=== PATIENT | female | born 1965 | race Hispanic/Latino ===

== ENCOUNTER 2017-10-02 00:22 | Emergency (ER) | payer OTHER ==
[~2017-10-02] VITALS: Ht 149.9 cm; Wt 62.1 kg
[~2017-10-02 00:22] MED LIST: ACYCLOVIR200 MG PO; ASPIR 8181 MG PO; CETIRIZINE HCL10 MG PO; COLD & COUGH E118 ML; FERROUS SULFAT325 MG PO; GABAPENTIN100 MG PO; IBUPROFEN400 MG PO; LIPITOR20 MG; ULTRAM50 MG PO
[2017-10-02] MEDS ORDERED: PANTOPRAZOLE 40 MG 10ML VIAL IV STA (00:29)
[2017-10-02 00:53] LABS: BASOPHILS % 0.2 % (0.0-1.0); BILIRUBIN,URINE NEGATIVE (NEGATIVE); EOSINOPHILS # (AUTO) 0.4 (0.0-0.4); EOSINOPHILS % 4.4 % (0.0-6.0); HEMATOCRIT 31.9 % (34.2-44.1); HEMOGLOBIN 9.8 g/dL (12.0-16.0); KETONES,URINE NEGATIVE (NEGATIVE); LEUKOCYTE ESTERASE ,URINE NEGATIVE (NEGATIVE); LYMPHOCYTES # (AUTO) 3.2 (1.0-3.2); LYMPHOCYTES % 37.8 % (18.0-39.1); MEAN CORPUSCULAR HEMOGLOBIN 23.2 pg (28-32); MEAN CORPUSCULAR HGB CONC 30.7 g/dL (31-35); MEAN CORPUSCULAR VOLUME 75.4 fL (81-99); MONOCYTES # (AUTO) 0.5 (0.2-0.8); MONOCYTES % 6.1 % (4.4-11.3); NEUTROPHILS # (AUTO) 4.3 (2.1-6.9); NEUTROPHILS % 51.3 % (38.7-80.0); NITRITE,URINE NEGATIVE (NEGATIVE); PLATELET COUNT 246 x10e3/uL (140-360); PROTEIN,URINE DIPSTICK NEGATIVE (NEGATIVE); RED BLOOD COUNT 4.23 x10e6/uL (3.6-5.1); URINE UROBILINOGEN 0.2 mg/dL (0.2 - 1)
[2017-10-02 00:54] LABS: CLARITY,URINE CLEAR (CLEAR); COLOR,URINE YELLOW (YELLOW)
[2017-10-02 00:59] LABS: BACTERIA,URINE RARE /HPF; EPITHELIAL CELLS,URINE FEW /LPF; RBC,URINE 0-5 /HPF (0-5); WBC,URINE (MAN) 0-5 /HPF (0-5)
[2017-10-02 01:12] LABS: ALANINE AMINOTRANSFERASE 36 IU/L (0-55); ALBUMIN 3.5 g/dL (3.5-5.0); ALBUMIN/GLOBULIN RATIO 0.8 (0.8-2.0); ALKALINE PHOSPHATASE 80 IU/L (40-150); AMYLASE 113 U/L (25-125); ANION GAP 14.6 mmol/L (8-16); BLOOD UREA NITROGEN 18 mg/dL (7-26); BUN/CREATININE RATIO 24 (6-25); CALCIUM 8.8 mg/dL (8.4-10.2); CARBON DIOXIDE 21 mmol/L (22-29); CHLORIDE 105 mmol/L (98-107); CREATININE, SERUM 0.76 mg/dL (0.57-1.11); EST GLOMERULAR FILTRATION RATE > 60 ML/MIN (60-); GLUCOSE 117 mg/dL (74-118); LIPASE 31 U/L (8-78); POTASSIUM 3.6 mmol/L (3.5-5.1); SODIUM 137 mmol/L (136-145)
--- NOTE | 2017-10-02 03:21 | Diagnostic Imaging Report ---
EXAM: CT ABDOMEN/PELVIS W DATE: 10/02/2017 12:29 AM INDICATION: \S\ABD PAIN, H/O COLON CANCER, \[id number] \S\0148 \S\Y COMPARISON: None TECHNIQUE: The abdomen and pelvis were scanned using a multidetector helical scanner. Coronal and sagittal reformations were obtained. Routine protocol performed. The radiologist was notified of this study at 3:00 AM due to technical issues. IV Contrast: 100 ml Isovue 370 FINDINGS: LOWER THORAX: No consolidations LIVER/BILIARY: No masses. No ductal dilatation. GALLBLADDER: Surgically absent SPLEEN: Unremarkable PANCREAS: Unremarkable ADRENALS: No nodules KIDNEYS: There is a 1.4 x 1.3 cm left superior posterior exophytic likely hyperenhancing lesion (image 26). No hydronephrosis. GI TRACT: There is a hyperenhancing 2.8 cm mass of the lateral cecum/proximal ascending colon wall (image 51). Diverticulosis. Status post appendectomy. VESSELS: Unremarkable PERITONEUM/RETROPERITONEUM: No free air or fluid LYMPH NODES: Rounded 6 mm ileocecal node (image 52, coronal image 53). No other suspicious adenopathy. REPRODUCTIVE ORGANS/BLADDER: Hysterectomy. Otherwise unremarkable SOFT TISSUES: Unremarkable BONES: No suspicious bone lesions. IMPRESSION: 1. Cecal/proximal ascending colon cancer. Subcentimeter reactive or metastatic ileocecal node. No distant metastatic disease. 2. Left superior renal lesion (1.4 cm), most compatible with small renal cell carcinoma. Discussed with Physician: ANN CHADWICK MD at 3:15 AM on 10/02/2017. Signed by: Dr Tarsha Mary MD on 10/02/2017 3:18 AM
[2017-10-02] MEDS ORDERED: SODIUM CHLORIDE 0.9% 50ML 50 ML ONE (07:11)
[2017-10-02] MEDS ORDERED: IOPAMIDOL 370 MG/ML 200 ML INFUS..BTL INJ ONE (07:13)
== END 2017-10-02 03:38 | disposition home or self-care (01) ==
LOC: ER 00:22
DX: R10.13 Epigastric pain (principal); Z85.038 Personal history of other malignant neoplasm of large intestine; Z86.73 Personal history of transient ischemic attack (TIA), and cerebral infarction without residual deficits
CPT/HCPCS: 36415; 74177; 80053; 81001; 82150; 83690; 85025; 99284; Q9967

== ENCOUNTER 2018-01-14 14:52 | Emergency (ER) | payer OTHER ==
[~2018-01-14] VITALS: Ht 149.9 cm; Wt 61.2 kg
--- OUTSIDE RECORDS SUMMARY | 2018-01-14 14:54 | XMS REPORT ---
Author Author [facility] Address Unknown Phone Unavailable Care Team Providers Care Substation Operator Conversion Name Role Phone ANN CHADIWCK Unavailable Unavailable DYLAN PRUITT Unavailable Unavailable BULMARO THEODORE Unavailable Unavailable HELEN GRIFFIN Unavailable Unavailable Problems This patient has no known problems. Allergies, Adverse Reactions, Alerts This patient has no known allergies or adverse reactions. Medications This patient has no known medications. Results Test Description Test Time Test Comments Text Results Atomic Results Result Comments CT ABDOMEN/PELVIS W [place] [address] Patient Name: SASHA POPE MR #: [id number] : 1965 Age/Sex: 52/F Req #: [id number] Adm Physician: Ordered by: ANN CHADWICK MD Report #: [id number] Location: ER Room/Bed: ___ Procedure: [id number] CT/CT ABDOMEN/PELVIS W Exam Date: 10/02/17 Exam Time: 147 REPORT STATUS: Signed EXAM: CT ABDOMEN/PELVIS W DATE: 10/02/2017 12:29 AM INDICATION: S ABD PAIN, H/O COLON CANCER, S [id number] S 0148 S Y COMPARISON: None TECHNIQUE: The abdomen and pelvis were scanned using a multidetector helical scanner. Coronal and sagittal reformations were obtained. Routine protocol performed. The radiologist was notified of this study at 3:00 AM due to technical issues. IV Contrast: 100 ml Isovue 370 FINDINGS: LOWER THORAX: No consolidations LIVER/BILIARY: No masses. No ductal dilatation. GALLBLADDER: Surgically absent SPLEEN: Unremarkable PANCREAS: Unremarkable ADRENALS: No nodules KIDNEYS: There is a 1.4 x 1.3 cm left superior posterior exophytic likely hyperenhancing lesion (image 26). No hydronephrosis. GI TRACT: There is a hyperenhancing 2.8 cm mass of the lateral cecum/proximal ascending colon wall (image 51). Diverticulosis. Status post appendectomy. VESSELS: Unremarkable PERITONEUM/ RETROPERITONEUM: No free air or fluid LYMPH NODES: Rounded 6 mm ileocecal node (image 52, coronal image 53). No other suspicious adenopathy. REPRODUCTIVE ORGANS/BLADDER: Hysterectomy. Otherwise unremarkable SOFT TISSUES: Unremarkable BONES: No suspicious bone lesions. IMPRESSION: 1. Cecal/proximal ascending colon cancer. Subcentimeter reactive or metastatic ileocecal node. No distant metastatic disease. 2. Left superior renal lesion (1.4 cm), most compatible with small renal cell carcinoma. Discussed with Physician: ANN CHADWICK MD at 3:15 AM on 10/02/2017. Signed by: Dr Isaac Mary MD on 10/02/2017 3:18 AM Dictated By: ISAAC MARY MD 7 Transcribed By: GARO on 10/02/17317 COPY TO: ANN CHADWICK MD CHEST 2 VIEWS [place] [address] Patient Name: SASHA POPE MR #: [id number] : 1965 Age/Sex: 52/F Req # : [id number] Adm Physician: Ordered by: DYLAN PRUITT MD Report #: [id number] Location: Room/Bed: Procedure: [id number] DX/CHEST 2 VIEWS Exam Date: 07/26/17 Exam Time: 1546 REPORT STATUS: Signed PROCEDURE: CHEST 2 VIEWS TECHNIQUE: PA and lateral chest INDICATION: Fall COMPARISON: [facility], DX, CHEST 2 VIEWS, 07/01/2017, 3:00. FINDINGS: Lungs are clear and symmetrically inflated. No pleural effusions. Normal heart size, mediastinal contour, and pulmonary vasculature. Loop recorder over the left hemithorax. Intact skeleton. Cholecystectomy clips. CONCLUSION: No acute abnormality. Dictated by: Billy Thorne M.D. on at 16:25 Electronically approved by: Billy Thorne M.D. on 07/26/2017 at 16:25 Dictated By: BILLY THORNE MD 24 Transcribed By: JERALD on 07/26/171624 COPY TO: DYLAN PRUITT MD CT CERVICAL SPINE WO [place] [address] Patient Name: SASHA POPE MR #: [id number] : 1965 Age/Sex: 52/F Req #: [id number] [facility] Physician: Ordered by: DYLAN PRUITT MD Report #: [id number] Location: ER Room/Bed: Procedure: [id number] CT/CT CERVICAL SPINE WO Exam Date: 07/26/17 Exam Time: 1530 REPORT STATUS: Signed Exams: Head and cervical spine CTs without IV contrast History: Trauma, fall hit right side of for head Comparison studies: Head CT 04/23/2015. Previous brain MRI of 2014 is currently on available on the PACS for comparison. Technique: Axial images were obtained from the brain and cervical spine. Coronal and sagittal images reconstructed from the axial data. Intravenous contrast: None Findings: Head CT: Scalp: No abnormalities. Bones: No fractures, blastic or lytic lesions. Extra-axial spaces: No masses. No fluid collections. Brain sulci: Appropriate for age. Ventricles: Normal in size and configuration. No hydrocephalus. Parenchyma: No mass, acute hemorrhage or acute or chronic cortical vascular insults. No abnormal densities. Minimal chronic small vessel ischemic changes as described on the previous brain MRI of 04/23 2015 are beyond resolution of CT. Sellar/ suprasellar region: No abnormalities. Craniocervical junction: The foramen magnum is patent. No Chiari one malformation. Cervical spine CT: Fractures: None. Soft tissues: No gross abnormalities. Atlantoaxial articulation: Intact. Alignment: Straightened curvature may be positional. No subluxations. Cervicomedullary junction: No abnormalities. The foramen magnum is patent. Vertebrae: No infection or neoplasm. Degenerative changes: Disc height is maintained. Patent canal and foramina. Small anterior disc ossify complexes at C4-C5 and C5-C6. Mild facet arthrosis at C5- C6 and C6-C7 Incidental findings: Atherosclerotic calcifications in the carotid siphons. Incidental 3 mm calcification in the right thyroid lobe. IMPRESSION: Head CT: 1. No acute abnormalities. 2. No changes from the previous head CT of 04/23/2015. Cervical spine CT: 1. No cervical spine fracture or subluxation. 2. Cannot adequately evaluate ligament, spinal cord and or vascular abnormalities on the basis of this examination. Signed by: Dr. John Saldivar M.D. on 07/26/2017 4:41 PM Dictated By : JOHN SALDIVAR MD 40 Transcribed By: GARO on 07/26/171640 COPY TO: DYLAN PRUITT MD CT BRAIN WO [place] [address] Patient Name: SASHA OPPE MR #: [id number] : 1965 Age/Sex: 52/F Req # : [id number] Adm Physician: Ordered by: DYLAN PRUITT MD Report #: [id number] Location: ER Room/Bed: Procedure: [id number] CT/CT BRAIN WO Exam Date: 07/26/17 Exam Time: 1530 REPORT STATUS: Signed Exams: Head and cervical spine CTs without IV contrast History: Trauma, fall hit right side of for head Comparison studies : Head CT 04/23/2015. Previous brain MRI of 04/23/2015 is currently on available on the PACS for comparison. Technique: Axial images were obtained from the brain and cervical spine. Coronal and sagittal images reconstructed from the axial data. Intravenous contrast: None Findings: Head CT: Scalp: No abnormalities. Bones: No fractures, blastic or lytic lesions. Extra-axial spaces: No masses. No fluid collections. Brain sulci: Appropriate for age. Ventricles: Normal in size and configuration. No hydrocephalus. Parenchyma: No mass, acute hemorrhage or acute or chronic cortical vascular insults. No abnormal densities. Minimal chronic small vessel ischemic changes as described on the previous brain MRI of 04/23 2015 are beyond resolution of CT. Sellar/suprasellar region: No abnormalities. Craniocervical junction: The foramen magnum is patent. No Chiari one malformation. Cervical spine CT: Fractures: None. Soft tissues: No gross abnormalities. Atlantoaxial articulation: Intact. Alignment: Straightened curvature may be positional. No subluxations. Cervicomedullary junction: No abnormalities. The foramen magnum is patent. Vertebrae: No infection or neoplasm. Degenerative changes: Disc height is maintained. Patent canal and foramina. Small anterior disc ossify complexes at C4-C5 and C5-C6. Mild facet arthrosis at C5-C6 and C6-C7 Incidental findings: Atherosclerotic calcifications in the carotid siphons. Incidental 3 mm calcification in the right thyroid lobe. IMPRESSION: Head CT: 1. No acute abnormalities. 2. No changes from the previous head CT of 04/23/2015. Cervical spine CT: 1. No cervical spine fracture or subluxation. 2. Cannot adequately evaluate ligament, spinal cord and or vascular abnormalities on the basis of this examination. Signed by: Dr. John Saldivar M.D. on 07/26/2017 4:41 PM Dictated By: JOHN SALDIVAR MD 40 Transcribed By: GARO on 07/26/171640 COPY TO: DYLAN PRUITT MD CHEST 2 VIEWS [place] [address] Patient Name: SASHA POPE MR #: [id number] : 1965 Age/Sex: 52/F Req # : [id number] Adm Physician: Ordered by: BULMARO THEODORE MD Report #: [id number] Location: ER Room/Bed: Procedure: [id number] DX/CHEST 2 VIEWS Exam Date: 07/01/17 Exam Time: 0300 REPORT STATUS: Signed CHEST 2 VIEWS, Technique: CHEST 2 VIEWS Comparison: 06/07/2017 Clinical history: Chest pain DISCUSSION : Stable appearance of the heart, mediastinum, lungs, pleural spaces, and bones. Stable left chest wall electronic device. IMPRESSION: No acute abnormality. Signed by: Dr Isaac Mary MD on 07/01/2017 3:47 AM Dictated By: ISAAC MARY MD 6 Transcribed By: GARO on 07/01/17346 COPY TO: BULMARO THEODORE MD CHEST SINGLE (PORTABLE) [place] [address] Patient Name: SASHA POPE MR #: [id number] : 1965 Age/Sex: 52/F Req #: [id number] Adm Physician: Ordered by: HELEN GRIFFIN MD Report #: [id number] Location: ER Room/Bed: Procedure: [id number] DX/CHEST SINGLE (PORTABLE) Exam Date: 06/07/17 Exam Time: 07 REPORT STATUS: Signed PROCEDURE: A single AP view of the chest. COMPARISON: Portable chest 04/23/2015. INDICATIONS: CHEST PAIN, SOB, COUGH FINDINGS: Lines/tubes: None. Lungs: The lungs are well inflated and clear. There is no evidence of pneumonia or pulmonary edema. Pleura: There is no pleural effusion or pneumothorax. Heart and mediastinum: The heart and the mediastinum are unremarkable. Bones: No acute bony abnormality. IMPRESSION: No acute radiographic abnormality. Dictated by: John Church M.D. on at 7:50 Electronically approved by: John Church M.D. on 2016 at 7:50 Dictated By: JOHN CHURCH MD 9 Transcribed By: JERALD on 06/07/17749 COPY TO: HELEN GRIFFIN MD
[2018-01-14 18:14] VITALS: BP 143/77
== END 2018-01-14 18:17 | disposition home or self-care (01) ==
LOC: FSED 14:52
DX: K92.2 Gastrointestinal hemorrhage, unspecified (principal); I10 Essential (primary) hypertension; Z85.038 Personal history of other malignant neoplasm of large intestine
CPT/HCPCS: 74177; 80053; 81003; 85025; 99284

== ENCOUNTER 2018-05-03 16:59 | Emergency (ER) | payer OTHER ==
[~2018-05-03] VITALS: Ht 149.9 cm; Wt 63.0 kg
[2018-05-03] MEDS ORDERED: ONDANSETRON HCL INJ 2 MG/ML VIAL IV STA (17:16)
[2018-05-03] MEDS ORDERED: MORPHINE SULFATE 2 MG/ML SYR IV STA (17:16)
[2018-05-03] MEDS ORDERED: FAMOTIDINE 20 MG/2 ML VIAL IV STA (17:16)
[2018-05-03] MEDS ORDERED: KETOROLAC TROMETHAMINE 30 MG/ML VIAL IV STA (19:10)
--- NOTE | 2018-05-03 21:18 | Diagnostic Imaging Report ---
EXAM: CT ABDOMEN AND PELVIS WITHOUT IV CONTRAST INDICATION: Right lower quadrant pain, history of kidney cancer COMPARISON: CT of the abdomen and pelvis with IV contrast October 02, 2017 TECHNIQUE: The abdomen and pelvis were scanned using a multidetector helical scanner. Coronal and sagittal reformations were obtained. Dose modulation, iterative reconstruction, and/or weight based adjustment of the mA/kV was utilized to reduce the radiation dose to as low as reasonably achievable. Routine protocol performed. IV Contrast: None Oral Contrast: None CTDIvol has been reviewed. It is below the limits set by the Radiation Protocol Committee (RPC). FINDINGS: LOWER THORAX: No consolidations LIVER: No masses BILIARY: Cholecystectomy. No ductal dilation. SPLEEN: No masses PANCREAS: No masses ADRENALS: No nodules KIDNEYS: Normal appearance of the right kidney. Surgical changes of partial left nephrectomy. No hydronephrosis. No nephroureterolithiasis. Normal CT of the abdomen and pelvis. GI TRACT: No wall thickening or obstruction. Sigmoid colon diverticulosis. Surgical changes around the cecum. No appendix. VESSELS: Minimal atherosclerotic changes of the abdominal aorta without aneurysm. PERITONEUM/RETROPERITONEUM: No free air or fluid LYMPH NODES: No lymphadenopathy REPRODUCTIVE ORGANS: The uterus and ovaries are not visualized. BLADDER: Normal SOFT TISSUES: Fat stranding in the anterior left abdomen may be postsurgical. Fat stranding left flank, consistent with postsurgical changes. BONES: No suspicious bone lesions. IMPRESSION: 1 interval partial left nephrectomy. 2. Interval surgical changes of the cecum. 3. No CT findings to explain patient's right lower quadrant pain. No nephroureterolithiasis. Signed by: Dr. Elvira Lake M.D. on 05/03/2018 9:13 PM
== END 2018-05-03 21:58 | disposition home or self-care (01) ==
LOC: FSED 16:59
DX: R10.33 Periumbilical pain (principal); R10.11 Right upper quadrant pain; R11.0 Nausea; I10 Essential (primary) hypertension; Z85.038 Personal history of other malignant neoplasm of large intestine; Z85.528 Personal history of other malignant neoplasm of kidney
CPT/HCPCS: 74176; 99284; J1885; J2405; J2270

== ENCOUNTER 2018-06-02 17:38 | Observation (INO) | payer OTHER ==
[~2018-06-02] VITALS: Ht 147.3 cm; Wt 64.5 kg
[2018-06-02 18:05] VITALS: BP 137/66
[2018-06-02 18:23] VITALS: BP 137/66
[2018-06-02] MEDS ORDERED: FENOFIBRATE145 MG (18:39)
[2018-06-02] MEDS ORDERED: SUCRALFATE1 GM PO (18:39)
[2018-06-02] MEDS ORDERED: GABAPENTIN300 MG PO (18:39)
[2018-06-02] MEDS ORDERED: TYLENOL WITH C1 EACH PO (18:39)
[2018-06-02] MEDS ORDERED: ONDANSETRON HCL INJ 2 MG/ML VIAL IV PRN (18:45)
[2018-06-02] MEDS ORDERED: HYDROMORPHONE 1MG/1ML INJ IV PRN (19:30)
[2018-06-02 19:45] VITALS: BP 135/61
[2018-06-02] MEDS ORDERED: HYDROMORPHONE 2MG/ML 2 MG/ML ML IV PRN (19:45)
--- NOTE | 2018-06-02 19:52 | Diagnostic Imaging Report ---
EXAMINATION: CHEST SINGLE (NOT PORTABLE) INDICATION: ^ABDOMEN PAIN ^[id number] ^1928 COMPARISON: Chest radiograph 07/26/2017 FINDINGS: AP view TUBES and LINES: None. LUNGS: Lungs are well inflated. Lungs are clear. There is no evidence of pneumonia or pulmonary edema. PLEURA: No pleural effusion or pneumothorax. HEART AND MEDIASTINUM: The cardiomediastinal silhouette is unremarkable. Loop recorder projects over the left chest. BONES AND SOFT TISSUES: No acute osseous lesion. Soft tissues are unremarkable. UPPER ABDOMEN: No free air under the diaphragm. IMPRESSION: No acute thoracic abnormality. Signed by: DR. Lopez Henson MD on 06/02/2018 7:49 PM
[2018-06-02] MEDS: DEXTROSE 5%/0.9% SOD CHL 1,000 ML IV SCH (20:10)
[2018-06-02] MEDS: LEVOFLOXACIN 500MG/D5W 100ML 100 ML IV SCH (20:21)
[2018-06-02 20:22] LABS: BILIRUBIN,URINE NEGATIVE (NEGATIVE); CLARITY,URINE SL CLOUDY (CLEAR); COLOR,URINE YELLOW (YELLOW); KETONES,URINE NEGATIVE (NEGATIVE); LEUKOCYTE ESTERASE ,URINE NEGATIVE (NEGATIVE); NITRITE,URINE NEGATIVE (NEGATIVE); PROTEIN,URINE DIPSTICK NEGATIVE (NEGATIVE); URINE UROBILINOGEN 0.2 mg/dL (0.2 - 1)
[2018-06-02 20:27] LABS: BASOPHILS % 0.3 % (0.0-1.0); EOSINOPHILS # (AUTO) 0.2 (0.0-0.4); EOSINOPHILS % 3.4 % (0.0-6.0); HEMOGLOBIN 11.8 g/dL (12.0-16.0); LYMPHOCYTES # (AUTO) 2.1 (1.0-3.2); LYMPHOCYTES % 30.7 % (18.0-39.1); MEAN CORPUSCULAR HEMOGLOBIN 27.8 pg (28-32); MEAN CORPUSCULAR HGB CONC 32.8 g/dL (31-35); MEAN CORPUSCULAR VOLUME 84.9 fL (81-99); MONOCYTES # (AUTO) 0.4 (0.2-0.8); MONOCYTES % 6.3 % (4.4-11.3); PLATELET COUNT 210 x10e3/uL (140-360); RED BLOOD COUNT 4.24 x10e6/uL (3.6-5.1); RED CELL DISTRIBUTION WIDTH 15.5 % (11.7-14.4)
[2018-06-02 20:33] LABS: BACTERIA,URINE FEW /HPF; EPITHELIAL CELLS,URINE MODERATE /LPF
[2018-06-02 20:47] LABS: ALANINE AMINOTRANSFERASE 62 IU/L (0-55); ALBUMIN 3.9 g/dL (3.5-5.0); ALKALINE PHOSPHATASE 89 IU/L (40-150); AMYLASE 63 U/L (25-125); ANION GAP 15.8 mmol/L (8-16); BLOOD UREA NITROGEN 14 mg/dL (7-26); BUN/CREATININE RATIO 18 (6-25); CALCIUM 9.7 mg/dL (8.4-10.2); CARBON DIOXIDE 23 mmol/L (22-29); CHLORIDE 102 mmol/L (98-107); CREATININE, SERUM 0.77 mg/dL (0.57-1.11); EST GLOMERULAR FILTRATION RATE > 60 ML/MIN (60-); GLUCOSE 101 mg/dL (74-118); LIPASE 16 U/L (8-78); POTASSIUM 3.8 mmol/L (3.5-5.1); SODIUM 137 mmol/L (136-145)
[2018-06-02 21:02] LABS: ERYTHROCYTE SEDIMENTATION RATE 41 mm/hr (0-20)
[2018-06-02] MEDS: METRONIDAZOLE 500MG/NS 100ML 100 ML IV SCH (21:25)
[2018-06-03] VITALS (8 sets, daily range): BP systolic 114–142; BP diastolic 59–76
--- NOTE | 2018-06-03 03:10 | Diagnostic Imaging Report ---
EXAM: ABDOMEN COMP INCL UPR or DECUB DATE: 06/03/2018 2:12 AM Time stamp on exam: 0233 hours INDICATION: Abdominal pain COMPARISON: None FINDINGS: LINES/TUBES: None BOWEL PATTERN: No evidence for obstruction. SOFT TISSUES: Surgical clips compatible with cholecystectomy and multiple sutures in the right lower quadrant compatible with prior bowel repair/resection LUNG BASES: Lung bases are clear. Partially visualized cardiac monitoring device BONES: No acute findings. IMPRESSION: Nonobstructive bowel gas pattern Signed by: Dr. Peter Cespedes M.D. on 06/03/2018 3:06 AM
[2018-06-03] MEDS: METRONIDAZOLE 500MG/NS 100ML 100 ML IV SCH ×3 (05:20→21:32)
[2018-06-03] MEDS: DEXTROSE 5%/0.9% SOD CHL 1,000 ML IV SCH ×3 (05:20→20:03)
--- NOTE | 2018-06-03 09:22 | Diagnostic Imaging Report ---
PROCEDURE:ABDOMINAL ULTRASOUND COMPARISON:CT abdomen and pelvis with contrast 10/02/2017, CT abdomen pelvis without contrast 05/03/2018. INDICATIONS:ABDOMINAL PAIN TECHNIQUE: Garrett-scale and color sonographic images were obtained of the abdomen in transverse and sagittal planes. FINDINGS: Liver: 14.4 cm in length in right midclavicular line. Normal parenchymal echogenicity. No masses. Main portal vein: 0.6 cm in caliber. hepatopetal flow Gallbladder: Surgically removed. Common Bile Duct: 0.2 cm in caliber. Right kidney: 9.9 cm in length. No solid or cystic mass lesion. No hydronephrosis. Normal renal cortical echogenicity. Left kidney: 9.3 cm in length. Contour deformity of the upper pole in keeping with partial left nephrectomy. No solid or cystic mass lesion. No hydronephrosis. Normal renal cortical echogenicity. Spleen: 10.4 cm in length. Uniform echotexture. Pancreas: The visualized portions are unremarkable. Inferior vena cava: Patent Aorta: Non-aneurysmal Ascites: None CONCLUSION: Post surgical changes related to partial left nephrectomy and cholecystectomy. Otherwise unremarkable abdominal ultrasound. Dictated by: Jeff Choudhury M.D. on 06/03/2018 at 9:29 Electronically approved by: Jeff Choudhury M.D. on 06/03/2018 at 9:29
[2018-06-03] MEDS ORDERED: HYDROMORPHONE 2MG/ML 2 MG/ML ML IV PRN (11:45)
[2018-06-03] MEDS: SUCRALFATE 1 GM TAB PO SCH ×2 (12:00→16:29)
[2018-06-03 12:23] LABS: OCCULT BLOOD STOOL NEGATIVE (NEGATIVE)
[2018-06-03] MEDS: GABAPENTIN 300 MG CAP PO SCH ×3 (13:00→21:32)
[2018-06-03 14:23] LABS: C DIFFICILE TOXIN A&B AMP PROB NEGATIVE (NEGATIVE)
--- NOTE | 2018-06-03 15:54 | History and Physical ---
CHIEF COMPLAINT: She is a 53-year-old female patient of mine who presented with right-sided upper abdominal pain. HISTORY OF PRESENT ILLNESS: Ms. Asher who had been diagnosed with right-sided colon cancer, and the patient had surgery and then followed by that the patient was found to have a left renal tumor with cancer, and the patient had partial nephrectomy. For the last 3 weeks, the patient was having severe right abdominal pain with some nausea. The patient had first emergency room visit at [facility] ER on [place] CT scan was done without contrast which was negative. The patient was discharged and then the patient continued to have pain and so the patient had come to the emergency room in [place], and the patient had a contrast CT done and was told that she might have UTI, and the patient was given Cipro, but the patient did not improve and the patient presented to the emergency room complaining of severe right-sided abdominal pain. PAST MEDICAL HISTORY: Significant for history of colon cancer and left kidney cancer, partial nephrectomy and colectomy in 2018. The patient had internal loop recorder implant done in 2015. Other medical history of hypertension, hyperlipidemia. Also, past surgical history of cholecystitis. ALLERGIES: NO KNOWN DRUG ALLERGIES. SOCIAL HISTORY: Denies smoking. Denies using alcohol. FAMILY HISTORY: diabetes mellitus. REVIEW OF SYSTEMS: As per HPI, right abdominal pain. PHYSICAL EXAMINATION GENERAL: A female patient lying in bed not in any acute distress. VITAL SIGNS: Temperature 98, pulse rate 88, HEENT: Normocephalic atraumatic. NECK: No JVD, no lymphadenopathy. LUNGS: Bilateral equal air entry; no rales, no rhonchi. HEART: S1, S2, regular, no murmur, no gallop. ABDOMEN: Soft, bowel sounds present. NEUROLOGIC: Nonfocal. No neurologic deficit. ADMITTING IMPRESSION DIAGNOSES 1. Severe right upper quadrant abdominal pain. 2. Gastritis. 3. Colitis. 4. History of colon cancer and renal cell cancer. PLAN: The patient will be admitted with the above diagnoses. The patient will be kept n.p.o. and IV fluids were given. An IV antibiotic will be given and will do cultures and stool for C. diff. and endoscopy. Will obtain previous CT scan of the abdomen report. Job#: [id number] [facility]
[2018-06-03] MEDS ORDERED: PANTOPRAZOLE 40 MG 10ML VIAL IV STA (17:54)
[2018-06-03] MEDS ORDERED: PROPOFOL IV EMULSION 10 MG/ML 50 ML VIAL ONE (18:58)
[2018-06-03] MEDS ORDERED: LIDOCAINE HCL 2% LOCAL INJ 5 ML SDV VIAL INJ ONE (18:58)
[2018-06-03] MEDS: PANTOPRAZOLE 40 MG 10ML VIAL IV SCH (19:10)
--- NOTE | 2018-06-03 19:18 | Operative Report ---
DATE OF PROCEDURE: June 03, 2018 REFERRING PHYSICIAN: Dr. China Hernandez. PROCEDURE PERFORMED: Esophagogastroduodenoscopy with biopsies. INDICATIONS FOR ESOPHAGOGASTRODUODENOSCOPY: Upper abdominal pain, nausea. MEDICATION: Patient was done under MAC. Please see anesthesiologist's note. PROCEDURE: With the patient in left lateral decubitus position, flexible fiberoptic Olympus gastroscope was introduced into the esophagus under direct visualization without any difficulty. There were some patchy erythema noted in distal esophagus. The scope was then advanced with ease into the stomach and mucosa overlying the antrum and the body revealed some diffuse intense erythema and moderate edema and biopsies were obtained and sent to stain for H. pylori. Pylorus appeared to be of normal contour and shape. It was intubated with ease and the scope was advanced all the way to the second portion of the duodenum. The scope was then withdrawn slowly. Mucosa overlying the proximal second portion and the duodenal bulb appeared to be within normal limits. The scope was then withdrawn back into the stomach and retroflexed and mucosa overlying the fundus and the cardia appeared to be within normal limits. The scope was then straightened out. The stomach was decompressed. The scope was subsequently withdrawn. Patient tolerated the procedure well. IMPRESSION 1. Distal esophagitis. 2. Gastritis, biopsied. Biopsies sent to stain for Helicobacter pylori. PLAN: Follow up histology. Initiate Protonix 40 mg 1 p.o. q.a.m. a.c.. Initiate full liquid diet. Job#: [id number] VAS cc:DR. China HERNANDEZ
[2018-06-03] MEDS: LEVOFLOXACIN 500MG/D5W 100ML 100 ML IV SCH (20:03)
[2018-06-04] VITALS (10 sets, daily range): BP systolic 107–142; BP diastolic 55–67
[2018-06-04] MEDS: DEXTROSE 5%/0.9% SOD CHL 1,000 ML IV SCH (04:20)
[2018-06-04 05:07] LABS: BASOPHILS % 0.4 % (0.0-1.0); EOSINOPHILS # (AUTO) 0.2 (0.0-0.4); EOSINOPHILS % 3.2 % (0.0-6.0); HEMATOCRIT 32.9 % (34.2-44.1); HEMOGLOBIN 10.6 g/dL (12.0-16.0); LYMPHOCYTES # (AUTO) 1.9 (1.0-3.2); LYMPHOCYTES % 35.6 % (18.0-39.1); MEAN CORPUSCULAR HEMOGLOBIN 27.7 pg (28-32); MEAN CORPUSCULAR HGB CONC 32.2 g/dL (31-35); MEAN CORPUSCULAR VOLUME 86.1 fL (81-99); MONOCYTES # (AUTO) 0.4 (0.2-0.8); MONOCYTES % 7.6 % (4.4-11.3); NEUTROPHILS # (AUTO) 2.8 (2.1-6.9); NEUTROPHILS % 53.2 % (38.7-80.0); PLATELET COUNT 169 x10e3/uL (140-360); RED BLOOD COUNT 3.82 x10e6/uL (3.6-5.1); RED CELL DISTRIBUTION WIDTH 15.5 % (11.7-14.4)
[2018-06-04 05:17] LABS: ALANINE AMINOTRANSFERASE 41 IU/L (0-55); ALBUMIN 3.1 g/dL (3.5-5.0); ALBUMIN/GLOBULIN RATIO 0.9 (0.8-2.0); ALKALINE PHOSPHATASE 66 IU/L (40-150); ANION GAP 13.8 mmol/L (8-16); BLOOD UREA NITROGEN 5 mg/dL (7-26); BUN/CREATININE RATIO 6 (6-25); CALCIUM 9.1 mg/dL (8.4-10.2); CARBON DIOXIDE 23 mmol/L (22-29); CHLORIDE 109 mmol/L (98-107); CREATININE, SERUM 0.79 mg/dL (0.57-1.11); EST GLOMERULAR FILTRATION RATE > 60 ML/MIN (60-); GLUCOSE 101 mg/dL (74-118); POTASSIUM 3.8 mmol/L (3.5-5.1); SODIUM 142 mmol/L (136-145)
[2018-06-04] MEDS: PANTOPRAZOLE 40 MG 10ML VIAL IV SCH ×2 (05:46→17:21)
[2018-06-04] MEDS: METRONIDAZOLE 500MG/NS 100ML 100 ML IV SCH ×3 (05:46→21:27)
[2018-06-04] MEDS: FENOFIBRATE 160 MG TABLET PO SCH (08:53)
[2018-06-04] MEDS: GABAPENTIN 300 MG CAP PO SCH ×4 (08:53→21:27)
[2018-06-04] MEDS: SUCRALFATE 1 GM TAB PO SCH ×3 (08:53→17:19)
[2018-06-04] MEDS: LEVOFLOXACIN 500MG/D5W 100ML 100 ML IV SCH (20:00)
[2018-06-04] MEDS: ACETAMINOPHEN 325 MG TAB PO PRN (20:02)
[2018-06-05] VITALS (7 sets, daily range): BP systolic 98–142; BP diastolic 55–69
[2018-06-05] MEDS: METRONIDAZOLE 500MG/NS 100ML 100 ML IV SCH (05:35)
[2018-06-05] MEDS: PANTOPRAZOLE 40 MG 10ML VIAL IV SCH (05:35)
[2018-06-05] MEDS: FENOFIBRATE 160 MG TABLET PO SCH (09:00)
[2018-06-05] MEDS ORDERED: DICYCLOMINE HCL 10 MG CAP PO SCH (09:00)
[2018-06-05] MEDS: GABAPENTIN 300 MG CAP PO SCH ×2 (09:02→12:16)
[2018-06-05] MEDS: SUCRALFATE 1 GM TAB PO SCH ×2 (09:02→12:16)
[2018-06-05] MEDS ORDERED: PANTOPRAZOLE SO40 MG PO (10:46)
[2018-06-05] MEDS: ACETAMINOPHEN 325 MG TAB PO PRN (12:17)
--- NOTE | 2018-08-02 04:16 | Discharge Summary ---
CHIEF COMPLAINT: Right abdominal pain, colon CA with kidney CA. FINAL DIAGNOSES 1. Acute gastritis. 2. Esophagitis. 3. Vascular headaches. PROCEDURE: EGD. DISPOSITION: Home. HOSPITAL COURSE: A 53-year-old female who presents to emergency room of this facility complaining of right abdominal pain, has history of colon CA, has history of left kidney CA. The patient is a direct admit to the [facility] floor to my service. She also has a history of UTI, hypertension and gastritis. Once on the floor, she will be started on IV fluids, lab studies will be requested. X-rays of abdomen will be requested. She will be started on Flagyl as well as Levaquin. GI review will be made with Dr. Arenas. Pain management will be placed as well. Once admitted, regarding her GI status, GI history, she was being reviewed by Dr. Gabriel Arenas and following his evaluation of the patient, his impression was positive upper abdominal pain, nausea for 3-week history. The patient is status post cholecystectomy. Will schedule the patient for EGD. Known history of colon resection, CA of colon, status post partial left nephrectomy for CA. She was in the IMCU with admission, she was started on NPO status. She was receiving levothyroxine as well as Flagyl. On IV fluids. She was given pain management as well as medications for nausea. Laboratory studies were showing stable electrolytes. Kidney function is stable. Glucose 101, CBC was stable. Her daily medications were being brought on board as well. Her diet was upgraded to a full liquid diet. C. diff studies were performed. It turned out to be negative. Stool for occult blood turned out to be negative. Underwent the EGD by Dr. Mark Arenas. Post procedure, she was still doing well. No more nausea or vomiting. Her abdominal pain had definitely improved. Still maintained full liquid diet that will be slowly advanced as tolerated. Lab studies were remaining stable and she was cleared for discharge and she ready to be released home on 06/05/2018 in good condition. PROCEDURES: EGD, 06/03/2018, Dr. Mark Arenas. Procedure was EGD with biopsies. Indications were upper abdominal pain with nausea. The procedure was carried out. The procedure was terminated. Findings from the procedure were showing distal esophagitis, and gastritis which was biopsied. The patient will begin Protonix 40 mg one tablet p.o. q.a.m. a.c. and we will be getting back on full liquid diet. Returned to recovery room in good condition. As mentioned, postop was uneventful. She was improving and she was cleared for discharge. With discharge, she will continue on GI soft diet and increase as tolerated. No equipment or supplies were necessary. No drains or [place] was needed. Activity level as directed by me as well as by Dr. Mark Arenas. FOLLOWUP: She will be returning back to her PCP, Dr. China Vera, in 2 days. Following back up with Dr. Mark Arenas in his office within 2 to 3 weeks for reevaluation. DISCHARGE MEDICATIONS: She was given a prescription for Protonix 40 mg one tablet p.o. daily. She will continue on Tylenol No. 3 300 mg tablet three times a day as needed for pain, fenofibrate 160 mg daily, gabapentin 300 mg four times a day, sucralfate 1 g three times a day. Dictated By: DAVIDE Sarkar. CIRO VERA MD Job#: [id number] ESTEVAN
== END 2018-06-05 13:27 | disposition home or self-care (01) ==
LOC: IMCU 17:38
PROVIDERS: ADMIT Internal Medicine; ATTEND Internal Medicine
DX: K29.70 Gastritis, unspecified, without bleeding (principal); K20.9 Esophagitis, unspecified; I10 Essential (primary) hypertension; E78.5 Hyperlipidemia, unspecified; Z95.811 Presence of heart assist device; K52.9 Noninfective gastroenteritis and colitis, unspecified; Z88.5 Allergy status to narcotic agent; Z90.5 Acquired absence of kidney; G44.1 Vascular headache, not elsewhere classified; Z85.038 Personal history of other malignant neoplasm of large intestine; Z85.528 Personal history of other malignant neoplasm of kidney
CPT/HCPCS: 36415 ×2; 43239; 71045; 76700; 80053 ×2; 81001; 82150; 82270; 83690; 85025 ×2; 85651; 87045; 87086; 87328; 87493; 88305; 88312; 96367 ×3; 96376; G0378 ×4; J1170; J1956 ×3; J2001; J2405; J7042 ×3; 96365

== ENCOUNTER → 2018-06-29 | Day surgery (SDC) | payer OTHER ==
[~2018-06-29] MED LIST changes: +FENOFIBRATE145 MG; +FENTANYL CITRATE/PF 100MCG/2 ML INJ ONE; +GABAPENTIN300 MG PO; +MIDAZOLAM HCL 2 MG/2 ML VIAL ONE; +PANTOPRAZOLE SO40 MG PO; +PROPOFOL IV EMULSION 10 MG/ML 50 ML VIAL ONE; +SUCRALFATE1 GM PO; +TYLENOL WITH C1 EACH PO
[2018-06-29 14:30] VITALS: BP 150/81
[2018-06-29 14:35] LABS: WBC,FECAL (FECAL LACTOFERRIN) NEGATIVE (NEGATIVE)
--- NOTE | 2018-06-29 14:53 | Operative Report ---
DATE OF PROCEDURE: June 29, 2018 REFERRING PHYSICIAN: Dr. China Hernandez. PROCEDURE PERFORMED: Colonoscopy and polypectomy with biopsies. INDICATIONS FOR COLONOSCOPY: History of colon cancer, diarrhea. MEDICATION: Patient was done under MAC. Please see anesthesiologist's note. PROCEDURE: With the patient in the left lateral decubitus position, the flexible fiberoptic Olympus colonoscope was inserted into the rectum with ease and advanced all the way to the ileocolic anastomosis. Anastomosis appeared intact. There was no evidence of recurrence. The scope was then withdrawn slowly, and the mucosa throughout the colon revealed some patchy areas of erythema and low-grade edema, and random biopsies were obtained. There was some scattered diverticular disease noted. Two polyps were hot biopsied from the transverse colon. Two polyps were hot biopsied from the sigmoid colon. The scope was then retroflexed into the distal rectum and small internal hemorrhoids were noted, none of which was actively bleeding. The scope was then straightened out. It was subsequently withdrawn after securing an adequate stool specimen that was sent for the appropriate stool studies. Patient tolerated the procedure well. IMPRESSION: 1. Ileocolic anastomosis intact. No evidence of recurrence. 2. Diverticulosis. 3. Rule out patchy mild colitis. Random biopsies obtained. 4. Transverse colon polyps times 2 hot biopsied. 5. Sigmoid colon polyps times 2 hot biopsied. 6. Internal hemorrhoids, none actively bleeding. PLAN: Follow up histology. Initiate VSL#3 one p.o. daily and Bentyl 10 mg 1 p.o. t.i.d. Timing of followup colonoscopy pending pathology report. Job#: [id number] EV cc:CIRO HERNANDEZ MD
[2018-06-30 13:03] LABS: C DIFFICILE TOXIN A&B AMP PROB NEGATIVE (NEGATIVE)
== END | disposition home or self-care (01) ==
LOC: OR 10:24
PROVIDERS: ATTEND Internal Medicine Gastroenterology
DX: Z85.038 Personal history of other malignant neoplasm of large intestine (principal); K57.30 Diverticulosis of large intestine without perforation or abscess without bleeding; K63.5 Polyp of colon; K64.8 Other hemorrhoids; R03.0 Elevated blood-pressure reading, without diagnosis of hypertension; Z88.5 Allergy status to narcotic agent
CPT/HCPCS: 45384; 83630; 83993; 87045; 87177; 87328; 87493; 93005; J2250; 45378; 45385

== ENCOUNTER 2018-10-20 00:06 | Emergency (ER) | payer OTHER ==
[~2018-10-20] VITALS: Ht 147.3 cm; Wt 63.5 kg
[~2018-10-20 00:06] MED LIST changes: -FENTANYL CITRATE/PF 100MCG/2 ML INJ ONE; -MIDAZOLAM HCL 2 MG/2 ML VIAL ONE; -PROPOFOL IV EMULSION 10 MG/ML 50 ML VIAL ONE
--- OUTSIDE RECORDS SUMMARY | 2018-10-20 00:10 | XMS REPORT | Continuity of Care Document ---
Author Author [facility] Interface Address Unknown Phone Unavailable Problems Problem Status Onset Date Classification Date Reported Comments Source BACK Active 10/11/2018 [facility] [place] Discharge Diagnosis: Chest pain 02/26/2017 03/01/2017 [facility] CHEST PAIN Active 02/25/2017 [facility] Medications Medication Details Route Status Patient Instructions Ordering Provider Order Date Source Aspirin 81 MG Chewable Tablet 324 mg, Route: PO, Drug form: CHEWTAB, ONCE, Dosing Weight 62.273, kg, Priority: STAT, Start date: 02/26/17 4:29:00 CDT, Stop date: 02/26/17 4:29:00 CDT Inactive 02/26/2017 [facility] Allergies, Adverse Reactions, Alerts Substance Category Reaction Severity Reaction type Status Date Reported Comments Source morphine Assertion Drug allergy Active [facility] Immunizations Immunization Date Given Site Status Last Updated Comments Source Results Order Name Results Value Reference Range Date Interpretation Comments Source CARDIAC ENZYMES Troponin-I null 0.00 - 0.40 02/26/2017 [facility] CARDIAC ENZYMES CK MB Index 0.8 0.0 - 2.5 02/26/2017 [facility] CARDIAC ENZYMES BNP 49 pg/mL <=100 pg/mL 02/26/2017 [facility] CARDIAC ENZYMES Total CK 101 unit/L 12 - 191 02/26/2017 [facility] CARDIAC ENZYMES CK MB 0.8 ng/mL 0.5 - 3.6 02/26/2017 [facility] CARDIAC ENZYMES Troponin-I null 0.00 - 0.40 02/26/2017 [facility] CHEM PANEL eGFR 94 mL/min/1.73m2 02/26/2017 Result Comment: The eGFR is calculated using the CKD-EPI formula. In most young, healthy individuals the eGFR will be >90 mL/min/1.73m2. The eGFR declines with age. An eGFR of 60-89 may be normal in some populations, particularly the elderly, for whom the CKD-EPI formula has not been extensively validated. Use of the eGFR is not recommended in the following populations: Individuals with unstable creatinine concentrations, including patients and those with serious co-morbid conditions. Patients with extremes in muscle mass or diet. The data above are obtained from the National Kidney Disease Education Program (NKDEP) which additionally recommends that when the eGFR is used in patients with extremes of body mass index for purposes of drug dosing, the eGFR should be multiplied by the estimated BMI. [facility] CHEM PANEL A/G Ratio 0.8 0.7 - 1.6 02/26/2017 [facility] CHEM PANEL Creatinine Lvl 0.73 mg/dL 0.50 - 1.40 02/26/2017 [facility] CHEM PANEL BUN 15 mg/dL 7 - 22 02/26/2017 [facility] CHEM PANEL Glucose Lvl 99 mg/dL 70 - 99 02/26/2017 [facility] CHEM PANEL AGAP 7.9 meq/L 10.0 - 20.0 02/26/2017 [facility] CHEM PANEL Bili Total 0.1 mg/dL 0.2 - 1.3 02/26/2017 [facility] CHEM PANEL ALT 72 unit/L 0 - 65 02/26/2017 [facility] CHEM PANEL Albumin Lvl 3.4 g/dL 3.5 - 5.0 02/26/2017 [facility] CHEM PANEL Total Protein 7.9 g/dL 6.4 - 8.4 02/26/2017 [facility] CHEM PANEL B/C Ratio 21 6 - 25 02/26/2017 [facility] CHEM PANEL Globulin 4.5 g/dL 2.7 - 4.2 02/26/2017 [facility] CHEM PANEL Sodium Lvl 139 meq/L 135 - 145 02/26/2017 [facility] CHEM PANEL Chloride Lvl 106 meq/L 95 - 109 02/26/2017 [facility] CHEM PANEL Potassium Lvl 3.9 meq/L 3.5 - 5.1 02/26/2017 [facility] CHEM PANEL Alk Phos 90 unit/L 39 - 136 02/26/2017 [facility] CHEM PANEL AST 55 unit/L 0 - 37 02/26/2017 [facility] CHEM PANEL CO2 29 meq/L 24 - 32 02/26/2017 [facility] CHEM PANEL Calcium Lvl 8.9 mg/dL 8.5 - 10.5 02/26/2017 [facility] HEMATOLOGY Segs-Bands # 4.6 K/CMM 1.5 - 8.1 02/26/2017 [facility] HEMATOLOGY Eosinophils 3.3 % 0.0 - 4.0 02/26/2017 [facility] HEMATOLOGY Basophils 0.4 % 0.0 - 1.0 02/26/2017 [facility] Eosinophils # 0.3 K/CMM 0.0 - 0.5 02/26/2017 [facility] Monocytes # 0.7 K/CMM 0.0 - 0.8 02/26/2017 [facility] Lymphocytes # 2.9 K/CMM 1.0 - 5.5 02/26/2017 [facility] Microcyte 1+ *ABN* (02/26/17 12:56 AM) None Seen 02/26/2017 [facility] Segs 53.8 % 45.0 - 75.0 02/26/2017 [facility] Lymphocytes 34.4 % 20.0 - 40.0 02/26/2017 [facility] Monocytes 8.1 % 2.0 - 12.0 02/26/2017 [facility] D-Dimer null 02/26/2017 [facility] PTT 24.1 s 22.9 - 35.8 02/26/2017 [facility] INR 0.98 0.85 - 1.17 02/26/2017 [facility] PT 13.2 s 12.0 - 14.7 02/26/2017 [facility] MCHC 32.4 g/dL 32.0 - 36.0 02/26/2017 [facility] Hgb 10.6 g/dL 12.0 - 16.0 02/26/2017 [facility] WBC 8.5 K/CMM 3.7 - 10.4 02/26/2017 [facility] RBC 4.17 M/CMM 4.20 - 5.40 02/26/2017 [facility] RDW 15.9 % 11.5 - 14.5 02/26/2017 [facility] MCV 78.8 fL 80.0 - 98.0 02/26/2017 [facility] Hct 32.9 % 36.0 - 48.0 02/26/2017 [facility] MCH 25.5 pg 27.0 - 31.0 02/26/2017 [facility] Platelet 255 K/CMM 133 - 450 02/26/2017 [facility] MPV 7.2 fL 7.4 - 10.4 02/26/2017 [facility] Chest 1view DX Chest 1view DX EXAM: XR CHEST 1 VIEW DATE: 02/26/2017 12:49 AM CDT INDICATION: Chest pain. COMPARISON: 03/08/2016. TECHNIQUE: A single AP view of the chest was obtained. FINDINGS: No focal consolidation or pneumothorax is identified. The cardiac silhouette is mildly enlarged. The costophrenic recesses are sharp and without effusion. No acute osseous abnormality is noted. IMPRESSION: No acute cardiopulmonary abnormality. SL: [id number] 02/26/2017 - - Read by: Houston Bella MD Dictated Date/time: 02/26/17 01:02 Electronically Signed by: Houston Bella MD 02/26/17 01:03 FINAL REPORT [facility] Vital Signs Vital Sign Value Date Comments Source Systolic (mm Hg) 128 02/26/2017 [facility] Diastolic (mm Hg) 74 02/26/2017 [facility] Respitory Rate 18 02/26/2017 [facility] Respitory Rate 15 02/26/2017 [facility] Systolic (mm Hg) 126 02/26/2017 [facility] Diastolic (mm Hg) 78 02/26/2017 [facility] Systolic (mm Hg) 148 02/26/2017 [facility] Diastolic (mm Hg) 66 02/26/2017 [facility] Respitory Rate 25 02/26/2017 [facility] Temperature Oral (F) 98.7 F 02/26/2017 [facility] Heart Rate 98 02/26/2017 [facility] BMI Calculated 28.69 02/26/2017 [facility] Weight 62.273 02/26/2017 [facility] Temperature Oral (F) 98.6 F 02/26/2017 [facility] Height 147.32 cm 02/26/2017 [facility] Heart Rate 67 02/26/2017 [facility] Encounters Location Location Details Encounter Type Encounter Number Reason For Visit Attending Provider ADM Date DC Date Status Source [facility] Emergency [id number] Elvia Pinto 02/26/2017 02/26/2017 [facility] Procedures Procedure Code Date Perfomer Comments Source
[2018-10-20] MEDS ORDERED: ONDANSETRON HCL INJ 2MG/ML 2ML 2 MG/ML VIAL IV STA (00:22)
[2018-10-20] MEDS ORDERED: KETOROLAC TROMETHAMINE 30 MG/ML VIAL IV STA (00:22)
[2018-10-20] MEDS ORDERED: SODIUM CHLORIDE 0.9% 1000ML 1,000 ML IV SCH (00:30)
[2018-10-20] MEDS ORDERED: KETOROLAC TROME10 MG PO (01:15)
--- NOTE | 2018-10-20 01:34 | Diagnostic Imaging Report ---
EXAM: CT Abdomen and Pelvis WITHOUT contrast INDICATION: Right upper quadrant pain. ^[id number] ^[id number] COMPARISON: CT abdomen and pelvis 05/03/2018 TECHNIQUE: Abdomen and pelvis were scanned utilizing a multidetector helical scanner from the lung base to the pubic symphysis without administration of IV contrast. Absence of intravenous contrast decreases sensitivity for detection of focal lesions and vascular pathology. Coronal and sagittal reformations were obtained. Routine protocol was performed. IV CONTRAST: None ORAL CONTRAST: Water COMPLICATIONS: None RADIATION DOSE: Total DLP: 620.52 mGy*cm Estimated effective dose: (DLP x 0.015 x size factor) mSv Dose modulation, iterative reconstruction, and/or weight based adjustment of the mA/kV was utilized to reduce the radiation dose to as low as reasonably achievable. FINDINGS: LINES and TUBES: None. LOWER THORAX: Unremarkable HEPATOBILIARY: No focal hepatic lesions. No biliary ductal dilation. GALLBLADDER: Cholecystectomy. SPLEEN: No splenomegaly. PANCREAS: No focal masses or ductal dilatation. ADRENALS: No adrenal nodules KIDNEYS/URETERS: Stable postsurgical changes of partial left nephrectomy. No hydronephrosis. No cystic or solid mass lesions. No stones. GI TRACT: No abnormal distention, wall thickening, or evidence of bowel obstruction. There are diverticula within the colon without evidence of diverticulitis. There are post surgical changes of appendectomy. PELVIC ORGANS/BLADDER: Hysterectomy. No adnexal masses. Underdistended bladder, limiting evaluation. LYMPH NODES: No lymphadenopathy. VESSELS: There is mild atherosclerotic disease in the aorta and major arterial branches. PERITONEUM / RETROPERITONEUM: No free air or fluid. BONES: There are degenerative changes in the lumbar spine. SOFT TISSUES: Unremarkable. IMPRESSION: No acute abnormalities. Signed by: DR. Lopez Henson MD on 10/20/2018 1:31 AM
[2018-10-20] MEDS ORDERED: OMEPRAZOLE40 MG PO (01:40)
[2018-10-20 01:59] VITALS: BP 144/73
[2018-10-20] MEDS ORDERED: IOPAMIDOL 370 MG/ML 200 ML INFUS..BTL INJ ONE (13:59)
[2018-10-20] MEDS ORDERED: SODIUM CHLORIDE 0.9% 50ML 50 ML ONE (13:59)
== END 2018-10-20 01:53 | disposition home or self-care (01) ==
LOC: FSED 00:06
DX: R10.11 Right upper quadrant pain (principal); Z85.038 Personal history of other malignant neoplasm of large intestine
CPT/HCPCS: 74176; 80053; 81003; 82553; 84484; 85025; 93005; 99284; Q9967

== ENCOUNTER 2018-10-20 04:21 | Observation (INO) | payer OTHER ==
[~2018-10-20] VITALS: Ht 147.3 cm; Wt 65.0 kg
[~2018-10-20 04:21] MED LIST changes: +KETOROLAC TROME10 MG PO; +OMEPRAZOLE40 MG PO
[2018-10-20] MEDS ORDERED: FENTANYL CITRATE/PF 100MCG/2 ML INJ IJ ONE (04:45)
[2018-10-20] MEDS ORDERED: DONNATAL/LIDOCAINE/MAALOX 30 ML SUSP PO ONE (04:45)
[2018-10-20] MEDS ORDERED: FENTANYL CITRATE/PF 100MCG/2 ML INJ IV ONE ×3 (06:30→09:45)
[2018-10-20] MEDS ORDERED: ONDANSETRON HCL INJ 2MG/ML 2ML 2 MG/ML VIAL IV PRN (06:30)
[2018-10-20] MEDS ORDERED: PANTOPRAZOLE 40 MG 10ML VIAL IV STA (06:35)
[2018-10-20] MEDS ORDERED: HYDROMORPHONE 1MG/1ML INJ IV PRN (06:45)
--- NOTE | 2018-10-20 08:35 | NUR ---
Received report from AVELINA Bond. Awating for patient to arrive at facility.
--- NOTE | 2018-10-20 09:55 | NUR ---
Patient arrived at facility at this time.
[2018-10-20] MEDS ORDERED: FENOFIBRATE 145 MG TAB PO SCH ×2 (10:45→21:00)
[2018-10-20] MEDS: D5.45%NS/KCL 20MEQ 1,000 ML IV SCH ×3 (11:04→22:40)
--- NOTE | 2018-10-20 11:15 | NUR ---
Walking rounds completed with Jonah QUAN, day shift nurse. Assumed care, pt in no acute distress at this time.
[2018-10-20 13:20] VITALS: BP 132/59
[2018-10-20] MEDS: SUCRALFATE 1 GM TAB PO SCH ×2 (13:53→16:30)
--- NOTE | 2018-10-20 14:26 | Diagnostic Imaging Report ---
EXAM: CT Abdomen and Pelvis WITH contrast INDICATION: Right sided abdominal pain. COMPARISON: CT abdomen and pelvis 10/20/2018 at 0048 hours TECHNIQUE: Abdomen and pelvis were scanned utilizing a multidetector helical scanner from the lung base to the pubic symphysis with administration of IV contrast. Coronal and sagittal reformations were obtained. Routine protocol was performed. Dose modulation, iterative reconstruction and/or weight based adjustment of the mA/kV was utilized to reduce the radiation dose to as low as reasonably achievable. IV CONTRAST: 100 cc of Isovue-370 ORAL CONTRAST: Water COMPLICATIONS: None RADIATION DOSE: Total DLP: 417.76 mGy*cm Estimated effective dose: (DLP x 0.015 x size factor) mSv FINDINGS: LINES and TUBES: None. LOWER THORAX: Unremarkable HEPATOBILIARY: Fatty infiltration of the liver. No focal hepatic lesions. No biliary ductal dilation. GALLBLADDER: Cholecystectomy. SPLEEN: No splenomegaly. PANCREAS: No focal masses or ductal dilatation. ADRENALS: No adrenal nodules KIDNEYS/URETERS: Stable postsurgical changes of partial left upper pole nephrectomy. No hydronephrosis. No cystic or solid mass lesions. No stones. GI TRACT: No abnormal distention, wall thickening, or evidence of bowel obstruction. Diverticulosis without evidence of diverticulitis. There are post surgical changes of appendectomy. PELVIC ORGANS/BLADDER: Hysterectomy. No adnexal masses. Underdistended bladder, limiting evaluation. Pelvic calcification superior to the bladder and just underneath the colon mimics a bladder stone but on the basis of the sagittal reformations appears outside of the bladder. LYMPH NODES: No lymphadenopathy. VESSELS: Atherosclerotic calcification. PERITONEUM / RETROPERITONEUM: No free air or fluid. BONES: Mild degenerative changes in the lumbar spine. SOFT TISSUES: Unremarkable. IMPRESSION: 1. Fatty infiltration of the liver. 2. Diverticulosis without evidence of inflammation. Signed by: Dr. Gallito Dunbar DO on 10/20/2018 2:23 PM
[2018-10-20 15:51] VITALS: BP 109/54
[2018-10-20 16:00] VITALS: BP 109/54
[2018-10-20 16:14] VITALS: BP 109/54
[2018-10-20] MEDS: GABAPENTIN 300 MG CAP PO SCH ×2 (16:45→21:22)
[2018-10-20] MEDS: HYDROMORPHONE 2MG/ML 2 MG/ML ML IV PRN (16:45)
--- NOTE | 2018-10-20 19:00 | NUR ---
Patient visited in room during nursing rounds. Patient alert and oriented x3. No distress or discomfort noted. Ambulatory in room prn. Pt on IVF (D51/2NS with 20meqKCL at 125ml/hr). Call purcell within reach. Will monitor closely.
[2018-10-20 20:00] VITALS: BP 109/54
[2018-10-20 20:18] VITALS: BP 124/58
[2018-10-20] MEDS: FENOFIBRATE 145 MG TAB PO SCH (21:22)
[2018-10-21] VITALS (8 sets, daily range): BP systolic 105–140; BP diastolic 53–63
[2018-10-21] MEDS: PANTOPRAZOLE 40 MG 10ML VIAL IV SCH ×2 (01:52→14:45)
--- NOTE | 2018-10-21 04:09 | History and Physical ---
HISTORY OF PRESENT ILLNESS: This is a 53-year-old female patient of mine, who had presented to my office yesterday with right-sided abdominal pain. The patient was evaluated in the office and sent for the outpatient CAT scan with contrast as the patient has history of kidney cancer, colon cancer, colectomy, and left nephrectomy. The patient denies having any nausea or vomiting. The patient is stating that pain medication is not helping her. Subsequently, the patient had gone to the [facility] yesterday night. The patient was evaluated and noncontrast CT was done and the patient was discharged home with pain medicine, but the patient continued to have severe pain, so the patient did come back to emergency room last night and the patient was subsequently admitted. The patient's noncontrast CT had not shown any abnormalities. PAST MEDICAL HISTORY: History of lumbar and cervical spondylosis and radiculopathy, herpes zoster, and history of cardiac arrhythmias. ALLERGIES: THE PATIENT IS ALLERGIC TO MORPHINE. PAST SURGICAL HISTORY: Left nephrectomy, internal heart monitor was placed, and the patient had appendectomy. The patient has internal loop recorder implanted in 2016. PHYSICAL EXAMINATION: GENERAL: She is an elderly female patient, lying in bed, not in any acute distress. VITAL SIGNS: Temperature 99, pulse rate is 100, respiratory rate 16, and blood pressure 110/80. HEENT: Normocephalic, atraumatic. NECK: No JVD. No lymphadenopathy. LUNGS: Bilateral equal air entry. No rales. No rhonchi. HEART: S1 and S2, regular. No murmur. No gallop. ABDOMEN: Soft. Bowel sounds are present. The patient has right-sided mid abdomen severe tenderness present. NEUROLOGIC: No focal neurological deficits. ADMITTING INPATIENT DIAGNOSES: Severe right-sided abdominal pain, history of renal cell cancer, colon cancer, gastritis, colitis, irritable bowel syndrome, history of herpes zoster, and lumbar and cervical radiculopathy. PLAN: The patient will be admitted with the above diagnoses. We will do CT scan with contrast study. We will obtain GI and Surgery evaluation. We will continue the patient on gabapentin and give IV analgesics. MD EDUARDO Cortez/RACHELL /[id number]
[2018-10-21 05:12] LABS: BASOPHILS % 0.2 % (0.0-1.0); EOSINOPHILS # (AUTO) 0.3 (0.0-0.4); EOSINOPHILS % 6.4 % (0.0-6.0); HEMATOCRIT 33.2 % (34.2-44.1); HEMOGLOBIN 10.7 g/dL (12.0-16.0); LYMPHOCYTES # (AUTO) 1.8 (1.0-3.2); LYMPHOCYTES % 41.4 % (18.0-39.1); MEAN CORPUSCULAR HEMOGLOBIN 28.6 pg (28-32); MEAN CORPUSCULAR HGB CONC 32.2 g/dL (31-35); MEAN CORPUSCULAR VOLUME 88.8 fL (81-99); MONOCYTES # (AUTO) 0.3 (0.2-0.8); MONOCYTES % 6.7 % (4.4-11.3); NEUTROPHILS % 45.1 % (38.7-80.0); PLATELET COUNT 165 x10e3/uL (140-360); RED BLOOD COUNT 3.74 x10e6/uL (3.6-5.1); RED CELL DISTRIBUTION WIDTH 13.3 % (11.7-14.4)
[2018-10-21 05:49] LABS: ALANINE AMINOTRANSFERASE 59 IU/L (0-55); ALBUMIN 3.1 g/dL (3.5-5.0); ALBUMIN/GLOBULIN RATIO 0.9 (0.8-2.0); ALKALINE PHOSPHATASE 66 IU/L (40-150); ANION GAP 9.4 mmol/L (8-16); BLOOD UREA NITROGEN 8 mg/dL (7-26); BUN/CREATININE RATIO 10 (6-25); CALCIUM 8.7 mg/dL (8.4-10.2); CARBON DIOXIDE 26 mmol/L (22-29); CHLORIDE 107 mmol/L (98-107); CREATININE, SERUM 0.77 mg/dL (0.57-1.11); EST GLOMERULAR FILTRATION RATE > 60 ML/MIN (60-); GLUCOSE 115 mg/dL (74-118); POTASSIUM 4.4 mmol/L (3.5-5.1); SODIUM 138 mmol/L (136-145)
--- NOTE | 2018-10-21 07:05 | NUR ---
Walking rounds done. Patient is awake and alertx3 without any complaints voiced. Patient is aware she is NPO for MRCP. POC discussed. Patient instructed to call for assistance as needed and verbalized understanding. Call purcell within reach.
--- NOTE | 2018-10-21 07:21 | Diagnostic Imaging Report ---
EXAMINATION: ABDOMEN ACUTE SERIES W/PA CXR INDICATION: abdominal pain COMPARISON: CT abdomen and pelvis 10/20/2018 at 0048 hours and 1154 hours FINDINGS: TUBES and LINES: Loop recorder projects over the left chest. LUNGS: Lungs are well inflated. Lungs are clear. There is no evidence of pneumonia or pulmonary edema. PLEURA: No pleural effusion or pneumothorax. HEART AND MEDIASTINUM: The cardiomediastinal silhouette is unremarkable. BONES AND SOFT TISSUES: No acute osseous lesion. Soft tissues are unremarkable. ABDOMEN: No free air under the diaphragm. Surgical clips project over the right and left upper quadrants. Sutures in the right lower quadrant. Nonobstructive bowel gas pattern. IMPRESSION: No acute thoracic abnormality. Nonobstructive bowel gas pattern. Signed by: DR. Lopez Henson MD on 10/21/2018 7:18 AM
[2018-10-21] MEDS: SUCRALFATE 1 GM TAB PO SCH ×3 (07:30→16:24)
[2018-10-21] MEDS ORDERED: PANTOPRAZOLE SOD 40 MG TABEC PO SCH (07:30)
[2018-10-21] MEDS: GABAPENTIN 300 MG CAP PO SCH ×3 (08:23→21:16)
[2018-10-21] MEDS: D5.45%NS/KCL 20MEQ 1,000 ML IV SCH ×3 (08:48→22:29)
[2018-10-21] MEDS ORDERED: GADOBENATE DIMEGLUMINE 1 ML IV ONE (10:11)
--- NOTE | 2018-10-21 11:35 | Diagnostic Imaging Report ---
EXAM: MRI MRCP [facility] DATE: 10/21/2018 7:00 AM INDICATION: Abdominal pain. COMPARISON: CT dated 10/20/2018 TECHNIQUE: Multi planar multi sequential MR images obtained of the abdomen using MRCP protocol before and after administration of 13 mL of MultiHance. FINDINGS: Loss of signal on out of phase images, representing hepatic steatosis. No focal hepatic lesion. Gallbladder is surgically absent. Common bile duct is within normal limits without evidence of dilatation or filling defect. Spleen, pancreas, and adrenal glands are unremarkable. Postsurgical changes of left partial nephrectomy. No renal mass or hydronephrosis. Visualized bowel loops are unremarkable. No evidence of bowel obstruction. No lymphadenopathy. No acute osseous abnormality. IMPRESSION: Unremarkable MRCP exam. No acute infiltrate process in the abdomen. Normal common bile duct. Hepatic steatosis. Signed by: Dr. Jasmeet Kirby MD on 10/21/2018 11:31 AM
[2018-10-21] MEDS ORDERED: GLYCOPYRROLATE INJ 1MG/ 5 ML SYR ONE (14:00)
--- NOTE | 2018-10-21 15:00 | NUR ---
Per Dr. Clara Arenas he wants to scope patient this afternoon. Dr. Clara Arenas made aware patient had clear liquids for lunch. Per MD it is okay to continue with current POC for EGD.
--- NOTE | 2018-10-21 18:30 | NUR ---
Patient off unit to Endo.
[2018-10-21] MEDS ORDERED: MIDAZOLAM HCL 2 MG/2 ML VIAL ONE (19:06)
[2018-10-21] MEDS ORDERED: FENTANYL CITRATE/PF 100MCG/2 ML INJ ONE ×2 (19:07→20:20)
--- NOTE | 2018-10-21 19:42 | NUR ---
PATIENT OFF THE UNIT FOR THE PROCEDURE.
--- NOTE | 2018-10-21 20:31 | NUR ---
RETURNED TO THE UNIT, NO DISTRESS NOTED.
[2018-10-21] MEDS: FENOFIBRATE 145 MG TAB PO SCH (21:16)
[2018-10-22] VITALS (8 sets, daily range): BP systolic 116–139; BP diastolic 57–64
[2018-10-22] MEDS: PANTOPRAZOLE 40 MG 10ML VIAL IV SCH ×2 (01:52→13:22)
--- NOTE | 2018-10-22 02:56 | NUR ---
MEDICATED EARLIER FOR COMPLAINT OF PAIN. CALL LIGHT REMAIN IN REACH.
[2018-10-22] MEDS: D5.45%NS/KCL 20MEQ 1,000 ML IV SCH (04:20)
--- NOTE | 2018-10-22 05:13 | Operative Report ---
DATE OF PROCEDURE: 10/21/2018 SURGEON: Mark Arenas MD PROCEDURE: Esophagogastroduodenoscopy with biopsies. INDICATIONS FOR EGD: Upper abdominal pain. MEDICATION: The patient was done under MAC, please see anesthesiologist's note. PROCEDURE IN DETAIL: With the patient in the left lateral decubitus position, a flexible fiberoptic Olympus gastroscope was introduced into the esophagus under direct visualization without any difficulty. The esophagus appeared to be within normal limits. The scope was then advanced with ease into her stomach. Mucosa overlying the antrum and the body revealed some patchy erythema and low-grade edema and biopsies were obtained and sent to stain for Helicobacter pylori. The pylorus was of normal contour and shape, was intubated with ease and the scope was advanced all the way to the second portion of the duodenum. Mucosa overlying the proximal second portion revealed some patchy intense erythema and moderate edema, and biopsies were obtained and sent to rule out sprue. The scope was then withdrawn back into the stomach and retroflexed and mucosa overlying the fundus and cardia appeared to be within normal limits. The scope was then straightened out, it was subsequently withdrawn. The patient tolerated the procedure well. IMPRESSION: 1. Normal esophagus. 2. Gastritis, biopsied. Biopsies sent to stain for Helicobacter pylori. 3. Duodenitis. 4. Rule out sprue. PLAN: Followup histology. Initiate full liquid diet. Continue current therapy. Mark Arenas MD [facility]/MODL /[id number] cc: Grant Vera MD
--- NOTE | 2018-10-22 07:16 | NUR ---
ROUNDS DONE, PATIENT CONTINUE RESTING IN BED, IV INFUSING, CALL LIGHT IN REACH. WILL CONTINUE TO MONITOR.
[2018-10-22] MEDS: SUCRALFATE 1 GM TAB PO SCH ×3 (07:30→16:35)
--- NOTE | 2018-10-22 07:30 | NUR ---
RN rounded the patient to check on safety, IV, and pain assessment.
[2018-10-22] MEDS: GABAPENTIN 300 MG CAP PO SCH ×3 (09:35→20:52)
[2018-10-22] MEDS: FENOFIBRATE 145 MG TAB PO SCH (20:52)
[2018-10-22 22:28] LABS: WBC,FECAL (FECAL LACTOFERRIN) NEGATIVE (NEGATIVE)
[2018-10-22] MEDS: HYDROMORPHONE 2MG/ML 2 MG/ML ML IV PRN (23:31)
--- NOTE | 2018-10-23 00:20 | NUR ---
ASSESSMENT DONE.ABD PAIN VOICED 02/22 .PAIN MEDICATION GIVEN.BED LOCKED AND IN LOWEST POSITION .PHONE AND CALLLIGHT WITHIN REACH.INSTRUCTED TO CALL FOR ASSISTANCE NEEDED.
[2018-10-23 01:18] VITALS: BP 120/58
[2018-10-23] MEDS: PANTOPRAZOLE 40 MG 10ML VIAL IV SCH ×2 (01:24→13:45)
[2018-10-23 05:08] LABS: BASOPHILS % 0.3 % (0.0-1.0); EOSINOPHILS # (AUTO) 0.3 (0.0-0.4); EOSINOPHILS % 4.9 % (0.0-6.0); HEMATOCRIT 34.4 % (34.2-44.1); HEMOGLOBIN 11.2 g/dL (12.0-16.0); LYMPHOCYTES # (AUTO) 2.3 (1.0-3.2); LYMPHOCYTES % 36.8 % (18.0-39.1); MEAN CORPUSCULAR HEMOGLOBIN 28.9 pg (28-32); MEAN CORPUSCULAR HGB CONC 32.6 g/dL (31-35); MEAN CORPUSCULAR VOLUME 88.9 fL (81-99); MONOCYTES # (AUTO) 0.5 (0.2-0.8); MONOCYTES % 7.5 % (4.4-11.3); NEUTROPHILS # (AUTO) 3.1 (2.1-6.9); NEUTROPHILS % 50.2 % (38.7-80.0); PLATELET COUNT 174 x10e3/uL (140-360); RED BLOOD COUNT 3.87 x10e6/uL (3.6-5.1); RED CELL DISTRIBUTION WIDTH 13.2 % (11.7-14.4)
[2018-10-23 05:27] LABS: ALANINE AMINOTRANSFERASE 54 IU/L (0-55); ALBUMIN 3.4 g/dL (3.5-5.0); ALBUMIN/GLOBULIN RATIO 0.9 (0.8-2.0); ALKALINE PHOSPHATASE 74 IU/L (40-150); ANION GAP 12.4 mmol/L (8-16); BLOOD UREA NITROGEN 10 mg/dL (7-26); BUN/CREATININE RATIO 12 (6-25); CALCIUM 8.9 mg/dL (8.4-10.2); CARBON DIOXIDE 27 mmol/L (22-29); CHLORIDE 105 mmol/L (98-107); CREATININE, SERUM 0.81 mg/dL (0.57-1.11); EST GLOMERULAR FILTRATION RATE > 60 ML/MIN (60-); GLUCOSE 97 mg/dL (74-118); POTASSIUM 4.4 mmol/L (3.5-5.1); SODIUM 140 mmol/L (136-145)
[2018-10-23 05:45] VITALS: BP 128/58
--- NOTE | 2018-10-23 07:00 | NUR ---
RCD PT AT BED PT IS ALERT AND ORIENTED PT RESTING ON BED NO SIGNS OF ANY DISTRESS NOTED IV PATENT BED LOW AND LOCKED CALL LIGHT IN REACH
--- NOTE | 2018-10-23 07:15 | NUR ---
REPORT GIVEN TO THE ONCOMING RN.WALKING ROUNDS DONE.STABLE CONDITION.
[2018-10-23] MEDS: SUCRALFATE 1 GM TAB PO SCH ×3 (07:30→15:17)
[2018-10-23 07:35] LABS: OCCULT BLOOD STOOL NEGATIVE (NEGATIVE)
[2018-10-23 08:09] VITALS: BP 121/58
[2018-10-23 08:41] VITALS: BP 121/58
[2018-10-23] MEDS: GABAPENTIN 300 MG CAP PO SCH ×2 (09:00→15:00)
[2018-10-23 13:02] VITALS: BP 126/61
--- NOTE | 2018-10-23 14:45 | NUR ---
Visit made by the Spiritual Care Department Pastoral Visitor, Solo Loomis. PV provided pastoral presence, communion, prayer, hospitality, and supportive listening. Pastoral Visitor informed pt/family of the scope of [facility] and availability. OMAR MOLINA [employer] Spiritual Care Department O: [phone] Pager: [phone] ([phone] number calling from)
--- NOTE | 2018-10-23 15:13 | NUR ---
A/C TO DR CIFUENTES PT CAN GO HOME IF OK WITH DR Kadeem COOK SO PAGED HIM TO GET DISCHARGE ORDER
--- NOTE | 2018-10-23 15:36 | NUR ---
DR COOK RETURNED THE CALL GOT THE DISCHARGE ORDER AND FOLLOW UP AFTER 2 WEEKS
--- NOTE | 2018-10-23 15:56 | NUR ---
PT WENT HOME IN SAFE CONDITION WITH HER
[2018-10-23 16:48] VITALS: BP 124/66
[2018-10-26 02:45] VITALS: BP 125/60
== END 2018-10-23 17:21 | disposition home or self-care (01) ==
LOC: FSED 04:21 → ERHOLD 06:36 → MED/SURG2 12:18
PROVIDERS: ADMIT Internal Medicine; ATTEND Internal Medicine
DX: K29.70 Gastritis, unspecified, without bleeding (principal); Z85.038 Personal history of other malignant neoplasm of large intestine; Z85.528 Personal history of other malignant neoplasm of kidney; K58.9 Irritable bowel syndrome, unspecified; B02.9 Zoster without complications; M54.10 Radiculopathy, site unspecified; K29.80 Duodenitis without bleeding; Z90.49 Acquired absence of other specified parts of digestive tract; Z90.5 Acquired absence of kidney; I10 Essential (primary) hypertension; I47.1 Supraventricular tachycardia; R19.7 Diarrhea, unspecified; E78.5 Hyperlipidemia, unspecified
CPT/HCPCS: 36415 ×3; 43239; 74022; 74177; 74183; 80053 ×3; 82270; 82553; 83605; 83630; 83690; 84484; 85025 ×3; 88305; 88312; 93005; 99284; C9113 ×3; G0378 ×4; J1170 ×3; J2250; J2405 ×2; J3490

== ENCOUNTER 2018-12-02 09:49 | Emergency (ER) | payer SELFPAY ==
[~2018-12-02] VITALS: Ht 147.3 cm; Wt 64.9 kg
[2018-12-02] MEDS ORDERED: SODIUM CHLORIDE 0.9% 1000ML 1,000 ML IV STA (10:07)
[2018-12-02] MEDS ORDERED: DICYCLOMINE HCL 20 MG/2 ML VIAL IM ONE (10:15)
[2018-12-02] MEDS ORDERED: SODIUM CHLORIDE 0.9% 1000ML 1,000 ML IV SCH (10:15)
--- NOTE | 2018-12-02 10:34 | Diagnostic Imaging Report ---
Exam: Abdominal film Clinical History: Abdominal pain Comparison: Abdominal radiograph 10/21/2018, CT abdomen and pelvis with contrast 10/20/2018 DISCUSSION: The bowel gas pattern shows no dilated, air-filled loops of bowel. Gas and fecal material is noted throughout the large bowel and rectum. Radiopaque suture material along the ascending colon is again noted. No mass effect or organomegaly. Pelvic phleboliths. Surgical clips project over the right upper quadrant of the abdomen compatible with prior cholecystectomy. Left paravertebral surgical clips correlate to prior partial nephrectomy as seen on comparison CT. Regional skeletal structures are intact. IMPRESSION: Nonobstructive bowel gas pattern. Signed by: Dr. Jeff Choudhury M.D. on 12/02/2018 10:31 AM
[2018-12-02 11:08] LABS: BILIRUBIN,URINE NEGATIVE (NEGATIVE); CLARITY,URINE SL CLOUDY (CLEAR); COLOR,URINE YELLOW (YELLOW); KETONES,URINE NEGATIVE (NEGATIVE); LEUKOCYTE ESTERASE ,URINE NEGATIVE (NEGATIVE); NITRITE,URINE NEGATIVE (NEGATIVE); PROTEIN,URINE DIPSTICK 3+ (NEGATIVE); URINE UROBILINOGEN 0.2 mg/dL (0.2 - 1)
[2018-12-02 11:19] LABS: BASOPHILS % 0.5 % (0.0-1.0); EOSINOPHILS # (AUTO) 0.3 (0.0-0.4); EOSINOPHILS % 4.7 % (0.0-6.0); HEMATOCRIT 38.2 % (34.2-44.1); HEMOGLOBIN 12.4 g/dL (12.0-16.0); LYMPHOCYTES # (AUTO) 2.4 (1.0-3.2); LYMPHOCYTES % 39.3 % (18.0-39.1); MEAN CORPUSCULAR HEMOGLOBIN 28.8 pg (28-32); MEAN CORPUSCULAR HGB CONC 32.5 g/dL (31-35); MEAN CORPUSCULAR VOLUME 88.6 fL (81-99); MONOCYTES # (AUTO) 0.3 (0.2-0.8); MONOCYTES % 5.5 % (4.4-11.3); NEUTROPHILS % 49.7 % (38.7-80.0); PLATELET COUNT 219 x10e3/uL (140-360); RED BLOOD COUNT 4.31 x10e6/uL (3.6-5.1); RED CELL DISTRIBUTION WIDTH 13.4 % (11.7-14.4)
[2018-12-02 11:21] LABS: EPITHELIAL CELLS,URINE FEW /LPF
[2018-12-02 11:25] LABS: ALANINE AMINOTRANSFERASE 58 IU/L (0-55); ALBUMIN 3.8 g/dL (3.5-5.0); ALBUMIN/GLOBULIN RATIO 0.8 (0.8-2.0); ALKALINE PHOSPHATASE 100 IU/L (40-150); ANION GAP 13.9 mmol/L (8-16); BLOOD UREA NITROGEN 15 mg/dL (7-26); BUN/CREATININE RATIO 19 (6-25); CALCIUM 9.7 mg/dL (8.4-10.2); CARBON DIOXIDE 24 mmol/L (22-29); CHLORIDE 106 mmol/L (98-107); CREATINE KINASE 110 IU/L (29-168); CREATININE, SERUM 0.78 mg/dL (0.57-1.11); EST GLOMERULAR FILTRATION RATE > 60 ML/MIN (60-); GLUCOSE 85 mg/dL (74-118); LIPASE 11 U/L (8-78); POTASSIUM 3.9 mmol/L (3.5-5.1); SODIUM 140 mmol/L (136-145)
[2018-12-02] MEDS ORDERED: KETOROLAC TROMETHAMINE 30 MG/ML VIAL IV ONE (12:30)
--- NOTE | 2018-12-02 13:20 | Diagnostic Imaging Report ---
EXAMINATION: CT of the abdomen and pelvis with contrast. TECHNIQUE: Spiral CT images of the abdomen and pelvis were performed from the lung bases to the lesser trochanters after the intravenous administration of 100 cc Isovue-370. Coronal and sagittal reformatted images were obtained. COMPARISON: CT abdomen and pelvis with contrast 10/20/2018 CLINICAL HISTORY:Abdominal pain DISCUSSION: ABDOMEN/PELVIS: LOWER THORAX:Subsegmental atelectasis in the dependent lower lobes. HEPATOBILIARY: As before, hepatic parenchyma is diffusely hypoattenuating compatible with steatosis. No focal hepatic lesion. No intrahepatic biliary dilatation. The gallbladder is absent. SPLEEN: No splenomegaly. PANCREAS: No focal masses or ductal dilatation. ADRENALS: No adrenal nodules. KIDNEYS/URETERS: Postsurgical changes of the upper pole of the left kidney. No gross mass lesion. No hydronephrosis. No calculi. PELVIC ORGANS/BLADDER: Urinary bladder is normal. Uterus is not identified and has presumably been removed. No adnexal mass. PERITONEUM/RETROPERITONEUM: No ascites. No pneumoperitoneum. LYMPH NODES: No pelvic sidewall, retroperitoneal, or mesenteric lymphadenopathy. VESSELS: The abdominal aorta, major branch vessels, and iliac arterial systems are patent with mild atherosclerotic calcification. No aneurysmal dilatation. Portal vein, splenic vein, and central superior mesenteric vein are patent. GI TRACT: The large bowel shows no evidence of distention or wall thickening. As before, there are scattered descending and sigmoid colon diverticula without adjacent inflammation. The appendix is not identified and has presumably been removed. The stomach is partially collapsed with prominence of the rugal folds. No small bowel dilatation to suggest obstruction. BONES AND SOFT TISSUE: No osseous destructive lesions. Postsurgical changes along the left flank. IMPRESSION: No acute intra-abdominal or pelvic CT abnormalities. Large bowel diverticulosis without evidence of diverticulitis. Hepatic steatosis. Atherosclerotic vascular disease. Signed by: Dr. Jeff Choudhury M.D. on 12/02/2018 1:17 PM
[2018-12-02] MEDS ORDERED: SODIUM CHLORIDE 0.9% 50ML 50 ML ONE (17:10)
[2018-12-02] MEDS ORDERED: IOPAMIDOL 370 MG/ML 200 ML INFUS..BTL INJ ONE (17:10)
== END 2018-12-02 14:30 | disposition home or self-care (01) ==
LOC: ER 09:49
DX: R10.84 Generalized abdominal pain (principal); E78.5 Hyperlipidemia, unspecified; F41.9 Anxiety disorder, unspecified; G62.9 Polyneuropathy, unspecified; D64.9 Anemia, unspecified; Z85.038 Personal history of other malignant neoplasm of large intestine; Z85.528 Personal history of other malignant neoplasm of kidney
CPT/HCPCS: 36415; 74018; 74177; 80053; 81001; 82550; 82553; 83690; 84484; 85025; 99284; J0500; J1885; J7030; Q9967

== ENCOUNTER 2019-02-22 04:24 | Emergency (ER) | payer SELFPAY ==
[~2019-02-22] VITALS: Ht 147.3 cm; Wt 64.9 kg
[2019-02-22 05:23] LABS: BASOPHILS % 0.5 % (0.0-1.0); EOSINOPHILS # (AUTO) 0.2 (0.0-0.4); EOSINOPHILS % 3.8 % (0.0-6.0); HEMATOCRIT 39.2 % (34.2-44.1); HEMOGLOBIN 12.9 g/dL (12.0-16.0); INR 0.92; LYMPHOCYTES # (AUTO) 2.6 (1.0-3.2); LYMPHOCYTES % 40.9 % (18.0-39.1); MEAN CORPUSCULAR HEMOGLOBIN 29.2 pg (28-32); MEAN CORPUSCULAR HGB CONC 32.9 g/dL (31-35); MEAN CORPUSCULAR VOLUME 88.7 fL (81-99); MONOCYTES # (AUTO) 0.5 (0.2-0.8); MONOCYTES % 7.2 % (4.4-11.3); NEUTROPHILS % 47.3 % (38.7-80.0); PLATELET COUNT 202 x10e3/uL (140-360); PROTHROMBIN TIME 12.9 seconds (11.9-14.5); RED BLOOD COUNT 4.42 x10e6/uL (3.6-5.1); RED CELL DISTRIBUTION WIDTH 13.8 % (11.7-14.4)
[2019-02-22 05:24] LABS: PARTIAL THROMBOPLASTIN TIME 26.1 seconds (23.8-35.5)
[2019-02-22 05:33] LABS: ALANINE AMINOTRANSFERASE 61 IU/L (0-55); ALBUMIN 3.6 g/dL (3.5-5.0); ALBUMIN/GLOBULIN RATIO 0.8 (0.8-2.0); ALKALINE PHOSPHATASE 97 IU/L (40-150); BLOOD UREA NITROGEN 16 mg/dL (7-26); BUN/CREATININE RATIO 22 (6-25); CALCIUM 9.5 mg/dL (8.4-10.2); CARBON DIOXIDE 25 mmol/L (22-29); CHLORIDE 104 mmol/L (98-107); CREATINE KINASE 80 IU/L (29-168); CREATININE, SERUM 0.73 mg/dL (0.57-1.11); EST GLOMERULAR FILTRATION RATE > 60 ML/MIN (60-); GLUCOSE 99 mg/dL (74-118); SODIUM 138 mmol/L (136-145)
--- NOTE | 2019-02-22 05:38 | Diagnostic Imaging Report ---
EXAMINATION: CHEST SINGLE (PORTABLE) INDICATION: chest pain COMPARISON: Abdominal CT 10/20/2018; chest radiograph 06/02/2018 FINDINGS: AP view TUBES and LINES: None. LUNGS: Lungs are well inflated. Lungs are clear. There is no evidence of pneumonia or pulmonary edema. PLEURA: No pleural effusion or pneumothorax. HEART AND MEDIASTINUM: The cardiomediastinal silhouette is unremarkable. BONES AND SOFT TISSUES: No acute osseous lesion. Cardiac loop recorder projects over the left lower chest. UPPER ABDOMEN: No free air under the diaphragm. Surgical clips of the right upper quadrant IMPRESSION: No acute thoracic abnormality. Signed by: Gurwinder Doty DO on 02/22/2019 5:34 AM
[2019-02-22 05:58] VITALS: BP 122/78
== END 2019-02-22 06:08 | disposition home or self-care (01) ==
LOC: ER 04:24
DX: R07.89 Other chest pain (principal); E78.5 Hyperlipidemia, unspecified; K76.9 Liver disease, unspecified; F41.9 Anxiety disorder, unspecified
CPT/HCPCS: 36415; 71045; 80053; 82550; 82553; 84484; 85025; 85610; 85730; 93005; 99284

== ENCOUNTER 2019-04-23 11:42 | Emergency (ER) | payer OTHER ==
[~2019-04-23] VITALS: Ht 147.3 cm; Wt 64.9 kg
[2019-04-23] MEDS ORDERED: KETOROLAC TROMETHAMINE 30 MG/ML VIAL IV STA (12:10)
[2019-04-23] MEDS ORDERED: KETOROLAC TROMETHAMINE 30 MG/ML VIAL ONE (12:18)
--- NOTE | 2019-04-23 12:21 | NUR ---
WARM BLANKET GIVEN
--- NOTE | 2019-04-23 13:37 | Diagnostic Imaging Report ---
EXAMINATION: CT of the abdomen and pelvis without contrast. TECHNIQUE: Spiral CT images of the abdomen and pelvis were performed from the lung bases to the lesser trochanters without administration of intravenous contrast. Coronal and sagittal reformatted images were obtained. Renal stone protocol was performed. COMPARISON: CT abdomen/pelvis 12/02/2018. CLINICAL HISTORY:Bilateral flank pain. DISCUSSION: ABDOMEN/PELVIS: LOWER THORAX: . Patchy dependent atelectasis. HEPATOBILIARY:No evidence of focal hepatic lesion. No intrahepatic biliary dilatation. Status post cholecystectomy. No evidence of biliary dilatation. SPLEEN: No splenomegaly. PANCREAS: No evidence of focal masses or ductal dilatation. ADRENALS: No adrenal nodules. KIDNEYS/URETERS: Postsurgical changes of the upper pole of the left kidney. No definite mass. No evidence of hydronephrosis or stone. PELVIC ORGANS/BLADDER: Urinary bladder is normal. Status post hysterectomy. PERITONEUM/RETROPERITONEUM: No ascites. No pneumoperitoneum. LYMPH NODES: No evidence of lymphadenopathy. VESSELS: Scattered mild atherosclerotic calcifications. GI TRACT: Colonic diverticulosis without CT evidence of diverticulitis. Status post appendectomy. No evidence of bowel obstruction. BONES AND SOFT TISSUE: No acute osseous abnormality. Postsurgical changes along the left flank. IMPRESSION: No acute CT abnormality in the abdomen or pelvis. No evidence of nephrolithiasis. Signed by: Dr. Anabela Sawant MD on 04/23/2019 1:34 PM
== END 2019-04-23 13:56 | disposition home or self-care (01) ==
LOC: FSED 11:42
DX: R10.11 Right upper quadrant pain (principal); R10.12 Left upper quadrant pain; R10.13 Epigastric pain; Z85.038 Personal history of other malignant neoplasm of large intestine; Z85.53 Personal history of malignant neoplasm of renal pelvis
CPT/HCPCS: 74176; 99284; J1885

== ENCOUNTER 2019-05-20 17:11 | Observation (INO) | payer OTHER ==
[~2019-05-20] VITALS: Ht 147.3 cm; Wt 62.9 kg
[2019-05-20] MEDS ORDERED: ALBUTEROL/IPRATROPIUM 3 ML NEB NEB ONE ×2 (17:45→19:15)
[2019-05-20] MEDS ORDERED: ALBUTEROL/IPRATROPIUM 3 ML NEB ONE ×2 (18:05→19:21)
[2019-05-20] MEDS ORDERED: IOPAMIDOL 370 MG/ML 200 ML INFUS..BTL INJ ONE (18:17)
[2019-05-20] MEDS ORDERED: SODIUM CHLORIDE 0.9% 50ML 50 ML ONE (18:17)
--- NOTE | 2019-05-20 18:52 | NUR ---
report to AVELINA Ahuja
[2019-05-20] MEDS ORDERED: MORPHINE SULFATE INJ 4 MG/ML INJ 1ML IV PRN (19:15)
[2019-05-20] MEDS ORDERED: KETOROLAC TROMETHAMINE 30 MG/ML VIAL IV STA (19:20)
[2019-05-20] MEDS ORDERED: KETOROLAC TROMETHAMINE 30 MG/ML VIAL ONE (19:20)
--- NOTE | 2019-05-20 19:29 | Diagnostic Imaging Report ---
EXAM: CT Chest WITH contrast (PE Protocol) INDICATION: Short of breath COMPARISON: None TECHNIQUE: Chest was scanned utilizing a multidetector helical scanner from the lung apex through the level of the diaphragm after administration of IV contrast. Thin section reconstructions were obtained with special concentration on the pulmonary arteries. Coronal and sagittal reformations were obtained. Pulmonary embolism protocol was performed. IV CONTRAST: 100 mL of Isovue 370 COMPLICATIONS: None RADIATION DOSE: Total DLP: 333 mGy*cm Estimated effective dose: (DLP x 0.014 x size factor) mSv CTDIvol has been reviewed. It is below the limits set by the Radiation Protocol Committee (RPC). Dose modulation, iterative reconstruction, and/or weight based adjustment of the mA/kV was utilized to reduce the radiation dose to as low as reasonably achievable. FINDINGS: LINES/ TUBES: None. LUNGS AND AIRWAYS: No filling defect is identified within the pulmonary arteries to the segmental level. Mild bibasilar atelectasis. Elevated right hemidiaphragm with mild low right lung volume. Airways are normal. PLEURA: The pleural spaces are clear. HEART AND MEDIASTINUM: Focal subcentimeter calcific nodule in the right thyroid lobe. No mediastinal, hilar or axillary lymphadenopathy. The heart is normal in size. There is no pericardial effusion. . The main pulmonary artery and thoracic aorta are nondilated. UPPER ABDOMEN: Cholecystectomy clips. BONES: Bone island in the right humeral head. The visualized bony thorax is within normal limits. SOFT TISSUES: Loop recorder in the left chest soft tissues.. IMPRESSION: No pulmonary emboli. Calcific nodule in the right thyroid lobe. Recommend nonemergent thyroid ultrasound for further evaluation. Signed by: Gurwinder Doty DO on 05/20/2019 7:26 PM
[2019-05-20] MEDS ORDERED: ONDANSETRON HCL INJ 2MG/ML 2ML 2 MG/ML VIAL IV PRN (20:00)
[2019-05-20] MEDS ORDERED: ASPIRIN 81 MG CHEW TAB PO ONE (20:00)
[2019-05-20] MEDS ORDERED: ACETAMINOPHEN/CODEINE 300MG - 30MG TAB PO PRN (20:45)
[2019-05-20 21:53] VITALS: BP 167/70
--- NOTE | 2019-05-20 22:00 | NUR ---
received pt from [facility] to room 211, AAOx3, skin intact, no resp distress, c/o of pain to abdomen 12/23, tylenol #3 given, tele #22 on pt, 20 g IV to left AC, pt can ambulate by self with steady gait, bed in lowest and locked position with call light in reach
[2019-05-20 23:42] VITALS: BP 167/70
[2019-05-20 23:47] VITALS: BP 167/70
[2019-05-21] VITALS (9 sets, daily range): BP systolic 125–157; BP diastolic 77–99
--- NOTE | 2019-05-21 07:00 | NUR ---
BEDSIDE SHIFT REPORT FROM CHILD WELFARE COUNSELOR RN. PT DENIES NEEDS AT THIS TIME.
[2019-05-21] MEDS ORDERED: ACETAMINOPHEN/CODEINE 300MG - 30MG TAB PO PRN (09:15)
[2019-05-21 10:05] LABS: CREATINE KINASE 49 IU/L (29-168)
--- NOTE | 2019-05-21 12:01 | History and Physical ---
CHIEF COMPLAINT: Trouble breathing, especially on talking associated with cough for last few days. HISTORY OF PRESENT MEDICAL ILLNESS: A 54-year-old pleasant female with past medical history of multiple medical problems, was admitted at [facility] last evening with above complaints. As per the patient since last few days, she noticed that she had trouble catching breath especially while talking and all associated with dry cough and hence, the patient came to ER last evening. In the emergency room, the patient was seen by emergency room doctor and was admitted to rule out any cardiac issues. At present, the patient is lying comfortably in bed. No apparent distress. No chest pain. No shortness of breath. At present, no nausea, vomiting, or diarrhea. No abdominal pain. No loss of consciousness. No palpitations. No headaches. No hematemesis. No melena. No hematuria or dysuria. No fever. No witnessed seizures. PAST MEDICAL HISTORY: 1. Cervical and lumbar radiculopathy. 2. History of CA colon and CA kidney in 2018. 3. Chronic pain. MEDICATIONS: 1. Tylenol No. 3, one tablet p.o. q.4 hours p.r.n.. 2. Gabapentin, unknown dose. ALLERGIES: MORPHINE. PAST SURGICAL HISTORY: 1. Partial colectomy secondary to CA colon in 2018. 2. Left partial nephrectomy in 2018 for CA renal. 3. Gallbladder surgery. 4. Appendectomy. 5. Hysterectomy. SOCIAL HISTORY: No smoking. No alcohol. No illicit drug use. Lives with family. FAMILY HISTORY: Noncontributory. REVIEW OF SYSTEMS: As per HPI. PHYSICAL EXAMINATION: GENERAL: The patient is alert, awake, and oriented x3, in no apparent distress, lying in bed. VITAL SIGNS: Temperature is 97, pulse is 62 per minute, respiratory rate is 16 per minute, blood pressure is 136/80, and saturation is 97% on room air. SKIN: No cyanosis. No icterus. No pallor. HEENT: Normocephalic and atraumatic. PERRLA plus. NECK: Soft, supple. No JVD. No carotid bruits. No lymphadenopathy. LUNGS: Air entry bilaterally equal. HEART: S1 and S2 present. No murmur, gallop, or rub. ABDOMEN: Soft and nontender. Bowel sounds plus. CUPOLA OPERATOR: Alert, awake, and oriented x3. No focal deficits. EXTREMITIES: No cyanosis. No clubbing. No edema. Peripheral pulses palpable. No calf pain. LABORATORY DATA: Labs on admission to ER; sodium 145, potassium 3.5, chloride 106, bicarb 24, glucose 109, BUN 14, and creatinine 0.7. LFTs noted. White count 6.1, hemoglobin 12.3, hematocrit 36.8, and platelets 218. Cardiac enzymes x1 negative. BNP 31.2. EKG shows normal sinus rhythm, nonspecific T-wave abnormality in anterolateral leads. Echo preliminary shows ejection fraction of 45% to 50%. ASSESSMENT: 1. Atypical dyspnea with coughing, could be sinusitis or bronchitis. 2. Abnormal EKG. PLAN: Admit the patient to [facility]. Cardiology consultation on Dr. Peck. We will give a round of Omnicef 300 mg p.o. b.i.d. for possible sinusitis. Serial cardiac enzymes and serial EKG. Further care and treatment as per clinical course of the patient in the hospital. CT scan with PE protocol was negative on admission. MD NANCY Anguiano/MODL /[id number]
[2019-05-21 12:57] LABS: THYROID STIMULATING HORMONE 3.405 uIU/mL (0.350-4.940)
[2019-05-21 15:54] LABS: CREATINE KINASE 51 IU/L (29-168)
--- NOTE | 2019-05-21 15:57 | Consultation ---
DATE OF CONSULTATION: 05/21/2019 Cardiac Consultation. REASON FOR CONSULTATION: Shortness of breath and vague chest pain. HISTORY: A 54-year-old lady who is known with multiple medical health problems, several admissions to this institution. Cardiac delgado, there is no history of prior myocardial infarction. There is prior history of near syncope and the patient had a loop recorder implanted more than three years ago. The patient came to this institution because for the last few days, she is unable to catch her breath while talking and having cough. There is no orthopnea. There is no paroxysmal nocturnal dyspnea. There is no pleuritic or pericarditic component of chest pain. There are no symptoms to suggest typical angina. There is no recent travel. There is no history of hormone use. There is no swelling of the lower extremities. REVIEW OF SYSTEMS: Extensive done to all systems, will be summarized for clarity. GENERAL: No fever. No chills. HEENT: No vision problem. No hearing problem. PULMONARY AND CARDIAC: As per acute illness. GI: Bloating, indigestion. : No hematuria. No dysuria. MUSCULOSKELETAL: Back pain, knee pain, cervical pain, and radiculopathy to both lower extremity tingling and numbness of the lower extremities. ENDOCRINE: No history of diabetes mellitus. No heat or cold intolerance. HEMATOLOGY: No history of bruising or easy bleeding. The rest of the review of system are unremarkable. HOME MEDICATIONS: Gabapentin 300 mg one tablet daily and sometimes she takes two tablets at night and Tylenol No. 3 p.r.n. PAST MEDICAL HISTORY: 1. Colon cancer status post partial colectomy. 2. Left partial nephrectomy for renal cancer. 3. Appendectomy. 4. Hysterectomy. 5. Cholecystectomy. 6. Chronic back pain. 7. Cervical spine pain. SOCIAL HISTORY: She is divorcee. She is nonsmoker and non-alcohol drinker. She works in [employer]. FAMILY HISTORY: Father at age 82. He is alive. He had past history of CVA and congestive heart failure. Mother in her 80s. She is very healthy. Four healthy brothers, three sister, one sister diabetic, one son who is also diabetic. One daughter was healthy. PHYSICAL EXAMINATION: VITAL SIGNS: Height of 4 feet 10 inches, weight of 138 pounds, blood pressure 130/80, heart rate of 50, respiratory rate of 18, afebrile. HEENT: Pupils are reactive. NECK: No elevation of jugular venous pulsation. No bruit. CHEST: Clear to auscultation and percussion. HEART: PMI 5th left intercostal space. Normal first and second heart sounds. ABDOMEN: Soft with good bowel sounds. No organomegaly. No abdominal bruit. EXTREMITIES: No cyanosis, no clubbing, no edema. No signs of deep venous thrombosis. NEUROLOGIC: Awake, alert, oriented. No motor or sensory deficits. LABORATORY DATA: Sodium of 145, potassium of 3.4, BUN of 14, creatinine of 0.7, and glucose of 109. Two sets of cardiac enzymes are normal. BNP is normal. EKG showing normal sinus rhythm, nonspecific ST changes. CT PE protocol was negative on admission. IMPRESSION AND PLAN: 1. Shortness of breath, atypical chest pain. 2. Chronic back problem and cervical spine problems. 3. Survivor of colon cancer and kidney cancer. 4. No symptoms to suggest PE. 5. Two sets of cardiac enzymes are negative. Cardiac delgado, we will proceed with cardiac stress test. We will observe the patient's progression with you. Pending on her course, further steps to be done. MD CARRIE Cruz/RACHELL /[id number]
--- NOTE | 2019-05-21 16:06 | Operative Report ---
DATE OF PROCEDURE: SURGEON: Laura Peck MD TITLE OF THE PROCEDURE: Cardiac stress test. TECHNICAL DETAILS: The target heart rate is at 140 per minute. RESULTS: 1. The patient exercised for a total of 6 minute and 35 seconds. 2. Heart rate increased from 60 to 140 per minute. 3. Shortness of breath. No chest pain. 4. Blood pressure increased from 125/68 to 151/105. 5. ST-segment depression, greater than 1 millivolt noted in leads 2, 3, AVF, and V6. IMPRESSION: Equivocal stress test with no chest pain, only shortness of breath. EKG changes noted in 2, 3, AVF and V6. Clinical correlation recommended. The patient not having typical angina. Chest pain can be observed on medication and re-evaluate depending on her symptoms. All this discussed and explained to the patient at length. Questions are answered. MD CARRIE Cruz/MODL /[id number]
[2019-05-21 16:28] LABS: CHOL/HDL RATIO 4.3 (3.0-3.6)
--- NOTE | 2019-05-21 17:29 | NUR ---
CLEARED BY DR. STACY TO DISCHARGE HOME. Addendum: 05/21/19 at 1946 by Boubacar Jon RN FOLLOW UP IN HIS OFFICE IN 7 TO 10 DAYS.
[2019-05-21] MEDS: CEFDINIR 300 MG CAP PO SCH (17:46)
[2019-05-22 01:11] VITALS: BP 133/84
[2019-05-22 05:25] VITALS: BP 113/79
[2019-05-22 06:02] LABS: BASOPHILS % 0.3 % (0.0-1.0); EOSINOPHILS # (AUTO) 0.3 (0.0-0.4); EOSINOPHILS % 5.1 % (0.0-6.0); HEMATOCRIT 37.5 % (34.2-44.1); HEMOGLOBIN 12.4 g/dL (12.0-16.0); LYMPHOCYTES # (AUTO) 2.3 (1.0-3.2); LYMPHOCYTES % 37.9 % (18.0-39.1); MEAN CORPUSCULAR HEMOGLOBIN 29.1 pg (28-32); MEAN CORPUSCULAR HGB CONC 33.1 g/dL (31-35); MONOCYTES # (AUTO) 0.4 (0.2-0.8); MONOCYTES % 6.9 % (4.4-11.3); NEUTROPHILS % 49.6 % (38.7-80.0); PLATELET COUNT 182 x10e3/uL (140-360); RED BLOOD COUNT 4.26 x10e6/uL (3.6-5.1); RED CELL DISTRIBUTION WIDTH 13.6 % (11.7-14.4)
[2019-05-22 06:25] LABS: ALANINE AMINOTRANSFERASE 65 IU/L (0-55); ALBUMIN 3.2 g/dL (3.5-5.0); ALBUMIN/GLOBULIN RATIO 0.8 (0.8-2.0); ALKALINE PHOSPHATASE 79 IU/L (40-150); ANION GAP 13.2 mmol/L (8-16); BLOOD UREA NITROGEN 14 mg/dL (7-26); BUN/CREATININE RATIO 18 (6-25); CALCIUM 9.2 mg/dL (8.4-10.2); CARBON DIOXIDE 25 mmol/L (22-29); CHLORIDE 104 mmol/L (98-107); CREATININE, SERUM 0.76 mg/dL (0.57-1.11); EST GLOMERULAR FILTRATION RATE > 60 ML/MIN (60-); GLUCOSE 93 mg/dL (74-118); POTASSIUM 4.2 mmol/L (3.5-5.1); SODIUM 138 mmol/L (136-145)
[2019-05-22 07:07] LABS: CREATINE KINASE 49 IU/L (29-168)
[2019-05-22 08:00] VITALS: BP 117/74
[2019-05-22 08:06] VITALS: BP 117/74
[2019-05-22] MEDS: CEFDINIR 300 MG CAP PO SCH (08:17)
[2019-05-22] MEDS ORDERED: MEDROL4 MG PO (10:42)
[2019-05-22] MEDS ORDERED: PROAIR HFA INH8.5 GM INH (10:43)
[2019-05-22] MEDS ORDERED: BROMFED DM COU118 ML PO (10:44)
[2019-05-22] MEDS ORDERED: ONDANSETRON HCL 4 MG ORAL DISINTEGRATING TAB PO PRN (11:00)
[2019-05-22 12:00] VITALS: BP 136/76
--- NOTE | 2019-05-22 12:55 | NUR ---
Left AC IV discontinued. No signs of infiltration noted. 2x2 gauze and tape placed. Taken via wheelchair to personal car by PCT. Accompanied by mother. AAOX4 to time, person, place, situation. Respirations even and unlabored. Discharge instructions, rx, and all personal belongings taken with patient.
--- NOTE | 2019-05-22 14:37 | Discharge Summary ---
This is a 54-year-old female patient of mine, presented with a complaint of shortness of breath and throat tightness and pain. ADMITTING IMPRESSION AND DIAGNOSES: Atypical angina, chest pain, shortness of breath, bronchitis and the patient has a history of colon and kidney cancer and for that the patient had nephrectomy that was done. HOSPITAL COURSE SUMMARY: The patient was admitted with above diagnosis. The patient had a telemetry monitoring and color television console monitor done. The patient had a Cardiology evaluation that was done by Dr. Peck. The patient had a stress test done, which was negative. Now upon stabilization, the patient will be discharged home with a Medrol Dosepak, ProAir and Bromfed. This patient has also finding of a right thyroid nodule on the CT scan of the chest. The patient will be needing a thyroid ultrasound and further checkup for that thyroid nodules. The patient was advised to follow up with her oncologist for the thyroid nodule and thyroid ultrasound as outpatient. MD EDUARDO Cortez/RACHELL /[id number]
== END 2019-05-22 14:44 | disposition home or self-care (01) ==
LOC: FSED 17:11 → ERHOLD 19:49 → MED/SURG2 21:45
PROVIDERS: ADMIT Internal Medicine; ATTEND Internal Medicine
DX: J40 Bronchitis, not specified as acute or chronic (principal); R07.89 Other chest pain; Z85.038 Personal history of other malignant neoplasm of large intestine; Z85.528 Personal history of other malignant neoplasm of kidney; Z90.5 Acquired absence of kidney; Z90.49 Acquired absence of other specified parts of digestive tract; R94.31 Abnormal electrocardiogram [ECG] [EKG]; M54.2 Cervicalgia; M54.9 Dorsalgia, unspecified; G89.29 Other chronic pain; E04.1 Nontoxic single thyroid nodule; Z83.3 Family history of diabetes mellitus; Z82.49 Family history of ischemic heart disease and other diseases of the circulatory system; Z82.3 Family history of stroke; M54.10 Radiculopathy, site unspecified
CPT/HCPCS: 36415 ×2; 71260; 80053 ×2; 80061; 82550 ×2; 82553 ×2; 83880 ×2; 84443; 84484 ×3; 85025 ×2; 93005 ×2; 93017; 93306; 99284; G0378 ×3; J1885; J2405; Q9967

== ENCOUNTER → 2019-06-19 | Outpatient (CLI) | payer OTHER ==
[~2019-06-19] MED LIST changes: +BROMFED DM COU118 ML PO; +MEDROL4 MG PO; +PROAIR HFA INH8.5 GM INH
--- NOTE | 2019-06-19 21:34 | Diagnostic Imaging Report ---
Bone Scan, delayed phase INDICATION: 54 F with history of renal and colon cancer in 2018; recent diagnosis of thyroid cancer. COMPARISON: No prior bone scan; CT chest 05/20/2019; CT abdo/pelvis 04/23/2019 REPORT: Approximately 3 hours following intravenous administration of 27.5 mCi of Tc-99m MDP, delayed total body images in the anterior and posterior projections and selected spot images were obtained. Distribution of tracer activity appears physiologic throughout the skeletal system. No abnormal accumulation of tracer is seen in the soft tissues or urinary tract. The left kidney is decreased in size. IMPRESSION: No scan evidence of metastatic bone disease. Signed by: Dr. Meggan Tejada M.D. on 06/19/2019 9:30 PM
== END ==
LOC: NM 10:23
PROVIDERS: ATTEND Internal Medicine
DX: C18.0 Malignant neoplasm of cecum (principal); C64.2 Malignant neoplasm of left kidney, except renal pelvis; C73 Malignant neoplasm of thyroid gland; M85.80 Other specified disorders of bone density and structure, unspecified site; R10.84 Generalized abdominal pain; E04.1 Nontoxic single thyroid nodule
CPT/HCPCS: 78306; A9503

== ENCOUNTER 2019-12-04 07:18 | Emergency (ER) | payer SELFPAY ==
[~2019-12-04] VITALS: Ht 147.3 cm; Wt 62.6 kg
[2019-12-04] MEDS ORDERED: SODIUM CHLORIDE 0.9% 1000ML 1,000 ML IV STA (07:33)
[2019-12-04] MEDS ORDERED: KETOROLAC TROMETHAMINE 30 MG/ML VIAL IV STA ×2 (07:39)
[2019-12-04 07:52] LABS: BASOPHILS % 0.3 % (0.0-1.0); EOSINOPHILS # (AUTO) 0.2 (0.0-0.4); EOSINOPHILS % 3.3 % (0.0-6.0); HEMATOCRIT 38.2 % (34.2-44.1); HEMOGLOBIN 12.6 g/dL (12.0-16.0); LYMPHOCYTES # (AUTO) 2.8 (1.0-3.2); LYMPHOCYTES % 37.9 % (18.0-39.1); MEAN CORPUSCULAR HEMOGLOBIN 28.8 pg (28-32); MEAN CORPUSCULAR VOLUME 87.2 fL (81-99); MONOCYTES # (AUTO) 0.5 (0.2-0.8); MONOCYTES % 6.9 % (4.4-11.3); NEUTROPHILS # (AUTO) 3.8 (2.1-6.9); NEUTROPHILS % 51.3 % (38.7-80.0); PLATELET COUNT 201 x10e3/uL (140-360); RED BLOOD COUNT 4.38 x10e6/uL (3.6-5.1); RED CELL DISTRIBUTION WIDTH 13.2 % (11.7-14.4)
[2019-12-04 08:16] LABS: BILIRUBIN,URINE NEGATIVE (NEGATIVE); CLARITY,URINE CLEAR (CLEAR); COLOR,URINE YELLOW (YELLOW); KETONES,URINE NEGATIVE (NEGATIVE); LEUKOCYTE ESTERASE ,URINE NEGATIVE (NEGATIVE); NITRITE,URINE NEGATIVE (NEGATIVE); PROTEIN,URINE DIPSTICK NEGATIVE (NEGATIVE); URINE UROBILINOGEN 0.2 mg/dL (0.2 - 1)
[2019-12-04 08:18] LABS: ALANINE AMINOTRANSFERASE 80 IU/L (0-55); ALBUMIN 3.3 g/dL (3.5-5.0); ALBUMIN/GLOBULIN RATIO 0.8 (0.8-2.0); ALKALINE PHOSPHATASE 83 IU/L (40-150); BLOOD UREA NITROGEN 19 mg/dL (7-26); BUN/CREATININE RATIO 27 (6-25); CALCIUM 9.3 mg/dL (8.4-10.2); CARBON DIOXIDE 27 mmol/L (22-29); CHLORIDE 106 mmol/L (98-107); CREATININE, SERUM 0.71 mg/dL (0.57-1.11); EST GLOMERULAR FILTRATION RATE > 60 ML/MIN (60-); GLUCOSE 92 mg/dL (74-118); SODIUM 140 mmol/L (136-145)
[2019-12-04 08:30] LABS: WBC,URINE (MAN) 0-5 /HPF (0-5)
[2019-12-04 08:32] LABS: BACTERIA,URINE FEW /HPF; EPITHELIAL CELLS,URINE FEW /LPF
--- NOTE | 2019-12-04 09:52 | Diagnostic Imaging Report ---
CT ABDOMEN WITH CONTRAST, CT PELVIS WITH CONTRAST HISTORY: Bilateral flank pain, history of partial left nephrectomy COMPARISON: Noncontrast CT of the abdomen and pelvis from 04/23/2019 TECHNIQUE: CT of the abdomen and pelvis was performed with intravenous contrast. The examination was performed to conform to our departmental dose optimization program which includes automated exposure control, adjustment of the mA and/or kV according to patient size and/or use of iterative reconstruction techniques. FINDINGS: Lung bases clear. No pleural or pericardial effusions. The gallbladder is surgically absent, with surgical clips in the gallbladder fossa. No significant bile duct dilatation is visualized. No CT abnormalities are visualized in the liver, spleen, pancreas, adrenal glands, or right kidney. There are postoperative changes in these upper pole of the left kidneys consistent with history of prior partial left fracture may. No recurrent tumor is seen with certainty. No hydronephrosis or hydroureter. No ureteral calculi are visualized. Bladder unremarkable. No lymphadenopathy is visualized in the abdomen or pelvis. Uterus is absent. No adnexal mass is identified. No dilated loops of large or small intestine. Several diverticula are noted in the descending colon and sigmoid colon, without specific CT evidence of acute diverticulitis. No free air or abscess are identified. There are postoperative changes in the cecum, possibly representing related to prior appendectomy. The appendix is not directly visualized. There are no inflammatory changes adjacent to the cecum. No gastric abnormalities are identified. No abdominal aortic aneurysm. No fracture or destructive bone lesions. There are degenerative changes in the lower lumbar spine. There is mild arthrosis of the sacroiliac joints. IMPRESSION: 1. No acute CT abnormalities are identified in the abdomen or pelvis. 2. Multiple diverticula in the descending colon and sigmoid colon. No specific CT evidence of acute diverticulitis. 3. Prior cholecystectomy. No significant bile duct dilatation. 4. Prior hysterectomy. 5. Question prior appendectomy. 6. Prior partial left nephrectomy. No specific CT evidence of recurrent tumor. Signed by: Jeff Ward MD on 12/04/2019 9:49 AM
[2019-12-04] MEDS ORDERED: IOPAMIDOL 370 MG/ML 200 ML INFUS..BTL INJ ONE (09:56)
[2019-12-04] MEDS ORDERED: SODIUM CHLORIDE 0.9% 50ML 50 ML ONE (09:56)
[2019-12-04 10:01] VITALS: BP 142/69
== END 2019-12-04 10:11 | disposition home or self-care (01) ==
LOC: ER 07:18
DX: M54.5 Low back pain (principal); R10.9 Unspecified abdominal pain; E78.5 Hyperlipidemia, unspecified; Z85.528 Personal history of other malignant neoplasm of kidney; Z85.038 Personal history of other malignant neoplasm of large intestine; Z85.850 Personal history of malignant neoplasm of thyroid
CPT/HCPCS: 36415; 74177; 80053; 81001; 85025; 87086; 99284; J1885; J7030; Q9967

== ENCOUNTER 2020-01-13 23:11 | Emergency (ER) | payer SELFPAY ==
[~2020-01-13] VITALS: Ht 147.3 cm; Wt 65.8 kg
--- OUTSIDE RECORDS SUMMARY | 2020-01-13 23:15 | XMS REPORT | Clinical Summary ---
Author Author [facility] Address Unknown Phone Unavailable Care Team Providers Care Supervisor Type Photography Name Role Phone Vera, Grant Jarrod PCP Allergies Comments Active Allergy Reactions Severity Noted Date Morphine Hives High 07/11/2019 Medications End Date Status Medication Sig Dispensed Refills Start Date Active gabapentin (NEURONTIN) Take 300 mg 0 300 MG capsule by mouth 2 (two) times daily. Active acetaminophen-codeine Take 1 tablet 0 (TYLENOL #3) 300-30 mg by mouth per tablet every 4 (four) hours as needed for Pain. Active calcitriol (ROCALTROL) Take 0.25 mcg 0 0.25 MCG capsule by mouth 2 (two) times daily. 07/11/2019 Discontinued calcium carbonate Take by 0 (CALCIUM 500 ORAL) mouth. Active Problems Problem Noted Date Thyroid cancer 07/11/2019 Encounters Care Team Description Date Type Specialty Fareed Vang MD Malignant neoplasm of thyroid gland (HCC ) (Primary Dx) 07/17/2019 Orders Only Lab Lesa Luna MD 07/11/2019 Anesthesia Event Fareed Vang MD THYROIDECTOMY,TOTAL 07/11/2019 Surgery Fareed Vang MD 07/11/2019 [facility] General Internal Me dicine - Encounter 07/12/2019 Kelvin Wells MD 07/05/2019 Hospital Pre-Admission Testi ng Encounter after 01/12/2019 Social History Date Tobacco Use Types Packs/Day Years Used Never Smoker Smokeless Tobacco: Never Used Alcohol Use Drinks/Week oz/Week Comments No Alcohol Habits Answer Date Recorded How often do you have a drink containing alcohol? Never 07/05/2019 How many drinks containing alcohol do you have on No t asked a typical day when you are drinking? How often do you have six or more drinks on one Not asked occasion? Sex Assigned at Date Recorded Not on file Industry Job Start Date Occupation Not on file Not on file Not on file Travel End Travel History Travel Start No recent travel history available. Last Filed Vital Signs Time Taken Vital Sign Reading 07/12/2019 8:[address] [employer] TECHNICIAN Blood Pressure 140/67 07/12/2019 8:[address] [employer] TECHNICIAN Pulse 52 07/12/2019 8:[address] [employer] TECHNICIAN Temperature 36.1 C (97 F) 07/12/2019 8:[address] [employer] TECHNICIAN Respiratory Rate 18 07/12/2019 8:[address] [employer] TECHNICIAN Oxygen Saturation 98% - Inhaled Oxygen - Concentration 07/11/2019 6:[address] [employer] TECHNICIAN Weight 63.2 kg (139 lb 4.8 oz) 07/11/2019 6:[address] [employer] TECHNICIAN Height 147.3 cm (4' 10") 07/11/2019 6:[address] [employer] TECHNICIAN Body Mass Index 29.11 Plan of Treatment Not on file Procedures Comments Procedure Name Priority Date/Time Associated Diag nosis CALCIUM Routine 07/17/2019 Malignant neopl asm of 11:[address] [employer] TECHNICIAN thyroid gland (HCC) CALCIUM, IONIZED Routine 07/12/2019 8:[address] [employer]IO TECHNICIAN CALCIUM, IONIZED Routine 07/11/2019 9:[address] [employer]IO TECHNICIAN PTH, INTACT ALISIA 07/11/2019 11:[address]IO TECHNICIAN CALCIUM, IONIZED ALISIA 07/11/2019 11:[address]IO TECHNICIAN TISSUE EXAM AP Routine 07/11/2019 9:[address] [employer]IO TECHNICIAN PROCEDURE W/ NIMS 07/11/2019 Malignant neoplasm of 7:[address] [employer] TECHNICIAN thyroid gland (HCC) Case Notes 2 HRS PER FAX THYROIDECTOMY,TOTAL 07/11/2019 Malignant neoplas m of 7:[address] [employer] TECHNICIAN thyroid gland (HCC) Case Notes 2 HRS PER FAX PLATELET COUNT Routine 07/05/2019 4:[address] [employer]IO TECHNICIAN PROTHROMBIN TIME/INR Routine 07/05/2019 4:[address] [employer]IO TECHNICIAN HEMOGLOBIN Routine 07/05/2019 4:[address] [employer]IO TECHNICIAN after 01/12/2019 Results * Calcium (07/17/2019 11:[address] [employer]IO TECHNICIAN) Calcium 9.9 8.4 - 10.2 mg/dL [facility] Specimen Blood Performing Organization Address [facility] Ph one Number [address] [facility] * Calcium, Ionized (07/12/2019 8:[address] [employer]IO TECHNICIAN) Only the most recent of 3 results within the time period is included. Calcium, Ion 1.19 1.12 - 1.27 mmol/L [facility] pH, Blood 7.37 [facility] Specimen Blood Performing Organization Address [facility] Ph one Number [address] [facility] * PTH, intact (07/11/2019 11:[address] [employer]IO TECHNICIAN) PTH 64.0 8.5 - 72.5 pg/mL [facility] Specimen Blood Performing Organization Address [facility] Ph one Number [address] [facility] * Tissue Exam (07/11/2019 9:[address] [employer]IO TECHNICIAN) Case Report Surgical Pathology [facility] TH Report [facility] Case: [id number] Authorizing Provider:Fareed Vang MDCollected: 07/11/2019 0947 Ordering Location: [facility] PERIOPERATIVE Received: 07/11/2019 1249 SERVICES Pathologist: James Davalos MD Specimens: A) - Thyroid, Right B) - Thyroid, Left DIAGNOSIS PART A RIGHT LOBE OF THYROID, [facility] HEMITHYROIDECTOMY (6.0 GRAMS): [facility] PAPILLARY THYROID CARCINOMA, CLASSIC MORPHOLOGY, 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 THE NEOPLASM IS PRESENT IN THE RIGHT LOWER LOBE. LYMPHOVASCULAR INVASION IS NOT IDENTIFIED. EXTRATHYROIDAL EXTENSION IS NOT IDENTIFIED. SURGICAL MARGINS ARE NEGATIVE FOR TUMOR. AJCC CLASSIFICATION (8TH EDITION) [id number]. SEE SYNOPTIC REPORT. PART B LEFT LOBE OF THYROID, HEMITHYROIDECTOMY (6.0 GRAMS): THYROID WITHOUT SIGNIFICANT HISTOPATHOLOGIC ALTERATION. NEGATIVE FOR MALIGNANCY. Signing Pathologist Direct Phone Line: [phone] SYNOPTIC REPORT THYROID GLAND(Thyroid - [facility] All Specimens) [facility] 8th Edition - Protocol posted: 10/12/2018 : SPECIMEN Procedure:Total thyroidectomy TUMOR Tumor Focality:Unifocal : : Tumor Site:Right lobe Histologic Type:Papillary carcinoma, classic (usual, conventional) Tumor Size (Centimeters):Greatest Dimension (Centimeters): 1.0 cm Additional Dimension (Centimeters):0.7 cm Additional Dimension (Centimeters):0.7 cm Extrathyroidal Extension:Not identified Angioinvasion (vascular invasion):Not identified Lymphatic Invasion:Present Perineural Invasion:Not identified Margins:Uninvolved by carcinoma Distance of Invasive Carcinoma from Closest Margin (Millimeters):1 mm LYMPH NODES Regional Lymph Nodes:No lymph nodes submitted or found PATHOLOGIC STAGE CLASSIFICATION (pTNM, AJCC 8th Edition) : Primary Tumor (pT):pT1a Regional Lymph Nodes (pN):pNX CPT Code([facility]) 33454W5 [facility] CLINICAL HISTORY Malignant neoplasm of thyroid [facility] gland [facility] SPECIMEN SOURCE A. RIGHT LOBE OF THYROID; [facility] LEFT LOBE OF THYROID. [facility] GROSS DESCRIPTION The case has two parts. [facility] A. Received in formalin [facility] labeled with the patient's name, accession number and "right thyroid" is a 6.0 gm, 4.0 x 2.4 x 1.5 cm right thyroid lobe and isthmus. Parathyroid glands are not grossly appreciated. The anterior margin is inked blue, the posterior margin is inked black, and the isthmic margin is inked yellow. The specimen is serially sectioned from upper pole to lower pole to reveal a 1.0 x 0.7 x 0.7 cm, dahl-pink, ill-defined, homogeneous nodule at the lower pole that is abutting the anterior margin, is 0.1 cm from the isthmic margin, and 0.1 cm from the posterior margin. The remaining uninvolved cut surface is red and finely granular. Dictaphone Mechanic sections to include the entire nodule are submitted as follows; Section code: [id number] nodule, lower pole A3-uninvolved thyroid, upper pole A4-uninvolved thyroid, mid pole Part B. Received in formalin labeled with the patient's name, accession number and "left thyroid" is a 6.0 gm, 3.6 x 2.5 x 1.5 cm focally disrupted left thyroid lobe and isthmus. Parathyroid glands are not grossly appreciated. The anterior margin is inked blue, the posterior margin is inked black, and the isthmic margin is inked yellow. The specimen is serially sectioned from upper pole to lower pole to reveal a red-brown, homogeneous, finely granular cut surface. No discrete lesions are grossly appreciated. Dictaphone Mechanic sections to include the entire nodule are submitted as follows; Section code: B1-upper pole B2-B3-mid pole B4-B5-lower pole PA/ew MICROSCOPIC DESCRIPTION Performed. [facility] Gross assessment was [facility] performed at [place], Department of [facility] TER Pathology, [address] [place] [id number], Technical component was [facility] performed at [place], Department of [facility] TER Pathology, [address] [place] [id number], Professional component [facility] was performed at [place], Department of [facility] TER Pathology, [address] [place] [id number], Specimen Tissue - Thyroid, Right Tissue - Thyroid, Left Performing Organization Address City/State/Zipcode Ph one Number [place] [phone] [facility] * Prothrombin time/INR (07/05/2019 4:[address] [employer]IO TECHNICIAN) Protime 13.1 11.9 - 14.2 seconds [facility] INR 1.0 <=5.9 [facility] Specimen Blood Narrative Performed At RECOMMENDED COUMADIN/WARFARIN INR THERAPY RANGES [facility] STANDARD DOSE: 2.0 - 3.0 Includes: PROPHYLAXIS fo r venous thrombosis, [facility] systemic embolization; TREATMENT for ve nous thrombosis and/or pulmonary embolus. HIGH RISK: Target INR is 2.5-3.5 for pa tients with mechanical heart valves. Performing Organization Address [facility] one Number [address] [facility] * Platelet count (07/05/2019 4:[address] [employer]IO TECHNICIAN) Platelets 204 150 - 450 K/CU MM [facility] Specimen Blood Performing Organization Address [facility] one Number [address] [facility] * Hemoglobin (07/05/2019 4:[address] [employer]IO TECHNICIAN) Hemoglobin 13.2 11.2 - 15.7 GM/DL [facility] Specimen Blood Performing Organization Address [facility] one Number [address] [facility] after 01/12/2019 Insurance Payer Benefit Subscriber ID Type Phone Address Plan / Group [employer] - [employer] CARE [employer] xxxxxxxxxxx HMO/POS HMO/POS/OP EN ACCESS [phone] Advance Directives For more information, please contact: [address] [phone] Date Inactivated Comments Code Status Date Activated 07/12/2019 12:45 PM Full Code 07/11/2019 1:38 PM This code status was determined by: Patient
--- OUTSIDE RECORDS SUMMARY | 2020-01-13 23:17 | XMS REPORT ---
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 Name Role Phone MARY LUNDBERG, Kadeem TANNER PCP Neena THEODORE Attphys Unavailable EMILY VANG Attphys Unavailable HUDECarmine Attphys Unavailable Kadeem HERNANDEZ Attphys Unavailable DYLAN ARTIS Attphys Unavailable Dena CHADWICK Attphys Unavailable NATHAN, S MIKALA Attphys Unavailable ZEBALLOS, R CARLEEN Attphys Unavailable MANEEVESE, V DARREN Attphys Unavailable HUSBY, T DYLAN Attphys Unavailable GRIFFIN, Elena CERVANTES Attphys Unavailable EMILY VANG Admphys Unavailable Kadeem HERNANDEZ Admphys Unavailable Payers Payer Name Policy Type Policy Number Effective Date Expiration Date Martell elizabeth Cigna Hmo [id number] 2019 00:00:00 [facility] Self Pay NA [facility] Cigna Ppo [id number] 2018 00:00:00 [facility] Problems Condition Name Condition Details Condition Category Status Onset Date Resolution Date Last Treatment Date Treating Clinician Comments Source TIA (transient ischemic attack) TIA (transient ischemic attack) Pro blem Active 2015-04-23 00:00:00 [facility] Chest pain Chest pain Problem Active C [facility] Allergies, Adverse Reactions, Alerts Allergy Name Allergy Type Status Severity Reaction(s) Onset Date Inacti ve Date Treating Clinician Comments Source morphine DA Active AR 2019-02-08 00:00:00 [facility] Morphine Allergy to Substance Active Mild HIVES 2018-12-02 00:00:00 [facility] morphine DA Active AR 2016-07-07 00:00:00 [facility] Medications Ordered Medication Name Filled Medication Name Start Date Stop Da te Current Medication? Ordering Clinician Indication Dosage Frequency Signature (SIG) Comments Components Source Ketorolac Tromethamine (Toradol) 10 Mg Tablet Ketorola c Tromethamine (Toradol) 10 Mg Tablet 2018-10-20 00:00:00 Yes Carleen Albert Md 10 Every 8 Hours for Pain [facility] Omeprazole 40 Mg Capsule. Omeprazole 40 Mg Capsule. 2018-10-20 00:00:00 Yes Carleen Albert Md 1 Daily [facility] Acetaminophen With Codeine (Tylenol With Codeine #3 Ta blet) 1 Each Tablet Acetaminophen With Codeine (Tylenol With Codeine #3 Tablet) 1 Each Tablet Yes 300 Three Times A Day as needed for Prn [facility] Albuterol Sulfate (Proair Hfa Inhaler*) 8.5 Gm Inh Alb uterol Sulfate (Proair Hfa Inhaler*) 8.5 Gm Inh Yes 2 Vijaya ry 4 Hours as needed for Shortness Of Breath [facility] D-Methorphan Hb/P-Epd Hcl/Bpm (Bromfed Dm Cough Syrup) 118 Ml Syrup D-Methorphan Hb/P-Epd Hcl/Bpm (Bromfed Dm Cough Syrup) 118 Ml Syrup Yes 10 Every 6 Hours [facility] Gabapentin 300 Mg Capsule Gabapentin 300 Mg Capsule Yes 300 Three Times A Day [facility] Methylprednisolone (Medrol) 4 Mg Tablet Methylprednisolone ( Medrol) 4 Mg Tablet Yes 4 Use As Directed C [facility] Fenofibrate Nanocrystallized (Fenofibrate) 145 Mg Tabl et, 160 Mg Fenofibrate Nanocrystallized (Fenofibrate) 145 Mg Tablet, 160 Mg 2019-05-21 00: 00:00 No 160 Daily [facility] Sucralfate 1 Gm Tablet, 1 Gm Oral Sucralfate 1 Gm Tablet, 1 Gm O ral 2019-05-21 00:00:00 No 1 Three Times A Day [facility] Pantoprazole Sodium (Protonix) 40 Mg Tablet., 40 Mg Oral Pantoprazole Sodium (Protonix) 40 Mg Tablet., 40 Mg Oral 2018-06-27 00:00:00 No 40 Daily [facility] Aspirin (Aspir 81) 81 Mg Tablet., 81 Mg Oral Aspirin (Aspir 81) 81 Mg Tablet.dr, 81 Mg Oral 2018-06-02 00:00:00 No 81 [facility] Atorvastatin Calcium (Lipitor) 20 Mg Tablet, 20 Mg Tavon rvastatin Calcium (Lipitor) 20 Mg Tablet, 20 Mg 2018-06-02 00:00:00 No 20 Daily [facility] Cetirizine Hcl 10 Mg Tablet, 10 Mg Oral Cetirizine Hcl 10 Mg Tablet, 10 Mg Oral 2018-06-02 00:00:00 No 10 Daily [facility] Ferrous Sulfate 325 Mg Tablet, 325 Mg Oral Ferrous Sul fate 325 Mg Tablet, 325 Mg Oral 2018-06-02 00:00:00 No 325 Daily [facility] Ibuprofen 400 Mg Tablet, 400 Mg Oral Ibuprofen 400 Mg Tablet, 40 0 Mg Oral 2018-06-02 00:00:00 No 400 As Needed [facility] Brompheniramin/Pe/Dextromethor (Cold & Cough Elixir) 1 18 Ml Solution, Brompheniramin/Pe/Dextromethor (Cold & Cough Elixir) 118 Ml Solution, 2017-07-02 00:00:00 No [facility] Acyclovir 200 Mg Capsule, 400 Mg Oral Acyclovir 200 Mg Capsule, 400 Mg Oral 2017-06-07 00:00:00 No 400 Daily [facility] Gabapentin 100 Mg Capsule, Oral Gabapentin 100 Mg Capsule, O ral 2017-06-07 00:00:00 No Twice A Day [facility] Tramadol Hcl (Ultram) 50 Mg Tablet, 50 Mg Oral Tramado l Hcl (Ultram) 50 Mg Tablet, 50 Mg Oral 2017-06-07 00:00:00 No 50 Every 6 Hours as needed for Pain [facility] Procedures Procedure Date / Time Performed Performing Clinician Sour e Computed tomography of abdomen and pelvis with contrast 2019 00:00:00 BULMARO THEODORE [facility] Encounters Start Date/Time End Date/Time En[facility] ID Source 2019-12-04 07:18:00 2019-12-04 10:11:00 Departed Emergency Room 1 BULMARO THEODORE [facility] [id number] [facility] 2019-06-19 10:23:00 2019-06-19 10:23:00 Registered Clinic 3 RASHEED STEPHANE NARVAEZ [facility] [id number] [facility] 2019-05-20 19:49:00 2019-05-22 14:44:00 Discharged Inpatient (obs) 1 CIRO HERNANDEZ [facility] [id number] [facility] 2019-04-23 11:42:00 2019-04-23 13:56:00 Departed Emergency Room 1 CARINABEADYLAN [facility] [id number] [facility] 2019-02-22 04:24:00 2019-02-22 06:08:00 Departed Emergency Room 1 ANN CHADWICK [facility] [id number] [facility] 2018-12-02 09:49:00 2018-12-02 14:30:00 Departed Emergency Room 1 MIKALA EVANS [facility] [id number] [facility] 2018-10-20 06:36:00 2018-10-23 17:21:00 Discharged Inpatient (obs) 1 RALEIGH HERNANDEZUL [facility] [id number] [facility] 2018-10-20 00:06:00 2018-10-20 01:53:00 Departed Emergency Room 1 CARLEEN ALBERT [facility] [id number] [facility] 2018-07-04 11:47:00 2018-07-04 11:47:00 Registered Clinic 3 CIRO LAROSE [facility] [id number] [facility] 2018-06-29 10:24:00 2018-06-29 10:24:00 Registered Surgical Day Care [facility] [id number] [facility] 2018-06-02 17:38:00 2018-06-05 13:27:00 Discharged Inpatient (obs) 9 CIRO HERNANDEZ [facility] [id number] [facility] 2018-05-03 16:59:00 2018-05-03 21:58:00 Departed Emergency Room 1 DARREN PERSAUD [facility] [id number] [facility] 2018-01-14 14:52:00 2018-01-14 18:17:00 Departed Emergency Room [facility] [id number] [facility] 2017-10-02 00:22:00 2017-10-02 03:38:00 Departed Emergency Room ER ANN CHADWICK [facility] [id number] [facility] 2017-07-26 19:54:00 2017-07-28 10:35:00 Discharged Inpatient (obs) ER DYLAN PRUITT [facility] [id number] [facility] 2017-07-01 05:24:00 2017-07-02 11:20:00 Discharged Inpatient (obs) ER BULMARO THEODORE [facility] [id number] [facility] 2017-06-07 06:42:00 2017-06-07 09:18:00 Departed Emergency Room ER HELEN GRIFFIN [facility] [id number] [facility] Results Test Description Test Time Test Comments Results Result Comments Source CT ABDOMEN/PELVIS W 2019-12-04 09:41:00 [facility] [address] [place] [address] Patient Name: SASHA POPE MR #: [id number] : 1965 Age/Sex: 54/F [facility] #: [id number] Req #: [id number] Adm Physician: Ordered by: BULMARO THEODORE MD Report #: [id number] Location: ER Room/Bed: Procedure: [id number] CT/CT ABDOMEN/PELVIS W Exam Date: 12/04/19 Exam Time: 905 REPORT STATUS: Signed CT ABDOMEN WITH CONTRAST, CT PELVIS WITH CONTRAST HISTORY: Bilateral flank pain, history of partial left nephrectomy COMPARISON: Noncontrast CT of the abdomen and pelvis from 04/23/2019 TECHNIQUE: CT of the abdomen and pelvis was performed with intravenous contrast. The examination was performed to conform to our departmental dose optimization program which includes automated exposure control, adjustment of the mA and/or kV according to patient size and/or use of iterative reconstruction techniques. FINDINGS: Lung bases clear. No pleural or pericardial effusions. The gallbladder is surgically absent, with surgical clips in the gallbladder fossa. No significant bile duct dilatation is visualized. No CT abnormalities are visualized in the liver, spleen, pancreas, adrenal glands, or right kidney. There are postoperative changes in these upper pole of the left kidneys consistent with history of prior partial left fracture may. No recurrent tumor is seen with certainty. No hydronephrosis or hydroureter. No ureteral calculi are visualized. Bladder unremarkable. No lymphadenopathy is visualized in the abdomen or pelvis. Uterus is absent. No adnexal mass is identified. No dilated loops of large or small intestine. Several diverticula are noted in the descending colon and sigmoid colon, without specific CT evidence of acute diverticulitis. No free air or abscess are identified. There are postoperative changes in the cecum, possibly representing related to prior appendectomy. The appendix is not directly visualized. There are no inflammatory changes adjacent to the cecum. No gastric abnormalities are identified. No abdominal aortic aneurysm. No fracture or destructive bone lesions. There are degenerative changes in the lower lumbar spine. There is mild arthrosis of the sacroiliac joints. IMPRESSION: 1. No acute CT abnormalities are identified in the abdomen or pelvis. 2. Multiple diverticula in the descending colon and sigmoid colon. No specific CT evidence of acute diverticulitis. 3. Prior cholecystectomy. No significant bile duct dilatation. 4. Prior hysterectomy. 5. Question prior appendectomy. 6. Prior partial left nephrectomy. No specific CT evidence of recurrent tumor. Signed by: John Martell MD on 12/04/2019 9:49 AM Dictated By: JOHN MARTELL MD 8 Transcribed By: GARO on 12/04/19948 COPY TO: BULMARO THEODORE MD Urine WBC 2019-12-04 08:32:00 Test Item Urine WBC (test code = 5821-4) 0-5 0-5 [facility] [id number] 08:32:00* Test Item Value Reference Range Interpretation Comments Urine RBC (test code = 86123-5) NONE 0-5 [facility] Center[facility] Hqrwlqva4347-48-65 08:32:00* Test Item Value Reference Range Interpretation Comments Urine Bacteria (test code = 60634-8) FEW NONE [facility] CenterU[facility] Epithelial Tabpp1978-41-98 08:32:00 * Test Item Value Reference Range Interpretation Comments Urine Epithelial Cells (test code = 07024-7) FEW NONE [facility] Nkyxm6087-86-89 08:18:00* Test Item Value Reference Range Interpretation Comments Sodium Level (test code = 2951-2) 140 136-145 [facility] CenterPotassium Tqpfp9216-31-02 08:18:00* Test Item Value Reference Range Interpretation Comments Potassium Level (test code = 2823-3) 4.0 3.5-5.1 [facility] CenterChloride Fjphc3784-84-97 08:18:00* Test Item Value Reference Range Interpretation Comments Chloride Level (test code = 2075-0) 106 98-107 [facility] CenterCarbon Dioxide Migqw5571-80-63 08:18:00* Test Item Value Reference Range Interpretation Comments Carbon Dioxide Level (test code = 2028-9) 27 22-29 [facility] CenterAnion [id number] 08:18:00* Test Item Value Reference Range Interpretation Comments Anion Gap (test code = 83092-9) 11.0 8-16 [facility] CenterBlood Urea Bktfosdk6283-99-36 08:18:00* Test Item Value Reference Range Interpretation Comments Blood Urea Nitrogen (test code = 3094-0) 19 7-26 [facility] CenterCreatinine2020-04-20 08:18:00* Test Item Value Reference Range Interpretation Comments Creatinine (test code = 2160-0) 0.71 0.57-1.11 [facility] CenterBUN/Creatinine Xgwmw4762-01-09 08:18:00* Test Item Value Reference Range Interpretation Comments BUN/Creatinine Ratio (test code = 3097-3) 27 6-25 H [facility] CenterEstimat Glomerular Filtration Rate 2019-12-04 08:18:00* Test Item Value Reference Range Interpretation Comments Estimat Glomerular Filtration Rate (test code = 450486917) > 60 >60 Ranges were taken from the National Kidney Disease Education Program and the [facility] literature.Reference ranges:60 or greater: Kbkkkv77-08 ( for 3 consecutive months): Chronic kidney disease 15 or less: Kidney failureMethodist Richardson Medical CenterGlucose Tqrhp3210-99-26 08:18:00* Test Item Value Reference Range Interpretation Comments Glucose Level (test code = UHP3277) 92 74-118 [facility] CenterCalcium Mjckt6977-57-78 08:18:00* Test Item Value Reference Range Interpretation Comments Calcium Level (test code = 10212-0) 9.3 8.4-10.2 [facility] CenterTotal Kiqjtsqhw7717-04-44 08:18:00* Test Item Value Reference Range Interpretation Comments Total Bilirubin (test code = 1975-2) 0.3 0.2-1.2 [facility] CenterAspartate Amino Transf (AST/SGOT) 2019-12-04 08:18:00* Test Item Value Reference Range Interpretation Comments Aspartate Amino Transf (AST/SGOT) (test code = Aspartate Amino Transf (AST/SGOT)) 52 5-34 H [facility] CenterAlanine Aminotransferase (ALT/SGPT) 2019-12-04 08:18:00* Test Item Value Reference Range Interpretation Comments Alanine Aminotransferase (ALT/SGPT) (test code = 1742-6) 80 0-55 H [facility] CenterTotal Cjalkdf6147-13-94 08:18:00* Test Item Value Reference Range Interpretation Comments Total Protein (test code = 2885-2) 7.3 6.5-8.1 [facility] CenterAlbumin2020-04-20 08:18:00* Test Item Value Reference Range Interpretation Comments Albumin (test code = 1751-7) 3.3 3.5-5.0 L [facility] CenterGlobulin2020-04-20 08:18:00* Test Item Value Reference Range Interpretation Comments Globulin (test code = 13180-0) 4.0 2.3-3.5 H [facility] CenterAlbumin/Globulin Wppxx8965-20-01 08:18:00 * Test Item Value Reference Range Interpretation Comments Albumin/Globulin Ratio (test code = 1759-0) 0.8 0.8-2.0 [facility] CenterAlkaline Xqjrmcyubsr1142-74-90 08:18:00* Test Item Value Reference Range Interpretation Comments Alkaline Phosphatase (test code = 6768-6) 83 40-150 [facility] CenterUrine Kmmim9017-62-37 08:16:00* Test Item Value Reference Range Interpretation Comments Urine Color (test code = 5778-6) YELLOW YELLOW [facility] CenterUrine Vtfsbeh5256-53-03 08:16:00* Test Item Value Reference Range Interpretation Comments Urine Clarity (test code = 45159-1) CLEAR CLEAR [facility] CenterUrine Specific Pppgntl9843-10-76 08:16:00 * Test Item Value Reference Range Interpretation Comments Urine Specific [place] (test code = 5811-5) 1.020 1.010-1.02 5 [facility] CenterUrine [id number] 08:16:00* Test Item Value Reference Range Interpretation Comments Urine pH (test code = 93850-1) 6 5-7 [facility] CenterUrine Leukocyte Kegamnip6203-40-75 08:16:00* Test Item Value Reference Range Interpretation Comments Urine Leukocyte Esterase (test code = 5799-2) NEGATIVE NEGATIVE [facility] CenterUrine Nqaeqyg1148-46-52 08:16:00* Test Item Value Reference Range Interpretation Comments Urine Nitrite (test code = 41822-4) NEGATIVE NEGATIVE [facility] CenterUrine Rosxlwc8861-97-87 08:16:00* Test Item Value Reference Range Interpretation Comments Urine Protein (test code = 5804-0) NEGATIVE NEGATIVE [facility] CenterUrine Glucose (UA)2019-12-04 08:16:00* Test Item Value Reference Range Interpretation Comments Urine Glucose (UA) (test code = 2349-9) NEGATIVE NEGATIVE [facility] CenterUrine Wfboigm4345-53-69 08:16:00* Test Item Value Reference Range Interpretation Comments Urine Ketones (test code = 62843-7) NEGATIVE NEGATIVE [facility] Yayctdwztkkg4575-90-61 08:16:00* Test Item Value Reference Range Interpretation Comments Urine Urobilinogen (test code = 75862-5) 0.2 0.2-1 [facility] CenterUrine Qtrylzegz2523-28-08 08:16:00* Test Item Value Reference Range Interpretation Comments Urine Bilirubin (test code = 1978-6) NEGATIVE NEGATIVE [facility] CenterUrine Togad9709-56-07 08:16:00* Test Item Value Reference Range Interpretation Comments Urine Blood (test code = 76485-2) NEGATIVE NEGATIVE [facility] CenterWhite Blood Eszkt5987-05-28 07:57:00* Test Item Value Reference Range Interpretation Comments White Blood Count (test code = 6690-2) 7.29 4.8-10.8 [facility] CenterRed Blood Ftpqr1019-46-21 07:57:00* Test Item Value Reference Range Interpretation Comments Red Blood Count (test code = 789-8) 4.38 3.6-5.1 [facility] CenterHemoglobin2020-04-20 07:57:00* Test Item Value Reference Range Interpretation Comments Hemoglobin (test code = 61479-9) 12.6 12.0-16.0 [facility] CenterHematocrit2020-04-20 07:57:00* Test Item Value Reference Range Interpretation Comments Hematocrit (test code = 4544-3) 38.2 34.2-44.1 [facility] CenterMean Corpuscular Ibsxtl6258-95-39 07:57:00* Test Item Value Reference Range Interpretation Comments Mean Corpuscular Volume (test code = 787-2) 87.2 81-99 [facility] CenterMean Corpuscular Vsmjtyekfr9610-29-86 07:57:00* Test Item Value Reference Range Interpretation Comments Mean Corpuscular Hemoglobin (test code = 785-6) 28.8 28-32 [facility] CenterMean Corpuscular Hemoglobin Concent 2019-12-04 07:57:00* Test Item Value Reference Range Interpretation Comments Mean Corpuscular Hemoglobin Concent (test code = 786-4) 33.0 31-35 [facility] CenterRed Cell Distribution Mwhey6208-86-73 07:57:00* Test Item Value Reference Range Interpretation Comments Red Cell Distribution Width (test code = 21181-7) 13.2 11.7 -14.4 [facility] CenterPlatelet Gbekw8394-95-13 07:57:00* Test Item Value Reference Range Interpretation Comments Platelet Count (test code = 777-3) 201 140-360 [facility] CenterNeutrophils (%) (Auto)2019-12-04 07:57:00 * Test Item Value Reference Range Interpretation Comments Neutrophils (%) (Auto) (test code = 61762-7) 51.3 38.7-80.0 [facility] CenterLymphocytes (%) (Auto)2019-12-04 07:57:00 * Test Item Value Reference Range Interpretation Comments Lymphocytes (%) (Auto) (test code = 736-9) 37.9 18.0-39.1 [facility] CenterMonocytes (%) (Auto)2019-12-04 07:57:00* Test Item Value Reference Range Interpretation Comments Monocytes (%) (Auto) (test code = 5905-5) 6.9 4.4-11.3 [facility] CenterEosinophils (%) (Auto)2019-12-04 07:57:00 * Test Item Value Reference Range Interpretation Comments Eosinophils (%) (Auto) (test code = 713-8) 3.3 0.0-6.0 [facility] CenterBasophils (%) (Auto)2019-12-04 07:57:00* Test Item Value Reference Range Interpretation Comments Basophils (%) (Auto) (test code = 706-2) 0.3 0.0-1.0 [facility] CenterIM GRANULOCYTES %2019-12-04 07:57:00* Test Item Value Reference Range Interpretation Comments IM GRANULOCYTES % (test code = IM GRANULOCYTES %) 0.3 0.0- 1.0 [facility] CenterNeutrophils # (Auto)2019-12-04 07:57:00* Test Item Value Reference Range Interpretation Comments Neutrophils # (Auto) (test code = 751-8) 3.8 2.1-6.9 [facility] CenterLymphocytes # (Auto)2019-12-04 07:57:00* Test Item Value Reference Range Interpretation Comments Lymphocytes # (Auto) (test code = 87801-9) 2.8 1.0-3.2 [facility] CenterMonocytes # (Auto)2019-12-04 07:57:00* Test Item Value Reference Range Interpretation Comments Monocytes # (Auto) (test code = 742-7) 0.5 0.2-0.8 [facility] CenterEosinophils # (Auto)2019-12-04 07:57:00* Test Item Value Reference Range Interpretation Comments Eosinophils # (Auto) (test code = 711-2) 0.2 0.0-0.4 [facility] CenterBasophils # (Auto)2019-12-04 07:57:00* Test Item Value Reference Range Interpretation Comments Basophils # (Auto) (test code = 704-7) 0.0 0.0-0.1 [facility] CenterAbsolute Immature Granulocyte (auto 2019-12-04 07:57:00* Test Item Value Reference Range Interpretation Comments Absolute Immature Granulocyte (auto (jesus t code = Absolute Immature Granulocyte (auto) 0.02 0-0.1 [facility] HospitalCR M[facility]M BILATERAL EREN CAD DIGITAL 2019-09-19 13:10:29 - SCR MAMM BILATERAL EREN CAD DIGITALBILATERAL DIGITAL SCREENING MAMMOGRAM 3D/2D WITH CAD: 09/19/2019CLINICAL: Asymptomatic. Digital breast tomosynthesis was performed in addition to routine CC and MLO views. Current mammographic images were evaluated by either a [employer] Back[employer] M-Vu or a [employer] ImageChecker CAD (computer aided detection system). Comparison is made to exams dated 01/06/2018 mammogram and 08/31/2013 mammogram - [facility]. There are scattered fibroglandular tissues in both breasts. No suspicious mass, architectural distortion, malignant type calcification, or lymph node abnormality detected. Breast architecture is stable compared to prior exams.IMPRESSION: NEGATIVEThere is no mammographic evidence of malignancy. Resume annual screening mammography in one year. Cooper Carter M.D. ss/penrad:09/19/2019 13:10:29 [employer] Panels Plater: Loreto De La Fuente , [facility] sent: BIRADS 1-2 Normal Mammogram BI-RADS: 1 NegativeTISSUE [id number] 15:06:00Surgical Pathology Report Case: [id number] Authorizing Provider: Fareed Vang MD Collected: 07/11/2019 0947 Ordering Location: [facility] Received: 07/11/2019 1249 SERVICES Pathologist: James Davalos MD Specimens: A) - Thyroid, Right B) - Thyroid, Left PART A RIGHT LOBE OF THYROID, HEMITHYROIDECTOMY (6.0 GRAMS):PAPILLARY THYROID CARCINOMA, CLASSIC MORPHOLOGY, 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 SEE SYNOPTIC REPORT.P ART B LEFT LOBE OF THYROID, HEMITHYROIDECTOMY (6.0 GRAMS):THYROID WITHOUT SIGNIF ICANT HISTOPATHOLOGIC ALTERATION.NEGATIVE FOR MALIGNANCY. Signing Pathologi st Direct Phone Line: [phone] signed by James Davalos MD on 07/17/2019 at 3:06 PMTHYROID GLAND (Thyroid - All Specimens)8th Editio n - Protocol posted: 10/12/2018 : SPECIMEN Procedure: Total thyroidecto my TUMOR Tumor Focality: Unifocal : : Tumor Site: Right l obe Histologic Type: Papillary carcinoma, classic (usual, conventional) Tumor Size (Centimeters): Greatest Dimension (Centimeters): 1.0 cm Additional Dimension (Centimeters): 0.7 cm Additional Dimension (Centi meters): 0.7 cm Extrathyroidal Extension: Not identified Angioinv asion (vascular invasion): Not identified Lymphatic Invasion: Present Perineural Invasion: Not identified Margins: Uninvolved by carc inoma Distance of Invasive Carcinoma from Closest Margin (Millimeters): 1 mmLYMPH NODES Regional Lymph Nodes: No lymph nodes submitted or found PAT HOLOGIC STAGE CLASSIFICATION (pTNM, AJCC 8th Edition) : Primary Tumor (pT) : pT1a Regional Lymph Nodes (pN): pNX [id number] neoplasm of thyroi d glandA. RIGHT LOBE OF THYROID; B. LEFT LOBE OF THYROID.The case has two parts. A. Received in formalin labeled with the patient's name, accession number and "r ight thyroid" is a 6.0 gm, 4.0 x 2.4 x 1.5 cm right thyroid lobe and isthmus. Pa rathyroid glands are not grossly appreciated. The anterior [...] from the isthmic margin, and 0.1 cm f rom the posterior margin. The remaining uninvolved cut surface is red and finely granular. Petal Cutter sections to include the entire nodule are submitted as follows;Section code:X4-R0-bzzkfo nodule, lower poleA3-uninvolved thyroid, upper poleA4-uninvolved thyroid, mid polePart B. Received in formalin labeled with the [...] lower pole to reveal a red-brown, homogeneous, fin da granular cut surface. No discrete lesions are grossly appreciated. Represent ative sections to include the entire nodule are submitted as follows;Section cod e:B1-upper ennlD7-X3-hbg ibkkF9-F9-upscb polePA/ewPerformed.[facility], Department of Pathology, [address] [place] [address], T el [phone] [facility], [facility] of [facility], [address] [place] [address], [facility]vghsx[facility], [facility] of [facility], [address] [place] [address], Tel [id number] 12:50:00* Test Item Value Reference Range Interpretation Comments CALCIUM (BEAKER) (test code = 697) 9.9 mg/dL 8.4-10.2 CALCIUM, NJSRVCQ9029-89-20 08:49:00* Test Item Value Reference Range Interpretation Comments CALCIUM IONIZED (BEAKER) (test code = 698) 1.19 mmol/L 1.12-1.27 PH, BLOOD (BEAKER) (test code = 1810) 7.37 CALCIUM, [id number] 22:57:00* Test Item Value Reference Range Interpretation Comments CALCIUM IONIZED (BEAKER) (test code = 698) 1.12 mmol/L 1.12-1.27 PH, BLOOD (BEAKER) (test code = 1810) 7.38 PTH, [id number] 11:55:00* Test Item Value Reference Range Interpretation Comments PARATHYROID HORMONE INTACT (BEAKER) (test code = 577) 64.0 pg/mL 8.5-72.5 CALCIUM, [id number] 11:35:00* Test Item Value Reference Range Interpretation Comments CALCIUM IONIZED (BEAKER) (test code = 698) 1.08 mmol/L 1.12-1.27 L PH, BLOOD (BEAKER) (test code = 1810) 7.36 PROTHROMBIN TIME/[id number] 17:30:00* Test Item Value Reference Range Interpretation Comments PROTIME (BEAKER) (test code = 759) 13.1 seconds 11.9-14.2 INR (BEAKER) (test code = 370) 1.0 <=5.9 RECOMMENDED COUMADIN/WARFARIN INR THERAPY RANGESSTANDARD DOSE: 2.0 - 3.0 Inclu lilibeth: PROPHYLAXIS for venous thrombosis, systemic embolization; TREATMENT for leatha ous thrombosis and/or pulmonary embolus.HIGH RISK: Target INR is 2.5-3.5 for pat ients with mechanical heart valves.YRFWBXHVOG1380-67-63 17:21:00* Test Item Value Reference Range Interpretation Comments HEMOGLOBIN (BEAKER) (test code = 410) 13.2 GM/DL 11.2-15.7 PLATELET [id number] 17:21:00* Test Item Value Reference Range Interpretation Comments PLATELET COUNT (BEAKER) (test code = 756) 204 K/CU MM 150-450 BONE and/or JOINT WHOLE XSNY0620-27-46 21:25:00 [place] [address] Patient Name: SASHA POPE MR #: [id number] : 1965 Age/Sex: 54/F Req #: [id number] Adm Physician: Ordered by: STEPHANE DUNLAP M.D. Report #: [id number] Location: [place] Room/Bed: Procedure: 1104-0 004 NM/BONE and/or JOINT WHOLE BODY Exam Date: 06/19/19 Exam Time: 1040 REPORT STATUS: Signed Bone Scan, delayed phase INDICATION: 54 F with history of renal and colon cancer in 2018; recent diagnosis of thyroid cancer. COMPARISON: No prior bone scan; CT chest 05/20/2019; CT abdo/pelvis 04/23/2019 REPORT: Ap proximately 3 hours following intravenous administration of 27.5 mCi of Tc-99m MDP, delayed total body images in the anterior and posterior projections and selected spot images were obtained. Distribution of tracer activity appea rs physiologic throughout the skeletal system. No abnormal accumulation o f tracer is seen in the soft tissues or urinary tract. The left kidney is dec reased in size. IMPRESSION: No scan evidence of metastatic bone disea se. Signed by: Dr. Meggan Tejada M.D. on 06/19/2019 9:30 PM Dictated B y: MEGGAN TEJADA MD 29 Tr anscribed By: GARO on 06/19/192129 COPY TO: STEPHANE DUNLAP M.D. Creatine Kinase [id number] 07:17:00* Test Item Value Reference Range Interpretation Comments Creatine Kinase MB (test code = 03373-3) 1.20 0-5.0 [facility] [id number] 07:17:00* Test Item Value Reference Range Interpretation Comments Troponin I (test code = RAP3319) < 0.001 0-0.300 [facility] CenterCreatine Kinase [id number] 07:17:00* Test Item Value Reference Range Interpretation Comments Creatine Kinase MB (test code = 12901-4) 1.20 0-5.0 [facility] [id number] 07:17:00* Test Item Value Reference Range Interpretation Comments Troponin I (test code = 80230-8) < 0.001 0-0.300 [facility] CenterCreatine Qcpzhp1277-53-77 07:08:00* Test Item Value Reference Range Interpretation Comments Creatine Kinase (test code = 2157-6) 49 29-168 [facility] CenterCreatine Ecwnva0142-58-88 07:08:00* Test Item Value Reference Range Interpretation Comments Creatine Kinase (test code = 2157-6) 49 29-168 [facility]odium Vzigi3961-29-29 06:25:00* Test Item Value Reference Range Interpretation Comments Sodium Level (test code = 2951-2) 138 136-145 [facility] CenterPotassium Lmuni6621-39-11 06:25:00* Test Item Value Reference Range Interpretation Comments Potassium Level (test code = 2823-3) 4.2 3.5-5.1 [facility] CenterChloride Ayetn4882-39-01 06:25:00* Test Item Value Reference Range Interpretation Comments Chloride Level (test code = 2075-0) 104 98-107 [facility] CenterCarbon Dioxide Pvaxd1015-43-04 06:25:00* Test Item Value Reference Range Interpretation Comments Carbon Dioxide Level (test code = 2028-9) 25 22-29 [facility] CenterAnion Vag0604-39-78 06:25:00* Test Item Value Reference Range Interpretation Comments Anion Gap (test code = 88158-8) 13.2 8-16 [facility] CenterBlood Urea Smkzdamd3499-95-33 06:25:00* Test Item Value Reference Range Interpretation Comments Blood Urea Nitrogen (test code = 3094-0) 14 7-26 [facility] CenterCreatinine2019-10-07 06:25:00* Test Item Value Reference Range Interpretation Comments Creatinine (test code = 2160-0) 0.76 0.57-1.11 [facility] CenterBUN/Creatinine Rwkvh6327-80-83 06:25:00* Test Item Value Reference Range Interpretation Comments BUN/Creatinine Ratio (test code = 3097-3) 18 6-25 [facility] CenterEstimat Glomerular Filtration Rate 2019-05-22 06:25:00* Test Item Value Reference Range Interpretation Comments Estimat Glomerular Filtration Rate (test code = 259905326) > 60 >60 Ranges were taken from the National Kidney Disease Education Program and the [facility] Foundation literature.Reference ranges:60 or greater: Jlbliv50-48 ( for 3 consecutive months): Chronic kidney disease 15 or less: Kidney failureMethodist Richardson Medical CenterGlucose Curom6918-36-28 06:25:00* Test Item Value Reference Range Interpretation Comments Glucose Level (test code = KJL9150) 93 74-118 [facility] CenterCalcium Bgbvc8504-81-82 06:25:00* Test Item Value Reference Range Interpretation Comments Calcium Level (test code = 85381-6) 9.2 8.4-10.2 [facility] CenterTotal Qnytttoiv3393-38-18 06:25:00* Test Item Value Reference Range Interpretation Comments Total Bilirubin (test code = 1975-2) 0.2 0.2-1.2 [facility] CenterAspartate Amino Transf (AST/SGOT) 2019-05-22 06:25:00* Test Item Value Reference Range Interpretation Comments Aspartate Amino Transf (AST/SGOT) (test code = Aspartate Amino Transf (AST/SGOT)) 53 5-34 H [facility] CenterAlanine Aminotransferase (ALT/SGPT) 2019-05-22 06:25:00* Test Item Value Reference Range Interpretation Comments Alanine Aminotransferase (ALT/SGPT) (test code = 1742-6) 65 0-55 H [facility] CenterTotal Kxlisur4649-92-13 06:25:00* Test Item Value Reference Range Interpretation Comments Total Protein (test code = 2885-2) 7.2 6.5-8.1 [facility] CenterAlbumin2019-10-07 06:25:00* Test Item Value Reference Range Interpretation Comments Albumin (test code = 1751-7) 3.2 3.5-5.0 L [facility] CenterGlobulin2019-10-07 06:25:00* Test Item Value Reference Range Interpretation Comments Globulin (test code = 88381-9) 4.0 2.3-3.5 H [facility] CenterAlbumin/Globulin Ovwml4554-88-25 06:25:00 * Test Item Value Reference Range Interpretation Comments Albumin/Globulin Ratio (test code = 1759-0) 0.8 0.8-2.0 [facility] CenterAlkaline Brclufvvvyy1020-79-80 06:25:00* Test Item Value Reference Range Interpretation Comments Alkaline Phosphatase (test code = 6768-6) 79 40-150 [facility] CenterWhite Blood Ykwxq6901-75-15 06:09:00* Test Item Value Reference Range Interpretation Comments White Blood Count (test code = 6690-2) 6.07 4.8-10.8 [facility] CenterRed Blood Vhmzn8652-72-60 06:09:00* Test Item Value Reference Range Interpretation Comments Red Blood Count (test code = 789-8) 4.26 3.6-5.1 [facility] CenterHemoglobin2019-10-07 06:09:00* Test Item Value Reference Range Interpretation Comments Hemoglobin (test code = 45752-2) 12.4 12.0-16.0 [facility] CenterHematocrit2019-10-07 06:09:00* Test Item Value Reference Range Interpretation Comments Hematocrit (test code = 4544-3) 37.5 34.2-44.1 [facility] CenterMean Corpuscular Pdvnzl9277-95-17 06:09:00* Test Item Value Reference Range Interpretation Comments Mean Corpuscular Volume (test code = 787-2) 88.0 81-99 [facility] CenterMean Corpuscular Qlrzoqpein6658-51-04 06:09:00* Test Item Value Reference Range Interpretation Comments Mean Corpuscular Hemoglobin (test code = 785-6) 29.1 28-32 [facility] CenterMean Corpuscular Hemoglobin Concent 2019-05-22 06:09:00* Test Item Value Reference Range Interpretation Comments Mean Corpuscular Hemoglobin Concent (test code = 786-4) 33.1 31-35 [facility] CenterRed Cell Distribution Xghcj9516-03-83 06:09:00* Test Item Value Reference Range Interpretation Comments Red Cell Distribution Width (test code = 66523-6) 13.6 11.7 -14.4 [facility] CenterPlatelet Lyanx9537-19-05 06:09:00* Test Item Value Reference Range Interpretation Comments Platelet Count (test code = 777-3) 182 140-360 [facility] CenterNeutrophils (%) (Auto)2019-05-22 06:09:00 * Test Item Value Reference Range Interpretation Comments Neutrophils (%) (Auto) (test code = 40505-0) 49.6 38.7-80.0 [facility] CenterLymphocytes (%) (Auto)2019-05-22 06:09:00 * Test Item Value Reference Range Interpretation Comments Lymphocytes (%) (Auto) (test code = 736-9) 37.9 18.0-39.1 [facility] CenterMonocytes (%) (Auto)2019-05-22 06:09:00* Test Item Value Reference Range Interpretation Comments Monocytes (%) (Auto) (test code = 5905-5) 6.9 4.4-11.3 [facility] CenterEosinophils (%) (Auto)2019-05-22 06:09:00 * Test Item Value Reference Range Interpretation Comments Eosinophils (%) (Auto) (test code = 713-8) 5.1 0.0-6.0 [facility] CenterBasophils (%) (Auto)2019-05-22 06:09:00* Test Item Value Reference Range Interpretation Comments Basophils (%) (Auto) (test code = 706-2) 0.3 0.0-1.0 [facility] CenterIM GRANULOCYTES %2019-05-22 06:09:00* Test Item Value Reference Range Interpretation Comments IM GRANULOCYTES % (test code = IM GRANULOCYTES %) 0.2 0.0- 1.0 [facility] CenterNeutrophils # (Auto)2019-05-22 06:09:00* Test Item Value Reference Range Interpretation Comments Neutrophils # (Auto) (test code = 751-8) 3.0 2.1-6.9 [facility] CenterLymphocytes # (Auto)2019-05-22 06:09:00* Test Item Value Reference Range Interpretation Comments Lymphocytes # (Auto) (test code = 59522-6) 2.3 1.0-3.2 [facility] CenterMonocytes # (Auto)2019-05-22 06:09:00* Test Item Value Reference Range Interpretation Comments Monocytes # (Auto) (test code = 742-7) 0.4 0.2-0.8 [facility] CenterEosinophils # (Auto)2019-05-22 06:09:00* Test Item Value Reference Range Interpretation Comments Eosinophils # (Auto) (test code = 711-2) 0.3 0.0-0.4 [facility] CenterBasophils # (Auto)2019-05-22 06:09:00* Test Item Value Reference Range Interpretation Comments Basophils # (Auto) (test code = 704-7) 0.0 0.0-0.1 [facility] CenterAbsolute Immature Granulocyte (auto 2019-05-22 06:09:00* Test Item Value Reference Range Interpretation Comments Absolute Immature Granulocyte (auto (jesus t code = Absolute Immature Granulocyte (auto) 0.01 0-0.1 [facility] CenterLDL Pivsvsadgvd0498-41-86 16:49:00* Test Item Value Reference Range Interpretation Comments LDL Cholesterol (test code = 2089-1) 118 60-130 [facility] CenterHDL Nmxyulielwf1597-08-97 16:49:00* Test Item Value Reference Range Interpretation Comments HDL Cholesterol (test code = 2085-9) 47 40-60 [facility] CenterCholesterol/HDL Viqtj4638-38-93 16:49:00 * Test Item Value Reference Range Interpretation Comments Cholesterol/HDL Ratio (test code = 9830-1) 4.3 3.0-3.6 H [facility] CenterLDL Hrnsjhzenya3174-98-98 16:49:00* Test Item Value Reference Range Interpretation Comments LDL Cholesterol (test code = 2089-1) 118 60-130 [facility] CenterHDL Oshvssnktwd4178-73-73 16:49:00* Test Item Value Reference Range Interpretation Comments HDL Cholesterol (test code = 2085-9) 47 40-60 [facility] CenterCholesterol/HDL Agmhc3219-12-83 16:49:00 * Test Item Value Reference Range Interpretation Comments Cholesterol/HDL Ratio (test code = 9830-1) 4.3 3.0-3.6 H [facility] CenterB-Type Natriuretic Qspivxr6187-13-26 14:05:00* Test Item Value Reference Range Interpretation Comments B-Type Natriuretic Peptide (test code = 86452-1) 41.4 0-100 [facility] CenterThyroid Stimulating Hormone (TSH) 2019-05-21 14:05:00* Test Item Value Reference Range Interpretation Comments Thyroid Stimulating Hormone (TSH) (test code = 29222-6) 3.405 0.350-4.940 [facility] CenterB-Type Natriuretic Dwpjevp0985-33-24 14:05:00* Test Item Value Reference Range Interpretation Comments B-Type Natriuretic Peptide (test code = 61432-9) 41.4 0-100 [facility] CenterThyroid Stimulating Hormone (TSH) 2019-05-21 14:05:00* Test Item Value Reference Range Interpretation Comments Thyroid Stimulating Hormone (TSH) (test code = 94476-2) 3.405 0.350-4.940 [facility] Hospitaltress Test - Treadmill AKEP5908-02-78 13:30:00 [facility] [address] [place] [address] Patient Name : SASHA POPE MR #: [id number] : 1965 Age/Sex: 54/F Adm Physician : CIRO HERNANDEZ MD Admit Date : 05/20/19 Location : [facility] Room/Bed : [facility] REPORT: EXERCISE STRESS TEST DATE OF STUDY: 05/21/2019 12:08:00 ECHO COMPLETE (ECHOCARDIOGRAM) TITLE OF THE PROCEDURE: Cardiac stress test. TECHN ICAL DETAILS: The target heart rate is at 140 per minute. RESULTS: 1. The patient exercised for a total of 6 minute and 35 seconds. 2. Heart rate i ncreased from 60 to 140 per minute. 3. Shortness of breath. No chest pain. 4. Blood pressure increased from 125/68 to 151/105. 5. ST-segment depression, greater than 1 millivolt noted in leads 2, 3, AVF, and V6. IMPRESSION: Eq uivocal stress test with no chest pain, only shortness of breath. EKG changes noted in 2, 3, AVF and V6. Clinical correlation recommended. The patient not having typical angina. Chest pain can be observed on medication and re- evaluate depending on her symptoms. All this discussed and explained to the p atient at length. Questions are answered. MD CARRIE Cruz/RACHELL /[id number] Signature Date Dictated By: OTTO STACY MD Transcribed By: RACHELL on 07/24/19 < Electronically signed by OTTO STACY MD><<Signature on File>>07/28/19 1219 COPY TO: Triglycerides Yiatu1058-23-46 12:37:00* Test Item Value Reference Range Interpretation Comments Triglycerides Level (test code = 2571-8) 195 0-149 H [facility] CenterCholesterol Istkg1657-09-77 12:37:00* Test Item Value Reference Range Interpretation Comments Cholesterol Level (test code = 2093-3) 204 0-199 H Less than 200 mg/dL Low Ymlw320 - 239 mg/dL Borderline Ogbv443 m g/dl and greater High Risk [facility] CenterTriglycerides Bdahs8254-45-60 12:37:00* Test Item Value Reference Range Interpretation Comments Triglycerides Level (test code = 2571-8) 195 0-149 H [facility] CenterCholesterol Etron6386-72-78 12:37:00* Test Item Value Reference Range Interpretation Comments Cholesterol Level (test code = 2093-3) 204 0-199 H Less than 200 mg/dL Low Ydrk142 - 239 mg/dL Borderline Ibxd898 m g/dl and greater High Risk [facility] CenterCT CHEST WITH DHOFQHDG-SKJV4810-72-05 19:19:00 [facility] [address] [place] [address] Patient Name: SASHA POPE MR #: [id number] : Age/Sex: 54/F Req #: [id number] Adm Physician: Ordered by: MARIA ISABEL ARIAS DO Report #: [id number] Location: [facility] Room/Bed: Procedure: 1005-000 7 HOPD/CT CHEST WITH CONTRAST-HOPD Exam Date: 05/20/19 Exam Time: 1850 REPORT STATUS: S igned EXAM: CT Chest WITH contrast (PE Protocol) INDICATION: Short of breat h COMPARISON: None TECHNIQUE: Chest was scanned utilizing a multi detector helical scanner from the lung apex through the level of the diaphragm after administration of IV contrast. Thin section reconstructions were obtain ed with special concentration on the pulmonary arteries. Coronal and sagittal reformations were obtained. Pulmonary embolism protocol was performed. IV CONTRAST: 100 mL of Isovue 370 COMPLICATIONS: None RADIATION DOSE: Total DLP: 333 mGy*cm Estimated effective dose: (DLP x 0.014 x si ze factor) mSv CTDIvol has been reviewed. It is below the limits set by [employer]men jenn[employer] Radiation Protocol Committee (RPC). Dose modulation, iterative recon struction, and/or weight based adjustment of the mA/kV was utilized to reduce the radiation dose to as low as reasonably achievable. FINDINGS: LI SHANNEN/ TUBES: None. LUNGS AND AIRWAYS: No filling defect is identified within the pulmonary arteries to the segmental level. Mild bibasilar atelectasis. El evated right hemidiaphragm with mild low right lung volume. Airways are tasneem l. PLEURA: The pleural spaces are clear. HEART AND MEDIASTINUM: Focal subcentimeter calcific nodule in the right thyroid lobe. No mediastinal, hil ar or axillary lymphadenopathy. The heart is normal in size. There is no rocio cardial effusion. . The main pulmonary artery and thoracic aorta are nondi lated. UPPER ABDOMEN: Cholecystectomy clips. BONES: Bone island in th e right humeral head. The visualized bony thorax is within normal limits. SOFT TISSUES: Loop recorder in the left chest soft tissues.. IMPRESSION: No pulmonary emboli. Calcific nodule in the right thyroid lobe. Recommend nonemergent thyroid ultrasound for further evaluation. Signed by: Gurwinder Jeff DO on 05/20/2019 7:26 PM Dictated By: GURWINDER JEFF DO Elect ronically Signed By: GURWINDER JEFF DO on 05/20/191925 Transcribed By: JEWEL BANDA on 05/20/191925 COPY TO: MARIA ISABEL ARIAS DO Urinalysis with Culture, if gbbwrppnw9860-91-43 00:48:50* Test Item Value Reference Range Interpretation Comments UA Color (test code = UA Color) STRAW Yellow UA Appear (test code = UA Appear) CLEAR Clear UA pH (test code = UA pH) 5 N UA Spec Grav (test code = UA Spec Grav) 1.048 1.001-1.035 H UA Glucose (test code = UA Glucose) NEG Negative UA Bili (test code = UA Bili) NEG Negative UA Ketones (test code = UA Ketones) NEG Negative UA Blood (test code = UA Blood) NEG Negative UA Protein (test code = UA Protein) NEG Negative UA Urobilinogen (test code = UA Urobilinogen) 0.2 mg/dL N UA Nitrite (test code = UA Nitrite) NEG Negative UA Leuk Est (test code = UA Leuk Est) NEG Negative UA Micro Ind? (test code = UA Micro Ind?) Not Indicated Not Indicat ed Result created by rule GL_SJM_UA_MICRO_IND CT Chest w/ Nrikfrxv1383-46-11 00:21:51Patient: SASHA POPE Date/Time04/26/2019 23:21 CDTReason for ExamDyspneaReportLOCATION: [id number]: 54-year-old female, complains of dyspneaCOMMENT:Axial CT imaging of this patient's chest was obtained from the thoracic inlet through the upper abdomen with IV contrast. Coronal and sagittal reconstructed images were included.One or more of the following dose reduction techniques were used: Automated exposure control, adjustment of the mA and/or kV according the patient size, and/or utilization of iterative reconstruction technique.DLP: Radiation dose details were described in the accompanying CT study of the thoracic spine lumbar spine.CONTRAST: 100 mL of Omnipaque 300 nonionic contrast was injected into a left arm vein. Serum creatinine level was 0.7 and the estimated GFR was greater than 60 mL/m.FINDINGS:The cardiac silhouette and vascular anatomy is unremarkable. There is no adenopathy in the chest. The thoracic and the chest wall are unremarkable.The visualized upper abdomen exhibits no acute findings.The lungs are clear.IMPRESSION:Unremarkable CT examination of the chest with contrast. Final Dictated by: MD Colmenares Robert LDictated DT/TM: 04/27/2019 0:19 amSigned by: MD Colmenares Rob ert LSigned (Electronic Signature): 04/27/2019 0:21 amComprehensive Metabolic Rpduj0478-07-28 00:05:26* Test Item Value Reference Range Interpretation Comments Sodium Level (test code = Sodium Level) 138.0 mmol/L 135.0-145.0 Potassium Level (test code = Potassium Level) 4.3 mmol/L 3.5-5.1 Chloride Level (test code = Chloride Level) 103 mmol/L 98-105 CO2 (test code = CO2) 24 mmol/L 22-29 Anion Gap (test code = Anion Gap) 11 mmol/L 7-16 BUN (test code = BUN) 20.40 mg/dL 6.00-20.00 H Creatinine Level (test code = Creatinine Level) 0.60 mg/dL 0.50-0 .90 BUN/Creat Ratio (test code = BUN/Creat Ratio) 34 N Glucose Level (test code = Glucose Level) 95 mg/dL 70-115 Calcium Level (test code = Calcium Level) 9.1 mg/dL 8.3-10.5 Alk Phos (test code = Alk Phos) 89 U/L 35-104 Bilirubin Total (test code = Bilirubin Total) 0.2 mg/dL 0.1-0.9 Albumin Level (test code = Albumin Level) 4.1 g/dL 3.5-5.2 Protein Total (test code = Protein Total) 7.8 g/dL 6.4-8.3 ALT (test code = ALT) 61 U/L 1-33 H AST (test code = AST) 44 U/L 1-32 H Globulin (test code = Globulin) 3.7 g/dL 2.9-3.1 H A/G Ratio (test code = A/G Ratio) 1.1 ratio N Comprehensive Metabolic Cirmp4338-02-59 00:05:26* Test Item Value Reference Range Interpretation Comments Sodium Level (test code = Sodium Level) 138.0 mmol/L 135.0-145.0 Potassium Level (test code = Potassium Level) 4.3 mmol/L 3.5-5.1 Chloride Level (test code = Chloride Level) 103 mmol/L 98-105 CO2 (test code = CO2) 24 mmol/L 22-29 Anion Gap (test code = Anion Gap) 11 mmol/L 7-16 BUN (test code = BUN) 20.40 mg/dL 6.00-20.00 H Creatinine Level (test code = Creatinine Level) 0.60 mg/dL 0.50-0 .90 BUN/Creat Ratio (test code = BUN/Creat Ratio) 34 N Glucose Level (test code = Glucose Level) 95 mg/dL 70-115 Calcium Level (test code = Calcium Level) 9.1 mg/dL 8.3-10.5 Alk Phos (test code = Alk Phos) 89 U/L 35-104 Bilirubin Total (test code = Bilirubin Total) 0.2 mg/dL 0.1-0.9 Albumin Level (test code = Albumin Level) 4.1 g/dL 3.5-5.2 Protein Total (test code = Protein Total) 7.8 g/dL 6.4-8.3 ALT (test code = ALT) 61 U/L 1-33 H AST (test code = AST) 44 U/L 1-32 H Globulin (test code = Globulin) 3.7 g/dL 2.9-3.1 H A/G Ratio (test code = A/G Ratio) 1.1 ratio N eGFR AA (test code = eGFR AA) >60 mL/min/1.73 m2 N eGFR (estimated Glomerular Filtration Rate) is an estimated value, calculated from the patient's serum creatinine using the MDRD equation. It is NOT the patient's actual GFR. The eGFR provides a more clinically useful measure of kidney disease than serum creatinine alone.This calculation takes sex and race into account, if the information is provided. If the race is not provided, and the patient is -[place], multiply by 1.212. If sex is not provided, and the patient is female, multiply by 0.742. Results for patients <18 years of age have not been validated by the MDRD study and should be interpreted with caution. eGFR Result Interpretation:eGFR > or = 60 is in the Normal RangeeGFR < 60 may mean kidney diseaseeGFR < 15 may mean kidney failure Ranges recommended by the National Kidney Foundation, http://nkdep.nih.gov eGFR Non-AA (test code = eGFR Non-AA) >60.00 mL/min/1.73 m2 N eGFR (estimated Glomerular Filtration Rate) is an estimated value, calculated from the patient's serum creatinine using the MDRD equation. It is NOT the patient's actual GFR. The eGFR provides a more clinically useful measure of kidney disease than serum creatinine alone.This calculation takes sex and race into account, if the information is provided. If the race is not provided, and the patient is -[place], multiply by 1.212. If sex is not provided, and the patient is female, multiply by 0.742. Results for patients <18 years of age have not been validated by the MDRD study and should be interpreted with caution. eGFR Result Interpretation:eGFR > or = 60 is in the Normal RangeeGFR < 60 may mean kidney diseaseeGFR < 15 may mean kidney failure Ranges recommended by the National Kidney Foundation, http://nkdep.nih.gov Comprehensive Metabolic Lpnxj1625-35-23 00:05:26* Test Item Value Reference Range Interpretation Comments Sodium Level (test code = Sodium Level) 138.0 mmol/L 135.0-145.0 Potassium Level (test code = Potassium Level) 4.3 mmol/L 3.5-5.1 Chloride Level (test code = Chloride Level) 103 mmol/L 98-105 CO2 (test code = CO2) 24 mmol/L 22-29 Anion Gap (test code = Anion Gap) 11 mmol/L 7-16 BUN (test code = BUN) 20.40 mg/dL 6.00-20.00 H Creatinine Level (test code = Creatinine Level) 0.60 mg/dL 0.50-0 .90 BUN/Creat Ratio (test code = BUN/Creat Ratio) 34 N Glucose Level (test code = Glucose Level) 95 mg/dL 70-115 Calcium Level (test code = Calcium Level) 9.1 mg/dL 8.3-10.5 Alk Phos (test code = Alk Phos) 89 U/L 35-104 Bilirubin Total (test code = Bilirubin Total) 0.2 mg/dL 0.1-0.9 Albumin Level (test code = Albumin Level) 4.1 g/dL 3.5-5.2 Protein Total (test code = Protein Total) 7.8 g/dL 6.4-8.3 ALT (test code = ALT) 61 U/L 1-33 H AST (test code = AST) 44 U/L 1-32 H Globulin (test code = Globulin) 3.7 g/dL 2.9-3.1 H A/G Ratio (test code = A/G Ratio) 1.1 ratio N eGFR AA (test code = eGFR AA) >60 mL/min/1.73 m2 N eGFR (estimated Glomerular Filtration Rate) is an estimated value, calculated from the patient's serum creatinine using the MDRD equation. It is NOT the patient's actual GFR. The eGFR provides a more clinically useful measure of kidney disease than serum creatinine alone.This calculation takes sex and race into account, if the information is provided. If the race is not provided, and the patient is -[place], multiply by 1.212. If sex is not provided, and the patient is female, multiply by 0.742. Results for patients <18 years of age have not been validated by the MDRD study and should be interpreted with caution. eGFR Result Interpretation:eGFR > or = 60 is in the Normal RangeeGFR < 60 may mean kidney diseaseeGFR < 15 may mean kidney failure Ranges recommended by the National Kidney Foundation, http://nkdep.nih.gov eGFR Non-AA (test code = eGFR Non-AA) >60.00 mL/min/1.73 m2 N eGFR (estimated Glomerular Filtration Rate) is an estimated value, calculated from the patient's serum creatinine using the MDRD equation. It is NOT the patient's actual GFR. The eGFR provides a more clinically useful measure of kidney disease than serum creatinine alone.This calculation takes sex and race into account, if the information is provided. If the race is not provided, and the patient is -[place], multiply by 1.212. If sex is not provided, and the patient is female, multiply by 0.742. Results for patients <18 years of age have not been validated by the MDRD study and should be interpreted with caution. eGFR Result Interpretation:eGFR > or = 60 is in the Normal RangeeGFR < 60 may mean kidney diseaseeGFR < 15 may mean kidney failure Ranges recommended by the National Kidney Foundation, http://nkdep.nih.gov CT Spine Thoracic w/ Ogzphwue2432-61-21 23:56:08Patient: SASHA POPE Date/Time04/26/2019 23:21 CDTReason for ExamRule out mets;Back painReportLOCATION: [id number]: 54-year-old female presents with back pain. Clinical concern is metastatic disease.COMMENT:Axial CT imaging of this patient's thoracic spine and lumbar spine was obtained. Soft tissue and bone the images were submitted in the axial plane. Coronal and sagittal reconstructions were included.One or more of the following dose reconstruction techniques were used: Automatic exposure control, adjustment of the mA and/or kv according the patient size, and/or utilization of iterative reconstruction technique.DLP: 720.2 mGy-cmFINDINGS:T-SPINE CT:The skeleton is intact and the alignment is anatomic. The vertebral disks, posterior facet joints, and posterior elements exhibit no acute findings. The paraspinous soft tissues are unremarkable.L-SPINE CT:The lumbar skeleton is intact and the alignment is anatomic. Intervertebral disc, posterior facet joints, and the p osterior elements are unremarkable. The paraspinous musculature is unremarkable. The visualized bony pelvis and sacrum are intact.IMPRESSION:Unremarkable CT exa minations of this patient's thoracic spine and lumbar spine. Final Dic tated by: MD Colmenares Robert LDictated DT/TM: 04/26/2019 11:54 pmSigned by: Neena cote MD, Robert LSigned (Electronic Signature): 04/26/2019 11:56 pmCT Spine Lumbar w/ Dfrwvvlz2388-12-49 23:56:08Patient: SASHA POPE Date/Time04/26/2019 23:21 CDTReason for ExamRule out at mets;Back painReportLOCATION: [id number]: 54-year-old female presents with back pain. Clinical concern is metastatic disease.COMMENT:Axial CT imaging of this patient's thoracic spine and lumbar spine was obtained. Soft tissue and bone the images were submitted in the axial plane. Coronal and sagittal reconstructions were included.One or more of the following dose reconstruction techniques were used: Automatic exposure control, adjustment of the mA and/or kv according the patient size, and/or utilization of iterative reconstruction technique.DLP: 720.2 mGy-cmFINDINGS:T-SPINE CT:The skeleton is intact and the alignment is anatomic. The vertebral disks, posterior facet joints, and posterior elements exhibit no acute findings. The paraspinous soft tissues are unremarkable.L-SPINE CT:The lumbar skeleton is intact and the alignment is anatomic. Intervertebral disc, posterior facet joints, and the posterior elements are unremarkable. The paraspinous musculature is unremarkab le. The visualized bony pelvis and sacrum are intact.IMPRESSION:Unremarkable CT examinations of this patient's thoracic spine and lumbar spine. Final Dictated by: MD Colmenares Robert LDictated DT/TM: 04/26/2019 11:54 pmSigned by: MD Colmenares Robert LSigned (Electronic Signature): 04/26/2019 11:56 pm Prothrombin Time and [id number] 23:34:42* Test Item Value Reference Range Interpretation Comments Prothrombin Time (test code = Prothrombin Time) 11.7 seconds 9.8-13 .4 INR (test code = INR) 1.0 ratio 0.6-1.2 Partial Thromboplastin [id number] 23:34:42* Test Item Value Reference Range Interpretation Comments Partial Thromboplastin Time (test code = Partial Throm boplastin Time) 31.30 seconds 24.39-37.25 Comprehensive Metabolic [id number] 22:45:31* Test Item Value Reference Range Interpretation Comments Sodium Level (test code = Sodium Level) 136.0 mmol/L 135.0-145.0 Potassium Level (test code = Potassium Level) see comment mmol/L 3. 5-5.1 N K=5.0AST=62Specimen slightly hemolyzed; K and AST may be falsely elevated. Suggest verify by recollect.alessandra blankenship Chloride Level (test code = Chloride Level) 102 mmol/L 98-105 CO2 (test code = CO2) 21 mmol/L 22-29 L Anion Gap (test code = Anion Gap) 13 mmol/L 7-16 BUN (test code = BUN) 20.60 mg/dL 6.00-20.00 H Creatinine Level (test code = Creatinine Level) 0.70 mg/dL 0.50-0 .90 BUN/Creat Ratio (test code = BUN/Creat Ratio) 29 N Glucose Level (test code = Glucose Level) 100 mg/dL 70-115 Calcium Level (test code = Calcium Level) 8.9 mg/dL 8.3-10.5 Alk Phos (test code = Alk Phos) 92 U/L 35-104 Bilirubin Total (test code = Bilirubin Total) 0.2 mg/dL 0.1-0.9 Albumin Level (test code = Albumin Level) 4.3 g/dL 3.5-5.2 Protein Total (test code = Protein Total) 8.2 g/dL 6.4-8.3 ALT (test code = ALT) 65 U/L 1-33 H AST (test code = AST) see comment U/L 1-32 N K=5 .0AST=62Specimen slightly hemolyzed; K and AST may be falsely elevated. Suggest verify by recollect.alessandra ler Globulin (test code = Globulin) 3.9 g/dL 2.9-3.1 H A/G Ratio (test code = A/G Ratio) 1.1 ratio N Comprehensive Metabolic [id number] 22:45:31* Test Item Value Reference Range Interpretation Comments Sodium Level (test code = Sodium Level) 136.0 mmol/L 135.0-145.0 Potassium Level (test code = Potassium Level) see comment mmol/L 3. 5-5.1 N K=5.0AST=62Specimen slightly hemolyzed; K and AST may be falsely elevated. Suggest verify by recollect.alessandra ler Chloride Level (test code = Chloride Level) 102 mmol/L 98-105 CO2 (test code = CO2) 21 mmol/L 22-29 L Anion Gap (test code = Anion Gap) 13 mmol/L 7-16 BUN (test code = BUN) 20.60 mg/dL 6.00-20.00 H Creatinine Level (test code = Creatinine Level) 0.70 mg/dL 0.50-0 .90 BUN/Creat Ratio (test code = BUN/Creat Ratio) 29 N Glucose Level (test code = Glucose Level) 100 mg/dL 70-115 Calcium Level (test code = Calcium Level) 8.9 mg/dL 8.3-10.5 Alk Phos (test code = Alk Phos) 92 U/L 35-104 Bilirubin Total (test code = Bilirubin Total) 0.2 mg/dL 0.1-0.9 Albumin Level (test code = Albumin Level) 4.3 g/dL 3.5-5.2 Protein Total (test code = Protein Total) 8.2 g/dL 6.4-8.3 ALT (test code = ALT) 65 U/L 1-33 H AST (test code = AST) see comment U/L 1-32 N K=5 .0AST=62Specimen slightly hemolyzed; K and AST may be falsely elevated. Suggest verify by recollect.alessandra ler Globulin (test code = Globulin) 3.9 g/dL 2.9-3.1 H A/G Ratio (test code = A/G Ratio) 1.1 ratio N eGFR AA (test code = eGFR AA) >60 mL/min/1.73 m2 N eGFR (estimated Glomerular Filtration Rate) is an estimated value, calculated from the patient's serum creatinine using the MDRD equation. It is NOT the patient's actual GFR. The eGFR provides a more clinically useful measure of kidney disease than serum creatinine alone.This calculation takes sex and race into account, if the information is provided. If the race is not provided, and the patient is -[place], multiply by 1.212. If sex is not provided, and the patient is female, multiply by 0.742. Results for patients <18 years of age have not been validated by the MDRD study and should be interpreted with caution. eGFR Result Interpretation:eGFR > or = 60 is in the Normal RangeeGFR < 60 may mean kidney diseaseeGFR < 15 may mean kidney failure Ranges recommended by the National Kidney Foundation, http://nkdep.nih.gov Comprehensive Metabolic Ozciv8935-92-92 22:45:31* Test Item Value Reference Range Interpretation Comments Sodium Level (test code = Sodium Level) 136.0 mmol/L 135.0-145.0 Potassium Level (test code = Potassium Level) see comment mmol/L 3. 5-5.1 N K=5.0AST=62Specimen slightly hemolyzed; K and AST may be falsely elevated. Suggest verify by recollect.alessandra blankenship Chloride Level (test code = Chloride Level) 102 mmol/L 98-105 CO2 (test code = CO2) 21 mmol/L 22-29 L Anion Gap (test code = Anion Gap) 13 mmol/L 7-16 BUN (test code = BUN) 20.60 mg/dL 6.00-20.00 H Creatinine Level (test code = Creatinine Level) 0.70 mg/dL 0.50-0 .90 BUN/Creat Ratio (test code = BUN/Creat Ratio) 29 N Glucose Level (test code = Glucose Level) 100 mg/dL 70-115 Calcium Level (test code = Calcium Level) 8.9 mg/dL 8.3-10.5 Alk Phos (test code = Alk Phos) 92 U/L 35-104 Bilirubin Total (test code = Bilirubin Total) 0.2 mg/dL 0.1-0.9 Albumin Level (test code = Albumin Level) 4.3 g/dL 3.5-5.2 Protein Total (test code = Protein Total) 8.2 g/dL 6.4-8.3 ALT (test code = ALT) 65 U/L 1-33 H AST (test code = AST) see comment U/L 1-32 N K=5 .0AST=62Specimen slightly hemolyzed; K and AST may be falsely elevated. Suggest verify by recollect.alessandra ler Globulin (test code = Globulin) 3.9 g/dL 2.9-3.1 H A/G Ratio (test code = A/G Ratio) 1.1 ratio N eGFR AA (test code = eGFR AA) >60 mL/min/1.73 m2 N eGFR (estimated Glomerular Filtration Rate) is an estimated value, calculated from the patient's serum creatinine using the MDRD equation. It is NOT the patient's actual GFR. The eGFR provides a more clinically useful measure of kidney disease than serum creatinine alone.This calculation takes sex and race into account, if the information is provided. If the race is not provided, and the patient is -[place], multiply by 1.212. If sex is not provided, and the patient is female, multiply by 0.742. Results for patients <18 years of age have not been validated by the MDRD study and should be interpreted with caution. eGFR Result Interpretation:eGFR > or = 60 is in the Normal RangeeGFR < 60 may mean kidney diseaseeGFR < 15 may mean kidney failure Ranges recommended by the National Kidney Foundation, http://nkdep.nih.gov eGFR Non-AA (test code = eGFR Non-AA) >60.00 mL/min/1.73 m2 N eGFR (estimated Glomerular Filtration Rate) is an estimated value, calculated from the patient's serum creatinine using the MDRD equation. It is NOT the patient's actual GFR. The eGFR provides a more clinically useful measure of kidney disease than serum creatinine alone.This calculation takes sex and race into account, if the information is provided. If the race is not provided, and the patient is -[place], multiply by 1.212. If sex is not provided, and the patient is female, multiply by 0.742. Results for patients <18 years of age have not been validated by the MDRD study and should be interpreted with caution. eGFR Result Interpretation:eGFR > or = 60 is in the Normal RangeeGFR < 60 may mean kidney diseaseeGFR < 15 may mean kidney failure Ranges recommended by the National Kidney Foundation, http://nkdep.nih.gov Complete Blood Count with Kqqabpevdznv3234-33-03 22:18:35* Test Item Value Reference Range Interpretation Comments WBC (test code = WBC) 8.6 x10 4.4-10.5 RBC (test code = RBC) 4.46 x10 3.75-5.20 Hgb (test code = Hgb) 13.3 g/dL 12.2-14.8 Hct (test code = Hct) 40.3 % 36.5-44.4 MCV (test code = MCV) 90.40 fL 80.00-100.00 MCHC (test code = MCHC) 33.00 g/dL 32.00-37.50 RDW CV (test code = RDW CV) 13.4 % 11.5-14.5 MCH (test code = MCH) 29.8 pg 27.0-32.5 Platelets (test code = Platelets) 213.0 x10 140.0-440.0 MPV (test code = MPV) 9.4 fL N Slide Review (test code = Slide Review) Auto Auto Result created by GL_SJM_[email or web address]_AUTO nRBC (test code = nRBC) 0 N NRBC Abs (test code = NRBC Abs) 0.00 x10 N IPF (test code = IPF) 0 % N Automated [id number] 22:18:35* Test Item Value Reference Range Interpretation Comments Neutro Auto (test code = Neutro Auto) 58.5 % 36.0-70.0 Lymph Auto (test code = Lymph Auto) 32.2 % 12.0-44.0 Hardy Auto (test code = Hardy Auto) 5.7 % 0.0-11.0 Eos, Auto (test code = Eos, Auto) 2.9 % 0.0-7.0 Basophil Auto (test code = Basophil Auto) 0.5 % 0.0-2.0 Neutro Absolute (test code = Neutro Absolute) 5.0 x10 1.6-7.4 Lymph Absolute (test code = Lymph Absolute) 2.76 x10 .50-4.60 Hardy Absolute (test code = Hardy Absolute) .49 x10 .00-1.20 Eos Absolute (test code = Eos Absolute) 0.25 x10 0.00-0.74 Baso Absolute (test code = Baso Absolute) 0.04 x10 0.00-0.21 IG [id number] 22:18:35* Test Item Value Reference Range Interpretation Comments IG (test code = IG) 0.2 % 0.0-5.0 IG Abs (test code = IG Abs) 0 x10 N XR Chest 2 [id number] 20:50:04Patient: SASHA POPE Date/Time04/26/2019 20:43 CDTReason for ExamShortness of breathReportHISTORY: Shortness of breathLocation code: E64RDWC: 2 VIEW CHEST X-RAY.COMPARISON: NoneCOMMENT: PA and lateral views are provided. No acute infiltrate or effusion is seen. Cardiomediastinal silhouette is within normal limits. No acute bony abnormalities.IMPRESSION: No acute disease. Final Dictated by: MD Umana Roman PDictated DT/TM: 04/26/2019 8:49 pmSigned by: MD Umana Roman PSigned (Electronic Signature): 04/26/2019 8:50 pmCT ABD/PEL WO [id number]-[id number] 13:27:00 [place] [address] Patient Name: SASHA POPE MR #: [id number] : Age/Sex: 54/F Req #: [id number] Adm Physician: Ordered by: DYLAN ARTIS MD Report #: [id number] Location: [facility] Room/Bed: Procedure: [id number] HOPD/CT ABD/PEL WO CONTRAST-HOPD Exam Date: 04/23/19 Exam Time: 1227 REPORT STATUS: Signed EXAMINATION: CT of the abdomen and pelvis without contrast. GUILLE HNIQUE: Spiral CT images of the abdomen and pelvis were performed from the el ng bases to the lesser trochanters without administration of intravenous contr ast. Coronal and sagittal reformatted images were obtained. Renal stone protoc ol was performed. COMPARISON: CT abdomen/pelvis 12/02/2018. CLINICAL HISTORY:Bilateral flank pain. DISCUSSION: ABDOMEN/PELVIS: LO WER THORAX: . Patchy dependent atelectasis. HEPATOBILIARY:No evidence of fo cierra hepatic lesion. No intrahepatic biliary dilatation. Status post cholecyste ctomy. No evidence of biliary dilatation. SPLEEN: No splenomegaly. DURANT CREAS: No evidence of focal masses or ductal dilatation. ADRENALS: No adre nal nodules. KIDNEYS/URETERS: Postsurgical changes of the upper pole of the left kidney. No definite mass. No evidence of hydronephrosis or stone. P ELVIC ORGANS/BLADDER: Urinary bladder is normal. Status post hysterectomy. PERITONEUM/RETROPERITONEUM: No ascites. No pneumoperitoneum. LYMPH NODES: N o evidence of lymphadenopathy. VESSELS: Scattered mild atherosclerotic calc ifications. GI TRACT: Colonic diverticulosis without CT evidence of divert iculitis. Status post appendectomy. No evidence of bowel obstruction. BON ES AND SOFT TISSUE: No acute osseous abnormality. Postsurgical changes along t he left flank. IMPRESSION: No acute CT abnormality in the abdomen or pel vis. No evidence of nephrolithiasis. Signed by: Dr. Ishmael Kathleen MD on 04/23/2019 1:34 PM Dictated By: ISHMAEL KATHLEEN MD 133 Transcribed By: GARO on 04/23/19 1334 COPY TO: DYLAN ARTIS MD Creatine Kinase [id number] 05:43:00* Test Item Value Reference Range Interpretation Comments Creatine Kinase MB (test code = 43860-7) 1.30 0-5.0 [facility] [id number] 05:43:00* Test Item Value Reference Range Interpretation Comments Troponin I (test code = FOL2618) < 0.001 0-0.300 [facility] CenterCreatine Kinase [id number] 05:43:00* Test Item Value Reference Range Interpretation Comments Creatine Kinase MB (test code = 13770-8) 1.30 0-5.0 [facility] CenterTroponin [id number] 05:43:00* Test Item Value Reference Range Interpretation Comments Troponin I (test code = ZRQ2172) < 0.001 0-0.300 [facility] Xvgyr5773-39-01 05:36:00* Test Item Value Reference Range Interpretation Comments Sodium Level (test code = 2951-2) 138 136-145 [facility] CenterPotassium Krhjo0525-06-13 05:36:00* Test Item Value Reference Range Interpretation Comments Potassium Level (test code = 2823-3) 4.0 3.5-5.1 [facility] CenterChloride Tpuix2955-96-50 05:36:00* Test Item Value Reference Range Interpretation Comments Chloride Level (test code = 2075-0) 104 98-107 [facility] CenterCarbon Dioxide Vdcbz0782-40-32 05:36:00* Test Item Value Reference Range Interpretation Comments Carbon Dioxide Level (test code = 2028-9) 25 22-29 [facility] CenterAnion Oik3984-15-63 05:36:00* Test Item Value Reference Range Interpretation Comments Anion Gap (test code = 30273-2) 13.0 8-16 [facility] CenterBlood Urea Vvokdlcm0931-50-75 05:36:00* Test Item Value Reference Range Interpretation Comments Blood Urea Nitrogen (test code = 3094-0) 16 7-26 [facility] CenterCreatinine2019-07-10 05:36:00* Test Item Value Reference Range Interpretation Comments Creatinine (test code = 2160-0) 0.73 0.57-1.11 [facility] CenterBUN/Creatinine Gldzz5527-66-34 05:36:00* Test Item Value Reference Range Interpretation Comments BUN/Creatinine Ratio (test code = 3097-3) 22 6-25 [facility] CenterEstimat Glomerular Filtration Rate 2019-02-22 05:36:00* Test Item Value Reference Range Interpretation Comments Estimat Glomerular Filtration Rate (test code = 454039730) > 60 >60 Ranges were taken from the National Kidney Disease Education Program and the [facility] Foundation literature.Reference ranges:60 or greater: Qbjcdi90-78 ( for 3 consecutive months): Chronic kidney disease 15 or less: Kidney failureMethodist Richardson Medical CenterGlucose Ubdwj5154-19-35 05:36:00* Test Item Value Reference Range Interpretation Comments Glucose Level (test code = ACZ1294) 99 74-118 [facility] CenterCalcium Hqgqd0885-61-94 05:36:00* Test Item Value Reference Range Interpretation Comments Calcium Level (test code = 88423-8) 9.5 8.4-10.2 [facility] CenterTotal Ihjgkcrmo7515-22-41 05:36:00* Test Item Value Reference Range Interpretation Comments Total Bilirubin (test code = 1975-2) 0.4 0.2-1.2 [facility] CenterAspartate Amino Transf (AST/SGOT) 2019-02-22 05:36:00* Test Item Value Reference Range Interpretation Comments Aspartate Amino Transf (AST/SGOT) (test code = Aspartate Amino Transf (AST/SGOT)) 46 5-34 H [facility] CenterAlanine Aminotransferase (ALT/SGPT) 2019-02-22 05:36:00* Test Item Value Reference Range Interpretation Comments Alanine Aminotransferase (ALT/SGPT) (test code = 1742-6) 61 0-55 H [facility] CenterTotal Rmgahzp2019-06-30 05:36:00* Test Item Value Reference Range Interpretation Comments Total Protein (test code = 2885-2) 8.0 6.5-8.1 [facility] CenterAlbumin2019-07-10 05:36:00* Test Item Value Reference Range Interpretation Comments Albumin (test code = 1751-7) 3.6 3.5-5.0 [facility] CenterGlobulin2019-07-10 05:36:00* Test Item Value Reference Range Interpretation Comments Globulin (test code = 95877-8) 4.4 2.3-3.5 H [facility] CenterAlbumin/Globulin Eyrzb9696-38-43 05:36:00 * Test Item Value Reference Range Interpretation Comments Albumin/Globulin Ratio (test code = 1759-0) 0.8 0.8-2.0 [facility] CenterAlkaline Ozigygcsxtx2069-89-34 05:36:00* Test Item Value Reference Range Interpretation Comments Alkaline Phosphatase (test code = 6768-6) 97 40-150 [facility] CenterCreatine Jbyapw7344-18-68 05:36:00* Test Item Value Reference Range Interpretation Comments Creatine Kinase (test code = 2157-6) 80 29-168 [facility]odium Liiwf5471-75-66 05:36:00* Test Item Value Reference Range Interpretation Comments Sodium Level (test code = 2951-2) 138 136-145 [facility] CenterPotassium Kngod8557-22-26 05:36:00* Test Item Value Reference Range Interpretation Comments Potassium Level (test code = 2823-3) 4.0 3.5-5.1 [facility] CenterChloride Meohf0685-60-59 05:36:00* Test Item Value Reference Range Interpretation Comments Chloride Level (test code = 2075-0) 104 98-107 [facility] CenterCarbon Dioxide Yenls5946-11-99 05:36:00* Test Item Value Reference Range Interpretation Comments Carbon Dioxide Level (test code = 2028-9) 25 22-29 [facility] CenterAnion Ihz5518-24-10 05:36:00* Test Item Value Reference Range Interpretation Comments Anion Gap (test code = 15504-3) 13.0 8-16 [facility] CenterBlood Urea Dpczidlb6842-19-11 05:36:00* Test Item Value Reference Range Interpretation Comments Blood Urea Nitrogen (test code = 3094-0) 16 7-26 [facility] CenterCreatinine2019-07-10 05:36:00* Test Item Value Reference Range Interpretation Comments Creatinine (test code = 2160-0) 0.73 0.57-1.11 [facility] CenterBUN/Creatinine Xvozb5163-65-08 05:36:00* Test Item Value Reference Range Interpretation Comments BUN/Creatinine Ratio (test code = 3097-3) 22 6-25 [facility] CenterEstimat Glomerular Filtration Rate 2019-02-22 05:36:00* Test Item Value Reference Range Interpretation Comments Estimat Glomerular Filtration Rate (test code = 101366698) > 60 >60 Ranges were taken from the National Kidney Disease Education Program and the [facility] literature.Reference ranges:60 or greater: Ohxbdw16-53 ( for 3 consecutive months): Chronic kidney disease 15 or less: Kidney failureMethodist Richardson Medical CenterGlucose Vuuer1393-55-96 05:36:00* Test Item Value Reference Range Interpretation Comments Glucose Level (test code = CMH0649) 99 74-118 [facility] CenterCalcium Fudbh8782-30-35 05:36:00* Test Item Value Reference Range Interpretation Comments Calcium Level (test code = 51114-6) 9.5 8.4-10.2 [facility] CenterTotal Klfcmckwb9187-92-96 05:36:00* Test Item Value Reference Range Interpretation Comments Total Bilirubin (test code = 1975-2) 0.4 0.2-1.2 [facility] CenterAspartate Amino Transf (AST/SGOT) 2019-02-22 05:36:00* Test Item Value Reference Range Interpretation Comments Aspartate Amino Transf (AST/SGOT) (test code = Aspartate Amino Transf (AST/SGOT)) 46 5-34 H [facility] CenterAlanine Aminotransferase (ALT/SGPT) 2019-02-22 05:36:00* Test Item Value Reference Range Interpretation Comments Alanine Aminotransferase (ALT/SGPT) (test code = 1742-6) 61 0-55 H [facility] CenterTotal Ifcfabv3560-34-32 05:36:00* Test Item Value Reference Range Interpretation Comments Total Protein (test code = 2885-2) 8.0 6.5-8.1 [facility] CenterAlbumin2019-07-10 05:36:00* Test Item Value Reference Range Interpretation Comments Albumin (test code = 1751-7) 3.6 3.5-5.0 [facility] CenterGlobulin2019-07-10 05:36:00* Test Item Value Reference Range Interpretation Comments Globulin (test code = 57812-6) 4.4 2.3-3.5 H [facility] CenterAlbumin/Globulin Gncqx5322-57-91 05:36:00 * Test Item Value Reference Range Interpretation Comments Albumin/Globulin Ratio (test code = 1759-0) 0.8 0.8-2.0 [facility] CenterAlkaline Dziamgnqazt5074-60-48 05:36:00* Test Item Value Reference Range Interpretation Comments Alkaline Phosphatase (test code = 6768-6) 97 40-150 [facility] CenterCreatine Gwuzps1530-82-68 05:36:00* Test Item Value Reference Range Interpretation Comments Creatine Kinase (test code = 2157-6) 80 29-168 [facility] CenterCHEST SINGLE (PORTABLE)2019-02-22 05:32:00 [facility] [address] [place] [address] Patient Name: SASHA POPE MR #: [id number] : 1965 Age/Sex: 54/F Req #: [id number] Adm Physician: Ordered by: ANN CHADWICK MD Report #: [id number] Location: ER Room/Bed: Procedure: [id number] DX/CHEST SINGLE (PORTABLE) Exam Date: 02/22/19 Exam Time: 0505 REPORT STATUS: Signed EXAMINATION: CHEST SINGLE (PORTABLE) INDICATION: chest pain COMPARISON: Abdominal CT 10/20/2018; chest radiograph 06/02/2018 FINDINGS: AP view TUBES and LINES: None. LUNGS: Lungs are well i nflated. Lungs are clear. There is no evidence of pneumonia or pulmonary florin a. PLEURA: No pleural effusion or pneumothorax. HEART AND MEDIASTINUM : The cardiomediastinal silhouette is unremarkable. BONES AND SOFT TIS SUES: No acute osseous lesion. Cardiac loop recorder projects over the left l ower chest. UPPER ABDOMEN: No free air under the diaphragm. Surgical clips of the right upper quadrant IMPRESSION: No acute thoracic abnormal ity. Signed by: Gurwinder Jeff DO on 02/22/2019 5:34 AM Dictated By: GURWINDER JEFF DO 3 Transcribed By: GARO on 02/22/19533 COPY TO: JAYY CHADWICK MD White Blood Llmbc0693-59-99 05:24:00* Test Item Value Reference Range Interpretation Comments White Blood Count (test code = 6690-2) 6.24 4.8-10.8 [facility] CenterRed Blood Jjtct4073-37-12 05:24:00* Test Item Value Reference Range Interpretation Comments Red Blood Count (test code = 789-8) 4.42 3.6-5.1 [facility] CenterHemoglobin2019-07-10 05:24:00* Test Item Value Reference Range Interpretation Comments Hemoglobin (test code = 21157-6) 12.9 12.0-16.0 [facility] CenterHematocrit2019-07-10 05:24:00* Test Item Value Reference Range Interpretation Comments Hematocrit (test code = 4544-3) 39.2 34.2-44.1 [facility] CenterMean Corpuscular Sqqfyr5934-74-56 05:24:00* Test Item Value Reference Range Interpretation Comments Mean Corpuscular Volume (test code = 787-2) 88.7 81-99 [facility] CenterMean Corpuscular Jkmrftmxyy0436-59-01 05:24:00* Test Item Value Reference Range Interpretation Comments Mean Corpuscular Hemoglobin (test code = 785-6) 29.2 28-32 [facility] CenterMean Corpuscular Hemoglobin Concent 2019-02-22 05:24:00* Test Item Value Reference Range Interpretation Comments Mean Corpuscular Hemoglobin Concent (test code = 786-4) 32.9 31-35 [facility] CenterRed Cell Distribution Unaur8844-41-22 05:24:00* Test Item Value Reference Range Interpretation Comments Red Cell Distribution Width (test code = 47150-1) 13.8 11.7 -14.4 [facility] CenterPlatelet Bykhe5685-46-16 05:24:00* Test Item Value Reference Range Interpretation Comments Platelet Count (test code = 777-3) 202 140-360 [facility] CenterNeutrophils (%) (Auto)2019-02-22 05:24:00 * Test Item Value Reference Range Interpretation Comments Neutrophils (%) (Auto) (test code = 53018-3) 47.3 38.7-80.0 [facility] CenterLymphocytes (%) (Auto)2019-02-22 05:24:00 * Test Item Value Reference Range Interpretation Comments Lymphocytes (%) (Auto) (test code = 736-9) 40.9 18.0-39.1 H [facility] CenterMonocytes (%) (Auto)2019-02-22 05:24:00* Test Item Value Reference Range Interpretation Comments Monocytes (%) (Auto) (test code = 5905-5) 7.2 4.4-11.3 [facility] CenterEosinophils (%) (Auto)2019-02-22 05:24:00 * Test Item Value Reference Range Interpretation Comments Eosinophils (%) (Auto) (test code = 713-8) 3.8 0.0-6.0 [facility] CenterBasophils (%) (Auto)2019-02-22 05:24:00* Test Item Value Reference Range Interpretation Comments Basophils (%) (Auto) (test code = 706-2) 0.5 0.0-1.0 [facility] CenterIM GRANULOCYTES %2019-02-22 05:24:00* Test Item Value Reference Range Interpretation Comments IM GRANULOCYTES % (test code = IM GRANULOCYTES %) 0.3 0.0- 1.0 [facility] CenterNeutrophils # (Auto)2019-02-22 05:24:00* Test Item Value Reference Range Interpretation Comments Neutrophils # (Auto) (test code = 751-8) 3.0 2.1-6.9 [facility] CenterLymphocytes # (Auto)2019-02-22 05:24:00* Test Item Value Reference Range Interpretation Comments Lymphocytes # (Auto) (test code = 01065-2) 2.6 1.0-3.2 [facility] CenterMonocytes # (Auto)2019-02-22 05:24:00* Test Item Value Reference Range Interpretation Comments Monocytes # (Auto) (test code = 742-7) 0.5 0.2-0.8 [facility] CenterEosinophils # (Auto)2019-02-22 05:24:00* Test Item Value Reference Range Interpretation Comments Eosinophils # (Auto) (test code = 711-2) 0.2 0.0-0.4 [facility] CenterBasophils # (Auto)2019-02-22 05:24:00* Test Item Value Reference Range Interpretation Comments Basophils # (Auto) (test code = 704-7) 0.0 0.0-0.1 [facility] CenterAbsolute Immature Granulocyte (auto 2019-02-22 05:24:00* Test Item Value Reference Range Interpretation Comments Absolute Immature Granulocyte (auto (jesus t code = Absolute Immature Granulocyte (auto) 0.02 0-0.1 [facility] CenterProthrombin Nbum7991-09-98 05:24:00* Test Item Value Reference Range Interpretation Comments Prothrombin Time (test code = 5902-2) 12.9 11.9-14.5 [facility] CenterProthromb Time International Ratio 2019-02-22 05:24:00* Test Item Value Reference Range Interpretation Comments Prothromb Time International Ratio (test code = 6301-6) 0.92 Oral Anticoagulant Therapy INR Values:1. Low Intensity Therapy 1.5 - 2.02 . Moderate Intensity Therapy 2.0 - 3.03. High Intensity Therapy(1) 2.5 - 3. 54. High Intensity Therapy(2) 3.0 - 4.05. Panic Value INR > 5.0 [facility] CenterActivated Partial Thromboplast Time 2019-02-22 05:24:00* Test Item Value Reference Range Interpretation Comments Activated Partial Thromboplast Time (test code = 09544-7) 26.1 23.8-35.5 [facility] CenterWhite Blood Cnawp6579-88-31 05:24:00* Test Item Value Reference Range Interpretation Comments White Blood Count (test code = 6690-2) 6.24 4.8-10.8 [facility] CenterRed Blood Wyurk2572-07-64 05:24:00* Test Item Value Reference Range Interpretation Comments Red Blood Count (test code = 789-8) 4.42 3.6-5.1 [facility] CenterHemoglobin2019-07-10 05:24:00* Test Item Value Reference Range Interpretation Comments Hemoglobin (test code = 21567-0) 12.9 12.0-16.0 [facility] CenterHematocrit2019-07-10 05:24:00* Test Item Value Reference Range Interpretation Comments Hematocrit (test code = 4544-3) 39.2 34.2-44.1 [facility] CenterMean Corpuscular Elgflx2511-18-63 05:24:00* Test Item Value Reference Range Interpretation Comments Mean Corpuscular Volume (test code = 787-2) 88.7 81-99 [facility] CenterMean Corpuscular Fgrloaqlvt0149-24-19 05:24:00* Test Item Value Reference Range Interpretation Comments Mean Corpuscular Hemoglobin (test code = 785-6) 29.2 28-32 [facility] CenterMean Corpuscular Hemoglobin Concent 2019-02-22 05:24:00* Test Item Value Reference Range Interpretation Comments Mean Corpuscular Hemoglobin Concent (test code = 786-4) 32.9 31-35 [facility] CenterRed Cell Distribution Tjjwn2093-30-52 05:24:00* Test Item Value Reference Range Interpretation Comments Red Cell Distribution Width (test code = 24343-5) 13.8 11.7 -14.4 [facility] CenterPlatelet Nqiex0732-69-52 05:24:00* Test Item Value Reference Range Interpretation Comments Platelet Count (test code = 777-3) 202 140-360 [facility] CenterNeutrophils (%) (Auto)2019-02-22 05:24:00 * Test Item Value Reference Range Interpretation Comments Neutrophils (%) (Auto) (test code = 92849-5) 47.3 38.7-80.0 [facility] CenterLymphocytes (%) (Auto)2019-02-22 05:24:00 * Test Item Value Reference Range Interpretation Comments Lymphocytes (%) (Auto) (test code = 736-9) 40.9 18.0-39.1 H [facility] CenterMonocytes (%) (Auto)2019-02-22 05:24:00* Test Item Value Reference Range Interpretation Comments Monocytes (%) (Auto) (test code = 5905-5) 7.2 4.4-11.3 [facility] CenterEosinophils (%) (Auto)2019-02-22 05:24:00 * Test Item Value Reference Range Interpretation Comments Eosinophils (%) (Auto) (test code = 713-8) 3.8 0.0-6.0 [facility] CenterBasophils (%) (Auto)2019-02-22 05:24:00* Test Item Value Reference Range Interpretation Comments Basophils (%) (Auto) (test code = 706-2) 0.5 0.0-1.0 [facility] CenterIM GRANULOCYTES %2019-02-22 05:24:00* Test Item Value Reference Range Interpretation Comments IM GRANULOCYTES % (test code = IM GRANULOCYTES %) 0.3 0.0- 1.0 [facility] CenterNeutrophils # (Auto)2019-02-22 05:24:00* Test Item Value Reference Range Interpretation Comments Neutrophils # (Auto) (test code = 751-8) 3.0 2.1-6.9 [facility] CenterLymphocytes # (Auto)2019-02-22 05:24:00* Test Item Value Reference Range Interpretation Comments Lymphocytes # (Auto) (test code = 88103-7) 2.6 1.0-3.2 [facility] CenterMonocytes # (Auto)2019-02-22 05:24:00* Test Item Value Reference Range Interpretation Comments Monocytes # (Auto) (test code = 742-7) 0.5 0.2-0.8 [facility] CenterEosinophils # (Auto)2019-02-22 05:24:00* Test Item Value Reference Range Interpretation Comments Eosinophils # (Auto) (test code = 711-2) 0.2 0.0-0.4 [facility] CenterBasophils # (Auto)2019-02-22 05:24:00* Test Item Value Reference Range Interpretation Comments Basophils # (Auto) (test code = 704-7) 0.0 0.0-0.1 [facility] CenterAbsolute Immature Granulocyte (auto 2019-02-22 05:24:00* Test Item Value Reference Range Interpretation Comments Absolute Immature Granulocyte (auto (jesus t code = Absolute Immature Granulocyte (auto) 0.02 0-0.1 [facility] CenterProthrombin Nead5880-95-10 05:24:00* Test Item Value Reference Range Interpretation Comments Prothrombin Time (test code = 5902-2) 12.9 11.9-14.5 [facility] CenterProthromb Time International Ratio 2019-02-22 05:24:00* Test Item Value Reference Range Interpretation Comments Prothromb Time International Ratio (test code = 6301-6) 0.92 Oral Anticoagulant Therapy INR Values:1. Low Intensity Therapy 1.5 - 2.02 . Moderate Intensity Therapy 2.0 - 3.03. High Intensity Therapy(1) 2.5 - 3. 54. High Intensity Therapy(2) 3.0 - 4.05. Panic Value INR > 5.0 [facility] CenterActivated Partial Thromboplast Time 2019-02-22 05:24:00* Test Item Value Reference Range Interpretation Comments Activated Partial Thromboplast Time (test code = 50042-3) 26.1 23.8-35.5 [facility] CenterProthrombin Ovmc2978-77-55 05:24:00* Test Item Value Reference Range Interpretation Comments Prothrombin Time (test code = 5902-2) 12.9 11.9-14.5 [facility] CenterProthromb Time International Ratio 2019-02-22 05:24:00* Test Item Value Reference Range Interpretation Comments Prothromb Time International Ratio (test code = 6301-6) 0.92 Oral Anticoagulant Therapy INR Values:1. Low Intensity Therapy 1.5 - 2.02 . Moderate Intensity Therapy 2.0 - 3.03. High Intensity Therapy(1) 2.5 - 3. 54. High Intensity Therapy(2) 3.0 - 4.05. Panic Value INR > 5.0 [facility] CenterActivated Partial Thromboplast Time 2019-02-22 05:24:00* Test Item Value Reference Range Interpretation Comments Activated Partial Thromboplast Time (test code = 13225-0) 26.1 23.8-35.5 [facility] CenterProthrombin Mbso4772-75-74 05:24:00* Test Item Value Reference Range Interpretation Comments Prothrombin Time (test code = 5902-2) 12.9 11.9-14.5 [facility] CenterProthromb Time International Ratio 2019-02-22 05:24:00* Test Item Value Reference Range Interpretation Comments Prothromb Time International Ratio (test code = 6301-6) 0.92 Oral Anticoagulant Therapy INR Values:1. Low Intensity Therapy 1.5 - 2.02 . Moderate Intensity Therapy 2.0 - 3.03. High Intensity Therapy(1) 2.5 - 3. 54. High Intensity Therapy(2) 3.0 - 4.05. Panic Value INR > 5.0 [facility] CenterActivated Partial Thromboplast Time 2019-02-22 05:24:00* Test Item Value Reference Range Interpretation Comments Activated Partial Thromboplast Time (test code = 91094-5) 26.1 23.8-35.5 [facility] HEAD/BRAIN W/O [id number] 08:04:00 Name: SASHA POPE [employer] [facility] [facility] [employer] : 1965 Age/S: 54 / F Tiffany Guzmán Unit #: [id number] Loc: [place] [address] Phys: Bo Meneses MD Acct: [id number] Dis Date: Status: REG ER PHONE #: [phone] Exam Date: 02/08/2019 08 FAX #: [phone] Reason: headache EXAMS: CPT CODE: [id number] CT HEAD/BRAIN W/O CONT 06664 HISTORY: headache TECHNIQUE: Noncontrast 2.[address] of the head. Examination acquired within 24 hours of arrival. Automated exposure control for dose reduction; DLP: 695 mGy-cm. COMPARISON: 04/20/17 FINDINGS: No acute hemorrhage. No CT evidence of acute infarct. No intracranial mass or mass effect. No hydrocephalus. 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 No extra- axial fluid collection. Atherosclerotic vascular calcification of the carotid siphons. Visualized paranasal sinuses are clear. Mastoid air cells and middle ear cavities are clear. Orbital contents are unremarkable. Calvarium and skull base are intact. IMPRESSION: No acute intracranial process. No significant interval change. at 0804 Reported and signed by: Connie Harp D.O. CC: Bo Meneses MD Technologist:Cindy Hernandez RT(R)(CT) CTDI: DLP: Trnscb Date/Time: 02/08/2019 (0804) [email or web address] Orig Print D/T: S: 02/08/2019 (0807) PAGE 1 Signed Report URINALYSIS [id number] 08:00:00* Test Item Value Reference Range Interpretation Comments UA COLOR (test code = COLU) Light-Yellow YELLOW UA APPEARANCE (test code = APPU) CLEAR CLEAR UA GLUCOSE DIPSTICK (test code = DGLUU) NEGATIVE mg/dL NEGATIVE UA BILIRUBIN DIPSTICK (test code = BILU) NEGATIVE mg/dL NEGATIVE UA KETONE DIPSTICK (test code = KETU) NEGATIVE mg/dL NEGATIVE UA SPECIFIC GRAVITY (test code = SGU) 1.013 1.001-1.035 UA BLOOD DIPSTICK (test code = JOBY) Negative mg/dL NEGATIVE UA PH DIPSTICK (test code = LARS) 5.5 5.0-8.0 UA PROTEIN DIPSTICK (test code = PROU) NEGATIVE mg/dL NEGATIVE UA UROBILINIOGEN DIPSTICK (test code = URO) Normal mg/dL NEGATIVE UA NITRITE DIPSTICK (test code = RABIA) NEGATIVE NEGATIVE UA LEUKOCYTE ESTERASE W REFLEX (test code = LEUUR) NEGATIVE Reagan/uL NEGATIVE UA WBC (test code = WBCU) 0-5 per HPF 0-5 UA RBC (test code = RBCU) 0-2 #/HPF 0-5 UA EPITHELIAL CELLS (test code = EPIU) FEW per HPF FEW UA BACTERIA (test code = BACU) FEW #/HPF NONE UA HYALINE CAST (test code = HYALU) 0-2 #/LPF 0-5 UA MUCUS (test code = MUCU) FEW #/LPF FEW Urine Source? Clean CatchURINALYSIS [id number] 07:59:00* Test Item Value Reference Range Interpretation Comments UA COLOR (test code = COLU) Light-Yellow YELLOW UA APPEARANCE (test code = APPU) CLEAR CLEAR UA GLUCOSE DIPSTICK (test code = DGLUU) NEGATIVE mg/dL NEGATIVE UA BILIRUBIN DIPSTICK (test code = BILU) NEGATIVE mg/dL NEGATIVE UA KETONE DIPSTICK (test code = KETU) NEGATIVE mg/dL NEGATIVE UA SPECIFIC GRAVITY (test code = SGU) 1.013 1.001-1.035 UA BLOOD DIPSTICK (test code = JOBY) Negative mg/dL NEGATIVE UA PH DIPSTICK (test code = LARS) 5.5 5.0-8.0 UA PROTEIN DIPSTICK (test code = PROU) NEGATIVE mg/dL NEGATIVE UA UROBILINIOGEN DIPSTICK (test code = URO) Normal mg/dL NEGATIVE UA NITRITE DIPSTICK (test code = RABIA) NEGATIVE NEGATIVE UA LEUKOCYTE ESTERASE W REFLEX (test code = LEUUR) NEGATIVE Reagan/uL NEGATIVE UA WBC (test code = WBCU) per HPF 0-5 UA RBC (test code = RBCU) per HPF 0-5 UA EPITHELIAL CELLS (test code = EPIU) per HPF Few UA BACTERIA (test code = BACU) per HPF NONE Urine Source? Clean CatchBASIC METABOLIC [id number] 07:43:00* Test Item Value Reference Range Interpretation Comments SODIUM (test code = NA) 138 mmol/L 136-145 N POTASSIUM (test code = K) 4.1 mmol/L 3.5-5.1 N CHLORIDE (test code = CL) 107.0 mmol/L 98-107 N CARBON DIOXIDE (test code = CO2) 22.0 mmol/L 21-32 N ANION GAP (test code = GAP) 13.1 10-20 N GLUCOSE (test code = GLU) 87 mg/dL 74-106 N BLOOD UREA NITROGEN (test code = BUN) 18 mg/dL 7-18 N GLOMERULAR FILTRATION RATE (test code = GFR) > 60 mL/min >=60 Estimated GFR by using Modified MDRD formula.Chronic kidney disease is defined as either kidney damageor GFR <60 mL/min/1.73 m2 for >3 months. CREATININE (test code = CREAT) 0.60 mg/dL 0.55-1.02 N Note change in reference range due to change in reagent. BUN/CREATININE RATIO (test code = BUN/CREA) 30.0 10-20 H CALCIUM (test code = CA) 9.0 mg/dL 8.5-10.1 N HEPATIC FUNCTION [id number] 07:43:00* Test Item Value Reference Range Interpretation Comments TOTAL PROTEIN (test code = PROT) 7.9 gram/dL 6.4-8.2 N ALBUMIN (test code = ALB) 3.5 g/dL 3.4-5.0 N GLOBULIN (test code = GLOB) 4.4 gram/dL 2.7-4.2 H ALBUMIN/GLOBULIN RATIO (test code = A/G) 0.8 0.75-1.50 N BILIRUBIN TOTAL (test code = BILT) 0.30 mg/dL 0.0-1.0 N BILIRUBIN DIRECT (test code = BILD) 0.07 mg/dL 0.0-0.20 N SGOT/AST (test code = AST) 70 IUnit/L 15-37 H SGPT/ALT (test code = ALT) 86 IUnit/L 12-78 H ALKALINE PHOSPHATASE TOTAL (test code = ALKP) 100 IUnit/L 45-117 N Note change in reference range due to change in reagent. [id number] 07:43:00* Test Item Value Reference Range Interpretation Comments LIPASE (test code = LIP) 102 U/L 73.0-393.0 N BASIC METABOLIC [id number] 07:36:00* Test Item Value Reference Range Interpretation Comments SODIUM (test code = NA) 138 mmol/L 136-145 N POTASSIUM (test code = K) 4.1 mmol/L 3.5-5.1 N CHLORIDE (test code = CL) 107.0 mmol/L 98-107 N CARBON DIOXIDE (test code = CO2) mmol/L 21-32 ANION GAP (test code = GAP) 10-20 GLUCOSE (test code = GLU) mg/dL 74-106 BLOOD UREA NITROGEN (test code = BUN) mg/dL 7-18 GLOMERULAR FILTRATION RATE (test code = GFR) mL/min >=60 CREATININE (test code = CREAT) mg/dL 0.55-1.02 BUN/CREATININE RATIO (test code = BUN/CREA) 10-20 CALCIUM (test code = CA) mg/dL 8.5-10.1 HEPATIC FUNCTION [id number] 07:36:00* Test Item Value Reference Range Interpretation Comments TOTAL PROTEIN (test code = PROT) gram/dL 6.4-8.2 ALBUMIN (test code = ALB) g/dL 3.4-5.0 GLOBULIN (test code = GLOB) gram/dL 2.7-4.2 ALBUMIN/GLOBULIN RATIO (test code = A/G) 0.75-1.50 BILIRUBIN TOTAL (test code = BILT) mg/dL 0.0-1.0 BILIRUBIN DIRECT (test code = BILD) mg/dL 0.0-0.20 SGOT/AST (test code = AST) IUnit/L 15-37 SGPT/ALT (test code = ALT) IUnit/L 12-78 ALKALINE PHOSPHATASE TOTAL (test code = ALKP) IUnit/L 45-117 [id number] 07:36:00* Test Item Value Reference Range Interpretation Comments LIPASE (test code = LIP) U/L 73.0-393.0 CBC W/O [id number] 07:13:00* Test Item Value Reference Range Interpretation Comments WHITE BLOOD CELL (test code = WBC) 6.6 K/mm3 4.5-12.5 N RED BLOOD CELL (test code = RBC) 4.59 mill/mm3 3.7-5.2 N HEMOGLOBIN (test code = HGB) 13.3 gram/dL 11.5-15.5 N HEMATOCRIT (test code = HCT) 40.8 % 36.0-46.0 N MEAN CELL VOLUME (test code = MCV) 88.9 fL 80-98 N MEAN CELL HGB (test code = MCH) 29.0 picogram 27.0-33.0 N MEAN CELL HGB CONCETRATION (test code = MCHC) 32.6 gram/dL 33.0-36. 0 L RED CELL DISTRIBUTION WIDTH (test code = RDW) 13.9 % 11.6-16. 2 N PLATELET COUNT (test code = PLT) 195 K/mm3 150-450 N MEAN PLATELET VOLUME (test code = MPV) 9.1 fL 6.7-11.0 N - CT ABD PELVIS W/O [id number] 06:42:00 Name: SASHA POPE 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 Indication: Left-sided abdominal pain Location: R16 Comparison: November 21, 2017 Technique: CT images of the abdomen and pelvis were obtained from the diaphragm to the pubic symphysis without the administration of intravenous contrast contrast. Coronal reformats are provided. One or more of the following dose reduction techniques were used: Automated exposure control, adjustment of the mA and/or kV according to patient size, and/or utilization of iterative reconstruction technique. Findings: Lungs bases: Unremarkable. Upper GI: mild gastric wall thickening with questionable air containing focus within the anterior gastric wall recommend further evaluation with endoscopy to exclude ulcer. Liver: Noncontrast appearance is unremarkable. Gallbladder: Surgically absent Pancreas: Noncontrast appearance is unremarkable. Spleen: Noncontrast appearance is unremarkable. Adrenal glands: Noncontrast appearance is unremarkable. Kidneys: Post surgical changes of the left kidney are noted. Questi onable left renal pelvic induration is nonspecific and may be within tasneem l limits versus electroplating sales representative of an ascending urinary tract infection. B ladder wall thickening is also seen suggestive of possible cystitis Bowel: No bowel obstruction. The appendix is surgically absent. Diffuse diverticulosis Peritoneum: No ascites. No free air Skeletal: No acute fracture.. Impression: Exam findings limited by absence of oral and IV contrast 1. Mild gastric wa ll thickening with questionable air containing focus within the anterior gastric wall recommend further evaluation PAGE 1 Sig marly Report (CONTINUED) Name: SASHA POPE [facility] [employer] 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 2. Questionable left renal pelvic induration is nonspecific and may be within normal limits versus electroplating sales representative of an ascending urinary tract infection. Bladder wall thickening is also seen suggestive of possible cystitis Additional findings as detailed above at 0642 Reported and signed by: Karen Raygoza M.D. CC: Saurabh Muir NP Technologist:JOHN URENA CTDI: DLP: Trnscb Date/Time: 02/08/2019 (641) [email or web address] Orig Print D/T: S: 02/08/2019 (0645) PAGE [address] ABDOMEN/PELVIS [id number] 13:08:00 [place] [address] Patient Name: SASHA POPE MR #: [id number] : 1965 Age/Sex: 53/F Req #: [id number] Adm Physician: Ordered by: MIKALA EVANS MD Report #: [id number] Location: ER Room/Bed: Procedure: [id number] CT/CT ABDOMEN/PELVIS W Exam Date: 12/02/18 Exam Time: 1235 REPORT STATUS: Signed EXAMINATION: CT of the abdomen and pelvis with contrast. TECHNIQUE: Sp iral CT images of the abdomen and pelvis were performed from the lung bases to the lesser trochanters after the intravenous administration of 100 cc Isovue- 370. Coronal and sagittal reformatted images were obtained. COMPARISON: CT abdomen and pelvis with contrast 10/20/2018 CLINICAL HISTORY:Abdominal pain DISCUSSION: ABDOMEN/PELVIS: LOWER THORAX:Subsegmental atelect asis in the dependent lower lobes. HEPATOBILIARY: As before, hepatic parenc hyma is diffusely hypoattenuating compatible with steatosis. No focal hepatic lesion. No intrahepatic biliary dilatation. The gallbladder is absent. SPLEEN: No splenomegaly. PANCREAS: No focal masses or ductal dilat ation. ADRENALS: No adrenal nodules. KIDNEYS/URETERS: Postsurgical ch anges of the upper pole of the left kidney. No gross mass lesion. No hydroneph rosis. No calculi. PELVIC ORGANS/BLADDER: Urinary bladder is normal. Uterus is not identified and has presumably been removed. No adnexal mass. ROCIO TONEUM/RETROPERITONEUM: No ascites. No pneumoperitoneum. LYMPH NODES: No pe lvic sidewall, retroperitoneal, or mesenteric lymphadenopathy. VESSELS: T he abdominal aorta, major branch vessels, and iliac arterial systems are paten t with mild atherosclerotic calcification. No aneurysmal dilatation. Portal ve in, splenic vein, and central superior mesenteric vein are patent. GI TRACT : The large bowel shows no evidence of distention or wall thickening. As befor e, there are scattered descending and sigmoid colon diverticula without adjace nt inflammation. The appendix is not identified and has presumably been remove d. The stomach is partially collapsed with prominence of the rugal folds. No s mall bowel dilatation to suggest obstruction. BONES AND SOFT TISSUE: No oss eous destructive lesions. Postsurgical changes along the left flank. IMP RESSION: No acute intra-abdominal or pelvic CT abnormalities. Large b owel diverticulosis without evidence of diverticulitis. Hepatic steatosis. Atherosclerotic vascular disease. Signed by: Dr. John Carrasquillo M.D. on 12/02/2018 1:17 PM Dictated By: JOHN CARRASQUILLO MD 16 Transcribed By: GARO on 12/02/187 COPY TO: MIKALA EVANS MD Sodium Krhtf6121-81-66 11:32:00* Test Item Value Reference Range Interpretation Comments Sodium Level (test code = 2951-2) 140 136-145 [facility] CenterPotassium Zcqpq6851-80-94 11:32:00* Test Item Value Reference Range Interpretation Comments Potassium Level (test code = 2823-3) 3.9 3.5-5.1 [facility] CenterChloride Datvg6613-08-02 11:32:00* Test Item Value Reference Range Interpretation Comments Chloride Level (test code = 2075-0) 106 98-107 [facility] CenterCarbon Dioxide Aspnn3291-58-56 11:32:00* Test Item Value Reference Range Interpretation Comments Carbon Dioxide Level (test code = 2028-9) 24 22-29 [facility] CenterAnion Tfs1752-18-88 11:32:00* Test Item Value Reference Range Interpretation Comments Anion Gap (test code = 10676-0) 13.9 8-16 [facility] CenterBlood Urea Nppofygf8244-30-96 11:32:00* Test Item Value Reference Range Interpretation Comments Blood Urea Nitrogen (test code = 3094-0) 15 7-26 [facility] CenterCreatinine2019-04-19 11:32:00* Test Item Value Reference Range Interpretation Comments Creatinine (test code = 2160-0) 0.78 0.57-1.11 [facility] CenterBUN/Creatinine Qsmny2891-93-16 11:32:00* Test Item Value Reference Range Interpretation Comments BUN/Creatinine Ratio (test code = 3097-3) 19 6-25 [facility] CenterEstimat Glomerular Filtration Rate 2018-12-02 11:32:00* Test Item Value Reference Range Interpretation Comments Estimat Glomerular Filtration Rate (test code = 818320020) > 60 >60 Ranges were taken from the National Kidney Disease Education Program and the [facility] Foundation literature.Reference ranges:60 or greater: Vmjxcx79-48 ( for 3 consecutive months): Chronic kidney disease 15 or less: Kidney failureMethodist Richardson Medical CenterGlucose Gjzvy0598-61-38 11:32:00* Test Item Value Reference Range Interpretation Comments Glucose Level (test code = YPK1012) 85 74-118 [facility] CenterCalcium Eqscb8239-01-11 11:32:00* Test Item Value Reference Range Interpretation Comments Calcium Level (test code = 87727-7) 9.7 8.4-10.2 [facility] CenterTotal Kdqycazej7956-95-42 11:32:00* Test Item Value Reference Range Interpretation Comments Total Bilirubin (test code = 1975-2) 0.4 0.2-1.2 [facility] CenterAspartate Amino Transf (AST/SGOT) 2018-12-02 11:32:00* Test Item Value Reference Range Interpretation Comments Aspartate Amino Transf (AST/SGOT) (test code = Aspartate Amino Transf (AST/SGOT)) 48 5-34 H [facility] CenterAlanine Aminotransferase (ALT/SGPT) 2018-12-02 11:32:00* Test Item Value Reference Range Interpretation Comments Alanine Aminotransferase (ALT/SGPT) (test code = 1742-6) 58 0-55 H [facility] CenterTotal Ghshyvp1932-74-64 11:32:00* Test Item Value Reference Range Interpretation Comments Total Protein (test code = 2885-2) 8.4 6.5-8.1 H [facility] CenterAlbumin2019-04-19 11:32:00* Test Item Value Reference Range Interpretation Comments Albumin (test code = 1751-7) 3.8 3.5-5.0 [facility] CenterGlobulin2019-04-19 11:32:00* Test Item Value Reference Range Interpretation Comments Globulin (test code = 89004-8) 4.6 2.3-3.5 H [facility] CenterAlbumin/Globulin Ejxxy3205-24-55 11:32:00 * Test Item Value Reference Range Interpretation Comments Albumin/Globulin Ratio (test code = 1759-0) 0.8 0.8-2.0 [facility] CenterAlkaline Steklukxpkg9314-48-83 11:32:00* Test Item Value Reference Range Interpretation Comments Alkaline Phosphatase (test code = 6768-6) 100 40-150 [facility] CenterCreatine Dzresc4604-92-27 11:32:00* Test Item Value Reference Range Interpretation Comments Creatine Kinase (test code = 2157-6) 110 29-168 [facility] CenterCreatine Kinase AO9464-80-68 11:32:00* Test Item Value Reference Range Interpretation Comments Creatine Kinase MB (test code = 34022-2) 1.60 0-5.0 [facility] CenterTroponin T7498-88-49 11:32:00* Test Item Value Reference Range Interpretation Comments Troponin I (test code = KVT1444) < 0.001 0-0.300 [facility] CenterLipase2019-04-19 11:32:00* Test Item Value Reference Range Interpretation Comments Lipase (test code = 3040-3) [facility] CenterLipase2019-04-19 11:32:00* Test Item Value Reference Range Interpretation Comments Lipase (test code = 3040-3) [facility] CenterLipase2019-04-19 11:32:00* Test Item Value Reference Range Interpretation Comments Lipase (test code = 3040-3) [facility] CenterLipase2019-04-19 11:32:00* Test Item Value Reference Range Interpretation Comments Lipase (test code = 3040-3) 11 8-78 [facility] CenterUrine DMQ7097-22-71 11:21:00* Test Item Value Reference Range Interpretation Comments Urine WBC (test code = 5821-4) NONE 0-5 [facility] CenterUrine IDC4694-90-90 11:21:00* Test Item Value Reference Range Interpretation Comments Urine RBC (test code = 55670-9) NONE 0-5 [facility] CenterUrine Hwvivvrg5362-66-17 11:21:00* Test Item Value Reference Range Interpretation Comments Urine Bacteria (test code = 51555-8) NONE NONE [facility] CenterUrine Epithelial Ztahw3143-81-19 11:21:00 * Test Item Value Reference Range Interpretation Comments Urine Epithelial Cells (test code = 60370-2) FEW NONE [facility] VSH3215-03-78 11:21:00* Test Item Value Reference Range Interpretation Comments Urine WBC (test code = 5821-4) NONE 0-5 [facility] CenterUrine CQS0137-33-83 11:21:00* Test Item Value Reference Range Interpretation Comments Urine RBC (test code = 89598-5) NONE 0-5 [facility] CenterUrine Plnvidoh1049-81-13 11:21:00* Test Item Value Reference Range Interpretation Comments Urine Bacteria (test code = 57991-8) NONE NONE [facility] CenterUrine Epithelial Fupfo3790-91-04 11:21:00 * Test Item Value Reference Range Interpretation Comments Urine Epithelial Cells (test code = 69426-3) FEW NONE [facility] CenterUrine IHY8378-78-04 11:21:00* Test Item Value Reference Range Interpretation Comments Urine WBC (test code = 5821-4) NONE 0-5 [facility] MFX2485-41-53 11:21:00* Test Item Value Reference Range Interpretation Comments Urine RBC (test code = 45911-9) NONE 0-5 [facility] Giyjeuiq6088-89-79 11:21:00* Test Item Value Reference Range Interpretation Comments Urine Bacteria (test code = 79372-3) NONE NONE [facility] CenterUrine Epithelial Lbfct6320-51-34 11:21:00 * Test Item Value Reference Range Interpretation Comments Urine Epithelial Cells (test code = 70322-2) FEW NONE [facility] CenterUrine NEK5087-30-05 11:21:00* Test Item Value Reference Range Interpretation Comments Urine WBC (test code = 5821-4) NONE 0-5 [facility] CenterUrine HSE6707-38-77 11:21:00* Test Item Value Reference Range Interpretation Comments Urine RBC (test code = 21268-7) NONE 0-5 [facility] CenterUrine Dfhlxmeo2476-99-67 11:21:00* Test Item Value Reference Range Interpretation Comments Urine Bacteria (test code = 01850-5) NONE NONE [facility] CenterUrine Epithelial Iptav6622-06-17 11:21:00 * Test Item Value Reference Range Interpretation Comments Urine Epithelial Cells (test code = 42776-3) FEW NONE [facility] CenterWhite Blood Xuiwu6517-41-34 11:20:00* Test Item Value Reference Range Interpretation Comments White Blood Count (test code = 6690-2) 6.00 4.8-10.8 [facility] CenterRed Blood Bamfa8679-72-16 11:20:00* Test Item Value Reference Range Interpretation Comments Red Blood Count (test code = 789-8) 4.31 3.6-5.1 [facility] CenterHemoglobin2019-04-19 11:20:00* Test Item Value Reference Range Interpretation Comments Hemoglobin (test code = 33995-7) 12.4 12.0-16.0 [facility] CenterHematocrit2019-04-19 11:20:00* Test Item Value Reference Range Interpretation Comments Hematocrit (test code = 4544-3) 38.2 34.2-44.1 [facility] CenterMean Corpuscular Yccvmp9170-12-61 11:20:00* Test Item Value Reference Range Interpretation Comments Mean Corpuscular Volume (test code = 787-2) 88.6 81-99 [facility] CenterMean Corpuscular Lsshhnkohi1790-45-28 11:20:00* Test Item Value Reference Range Interpretation Comments Mean Corpuscular Hemoglobin (test code = 785-6) 28.8 28-32 [facility] CenterMean Corpuscular Hemoglobin Concent 2018-12-02 11:20:00* Test Item Value Reference Range Interpretation Comments Mean Corpuscular Hemoglobin Concent (test code = 786-4) 32.5 31-35 [facility] CenterRed Cell Distribution Nbfdm1434-70-00 11:20:00* Test Item Value Reference Range Interpretation Comments Red Cell Distribution Width (test code = 96559-6) 13.4 11.7 -14.4 [facility] CenterPlatelet Zvcxx4910-09-02 11:20:00* Test Item Value Reference Range Interpretation Comments Platelet Count (test code = 777-3) 219 140-360 [facility] CenterNeutrophils (%) (Auto)2018-12-02 11:20:00 * Test Item Value Reference Range Interpretation Comments Neutrophils (%) (Auto) (test code = 16631-5) 49.7 38.7-80.0 [facility] CenterLymphocytes (%) (Auto)2018-12-02 11:20:00 * Test Item Value Reference Range Interpretation Comments Lymphocytes (%) (Auto) (test code = 736-9) 39.3 18.0-39.1 H [facility] CenterMonocytes (%) (Auto)2018-12-02 11:20:00* Test Item Value Reference Range Interpretation Comments Monocytes (%) (Auto) (test code = 5905-5) 5.5 4.4-11.3 [facility] CenterEosinophils (%) (Auto)2018-12-02 11:20:00 * Test Item Value Reference Range Interpretation Comments Eosinophils (%) (Auto) (test code = 713-8) 4.7 0.0-6.0 [facility] CenterBasophils (%) (Auto)2018-12-02 11:20:00* Test Item Value Reference Range Interpretation Comments Basophils (%) (Auto) (test code = 706-2) 0.5 0.0-1.0 [facility] CenterIM GRANULOCYTES %2018-12-02 11:20:00* Test Item Value Reference Range Interpretation Comments IM GRANULOCYTES % (test code = IM GRANULOCYTES %) 0.3 0.0- 1.0 [facility] CenterNeutrophils # (Auto)2018-12-02 11:20:00* Test Item Value Reference Range Interpretation Comments Neutrophils # (Auto) (test code = 751-8) 3.0 2.1-6.9 [facility] CenterLymphocytes # (Auto)2018-12-02 11:20:00* Test Item Value Reference Range Interpretation Comments Lymphocytes # (Auto) (test code = 79365-7) 2.4 1.0-3.2 [facility] CenterMonocytes # (Auto)2018-12-02 11:20:00* Test Item Value Reference Range Interpretation Comments Monocytes # (Auto) (test code = 742-7) 0.3 0.2-0.8 [facility] CenterEosinophils # (Auto)2018-12-02 11:20:00* Test Item Value Reference Range Interpretation Comments Eosinophils # (Auto) (test code = 711-2) 0.3 0.0-0.4 [facility] CenterBasophils # (Auto)2018-12-02 11:20:00* Test Item Value Reference Range Interpretation Comments Basophils # (Auto) (test code = 704-7) 0.0 0.0-0.1 [facility] CenterAbsolute Immature Granulocyte (auto 2018-12-02 11:20:00* Test Item Value Reference Range Interpretation Comments Absolute Immature Granulocyte (auto (jesus t code = Absolute Immature Granulocyte (auto) 0.02 0-0.1 [facility] CenterUrine Mhjyt2659-02-51 11:08:00* Test Item Value Reference Range Interpretation Comments Urine Color (test code = 5778-6) YELLOW YELLOW [facility] CenterUrine Ooyqwnu0088-37-90 11:08:00* Test Item Value Reference Range Interpretation Comments Urine Clarity (test code = 30576-4) SL CLOUDY CLEAR [facility] Specific Rrlugog1220-43-02 11:08:00 * Test Item Value Reference Range Interpretation Comments Urine Specific [place] (test code = 5811-5) 1.005 1.010-1.02 5 L [facility] CenterUrine oD5234-16-82 11:08:00* Test Item Value Reference Range Interpretation Comments Urine pH (test code = 03525-2) 6 5-7 [facility] Leukocyte Huogpwsb6549-38-83 11:08:00* Test Item Value Reference Range Interpretation Comments Urine Leukocyte Esterase (test code = 5799-2) NEGATIVE NEGATIVE [facility] Zdopdpe1318-39-15 11:08:00* Test Item Value Reference Range Interpretation Comments Urine Nitrite (test code = 80053-1) NEGATIVE NEGATIVE [facility] Mcwaqqu6479-40-37 11:08:00* Test Item Value Reference Range Interpretation Comments Urine Protein (test code = 5804-0) 3+ NEGATIVE H [facility] Glucose (UA)2018-12-02 11:08:00* Test Item Value Reference Range Interpretation Comments Urine Glucose (UA) (test code = 2349-9) NEGATIVE NEGATIVE [facility] Zhdbpos2694-76-80 11:08:00* Test Item Value Reference Range Interpretation Comments Urine Ketones (test code = 36372-7) NEGATIVE NEGATIVE [facility] Ejrjhcqxodmp2803-72-80 11:08:00* Test Item Value Reference Range Interpretation Comments Urine Urobilinogen (test code = 74549-7) 0.2 0.2-1 [facility] Qvnzgogur0636-25-79 11:08:00* Test Item Value Reference Range Interpretation Comments Urine Bilirubin (test code = 1978-6) NEGATIVE NEGATIVE [facility] Vyyhf0860-85-18 11:08:00* Test Item Value Reference Range Interpretation Comments Urine Blood (test code = 11163-5) NEGATIVE NEGATIVE [facility] CenterUrine Ogbkz7084-80-65 11:08:00* Test Item Value Reference Range Interpretation Comments Urine Color (test code = 5778-6) YELLOW YELLOW [facility] CenterUrine Lqjxscu9613-70-50 11:08:00* Test Item Value Reference Range Interpretation Comments Urine Clarity (test code = 61683-5) SL CLOUDY CLEAR [facility] CenterUrine Specific Sdvtytj0197-93-58 11:08:00 * Test Item Value Reference Range Interpretation Comments Urine Specific [place] (test code = 5811-5) 1.005 1.010-1.02 5 L [facility] CenterUrine cA4153-24-60 11:08:00* Test Item Value Reference Range Interpretation Comments Urine pH (test code = 54256-1) 6 5-7 [facility] Leukocyte Turwvoyx8636-09-97 11:08:00* Test Item Value Reference Range Interpretation Comments Urine Leukocyte Esterase (test code = 5799-2) NEGATIVE NEGATIVE [facility] CenterUrine Ovhljym2297-80-94 11:08:00* Test Item Value Reference Range Interpretation Comments Urine Nitrite (test code = 20941-6) NEGATIVE NEGATIVE [facility] CenterUrine Jugpkzp3748-76-80 11:08:00* Test Item Value Reference Range Interpretation Comments Urine Protein (test code = 5804-0) 3+ NEGATIVE H [facility] CenterUrine Glucose (UA)2018-12-02 11:08:00* Test Item Value Reference Range Interpretation Comments Urine Glucose (UA) (test code = 2349-9) NEGATIVE NEGATIVE [facility] CenterUrine Xbmlspo2899-92-84 11:08:00* Test Item Value Reference Range Interpretation Comments Urine Ketones (test code = 49604-6) NEGATIVE NEGATIVE [facility] Dicoiwrgizuc8794-20-54 11:08:00* Test Item Value Reference Range Interpretation Comments Urine Urobilinogen (test code = 84401-0) 0.2 0.2-1 [facility] CenterUrine Vcchnziol2310-12-69 11:08:00* Test Item Value Reference Range Interpretation Comments Urine Bilirubin (test code = 1978-6) NEGATIVE NEGATIVE [facility] CenterUrine Dyryu6781-34-24 11:08:00* Test Item Value Reference Range Interpretation Comments Urine Blood (test code = 55062-9) NEGATIVE NEGATIVE [facility] CenterUrine Vswtz5468-12-10 11:08:00* Test Item Value Reference Range Interpretation Comments Urine Color (test code = 5778-6) YELLOW YELLOW [facility] CenterUrine Kmssskq3612-67-76 11:08:00* Test Item Value Reference Range Interpretation Comments Urine Clarity (test code = 04969-9) SL CLOUDY CLEAR [facility] Specific Jwpprlc2390-39-95 11:08:00 * Test Item Value Reference Range Interpretation Comments Urine Specific [place] (test code = 5811-5) 1.005 1.010-1.02 5 L [facility] CenterUrine yI1282-01-92 11:08:00* Test Item Value Reference Range Interpretation Comments Urine pH (test code = 55405-9) 6 5-7 [facility] CenterUrine Leukocyte Svfusquc0868-03-96 11:08:00* Test Item Value Reference Range Interpretation Comments Urine Leukocyte Esterase (test code = 5799-2) NEGATIVE NEGATIVE [facility] Bjsvjtx4856-13-43 11:08:00* Test Item Value Reference Range Interpretation Comments Urine Nitrite (test code = 48700-8) NEGATIVE NEGATIVE [facility] CenterUrine Kckimll4716-01-78 11:08:00* Test Item Value Reference Range Interpretation Comments Urine Protein (test code = 5804-0) 3+ NEGATIVE H [facility] CenterUrine Glucose (UA)2018-12-02 11:08:00* Test Item Value Reference Range Interpretation Comments Urine Glucose (UA) (test code = 2349-9) NEGATIVE NEGATIVE [facility] CenterUrine Fokfhuo3682-05-44 11:08:00* Test Item Value Reference Range Interpretation Comments Urine Ketones (test code = 76751-5) NEGATIVE NEGATIVE [facility] CenterU[facility] Ryszeduwdool8362-11-68 11:08:00* Test Item Value Reference Range Interpretation Comments Urine Urobilinogen (test code = 35251-7) 0.2 0.2-1 [facility] CenterUrine Pkctdvvoi2419-79-93 11:08:00* Test Item Value Reference Range Interpretation Comments Urine Bilirubin (test code = 1978-6) NEGATIVE NEGATIVE [facility] CenterU[facility] Dieae9336-29-67 11:08:00* Test Item Value Reference Range Interpretation Comments Urine Blood (test code = 96205-4) NEGATIVE NEGATIVE [facility] CenterUrine Dqwrk4775-91-40 11:08:00* Test Item Value Reference Range Interpretation Comments Urine Color (test code = 5778-6) YELLOW YELLOW [facility] CenterUrine Otrgsbg3652-44-51 11:08:00* Test Item Value Reference Range Interpretation Comments Urine Clarity (test code = 90345-8) SL CLOUDY CLEAR [facility] Specific Dvyivob7345-56-66 11:08:00 * Test Item Value Reference Range Interpretation Comments Urine Specific [place] (test code = 5811-5) 1.005 1.010-1.02 5 L [facility] CenterUrine rW0569-17-89 11:08:00* Test Item Value Reference Range Interpretation Comments Urine pH (test code = 88331-6) 6 5-7 [facility] CenterU[facility] Leukocyte Slvdlaeq8459-42-23 11:08:00* Test Item Value Reference Range Interpretation Comments Urine Leukocyte Esterase (test code = 5799-2) NEGATIVE NEGATIVE [facility] CenterU[facility] Avguvsq7970-27-30 11:08:00* Test Item Value Reference Range Interpretation Comments Urine Nitrite (test code = 62281-4) NEGATIVE NEGATIVE [facility] CenterU[facility] Tjzxixl3720-37-68 11:08:00* Test Item Value Reference Range Interpretation Comments Urine Protein (test code = 5804-0) 3+ NEGATIVE H [facility] CenterU[facility] Glucose (UA)2018-12-02 11:08:00* Test Item Value Reference Range Interpretation Comments Urine Glucose (UA) (test code = 2349-9) NEGATIVE NEGATIVE [facility] CenterU[facility] Ahuyeko5983-18-38 11:08:00* Test Item Value Reference Range Interpretation Comments Urine Ketones (test code = 01094-0) NEGATIVE NEGATIVE [facility] CenterU[facility] Lntvubkcghjw3685-22-71 11:08:00* Test Item Value Reference Range Interpretation Comments Urine Urobilinogen (test code = 11458-4) 0.2 0.2-1 [facility] CenterU[facility] Olspmuhtj4029-63-63 11:08:00* Test Item Value Reference Range Interpretation Comments Urine Bilirubin (test code = 1978-6) NEGATIVE NEGATIVE [facility] CenterUrine Uqeym5803-40-52 11:08:00* Test Item Value Reference Range Interpretation Comments Urine Blood (test code = 74059-9) NEGATIVE NEGATIVE [facility])2018-12-02 10:28:00 [place] [address] Patient Name: SASHA POPE MR #: [id number] : Age/Sex: 53/F Req #: [id number] Adm Physician: Ordered by: MIKALA EVANS MD Report #: [id number] Location: ER Room/Bed: Procedure: 0419- 0014 DX/ABDOMEN-1VIEW (KUB) Exam Date: 12/02/18 Exam Time: 1015 REPORT STATUS: Signed Exam: Abdominal film Clinical History: Abdominal pain Comparison: Abdominal radiograph 10/21/2018, CT abdomen and pelvis with contrast 10/20/2018 DISCUSSION: The bowel gas pattern shows no dilated, air-filled loops of bowel. Gas and fecal material is noted throughout the large bowel and rectum. R adiopaque suture material along the ascending colon is again noted. No mass effect or organomegaly. Pelvic phleboliths. Surgical clips project over the r ight upper quadrant of the abdomen compatible with prior cholecystectomy. Left paravertebral surgical clips correlate to prior partial nephrectomy as seen on comparison CT. Regional skeletal structures are intact. IMPRESSION: Nonobstructive bowel gas pattern. Signed by: Dr. John Carrasquillo M.D. on 12/02/2018 10:31 AM Dictated By: JOHN CARRASQUILLO MD Electr onically Signed By: JOHN CARRASQUILLO MD on 12/02/18 1031 Transcribed By: GARO bello 12/02/18 1031 COPY TO: MIKALA EVANS MD Stool Occult Blood 2018-10-23 07:35:00* Test Item Value Reference Range Interpretation Comments Stool Occult Blood (test code = 2335-8) NEGATIVE NEGATIVE [facility] Occult Lnciu9873-60-72 07:35:00* Test Item Value Reference Range Interpretation Comments Stool Occult Blood (test code = 2335-8) NEGATIVE NEGATIVE [facility] Occult Vkwnj7103-96-41 07:35:00* Test Item Value Reference Range Interpretation Comments Stool Occult Blood (test code = 2335-8) NEGATIVE NEGATIVE [facility] Occult Whglv3828-15-69 07:35:00* Test Item Value Reference Range Interpretation Comments Stool Occult Blood (test code = 2335-8) NEGATIVE NEGATIVE [facility] Occult Afwxo2289-98-70 07:35:00* Test Item Value Reference Range Interpretation Comments Stool Occult Blood (test code = 2335-8) NEGATIVE NEGATIVE [facility] Gidrb6759-27-10 05:29:00* Test Item Value Reference Range Interpretation Comments Sodium Level (test code = 2951-2) 140 136-145 [facility] CenterPotassium Leuki1541-11-08 05:29:00* Test Item Value Reference Range Interpretation Comments Potassium Level (test code = 2823-3) 4.4 3.5-5.1 [facility] CenterChloride Vlfxk1122-37-17 05:29:00* Test Item Value Reference Range Interpretation Comments Chloride Level (test code = 2075-0) 105 98-107 [facility] CenterCarbon Dioxide Qtcbq0287-00-21 05:29:00* Test Item Value Reference Range Interpretation Comments Carbon Dioxide Level (test code = 8-9) 27 -29 [facility] CenterAnion Ddz1590-96-20 05:29:00* Test Item Value Reference Range Interpretation Comments Anion Gap (test code = 60961-1) 12.4 8-16 [facility] CenterBlood Urea Ryvxfwfg8505-58-02 05:29:00* Test Item Value Reference Range Interpretation Comments Blood Urea Nitrogen (test code = 3094-0) 10 7-26 [facility] CenterCreatinine2019-03-10 05:29:00* Test Item Value Reference Range Interpretation Comments Creatinine (test code = 2160-0) 0.81 0.57-1.11 [facility] CenterBUN/Creatinine Utghw2177-45-09 05:29:00* Test Item Value Reference Range Interpretation Comments BUN/Creatinine Ratio (test code = 3097-3) 12 6- [facility] CenterEstimat Glomerular Filtration Rate 2018-10-23 05:29:00* Test Item Value Reference Range Interpretation Comments Estimat Glomerular Filtration Rate (test code = 671357841) > 60 >60 Ranges were taken from the National Kidney Disease Education Program and the [facility] literature.Reference ranges:60 or greater: Cnzzhh02-30 ( for 3 consecutive months): Chronic kidney disease 15 or less: Kidney failureMethodist [facility] Medical CenterGlucose Hlrzw9605-98-60 05:29:00* Test Item Value Reference Range Interpretation Comments Glucose Level (test code = LUT0089) 97 74-118 [facility] CenterCalcium Cgexq3141-99-59 05:29:00* Test Item Value Reference Range Interpretation Comments Calcium Level (test code = 61921-6) 8.9 8.4-10.2 [facility] CenterTotal Nwbvwhxlf8906-78-44 05:29:00* Test Item Value Reference Range Interpretation Comments Total Bilirubin (test code = 1975-2) 0.3 0.2-1.2 [facility] CenterAspartate Amino Transf (AST/SGOT) 2018-10-23 05:29:00* Test Item Value Reference Range Interpretation Comments Aspartate Amino Transf (AST/SGOT) (test code = Aspartate Amino Transf (AST/SGOT)) 35 5-34 H [facility] CenterAlanine Aminotransferase (ALT/SGPT) 2018-10-23 05:29:00* Test Item Value Reference Range Interpretation Comments Alanine Aminotransferase (ALT/SGPT) (test code = 1742-6) 54 0-55 [facility] CenterTotal Eckmfjp4887-28-39 05:29:00* Test Item Value Reference Range Interpretation Comments Total Protein (test code = 2885-2) 7.0 6.5-8.1 [facility] CenterAlbumin2019-03-10 05:29:00* Test Item Value Reference Range Interpretation Comments Albumin (test code = 1751-7) 3.4 3.5-5.0 L [facility] CenterGlobulin2019-03-10 05:29:00* Test Item Value Reference Range Interpretation Comments Globulin (test code = 23204-9) 3.6 2.3-3.5 H [facility] CenterAlbumin/Globulin Apgkp5174-42-89 05:29:00 * Test Item Value Reference Range Interpretation Comments Albumin/Globulin Ratio (test code = 1759-0) 0.9 0.8-2.0 [facility] CenterAlkaline Xedlntmnjli1387-89-03 05:29:00* Test Item Value Reference Range Interpretation Comments Alkaline Phosphatase (test code = 6768-6) 74 40-150 [facility] CenterWhite Blood Rnhhw5954-43-67 05:14:00* Test Item Value Reference Range Interpretation Comments White Blood Count (test code = 6690-2) 6.11 4.8-10.8 [facility] CenterRed Blood Qidej9984-72-80 05:14:00* Test Item Value Reference Range Interpretation Comments Red Blood Count (test code = 789-8) 3.87 3.6-5.1 [facility] CenterHemoglobin2019-03-10 05:14:00* Test Item Value Reference Range Interpretation Comments Hemoglobin (test code = 85095-0) 11.2 12.0-16.0 L [facility] CenterHematocrit2019-03-10 05:14:00* Test Item Value Reference Range Interpretation Comments Hematocrit (test code = 4544-3) 34.4 34.2-44.1 [facility] CenterMean Corpuscular Didqgl5743-74-76 05:14:00* Test Item Value Reference Range Interpretation Comments Mean Corpuscular Volume (test code = 787-2) 88.9 81-99 [facility] CenterMean Corpuscular Foyandlbca7981-85-62 05:14:00* Test Item Value Reference Range Interpretation Comments Mean Corpuscular Hemoglobin (test code = 785-6) 28.9 28-32 [facility] CenterMean Corpuscular Hemoglobin Concent 2018-10-23 05:14:00* Test Item Value Reference Range Interpretation Comments Mean Corpuscular Hemoglobin Concent (test code = 786-4) 32.6 31-35 [facility] CenterRed Cell Distribution Rlvkw8346-47-20 05:14:00* Test Item Value Reference Range Interpretation Comments Red Cell Distribution Width (test code = 23839-2) 13.2 11.7 -14.4 [facility] CenterPlatelet Boxhu0511-87-18 05:14:00* Test Item Value Reference Range Interpretation Comments Platelet Count (test code = 777-3) 174 140-360 [facility] CenterNeutrophils (%) (Auto)2018-10-23 05:14:00 * Test Item Value Reference Range Interpretation Comments Neutrophils (%) (Auto) (test code = 76398-6) 50.2 38.7-80.0 [facility] CenterLymphocytes (%) (Auto)2018-10-23 05:14:00 * Test Item Value Reference Range Interpretation Comments Lymphocytes (%) (Auto) (test code = 736-9) 36.8 18.0-39.1 [facility] CenterMonocytes (%) (Auto)2018-10-23 05:14:00* Test Item Value Reference Range Interpretation Comments Monocytes (%) (Auto) (test code = 5905-5) 7.5 4.4-11.3 [facility] CenterEosinophils (%) (Auto)2018-10-23 05:14:00 * Test Item Value Reference Range Interpretation Comments Eosinophils (%) (Auto) (test code = 713-8) 4.9 0.0-6.0 [facility] CenterBasophils (%) (Auto)2018-10-23 05:14:00* Test Item Value Reference Range Interpretation Comments Basophils (%) (Auto) (test code = 706-2) 0.3 0.0-1.0 [facility] CenterIM GRANULOCYTES %2018-10-23 05:14:00* Test Item Value Reference Range Interpretation Comments IM GRANULOCYTES % (test code = IM GRANULOCYTES %) 0.3 0.0- 1.0 [facility] CenterNeutrophils # (Auto)2018-10-23 05:14:00* Test Item Value Reference Range Interpretation Comments Neutrophils # (Auto) (test code = 751-8) 3.1 2.1-6.9 [facility] CenterLymphocytes # (Auto)2018-10-23 05:14:00* Test Item Value Reference Range Interpretation Comments Lymphocytes # (Auto) (test code = 84521-2) 2.3 1.0-3.2 [facility] CenterMonocytes # (Auto)2018-10-23 05:14:00* Test Item Value Reference Range Interpretation Comments Monocytes # (Auto) (test code = 742-7) 0.5 0.2-0.8 [facility] CenterEosinophils # (Auto)2018-10-23 05:14:00* Test Item Value Reference Range Interpretation Comments Eosinophils # (Auto) (test code = 711-2) 0.3 0.0-0.4 [facility] CenterBasophils # (Auto)2018-10-23 05:14:00* Test Item Value Reference Range Interpretation Comments Basophils # (Auto) (test code = 704-7) 0.0 0.0-0.1 [facility] CenterAbsolute Immature Granulocyte (auto 2018-10-23 05:14:00* Test Item Value Reference Range Interpretation Comments Absolute Immature Granulocyte (auto (jesus t code = Absolute Immature Granulocyte (auto) 0.02 0-0.1 [facility] Hospitalto Lactoferrin (LAB)2018-10-22 22:28:00* Test Item Value Reference Range Interpretation Comments Stool Lactoferrin (LAB) (test code = 19248-3) NEGATIVE NEGATIVE Testing on stool aspirate specimens is outside beam worker claims since specime n type not validated on this assay.[facility] Lactoferrin (LAB)2018-10-22 22:28:00* Test Item Value Reference Range Interpretation Comments Stool Lactoferrin (LAB) (test code = 86241-2) NEGATIVE NEGATIVE Testing on stool aspirate specimens is outside beam worker claims since specime n type not validated on this assay.[facility] Hospitalto Lactoferrin (LAB)2018-10-22 22:28:00* Test Item Value Reference Range Interpretation Comments Stool Lactoferrin (LAB) (test code = 57836-3) NEGATIVE NEGATIVE Testing on stool aspirate specimens is outside beam worker claims since specime n type not validated on this assay.[facility] Hospitaltool Lactoferrin (LAB)2018-10-22 22:28:00* Test Item Value Reference Range Interpretation Comments Stool Lactoferrin (LAB) (test code = 29721-8) NEGATIVE NEGATIVE Testing on stool aspirate specimens is outside beam worker claims since specime n type not validated on this assay.[facility] Hospitaltool Lactoferrin (LAB)2018-10-22 22:28:00* Test Item Value Reference Range Interpretation Comments Stool Lactoferrin (LAB) (test code = 53657-3) NEGATIVE NEGATIVE Testing on stool aspirate specimens is outside beam worker claims since specime n type not validated on this assay.[facility] BDL0157-12-99 11:16:00 [place] [address] Patient Name: SASHA POPE MR #: [id number] : 1965 Age/Sex: 53/F Req #: [id number] Adm Physician: CIRO HERNANDEZ MD Ordered by: NATTY COOK MD Report #: [id number] Location: MED/SURG2 Room/Bed: 200 Procedure: [id number] 0001 MRI/MRI MRCP WWO Exam Date: Exam Time: REPORT STATUS: Signed EXAM: MRI MRCP WWO DATE: 10/21/2018 7:00 AM INDICATION: Abdominal pain. COMPARISON: CT dated 10/20/2018 TECHNIQUE: Multi planar multi sequential MR images obtained of the abdomen using MRCP protocol before and after administration of 13 mL of Mu ltiHance. FINDINGS: Loss of signal on out of phase images, representin g hepatic steatosis. No focal hepatic lesion. Gallbladder is surgically absent . Common bile duct is within normal limits without evidence of dilatation or f illing defect. Spleen, pancreas, and adrenal glands are unremarkable. Pos tsurgical changes of left partial nephrectomy. No renal mass or hydronephrosis . Visualized bowel loops are unremarkable. No evidence of bowel obstruction. No lymphadenopathy. No acute osseous abnormality. IMPRESSION: Unremark able MRCP exam. No acute infiltrate process in the abdomen. Normal common bi le duct. Hepatic steatosis. Signed by: Dr. Anni Ponce i, MD on 10/21/2018 11:31 AM Dictated By: ANNI BAPTISTE MD 1131 Transcribed By: GARO on 9 1131 COPY TO: NATTY COOK MD ABDOMEN ACUTE SERIES W/PA CXR 2018-10-21 07:14:00 [place] [address] Patient Name: SASHA POPE MR #: [id number] : 1965 Age/Sex: 53/F Req #: [id number] Adm Physician: CIRO HERNANDEZ MD Ordered by: DEISY DE LA FUENTE MD Report #: [id number] Location: MED/SURG2 Room/Bed: [facility] Procedure: DX/ABDOMEN ACUTE SERIES W/PA CXR Exam Date: 10/21/18 Exam Time: 0640 REPORT STA TUS: Signed EXAMINATION: ABDOMEN ACUTE SERIES W/PA CXR INDICATION: abdominal pain COMPARISON: CT abdomen and pelvis 10/20/2018 at 0048 hours an d 1154 hours FINDINGS: TUBES and LINES: Loop recorder projects over the left chest. LUNGS: Lungs are well inflated. Lungs are clear. There is no evidence of pneumonia or pulmonary edema. PLEURA: No pleural effu pam or pneumothorax. HEART AND MEDIASTINUM: The cardiomediastinal silhoue tte is unremarkable. BONES AND SOFT TISSUES: No acute osseous lesion. Soft tissues are unremarkable. ABDOMEN: No free air under the diaphragm. Surgical clips project over the right and left upper quadrants. Sutures in the right lower quadrant. Nonobstructive bowel gas pattern. IMPRESSION: No acute thoracic abnormality. Nonobstructive bowel gas pattern. Signed by: DR. Lopez Henson MD on 10/21/2018 7:18 AM Dictated By: LOPEZ HENSON MD 7 Transcribed By: GARO on 10/21/18717 COPY TO: DEISY DE LA FUENTE MD CT ABDOMEN/PELVIS [id number] 14:05:[address] [address] Patient Name: SASHA POPE MR #: [id number] : 1965 Age/Sex: 53[id number] Req #: [id number] Adm Physician: CIRO HERNANDEZ MD Ordered by: CIRO HERNANDEZ MD Report #: [id number] Location: [facility]/SURG2 Room/Bed: [facility] Procedure: [id number]/CT ABDOMEN/PELVIS W Exam Date: 10/20/18 Exam Time: 1150 REPORT STATUS: Signed EXAM: CT Abdomen and Pelvis WITH contrast INDICATION: Right sided abdominal pain. COMPARISON: CT abdomen and pelvis 10/20/2018 at 0048 hours TECHNIQUE: Abdomen and pelvis were scanned utilizing a multidetector helical scanner from the lung base to the pubic symphysis with administration of IV contrast. C oronal and sagittal reformations were obtained. Routine protocol was performed . Dose modulation, iterative reconstruction and/or weight based adjustment of the mA/kV was utilized to reduce the radiation dose to as low as reasonably achievable. IV CONTRAST: 100 cc of Isovue-370 ORAL CONTRAST: Wa ter COMPLICATIONS: None RADIATION DOSE: Total DLP: 417.76 mGy*cm Estimated effective dose: (DLP x 0.015 x size factor) mSv FINDINGS: LINES and TUBES: None. LOWER THORAX: Unremarkab le HEPATOBILIARY: Fatty infiltration of the liver. No focal hepatic lesion s. No biliary ductal dilation. GALLBLADDER: Cholecystectomy. SPLEE N: No splenomegaly. PANCREAS: No focal masses or ductal dilatation. ADRENALS: No adrenal nodules KIDNEYS/URETERS: Stable postsurgical martines ges of partial left upper pole nephrectomy. No hydronephrosis. No cystic or so lid mass lesions. No stones. GI TRACT: No abnormal distention, wall thicke quynh, or evidence of bowel obstruction. Diverticulosis without evidence of div erticulitis. There are post surgical changes of appendectomy. PELVIC ORGA NS/BLADDER: Hysterectomy. No adnexal masses. Underdistended bladder, limiting evaluation. Pelvic calcification superior to the bladder and just underneath t he colon mimics a bladder stone but on the basis of the sagittal reformations appears outside of the bladder. LYMPH NODES: No lymphadenopathy. VESSE LS: Atherosclerotic calcification. PERITONEUM / RETROPERITONEUM: No free ai r or fluid. BONES: Mild degenerative changes in the lumbar spine. SOFT TISSUES: Unremarkable. IMPRESSION: 1. Fatty infiltration of the liver. 2. Diverticulosis without evidence of inflammation. Signed by: Dr. Prerna Nuñez DO on 10/20/2018 2:23 PM Dictated By: PRERNA NUÑEZ DO 1423 Transcribed By: GARO on 10/20/18 1423 COPY TO: CIRO HERNANDEZ MD Lipase 2018-10-20 06:05:00* Test Item Value Reference Range Interpretation Comments Lipase (test code = 3040-3) 21 8-78 [facility] CenterLactic Acid Evynh8209-05-93 05:59:00* Test Item Value Reference Range Interpretation Comments Lactic Acid Level (test code = Lactic Acid Level) 11.9 4.5- 19.8 [facility] Shffr1854-08-90 05:59:00* Test Item Value Reference Range Interpretation Comments Lactic Acid Level (test code = Lactic Acid Level) 11.9 4.5- 19.8 [facility] Acid Kubad1845-23-47 05:59:00* Test Item Value Reference Range Interpretation Comments Lactic Acid Level (test code = Lactic Acid Level) 11.9 4.5- 19.8 [facility] Ojrqw0802-77-78 05:59:00* Test Item Value Reference Range Interpretation Comments Lactic Acid Level (test code = Lactic Acid Level) 11.9 4.5- 19.8 [facility] Swuvb5692-17-99 05:59:00* Test Item Value Reference Range Interpretation Comments Lactic Acid Level (test code = Lactic Acid Level) 11.9 4.5- 19.8 [facility] LFNDHTYB-GJGX5477-31-07 01:23:00 [facility] [address] [place] [address] Patient Name: SASHA POPE MR #: [id number] : 1965 Age/Sex: 53/F Req #: [id number] Adm Physician: Ordered by: CARLEEN ALBERT MD Report #: [id number] Location: [facility] Room/Bed: Procedure: 7 HOPD/CT ABD/PEL WO CONTRAST-HOPD Exam Date: 10/20/18 Exam Time: 0045 REPORT STAT US: Signed EXAM: CT Abdomen and Pelvis WITHOUT contrast INDICATION: Right upper quadrant pain. [id number] COMPARISON: CT abdomen and pelvis 05/03/2018 TECHNIQUE: Abdomen and pelvis were scanned utilizing a multidetector helical scanner from the lung base to the pubic symphysis without administra tion of IV contrast. Absence of intravenous contrast decreases sensitivity for detection of focal lesions and vascular pathology. Coronal and sagittal refor mations were obtained. Routine protocol was performed. IV CONTRAST: No ne ORAL CONTRAST: Water COMPLICATIONS: None RADIATI ON DOSE: Total DLP: 620.52 mGy*cm Estimated effective dose: (DLP x 0.015 x size factor) mSv Dose modulation, iterative reconstruction, and/ or weight based adjustment of the mA/kV was utilized to reduce the radiation d ose to as low as reasonably achievable. FINDINGS: LINES and TUBES: None. LOWER THORAX: Unremarkable HEPATOBILIARY: No focal hepatic lesions. No biliary ductal dilation. GALLBLADDER: Cholecystectomy. SPLEEN: No splenomegaly. PANCREAS: No focal masses or ductal dilatation. ADRENALS: No adrenal nodules KIDNEYS/URETERS: Stable postsurgical changes of partial left nephrectomy. No hydronephrosis. No cystic or solid ma ss lesions. No stones. GI TRACT: No abnormal distention, wall thickening, or evidence of bowel obstruction. There are diverticula within the colon with out evidence of diverticulitis. There are post surgical changes of appendectom y. PELVIC ORGANS/BLADDER: Hysterectomy. No adnexal masses. Underdistended b ladder, limiting evaluation. LYMPH NODES: No lymphadenopathy. VESSEL S: There is mild atherosclerotic disease in the aorta and major arterial branc hes. PERITONEUM / RETROPERITONEUM: No free air or fluid. BONES: There are degenerative changes in the lumbar spine. SOFT TISSUES: Unremarkable. IMPRESSION: No acute abnormalities. Signed by: DR. Michele Henson MD on 10/20/2018 1:31 AM Dictated By: LOPEZ Leach kika Signed By: LOPEZ HENSON MD on 10/20/18130 Transcribed By: GARO on 0 10/20/18130 COPY TO: CARLEEN ALBERT MD Stool Calprotectin 2018-07-05 13:59:00* Test Item Value Reference Range Interpretation Comments Stool Calprotectin (test code = 22314-4) <16 0-120 Concentration Interpretation Follow-Up<16 - 50 ug/g Normal None>50 -120 ug/g Borderline Re-evaluate in 4-6 weeks >120 ug/g Abnormal Repeat as clinically indicatedPerformed at: [employer] [id number] Director: Murali Mitchell MD, Phone: [phone] Specialty and Transplant Hospitaltool Vqnrfnyyxgfi6306-83-07 13:59:00* Test Item Value Reference Range Interpretation Comments Stool Calprotectin (test code = 85967-1) <16 0-120 Concentration Interpretation Follow-Up<16 - 50 ug/g Normal None>50 -120 ug/g Borderline Re-evaluate in 4-6 weeks >120 ug/g Abnormal Repeat as clinically indicatedPerformed at: [facility] [id number] Director: Murali Mitchell MD, Phone: [phone] Specialty and Transplant Hospitaltool Diqojhjhgpxv0906-35-58 13:59:00* Test Item Value Reference Range Interpretation Comments Stool Calprotectin (test code = 57525-7) <16 0-120 Concentration Interpretation Follow-Up<16 - 50 ug/g Normal None>50 -120 ug/g Borderline Re-evaluate in 4-6 weeks >120 ug/g Abnormal Repeat as clinically indicatedPerformed at: [address] [id number] Director: Murali Mitchell MD, Phone: [phone] Specialty and Transplant Hospitaltool Rpksbxsohfxu1215-80-85 13:59:00* Test Item Value Reference Range Interpretation Comments Stool Calprotectin (test code = 67463-3) <16 0-120 Concentration Interpretation Follow-Up<16 - 50 ug/g Normal None>50 -120 ug/g Borderline Re-evaluate in 4-6 weeks >120 ug/g Abnormal Repeat as clinically indicatedPerformed at: [address] [id number] Director: Murali Mitchell MD, Phone: [phone] Specialty and Transplant Hospitaltool Sewhlkupvhey2618-28-04 13:59:00* Test Item Value Reference Range Interpretation Comments Stool Calprotectin (test code = 46810-0) <16 0-120 Concentration Interpretation Follow-Up<16 - 50 ug/g Normal None>50 -120 ug/g Borderline Re-evaluate in 4-6 weeks >120 ug/g Abnormal Repeat as clinically indicatedPerformed at: [address] [id number] Director: Murali Mitchell MD, Phone: [phone] [place], [place] [address]P LUMBAR, COMPLETE MIN 8WG6137-83-26 13:44:00 [place] [address] Patient Name: SASHA POPE MR #: [id number] : 1965 Age/Sex: 53/F Req #: [id number] Adm Physician: Ordered by: CIRO HERNANDEZ MD Report #: [id number] Location: RAD Room/Bed: Procedure: 8030-4061 DX/SP LUMBAR, COMPLETE MIN 4VW Exam Date: 07/04/18 Exam T alden: 1220 REPORT STATUS: Signed EXAM: lumbar spine, 2 view, AP and supine lateral; Two view radiographs of the sacrum AP and lateral INDICATION: Lumbar spondylolysis. COMPARISON: CT Abdomen/Pelvis 05/03/18. FINDINGS: BONES: Minimal retrolisthesis of L5 o n S1. No evidence of pars defect. No acute displaced fractures. Vertebral lucia dy heights are preserved. DISCS: Minimal degenerative disc changes. JOINTS: The facet joints and sacroiliac joints are unremarkable. SOFT TI SSUES: Unremarkable OTHER: Status post cholecystectomy. Additional clip s project over the posterior and left abdomen. IMPRESSION: No acute ra diographic findings in the lumbar spine or sacrum. Minimal degenerative di sc changes of the lumbar spine. Signed by: Dr. Ishmael Kathleen MD on 8 1:55 PM Dictated By: ISHMAEL KATHLEEN MD 1354 Transcribed By: GARO on 07/04/18 135 COPY TO: CIRO HERNANDEZ MD SACRUM [id number] 13:44:00 [place] [address] Patient Name: SASHA POPE MR #: [id number] : 1965 Age/Sex: 53/F Req #: [id number] Adm Physician: Ordered by: CIRO HERNANDEZ MD Report #: [id number] Location: RAD Room/Bed: Procedure: [id number] DX/SA ROSENDO X-RAY Exam Date: 07/04/18 Exam Time: 1220 REPORT STATUS: Signed EXAM: lumbar sp ine, 2 view, AP and supine lateral; Two view radiographs of the sacrum AP and lateral INDICATION: Lumbar spondylolysis. COMPARISON: CT Abdomen/Pelvis 05/03/18. FINDINGS: BONES: Minimal retrolisthesis of L5 on S1. No eviden ce of pars defect. No acute displaced fractures. Vertebral body heights are preserved. DISCS: Minimal degenerative disc changes. JOINTS: The facet joints and sacroiliac joints are unremarkable. SOFT TISSUES: Unrema rkable OTHER: Status post cholecystectomy. Additional clips project over the posterior and left abdomen. IMPRESSION: No acute radiographic find ings in the lumbar spine or sacrum. Minimal degenerative disc changes of t he lumbar spine. Signed by: Dr. Ishmael Kathleen MD on 07/04/2018 1:55 PM Dictated By: ISHMAEL KATHLEEN MD 1354 Transcribed By: GARO on 07/04/18 1355 COPY TO: CIRO HERNANDEZ MD Clostridium Difficile Toxin A & [id number] 13:03:00* Test Item Value Reference Range Interpretation Comments Clostridium Difficile Toxin A & B (test code = 148264047) NEGATIVE NEGATIVE Testing on stool aspirate specimens is outside beam worker claims since specime n type not validated on this assay.[facility] Clostridium Difficile Toxin A & [id number] 13:03:00* Test Item Value Reference Range Interpretation Comments Clostridium Difficile Toxin A & B (test code = 184228917) NEGATIVE NEGATIVE Testing on stool aspirate specimens is outside beam worker claims since specime n type not validated on this assay.[facility] Clostridium Difficile Toxin A & [id number] 13:03:00* Test Item Value Reference Range Interpretation Comments Clostridium Difficile Toxin A & B (test code = 658430144) NEGATIVE NEGATIVE Testing on stool aspirate specimens is outside beam worker claims since specime n type not validated on this assay.[facility] Clostridium Difficile Toxin A & [id number] 13:03:00* Test Item Value Reference Range Interpretation Comments Clostridium Difficile Toxin A & B (test code = 992304956) NEGATIVE NEGATIVE Testing on stool aspirate specimens is outside beam worker claims since specime n type not validated on this assay.[facility] Clostridium Difficile Toxin A & [id number] 13:03:00* Test Item Value Reference Range Interpretation Comments Clostridium Difficile Toxin A & B (test code = 034754614) NEGATIVE NEGATIVE Testing on stool aspirate specimens is outside beam worker claims since specime n type not validated on this assay.[facility] Lactoferrin (LAB)2018-06-29 14:35:00* Test Item Value Reference Range Interpretation Comments Stool Lactoferrin (LAB) (test code = 81654-1) NEGATIVE NEGATIVE Testing on stool aspirate specimens is outside beam worker claims since specime n type not validated on this assay.[facility]odium Ikqke8981-16-80 05:20:00* Test Item Value Reference Range Interpretation Comments Sodium Level (test code = 2951-2) 142 136-145 [facility]Potassium Pmjyh8752-65-79 05:20:00* Test Item Value Reference Range Interpretation Comments Potassium Level (test code = 2823-3) 3.8 3.5-5.1 [facility] CenterChloride Tvlpm7553-31-95 05:20:00* Test Item Value Reference Range Interpretation Comments Chloride Level (test code = 2075-0) 109 98-107 H [facility] CenterCarbon Dioxide Cxxmp5067-86-47 05:20:00* Test Item Value Reference Range Interpretation Comments Carbon Dioxide Level (test code = 2028-9) 23 22-29 [facility] CenterAnion Oiq3476-45-63 05:20:00* Test Item Value Reference Range Interpretation Comments Anion Gap (test code = 59492-8) 13.8 8-16 [facility] CenterBlood Urea Ipaqtoxt9002-33-25 05:20:00* Test Item Value Reference Range Interpretation Comments Blood Urea Nitrogen (test code = 3094-0) 5 7-26 L [facility] CenterCreatinine2018-10-20 05:20:00* Test Item Value Reference Range Interpretation Comments Creatinine (test code = 2160-0) 0.79 0.57-1.11 [facility] CenterBUN/Creatinine Bgvax1124-58-17 05:20:00* Test Item Value Reference Range Interpretation Comments BUN/Creatinine Ratio (test code = 3097-3) 6 6-25 [facility] CenterEstimat Glomerular Filtration Rate 2018-06-04 05:20:00* Test Item Value Reference Range Interpretation Comments Estimat Glomerular Filtration Rate (test code = 418233765) > 60 >60 Ranges were taken from the National Kidney Disease Education Program and the [facility] literature.Reference ranges:60 or greater: Nusbgz86-25 ( for 3 consecutive months): Chronic kidney disease 15 or less: Kidney failureMethodist [facility] Medical CenterGlucose Uddsa8404-53-60 05:20:00* Test Item Value Reference Range Interpretation Comments Glucose Level (test code = QNQ5426) 101 74-118 [facility] CenterCalcium Iadwa8852-59-50 05:20:00* Test Item Value Reference Range Interpretation Comments Calcium Level (test code = 70013-8) 9.1 8.4-10.2 [facility] CenterTotal Ckgmsexfg9100-03-22 05:20:00* Test Item Value Reference Range Interpretation Comments Total Bilirubin (test code = 1975-2) 0.3 0.2-1.2 [facility] CenterAspartate Amino Transf (AST/SGOT) 2018-06-04 05:20:00* Test Item Value Reference Range Interpretation Comments Aspartate Amino Transf (AST/SGOT) (test code = Aspartate Amino Transf (AST/SGOT)) 36 5-34 H [facility] CenterAlanine Aminotransferase (ALT/SGPT) 2018-06-04 05:20:00* Test Item Value Reference Range Interpretation Comments Alanine Aminotransferase (ALT/SGPT) (test code = 1742-6) 41 0-55 [facility] CenterTotal Lbskbpx3305-55-09 05:20:00* Test Item Value Reference Range Interpretation Comments Total Protein (test code = 2885-2) 6.5 6.5-8.1 [facility] CenterAlbumin2018-10-20 05:20:00* Test Item Value Reference Range Interpretation Comments Albumin (test code = 1751-7) 3.1 3.5-5.0 L [facility] CenterGlobulin2018-10-20 05:20:00* Test Item Value Reference Range Interpretation Comments Globulin (test code = 95097-5) 3.4 2.3-3.5 [facility] CenterAlbumin/Globulin Lwzto8389-88-19 05:20:00 * Test Item Value Reference Range Interpretation Comments Albumin/Globulin Ratio (test code = 1759-0) 0.9 0.8-2.0 [facility] CenterAlkaline Kjovvkzopue3793-21-40 05:20:00* Test Item Value Reference Range Interpretation Comments Alkaline Phosphatase (test code = 6768-6) 66 40-150 [facility] CenterWhite Blood Jrbmi8691-81-67 05:17:00* Test Item Value Reference Range Interpretation Comments White Blood Count (test code = 6690-2) 5.28 4.8-10.8 [facility] CenterRed Blood Cmlre0122-69-50 05:17:00* Test Item Value Reference Range Interpretation Comments Red Blood Count (test code = 789-8) 3.82 3.6-5.1 [facility] CenterHemoglobin2018-10-20 05:17:00* Test Item Value Reference Range Interpretation Comments Hemoglobin (test code = 50359-0) 10.6 12.0-16.0 L [facility] CenterHematocrit2018-10-20 05:17:00* Test Item Value Reference Range Interpretation Comments Hematocrit (test code = 4544-3) 32.9 34.2-44.1 L [facility] CenterMean Corpuscular Tjsgsa5432-82-38 05:17:00* Test Item Value Reference Range Interpretation Comments Mean Corpuscular Volume (test code = 787-2) 86.1 81-99 [facility] CenterMean Corpuscular Emadnepiwp9572-98-68 05:17:00* Test Item Value Reference Range Interpretation Comments Mean Corpuscular Hemoglobin (test code = 785-6) 27.7 28-32 L [facility] CenterMean Corpuscular Hemoglobin Concent 2018-06-04 05:17:00* Test Item Value Reference Range Interpretation Comments Mean Corpuscular Hemoglobin Concent (test code = 786-4) 32.2 31-35 [facility] CenterRed Cell Distribution Jqycf7598-40-62 05:17:00* Test Item Value Reference Range Interpretation Comments Red Cell Distribution Width (test code = 15735-0) 15.5 11.7 -14.4 H [facility] CenterPlatelet Pakuc3835-28-74 05:17:00* Test Item Value Reference Range Interpretation Comments Platelet Count (test code = 777-3) 169 140-360 [facility] CenterNeutrophils (%) (Auto)2018-06-04 05:17:00 * Test Item Value Reference Range Interpretation Comments Neutrophils (%) (Auto) (test code = 73918-4) 53.2 38.7-80.0 [facility] CenterLymphocytes (%) (Auto)2018-06-04 05:17:00 * Test Item Value Reference Range Interpretation Comments Lymphocytes (%) (Auto) (test code = 736-9) 35.6 18.0-39.1 [facility] CenterMonocytes (%) (Auto)2018-06-04 05:17:00* Test Item Value Reference Range Interpretation Comments Monocytes (%) (Auto) (test code = 5905-5) 7.6 4.4-11.3 [facility] CenterEosinophils (%) (Auto)2018-06-04 05:17:00 * Test Item Value Reference Range Interpretation Comments Eosinophils (%) (Auto) (test code = 713-8) 3.2 0.0-6.0 [facility] CenterBasophils (%) (Auto)2018-06-04 05:17:00* Test Item Value Reference Range Interpretation Comments Basophils (%) (Auto) (test code = 706-2) 0.4 0.0-1.0 [facility] CenterIM GRANULOCYTES %2018-06-04 05:17:00* Test Item Value Reference Range Interpretation Comments IM GRANULOCYTES % (test code = IM GRANULOCYTES %) 0.0 0.0- 1.0 [facility] CenterNeutrophils # (Auto)2018-06-04 05:17:00* Test Item Value Reference Range Interpretation Comments Neutrophils # (Auto) (test code = 751-8) 2.8 2.1-6.9 [facility] CenterLymphocytes # (Auto)2018-06-04 05:17:00* Test Item Value Reference Range Interpretation Comments Lymphocytes # (Auto) (test code = 65425-8) 1.9 1.0-3.2 [facility] CenterMonocytes # (Auto)2018-06-04 05:17:00* Test Item Value Reference Range Interpretation Comments Monocytes # (Auto) (test code = 742-7) 0.4 0.2-0.8 [facility] CenterEosinophils # (Auto)2018-06-04 05:17:00* Test Item Value Reference Range Interpretation Comments Eosinophils # (Auto) (test code = 711-2) 0.2 0.0-0.4 [facility] CenterBasophils # (Auto)2018-06-04 05:17:00* Test Item Value Reference Range Interpretation Comments Basophils # (Auto) (test code = 704-7) 0.0 0.0-0.1 [facility] CenterAbsolute Immature Granulocyte (auto 2018-06-04 05:17:00* Test Item Value Reference Range Interpretation Comments Absolute Immature Granulocyte (auto (jesus t code = Absolute Immature Granulocyte (auto) 0 0-0.1 [facility] Hospitaltool Occult Qbfuz8203-29-26 12:23:00* Test Item Value Reference Range Interpretation Comments Stool Occult Blood (test code = 2335-8) NEGATIVE NEGATIVE [facility] VHLJCEPL2734-25-69 09:29:00 [facility] [address] [address] Patient Name: SASHA POPE MR #: [id number] : 1965 Age/Sex: 53/F Req #: [id number] Adm Physician: CIRO HERNANDEZ MD Ordered by: CIRO HERNANDEZ MD Report #: [id number] Location: [facility] Room/Bed: [place] [address] Procedure: [id number] US/U S ABDOMEN COMPLETE Exam Date: Exam Time: REPORT STATUS: Signed PROCEDURE: ABDOMI NAL ULTRASOUND COMPARISON: CT abdomen and pelvis with contrast 10/02/2017, CT abdomen pelvis without contrast 05/03/2018. INDICATIONS: ABDOMINAL PAIN TECHNIQUE: Garrett-scale and color sonographic images were obtained of the abdomen in transverse and sagittal planes. FINDINGS: Liver: 14.4 cm in length in right midclavicular line. Normal parenchymal echogenicity. No masses. Main portal vein: 0.6 cm in caliber. hepatopetal flow Gallblad anjelica: Surgically removed. Common Bile Duct: 0.2 cm in caliber. Right kidney: 9.9 cm in length. No solid or cystic mass lesion. No hydronephrosis. Normal renal cortical echogenicity. Left kidney: 9.3 cm in length. Contour def ormity of the upper pole in keeping with partial left nephrectomy. No solid o r cystic mass lesion. No hydronephrosis. Normal renal cortical echogenicity. Spleen: 10.4 cm in length. Uniform echotexture. Pancreas: The visualized portions are unremarkable. Inferior vena cava: Patent Aorta: Non-aneury smal Ascites: None CONCLUSION: Post surgical changes related to par tial left nephrectomy and cholecystectomy. Otherwise unremarkable abdom inal ultrasound. Dictated by: John Carrasquillo M.D. on 06/03/2018 at 9:29 Electronically approved by: John Carrasquillo M.D. on 06/03/2018 at 9:29 Dictated By: JOHN CARRASQUILLO MD 8 Transcribed By: JERALD on 06/03/18928 COPY TO: RALEIGH HERNANDEZ MD ABDOMEN COMP INCL UPR or ZKDZY7265-27-32 03:05:00 [address] [address] Patient Name: SASHA POPE MR #: [id number] : 1965 Age/Sex: 53/F Req #: [id number] Adm Physician: CIRO HERNANDEZ MD Ordered by: CIRO HERNANDEZ MD Report #: [id number] Location: [facility] Room/Bed: [place] [address] Procedure: [id number] DX/A BDOMEN COMP INCL UPR or DECUB Exam Date: 06/03/18 Ex am Time: 0235 REPORT STATUS: Signed EXAM: ABDOMEN COMP INCL UPR or DECUB DATE: 06/03/2018 2:12 AM Time stamp on exam: 0233 hours INDICATION: Abdominal pain COMPARISON: None FINDINGS: LINES/TUBES: None BOWEL PATTERN: No evidence for obstruction. SOFT TISSUES: Surgical clips compatible with cholecystectomy and multiple sutures in the right lower quadrant compatible with prior bowel repair/resect ion LUNG BASES: Lung bases are clear. Partially visualized cardiac monitori ng device BONES: No acute findings. IMPRESSION: Nonobstructive bow el gas pattern Signed by: Dr. Peter Cespedes M.D. on 06/03/2018 3:06 AM Dictated By: PETER CHAVIRA MD 5 Transcribed By: GARO on 06/03/18305 CO PY TO: CIRO HERNANDEZ MD Erythrocyte Sedimentation Payo3678-54-52 21:02:00* Test Item Value Reference Range Interpretation Comments Erythrocyte Sedimentation Rate (test code = 4537-7) 41 0- 20 H [facility] CenterErythrocyte Sedimentation Fjed6875-94-88 21:02:00* Test Item Value Reference Range Interpretation Comments Erythrocyte Sedimentation Rate (test code = 4537-7) 41 0- 20 H [facility] CenterErythrocyte Sedimentation Sxgd4652-84-58 21:02:00* Test Item Value Reference Range Interpretation Comments Erythrocyte Sedimentation Rate (test code = 4537-7) 41 0- 20 H [facility] CenterErythrocyte Sedimentation Zhar6700-96-27 21:02:00* Test Item Value Reference Range Interpretation Comments Erythrocyte Sedimentation Rate (test code = 4537-7) 41 0- 20 H [facility] CenterAmylase Ywwlo4801-61-79 20:51:00* Test Item Value Reference Range Interpretation Comments Amylase Level (test code = 1798-8) 63 25-125 [facility] CenterLipase2018-10-18 20:51:00* Test Item Value Reference Range Interpretation Comments Lipase (test code = 3040-3) 16 8-78 [facility] CenterAmylase Usxgg1687-70-24 20:51:00* Test Item Value Reference Range Interpretation Comments Amylase Level (test code = 1798-8) 63 25-125 [facility] CenterAmylase Mnhzg1257-17-96 20:51:00* Test Item Value Reference Range Interpretation Comments Amylase Level (test code = 1798-8) 63 25-125 [facility] CenterAmylase Vbbrr2202-89-05 20:51:00* Test Item Value Reference Range Interpretation Comments Amylase Level (test code = 1798-8) 63 25-125 [facility] CenterUrine NTN5079-46-82 20:33:00* Test Item Value Reference Range Interpretation Comments Urine WBC (test code = 5821-4) NONE 0-5 [facility] CenterUrine ITU2188-31-62 20:33:00* Test Item Value Reference Range Interpretation Comments Urine RBC (test code = 12106-3) NONE 0-5 [facility] CenterUrine Cbeklipo6284-97-74 20:33:00* Test Item Value Reference Range Interpretation Comments Urine Bacteria (test code = 54126-8) FEW NONE [facility] CenterUrine Epithelial Zcdew7144-15-79 20:33:00 * Test Item Value Reference Range Interpretation Comments Urine Epithelial Cells (test code = 27213-0) MODERATE NONE [facility] CenterUrine VSP1021-87-75 20:33:00* Test Item Value Reference Range Interpretation Comments Urine WBC (test code = 5821-4) NONE 0-5 [facility] CenterUrine YTF4787-16-44 20:33:00* Test Item Value Reference Range Interpretation Comments Urine RBC (test code = 48020-1) NONE 0-5 [facility] CenterUrine Sdltdtsv8708-08-61 20:33:00* Test Item Value Reference Range Interpretation Comments Urine Bacteria (test code = 15300-7) FEW NONE [facility] CenterUrine Epithelial Spzvn5226-33-52 20:33:00 * Test Item Value Reference Range Interpretation Comments Urine Epithelial Cells (test code = 30953-2) MODERATE NONE [facility] CenterUrine Gyxwr2638-71-81 20:23:00* Test Item Value Reference Range Interpretation Comments Urine Color (test code = 5778-6) YELLOW YELLOW [facility] CenterUrine Icymzng9534-56-46 20:23:00* Test Item Value Reference Range Interpretation Comments Urine Clarity (test code = 56117-4) SL CLOUDY CLEAR [facility] CenterUrine Specific Hngvgyx7940-23-36 20:23:00 * Test Item Value Reference Range Interpretation Comments Urine Specific [place] (test code = 5811-5) 1.005 1.010-1.02 5 L [facility] CenterUrine mV8581-69-55 20:23:00* Test Item Value Reference Range Interpretation Comments Urine pH (test code = 46300-0) 6 5-7 [facility] CenterU[facility] Leukocyte Invogzed2225-58-26 20:23:00* Test Item Value Reference Range Interpretation Comments Urine Leukocyte Esterase (test code = 5799-2) NEGATIVE NEGATIVE [facility] Ruxiede6702-61-14 20:23:00* Test Item Value Reference Range Interpretation Comments Urine Nitrite (test code = 64036-4) NEGATIVE NEGATIVE [facility] CenterUrine Rxiyclx6216-16-64 20:23:00* Test Item Value Reference Range Interpretation Comments Urine Protein (test code = 5804-0) NEGATIVE NEGATIVE [facility] Glucose (UA)2018-06-02 20:23:00* Test Item Value Reference Range Interpretation Comments Urine Glucose (UA) (test code = 2349-9) NEGATIVE NEGATIVE [facility] Eecgbim9557-43-75 20:23:00* Test Item Value Reference Range Interpretation Comments Urine Ketones (test code = 46906-8) NEGATIVE NEGATIVE [facility] Eyywlcnmmxsw9085-04-31 20:23:00* Test Item Value Reference Range Interpretation Comments Urine Urobilinogen (test code = 78423-7) 0.2 0.2-1 [facility] Jtievewzs4506-61-74 20:23:00* Test Item Value Reference Range Interpretation Comments Urine Bilirubin (test code = 1978-6) NEGATIVE NEGATIVE [facility] CenterU[facility] Iihbz8458-24-65 20:23:00* Test Item Value Reference Range Interpretation Comments Urine Blood (test code = 04115-7) TRACE NEGATIVE H [facility] CenterUrine Wlwwp2942-16-41 20:23:00* Test Item Value Reference Range Interpretation Comments Urine Color (test code = 5778-6) YELLOW YELLOW [facility] CenterUrine Jyxzrab6113-07-49 20:23:00* Test Item Value Reference Range Interpretation Comments Urine Clarity (test code = 81076-1) SL CLOUDY CLEAR [facility] CenterUrine Specific Qnqjfav6696-56-91 20:23:00 * Test Item Value Reference Range Interpretation Comments Urine Specific [place] (test code = 5811-5) 1.005 1.010-1.02 5 L [facility] CenterUrine sR9665-41-54 20:23:00* Test Item Value Reference Range Interpretation Comments Urine pH (test code = 96769-5) 6 5-7 [facility] CenterU[facility] Leukocyte Smxpplwn0806-04-09 20:23:00* Test Item Value Reference Range Interpretation Comments Urine Leukocyte Esterase (test code = 5799-2) NEGATIVE NEGATIVE [facility] Rinsgjm1613-64-08 20:23:00* Test Item Value Reference Range Interpretation Comments Urine Nitrite (test code = 68223-1) NEGATIVE NEGATIVE [facility] Imdtfda2967-49-68 20:23:00* Test Item Value Reference Range Interpretation Comments Urine Protein (test code = 5804-0) NEGATIVE NEGATIVE [facility] Glucose (UA)2018-06-02 20:23:00* Test Item Value Reference Range Interpretation Comments Urine Glucose (UA) (test code = 2349-9) NEGATIVE NEGATIVE [facility] CenterU[facility] Zhbhdqy0426-91-19 20:23:00* Test Item Value Reference Range Interpretation Comments Urine Ketones (test code = 72197-5) NEGATIVE NEGATIVE [facility] Efsnpezimplo9514-02-53 20:23:00* Test Item Value Reference Range Interpretation Comments Urine Urobilinogen (test code = 57401-1) 0.2 0.2-1 [facility] CenterU[facility] Dfrsjfjov8439-34-94 20:23:00* Test Item Value Reference Range Interpretation Comments Urine Bilirubin (test code = 1978-6) NEGATIVE NEGATIVE [facility] Gmcpm2673-80-59 20:23:00* Test Item Value Reference Range Interpretation Comments Urine Blood (test code = 03818-8) TRACE NEGATIVE H [facility] CenterCHEST SINGLE (NOT PORTABLE)2018-06-02 19:48:00 [facility] [address] [address] Patient Name: SASHA POPE MR #: [id number] : 1965 Age/Sex: 53/F Req #: [id number] [facility] Physician: CIRO HERNANDEZ MD Ordered by: CIRO HERNANDEZ MD Report #: [id number] Location: [facility] Room/Bed: [place] [address] Procedure: [id number] DX/C HEST SINGLE (NOT PORTABLE) Exam Date: 06/02/18 Exam Time: 1927 REPORT STATUS: Signed EXAMINATION: CHEST SINGLE (NOT PORTABLE) INDICATION: ABDOMEN PAIN [id number] COMPARISON: Chest radiograph 07/26/2017 FINDINGS: AP view TUBES and LINES: None. LUNGS: Lungs are well inflated. Lungs are clear. There is no evidence of pneumonia or pulmonary edema. PLEURA: No pleural effusion or pneumothorax. HEART AND MEDIAST INUM: The cardiomediastinal silhouette is unremarkable. Loop recorder project s over the left chest. BONES AND SOFT TISSUES: No acute osseous lesion. S oft tissues are unremarkable. UPPER ABDOMEN: No free air under the diaphr agm. IMPRESSION: No acute thoracic abnormality. 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 Physiologic excretion kidneys and urinary bladderNo foci of abnormal uptake noted to suggest sclerotic bony metastasis.Impression:No evidence of bony metastasis. Final Dictated by: MD Silvia, Lianet FDictated DT/TM: 05/27/2018 2:58 pmSigned by: MD Silvia, Lianet FSigned (Electronic Signature): 05/27/2018 3:00 pmCT ABD/PEL WO GMCAXYAM-HHXP6366-23-18 21:04:00 [address] [address] Patient Name: SASHA POPE MR #: [id number] : 1965 Age/Sex: 53/F Req #: [id number] Adm Physician: Ordered by: DARREN PERSAUD MD Report #: [id number] Location: [facility] Room /Bed: Procedure: HOPD/CT ABD/PEL WO CONTRAS T-HOPD Exam Date: 05/03/18 Exam Time: 1920 REP ORT STATUS: Signed EXAM: CT ABDOMEN AND PELVIS WITHOUT IV CONTRAST INDICATI ON: Right lower quadrant pain, history of kidney cancer COMPARISON: CT of abdomen and pelvis with IV contrast October 02, 2017 TECHNIQUE: The abdomen and pelvis were scanned using a multidetector helical scanner. Coronal and sa gittal reformations were obtained. Dose modulation, iterative reconstruction, and/or weight based adjustment of the mA/kV was utilized to reduce the radiati on dose to as low as reasonably achievable. Routine protocol performed. IV C ontrast: None Oral Contrast: None CTDIvol has been reviewed. It is below the limits set by the Radiation Protocol Committee (RPC). FINDINGS: LOWER THORAX: No consolidations LIVER: No masses BILIARY: Cholecystectomy. No d uctal dilation. SPLEEN: No masses PANCREAS: No masses ADRENALS: No nodules KIDNEYS: Normal appearance of the right kidney. Surgical changes of pa rtial left nephrectomy. No hydronephrosis. No nephroureterolithiasis. Tasneem l CT of the abdomen and pelvis. GI TRACT: No wall thickening or obstruction. S igmoid colon diverticulosis. Surgical changes around the cecum. No appendix. VESSELS: Minimal atherosclerotic changes of the abdominal aorta without a neurysm. PERITONEUM/RETROPERITONEUM: No free air or fluid LYMPH NODES: No ly mphadenopathy REPRODUCTIVE ORGANS: The uterus and ovaries are not visualize d. BLADDER: Normal SOFT TISSUES: Fat stranding in the anterior left abdom en may be postsurgical. Fat stranding left flank, consistent with postsurgical changes. BONES: No suspicious bone lesions. IMPRESSION: 1 interval par tial left nephrectomy. 2. Interval surgical changes of the cecum. 3. No CT findings to explain patient's right lower quadrant pain. No nephroureter olithiasis. Signed by: Dr. Kelvin Lake M.D. on 05/03/2018 9:13 PM Dictated By: KELVIN LAKE MD 12 Transcribed By: GARO on 05/03/182112 COPY TO: DARREN WINN MD CT Abdomen and Pelvis w/ [id number] 22:23:12 Patient: SASHA POPE am Date/Time03/03/2018 22:08 CDTReason for ExamFeverReportCT SCAN OF THE ABDOMEN AND PELVIS WITH CONTRASTLocation: [id number] HISTORY: Abdominal pain and fev er prior cholecystectomy. Kidney cancer surgery February 17, 2018.TECHNIQUE: Helical CT of the abdomen and pelvis was performed after the administration of 100 cc of Isovue 300 without complication. Exam was performed on an up-to-date helical CT scanner. Automatic exposure control and reduction dose techniques were utili zed. Coronal and sagittal images were reconstructed.DLP: 505 mGY*cmcomparis on study: No prior CTs. CT left kidney biopsy single image from 03/04/2018FINDING S:The visualized lung bases are clear. No evidence of pleural effusion. Liver is normal in size without masses or intrahepatic biliary dilatation. The gallbla dder is surgically absent. The pancreas, spleen, and adrenal glands are normal.T he right kidney is normal in size and cortical thickness, without masses, calcul i, pyelonephritis or hydronephrosis. 2 surgical clips are seen at the superior pole left kidney. There is a 4.6 x 4 x 4 cm heterogeneous area at the superior pole left kidney, at the postsurgical location. Unfortunately, there are no prio r studies for direct comparison to determine if of focal pyelonephritis could al so be present. Mild edema and postsurgical scarring is seen in the subcutaneous adipose tissues posterior lateral to the left kidney without a focal fluid nithin ection. No evidence of free fluid or adenopathy. There is no evidence of f ocal soft tissue mass or abscess. There is no evidence of pancreatitis , pancrea tic mass or calcifications.There is no evidence of diverticulitis, colitis, ileu s or bowel obstruction. There is no evidence of appendicitis. Surgical sutures a re seen at the cecum and there has likely been prior appendectomy. Scattered col on diverticulosis is present without diverticulitis. The visualized bony, muscul ar and vascular structures are unremarkable.In the pelvis, the bladder is tasneem l. There has been prior hysterectomy. There is no adnexal mass. Vascular structu res are unremarkable. No AAA. Bony structures are unremarkable without focal lyt ic or blastic lesions. There is no free air.IMPRESSION:1. There is a 4.6 heterog eneous area at the superior pole left kidney at the site of prior surgery.2. The re is some cortical hypodensity at the postsurgical area. Differential diagnoses includes pyelonephritis versus residual mass. Unfortunately, there are no prior CT scans for comparison. Clinical correlation recommended. Final Dict ated by: MD Rivera Maria VDictdinorah DT/TM: 03/03/2018 10:12 pmSigned by: Shay peoples MD, Maria VSigned (Electronic Signature): 03/03/2018 10:23 pmXR Chest 1 View [id number] 20:28:10Patient: SASHA POPE Date/Time03/03/2018 20:24 CDTReason for ExamFeverReportCHEST X-RAY 1 VIEWLocation: [id number] HISTORY: FeverTechnique:A single frontal view of the chest was obtained. Comparison made to prior study February 18, 2018Findings:Mild degenerative spurring is present at the right shoulder. The aortic, hilar, and cardiac outlines are normal. The lungs are clear of infiltrates or nodules. No pneumothorax. No pleural effusions. Small bilingual medical assistant overlies upper half of the cardiac silhouette.IMPRESSION:No acute findings. Clear lungs. Final Dictated by: MD Rivera Maria VDictated DT/TM: 03/03/2018 8:27 pmSigned by: MD Rivera Maria VSigned (Electronic Signature): 03/03/2018 8:28 pmXR Chest 1 View [id number] 08:07:13Patient: SASHA POPE Date/Time02/18/2018 05:41 CDTReason for Examchest tube removal;Other (please specify)[id number]: XR Chest 1 View FrontalHISTORY: Other (please specify);chest tube removalCOMPARISON: 02/17/2018FINDINGS:Cardiac recording device again noted.Moderate elevation of the right hemidiaphragm.Patchy perihilar airspace opacities. No pleural effusion or pneumothorax. The cardiac silhouette is within normal limits. No acute osseous abnormalities.IMPRESSION:Worsening atelectasis and/or pulmonary edema. Final Dictated by: MD Cortés VivekDictated DT/TM: 02/18/2018 8:06 amSigned by: MD Cortés VivekSigned (Electronic Signature): 02/18/2018 8:07 amXR Chest 2 [id number] 15:13:02Patient: SASHA POPE Date/Time02/17/2018 10:16 CDTReason for ExamChest tube placementReportDictation location G85Wabht 2 views.HISTORY: Chest tube placementCOMMENT: Compared to an earlier study the same day. There is improved aeration of the lung bases with no new consolidation, pneumothorax or significant effusion. The heart and mediastinum are normal and stable. A monitoring device is again seen. The chest wall is intact.IMPRESSION: Improved aeration of the lung bases with no acute findings in the chest. Final Dictated by: MD Perera Phebe CDictated DT/TM: 02/17/2018 3:11 pmSigned by: MD Perera Phebe CSigned (Electronic Signature): 02/17/2018 3:13 pmXR Chest 1 View [id number] 07:48:53Patient: SASHA POPE Date/Time02/17/2018 05:53 CDTReason for ExamLine rzxorzysnUreibrF66AJWG: XR Chest 1 View FrontalHISTORY: Line placementCOMPARISON: 02/16/2018FINDINGS:Left pleural catheter in unchanged position. Cardiac recorder device again noted.Mild elevation of the right hemidiaphragm.Patchy perihilar airspace opacities are similar to the prior study. Small left pleural effusion. No pneumothorax. The cardiac silhouette is within normal limits. No acute osseous abnormalities.IMPRESSION:Unchanged small left pleural effusion with perihilar pulmonary edema and/or pneumonia in both lungs. Final Dictated by: MD Moo, RositaekDictated DT/TM: 02/17/2018 7:46 amSigned by: MD Moo, KarlosSilatoya (Electronic Signature): 02/17/2018 7:48 amXR Chest 1 View Ltxzmcu4873-03-35 09:03:54Patient: SASHA POPE Date/Time02/16/2018 08:39 CDTReason for ExamPneumothoraxReportChest, one viewLOCATION CODE: R 16HISTORY: DyspneaCOMPARISON: 02/15/2018FINDINGS:The cardiac silhouette is normal in size. Mild bilateral mixed alveolar and interstitial lung opacities. No large pleural effusion or pneumothorax. The bones are intact. Right upper quadrant surgical clips are noted.IMPRESSION:Mild bilateral mixed alveolar and interstitial lung opacities. Final Dictated by: MD Umana Roman PDictated DT/TM: 02/16/2018 9:03 amSigned by: MD Umana Roman PSigned (Electron ic Signature): 02/16/2018 9:03 amXR Chest 1 View [id number] 14:09:46 Patient: SASHA POPE am Date/Time02/15/2018 13:54 CDTReason for ExamLine placementReportEXAMINATION: XR Chest 1 View Frontal.LOCATION: R16.HISTORY: Line placement.COMPARISON: Chest x- ray 01/31/2018.FINDINGS:Examination is limited due to portable technique, patient body habitus and low lung volumes.Cardiac silhouette/Mediastinal contour: Prom inence of cardiac silhouette.Lungs: Pulmonary vascular congestion. Likely left-s ided pleural effusion. There appears to be a drain projected over left lung base versus left upper quadrant. No radiographic evidence of pneumothorax.Osseous St ructures: Mild degenerative changes of thoracic spine.Additional Findings: Post operative clips project over right upper and left upper abdomen. Loop recorder d evice projects over left chest.IMPRESSION:Left lung base versus left upper quadr ant drainage catheter.Likely left-sided pleural effusion.Pulmonary vascular marcelino estion. Final Dictated by: MD Kohler Ankitkumar NDictated DT/TM: 2:03 pmSigned by: MD Kohler Ankitkumar NSigned (Electronic Signature): 02/15/2018 2:09 pmXR Chest 2 [id number] 12:23:28Patient: SASHA POPE Date/Time01/31/2018 12:11 CDTReason for ExamOther (please specify)ReportEXAM: CHEST 2 VIEWSINDICATION: PhysicalCOMPARISON: None availableTECHNIQUE: PA and lateral views of the chest.FINDINGS:The cardiomediastinal silhouette is normal. The lungs are clear bilaterally. No pneumothorax or pleural effusion is identified. The osseous structures are unremarkable.IMPRESSION:No acute cardiopulmonary pro cess.LOCATION: R16 Final Dictated by: MD Reyes Melanie CDictated DT/TM: 01/31/2018 12:23 pmSigned by: MD Reyes Melanie CSigned (Electronic S ignature): 01/31/2018 12:23 pmCT Biopsy [id number] 13:40:17Patient: SASHA POPE Date/Time01/20/2018 11:30 CDTReason for ExamD30.00ReportCT GUIDED CORE NEEDLE B IOPSY OF A LEFT RENAL MASSCLINICAL INDICATION: D30.00OPERATORS: Alan Tee MD SEDATION: Under physician supervision, intravenous Versed and fentanyl were admi nistered for moderate sedation. Pulse oximetry, heart rate, and blood pressure w ere continuously monitored by a dedicated IR trained nurse. The physician spent 30 minutes of continuous cclw-jb-ssxw sedation time with the patient.TECHNIQUE:T he risks, benefits, and alternatives to the procedure and sedation were explaine d. Informed written consent was obtained. The patient was placed in the prone p osition on the CT scanner, and the area was marked appropriately over the left f lank. The patient was prepped and draped using usual sterile technique. Local an esthesia was achieved with approximately 10 cc 1% lidocaine.A guide needle was c arefully advanced under CT guidance into the rounded exophytic mass in the poste rior left kidney. Then multiple 18 gauge core needle biopsies were made. The pa thologist/team lead present on site determined the sample to be adequate. The needle was removed and pressure held over the puncture site. A sterile dr essing was applied.The patient tolerated the procedure well. The patient was tra nsferred to the holding area in stable condition with appropriate orders on the chart.COMPLICATIONS: None immediateIMPRESSION:Technically successful CT-guided core needle biopsy of a left renal mass.Location: R16 Final Dictated b y: MD Tee Adam FDictated DT/TM: 01/20/2018 1:32 pmSigned by: MD Tee Adam FSigned (Electronic Signature): 01/20/2018 1:40 pmSodium Level 2017-10-02 01:14:00* Test Item Value Reference Range Interpretation Comments Sodium Level (test code = 2951-2) 137 136-145 [facility]Potassium Ljqbs3122-50-45 01:14:00* Test Item Value Reference Range Interpretation Comments Potassium Level (test code = 2823-3) 3.6 3.5-5.1 [facility] CenterChloride Derio5900-05-25 01:14:00* Test Item Value Reference Range Interpretation Comments Chloride Level (test code = 2075-0) 105 98-107 [facility] CenterCarbon Dioxide Jzcfz2085-41-59 01:14:00* Test Item Value Reference Range Interpretation Comments Carbon Dioxide Level (test code = 2028-9) 21 22-29 L [facility] CenterAnion Fvh0270-90-75 01:14:00* Test Item Value Reference Range Interpretation Comments Anion Gap (test code = 03250-6) 14.6 8-16 [facility] CenterBlood Urea Jzvjggpa9178-59-23 01:14:00* Test Item Value Reference Range Interpretation Comments Blood Urea Nitrogen (test code = 3094-0) 18 7-26 [facility] CenterCreatinine2018-02-17 01:14:00* Test Item Value Reference Range Interpretation Comments Creatinine (test code = 2160-0) 0.76 0.57-1.11 [facility] CenterBUN/Creatinine Iahgo6575-82-93 01:14:00* Test Item Value Reference Range Interpretation Comments BUN/Creatinine Ratio (test code = 3097-3) 24 6-25 [facility] CenterEstimat Glomerular Filtration Rate 2017-10-02 01:14:00* Test Item Value Reference Range Interpretation Comments Estimat Glomerular Filtration Rate (test code = 66540-2) 60- >60 Ranges were taken from the National Kidney Disease Education Program and the [facility] literature.Reference ranges:60 or greater: Unitix74-36 ( for 3 consecutive months): Chronic kidney disease 15 or less: Kidney failureMethodist Richardson Medical CenterGlucose Kjumt5049-18-12 01:14:00* Test Item Value Reference Range Interpretation Comments Glucose Level (test code = OCV0471) 117 74-118 [facility] CenterCalcium Gzwov8272-81-37 01:14:00* Test Item Value Reference Range Interpretation Comments Calcium Level (test code = 69291-1) 8.8 8.4-10.2 [facility] CenterTotal Mruchqpkl2346-37-05 01:14:00* Test Item Value Reference Range Interpretation Comments Total Bilirubin (test code = 1975-2) -0.3 0.2-1.2 [facility] CenterAspartate Amino Transf (AST/SGOT) 2017-10-02 01:14:00* Test Item Value Reference Range Interpretation Comments Aspartate Amino Transf (AST/SGOT) (test code = Aspartate Amino Transf (AST/SGOT)) 31 5-34 [facility] CenterAlanine Aminotransferase (ALT/SGPT) 2017-10-02 01:14:00* Test Item Value Reference Range Interpretation Comments Alanine Aminotransferase (ALT/SGPT) (test code = 1742-6) 36 0-55 [facility] CenterTotal Ktyokvo2033-33-82 01:14:00* Test Item Value Reference Range Interpretation Comments Total Protein (test code = 2885-2) 7.8 6.5-8.1 [facility] CenterAlbumin2018-02-17 01:14:00* Test Item Value Reference Range Interpretation Comments Albumin (test code = 1751-7) 3.5 3.5-5.0 [facility] CenterGlobulin2018-02-17 01:14:00* Test Item Value Reference Range Interpretation Comments Globulin (test code = 68356-7) 4.3 2.3-3.5 H [facility] CenterAlbumin/Globulin Ucngo1439-81-05 01:14:00 * Test Item Value Reference Range Interpretation Comments Albumin/Globulin Ratio (test code = 1759-0) 0.8 0.8-2.0 [facility] CenterAlkaline Ngogetdwmuk5490-69-38 01:14:00* Test Item Value Reference Range Interpretation Comments Alkaline Phosphatase (test code = 6768-6) 80 40-150 [facility] CenterAmylase Frnhj7880-73-82 01:14:00* Test Item Value Reference Range Interpretation Comments Amylase Level (test code = 1798-8) 113 25-125 [facility] CenterLipase2018-02-17 01:14:00* Test Item Value Reference Range Interpretation Comments Lipase (test code = 3040-3) 31 8-78 [facility]odium Huxxm0019-50-87 01:14:00* Test Item Value Reference Range Interpretation Comments Sodium Level (test code = 2951-2) 137 136-145 [facility] CenterPotassium Iifji4919-64-11 01:14:00* Test Item Value Reference Range Interpretation Comments Potassium Level (test code = 2823-3) 3.6 3.5-5.1 [facility] CenterChloride Xfgfo5058-56-49 01:14:00* Test Item Value Reference Range Interpretation Comments Chloride Level (test code = 2075-0) 105 98-107 [facility] CenterCarbon Dioxide Kiavp4519-26-16 01:14:00* Test Item Value Reference Range Interpretation Comments Carbon Dioxide Level (test code = 2028-9) 21 22-29 L [facility] CenterAnion Dvv9665-70-42 01:14:00* Test Item Value Reference Range Interpretation Comments Anion Gap (test code = 99673-9) 14.6 8-16 [facility] CenterBlood Urea Zmwepbxm7334-19-03 01:14:00* Test Item Value Reference Range Interpretation Comments Blood Urea Nitrogen (test code = 3094-0) 18 7-26 [facility] CenterCreatinine2018-02-17 01:14:00* Test Item Value Reference Range Interpretation Comments Creatinine (test code = 2160-0) 0.76 0.57-1.11 [facility] CenterBUN/Creatinine Peskh1002-61-27 01:14:00* Test Item Value Reference Range Interpretation Comments BUN/Creatinine Ratio (test code = 3097-3) 24 6-25 [facility] CenterEstimat Glomerular Filtration Rate 2017-10-02 01:14:00* Test Item Value Reference Range Interpretation Comments Estimat Glomerular Filtration Rate (test code = 246261437) 60- >60 Ranges were taken from the National Kidney Disease Education Program and the [facility] literature.Reference ranges:60 or greater: Zomker81-40 ( for 3 consecutive months): Chronic kidney disease 15 or less: Kidney failureMethodist Richardson Medical CenterGlucose Gczdc4952-67-70 01:14:00* Test Item Value Reference Range Interpretation Comments Glucose Level (test code = NCP7500) 117 74-118 [facility] CenterCalcium Tlgas4561-85-66 01:14:00* Test Item Value Reference Range Interpretation Comments Calcium Level (test code = 19021-1) 8.8 8.4-10.2 [facility] CenterTosanpete [facility] hospital Lxudqmypz1145-02-54 01:14:00* Test Item Value Reference Range Interpretation Comments Total Bilirubin (test code = 1975-2) -0.3 0.2-1.2 [facility] CenterAspartate Amino Transf (AST/SGOT) 2017-10-02 01:14:00* Test Item Value Reference Range Interpretation Comments Aspartate Amino Transf (AST/SGOT) (test code = Aspartate Amino Transf (AST/SGOT)) 31 5-34 [facility] CenterAlanine Aminotransferase (ALT/SGPT) 2017-10-02 01:14:00* Test Item Value Reference Range Interpretation Comments Alanine Aminotransferase (ALT/SGPT) (test code = 1742-6) 36 0-55 [facility] CenterTotal Egwdasv4769-10-91 01:14:00* Test Item Value Reference Range Interpretation Comments Total Protein (test code = 2885-2) 7.8 6.5-8.1 [facility] CenterAlbumin2018-02-17 01:14:00* Test Item Value Reference Range Interpretation Comments Albumin (test code = 1751-7) 3.5 3.5-5.0 [facility] CenterGlobulin2018-02-17 01:14:00* Test Item Value Reference Range Interpretation Comments Globulin (test code = 60964-2) 4.3 2.3-3.5 H [facility] CenterAlbumin/Globulin Jcuub3364-39-27 01:14:00 * Test Item Value Reference Range Interpretation Comments Albumin/Globulin Ratio (test code = 1759-0) 0.8 0.8-2.0 [facility] CenterAlkaline Djuurvijlcd2516-12-86 01:14:00* Test Item Value Reference Range Interpretation Comments Alkaline Phosphatase (test code = 6768-6) 80 40-150 [facility] CenterAmylase Ppniu7326-23-73 01:14:00* Test Item Value Reference Range Interpretation Comments Amylase Level (test code = 1798-8) 113 25-125 [facility] CenterLipase2018-02-17 01:14:00* Test Item Value Reference Range Interpretation Comments Lipase (test code = 3040-3) 31 8-78 [facility] CenterUrine IAZ3951-89-08 00:59:00* Test Item Value Reference Range Interpretation Comments Urine WBC (test code = 5821-4) 0-5 0-5 [facility] CenterUrine UVE8917-96-09 00:59:00* Test Item Value Reference Range Interpretation Comments Urine RBC (test code = 25815-4) 0-5 0-5 [facility] CenterUrine Cvmvpxdj1029-47-61 00:59:00* Test Item Value Reference Range Interpretation Comments Urine Bacteria (test code = 17372-8) RARE NONE [facility] CenterUrine Epithelial Bvcae0871-33-08 00:59:00 * Test Item Value Reference Range Interpretation Comments Urine Epithelial Cells (test code = 21064-0) FEW NONE [facility] CenterUrine EPE3758-72-62 00:59:00* Test Item Value Reference Range Interpretation Comments Urine WBC (test code = 5821-4) 0-5 0-5 [facility] CenterUrine AKE4636-08-76 00:59:00* Test Item Value Reference Range Interpretation Comments Urine RBC (test code = 86363-4) 0-5 0-5 [facility] CenterUrine Mmypjsaw7580-22-88 00:59:00* Test Item Value Reference Range Interpretation Comments Urine Bacteria (test code = 42816-8) RARE NONE [facility] CenterUrine Epithelial Ghngi6341-70-70 00:59:00 * Test Item Value Reference Range Interpretation Comments Urine Epithelial Cells (test code = 34543-6) FEW NONE [facility] CenterUrine Vtvpw7044-34-83 00:54:00* Test Item Value Reference Range Interpretation Comments Urine Color (test code = 5778-6) YELLOW YELLOW [facility] CenterUrine Skuhksm0979-83-03 00:54:00* Test Item Value Reference Range Interpretation Comments Urine Clarity (test code = 57897-9) CLEAR CLEAR [facility] CenterUrine Specific Rdgmrlo2839-56-42 00:54:00 * Test Item Value Reference Range Interpretation Comments Urine Specific [place] (test code = 5811-5) 1.005 1.010-1.02 5 L [facility] CenterUrine [id number] 00:54:00* Test Item Value Reference Range Interpretation Comments Urine pH (test code = 49064-4) 6.5 5-7 [facility] CenterUrine Leukocyte Xymsqcee9512-21-43 00:54:00* Test Item Value Reference Range Interpretation Comments Urine Leukocyte Esterase (test code = 5799-2) NEGATIVE NEGATIVE [facility] Mulgzqh4879-54-48 00:54:00* Test Item Value Reference Range Interpretation Comments Urine Nitrite (test code = 15406-7) NEGATIVE NEGATIVE [facility] CenterUrine Iipvyiz5498-90-22 00:54:00* Test Item Value Reference Range Interpretation Comments Urine Protein (test code = 5804-0) NEGATIVE NEGATIVE [facility] CenterUrine Glucose (UA)2017-10-02 00:54:00* Test Item Value Reference Range Interpretation Comments Urine Glucose (UA) (test code = 2349-9) NEGATIVE NEGATIVE [facility] CenterUrine Nxfpgov2949-26-83 00:54:00* Test Item Value Reference Range Interpretation Comments Urine Ketones (test code = 64758-3) NEGATIVE NEGATIVE [facility] CenterUrine Zpbcuqmpefsm7648-12-73 00:54:00* Test Item Value Reference Range Interpretation Comments Urine Urobilinogen (test code = 45341-2) 0.2 0.2-1 [facility] CenterUrine Uhazdokgf0099-72-97 00:54:00* Test Item Value Reference Range Interpretation Comments Urine Bilirubin (test code = 1978-6) NEGATIVE NEGATIVE [facility] CenterU[facility] Tywtn3298-09-60 00:54:00* Test Item Value Reference Range Interpretation Comments Urine Blood (test code = 44203-3) NEGATIVE NEGATIVE [facility] CenterUrine Ngnue1358-59-64 00:54:00* Test Item Value Reference Range Interpretation Comments Urine Color (test code = 5778-6) YELLOW YELLOW [facility] CenterUrine Rhhnige0008-18-40 00:54:00* Test Item Value Reference Range Interpretation Comments Urine Clarity (test code = 48866-5) CLEAR CLEAR [facility] Specific Sxnpxdo1691-24-51 00:54:00 * Test Item Value Reference Range Interpretation Comments Urine Specific [place] (test code = 5811-5) 1.005 1.010-1.02 5 L [facility] CenterUrine vU0025-59-53 00:54:00* Test Item Value Reference Range Interpretation Comments Urine pH (test code = 59430-4) 6.5 5-7 [facility] CenterU[facility] Leukocyte Ougqmdfx6151-27-85 00:54:00* Test Item Value Reference Range Interpretation Comments Urine Leukocyte Esterase (test code = 5799-2) NEGATIVE NEGATIVE [facility] CenterU[facility] Epmprdl1553-08-52 00:54:00* Test Item Value Reference Range Interpretation Comments Urine Nitrite (test code = 38937-4) NEGATIVE NEGATIVE [facility] CenterU[facility] Rvowqjr7917-33-07 00:54:00* Test Item Value Reference Range Interpretation Comments Urine Protein (test code = 5804-0) NEGATIVE NEGATIVE [facility] CenterUrine Glucose (UA)2017-10-02 00:54:00* Test Item Value Reference Range Interpretation Comments Urine Glucose (UA) (test code = 2349-9) NEGATIVE NEGATIVE [facility] CenterU[facility] Ysjjuao6177-41-06 00:54:00* Test Item Value Reference Range Interpretation Comments Urine Ketones (test code = 59571-5) NEGATIVE NEGATIVE [facility] CenterU[facility] Henwqrrxgkno5924-34-70 00:54:00* Test Item Value Reference Range Interpretation Comments Urine Urobilinogen (test code = 84448-1) 0.2 0.2-1 [facility] CenterU[facility] Axmkwbvey2856-62-76 00:54:00* Test Item Value Reference Range Interpretation Comments Urine Bilirubin (test code = 1978-6) NEGATIVE NEGATIVE [facility] CenterUrine Xjgbr4750-51-12 00:54:00* Test Item Value Reference Range Interpretation Comments Urine Blood (test code = 72368-0) NEGATIVE NEGATIVE [facility] CenterWhite Blood Eszrt8431-49-03 00:53:00* Test Item Value Reference Range Interpretation Comments White Blood Count (test code = 6690-2) 8.39 4.8-10.8 [facility] CenterRed Blood Ybqdk5323-70-30 00:53:00* Test Item Value Reference Range Interpretation Comments Red Blood Count (test code = 789-8) 4.23 3.6-5.1 [facility] CenterHemoglobin2018-02-17 00:53:00* Test Item Value Reference Range Interpretation Comments Hemoglobin (test code = 02226-3) 9.8 12.0-16.0 L [facility] CenterHematocrit2018-02-17 00:53:00* Test Item Value Reference Range Interpretation Comments Hematocrit (test code = 4544-3) 31.9 34.2-44.1 L [facility] CenterMean Corpuscular Ufnwhe9979-29-07 00:53:00* Test Item Value Reference Range Interpretation Comments Mean Corpuscular Volume (test code = 787-2) 75.4 81-99 L [facility] CenterMean Corpuscular Tuvgcwzwtd5181-78-55 00:53:00* Test Item Value Reference Range Interpretation Comments Mean Corpuscular Hemoglobin (test code = 785-6) 23.2 28-32 L [facility] CenterMean Corpuscular Hemoglobin Concent 2017-10-02 00:53:00* Test Item Value Reference Range Interpretation Comments Mean Corpuscular Hemoglobin Concent (test code = 786-4) 30.7 31-35 L [facility] CenterRed Cell Distribution Eqhyl7353-11-32 00:53:00* Test Item Value Reference Range Interpretation Comments Red Cell Distribution Width (test code = 98079-4) 17.0 11.7 -14.4 H [facility] CenterPlatelet Szvft7896-09-37 00:53:00* Test Item Value Reference Range Interpretation Comments Platelet Count (test code = 777-3) 246 140-360 [facility] CenterNeutrophils (%) (Auto)2017-10-02 00:53:00 * Test Item Value Reference Range Interpretation Comments Neutrophils (%) (Auto) (test code = 60173-7) 51.3 38.7-80.0 [facility] CenterLymphocytes (%) (Auto)2017-10-02 00:53:00 * Test Item Value Reference Range Interpretation Comments Lymphocytes (%) (Auto) (test code = 736-9) 37.8 18.0-39.1 [facility] CenterMonocytes (%) (Auto)2017-10-02 00:53:00* Test Item Value Reference Range Interpretation Comments Monocytes (%) (Auto) (test code = 5905-5) 6.1 4.4-11.3 [facility] CenterEosinophils (%) (Auto)2017-10-02 00:53:00 * Test Item Value Reference Range Interpretation Comments Eosinophils (%) (Auto) (test code = 713-8) 4.4 0.0-6.0 [facility] CenterBasophils (%) (Auto)2017-10-02 00:53:00* Test Item Value Reference Range Interpretation Comments Basophils (%) (Auto) (test code = 706-2) 0.2 0.0-1.0 [facility] CenterIM GRANULOCYTES %2017-10-02 00:53:00* Test Item Value Reference Range Interpretation Comments IM GRANULOCYTES % (test code = IM GRANULOCYTES %) 0.2 0.0- 1.0 [facility] CenterNeutrophils # (Auto)2017-10-02 00:53:00* Test Item Value Reference Range Interpretation Comments Neutrophils # (Auto) (test code = 751-8) 4.3 2.1-6.9 [facility] CenterLymphocytes # (Auto)2017-10-02 00:53:00* Test Item Value Reference Range Interpretation Comments Lymphocytes # (Auto) (test code = 41336-6) 3.2 1.0-3.2 [facility] CenterMonocytes # (Auto)2017-10-02 00:53:00* Test Item Value Reference Range Interpretation Comments Monocytes # (Auto) (test code = 742-7) 0.5 0.2-0.8 [facility] CenterEosinophils # (Auto)2017-10-02 00:53:00* Test Item Value Reference Range Interpretation Comments Eosinophils # (Auto) (test code = 711-2) 0.4 0.0-0.4 [facility] CenterBasophils # (Auto)2017-10-02 00:53:00* Test Item Value Reference Range Interpretation Comments Basophils # (Auto) (test code = 704-7) 0.0 0.0-0.1 [facility] CenterAbsolute Immature Granulocyte (auto 2017-10-02 00:53:00* Test Item Value Reference Range Interpretation Comments Absolute Immature Granulocyte (auto (jesus t code = Absolute Immature Granulocyte (auto) 0.02 0-0.1 [facility] CenterWhite Blood Eaffr5843-69-10 00:53:00* Test Item Value Reference Range Interpretation Comments White Blood Count (test code = 6690-2) 8.39 4.8-10.8 [facility] CenterRed Blood Cfwjm4449-76-09 00:53:00* Test Item Value Reference Range Interpretation Comments Red Blood Count (test code = 789-8) 4.23 3.6-5.1 [facility] CenterHemoglobin2018-02-17 00:53:00* Test Item Value Reference Range Interpretation Comments Hemoglobin (test code = 40736-3) 9.8 12.0-16.0 L [facility] CenterHematocrit2018-02-17 00:53:00* Test Item Value Reference Range Interpretation Comments Hematocrit (test code = 4544-3) 31.9 34.2-44.1 L [facility] CenterMean Corpuscular Infbhk1740-21-23 00:53:00* Test Item Value Reference Range Interpretation Comments Mean Corpuscular Volume (test code = 787-2) 75.4 81-99 L [facility] CenterMean Corpuscular Nevxwgmert2651-04-36 00:53:00* Test Item Value Reference Range Interpretation Comments Mean Corpuscular Hemoglobin (test code = 785-6) 23.2 28-32 L [facility] CenterMean Corpuscular Hemoglobin Concent 2017-10-02 00:53:00* Test Item Value Reference Range Interpretation Comments Mean Corpuscular Hemoglobin Concent (test code = 786-4) 30.7 31-35 L [facility] CenterRed Cell Distribution Krolw0479-44-27 00:53:00* Test Item Value Reference Range Interpretation Comments Red Cell Distribution Width (test code = 04908-5) 17.0 11.7 -14.4 H [facility] CenterPlatelet Ntohj5644-02-44 00:53:00* Test Item Value Reference Range Interpretation Comments Platelet Count (test code = 777-3) 246 140-360 [facility] CenterNeutrophils (%) (Auto)2017-10-02 00:53:00 * Test Item Value Reference Range Interpretation Comments Neutrophils (%) (Auto) (test code = 88645-4) 51.3 38.7-80.0 [facility] CenterLymphocytes (%) (Auto)2017-10-02 00:53:00 * Test Item Value Reference Range Interpretation Comments Lymphocytes (%) (Auto) (test code = 736-9) 37.8 18.0-39.1 [facility] CenterMonocytes (%) (Auto)2017-10-02 00:53:00* Test Item Value Reference Range Interpretation Comments Monocytes (%) (Auto) (test code = 5905-5) 6.1 4.4-11.3 [facility] CenterEosinophils (%) (Auto)2017-10-02 00:53:00 * Test Item Value Reference Range Interpretation Comments Eosinophils (%) (Auto) (test code = 713-8) 4.4 0.0-6.0 [facility] CenterBasophils (%) (Auto)2017-10-02 00:53:00* Test Item Value Reference Range Interpretation Comments Basophils (%) (Auto) (test code = 706-2) 0.2 0.0-1.0 [facility] CenterIM GRANULOCYTES %2017-10-02 00:53:00* Test Item Value Reference Range Interpretation Comments IM GRANULOCYTES % (test code = IM GRANULOCYTES %) 0.2 0.0- 1.0 [facility] CenterNeutrophils # (Auto)2017-10-02 00:53:00* Test Item Value Reference Range Interpretation Comments Neutrophils # (Auto) (test code = 751-8) 4.3 2.1-6.9 [facility] CenterLymphocytes # (Auto)2017-10-02 00:53:00* Test Item Value Reference Range Interpretation Comments Lymphocytes # (Auto) (test code = 88127-0) 3.2 1.0-3.2 [facility] CenterMonocytes # (Auto)2017-10-02 00:53:00* Test Item Value Reference Range Interpretation Comments Monocytes # (Auto) (test code = 742-7) 0.5 0.2-0.8 [facility] CenterEosinophils # (Auto)2017-10-02 00:53:00* Test Item Value Reference Range Interpretation Comments Eosinophils # (Auto) (test code = 711-2) 0.4 0.0-0.4 [facility] CenterBasophils # (Auto)2017-10-02 00:53:00* Test Item Value Reference Range Interpretation Comments Basophils # (Auto) (test code = 704-7) 0.0 0.0-0.1 [facility] CenterAbsolute Immature Granulocyte (auto 2017-10-02 00:53:00* Test Item Value Reference Range Interpretation Comments Absolute Immature Granulocyte (auto (jesus t code = Absolute Immature Granulocyte (auto) 0.02 0-0.1 [facility] CenterCreatine Kinase RK4578-88-00 06:56:00* Test Item Value Reference Range Interpretation Comments Creatine Kinase MB (test code = 09289-3) 0.80 0.00-5.00 [place] 77688017-12-12 06:56:00* Test Item Value Reference Range Interpretation Comments Troponin I (test code = QAT2375) 0.014 0-0.300 [facility] CenterCreatine Kinase GT9477-62-54 06:56:00* Test Item Value Reference Range Interpretation Comments Creatine Kinase MB (test code = 19693-1) 0.80 0.00-5.00 [place] 77688017-12-12 06:56:00* Test Item Value Reference Range Interpretation Comments Troponin I (test code = AWG8080) 0.014 0-0.300 [facility]Cre[facility] Sfuslu3281-21-25 06:53:00* Test Item Value Reference Range Interpretation Comments Creatine Kinase (test code = 2157-6) 38 29-168 [facility] CenterCreatine Fogwwy9875-54-54 06:53:00* Test Item Value Reference Range Interpretation Comments Creatine Kinase (test code = 2157-6) 38 29-168 [facility] CenterProthrombin Dqkl2015-34-68 16:16:00* Test Item Value Reference Range Interpretation Comments Prothrombin Time (test code = 5902-2) 12.9 11.9-14.5 [facility] CenterProthromb Time International Ratio 2017-07-26 16:16:00* Test Item Value Reference Range Interpretation Comments Prothromb Time International Ratio (test code = 6301-6) 0.93 Oral Anticoagulant Therapy INR Values:1. Low Intensity Therapy 1.5 - 2.02 . Moderate Intensity Therapy 2.0 - 3.03. High Intensity Therapy(1) 2.5 - 3. 54. High Intensity Therapy(2) 3.0 - 4.05. Panic Value INR > 5.0 [facility] CenterActivated Partial Thromboplast Time 2017-07-26 16:16:00* Test Item Value Reference Range Interpretation Comments Activated Partial Thromboplast Time (test code = 62292-0) 24.4 23.8-35.5 [facility] CenterProthrombin Pnzj8048-17-07 16:16:00* Test Item Value Reference Range Interpretation Comments Prothrombin Time (test code = 5902-2) 12.9 11.9-14.5 [facility] CenterProthromb Time International Ratio 2017-07-26 16:16:00* Test Item Value Reference Range Interpretation Comments Prothromb Time International Ratio (test code = 6301-6) 0.93 Oral Anticoagulant Therapy INR Values:1. Low Intensity Therapy 1.5 - 2.02 . Moderate Intensity Therapy 2.0 - 3.03. High Intensity Therapy(1) 2.5 - 3. 54. High Intensity Therapy(2) 3.0 - 4.05. Panic Value INR > 5.0 [facility] CenterActivated Partial Thromboplast Time 2017-07-26 16:16:00* Test Item Value Reference Range Interpretation Comments Activated Partial Thromboplast Time (test code = 77410-6) 24.4 23.8-35.5 [facility] CenterTriglycerides Vjnte3552-74-33 06:54:00* Test Item Value Reference Range Interpretation Comments Triglycerides Level (test code = 2571-8) 161 0-149 H [facility] CenterCholesterol Btcuc6639-29-29 06:54:00* Test Item Value Reference Range Interpretation Comments Cholesterol Level (test code = 2093-3) 161 0-199 Less than 200 mg/dL Low Rqmz426 - 239 mg/dL Borderline Mpjj309 m g/dl and greater High Risk [facility] CenterLDL Efdcfgfcbqy5083-01-46 06:54:00* Test Item Value Reference Range Interpretation Comments LDL Cholesterol (test code = 66072-1) 81 60-130 [facility] CenterHDL Pnkpvnbzucn5767-06-16 06:54:00* Test Item Value Reference Range Interpretation Comments HDL Cholesterol (test code = 2085-9) 48 40-60 [facility] CenterCholesterol/HDL Rkdlj9060-70-74 06:54:00 * Test Item Value Reference Range Interpretation Comments Cholesterol/HDL Ratio (test code = 9830-1) 3.4 3.0-3.6 [facility] CenterUrine Opiates Fuwaxa9275-24-22 04:55:00* Test Item Value Reference Range Interpretation Comments Urine Opiates Screen (test code = 16146-5) NEGATIVE NEGATIVE [facility] CenterUrine Barbiturates Ozfije9830-16-39 04:55:00* Test Item Value Reference Range Interpretation Comments Urine Barbiturates Screen (test code = 973272931) NEGATIVE NEGA TIVE [facility] CenterUrine Phencyclidine Kwavaj1685-84-83 04:55:00* Test Item Value Reference Range Interpretation Comments Urine Phencyclidine Screen (test code = 77663-8) NEGATIVE NEGAT JESS [facility] CenterUrine Amphetamines Odtyxj2105-33-37 04:55:00* Test Item Value Reference Range Interpretation Comments Urine Amphetamines Screen (test code = 00068-5) NEGATIVE NEGATI VE [facility] CenterUrine Benzodiazepines Rjkxga6131-82-49 04:55:00* Test Item Value Reference Range Interpretation Comments Urine Benzodiazepines Screen (test code = 11469-5) NEGATIVE NEG ATIVE [facility] CenterUrine Cocaine Azkvwc7330-17-39 04:55:00* Test Item Value Reference Range Interpretation Comments Urine Cocaine Screen (test code = Urine Cocaine Screen) NEGATIVE NEGATIVE [facility] CenterUrine Cannabinoids Jqjmfq3237-84-80 04:55:00* Test Item Value Reference Range Interpretation Comments Urine Cannabinoids Screen (test code = 97260-2) NEGATIVE NEGATI VE THESE RESULTS ARE FOR MEDICAL TREATMENT ONLYTHIS REPORT CONTAINS UNCONFIR MED SCREENING RESULTS*POSITIVE RESULTS WILL BE CONFIRMED BY REFERENCE LAB UPON R EQUEST CUT-OFFDRUG CLASS CONCENTRATION ng/mLAmphetamines 1000Methamphetamines 1000Cocaine 300Opiate 300Phencyc lidine 25Cannabinoid 50Barbiturates 300Benzodiazepine 300Methadone 300[facility]oThyroid Stimulating Hormone (TSH)2017-07-01 03:44:00* Test Item Value Reference Range Interpretation Comments Thyroid Stimulating Hormone (TSH) (test code = 00342-5) 3.278 0.350-4.940 [facility] CenterMagnesium Ntzwl5777-55-79 03:29:00* Test Item Value Reference Range Interpretation Comments Magnesium Level (test code = 99965-8) 2.3 1.3-2.1 H [facility] CenterDifferential Total Cells Counted 2017-06-07 12:11:00* Test Item Value Reference Range Interpretation Comments Differential Total Cells Counted (test code = Differen tial Total Cells Counted) 100 [facility] CenterNeutrophils % (Manual)2017-06-07 12:11:00 * Test Item Value Reference Range Interpretation Comments Neutrophils % (Manual) (test code = 30769-2) 31 40-74 L [facility] CenterLymphocytes % (Manual)2017-06-07 12:11:00 * Test Item Value Reference Range Interpretation Comments Lymphocytes % (Manual) (test code = 737-7) 50 19-48 H [facility] CenterMonocytes % (Manual)2017-06-07 12:11:00* Test Item Value Reference Range Interpretation Comments Monocytes % (Manual) (test code = 744-3) 9 3.4-9.0 [facility] CenterEosinophils % (Manual)2017-06-07 12:11:00 * Test Item Value Reference Range Interpretation Comments Eosinophils % (Manual) (test code = 714-6) 4 0-7 [facility] CenterMetamyelocytes %2017-06-07 12:11:00* Test Item Value Reference Range Interpretation Comments Metamyelocytes % (test code = 740-1) 1 0-0 H [facility] CenterReactive Wpkwezuhvyv9326-61-13 12:11:00* Test Item Value Reference Range Interpretation Comments Reactive Lymphocytes (test code = 61588-1) 5 [facility] CenterPlatelet Enmtsscb0243-08-63 12:11:00* Test Item Value Reference Range Interpretation Comments Platelet Estimate (test code = 50291-2) ADEQUATE [facility] CenterPlatelet Morphology Xpxrtvn9173-22-86 12:11:00* Test Item Value Reference Range Interpretation Comments Platelet Morphology Comment (test code = 80502-0) NORMAL [facility] CenterHypochromasia2017-10-23 12:11:00* Test Item Value Reference Range Interpretation Comments Hypochromasia (test code = 728-6) SLIGHT [facility] CenterAnisocytosis2017-10-23 12:11:00* Test Item Value Reference Range Interpretation Comments Anisocytosis (test code = 702-1) SLIGHT [facility] CenterRed Cell Morphology Ouktfdu3243-75-82 12:11:00* Test Item Value Reference Range Interpretation Comments Red Cell Morphology Comment (test code = 6742-1) ABNORMAL [facility] CenterCT ABDOMEN/PELVIS W [place] [address] Patient Name: SASHA POPE MR #: [id number] : 1965 Age/Sex: 52/F Req #: [id number] Adm Physician: Ordered by: ANN CHADWICK MD Report #: [id number] Location: ER Room/Bed: Procedure: [id number] CT/CT ABDOMEN/PELVIS W Exam Date: 10/02/17 Exam Time: 0148 REPORT STA TUS: Signed EXAM: CT ABDOMEN/PELVIS W DATE: 10/02/2017 12:29 AM INDICATI ON: S ABD PAIN, H/O COLON CANCER, S 20171002 S 0148 S Y COMPARISON: None TECHNIQUE: The abdomen and pelvis were scanned using a multidetector helical scanner. Coronal and sagittal reformations were obtained. Routine protocol performed. The radiologist was notified of this study at 3:00 AM due to techni cierra issues. IV Contrast: 100 ml Isovue 370 FINDINGS: LOWER THORAX: No c onsolidations LIVER/BILIARY: No masses. No ductal dilatation. GALLBL ADDER: Surgically absent SPLEEN: Unremarkable PANCREAS: Unremarkable AD RENALS: No nodules KIDNEYS: There is a 1.4 x 1.3 cm left superior posterior ex ophytic likely hyperenhancing lesion (image 26). No hydronephrosis. GI TR ACT: There is a hyperenhancing 2.8 cm mass of the lateral cecum/proximal ascen ding colon wall (image 51). Diverticulosis. Status post appendectomy. VESSE LS: Unremarkable PERITONEUM/RETROPERITONEUM: No free air or fluid LYMPH NODE S: Rounded 6 mm ileocecal node (image 52, coronal image 53). No other suspicio us adenopathy. REPRODUCTIVE ORGANS/BLADDER: Hysterectomy. Otherwise unremar kable SOFT TISSUES: Unremarkable BONES: No suspicious bone lesions. IMPRESSION: 1. Cecal/proximal ascending colon cancer. Subcentimeter reacti ve or metastatic ileocecal node. No distant metastatic disease. 2. Left sup erior renal lesion (1.4 cm), most compatible with small renal cell carcinoma. Discussed with Physician: ANN CHADWICK MD at 3:15 AM on 10/02/2017. Signed by: Dr Isaac Mcfadden MD on 10/02/2017 3:18 AM Dictated By: Cecile MCFADDEN MD 7 Transcribed By: GARO on 10/02/17317 COPY TO: ANN CHADWICK MD CHEST 2 VIEWS [place] [address] Patient Name: SASHA POPE MR #: [id number] : 1965 Age/Sex: 52/F Req #: [id number] Adm Physician: Ordered by: DYLAN PRUITT MD Report #: [id number] Location: ER Room/Bed: Procedure: [id number] DX/CHEST 2 VIEWS Exam Date: 07/26/17 Exam Time: 1546 REPORT STATUS: Signed PROCEDURE: CHEST 2 VIEWS TECHNIQUE: PA and lateral chest INDICATION: Fall COMPARISON: [facility], DX, CHEST 2 VIEWS, 07/01/2017, 3:00. FINDINGS: Lungs are clear and symmetrically inflated. No pleural effusions. Normal heart size, mediastinal contour, and pulmonary vasculature. Loop recorder over the left hemithorax. Intact skeleton. Cholecystectomy clips. CONCLUSION: No acute abnormality. Dictated by: Billy Thorne M.D. on 07/26/2017 at 16:25 Electronically approved by: Billy Thorne M.D. on 07/26/2017 at 16:25 Dictated By: BILLY THORNE MD 24 Transcribed By: JERALD on 07/26/17 162 COPY TO: DYLAN PRUITT MD CT CERVICAL SPINE WO [place] [address] Patient Name: SASHA POPE MR #: [id number] : 1965 Age/Sex: 52/F Req #: [id number] Adm Physician: Ordered by: DYLAN PRUITT MD Report #: [id number] Location: ER Room/Bed: Procedure: [id number] CT/CT CERVICAL SPINE WO [place] m Date: 07/26/17 Exam Time: 1530 REPORT STATUS: Signed Exams: Head and cervical spine CTs without IV contrast History: Tra shanelle, fall hit right side of for head Comparison studies: Head CT 04/23/2015. Pre vious brain MRI of 04/23/2015 is currently on available on the PACS for comparis on. Technique: Axial images were obtained from the brain and cervical spi ne. Coronal and sagittal images reconstructed from the axial data. Intraveno us contrast: None Findings: Head CT: Scalp: No abnormalities. B ones: No fractures, blastic or lytic lesions. Extra-axial spaces: No masses . No fluid collections. Brain sulci: Appropriate for age. Ventricles: No rmal in size and configuration. No hydrocephalus. Parenchyma: No mass, a cute hemorrhage or acute or chronic cortical vascular insults. No abnormal den sities. Minimal chronic small vessel ischemic changes as described on the prev ious brain MRI of 04/23 2015 are beyond resolution of CT. Sellar/suprasellar region: No abnormalities. Craniocervical junction: The foramen magnum is paten t. No Chiari one malformation. Cervical spine CT: Fractures: None. Soft tissues: No gross abnormalities. Atlantoaxial articulation: Intact. Alignment: Straightened curvature may be positional. No subluxations. Cervic omedullary junction: No abnormalities. The foramen magnum is patent. Verteb jacqueline: No infection or neoplasm. Degenerative changes: Disc height is m aintained. Patent canal and foramina. Small anterior disc ossify complexes at C4-C5 and C5-C6. Mild facet arthrosis at C5-C6 and C6-C7 Incidental finding s: Atherosclerotic calcifications in the carotid siphons. Incidental 3 mm ca lcification in the right thyroid lobe. IMPRESSION: Head CT: 1. No a cute abnormalities. 2. No changes from the previous head CT of 04/23/2015. Cervical spine CT: 1. No cervical spine fracture or subluxation. 2. Cannot adequately evaluate ligament, spinal cord and or vascular abnormalities on the basis of this examination. Signed by: Dr. John Olmos M.D. on 07/26/2017 4:41 PM Dictated By: JOHN OLMOS MD 40 Transcribed By: GARO on 07/26/171640 COPY TO: DYLAN PRUITT MD CT BRAIN WO [place] [address] Patient Name: SASHA POPE MR #: [id number] : 1965 Age/Sex: 52/F Req #: [id number] Adm Physician: Ordered by: DYLAN PRUITT MD Report #: [id number] Location: ER Room/Bed: Procedure: [id number] CT/CT BRAIN WO Exam Date: 09/26/16 Exam Time: 1530 REPORT STATUS: Signed Exams: Head and cervical spine CTs without IV contrast History: Trauma, fall hit right side of for head Comparison studies: Head CT 04/23/2015. Previous bra in MRI of 04/23/2015 is currently on available on the PACS for comparison. Technique: Axial images were obtained from the brain and cervical spine. Cor onal and sagittal images reconstructed from the axial data. Intravenous contra st: None Findings: Head CT: Scalp: No abnormalities. Bones: No fractures, blastic or lytic lesions. Extra-axial spaces: No masses. No flu id collections. Brain sulci: Appropriate for age. Ventricles: Normal in s ize and configuration. No hydrocephalus. Parenchyma: No mass, acute hemo rrhage or acute or chronic cortical vascular insults. No abnormal densities. M inimal chronic small vessel ischemic changes as described on the previous brai n MRI of 04/23 2015 are beyond resolution of CT. Sellar/suprasellar region: N o abnormalities. Craniocervical junction: The foramen magnum is patent. No Ch iari one malformation. Cervical spine CT: Fractures: None. Soft ti ssues: No gross abnormalities. Atlantoaxial articulation: Intact. Alignme nt: Straightened curvature may be positional. No subluxations. Cervicomedullar y junction: No abnormalities. The foramen magnum is patent. Vertebrae: N o infection or neoplasm. Degenerative changes: Disc height is maintained . Patent canal and foramina. Small anterior disc ossify complexes at C4-C5 and C5-C6. Mild facet arthrosis at C5-C6 and C6-C7 Incidental findings: Athe rosclerotic calcifications in the carotid siphons. Incidental 3 mm calcificati on in the right thyroid lobe. IMPRESSION: Head CT: 1. No acute abno rmalities. 2. No changes from the previous head CT of 04/23/2015. Cervical spine CT: 1. No cervical spine fracture or subluxation. 2. Cannot adequat da evaluate ligament, spinal cord and or vascular abnormalities on the basis of this examination. Signed by: Dr. John Olmos M.D. on 07/26/2017 4:41 PM Dictated By: JOHN OLMOS MD 40 Transcribed By: GARO on 07/26/171640 COPY TO : DYLAN PRUITT MD CHEST 2 VIEWS [place] [address] Patient Name: SASHA POPE MR #: [id number] : 1965 Age/Sex: 52/F Req #: [id number] Adm Physician: Ordered by: BULMARO THEODORE MD Report #: [id number] Location: ER Room/Bed: Procedure: [id number] DX/CHEST 2 VIEWS Exam Date: 08/31/16 Exam Time: 0300 REPORT STATUS: Signed CHEST 2 VIEWS, Technique: CHEST 2 VIEWS Comparison: 06/07/2017 Cl inical history: Chest pain DISCUSSION: Stable appearance of the heart, mediastinum, lungs, pleural spaces, and bones. Stable left chest wall electron ic device. IMPRESSION: No acute abnormality. Signed by: Dr Isaac edmondson MD on 07/01/2017 3:47 AM Dictated By: ISAAC MCFADDEN MD Electroni kika Signed By: ISAAC MCFADDEN MD on 07/01/17346 Transcribed By: GARO on 07/01/17346 COPY TO: BULMARO THEODORE MD CHEST SINGLE (PORTABLE) [place] [address] Patient Name: SASHA POPE MR #: [id number] : 1965 Age/Sex: 52/F Req #: [id number] Adm Physician: Ordered by: HELEN GRIFFIN MD Report #: [id number] Location: ER Room/Bed: Procedure: [id number] DX/CHEST SINGLE (PORTABLE) Exa m Date: 06/07/17 Exam Time: 0725 REPORT STATUS: Signed PROCEDURE: A single AP view of the chest. COMPARISON: Portable chest 04/23/2015. INDICATIONS: CHEST PAIN, SOB, COUGH FINDINGS: Lines/tubes: None. Lungs: The lungs are well inflated and clear. There is no evidence of pneumonia or pulmonary edema. Pleura: There is no pleural effusion or pneumothorax. Heart and mediastinum: The heart and t he mediastinum are unremarkable. Bones: No acute bony abnormality. IMPRESSION: No acute radiographic abnormality. Dictated by: John Underwood M.D. on 06/07/2017 at 7:50 Electronically approved by: John narayanan M.D. on 06/07/2017 at 7:50 Dictated By: JOHN UNDERWOOD MD Electr onically Signed By: JOHN UNDERWOOD MD on 06/07/17749 Transcribed By: JERALD on 749 COPY TO: HELEN GRIFFIN MD
--- NOTE | 2020-01-14 00:21 | Emergency Department Note ---
History of Present Illnes History of Present Illness Chief Complaint: flank pain History of Present Illness This is a 55 year old female with history of hyperlipidemia, multiple a bdominal surgeries, Thyroid cancer with resection in 06/2019, colon cancer s/p resection 2018 and partial left nephrectomy due to kidney cancer in 2018, who presents with the onset of left upper back pain, just below the scapula, that radiates around below the left breast. She denies pleuritc pain, cp or SOB. She denies any heavy lifting or straining. The pain is a "sharp, burning pain" that is constant. The pain kept her from sleeping last night. The pain seems to be worse, when she lays down on her back. She states that she used some "pain patches" and took some Tylenol #3, without relief. Pt has a history of kidney stones, but this pain seems higher. She denies any cough, URI symptoms, fever, chills, N/V. She states that she had a "normal BM" this evening, before coming to the ER. Pt has a history of Shingles, that occurred in a similar distribution, but on the right side of her back. She has no rash. Arrival Mode: Car Billet Straightener Required: No Onset (how long ago): day(s) (2) Location: left upper back, lateral to the spine Quality: sharp, burning, constant Radiation: back Severity: severe Onset quality: sudden Duration (how long): day(s) (2) Timing of current episode: constant, other Progression: unchanged Chronicity: new Relieving factors: none Exacerbating factors: none Associated symptoms: denies other symptoms Treatments prior to arrival: other ("pain patches" and tylenol #3) Risk factors: History of multiple malignancies; Past Medical/Family History Physician Review I have reviewed the patient's past medical and family history. Any updates have been documented here. Past Medical History Recent Fever: No Clinical Suspicion of Infectio: No New/Unexplained Change in Ment: No Past Medical History: Cancer, Kidney Stones, Hyperlipedemia Other Medical History: colon cancer, kidney cancer partial left kidney removal thyroid ca Past Surgical History: Cholecysctectomy, Appendectomy, Hysterectomy Other Surgery: colectomy Social History Smoking Cessation: Never Smoker Alcohol Use: None Any Illegal Drug Use: No TB Exposure/Symptoms: No Physically hurt or threatened: No Family History Other family history unknown Other Last Tetanus: UTD Any Pre-Existing Lines (PICC,: No Is patient up to date on immun: Yes Review of Systems Review of Systems Constitutional: no symptoms EENTM: no symptoms Cardiovascular: no symptoms Respiratory: no symptoms Gastrointestinal: no symptoms Genitourinary: no symptoms Musculoskeletal: back pain, muscle pain Neurological: no symptoms Psychological: no symptoms Hematological/Lymphatic: no symptoms Review of other systems All other systems reviewed and negative. Physical Exam Related Data Allergies: Coded Allergies: morphine (Verified Allergy, Mild, HIVES, 12/02/18) Vital signs reviewed: Yes Physical Exam CONSTITUTIONAL Constitutional: well-developed, well-nourished, other (appears uncomfortable) HENT HENT: normocephalic, atraumatic, oropharynx clear/moist, nose normal HENT L/R: left ext ear normal, right ext ear normal EYES Eyes: PERRL, conjunctivae normal NECK Neck: ROM normal PULMONARY Pulmonary: effort normal, breath sounds normal CARDIOVASCULAR Cardiovascular: regular rhythm, heart sounds normal, capillary refill normal, normal rate GASTROINTESTINAL Abdominal: soft, nontender, bowel sounds normal, other (no rebound, guarding, or CVAT;) GENITOURINARY Genitourinary: exam deferred SKIN Skin: warm, dry MUSCULOSKELETAL Musculoskeletal: tenderness (ttp of thoracic lateral paraspincal muscles from @ T6 - T8, with tenderness raditing around to just below the left breast; no rash; no crepitus;) NEUROLOGICAL Neurological: alert, oriented x 3, no gross motor or sensory deficits PSYCHOLOGICAL Psychological: mood/affect normal, judgement normal Results Laboratory Lab results reviewed: Yes Laboratory comments CBC - normal CMP - normal Cardiac Enzymes - normal D-dimer - not elevated UA - negative Imaging Imaging results reviewed: Yes Impressions [place] [address] Patient Name: SASHA POPE MR #: [id number] : 1965 Age/Sex: 55/F Req #: [id number] Adm Physician: Ordered by: CLAYTON ORR MD Report #: [id number] Location: [facility] Room/Bed: Procedure: [id number] HOPD/CT CHEST W/O CONTRAST-HOPD Exam Date: Exam Time: REPORT STATUS: Signed EXAM: CT Chest WITHOUT contrast INDICATION: Mid back pain, left-sided fluid. COMPARISON: Abdominal CT 12/04/2019 TECHNIQUE: Chest was scanned utilizing a multidetector helical scanner from the lung apex through the level of the adrenal glands without administration of IV contrast. Absence of intravenous contrast decreases sensitivity for detection of lymphadenopathy and vascular pathology. Coronal and sagittal reformations were obtained. Routine protocol was performed. IV CONTRAST: None COMPLICATIONS: None RADIATION DOSE: Total DLP: 635 mGy*cm Estimated effective dose: (DLP x 0.014 x size factor) mSv CTDIvol has been reviewed. It is below the limits set by the Radiation Protocol Committee (RPC). Dose modulation, iterative reconstruction, and/or weight based adjustment of the mA/kV was utilized to reduce the radiation dose to as low as reasonably achievable. FINDINGS: LINES/ TUBES: None. LUNGS AND AIRWAYS: The lungs are unremarkable. Airways are normal. Mild central bronchial wall thickening. Basilar atelectasis. PLEURA: The pleural spaces are clear. HEART AND MEDIASTINUM: The thyroid gland is normal. No mediastinal, hilar or axillary lymphadenopathy. The heart is borderline enlarged. There is no pericardial effusion. Minimal aortic calcifications. UPPER ABDOMEN: Partially visualized surgical changes in the left upper retroperitoneum. Cholecystectomy clips. BONES: Mild degenerative changes. SOFT TISSUES: Left chest wall subcutaneous cardiac loop recorder. IMPRESSION: Subtle findings of bronchitis. Borderline cardiomegaly. Signed by: Gurwinder Doty DO on 01/14/2020 2:36 AM Dictated By: GURWINDER DOTY DO 5 Transcribed By: GARO on 01/14/20235 COPY TO: CLAYTON ORR MD~ Diagnostics Tests Diagnostic test(s) reviewed: Yes Procedures 12 Lead ECG Interpretation Billet Straightener: Interpreted by ED physician Date: January 14, 2020 Time: 00:50 Prior INSTRUMENT TECH tracings: reviewed Rhythm: sinus rhythm Rate: normal BPM: 68 QRS axis: normal ST segments normal: Yes T waves normal: No (T-wave inversion V2 V4) Clinical Impression: abnormal ECG Critical Care Time Subsequent provider I assumed direction of critical care for this patient from another provider of my specialty. Assessment & Plan Reassessment Reassessment time: 01:24 Reassessment Pain down to a 4/10, following dose of Toradol. Updated patient that lab and urine look good. We are waiting on results of CT chest. Explained to patient that if the CT chest does not reveal an etiology of her pain, then it may be musculoskeletal in nature, or this may be the prelude to a Shingles outbreak. Assessment & Plan Final Impression: (1) UNSP SYMPTOMS AND SIGNS INVOLVING THE MUSCULOSKELETAL SYSTEM (2) ACUTE BRONCHITIS, UNSPECIFIED (3) HYPERLIPIDEMIA, UNSPECIFIED (4) OTHER CHRONIC PAIN Assessment & Plan - Reviewed results of labs and CT chest with patient, at the bedside. The CT showed "probable mild bronchitis," though patient is not having any URI symptoms and no pleuritic pain. - Will treat with Zithromax - There was no evidence of a pleural effusion, pneumonia or bony mets/abnormality. - Discussed with patient, that since pain seems to be worse with movement or laying on her back, will treat for musculoskeletal pain. - Also, discussed that this pain could be a prelude to an outbreak of Shingles. Time will tell. - Pt encouraged to f/u with her PCP, regarding this ER visit, and she may return to the ED, if symptoms worsen. Pt voiced understanding of the plan, and ambulated out of the ED, in NAD. Depart Disposition: HOME, SELF-senior living Meds Active Scripts Azithromycin (Z-FELIPA) 250 Mg Tablet, 250 MG PO UD for infection for 5 Days, #1 UDPKT 0 Refills Z-Pack Prov:CLAYTON ORR MD 01/14/20 Naproxen (NAPROXEN) 250 Mg Tablet, 500 MG PO BID for muscle pain and inflammation, #20 TAB 0 Refills Prov:CLAYTON ORR MD 01/14/20 Methocarbamol (ROBAXIN-750) 750 Mg Tablet, 1-2 TAB PO Q8H for muscle pain, #20 TAB 0 Refills Do NOT take and drive or operate machinery Prov:CLAYTON ORR MD 01/14/20 Omeprazole (OMEPRAZOLE) 40 Mg Capsule.dr, 1 TAB PO DAILY for 14 Days Prov:CARLEEN ALBERT MD 10/20/18 Ketorolac Tromethamine (TORADOL) 10 Mg Tablet, 10 MG PO Q8H for pain for 7 Days, #21 Prov:CARLEEN ALBERT MD 10/20/18 Reported Medications D-Methorphan Hb/P-Epd Hcl/Bpm (BROMFED DM COUGH SYRUP) 118 Ml Syrup, 10 ML PO Q6H, #200 ML 05/22/19 Albuterol Sulf* (PROAIR HFA INHALER*) 8.5 Gm Inh, 2 INH INH Q4HR PRN for SHORTNESS OF BREATH, #1 05/22/19 Methylprednisolone (MEDROL) 4 Mg Tablet, 4 MG PO UD for 6 Days 05/22/19 Acetaminophen With Codeine (TYLENOL WITH CODEINE #3 TABLET) 1 Each Tablet, 300 MG PO TID PRN for PRN, TAB 06/02/18 Gabapentin (GABAPENTIN) 300 Mg Capsule, 300 MG PO TID, #60 CAP 06/02/18 CLAYTON ORR MD January 14, 2020 00:21
[2020-01-14] MEDS ORDERED: KETOROLAC TROMETHAMINE 30 MG/ML VIAL IV STA (00:25)
[2020-01-14] MEDS ORDERED: KETOROLAC TROMETHAMINE 30 MG/ML VIAL ONE (00:32)
[2020-01-14] MEDS ORDERED: CYCLOBENZAPRINE HCL 10 MG TAB ONE (02:30)
[2020-01-14] MEDS ORDERED: HYDROCODONE/APAP 5MG-325MG TAB PO ONE (02:30)
[2020-01-14] MEDS ORDERED: CYCLOBENZAPRINE HCL 10 MG TAB PO ONE (02:30)
[2020-01-14] MEDS ORDERED: HYDROCODONE/APAP 5MG-325MG TAB ONE (02:30)
--- NOTE | 2020-01-14 02:40 | Diagnostic Imaging Report ---
EXAM: CT Chest WITHOUT contrast INDICATION: Mid back pain, left-sided fluid. COMPARISON: Abdominal CT 12/04/2019 TECHNIQUE: Chest was scanned utilizing a multidetector helical scanner from the lung apex through the level of the adrenal glands without administration of IV contrast. Absence of intravenous contrast decreases sensitivity for detection of lymphadenopathy and vascular pathology. Coronal and sagittal reformations were obtained. Routine protocol was performed. IV CONTRAST: None COMPLICATIONS: None RADIATION DOSE: Total DLP: 635 mGy*cm Estimated effective dose: (DLP x 0.014 x size factor) mSv CTDIvol has been reviewed. It is below the limits set by the Radiation Protocol Committee (RPC). Dose modulation, iterative reconstruction, and/or weight based adjustment of the mA/kV was utilized to reduce the radiation dose to as low as reasonably achievable. FINDINGS: LINES/ TUBES: None. LUNGS AND AIRWAYS: The lungs are unremarkable. Airways are normal. Mild central bronchial wall thickening. Basilar atelectasis. PLEURA: The pleural spaces are clear. HEART AND MEDIASTINUM: The thyroid gland is normal. No mediastinal, hilar or axillary lymphadenopathy. The heart is borderline enlarged. There is no pericardial effusion. Minimal aortic calcifications. UPPER ABDOMEN: Partially visualized surgical changes in the left upper retroperitoneum. Cholecystectomy clips. BONES: Mild degenerative changes. SOFT TISSUES: Left chest wall subcutaneous cardiac loop recorder. IMPRESSION: Subtle findings of bronchitis. Borderline cardiomegaly. Signed by: Gurwinder Doty DO on 01/14/2020 2:36 AM
[2020-01-14] MEDS ORDERED: ROBAXIN-750750 MG PO (02:55)
[2020-01-14] MEDS ORDERED: NAPROXEN250 MG PO (02:57)
[2020-01-14] MEDS ORDERED: AZITHROMYCIN250 MG PO (02:59)
== END 2020-01-14 03:15 | disposition home or self-care (01) ==
LOC: FSED 23:11
DX: M79.18 Myalgia, other site (principal); R29.91 Unspecified symptoms and signs involving the musculoskeletal system; J20.9 Acute bronchitis, unspecified; E78.5 Hyperlipidemia, unspecified; G89.29 Other chronic pain
CPT/HCPCS: 71250; 80053; 81003; 82553; 84484; 85025; 85379; 99284; J1885; 93005

== ENCOUNTER 2020-01-16 18:40 | Emergency (ER) | payer SELFPAY ==
[~2020-01-16] VITALS: Ht 147.3 cm; Wt 65.8 kg
[~2020-01-16 18:40] MED LIST changes: +AZITHROMYCIN250 MG PO; +NAPROXEN250 MG PO; +ROBAXIN-750750 MG PO
--- OUTSIDE RECORDS SUMMARY | 2020-01-16 18:42 | XMS REPORT | Clinical Summary ---
Author Author [facility] Address Unknown Phone Unavailable Care Team Providers Care Information Systems Specialist Name Role Phone Vera, Grant Jarrod PCP [...] ) (Primary Dx) 07/17/2019 Orders Only Lab Lsea Luna MD 07/11/2019 Anesthesia Event Fareed Vang MD THYROIDECTOMY,TOTAL 07/11/2019 Surgery Fareed Vang MD 07/11/2019 [facility] Internal Me dicine - Encounter 07/12/2019 Kelvin Wells MD 07/05/2019 Hospital Pre-Admission Testi ng Encounter after 01/15/2019 Social History Date Tobacco Use Types Packs/Day [...] Taken Vital Sign Reading 07/12/2019 8:48 AM TELEVISION NEWS ANCHOR Blood Pressure 140/67 07/12/2019 8:48 AM TELEVISION NEWS ANCHOR Pulse 52 07/12/2019 8:48 AM TELEVISION NEWS ANCHOR Temperature 36.1 C (97 F) 07/12/2019 8:48 AM TELEVISION NEWS ANCHOR Respiratory Rate 18 07/12/2019 8:48 AM TELEVISION NEWS ANCHOR Oxygen Saturation 98% - Inhaled Oxygen - Concentration 07/11/2019 6:20 AM TELEVISION NEWS ANCHOR Weight 63.2 kg (139 lb 4.8 oz) 07/11/2019 6:20 AM TELEVISION NEWS ANCHOR Height 147.3 cm (4' 10") 07/11/2019 6:20 AM TELEVISION NEWS ANCHOR Body Mass Index 29.11 Plan of Treatment Not on file Procedures Comments Procedure Name Priority Date/Time Associated Diag nosis CALCIUM Routine 07/17/2019 Malignant neopl asm of 11:28 AM TELEVISION NEWS ANCHOR thyroid gland (HCC) CALCIUM, IONIZED Routine 07/12/2019 8:40 AM TELEVISION NEWS ANCHOR CALCIUM, IONIZED Routine 07/11/2019 9:47 PM TELEVISION NEWS ANCHOR PTH, INTACT ALISIA 07/11/2019 11:12 AM TELEVISION NEWS ANCHOR CALCIUM, IONIZED ALISIA 07/11/2019 11:12 AM TELEVISION NEWS ANCHOR TISSUE EXAM AP Routine 07/11/2019 9:47 AM TELEVISION NEWS ANCHOR PROCEDURE W/ NIMS 07/11/2019 Malignant neoplasm of 7:30 AM TELEVISION NEWS ANCHOR thyroid gland (HCC) Case Notes 2 HRS PER FAX THYROIDECTOMY,TOTAL 07/11/2019 Malignant neoplas m of 7:30 AM TELEVISION NEWS ANCHOR thyroid gland (HCC) Case Notes 2 HRS PER FAX PLATELET COUNT Routine 07/05/2019 4:34 PM TELEVISION NEWS ANCHOR PROTHROMBIN TIME/INR Routine 07/05/2019 4:34 PM TELEVISION NEWS ANCHOR HEMOGLOBIN Routine 07/05/2019 4:34 PM TELEVISION NEWS ANCHOR after 01/15/2019 Results * Calcium (07/17/2019 11:28 AM TELEVISION NEWS ANCHOR) Calcium 9.9 8.4 - 10.2 mg/dL [facility] Specimen Blood Performing Organization Address [facility] Ph one Number [address] [facility] * Calcium, Ionized (07/12/2019 8:40 AM TELEVISION NEWS ANCHOR) Only the most recent of 3 results within the time period is included. Calcium, Ion 1.19 1.12 - 1.27 mmol/L [facility] pH, Blood 7.37 [facility] Specimen Blood Performing Organization Address [facility] Ph one Number [address] [facility] * PTH, intact (07/11/2019 11:12 AM TELEVISION NEWS ANCHOR) PTH 64.0 8.5 - 72.5 pg/mL [facility] Specimen Blood Performing Organization Address [facility] Ph one Number [address] [facility] * Tissue Exam (07/11/2019 9:47 AM TELEVISION NEWS ANCHOR) Case Report Surgical Pathology [facility] TH Report [facility] Case: [id number] Authorizing Provider:Fareed Vang MDCollected: 07/11/2019 0947 Ordering Location: [facility] Received: 07/11/2019 1249 SERVICES Pathologist: James Davalos MD Specimens: A) - Thyroid, Right B) - Thyroid, Left DIAGNOSIS PART A RIGHT LOBE OF THYROID, [facility] HEMITHYROIDECTOMY (6.0 GRAMS): [facility] PAPILLARY THYROID CARCINOMA, CLASSIC MORPHOLOGY, 1.0 CM. THE NEOPLASM IS PRESENT IN THE RIGHT LOWER LOBE. LYMPHOVASCULAR INVASION IS NOT IDENTIFIED. EXTRATHYROIDAL EXTENSION IS NOT IDENTIFIED. SURGICAL MARGINS ARE NEGATIVE FOR TUMOR. AJCC CLASSIFICATION (8TH EDITION) [id number]. SEE SYNOPTIC REPORT. PART B LEFT LOBE OF THYROID, HEMITHYROIDECTOMY (6.0 GRAMS): THYROID WITHOUT SIGNIFICANT HISTOPATHOLOGIC ALTERATION. NEGATIVE FOR MALIGNANCY. Signing Pathologist Direct Phone Line: [phone] SYNOPTIC REPORT THYROID GLAND(Thyroid - [facility] All Specimens) [facility] 8th Edition - Protocol posted: 10/12/2018 : [...] (pT):pT1a Regional Lymph Nodes (pN):pNX CPT Code(s) 69812D1 [facility] CLINICAL HISTORY Malignant neoplasm of thyroid [facility] gland [facility] SPECIMEN SOURCE A. RIGHT LOBE OF THYROID; B. [facility] LEFT LOBE OF THYROID. [facility] GROSS DESCRIPTION The case has two parts. [facility] A. Received in formalin [facility] labeled with the patient's name, accession number [...] cut surface is red and finely granular. Museum Attendant sections to include the entire nodule are submitted as follows; Section code: [id number]-nlyxsv nodule, lower pole A3-uninvolved thyroid, upper pole [...] surface. No discrete lesions are grossly appreciated. Museum Attendant sections to include the entire nodule are submitted as follows; Section code: B1-upper pole B2-B3-mid pole B4-B5-lower pole PA/ew MICROSCOPIC DESCRIPTION Performed. [facility] Gross assessment was [facility] performed at [place], Department of [facility] TER Pathology, [address] [place] [address], Technical component was [facility] performed at [place], Department of [facility] TER Pathology, [address] [place] [address], Professional component [facility] was performed at [place], Department of [facility] MEDICAL [facility] TER Pathology, [address] [place] [address], Specimen Tissue - Thyroid, Right Tissue - Thyroid, Left Performing Organization Address City/State/Zipcode Ph one Number [place] [phone] [facility] * Prothrombin time/INR (07/05/2019 4:34 PM TELEVISION NEWS ANCHOR) Protime 13.1 11.9 - 14.2 seconds [facility] INR 1.0 <=5.9 [facility] Specimen Blood Narrative Performed At RECOMMENDED COUMADIN/WARFARIN INR THERAPY RANGES [facility] STANDARD DOSE: 2.0 - 3.0 Includes: PROPHYLAXIS fo r venous thrombosis, [facility] systemic embolization; TREATMENT for ve nous thrombosis and/or pulmonary embolus. HIGH RISK: Target INR is 2.5-3.5 for pa tients with mechanical heart valves. Performing Organization Address City/[facility] one Number [address] [facility] * Platelet count (07/05/2019 4:34 PM TELEVISION NEWS ANCHOR) Platelets 204 150 - 450 K/CU MM [facility] Specimen Blood Performing Organization Address [facility] one Number [address] [facility] * Hemoglobin (07/05/2019 4:34 PM TELEVISION NEWS ANCHOR) Hemoglobin 13.2 11.2 - 15.7 GM/DL [facility] Specimen Blood Performing Organization Address [facility] one Number [address] [facility] after 01/15/2019 Insurance Payer Benefit Subscriber ID Type Phone Address Plan / Group [employer] - MGD CARE [employer] xxxxxxxxxxx HMO/POS HMO/POS/OP EN ACCESS [id number] Advance Directives For more information, please contact: [address] [phone] Date Inactivated Comments Code Status Date Activated 07/12/2019 12:45 PM Full Code 07/11/2019 1:38 PM This code status was determined by: Patient
--- OUTSIDE RECORDS SUMMARY | 2020-01-16 18:44 | XMS REPORT | Continuity of Care Document ---
Author Author [facility] t Organization [facility] Address [address] [place] [place] [address] Phone Unavailable Care Team Providers Care Rn Urgent Care Name Role Phone MARY LUNDBERG, MD Kadeem TANNER PCP Neena ORRA Attphys Unavailable EWELINA, Neena CHAMBERLAIN Attphys Unavailable EMILY VANG Attphys Unavailable HUDE, Carmine CALDERÓN Attphys Unavailable HERNANDEZKadeem FIGUEREDO Attphys Unavailable DYLAN ARTIS Attphys Unavailable Dena CHADWICK Attphys Unavailable NATHAN, S MIKALA Attphys Unavailable ZEBALLOSCarmine Attphys Unavailable MANEEVESE, V DARREN Attphys Unavailable HUSBYCarmen Attphys Unavailable GRIFFIN, Elena CERVANTES Attphys Unavailable EMILY VANG Admphys Unavailable HERNANDEZ, Kadeem TANNER Admphys Unavailable Payers Payer Name Policy Type Policy Number Effective Date Expiration Date Martell clara Cigna Hmo NA 2019 00:00:00 [facility] Self Pay NA [facility] Cigna Ppo [id number] 2018 00:00:00 [facility] Problems Condition Name Condition Details Condition Category Status Onset Date Resolution Date Last Treatment Date Treating Clinician Comments Source TIA (transient ischemic attack) TIA (transient ischemic attack) Pro blem Active 2015-04-23 00:00:00 [facility] Chest pain Chest pain Problem Active C [facility] Allergies, Adverse Reactions, Alerts Allergy Name Allergy Type Status Severity Reaction(s) Onset Date Inacti ve Date Treating Clinician Comments Source morphine DA Active [place] 2019-02-08 00:00:00 [facility] Morphine Allergy to substance Active Mild HIVES 2018-12-02 00:00:00 [facility] morphine DA Active [place] 2016-07-07 00:00:00 [facility] Social History Social Habit Start Date Stop Date Quantity Comments Source Sex Assigned At 1965 00:00:00 1965 00:00:00 Female [facility] Medications Ordered Medication Name Filled Medication Name Start Date Stop Da te Current Medication? Ordering Clinician Indication Dosage Frequency Signature (SIG) Comments Components Source Azithromycin (Z-Foster) 250 Mg TABLET Azithromycin (Z-Foster) 250 Mg TABLET 2020-01-14 02:59:00 Yes 250 Use As Directed for Infection [facility] Naproxen Naproxen 2020-01-14 02:57:00 Yes 500 Twice A Day for Muscle Pain And Inflammation [facility] Methocarbamol (Robaxin-750) 750 Mg TABLET Methocarbamo l (Robaxin-750) 750 Mg TABLET 2020-01-14 02:55:00 Yes Every 8 Hours for Muscle Pain [facility] Omeprazole Omeprazole 2018-10-20 00:40:00 Yes 1 Quynh ly [facility] Ketorolac Tromethamine (Toradol) 10 Mg TABLET Ketorola c Tromethamine (Toradol) 10 Mg TABLET 2018-10-20 00:15:00 Yes 10 Every 8 Maurilio rs for Pain [facility] Acetaminophen With Codeine (Tylenol With Codeine #3 Ta blet) 1 Each TABLET Acetaminophen With Codeine (Tylenol With Codeine #3 Tablet) 1 Each TABLET Yes 300 Three Times A Day as needed for Prn [facility] Albuterol Sulfate (Proair Hfa Inhaler*) 8.5 Gm INH Alb uterol Sulfate (Proair Hfa Inhaler*) 8.5 Gm INH Yes 2 Vijaya ry 4 Hours as needed for Shortness Of Breath [facility] D-Methorphan Hb/P-Epd Hcl/Bpm (Bromfed Dm Cough Syrup) 118 Ml SYRUP D-Methorphan Hb/P-Epd Hcl/Bpm (Bromfed Dm Cough Syrup) 118 Ml SYRUP Yes 10 Every 6 Hours [facility] Gabapentin Gabapentin Yes 300 Three Times A Day [facility] Methylprednisolone (Medrol) 4 Mg TABLET Methylprednisolone ( Medrol) 4 Mg TABLET Yes 4 Use As Directed C [facility] Fenofibrate Nanocrystallized (Fenofibrate) 145 Mg TABL ET Fenofibrate Nanocrystallized (Fenofibrate) 145 Mg TABLET 2019-05-21 00:00:00 No 160 Daily [facility] Sucralfate Sucralfate 2019-05-21 00:00:00 No 1 Thr ee Times A Day [facility] Pantoprazole Sodium (Protonix) 40 Mg TABLET. Pantopr azole Sodium (Protonix) 40 Mg TABLET. 2018-06-27 00:00:00 No 40 Daily [facility] Aspirin (Aspir 81) 81 Mg TABLET. Aspirin (Aspir 81) 81 Mg TABL ET. 2018-06-02 00:00:00 No 81 [facility] Atorvastatin Calcium (Lipitor) 20 Mg TABLET Atorvastat in Calcium (Lipitor) 20 Mg TABLET 2018-06-02 00:00:00 No 20 Daily [facility] Cetirizine Hcl Cetirizine Hcl 2018-06-02 00:00:00 No 10 Daily [facility] Ferrous Sulfate Ferrous Sulfate 2018-06-02 00:00:00 No 325 Daily [facility] Ibuprofen Ibuprofen 2018-06-02 00:00:00 No 400 As Ne eded [facility] Brompheniramin/Pe/Dextromethor (Cold & Cough Elixir) 1 18 Ml SOLUTION Brompheniramin/Pe/Dextromethor (Cold & Cough Elixir) 118 Ml SOLUTION 2017-07-02 00:00:00 No [facility] Acyclovir Acyclovir 2017-06-07 00:00:00 No 400 Daily [facility] Gabapentin Gabapentin 2017-06-07 00:00:00 No Twi ce A Day [facility] Tramadol Hcl (Ultram) 50 Mg TABLET Tramadol Hcl (Ultram) 50 Mg T ABLET 2017-06-07 00:00:00 No 50 Every 6 Hours as nee ded for Pain [facility] Vital Signs Vital Name Observation Time Observation Value Comments Source Weight 2020 23:40:00 145 [lb_av] [facility] BMI (Body Mass Index) 2020 23:40:00 30.3 kg/m2 [facility] Body Temperature 2019-05-22 12:00:00 97.0 [degF] [facility] Procedures Procedure Date / Time Performed Performing Clinician [facility] e Computed tomography of abdomen and pelvis with contrast 2019 00:00:00 BULMARO THEODORE [facility] Plan of Care Planned Activity Planned Date Details Comments Source Instructions Bronchitis (Acute) - Adult C [facility] Encounters Start Date/Time End Date/Time Encounter Type Admission Type Attendi [facility] Facility Care Department Encounter ID Source 2020 23:11:00 2020 23:11:00 Registered Emergency Room 1 CLAYTON ORR [facility] [id number] [facility] 2019-12-04 07:18:00 2019-12-04 10:11:00 Departed Emergency Room 1 BULMARO THEODORE [facility] [id number] [facility] 2019-06-19 09:23:00 2019-06-19 09:23:00 Registered Clinic 3 STEPHANE ALICEA [facility] [id number] [facility] 2019-05-20 19:49:00 2019-05-22 14:44:00 Discharged Inpatient (obs) 1 CIRO HERNANDEZ [facility] [id number] [facility] 2019-04-23 11:42:00 2019-04-23 13:56:00 Departed Emergency Room 1 DYLAN ARTIS [facility] [id number] [facility] 2019-02-22 04:24:00 2019-02-22 06:08:00 Departed Emergency Room 1 ANN CHADWICK [facility] [id number] [facility] 2018-12-02 09:49:00 2018-12-02 14:30:00 Departed Emergency Room 1 MIKALA EVANS [facility] [id number] [facility] 2018-10-20 06:36:00 2018-10-23 17:21:00 Discharged Inpatient (obs) 1 MARY [facility] [id number] [facility] 2018-10-20 00:06:00 2018-10-20 01:53:00 Departed Emergency Room 1 CARLEEN ALBERT [facility] [id number] [facility] 2018-07-04 11:47:00 2018-07-04 11:47:00 Registered Clinic 3 LIZZIE MARILIN CIRO [facility] [id number] [facility] 2018-06-29 10:24:00 2018-06-29 10:24:00 Registered Surgical Day Care [facility] [id number] [facility] 2018-06-02 17:38:00 2018-06-05 13:27:00 Discharged Inpatient (obs) 9 MARY CIRO [facility] [id number] [facility] 2018-05-03 16:59:00 2018-05-03 21:58:00 Departed Emergency Room 1 DARREN PERSAUD [facility] [id number] [facility] 2018-01-14 14:52:00 2018-01-14 18:17:00 Departed Emergency Room [facility] [id number] [facility] 2017-10-02 00:22:00 2017-10-02 03:38:00 Departed Emergency Room ER ANN CHADWICK [facility] [id number] [facility] 2017-07-26 19:54:00 2017-07-28 10:35:00 Discharged Inpatient (obs) ER DYLAN PRUITT [facility] [id number] [facility] 2017-07-01 05:24:00 2017-07-02 11:20:00 Discharged Inpatient (obs) ER BULMARO THEODORE [facility] [id number] [facility] 2017-06-07 06:42:00 2017-06-07 09:18:00 Departed Emergency Room ER HELEN GRIFFIN [facility] [id number] [facility] Results Test Description Test Time Test Comments Results Result Comments Source CT CHEST W/O CONTRAST-HOPD 2020-01-14 01:30:00 [place] [address] Patient Name: SASHA POPE MR #: [id number] : 1965 Age/Sex: 55/F Req #: [id number] Adm Physician: Ordered by: CLAYTON ORR MD Report #: [id number] Location: FS Room/Bed: Procedure: [id number] HOPD/CT CHEST W/O CONTRAST-HOPD Exam Date: Exam Time: REPORT STATUS: Signed EXAM: CT Chest WITHOUT contrast INDICATION: Mid back pain, left-sided fluid. COMPARISON: Abdominal CT 12/04/2019 TECHNIQUE: Chest was scanned utilizing a multidetector helical scanner from the lung apex through the level of the adrenal glands without administration of IV contrast. Absence of intravenous contrast decreases sensitivity for detection of lymphadenopathy and vascular pathology. Coronal and sagittal reformations were obtained. Routine protocol was performed. IV CONTRAST: None COMPLICATIONS: None RADIATION DOSE: Total DLP: 635 mGy*cm Estimated effective dose: (DLP x 0.014 x size factor) mSv CTDIvol has been reviewed. It is below the limits set by the Radiation Protocol Committee (RPC). Dose modulation, iterative reconstruction, and/or weight based adjustment of the mA/kV was utilized to reduce the radiation dose to as low as reasonably achievable. FINDINGS: LINES/ TUBES: None. LUNGS AND AIRWAYS: The lungs are unremarkable. Airways are normal. Mild central bronchial wall thickening. Basilar atelectasis. PLEURA: The pleural spaces are clear. HEART AND MEDIASTINUM: The thyroid gland is normal. No mediastinal, hilar or axillary lymphadenopathy. The heart is borderline enlarged. There is no pericardial effusion. Minimal aortic calcifications. UPPER ABDOMEN: Partially visualized surgical changes in the left upper retroperitoneum. Cholecystectomy clips. BONES: Mild degenerative changes. SOFT TISSUES: Left chest wall subcutaneous cardiac loop recorder. IMPRESSION: Subtle findings of bronchitis. Borderline cardiomegaly. Signed by: Gurwinder Jeff DO on 01/14/2020 2:36 AM Dictated By: GURWINDER JEFF DO 5 Transcribed By: GARO on 01/14/20235 COPY TO: CLAYTON ORR MD CT ABDOMEN/PELVIS W 2019-12-04 09:41:00 [place] [address] Patient Name: SASHA POPE MR #: [id number] : 1965 Age/Sex: 54/F Req #: [id number] Adm Physician: Ordered by: BULMARO THEODORE MD Report #: [id number] Location: ER Room/Bed: Procedure: [id number] CT/CT ABDOMEN/PELVIS W Exam Date: 12/04/19 Exam Time: 0906 REPORT STATUS: Signed CT ABDOMEN WITH CONTRAST, [...] WBC (test code = 5821-4) 0-5 0-5 [facility] [id number] 08:32:00* Test Item Value Reference Range Interpretation Comments Urine RBC (test code = 63479-4) NONE 0-5 [facility] Ktswkzjm3271-76-03 08:32:00* Test Item Value Reference Range Interpretation Comments Urine Bacteria (test code = 26677-0) FEW NONE [facility] Center[facility] Epithelial Zuodr6519-45-02 08:32:00 * Test Item Value Reference Range Interpretation Comments Urine Epithelial Cells (test code = 21602-5) FEW NONE [facility] Ftvjq8865-72-75 08:18:00* Test Item Value Reference Range Interpretation Comments Sodium Level (test code = 2951-2) 140 136-145 [facility] CenterPotassium Tjlly5123-80-34 08:18:00* Test Item Value Reference Range Interpretation Comments Potassium Level (test code = 2823-3) 4.0 3.5-5.1 [facility] CenterChloride Agves5575-40-73 08:18:00* Test Item Value Reference Range Interpretation Comments Chloride Level (test code = 2075-0) 106 98-107 [facility] CenterCarbon Dioxide Isgxd4263-51-70 08:18:00* Test Item Value Reference Range Interpretation Comments Carbon Dioxide Level (test code = 2028-9) 27 22-29 [facility] CenterAnion Por2355-45-86 08:18:00* Test Item Value Reference Range Interpretation Comments Anion Gap (test code = 37001-8) 11.0 8-16 [facility] CenterBlood Urea Wcssjtyd2817-49-84 08:18:00* Test Item Value Reference Range Interpretation Comments Blood Urea Nitrogen (test code = 3094-0) 19 7-26 [facility] CenterCreatinine2020-04-20 08:18:00* Test Item Value Reference Range Interpretation Comments Creatinine (test code = 2160-0) 0.71 0.57-1.11 [facility] CenterBUN/Creatinine Jvygg5548-85-94 08:18:00* Test Item Value Reference Range Interpretation Comments BUN/Creatinine Ratio (test code = 3097-3) 27 6-25 H [facility] CenterEstimat Glomerular Filtration Rate 2019-12-04 08:18:00* Test Item Value Reference Range Interpretation Comments Estimat Glomerular Filtration Rate (test code = 886631546) > 60 >60 Ranges were taken from the National Kidney Disease Education Program and the [facility] access hospital Kidney Foundation literature.Reference ranges:60 or greater: Klgzyw83-45 ( for 3 consecutive months): Chronic kidney disease 15 or less: Kidney failureEn[facility] Medical CenterGlucose Mnqqb8498-79-67 08:18:00* Test Item Value Reference Range Interpretation Comments Glucose Level (test code = AET0660) 92 74-118 [facility] CenterCalcium Hdhmo1849-96-00 08:18:00* Test Item Value Reference Range Interpretation Comments Calcium Level (test code = 40584-0) 9.3 8.4-10.2 [facility] CenterTotal Jqgxugled9507-59-72 08:18:00* Test Item Value Reference Range Interpretation Comments Total Bilirubin (test code = 1975-2) 0.3 0.2-1.2 [facility] CenterAspartate Amino Transf (AST/SGOT) 2019-12-04 08:18:00* Test Item Value Reference Range Interpretation Comments Aspartate Amino Transf (AST/SGOT) (test code = Aspartate Amino Transf (AST/SGOT)) 52 5-34 H [facility] CenterAlanine Aminotransferase (ALT/SGPT) 2019-12-04 08:18:00* Test Item Value Reference Range Interpretation Comments Alanine Aminotransferase (ALT/SGPT) (test code = 1742-6) 80 0-55 H [facility] CenterTotal Naakpsh4527-48-19 08:18:00* Test Item Value Reference Range Interpretation Comments Total Protein (test code = 2885-2) 7.3 6.5-8.1 [facility] CenterAlbumin2020-04-20 08:18:00* Test Item Value Reference Range Interpretation Comments Albumin (test code = 1751-7) 3.3 3.5-5.0 L [facility] CenterGlobulin2020-04-20 08:18:00* Test Item Value Reference Range Interpretation Comments Globulin (test code = 38838-5) 4.0 2.3-3.5 H [facility] CenterAlbumin/Globulin Gzbhq2200-66-08 08:18:00 * Test Item Value Reference Range Interpretation Comments Albumin/Globulin Ratio (test code = 1759-0) 0.8 0.8-2.0 [facility] CenterAlkaline Ktswnmympar6348-08-35 08:18:00* Test Item Value Reference Range Interpretation Comments Alkaline Phosphatase (test code = 6768-6) 83 40-150 [facility] CenterUrine Awalk6144-40-60 08:16:00* Test Item Value Reference Range Interpretation Comments Urine Color (test code = 5778-6) YELLOW YELLOW [facility] CenterUrine Eilycii1816-45-44 08:16:00* Test Item Value Reference Range Interpretation Comments Urine Clarity (test code = 23560-4) CLEAR CLEAR [facility] CenterUrine Specific Ldmclgy3328-82-76 08:16:00 * Test Item Value Reference Range Interpretation Comments Urine Specific [place] (test code = 5811-5) 1.020 1.010-1.02 5 [facility] CenterU[facility] [id number] 08:16:00* Test Item Value Reference Range Interpretation Comments Urine pH (test code = 74479-6) 6 5-7 [facility] Center[facility] Leukocyte Amutpxum2852-72-53 08:16:00* Test Item Value Reference Range Interpretation Comments Urine Leukocyte Esterase (test code = 5799-2) NEGATIVE NEGATIVE [facility] CenterU[facility] Fkigtzs7303-85-83 08:16:00* Test Item Value Reference Range Interpretation Comments Urine Nitrite (test code = 82904-2) NEGATIVE NEGATIVE [facility] CenterU[facility] Ytuvbkb6613-98-70 08:16:00* Test Item Value Reference Range Interpretation Comments Urine Protein (test code = 5804-0) NEGATIVE NEGATIVE [facility] CenterUrine Glucose (UA)2019-12-04 08:16:00* Test Item Value Reference Range Interpretation Comments Urine Glucose (UA) (test code = 2349-9) NEGATIVE NEGATIVE [facility] CenterUrine Neiygvy4765-24-51 08:16:00* Test Item Value Reference Range Interpretation Comments Urine Ketones (test code = 24717-1) NEGATIVE NEGATIVE [facility] CenterU[facility] Ymsucviytyib0977-01-86 08:16:00* Test Item Value Reference Range Interpretation Comments Urine Urobilinogen (test code = 49289-2) 0.2 0.2-1 [facility] CenterUrine Cowzoduva3004-78-23 08:16:00* Test Item Value Reference Range Interpretation Comments Urine Bilirubin (test code = 1978-6) NEGATIVE NEGATIVE [facility] CenterU[facility] Ymhvc4664-33-13 08:16:00* Test Item Value Reference Range Interpretation Comments Urine Blood (test code = 42499-7) NEGATIVE NEGATIVE [facility] CenterWhite Blood Heglf0239-43-64 07:57:00* Test Item Value Reference Range Interpretation Comments White Blood Count (test code = 6690-2) 7.29 4.8-10.8 [facility] CenterRed Blood Ydsrt7829-63-35 07:57:00* Test Item Value Reference Range Interpretation Comments Red Blood Count (test code = 789-8) 4.38 3.6-5.1 [facility] CenterHemoglobin2020-04-20 07:57:00* Test Item Value Reference Range Interpretation Comments Hemoglobin (test code = 36432-4) 12.6 12.0-16.0 [facility] CenterHematocrit2020-04-20 07:57:00* Test Item Value Reference Range Interpretation Comments Hematocrit (test code = 4544-3) 38.2 34.2-44.1 [facility] CenterMean Corpuscular Ykytxr4093-42-69 07:57:00* Test Item Value Reference Range Interpretation Comments Mean Corpuscular Volume (test code = 787-2) 87.2 81-99 [facility] CenterMean Corpuscular Tagpfenkox6992-27-86 07:57:00* Test Item Value Reference Range Interpretation Comments Mean Corpuscular Hemoglobin (test code = 785-6) 28.8 28-32 [facility] CenterMean Corpuscular Hemoglobin Concent 2019-12-04 07:57:00* Test Item Value Reference Range Interpretation Comments Mean Corpuscular Hemoglobin Concent (test code = 786-4) 33.0 31-35 [facility] CenterRed Cell Distribution Rlsiv7302-93-97 07:57:00* Test Item Value Reference Range Interpretation Comments Red Cell Distribution Width (test code = 59466-4) 13.2 11.7 -14.4 [facility] CenterPlatelet Gfurc8409-36-05 07:57:00* Test Item Value Reference Range Interpretation Comments Platelet Count (test code = 777-3) 201 140-360 [facility] CenterNeutrophils (%) (Auto)2019-12-04 07:57:00 * Test Item Value Reference Range Interpretation Comments Neutrophils (%) (Auto) (test code = 85814-8) 51.3 38.7-80.0 [facility] CenterLymphocytes (%) (Auto)2019-12-04 07:57:00 * Test Item Value Reference Range Interpretation Comments Lymphocytes (%) (Auto) (test code = 736-9) 37.9 18.0-39.1 [facility] CenterMonocytes (%) (Auto)2019-12-04 07:57:00* Test Item Value Reference Range Interpretation Comments Monocytes (%) (Auto) (test code = 5905-5) 6.9 4.4-11.3 [facility] CenterEosinophils (%) (Auto)2019-12-04 07:57:00 * Test Item Value Reference Range Interpretation Comments Eosinophils (%) (Auto) (test code = 713-8) 3.3 0.0-6.0 [facility] CenterBasophils (%) (Auto)2019-12-04 07:57:00* Test Item Value Reference Range Interpretation Comments Basophils (%) (Auto) (test code = 706-2) 0.3 0.0-1.0 [facility] CenterIM GRANULOCYTES %2019-12-04 07:57:00* Test Item Value Reference Range Interpretation Comments IM GRANULOCYTES % (test code = IM GRANULOCYTES %) 0.3 0.0- 1.0 [facility] CenterNeutrophils # (Auto)2019-12-04 07:57:00* Test Item Value Reference Range Interpretation Comments Neutrophils # (Auto) (test code = 751-8) 3.8 2.1-6.9 [facility] CenterLymphocytes # (Auto)2019-12-04 07:57:00* Test Item Value Reference Range Interpretation Comments Lymphocytes # (Auto) (test code = 07612-0) 2.8 1.0-3.2 [facility] CenterMonocytes # (Auto)2019-12-04 07:57:00* Test Item Value Reference Range Interpretation Comments Monocytes # (Auto) (test code = 742-7) 0.5 0.2-0.8 [facility] CenterEosinophils # (Auto)2019-12-04 07:57:00* Test Item Value Reference Range Interpretation Comments Eosinophils # (Auto) (test code = 711-2) 0.2 0.0-0.4 [facility] CenterBasophils # (Auto)2019-12-04 07:57:00* Test Item Value Reference Range Interpretation Comments Basophils # (Auto) (test code = 704-7) 0.0 0.0-0.1 [facility] CenterAbsolute Immature Granulocyte (auto 2019-12-04 07:57:00* Test Item Value Reference Range Interpretation Comments Absolute Immature Granulocyte (auto (jesus t code = Absolute Immature Granulocyte (auto) 0.02 0-0.1 [facility] CenterBlood leukocytes automated count (number/volume)2019-12-04 07:34:00* Test Item Value Reference Range Interpretation Comments White Blood Count (test code = 6690-2) 7.29 4.8-10.8 [facility] CenterBlred [facility] erythrocytes automated count (number/volume)2019-12-04 07:34:00* Test Item Value Reference Range Interpretation Comments Red Blood Count (test code = 789-8) 4.38 3.6-5.1 [facility] CenterBlood hemoglobin measurement (moles/volume)2019-12-04 07:34:00* Test Item Value Reference Range Interpretation Comments Hemoglobin (test code = 19901-8) 12.6 12.0-16.0 [facility] CenterAutomated blood hematocrit (volume fraction)2019-12-04 07:34:00* Test Item Value Reference Range Interpretation Comments Hematocrit (test code = 4544-3) 38.2 34.2-44.1 [facility] CenterAutomated erythrocyte mean corpuscular gtswgw1759-34-41 07:34:00* Test Item Value Reference Range Interpretation Comments Mean Corpuscular Volume (test code = 787-2) 87.2 81-99 [facility] CenterAutomated erythrocyte mean corpuscular hemoglobin (mass per erythrocyte)2019-12-04 07:34:00* Test Item Value Reference Range Interpretation Comments Mean Corpuscular Hemoglobin (test code = 785-6) 28.8 28-32 [facility] CenterAutomated erythrocyte mean corpuscular hemoglobin concentration measurement (mass/volume)2019-12-04 07:34:00* Test Item Value Reference Range Interpretation Comments Mean Corpuscular Hemoglobin Concent (test code = 786-4) 33.0 31-35 [facility] CenterRDW LuiWn-Krn0669-62-20 07:34:00* Test Item Value Reference Range Interpretation Comments Red Cell Distribution Width (test code = 00075-8) 13.2 11.7 -14.4 [facility] CenterAutomated blood platelet count (count/volume)2019-12-04 07:34:00* Test Item Value Reference Range Interpretation Comments Platelet Count (test code = 777-3) 201 140-360 [facility] CenterAutomated blood segmented neutrophil count as percentage of total zrkhwptmay2738-21-22 07:34:00* Test Item Value Reference Range Interpretation Comments Neutrophils (%) (Auto) (test code = 39769-0) 51.3 38.7-80.0 [facility] CenterAutomated blood lymphocyte count as percentage ot total gswzzvfjfw9335-18-30 07:34:00* Test Item Value Reference Range Interpretation Comments Lymphocytes (%) (Auto) (test code = 736-9) 37.9 18.0-39.1 [facility] CenterAutomated blood monocyte count as percentage of total ghkmdtuabz8653-85-43 07:34:00* Test Item Value Reference Range Interpretation Comments Monocytes (%) (Auto) (test code = 5905-5) 6.9 4.4-11.3 [facility] CenterAutomated blood eosinophil count as percentage of total zqhvmmjdqp8854-80-57 07:34:00* Test Item Value Reference Range Interpretation Comments Eosinophils (%) (Auto) (test code = 713-8) 3.3 0.0-6.0 [facility] CenterAutomated blood basophil count as percentage of total owxqripxmf7642-30-96 07:34:00* Test Item Value Reference Range Interpretation Comments Basophils (%) (Auto) (test code = 706-2) 0.3 0.0-1.0 [facility] CenterFluoroscopic procedure less than one hour ewtmkesn2056-85-04 07:34:00* Test Item Value Reference Range Interpretation Comments IM GRANULOCYTES % (test code = IM GRANULOCYTES %) 0.3 0.0- 1.0 [facility] CenterAutomated blood neutrophil count 2019-12-04 07:34:00* Test Item Value Reference Range Interpretation Comments Neutrophils # (Auto) (test code = 751-8) 3.8 2.1-6.9 [facility] CenterBlood lymphocytes count (number/volume) 2019-12-04 07:34:00* Test Item Value Reference Range Interpretation Comments Lymphocytes # (Auto) (test code = 05831-1) 2.8 1.0-3.2 [facility] CenterBlood monocytes automated count (number/volume)2019-12-04 07:34:00* Test Item Value Reference Range Interpretation Comments Monocytes # (Auto) (test code = 742-7) 0.5 0.2-0.8 [facility] CenterAutomated blood eosinophil count 2019-12-04 07:34:00* Test Item Value Reference Range Interpretation Comments Eosinophils # (Auto) (test code = 711-2) 0.2 0.0-0.4 [facility] CenterAutomated blood basophil count (count/volume)2019-12-04 07:34:00* Test Item Value Reference Range Interpretation Comments Basophils # (Auto) (test code = 704-7) 0.0 0.0-0.1 [facility] CenterFluoroscopic procedure less than one hour qrcbwsql0592-95-52 07:34:00* Test Item Value Reference Range Interpretation Comments Absolute Immature Granulocyte (auto (jesus t code = Absolute Immature Granulocyte (auto) 0.02 0-0.1 [facility] CenterUrine color meyxisenpjgxb3983-18-28 07:34:00* Test Item Value Reference Range Interpretation Comments Urine Color (test code = 5778-6) YELLOW YELLOW [facility] CenterUrine tvzgxbf0791-57-61 07:34:00* Test Item Value Reference Range Interpretation Comments Urine Clarity (test code = 65486-6) CLEAR CLEAR [facility] gravity of Urine by Test strip 2019-12-04 07:34:00* Test Item Value Reference Range Interpretation Comments Urine Specific [place] (test code = 5811-5) 1.020 1.010-1.02 5 [facility] CenterUrine pH measurement by automated test cjlcw4871-65-73 07:34:00* Test Item Value Reference Range Interpretation Comments Urine pH (test code = 66250-4) 6 5-7 [facility] CenterUrine leukocyte esterase detection by cblogrcv0833-60-41 07:34:00* Test Item Value Reference Range Interpretation Comments Urine Leukocyte Esterase (test code = 5799-2) NEGATIVE NEGATIVE [facility] CenterUrine nitrite xorvrxxog0077-43-22 07:34:00* Test Item Value Reference Range Interpretation Comments Urine Nitrite (test code = 46099-5) NEGATIVE NEGATIVE [facility] CenterUrine protein measurement by test strip (mass/volume)2019-12-04 07:34:00* Test Item Value Reference Range Interpretation Comments Urine Protein (test code = 5804-0) NEGATIVE NEGATIVE [facility] CenterUrine glucose fhyibbnuz2559-44-82 07:34:00* Test Item Value Reference Range Interpretation Comments Urine Glucose (UA) (test code = 2349-9) NEGATIVE NEGATIVE [facility] CenterUrine ketones detection by automated test agtfx6180-63-56 07:34:00* Test Item Value Reference Range Interpretation Comments Urine Ketones (test code = 24255-7) NEGATIVE NEGATIVE [facility] CenterUrine urobilinogen measurement by test strip (mass/volume)2019-12-04 07:34:00* Test Item Value Reference Range Interpretation Comments Urine Urobilinogen (test code = 98133-8) 0.2 0.2-1 [facility] CenterUrine total bilirubin measurement (mass/volume)2019-12-04 07:34:00* Test Item Value Reference Range Interpretation Comments Urine Bilirubin (test code = 1978-6) NEGATIVE NEGATIVE [facility] CenterUrine erythrocytes rlmqejycg7048-13-16 07:34:00* Test Item Value Reference Range Interpretation Comments Urine Blood (test code = 78803-1) NEGATIVE NEGATIVE [facility] CenterAutomated urine sediment leukocyte count by microscopy (number/high power field)2019-12-04 07:34:00* Test Item Value Reference Range Interpretation Comments Urine WBC (test code = 5821-4) 0-5 0-5 [facility] CenterErythrocytes detection in urine sediment by light sqoghciyoj2530-70-67 07:34:00* Test Item Value Reference Range Interpretation Comments Urine RBC (test code = 45180-9) NONE 0-5 [facility] CenterBacteria detection in urine sediment by light rkznjpmads4507-41-72 07:34:00* Test Item Value Reference Range Interpretation Comments Urine Bacteria (test code = 10872-1) FEW NONE [facility] CenterEpithelial cells detection in urine sediment by light ofwhuvswza3573-46-72 07:34:00* Test Item Value Reference Range Interpretation Comments Urine Epithelial Cells (test code = 77094-2) FEW NONE [facility]herum or plasma sodium measurement (moles/volume)2019-12-04 07:34:00* Test Item Value Reference Range Interpretation Comments Sodium Level (test code = 2951-2) 140 136-145 [facility]herum or plasma potassium measurement (moles/volume)2019-12-04 07:34:00* Test Item Value Reference Range Interpretation Comments Potassium Level (test code = 2823-3) 4.0 3.5-5.1 [facility]herum or plasma chloride measurement (moles/volume)2019-12-04 07:34:00* Test Item Value Reference Range Interpretation Comments Chloride Level (test code = 2075-0) 106 98-107 [facility]herum or plasma carbon dioxide, total measurement (moles/volume)2019-12-04 07:34:00* Test Item Value Reference Range Interpretation Comments Carbon Dioxide Level (test code = 2028-9) 27 22-29 [facility]herum or plasma anion qqs9038-84-57 07:34:00* Test Item Value Reference Range Interpretation Comments Anion Gap (test code = 70914-7) 11.0 8-16 [facility]um or plasma urea nitrogen measurement (mass/volume)2019-12-04 07:34:00* Test Item Value Reference Range Interpretation Comments Blood Urea Nitrogen (test code = 3094-0) 19 7-26 [facility]herum or plasma creatinine measurement (mass/volume)2019-12-04 07:34:00* Test Item Value Reference Range Interpretation Comments Creatinine (test code = 2160-0) 0.71 0.57-1.11 [facility]um or plasma urea nitrogen/creatinine mass ozxin5841-47-24 07:34:00* Test Item Value Reference Range Interpretation Comments BUN/Creatinine Ratio (test code = 3097-3) 27 6-25 [facility] CenterEstimated glomerular filtration rate (GFR) kqnjozsokgmjx6742-35-72 07:34:00* Test Item Value Reference Range Interpretation Comments Estimat Glomerular Filtration Rate (test code = 108230578) > 60 >60 Ranges were taken from the National Kidney Disease Education Program and the [facility] literature.Reference ranges:60 or greater: Pfnqqw79-85 ( for 3 consecutive months): Chronic kidney disease 15 or less: Kidney failureEnnis Regional Medical CenterGlucose luumstytqpt0426-82-15 07:34:00* Test Item Value Reference Range Interpretation Comments Glucose Level (test code = RLY0627) 92 74-118 [facility] or plasma calcium measurement (mass/volume)2019-12-04 07:34:00* Test Item Value Reference Range Interpretation Comments Calcium Level (test code = 62703-3) 9.3 8.4-10.2 [facility] or plasma total bilirubin measurement (mass/volume)2019-12-04 07:34:00* Test Item Value Reference Range Interpretation Comments Total Bilirubin (test code = 1975-2) 0.3 0.2-1.2 [facility] CenterFluoroscopic procedure less than one hour vhsiakyc8375-66-56 07:34:00* Test Item Value Reference Range Interpretation Comments Aspartate Amino Transf (AST/SGOT) (test code = Aspartate Amino Transf (AST/SGOT)) 52 5-34 [facility]um or plasma alanine aminotransferase measurement (enzymatic activity/volume)2019-12-04 07:34:00* Test Item Value Reference Range Interpretation Comments Alanine Aminotransferase (ALT/SGPT) (test code = 1742-6) 80 0-55 [facility] or plasma protein measurement (mass/volume)2019-12-04 07:34:00* Test Item Value Reference Range Interpretation Comments Total Protein (test code = 2885-2) 7.3 6.5-8.1 [facility] or plasma albumin measurement (mass/volume)2019-12-04 07:34:00* Test Item Value Reference Range Interpretation Comments Albumin (test code = 1751-7) 3.3 3.5-5.0 [facility] CenterPlasma globulin measurement (mass/volume) 2019-12-04 07:34:00* Test Item Value Reference Range Interpretation Comments Globulin (test code = 31356-7) 4.0 2.3-3.5 [facility]um or plasma albumin/globulin mass vfxtw5580-15-92 07:34:00* Test Item Value Reference Range Interpretation Comments Albumin/Globulin Ratio (test code = 1759-0) 0.8 0.8-2.0 [facility]um or plasma alkaline phosphatase measurement (enzymatic activity/volume)2019-12-04 07:34:00* Test Item Value Reference Range Interpretation Comments Alkaline Phosphatase (test code = 6768-6) 83 40-150 [facility] MAMM BILATERAL EREN CAD DIGITAL 2019-09-19 13:10:29 - SCR MAMM BILATERAL EREN CAD DIGITALBILATERAL DIGITAL SCREENING MAMMOGRAM 3D/2D WITH CAD: 09/19/2019CLINICAL: Asymptomatic. Digital breast tomosynthesis was performed in addition to routine CC and MLO views. Current mammographic images were evaluated by either a [employer] M-Vu or a [employer] ImageChecker CAD (computer aided detection system). Comparison is made to exams dated 01/06/2018 mammogram and 08/31/2013 mammogram - [facility]- . There are scattered fibroglandular tissues in both breasts. No suspicious mass, architectural distortion, malignant type calcification, or lymph node abnormality detected. Breast architecture is stable compared to prior exams.IMPRESSION: NEGATIVEThere is no mammographic evidence of malignancy. Resume annual screening mammography in one year. Cooper Carter M.D. 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 SEE SYNOPTIC REPORT.P ART B LEFT LOBE OF THYROID, HEMITHYROIDECTOMY (6.0 GRAMS):THYROID WITHOUT SIGNIF ICANT HISTOPATHOLOGIC ALTERATION.NEGATIVE FOR MALIGNANCY. Signing Pathologi st Direct Phone Line: [phone] signed by James Davalos MD on 07/17/2019 [...] : pT1a [facility] Lymph Nodes (pN): pNX [id number] neoplasm of thyroi d glandA. RIGHT LOBE OF THYROID; B. LEFT LOBE OF THYROID.The case has two parts. A. Received in formalin labeled with the patient's name, accession number and "[facility]" is a 6.0 gm, 4.0 x 2.4 x 1.5 cm right thyroid lobe and isthmus. Pa rathyroid glands are not grossly appreciated. The anterior margin is inked blue, the posterior margin is inked black, and the isthmic margin is inked yellow. Th e specimen is serially sectioned from upper pole to lower pole to reveal a 1.0 x 0.7 x 0.7 cm, dahl-pink, ill-defined, homogeneous nodule at the lower pole that is abutting the anterior margin, is 0.1 cm from the isthmic margin, and 0.1 cm f rom the posterior margin. The remaining uninvolved cut surface is red and finely granular. Mental Health Nurse sections to include the entire nodule are submitted as follows;Section code:W6-K6-dycjpm nodule, lower poleA3-uninvolved thyroid, uppe r poleA4-uninvolved thyroid, mid polePart B. Received in formalin labeled with t he patient's name, accession number and "left thyroid" is a 6.0 gm, 3.6 x 2.5 x 1.5 cm focally disrupted left thyroid lobe and isthmus. Parathyroid glands are n ot grossly appreciated. The anterior margin is inked blue, the posterior margin is inked black, and the isthmic margin is inked yellow. The specimen is serially sectioned from upper pole to lower pole to reveal a red-brown, homogeneous, fin da granular cut surface. No discrete lesions are grossly appreciated. Represent ative sections to include the entire nodule are submitted as follows;Section cod e:B1-upper kwgfM0-L0-oqz nnskP6-I0-ornsn polePA/ewPerformed.[facility], Department of Pathology, [address] [place] [address], T el [phone] [facility] & Surgical [facility], Department of Pathology, [address] [place] [address], LrlfypSharp [facility], Department of Pathology, [address] [place] [address], Tel [phone] 12:50:00* Test Item Value Reference Range Interpretation Comments CALCIUM (BEAKER) (test code = 697) 9.9 mg/dL 8.4-10.2 CALCIUM, [id number] 08:49:00* Test Item Value Reference Range Interpretation Comments CALCIUM IONIZED (BEAKER) (test code = 698) 1.19 mmol/L 1.12-1.27 PH, BLOOD (BEAKER) (test code = 1810) 7.37 CALCIUM, [id number] 22:57:00* Test Item Value Reference Range Interpretation Comments CALCIUM IONIZED (BEAKER) (test code = 698) 1.12 mmol/L 1.12-1.27 PH, BLOOD (BEAKER) (test code = 1810) 7.38 PTH, [id number] 11:55:00* Test Item Value Reference Range Interpretation Comments PARATHYROID HORMONE INTACT (BEAKER) (test code = 577) 64.0 pg/mL 8.5-72.5 CALCIUM, [id number] 11:35:00* Test Item Value Reference Range Interpretation Comments CALCIUM IONIZED (BEAKER) (test code = 698) 1.08 mmol/L 1.12-1.27 L PH, BLOOD (BEAKER) (test code = 1810) 7.36 PROTHROMBIN TIME/[id number] 17:30:00* Test Item Value Reference Range Interpretation Comments PROTIME (BEAKER) (test code = 759) 13.1 seconds 11.9-14.2 INR (BEAKER) (test code = 370) 1.0 <=5.9 RECOMMENDED COUMADIN/WARFARIN INR THERAPY RANGESSTANDARD DOSE: 2.0 - 3.0 Inclu lilibeth: PROPHYLAXIS for venous thrombosis, systemic embolization; TREATMENT for leatha ous thrombosis and/or pulmonary embolus.HIGH RISK: Target INR is 2.5-3.5 for pat ients with mechanical heart valves.ZCUSBWCCLN9173-98-72 17:21:00* Test Item Value Reference Range Interpretation Comments HEMOGLOBIN (BEAKER) (test code = 410) 13.2 GM/DL 11.2-15.7 PLATELET [id number] 17:21:00* Test Item Value Reference Range Interpretation Comments PLATELET COUNT (BEAKER) (test code = 756) 204 K/CU MM 150-450 BONE and/or JOINT WHOLE TRKI2258-45-28 21:25:00 [facility] [address] [address] Patient Name: SASHA POPE MR #: [id number] : 1965 Age/Sex: 54/F Req #: [id number] [facility] Physician: Ordered by: STEPHANE DUNLAP M.D. Report #: [id number] Location: [place] Room/Bed: Procedure: 1104-0 004 NM/BONE and/or JOINT [...] COPY TO: STEPHANE DUNLAP M.D. Creatine Kinase [id number] 07:17:00* Test Item Value Reference Range Interpretation Comments Creatine Kinase MB (test code = 92990-6) 1.20 0-5.0 [facility] CenterTroponin P1330-05-14 07:17:00* Test Item Value Reference Range Interpretation Comments Troponin I (test code = ZET5364) < 0.001 0-0.300 [facility] CenterCreatine Kinase [id number] 07:17:00* Test Item Value Reference Range Interpretation Comments Creatine Kinase MB (test code = 75497-5) 1.20 0-5.0 [facility] CenterTroponin [id number] 07:17:00* Test Item Value Reference Range Interpretation Comments Troponin I (test code = 40765-9) < 0.001 0-0.300 [facility] CenterCreatine Eikagq8806-44-12 07:08:00* Test Item Value Reference Range Interpretation Comments Creatine Kinase (test code = 2157-6) 49 29-168 [facility] CenterCreatine Fvrpad5953-99-41 07:08:00* Test Item Value Reference Range Interpretation Comments Creatine Kinase (test code = 2157-6) 49 29-168 [facility] Dzjqt2334-76-51 06:25:00* Test Item Value Reference Range Interpretation Comments Sodium Level (test code = 2951-2) 138 136-145 [facility] CenterPotassium Kzhsf6007-34-38 06:25:00* Test Item Value Reference Range Interpretation Comments Potassium Level (test code = 2823-3) 4.2 3.5-5.1 [facility] CenterChloride Nwqwz0601-80-93 06:25:00* Test Item Value Reference Range Interpretation Comments Chloride Level (test code = 2075-0) 104 98-107 [facility] CenterCarbon Dioxide Knnau1442-54-83 06:25:00* Test Item Value Reference Range Interpretation Comments Carbon Dioxide Level (test code = 2028-9) 25 22-29 [facility] CenterAnion [id number] 06:25:00* Test Item Value Reference Range Interpretation Comments Anion Gap (test code = 39680-3) 13.2 8-16 [facility] CenterBlood Urea Ysyzpifd3667-79-14 06:25:00* Test Item Value Reference Range Interpretation Comments Blood Urea Nitrogen (test code = 3094-0) 14 7-26 [facility] CenterCreatinine2019-10-07 06:25:00* Test Item Value Reference Range Interpretation Comments Creatinine (test code = 2160-0) 0.76 0.57-1.11 [facility] CenterBUN/Creatinine Ogogs1930-87-29 06:25:00* Test Item Value Reference Range Interpretation Comments BUN/Creatinine Ratio (test code = 3097-3) 18 6-25 [facility] CenterEstimat Glomerular Filtration Rate 2019-05-22 06:25:00* Test Item Value Reference Range Interpretation Comments Estimat Glomerular Filtration Rate (test code = 518039381) > 60 >60 Ranges were taken from the National Kidney Disease Education Program and the [facility] Kidney Foundation literature.Reference ranges:60 or greater: Evguvr96-71 ( for 3 consecutive months): Chronic kidney disease 15 or less: Kidney failureEnnis [facility] Medical CenterGlucose Tgzhj8123-05-48 06:25:00* Test Item Value Reference Range Interpretation Comments Glucose Level (test code = HIV5375) 93 74-118 [facility] CenterCalcium Alvwh5835-61-88 06:25:00* Test Item Value Reference Range Interpretation Comments Calcium Level (test code = 06903-0) 9.2 8.4-10.2 [facility] CenterTotal Dhhcjswtc0002-34-72 06:25:00* Test Item Value Reference Range Interpretation Comments Total Bilirubin (test code = 1975-2) 0.2 0.2-1.2 [facility] CenterAspartate Amino Transf (AST/SGOT) 2019-05-22 06:25:00* Test Item Value Reference Range Interpretation Comments Aspartate Amino Transf (AST/SGOT) (test code = Aspartate Amino Transf (AST/SGOT)) 53 5-34 H [facility] CenterAlanine Aminotransferase (ALT/SGPT) 2019-05-22 06:25:00* Test Item Value Reference Range Interpretation Comments Alanine Aminotransferase (ALT/SGPT) (test code = 1742-6) 65 0-55 H [facility] CenterTotal Tabxtmz4833-79-89 06:25:00* Test Item Value Reference Range Interpretation Comments Total Protein (test code = 2885-2) 7.2 6.5-8.1 [facility] CenterAlbumin2019-10-07 06:25:00* Test Item Value Reference Range Interpretation Comments Albumin (test code = 1751-7) 3.2 3.5-5.0 L [facility] CenterGlobulin2019-10-07 06:25:00* Test Item Value Reference Range Interpretation Comments Globulin (test code = 21216-7) 4.0 2.3-3.5 H [facility] CenterAlbumin/Globulin Dpvin9059-14-35 06:25:00 * Test Item Value Reference Range Interpretation Comments Albumin/Globulin Ratio (test code = 1759-0) 0.8 0.8-2.0 [facility] CenterAlkaline Ppakdwpkipq1274-21-56 06:25:00* Test Item Value Reference Range Interpretation Comments Alkaline Phosphatase (test code = 6768-6) 79 40-150 [facility] CenterWhite Blood Yczpd1706-69-00 06:09:00* Test Item Value Reference Range Interpretation Comments White Blood Count (test code = 6690-2) 6.07 4.8-10.8 [facility] CenterRed Blood Vuchf4649-70-50 06:09:00* Test Item Value Reference Range Interpretation Comments Red Blood Count (test code = 789-8) 4.26 3.6-5.1 [facility] CenterHemoglobin2019-10-07 06:09:00* Test Item Value Reference Range Interpretation Comments Hemoglobin (test code = 90170-2) 12.4 12.0-16.0 [facility] CenterHematocrit2019-10-07 06:09:00* Test Item Value Reference Range Interpretation Comments Hematocrit (test code = 4544-3) 37.5 34.2-44.1 [facility] CenterMean Corpuscular Sbqgzl9603-44-46 06:09:00* Test Item Value Reference Range Interpretation Comments Mean Corpuscular Volume (test code = 787-2) 88.0 81-99 [facility] CenterMean Corpuscular Nauzjaxdoo3957-73-11 06:09:00* Test Item Value Reference Range Interpretation Comments Mean Corpuscular Hemoglobin (test code = 785-6) 29.1 28-32 [facility] CenterMean Corpuscular Hemoglobin Concent 2019-05-22 06:09:00* Test Item Value Reference Range Interpretation Comments Mean Corpuscular Hemoglobin Concent (test code = 786-4) 33.1 31-35 [facility] CenterRed Cell Distribution Xlyjk2682-45-62 06:09:00* Test Item Value Reference Range Interpretation Comments Red Cell Distribution Width (test code = 21836-3) 13.6 11.7 -14.4 [facility] CenterPlatelet Twkzh2219-76-96 06:09:00* Test Item Value Reference Range Interpretation Comments Platelet Count (test code = 777-3) 182 140-360 [facility] CenterNeutrophils (%) (Auto)2019-05-22 06:09:00 * Test Item Value Reference Range Interpretation Comments Neutrophils (%) (Auto) (test code = 33965-4) 49.6 38.7-80.0 [facility] CenterLymphocytes (%) (Auto)2019-05-22 06:09:00 * Test Item Value Reference Range Interpretation Comments Lymphocytes (%) (Auto) (test code = 736-9) 37.9 18.0-39.1 [facility] CenterMonocytes (%) (Auto)2019-05-22 06:09:00* Test Item Value Reference Range Interpretation Comments Monocytes (%) (Auto) (test code = 5905-5) 6.9 4.4-11.3 [facility] CenterEosinophils (%) (Auto)2019-05-22 06:09:00 * Test Item Value Reference Range Interpretation Comments Eosinophils (%) (Auto) (test code = 713-8) 5.1 0.0-6.0 [facility] CenterBasophils (%) (Auto)2019-05-22 06:09:00* Test Item Value Reference Range Interpretation Comments Basophils (%) (Auto) (test code = 706-2) 0.3 0.0-1.0 [facility] CenterIM GRANULOCYTES %2019-05-22 06:09:00* Test Item Value Reference Range Interpretation Comments IM GRANULOCYTES % (test code = IM GRANULOCYTES %) 0.2 0.0- 1.0 [facility] CenterNeutrophils # (Auto)2019-05-22 06:09:00* Test Item Value Reference Range Interpretation Comments Neutrophils # (Auto) (test code = 751-8) 3.0 2.1-6.9 [facility] CenterLymphocytes # (Auto)2019-05-22 06:09:00* Test Item Value Reference Range Interpretation Comments Lymphocytes # (Auto) (test code = 11090-5) 2.3 1.0-3.2 [facility] CenterMonocytes # (Auto)2019-05-22 06:09:00* Test Item Value Reference Range Interpretation Comments Monocytes # (Auto) (test code = 742-7) 0.4 0.2-0.8 [facility] CenterEosinophils # (Auto)2019-05-22 06:09:00* Test Item Value Reference Range Interpretation Comments Eosinophils # (Auto) (test code = 711-2) 0.3 0.0-0.4 [facility] CenterBasophils # (Auto)2019-05-22 06:09:00* Test Item Value Reference Range Interpretation Comments Basophils # (Auto) (test code = 704-7) 0.0 0.0-0.1 [facility] CenterAbsolute Immature Granulocyte (auto 2019-05-22 06:09:00* Test Item Value Reference Range Interpretation Comments Absolute Immature Granulocyte (auto (jesus t code = Absolute Immature Granulocyte (auto) 0.01 0-0.1 [facility] or plasma creatine kinase measurement (enzymatic activity/volume)2019-05-22 05:00:00* Test Item Value Reference Range Interpretation Comments Creatine Kinase (test code = 2157-6) 49 29-168 [facility] or plasma creatine kinase MB measurement (mass/volume)2019-05-22 05:00:00* Test Item Value Reference Range Interpretation Comments Creatine Kinase MB (test code = 31317-9) 1.20 0-5.0 [facility] CenterTroponin I measurement by highly sensitive enzyme hooqhpofbtr9980-24-21 05:00:00* Test Item Value Reference Range Interpretation Comments Troponin I (test code = 26366-6) < 0.001 0-0.300 [facility] CenterLDL Hnbkhqqyasx6043-48-01 16:49:00* Test Item Value Reference Range Interpretation Comments LDL Cholesterol (test code = 2089-1) 118 60-130 [facility] Osylwmwhaii5885-37-70 16:49:00* Test Item Value Reference Range Interpretation Comments HDL Cholesterol (test code = 2085-9) 47 40-60 [facility] CenterCholesterol/HDL Hkcaq2617-77-22 16:49:00 * Test Item Value Reference Range Interpretation Comments Cholesterol/HDL Ratio (test code = 9830-1) 4.3 3.0-3.6 H [facility] CenterLDL Frfnfpnvboq8049-41-97 16:49:00* Test Item Value Reference Range Interpretation Comments LDL Cholesterol (test code = 2089-1) 118 60-130 [facility] Dslrtoqlqpc2164-12-91 16:49:00* Test Item Value Reference Range Interpretation Comments HDL Cholesterol (test code = 2085-9) 47 40-60 [facility] CenterCholesterol/HDL Xzsvg6047-99-00 16:49:00 * Test Item Value Reference Range Interpretation Comments Cholesterol/HDL Ratio (test code = 9830-1) 4.3 3.0-3.6 H [facility] CenterB-Type Natriuretic Utvgdiv3952-72-58 14:05:00* Test Item Value Reference Range Interpretation Comments B-Type Natriuretic Peptide (test code = 92128-3) 41.4 0-100 [facility] CenterThyroid Stimulating Hormone (TSH) 2019-05-21 14:05:00* Test Item Value Reference Range Interpretation Comments Thyroid Stimulating Hormone (TSH) (test code = 24407-9) 3.405 0.350-4.940 [facility] CenterB-Type Natriuretic Hqbpvmc7750-48-72 14:05:00* Test Item Value Reference Range Interpretation Comments B-Type Natriuretic Peptide (test code = 13241-6) 41.4 0-100 [facility] CenterThyroid Stimulating Hormone (TSH) 2019-05-21 14:05:00* Test Item Value Reference Range Interpretation Comments Thyroid Stimulating Hormone (TSH) (test code = 20742-1) 3.405 0.350-4.940 [facility] Test - Treadmill SFDC0556-35-45 13:30:00 [facility] [address] [address] Patient Name : SASHA POPE MR #: [id number] : 1965 Age/Sex: 54/F Adm Physician : CIRO HERNANDEZ MD Admit Date : 05/20/19 Location : [facility] Room/Bed : [facility] REPORT: EXERCISE STRESS TEST DATE OF STUDY: [...] AVF and V6. Clinical correlation recommended. The patien t not having typical angina. Chest pain can be observed on medication and re- evaluate depending on her symptoms. All this discussed and explained to the p atient at length. Questions are answered. MD CARRIE Cruz/RACHELL /[id number] Signature Date Dictated By: OTTO STACY MD Transcribed By: RACHELL on 07/24/19 < Electronically signed by OTTO STACY MD><<Signature on File>>07/28/19 1219 COPY TO: Triglycerides Wwsxv0663-08-93 12:37:00* Test Item Value Reference Range Interpretation Comments Triglycerides Level (test code = 2571-8) 195 0-149 H [facility] CenterCholesterol Zhoqn2863-84-32 12:37:00* Test Item Value Reference Range Interpretation Comments Cholesterol Level (test code = 2093-3) 204 0-199 H Less than 200 mg/dL Low Eaxf907 - 239 mg/dL Borderline Lwns911 m g/dl and greater High Risk [facility] CenterTriglycerides Zsrgz5032-09-51 12:37:00* Test Item Value Reference Range Interpretation Comments Triglycerides Level (test code = 2571-8) 195 0-149 H [facility] CenterCholesterol Wyhhn0797-20-34 12:37:00* Test Item Value Reference Range Interpretation Comments Cholesterol Level (test code = 2093-3) 204 0-199 H Less than 200 mg/dL Low Wlkn789 - 239 mg/dL Borderline Vphp024 m g/dl and greater High Risk [facility] or plasma triglyceride measurement (mass/volume)2019-05-21 09:08:00* Test Item Value Reference Range Interpretation Comments Triglycerides Level (test code = 2571-8) 195 0-149 [facility] or plasma cholesterol measurement (mass/volume)2019-05-21 09:08:00* Test Item Value Reference Range Interpretation Comments Cholesterol Level (test code = 2093-3) 204 0-199 Less than 200 mg/dL Low Nqte068 - 239 mg/dL Borderline Hibq871 m g/dl and greater High Risk [facility] or plasma cholesterol in LDL measurement (mass/volume) 2019-05-21 09:08:00* Test Item Value Reference Range Interpretation Comments LDL Cholesterol (test code = 2089-1) 118 60-130 [facility] or plasma cholesterol in HDL measurement (mass/volume)2019-05-21 09:08:00* Test Item Value Reference Range Interpretation Comments HDL Cholesterol (test code = 2085-9) 47 40-60 [facility] or plasma total cholesterol/cholesterol in HDL mass tgsyn2447-28-66 09:08:00* Test Item Value Reference Range Interpretation Comments Cholesterol/HDL Ratio (test code = 9830-1) 4.3 3.0-3.6 [facility] CenterBNP Mqc-rKbz3023-12-06 09:08:00* Test Item Value Reference Range Interpretation Comments B-Type Natriuretic Peptide (test code = 02914-6) 41.4 0-100 [facility] or plasma thyrotropin measurement by detection limit <= 0.005 miu/l (units/volume)2019-05-21 09:08:00* Test Item Value Reference Range Interpretation Comments Thyroid Stimulating Hormone (TSH) (test code = 44433-9) 3.405 0.350-4.940 [facility] CenterCT CHEST WITH CWGIPKBR-QWMV9215-90-05 19:19:00 [facility] [address] [place] [address] Patient Name: SASHA POPE MR #: [id number] : 1965 Age/Sex: 54/F Req #: [id number] Adm Physician: Ordered by: MARIA ISABEL ARIAS DO Report #: [id number] Location: [facility] Room/Bed: Procedure: 1005-000 7 HOPD/CT CHEST WITH [...] ISABEL ARIAS DO Urinalysis with Culture, if zjweyfbau0677-44-75 00:48:50* Test Item Value Reference Range Interpretation [...] created by rule GL_SJM_UA_MICRO_IND CT Chest w/ Gailwgfn7914-16-13 00:21:51Patient: SASHA POPE Date/Time04/26/2019 23:21 CDTReason for ExamDyspneaReportLOCATION: [id number]: 54-year-old female, complains of dyspneaCOMMENT:Axial CT imaging [...] LSigned (Electronic Signature): 04/27/2019 0:21 amComprehensive Metabolic Ajzqh2445-03-49 00:05:26* Test Item Value Reference Range Interpretation [...] A/G Ratio) 1.1 ratio N Comprehensive Metabolic Vobbo4276-75-92 00:05:26* Test Item Value Reference Range Interpretation [...] is not provided, and the patient is -[place]kin[place], multiply by 1.212. If sex is not [...] is not provided, and the patient is -[place]kin[place], multiply by 1.212. If sex is not [...] the National Kidney Foundation, http://nkdep.nih.gov Comprehensive Metabolic Vlvxs3804-05-19 00:05:26* Test Item Value Reference Range Interpretation [...] is not provided, and the patient is -[place]kin[place], multiply by 1.212. If sex is not [...] is not provided, and the patient is -[place]kin[place], multiply by 1.212. If sex is not [...] Kidney Foundation, http://nkdep.nih.gov CT Spine Thoracic w/ Dstmaczt5634-71-46 23:56:08Patient: SASHA POPE Date/Time04/26/2019 23:21 CDTReason for ExamRule out mets;Back painReportLOCATION: [id number]: 54-year-old female presents with back pain. Clinical [...] Signature): 04/26/2019 11:56 pmCT Spine Lumbar w/ Lgontuyr8952-27-20 23:56:08Patient: SASHA POPE Date/Time04/26/2019 23:21 CDTReason for ExamRule out at mets;Back painReportLOCATION: [id number]: 54-year-old female presents with back pain. Clinical [...] Signature): 04/26/2019 11:56 pm Prothrombin Time and NMC6209-04-85 23:34:42* Test Item Value Reference Range Interpretation Comments Prothrombin Time (test code = Prothrombin Time) 11.7 seconds 9.8-13 .4 INR (test code = INR) 1.0 ratio 0.6-1.2 Partial Thromboplastin Muss7865-81-74 23:34:42* Test Item Value Reference Range Interpretation Comments Partial Thromboplastin Time (test code = Partial Throm boplastin Time) 31.30 seconds 24.39-37.25 Comprehensive Metabolic Egont3014-24-20 22:45:31* Test Item Value Reference Range Interpretation [...] falsely elevated. Suggest verify by recollect.alessandra blankenship Globulin (test code = Globulin) 3.9 g/dL 2.9-3.1 H A/G Ratio (test code = A/G Ratio) 1.1 ratio N Comprehensive Metabolic Jimoi0869-28-49 22:45:31* Test Item Value Reference Range Interpretation [...] is not provided, and the patient is -Burkin[place], multiply by 1.212. If sex is not [...] the National Kidney Foundation, http://nkdep.nih.gov Comprehensive Metabolic Rconz6740-58-98 22:45:31* Test Item Value Reference Range Interpretation [...] is not provided, and the patient is -Burkinan, multiply by 1.212. If sex is not [...] is not provided, and the patient is -Burkinan, multiply by 1.212. If sex is not [...] Kidney Foundation, http://nkdep.nih.gov Complete Blood Count with Jlfevuttqfyv8436-51-63 22:18:35* Test Item Value Reference Range Interpretation [...] code = IPF) 0 % N Automated Zzhplrggbzcb1219-83-50 22:18:35* Test Item Value Reference Range Interpretation Comments Neutro Auto (test code = Neutro Auto) 58.5 % 36.0-70.0 Lymph Auto (test code = Lymph Auto) 32.2 % 12.0-44.0 Lewis Auto (test code = Lewis Auto) 5.7 % 0.0-11.0 Eos, Auto (test code = Eos, Auto) 2.9 % 0.0-7.0 Basophil Auto (test code = Basophil Auto) 0.5 % 0.0-2.0 Neutro Absolute (test code = Neutro Absolute) 5.0 x10 1.6-7.4 Lymph Absolute (test code = Lymph Absolute) 2.76 x10 .50-4.60 Lewis Absolute (test code = Lewis Absolute) .49 x10 .00-1.20 Eos Absolute (test code = Eos Absolute) 0.25 x10 0.00-0.74 Baso Absolute (test code = Baso Absolute) 0.04 x10 0.00-0.21 IG Nxjyq2354-80-01 22:18:35* Test Item Value Reference Range Interpretation Comments IG (test code = IG) 0.2 % 0.0-5.0 IG Abs (test code = IG Abs) 0 x10 N XR Chest 2 Ldgoq5968-46-45 20:50:04Patient: SASHA POPE Date/Time04/26/2019 20:43 CDTReason for ExamShortness of breathReportHISTORY: Shortness of breathLocation code: T48WVIK: 2 VIEW CHEST X-RAY.COMPARISON: NoneCOMMENT: PA and lateral views are provided. No acute infiltrate or effusion is seen. Cardiomediastinal silhouette is within normal limits. No acute bony abnormalities.IMPRESSION: No acute disease. Final Dictated by: MD Umana Roman PDictated DT/TM: 04/26/2019 8:49 pmSigned by: MD Umana Roman PSigned (Electronic Signature): 04/26/2019 8:50 pmCT ABD/PEL WO XMUHGETO-TBMI2714-15-08 13:27:00 [facility] [address] [address] Patient Name: SASHA POPE MR #: [id number] : Age/Sex: 54/F Req #: [id number] Adm Physician: Ordered by: DYLAN ARTIS MD Report #: [id number] Location: [facility] Room/Bed: Procedure: 0908- 0004 HOPD/CT ABD/PEL WO CONTRAST-HOPD Exam Date: 04/23/19 Exam Time: 1227 REPORT STATUS : Signed EXAMINATION: CT of the abdomen and [...] 1:34 PM Dictated By: ISHMAEL KATHLEEN MD 1338 Transcribed By: GARO on 04/23/19 1334 COPY TO: DYLAN ARTIS MD Creatine Kinase QA4160-81-20 05:43:00* Test Item Value Reference Range Interpretation Comments Creatine Kinase MB (test code = 11318-5) 1.30 0-5.0 [facility] CenterTr[facility] C7815-54-63 05:43:00* Test Item Value Reference Range Interpretation Comments Troponin I (test code = HEJ7297) < 0.001 0-0.300 [facility] CenterCreatine Kinase GS4866-31-74 05:43:00* Test Item Value Reference Range Interpretation Comments Creatine Kinase MB (test code = 50895-4) 1.30 0-5.0 [facility] CenterTroponin E6904-07-19 05:43:00* Test Item Value Reference Range Interpretation Comments Troponin I (test code = RCP0322) < 0.001 0-0.300 [facility] Southodium Uiqiy1939-22-80 05:36:00* Test Item Value Reference Range Interpretation Comments Sodium Level (test code = 2951-2) 138 136-145 [facility] CenterPotassium Kdhms1663-41-01 05:36:00* Test Item Value Reference Range Interpretation Comments Potassium Level (test code = 2823-3) 4.0 3.5-5.1 [facility] CenterChloride Qfchm2726-39-50 05:36:00* Test Item Value Reference Range Interpretation Comments Chloride Level (test code = 2075-0) 104 98-107 [facility] CenterCarbon Dioxide Ucrzs7350-34-10 05:36:00* Test Item Value Reference Range Interpretation Comments Carbon Dioxide Level (test code = 2028-9) 25 22-29 [facility] CenterAnion Pbl4844-43-34 05:36:00* Test Item Value Reference Range Interpretation Comments Anion Gap (test code = 10753-4) 13.0 8-16 [facility] CenterBlood Urea Ecwvdlqn8342-45-01 05:36:00* Test Item Value Reference Range Interpretation Comments Blood Urea Nitrogen (test code = 3094-0) 16 7-26 [facility] CenterCreatinine2019-07-10 05:36:00* Test Item Value Reference Range Interpretation Comments Creatinine (test code = 2160-0) 0.73 0.57-1.11 [facility] CenterBUN/Creatinine Msxoy3523-05-00 05:36:00* Test Item Value Reference Range Interpretation Comments BUN/Creatinine Ratio (test code = 3097-3) 22 6-25 [facility] CenterEstimat Glomerular Filtration Rate 2019-02-22 05:36:00* Test Item Value Reference Range Interpretation Comments Estimat Glomerular Filtration Rate (test code = 760166180) > 60 >60 Ranges were taken from the National Kidney Disease Education Program and the [facility] Kid[facility] Foundation literature.Reference ranges:60 or greater: Jvpqjp04-37 ( for 3 consecutive months): Chronic kidney disease 15 or less: Kidney failureEnnis Regional Medical CenterGlucose Bqzqb8815-76-26 05:36:00* Test Item Value Reference Range Interpretation Comments Glucose Level (test code = DPT7847) 99 74-118 [facility] CenterCalcium Divgf1688-74-46 05:36:00* Test Item Value Reference Range Interpretation Comments Calcium Level (test code = 45729-9) 9.5 8.4-10.2 [facility] CenterTotal Bsijtfvjl5879-82-00 05:36:00* Test Item Value Reference Range Interpretation Comments Total Bilirubin (test code = 1975-2) 0.4 0.2-1.2 [facility] CenterAspartate Amino Transf (AST/SGOT) 2019-02-22 05:36:00* Test Item Value Reference Range Interpretation Comments Aspartate Amino Transf (AST/SGOT) (test code = Aspartate Amino Transf (AST/SGOT)) 46 5-34 H [facility] CenterAlanine Aminotransferase (ALT/SGPT) 2019-02-22 05:36:00* Test Item Value Reference Range Interpretation Comments Alanine Aminotransferase (ALT/SGPT) (test code = 1742-6) 61 0-55 H [facility] CenterTotal Kxobdgv4922-43-01 05:36:00* Test Item Value Reference Range Interpretation Comments Total Protein (test code = 2885-2) 8.0 6.5-8.1 [facility] CenterAlbumin2019-07-10 05:36:00* Test Item Value Reference Range Interpretation Comments Albumin (test code = 1751-7) 3.6 3.5-5.0 [facility] CenterGlobulin2019-07-10 05:36:00* Test Item Value Reference Range Interpretation Comments Globulin (test code = 73793-9) 4.4 2.3-3.5 H [facility] CenterAlbumin/Globulin Smogp9718-70-56 05:36:00 * Test Item Value Reference Range Interpretation Comments Albumin/Globulin Ratio (test code = 1759-0) 0.8 0.8-2.0 [facility] CenterAlkaline Beljxhpdbta5785-84-12 05:36:00* Test Item Value Reference Range Interpretation Comments Alkaline Phosphatase (test code = 6768-6) 97 40-150 [facility] CenterCreatine Ddwkdy9281-34-87 05:36:00* Test Item Value Reference Range Interpretation Comments Creatine Kinase (test code = 2157-6) 80 29-168 [facility]odium Efjsf3268-70-36 05:36:00* Test Item Value Reference Range Interpretation Comments Sodium Level (test code = 2951-2) 138 136-145 [facility] CenterPotassium Qsaxv8242-86-11 05:36:00* Test Item Value Reference Range Interpretation Comments Potassium Level (test code = 2823-3) 4.0 3.5-5.1 [facility] CenterChloride Eqpkq9647-35-11 05:36:00* Test Item Value Reference Range Interpretation Comments Chloride Level (test code = 2075-0) 104 98-107 [facility] CenterCarbon Dioxide Uqxbz8383-00-24 05:36:00* Test Item Value Reference Range Interpretation Comments Carbon Dioxide Level (test code = 2028-9) 25 -29 [facility] CenterAnion Frt1206-17-74 05:36:00* Test Item Value Reference Range Interpretation Comments Anion Gap (test code = 92299-9) 13.0 8-16 [facility] CenterBlood Urea Vnislcwz7380-74-18 05:36:00* Test Item Value Reference Range Interpretation Comments Blood Urea Nitrogen (test code = 3094-0) 16 7-26 [facility] CenterCreatinine2019-07-10 05:36:00* Test Item Value Reference Range Interpretation Comments Creatinine (test code = 2160-0) 0.73 0.57-1.11 [facility] CenterBUN/Creatinine Izouo2356-01-39 05:36:00* Test Item Value Reference Range Interpretation Comments BUN/Creatinine Ratio (test code = 3097-3) 22 6- [facility] CenterEstimat Glomerular Filtration Rate 2019-02-22 05:36:00* Test Item Value Reference Range Interpretation Comments Estimat Glomerular Filtration Rate (test code = 579544337) > 60 >60 Ranges were taken from the National Kidney Disease Education Program and the [facility] Kidney Foundation literature.Reference ranges:60 or greater: Typkzj20-51 ( for 3 consecutive months): Chronic kidney disease 15 or less: Kidney failureEnnis Regional Medical CenterGlucose Bscqo7213-09-05 05:36:00* Test Item Value Reference Range Interpretation Comments Glucose Level (test code = NUA7776) 99 74-118 [facility] CenterCalcium Hkije6993-74-59 05:36:00* Test Item Value Reference Range Interpretation Comments Calcium Level (test code = 89645-1) 9.5 8.4-10.2 [facility] CenterTotal Idomeeqjp9674-95-35 05:36:00* Test Item Value Reference Range Interpretation Comments Total Bilirubin (test code = 1975-2) 0.4 0.2-1.2 [facility] CenterAspartate Amino Transf (AST/SGOT) 2019-02-22 05:36:00* Test Item Value Reference Range Interpretation Comments Aspartate Amino Transf (AST/SGOT) (test code = Aspartate Amino Transf (AST/SGOT)) 46 5-34 H [facility] CenterAlanine Aminotransferase (ALT/SGPT) 2019-02-22 05:36:00* Test Item Value Reference Range Interpretation Comments Alanine Aminotransferase (ALT/SGPT) (test code = 1742-6) 61 0-55 H [facility] CenterTotal Ksxwtnl0875-02-81 05:36:00* Test Item Value Reference Range Interpretation Comments Total Protein (test code = 2885-2) 8.0 6.5-8.1 [facility] CenterAlbumin2019-07-10 05:36:00* Test Item Value Reference Range Interpretation Comments Albumin (test code = 1751-7) 3.6 3.5-5.0 [facility] CenterGlobulin2019-07-10 05:36:00* Test Item Value Reference Range Interpretation Comments Globulin (test code = 04098-5) 4.4 2.3-3.5 H [facility] CenterAlbumin/Globulin Vawjv4027-63-30 05:36:00 * Test Item Value Reference Range Interpretation Comments Albumin/Globulin Ratio (test code = 1759-0) 0.8 0.8-2.0 [facility] CenterAlkaline Dpacjrkzyjt7290-58-45 05:36:00* Test Item Value Reference Range Interpretation Comments Alkaline Phosphatase (test code = 6768-6) 97 40-150 [facility] CenterCreatine Gwslek9311-15-84 05:36:00* Test Item Value Reference Range Interpretation Comments Creatine Kinase (test code = 2157-6) 80 29-168 [facility] CenterCHEST SINGLE (PORTABLE)2019-02-22 05:32:00 [facility] [address] [address] Patient Name: SASHA POPE MR #: [id number] : 1965 Age/Sex: 54/F Req #: [id number] Adm Physician: Ordered by: ANN CHADWICK MD Report #: [id number] Location: ER Room/Bed: Procedure: [id number] DX/CHEST SINGLE (PORTABLE) Exam Date: 02/22/19 Exam [...] JEFF DO 3 Transcribed By: GARO on 02/22/1934 COPY TO: JAYY CHADWICK MD White Blood Rqhjj1903-25-50 05:24:00* Test Item Value Reference Range Interpretation Comments White Blood Count (test code = 6690-2) 6.24 4.8-10.8 [facility] CenterRed Blood Oofgk0721-67-65 05:24:00* Test Item Value Reference Range Interpretation Comments Red Blood Count (test code = 789-8) 4.42 3.6-5.1 [facility] CenterHemoglobin2019-07-10 05:24:00* Test Item Value Reference Range Interpretation Comments Hemoglobin (test code = 20726-0) 12.9 12.0-16.0 [facility] CenterHematocrit2019-07-10 05:24:00* Test Item Value Reference Range Interpretation Comments Hematocrit (test code = 4544-3) 39.2 34.2-44.1 [facility] CenterMean Corpuscular Yocwry3189-87-66 05:24:00* Test Item Value Reference Range Interpretation Comments Mean Corpuscular Volume (test code = 787-2) 88.7 81-99 [facility] CenterMean Corpuscular Tedcbnocqa6600-93-71 05:24:00* Test Item Value Reference Range Interpretation Comments Mean Corpuscular Hemoglobin (test code = 785-6) 29.2 28-32 [facility] CenterMean Corpuscular Hemoglobin Concent 2019-02-22 05:24:00* Test Item Value Reference Range Interpretation Comments Mean Corpuscular Hemoglobin Concent (test code = 786-4) 32.9 31-35 [facility] CenterRed Cell Distribution Ouzye3010-77-53 05:24:00* Test Item Value Reference Range Interpretation Comments Red Cell Distribution Width (test code = 20454-3) 13.8 11.7 -14.4 [facility] CenterPlatelet Gijbt4049-89-29 05:24:00* Test Item Value Reference Range Interpretation Comments Platelet Count (test code = 777-3) 202 140-360 [facility] CenterNeutrophils (%) (Auto)2019-02-22 05:24:00 * Test Item Value Reference Range Interpretation Comments Neutrophils (%) (Auto) (test code = 94032-7) 47.3 38.7-80.0 [facility] CenterLymphocytes (%) (Auto)2019-02-22 05:24:00 * Test Item Value Reference Range Interpretation Comments Lymphocytes (%) (Auto) (test code = 736-9) 40.9 18.0-39.1 H [facility] CenterMonocytes (%) (Auto)2019-02-22 05:24:00* Test Item Value Reference Range Interpretation Comments Monocytes (%) (Auto) (test code = 5905-5) 7.2 4.4-11.3 [facility] CenterEosinophils (%) (Auto)2019-02-22 05:24:00 * Test Item Value Reference Range Interpretation Comments Eosinophils (%) (Auto) (test code = 713-8) 3.8 0.0-6.0 [facility] CenterBasophils (%) (Auto)2019-02-22 05:24:00* Test Item Value Reference Range Interpretation Comments Basophils (%) (Auto) (test code = 706-2) 0.5 0.0-1.0 [facility] CenterIM GRANULOCYTES %2019-02-22 05:24:00* Test Item Value Reference Range Interpretation Comments IM GRANULOCYTES % (test code = IM GRANULOCYTES %) 0.3 0.0- 1.0 [facility] CenterNeutrophils # (Auto)2019-02-22 05:24:00* Test Item Value Reference Range Interpretation Comments Neutrophils # (Auto) (test code = 751-8) 3.0 2.1-6.9 [facility] CenterLymphocytes # (Auto)2019-02-22 05:24:00* Test Item Value Reference Range Interpretation Comments Lymphocytes # (Auto) (test code = 74524-5) 2.6 1.0-3.2 [facility] CenterMonocytes # (Auto)2019-02-22 05:24:00* Test Item Value Reference Range Interpretation Comments Monocytes # (Auto) (test code = 742-7) 0.5 0.2-0.8 [facility] CenterEosinophils # (Auto)2019-02-22 05:24:00* Test Item Value Reference Range Interpretation Comments Eosinophils # (Auto) (test code = 711-2) 0.2 0.0-0.4 [facility] CenterBasophils # (Auto)2019-02-22 05:24:00* Test Item Value Reference Range Interpretation Comments Basophils # (Auto) (test code = 704-7) 0.0 0.0-0.1 [facility] CenterAbsolute Immature Granulocyte (auto 2019-02-22 05:24:00* Test Item Value Reference Range Interpretation Comments Absolute Immature Granulocyte (auto (jesus t code = Absolute Immature Granulocyte (auto) 0.02 0-0.1 [facility] CenterProthrombin [id number] 05:24:00* Test Item Value Reference Range Interpretation Comments Prothrombin Time (test code = 5902-2) 12.9 11.9-14.5 [facility] CenterProthromb Time International Ratio 2019-02-22 05:24:00* Test Item Value Reference Range Interpretation Comments Prothromb Time International Ratio (test code = 6301-6) 0.92 Oral Anticoagulant Therapy INR Values:1. Low Intensity Therapy 1.5 - 2.02 . Moderate Intensity Therapy 2.0 - 3.03. High Intensity Therapy(1) 2.5 - 3. 54. High Intensity Therapy(2) 3.0 - 4.05. Panic Value INR > 5.0 [facility] CenterActivated Partial Thromboplast Time 2019-02-22 05:24:00* Test Item Value Reference Range Interpretation Comments Activated Partial Thromboplast Time (test code = 47299-3) 26.1 23.8-35.5 [facility] CenterWhite Blood Hgasb4416-32-39 05:24:00* Test Item Value Reference Range Interpretation Comments White Blood Count (test code = 6690-2) 6.24 4.8-10.8 [facility] CenterRed Blood Leoro0903-84-89 05:24:00* Test Item Value Reference Range Interpretation Comments Red Blood Count (test code = 789-8) 4.42 3.6-5.1 [facility] CenterHemoglobin2019-07-10 05:24:00* Test Item Value Reference Range Interpretation Comments Hemoglobin (test code = 66155-2) 12.9 12.0-16.0 [facility] CenterHematocrit2019-07-10 05:24:00* Test Item Value Reference Range Interpretation Comments Hematocrit (test code = 4544-3) 39.2 34.2-44.1 [facility] CenterMean Corpuscular Xyeucl1357-53-45 05:24:00* Test Item Value Reference Range Interpretation Comments Mean Corpuscular Volume (test code = 787-2) 88.7 81-99 [facility] CenterMean Corpuscular Dhipljxixh7884-61-43 05:24:00* Test Item Value Reference Range Interpretation Comments Mean Corpuscular Hemoglobin (test code = 785-6) 29.2 28-32 [facility] CenterMean Corpuscular Hemoglobin Concent 2019-02-22 05:24:00* Test Item Value Reference Range Interpretation Comments Mean Corpuscular Hemoglobin Concent (test code = 786-4) 32.9 31-35 [facility] CenterRed Cell Distribution Fvkow2719-56-38 05:24:00* Test Item Value Reference Range Interpretation Comments Red Cell Distribution Width (test code = 14410-4) 13.8 11.7 -14.4 [facility] CenterPlatelet Sgina8500-35-52 05:24:00* Test Item Value Reference Range Interpretation Comments Platelet Count (test code = 777-3) 202 140-360 [facility] CenterNeutrophils (%) (Auto)2019-02-22 05:24:00 * Test Item Value Reference Range Interpretation Comments Neutrophils (%) (Auto) (test code = 63928-0) 47.3 38.7-80.0 [facility] CenterLymphocytes (%) (Auto)2019-02-22 05:24:00 * Test Item Value Reference Range Interpretation Comments Lymphocytes (%) (Auto) (test code = 736-9) 40.9 18.0-39.1 H [facility] CenterMonocytes (%) (Auto)2019-02-22 05:24:00* Test Item Value Reference Range Interpretation Comments Monocytes (%) (Auto) (test code = 5905-5) 7.2 4.4-11.3 [facility] CenterEosinophils (%) (Auto)2019-02-22 05:24:00 * Test Item Value Reference Range Interpretation Comments Eosinophils (%) (Auto) (test code = 713-8) 3.8 0.0-6.0 [facility] CenterBasophils (%) (Auto)2019-02-22 05:24:00* Test Item Value Reference Range Interpretation Comments Basophils (%) (Auto) (test code = 706-2) 0.5 0.0-1.0 [facility] CenterIM GRANULOCYTES %2019-02-22 05:24:00* Test Item Value Reference Range Interpretation Comments IM GRANULOCYTES % (test code = IM GRANULOCYTES %) 0.3 0.0- 1.0 [facility] CenterNeutrophils # (Auto)2019-02-22 05:24:00* Test Item Value Reference Range Interpretation Comments Neutrophils # (Auto) (test code = 751-8) 3.0 2.1-6.9 [facility] CenterLymphocytes # (Auto)2019-02-22 05:24:00* Test Item Value Reference Range Interpretation Comments Lymphocytes # (Auto) (test code = 77330-2) 2.6 1.0-3.2 [facility] CenterMonocytes # (Auto)2019-02-22 05:24:00* Test Item Value Reference Range Interpretation Comments Monocytes # (Auto) (test code = 742-7) 0.5 0.2-0.8 [facility] CenterEosinophils # (Auto)2019-02-22 05:24:00* Test Item Value Reference Range Interpretation Comments Eosinophils # (Auto) (test code = 711-2) 0.2 0.0-0.4 [facility] CenterBasophils # (Auto)2019-02-22 05:24:00* Test Item Value Reference Range Interpretation Comments Basophils # (Auto) (test code = 704-7) 0.0 0.0-0.1 [facility] CenterAbsolute Immature Granulocyte (auto 2019-02-22 05:24:00* Test Item Value Reference Range Interpretation Comments Absolute Immature Granulocyte (auto (jesus t code = Absolute Immature Granulocyte (auto) 0.02 0-0.1 [facility] CenterProthrombin Zzjy7096-72-31 05:24:00* Test Item Value Reference Range Interpretation Comments Prothrombin Time (test code = 5902-2) 12.9 11.9-14.5 [facility] CenterProthromb Time International Ratio 2019-02-22 05:24:00* Test Item Value Reference Range Interpretation Comments Prothromb Time International Ratio (test code = 6301-6) 0.92 Oral Anticoagulant Therapy INR Values:1. Low Intensity Therapy 1.5 - 2.02 . Moderate Intensity Therapy 2.0 - 3.03. High Intensity Therapy(1) 2.5 - 3. 54. High Intensity Therapy(2) 3.0 - 4.05. Panic Value INR > 5.0 [facility] CenterActivated Partial Thromboplast Time 2019-02-22 05:24:00* Test Item Value Reference Range Interpretation Comments Activated Partial Thromboplast Time (test code = 34726-0) 26.1 23.8-35.5 [facility] CenterProthrombnj Ugqk5423-20-30 05:24:00* Test Item Value Reference Range Interpretation Comments Prothrombin Time (test code = 5902-2) 12.9 11.9-14.5 [facility] CenterProthromb Time International Ratio 2019-02-22 05:24:00* Test Item Value Reference Range Interpretation Comments Prothromb Time International Ratio (test code = 6301-6) 0.92 Oral Anticoagulant Therapy INR Values:1. Low Intensity Therapy 1.5 - 2.02 . Moderate Intensity Therapy 2.0 - 3.03. High Intensity Therapy(1) 2.5 - 3. 54. High Intensity Therapy(2) 3.0 - 4.05. Panic Value INR > 5.0 [facility] CenterActivated Partial Thromboplast Time 2019-02-22 05:24:00* Test Item Value Reference Range Interpretation Comments Activated Partial Thromboplast Time (test code = 25456-5) 26.1 23.8-35.5 [facility] CenterProthrombin Qxuk9722-60-89 05:24:00* Test Item Value Reference Range Interpretation Comments Prothrombin Time (test code = 5902-2) 12.9 11.9-14.5 [facility] CenterProthromb Time International Ratio 2019-02-22 05:24:00* Test Item Value Reference Range Interpretation Comments Prothromb Time International Ratio (test code = 6301-6) 0.92 Oral Anticoagulant Therapy INR Values:1. Low Intensity Therapy 1.5 - 2.02 . Moderate Intensity Therapy 2.0 - 3.03. High Intensity Therapy(1) 2.5 - 3. 54. High Intensity Therapy(2) 3.0 - 4.05. Panic Value INR > 5.0 [facility] CenterActivated Partial Thromboplast Time 2019-02-22 05:24:00* Test Item Value Reference Range Interpretation Comments Activated Partial Thromboplast Time (test code = 97368-1) 26.1 23.8-35.5 [facility] HEAD/BRAIN W/O [id number] 08:04:00 Name: SASHA POPE [facility] : 1965 Age/S: 54 / F [address] [facility] Unit #: [id number] Loc: [place] [address] Phys: Bo Meneses MD Acct: [id number] Dis Date: Status: REG ER PHONE #: [phone] Exam Date: 02/08/2019 08 FAX #: [phone] Reason: headache EXAMS: CPT CODE: [id number] CT HEAD/BRAIN W/O CONT 21934 HISTORY: headache TECHNIQUE: Noncontrast 2.5 mm axial [...] RT(R)(CT) CTDI: DLP: Trnscb Date/Time: 02/08/2019 (0804) ElizabethLDP1 Orig Print D/T: S: 02/08/2019 (0807) PAGE 1 Signed Report URINALYSIS [id number] 08:00:00* Test Item Value Reference Range Interpretation [...] FEW #/LPF FEW Urine Source? Clean CatchURINALYSIS WGVPYWSF1668-44-59 07:59:00* Test Item Value Reference Range Interpretation [...] HPF NONE Urine Source? Clean CatchBASIC METABOLIC TOZTE9031-90-81 07:43:00* Test Item Value Reference Range Interpretation [...] CA) 9.0 mg/dL 8.5-10.1 N HEPATIC FUNCTION [id number] 07:43:00* Test Item Value Reference Range Interpretation [...] reference range due to change in reagent. KGGGEJ7409-61-43 07:43:00* Test Item Value Reference Range Interpretation Comments LIPASE (test code = LIP) 102 U/L 73.0-393.0 N BASIC METABOLIC [id number] 07:36:00* Test Item Value Reference Range Interpretation [...] code = CA) mg/dL 8.5-10.1 HEPATIC FUNCTION [id number] 07:36:00* Test Item Value Reference Range Interpretation [...] TOTAL (test code = ALKP) IUnit/L 45-117 WSOKHI4967-06-21 07:36:00* Test Item Value Reference Range Interpretation Comments LIPASE (test code = LIP) U/L 73.0-393.0 CBC W/O QPFW7405-05-47 07:13:00* Test Item Value Reference Range Interpretation [...] 6.7-11.0 N - CT ABD PELVIS W/O [id number] 06:42:00 Name: SASHA POPE [facility] : 1965 Age/S: 54 / F [address] [facility] Unit #: [id number] Loc: [place] [address] Phys: Saurabh Muir ACCOUNT SERVICES ASSOCIATE Acct: [id number] Dis Date: Status: REG ER PHONE #: [phone] Exam Date: 02/08/2019618 FAX #: [phone] Reason: LEFT SIDED ABD PAIN EXAMS: CPT CODE: [id number] CT ABD PELVIS W/O CONT 53873 CT abdomen and pelvis without IV contrast. [...] Upper GI: mild gastric wall thickening with que stionable air containing focus within the anterior gastric wall recommend further evaluation with endoscopy to exclude ulcer. Liver: Noncontra st appearance is unremarkable. Gallbladder: Surgically absent Pancre as: Noncontrast appearance is unremarkable. Spleen: Noncontrast appearance is unremarkable. Adrenal glands: Noncontrast appearance is unremarkable. Kidneys: Post surgical changes of the left kidney are noted. Questi onable left renal pelvic induration is nonspecific and may be within tasneem l limits versus car sales representative of an ascending urinary tract [...] Sig marly Report (CONTINUED) Name: SASHA POPE [facility] : 1965 Age/S: 54 / F [address] [facility] Unit #: [id number] Loc: [place] [address] Phys: Saurabh Muir ACCOUNT SERVICES ASSOCIATE Acct: [id number] Dis Date: Status: REG ER PHONE #: [phone] Exam Date: 02/08/2019618 FAX #: [phone] Reason: LEFT SIDED ABD PAIN EXAMS: CPT CODE: [id number] CT ABD PELVIS W/O CONT 89427 <Continued> with endoscopy to exclude ulcer. 2. Questionable left renal pelvic induration is nonspecific and may be within normal limits versus car sales representative of an ascending urinary tract infection. Bladder wall thickening is also seen suggestive of possible cystitis Additional findings as detailed above at 0642 Reported and signed by: Karen Raygoza M.D. CC: Saurabh Muir NP Technologist:JOHN URENA CTDI: DLP: Trnscb Date/Time: 02/08/2019 (0642) [email or web address] Orig Print D/T: S: 02/08/2019 (0645) PAGE [address] ABDOMEN/PELVIS [id number] 13:08:00 [place] [address] Patient Name: SASHA POPE MR #: [id number] : 1965 Age/Sex: 53/F Req #: [id number] Adm Physician: Ordered by: MIKALA EVANS MD Report #: [id number] Location: ER Room/Bed: Procedure: 0419- 0014 CT/CT [...] disease. Signed by: Dr. John Carrasquillo M.D. o ace 12/02/2018 1:17 PM Dictated By: JOHN CARRASQUILLO MD 1317 Transcribed By: GARO on 12/02/18 1317 COPY TO: MIKALA EVANS MD Sodium Sqhzd7410-96-71 11:32:00* Test Item Value Reference Range Interpretation Comments Sodium Level (test code = 2951-2) 140 136-145 [facility] CenterPotassium Oumkm7306-12-18 11:32:00* Test Item Value Reference Range Interpretation Comments Potassium Level (test code = 2823-3) 3.9 3.5-5.1 [facility] CenterChloride Wtupq7567-22-19 11:32:00* Test Item Value Reference Range Interpretation Comments Chloride Level (test code = 2075-0) 106 98-107 [facility] CenterCarbon Dioxide Iqfft7854-64-86 11:32:00* Test Item Value Reference Range Interpretation Comments Carbon Dioxide Level (test code = 2028-9) 24 22-29 [facility] CenterAnion Lqj3044-81-75 11:32:00* Test Item Value Reference Range Interpretation Comments Anion Gap (test code = 79144-0) 13.9 8-16 [facility] CenterBlood Urea Eyoqvsdt7166-95-40 11:32:00* Test Item Value Reference Range Interpretation Comments Blood Urea Nitrogen (test code = 3094-0) 15 7-26 [facility] CenterCreatinine2019-04-19 11:32:00* Test Item Value Reference Range Interpretation Comments Creatinine (test code = 2160-0) 0.78 0.57-1.11 [facility] CenterBUN/Creatinine Udtts5296-26-65 11:32:00* Test Item Value Reference Range Interpretation Comments BUN/Creatinine Ratio (test code = 3097-3) 19 6- [facility] CenterEstimat Glomerular Filtration Rate 2018-12-02 11:32:00* Test Item Value Reference Range Interpretation Comments Estimat Glomerular Filtration Rate (test code = 054605468) > 60 >60 Ranges were taken from the National Kidney Disease Education Program and the [facility] Foundation literature.Reference ranges:60 or greater: Soumua71-58 ( for 3 consecutive months): Chronic kidney disease 15 or less: Kidney failureEnnis [facility] Medical CenterGlucose Jkswy5863-36-67 11:32:00* Test Item Value Reference Range Interpretation Comments Glucose Level (test code = XRR3513) 85 74-118 [facility] CenterCalcium Xtixv4786-52-25 11:32:00* Test Item Value Reference Range Interpretation Comments Calcium Level (test code = 92569-3) 9.7 8.4-10.2 [facility] CenterTotal Vnbiwwkjh5991-36-53 11:32:00* Test Item Value Reference Range Interpretation Comments Total Bilirubin (test code = 1975-2) 0.4 0.2-1.2 [facility] CenterAspartate Amino Transf (AST/SGOT) 2018-12-02 11:32:00* Test Item Value Reference Range Interpretation Comments Aspartate Amino Transf (AST/SGOT) (test code = Aspartate Amino Transf (AST/SGOT)) 48 5-34 H [facility] CenterAlanine Aminotransferase (ALT/SGPT) 2018-12-02 11:32:00* Test Item Value Reference Range Interpretation Comments Alanine Aminotransferase (ALT/SGPT) (test code = 1742-6) 58 0-55 H [facility] CenterTotal Wlrenno7577-87-34 11:32:00* Test Item Value Reference Range Interpretation Comments Total Protein (test code = 2885-2) 8.4 6.5-8.1 H [facility] CenterAlbumin2019-04-19 11:32:00* Test Item Value Reference Range Interpretation Comments Albumin (test code = 1751-7) 3.8 3.5-5.0 [facility] CenterGlobulin2019-04-19 11:32:00* Test Item Value Reference Range Interpretation Comments Globulin (test code = 66118-6) 4.6 2.3-3.5 H [facility] CenterAlbumin/Globulin Qvwfb6778-76-27 11:32:00 * Test Item Value Reference Range Interpretation Comments Albumin/Globulin Ratio (test code = 1759-0) 0.8 0.8-2.0 [facility] CenterAlkaline Mnybdyvuoae6414-23-60 11:32:00* Test Item Value Reference Range Interpretation Comments Alkaline Phosphatase (test code = 6768-6) 100 40-150 [facility] CenterCreatine Nnblly3810-63-63 11:32:00* Test Item Value Reference Range Interpretation Comments Creatine Kinase (test code = 2157-6) 110 29-168 [facility] CenterCreatine Kinase KS6050-47-23 11:32:00* Test Item Value Reference Range Interpretation Comments Creatine Kinase MB (test code = 06525-7) 1.60 0-5.0 [facility] CenterTroponin [id number] 11:32:00* Test Item Value Reference Range Interpretation Comments Troponin I (test code = XEX5365) < 0.001 0-0.300 [facility] CenterLipase2019-04-19 11:32:00* Test Item Value Reference Range Interpretation Comments Lipase (test code = 3040-3) [facility] CenterLipase2019-04-19 11:32:00* Test Item Value Reference Range Interpretation Comments Lipase (test code = 3040-3) [facility] CenterLipase2019-04-19 11:32:00* Test Item Value Reference Range Interpretation Comments Lipase (test code = 3040-3) [facility] CenterLipase2019-04-19 11:32:00* Test Item Value Reference Range Interpretation Comments Lipase (test code = 3040-3) [facility] CenterUrine [id number] 11:21:00* Test Item Value Reference Range Interpretation Comments Urine WBC (test code = 5821-4) NONE 0-5 [facility] CenterUrine [id number] 11:21:00* Test Item Value Reference Range Interpretation Comments Urine RBC (test code = 10110-7) NONE 0-5 [facility] CenterUrine Qrkivqwy6415-18-24 11:21:00* Test Item Value Reference Range Interpretation Comments Urine Bacteria (test code = 87517-1) NONE NONE [facility] CenterUrine Epithelial Ajvyh5621-08-83 11:21:00 * Test Item Value Reference Range Interpretation Comments Urine Epithelial Cells (test code = 12740-5) FEW NONE [facility] CenterUrine NXS8795 11:21:00* Test Item Value Reference Range Interpretation Comments Urine WBC (test code = 5821-4) NONE 0-5 [facility] CenterUrine [id number] 11:21:00* Test Item Value Reference Range Interpretation Comments Urine RBC (test code = 40375-7) NONE 0-5 [facility] CenterUrine Nalhdpew8739-16-31 11:21:00* Test Item Value Reference Range Interpretation Comments Urine Bacteria (test code = 76759-0) NONE NONE [facility] CenterUrine Epithelial Jcmji6745-56-35 11:21:00 * Test Item Value Reference Range Interpretation Comments Urine Epithelial Cells (test code = 00546-3) FEW NONE [facility] CenterUrine BWI5431-98-04 11:21:00* Test Item Value Reference Range Interpretation Comments Urine WBC (test code = 5821-4) NONE 0-5 [facility] CenterUrine [id number] 11:21:00* Test Item Value Reference Range Interpretation Comments Urine RBC (test code = 50641-3) NONE 0-5 [facility] CenterUrine Sujjfhjl3693-20-18 11:21:00* Test Item Value Reference Range Interpretation Comments Urine Bacteria (test code = 37614-1) NONE NONE [facility] CenterUrine Epithelial Xrsdw9869-24-96 11:21:00 * Test Item Value Reference Range Interpretation Comments Urine Epithelial Cells (test code = 08202-9) FEW NONE [facility] CenterUrine EMB2496-35-64 11:21:00* Test Item Value Reference Range Interpretation Comments Urine WBC (test code = 5821-4) NONE 0-5 [facility] CenterUrine DJX0844-48-93 11:21:00* Test Item Value Reference Range Interpretation Comments Urine RBC (test code = 80216-1) NONE 0-5 [facility] CenterUrine Oorbwfcc8937-86-20 11:21:00* Test Item Value Reference Range Interpretation Comments Urine Bacteria (test code = 80052-9) NONE NONE [facility] CenterUrine Epithelial Qgnrm1509-02-45 11:21:00 * Test Item Value Reference Range Interpretation Comments Urine Epithelial Cells (test code = 96660-9) FEW NONE [facility] CenterWhite Blood Sukbz1519-84-03 11:20:00* Test Item Value Reference Range Interpretation Comments White Blood Count (test code = 6690-2) 6.00 4.8-10.8 [facility] CenterRed Blood Btpbx7739-92-53 11:20:00* Test Item Value Reference Range Interpretation Comments Red Blood Count (test code = 789-8) 4.31 3.6-5.1 [facility] CenterHemoglobin2019-04-19 11:20:00* Test Item Value Reference Range Interpretation Comments Hemoglobin (test code = 89767-2) 12.4 12.0-16.0 [facility] CenterHematocrit2019-04-19 11:20:00* Test Item Value Reference Range Interpretation Comments Hematocrit (test code = 4544-3) 38.2 34.2-44.1 [facility] CenterMean Corpuscular Jllpbo2818-85-53 11:20:00* Test Item Value Reference Range Interpretation Comments Mean Corpuscular Volume (test code = 787-2) 88.6 81-99 [facility] CenterMean Corpuscular Nbsyiiuomd8381-98-92 11:20:00* Test Item Value Reference Range Interpretation Comments Mean Corpuscular Hemoglobin (test code = 785-6) 28.8 28-32 [facility] CenterMean Corpuscular Hemoglobin Concent 2018-12-02 11:20:00* Test Item Value Reference Range Interpretation Comments Mean Corpuscular Hemoglobin Concent (test code = 786-4) 32.5 31-35 [facility] CenterRed Cell Distribution Ffghd9629-03-78 11:20:00* Test Item Value Reference Range Interpretation Comments Red Cell Distribution Width (test code = 22810-7) 13.4 11.7 -14.4 [facility] CenterPlatelet Hpamr4467-01-59 11:20:00* Test Item Value Reference Range Interpretation Comments Platelet Count (test code = 777-3) 219 140-360 [facility] CenterNeutrophils (%) (Auto)2018-12-02 11:20:00 * Test Item Value Reference Range Interpretation Comments Neutrophils (%) (Auto) (test code = 25416-9) 49.7 38.7-80.0 [facility] CenterLymphocytes (%) (Auto)2018-12-02 11:20:00 * Test Item Value Reference Range Interpretation Comments Lymphocytes (%) (Auto) (test code = 736-9) 39.3 18.0-39.1 H [facility] CenterMonocytes (%) (Auto)2018-12-02 11:20:00* Test Item Value Reference Range Interpretation Comments Monocytes (%) (Auto) (test code = 5905-5) 5.5 4.4-11.3 [facility] CenterEosinophils (%) (Auto)2018-12-02 11:20:00 * Test Item Value Reference Range Interpretation Comments Eosinophils (%) (Auto) (test code = 713-8) 4.7 0.0-6.0 [facility] CenterBasophils (%) (Auto)2018-12-02 11:20:00* Test Item Value Reference Range Interpretation Comments Basophils (%) (Auto) (test code = 706-2) 0.5 0.0-1.0 [facility] CenterIM GRANULOCYTES %2018-12-02 11:20:00* Test Item Value Reference Range Interpretation Comments IM GRANULOCYTES % (test code = IM GRANULOCYTES %) 0.3 0.0- 1.0 [facility] CenterNeutrophils # (Auto)2018-12-02 11:20:00* Test Item Value Reference Range Interpretation Comments Neutrophils # (Auto) (test code = 751-8) 3.0 2.1-6.9 [facility] CenterLymphocytes # (Auto)2018-12-02 11:20:00* Test Item Value Reference Range Interpretation Comments Lymphocytes # (Auto) (test code = 32339-8) 2.4 1.0-3.2 [facility] CenterMonocytes # (Auto)2018-12-02 11:20:00* Test Item Value Reference Range Interpretation Comments Monocytes # (Auto) (test code = 742-7) 0.3 0.2-0.8 [facility] CenterEosinophils # (Auto)2018-12-02 11:20:00* Test Item Value Reference Range Interpretation Comments Eosinophils # (Auto) (test code = 711-2) 0.3 0.0-0.4 [facility] CenterBasophils # (Auto)2018-12-02 11:20:00* Test Item Value Reference Range Interpretation Comments Basophils # (Auto) (test code = 704-7) 0.0 0.0-0.1 [facility] CenterAbsolute Immature Granulocyte (auto 2018-12-02 11:20:00* Test Item Value Reference Range Interpretation Comments Absolute Immature Granulocyte (auto (jesus t code = Absolute Immature Granulocyte (auto) 0.02 0-0.1 [facility] CenterUrine Zmshu6911-89-11 11:08:00* Test Item Value Reference Range Interpretation Comments Urine Color (test code = 5778-6) YELLOW YELLOW [facility] CenterUrine Xiofsmo6833-55-91 11:08:00* Test Item Value Reference Range Interpretation Comments Urine Clarity (test code = 39559-1) SL CLOUDY CLEAR [facility] CenterUrine Specific Nukfybx1656-71-75 11:08:00 * Test Item Value Reference Range Interpretation Comments Urine Specific [place] (test code = 5811-5) 1.005 1.010-1.02 5 L [facility] CenterUrine [id number] 11:08:00* Test Item Value Reference Range Interpretation Comments Urine pH (test code = 32040-1) 6 5-7 [facility] CenterUrine Leukocyte Yfrbglml2692-87-21 11:08:00* Test Item Value Reference Range Interpretation Comments Urine Leukocyte Esterase (test code = 5799-2) NEGATIVE NEGATIVE [facility] CenterUrine Aohkbix9052-55-20 11:08:00* Test Item Value Reference Range Interpretation Comments Urine Nitrite (test code = 63423-8) NEGATIVE NEGATIVE [facility] CenterUrine Gzbvhyr7621-96-03 11:08:00* Test Item Value Reference Range Interpretation Comments Urine Protein (test code = 5804-0) 3+ NEGATIVE H [facility] CenterUrine Glucose (UA)2018-12-02 11:08:00* Test Item Value Reference Range Interpretation Comments Urine Glucose (UA) (test code = 2349-9) NEGATIVE NEGATIVE [facility] [facility] Gdlyxfp6050-61-82 11:08:00* Test Item Value Reference Range Interpretation Comments Urine Ketones (test code = 30647-0) NEGATIVE NEGATIVE [facility] Icrwnfrnrdca2871-55-47 11:08:00* Test Item Value Reference Range Interpretation Comments Urine Urobilinogen (test code = 72163-9) 0.2 0.2-1 [facility] Ddapkwyro8890-66-47 11:08:00* Test Item Value Reference Range Interpretation Comments Urine Bilirubin (test code = 1978-6) NEGATIVE NEGATIVE [facility] Ixtbh8470-12-01 11:08:00* Test Item Value Reference Range Interpretation Comments Urine Blood (test code = 67564-0) NEGATIVE NEGATIVE [facility] Duyxd0099-12-04 11:08:00* Test Item Value Reference Range Interpretation Comments Urine Color (test code = 5778-6) YELLOW YELLOW [facility] Qvgucwz0347-28-97 11:08:00* Test Item Value Reference Range Interpretation Comments Urine Clarity (test code = 13896-7) SL CLOUDY CLEAR [facility] Specific Pesrrjz6934-08-91 11:08:00 * Test Item Value Reference Range Interpretation Comments Urine Specific [place] (test code = 5811-5) 1.005 1.010-1.02 5 L [facility] fA7387-54-56 11:08:00* Test Item Value Reference Range Interpretation Comments Urine pH (test code = 97307-8) 6 5-7 [facility] Leukocyte Iryivzqa9829-79-05 11:08:00* Test Item Value Reference Range Interpretation Comments Urine Leukocyte Esterase (test code = 5799-2) NEGATIVE NEGATIVE [facility] Vuhdtej4246-81-94 11:08:00* Test Item Value Reference Range Interpretation Comments Urine Nitrite (test code = 80528-0) NEGATIVE NEGATIVE [facility] Bfnleuu7654-99-81 11:08:00* Test Item Value Reference Range Interpretation Comments Urine Protein (test code = 5804-0) 3+ NEGATIVE H [facility] Glucose (UA)2018-12-02 11:08:00* Test Item Value Reference Range Interpretation Comments Urine Glucose (UA) (test code = 2349-9) NEGATIVE NEGATIVE [facility] Zuiawlw4338-99-48 11:08:00* Test Item Value Reference Range Interpretation Comments Urine Ketones (test code = 72590-8) NEGATIVE NEGATIVE [facility] Bmtxxfwhhrzf4937-55-14 11:08:00* Test Item Value Reference Range Interpretation Comments Urine Urobilinogen (test code = 46384-3) 0.2 0.2-1 [facility] Rmhhvlszo4335-00-19 11:08:00* Test Item Value Reference Range Interpretation Comments Urine Bilirubin (test code = 1978-6) NEGATIVE NEGATIVE [facility] Mgdwi4231-51-95 11:08:00* Test Item Value Reference Range Interpretation Comments Urine Blood (test code = 88206-0) NEGATIVE NEGATIVE [facility] Wjuma2801-04-45 11:08:00* Test Item Value Reference Range Interpretation Comments Urine Color (test code = 5778-6) YELLOW YELLOW [facility] Dmbqhno9915-81-16 11:08:00* Test Item Value Reference Range Interpretation Comments Urine Clarity (test code = 12380-3) SL CLOUDY CLEAR [facility] Specific Tvmdzyd1593-41-71 11:08:00 * Test Item Value Reference Range Interpretation Comments Urine Specific [place] (test code = 5811-5) 1.005 1.010-1.02 5 L [facility] vS5857-63-93 11:08:00* Test Item Value Reference Range Interpretation Comments Urine pH (test code = 57677-5) 6 5-7 [facility] Leukocyte Bnzrnsqg3863-91-07 11:08:00* Test Item Value Reference Range Interpretation Comments Urine Leukocyte Esterase (test code = 5799-2) NEGATIVE NEGATIVE [facility] Twvvfyf8761-52-50 11:08:00* Test Item Value Reference Range Interpretation Comments Urine Nitrite (test code = 19445-7) NEGATIVE NEGATIVE [facility] Nfeswnc1518-20-82 11:08:00* Test Item Value Reference Range Interpretation Comments Urine Protein (test code = 5804-0) 3+ NEGATIVE H [facility] Glucose (UA)2018-12-02 11:08:00* Test Item Value Reference Range Interpretation Comments Urine Glucose (UA) (test code = 2349-9) NEGATIVE NEGATIVE [facility] Hmmnhau7226-68-20 11:08:00* Test Item Value Reference Range Interpretation Comments Urine Ketones (test code = 95194-9) NEGATIVE NEGATIVE [facility] Opomncwrqoew3869-82-50 11:08:00* Test Item Value Reference Range Interpretation Comments Urine Urobilinogen (test code = 44339-1) 0.2 0.2-1 [facility] Anbmaupol4066-64-77 11:08:00* Test Item Value Reference Range Interpretation Comments Urine Bilirubin (test code = 1978-6) NEGATIVE NEGATIVE [facility] Mxrjx2395-72-21 11:08:00* Test Item Value Reference Range Interpretation Comments Urine Blood (test code = 25251-6) NEGATIVE NEGATIVE [facility] Rhsga9527-46-32 11:08:00* Test Item Value Reference Range Interpretation Comments Urine Color (test code = 5778-6) YELLOW YELLOW [facility] Yjphdcw3120-69-23 11:08:00* Test Item Value Reference Range Interpretation Comments Urine Clarity (test code = 39235-7) SL CLOUDY CLEAR [facility] Specific Sdnxtxs6792-75-53 11:08:00 * Test Item Value Reference Range Interpretation Comments Urine Specific [place] (test code = 5811-5) 1.005 1.010-1.02 5 L [facility] tY1104-05-76 11:08:00* Test Item Value Reference Range Interpretation Comments Urine pH (test code = 16436-8) 6 5-7 [facility] Leukocyte Dcioyjth8019-32-59 11:08:00* Test Item Value Reference Range Interpretation Comments Urine Leukocyte Esterase (test code = 5799-2) NEGATIVE NEGATIVE [facility] Ejzsuiv9787-81-95 11:08:00* Test Item Value Reference Range Interpretation Comments Urine Nitrite (test code = 14810-5) NEGATIVE NEGATIVE [facility] Ykcxmiw1191-27-03 11:08:00* Test Item Value Reference Range Interpretation Comments Urine Protein (test code = 5804-0) 3+ NEGATIVE H [facility] Glucose (UA)2018-12-02 11:08:00* Test Item Value Reference Range Interpretation Comments Urine Glucose (UA) (test code = 2349-9) NEGATIVE NEGATIVE [facility] Oqlggfz8590-81-52 11:08:00* Test Item Value Reference Range Interpretation Comments Urine Ketones (test code = 65277-3) NEGATIVE NEGATIVE [facility] Kzoezcxodllh2448-79-52 11:08:00* Test Item Value Reference Range Interpretation Comments Urine Urobilinogen (test code = 29898-7) 0.2 0.2-1 [facility] Amxetfxms1017-77-91 11:08:00* Test Item Value Reference Range Interpretation Comments Urine Bilirubin (test code = 1978-6) NEGATIVE NEGATIVE [facility] Phldt8042-81-38 11:08:00* Test Item Value Reference Range Interpretation Comments Urine Blood (test code = 57597-6) NEGATIVE NEGATIVE [facility] CenterABDOM[facility]VIEW (KUB)2018-12-02 10:28:00 [facility] [address] [address] Patient Name: SASHA POPE MR #: [id number] : Age/Sex: 53/F Req #: [id number] Adm Physician: Ordered by: MIKALA EVANS MD Report #: [id number] Location: ER Room/Bed: Procedure: 0419- 0014 DX/ABDOMEN-1VIEW (KUB) Exam Date: 12/02/18 Exam Time: 1015 REPORT STATUS: Signed Exam: Abdominal film Clinical History: Abdominal pain Comparison : Abdominal radiograph 10/21/2018, CT abdomen and pelvis with contrast 10/20/2018 DISCUSSION: The bowel gas pattern shows no dilated, air-filled loops of bow el. Gas and fecal material is noted throughout the large bowel and rectum. R adiopaque suture material along the ascending colon is again noted. No mass effect or organomegaly. Pelvic phleboliths. Surgical clips project over the r ight upper quadrant of the abdomen compatible with prior cholecystectomy. Left paravertebral surgical clips correlate to prior partial nephrectomy as seen o n comparison CT. Regional skeletal structures are intact. [...] Blood (test code = 2335-8) NEGATIVE NEGATIVE [facility] Occult Dhwik6728-73-85 07:35:00* Test Item Value Reference Range Interpretation Comments Stool Occult Blood (test code = 2335-8) NEGATIVE NEGATIVE [facility] Occult Jxnpa4942-17-16 07:35:00* Test Item Value Reference Range Interpretation Comments Stool Occult Blood (test code = 2335-8) NEGATIVE NEGATIVE [facility] Occult Dvpcd6450-79-76 07:35:00* Test Item Value Reference Range Interpretation Comments Stool Occult Blood (test code = 2335-8) NEGATIVE NEGATIVE [facility] Occult Nbbcz0871-90-82 07:35:00* Test Item Value Reference Range Interpretation Comments Stool Occult Blood (test code = 2335-8) NEGATIVE NEGATIVE [facility] Southodium Exonk8570-23-21 05:29:00* Test Item Value Reference Range Interpretation Comments Sodium Level (test code = 2951-2) 140 136-145 [facility] CenterPotassium Afvte9040-35-97 05:29:00* Test Item Value Reference Range Interpretation Comments Potassium Level (test code = 2823-3) 4.4 3.5-5.1 [facility] CenterChloride Scljq7613-86-28 05:29:00* Test Item Value Reference Range Interpretation Comments Chloride Level (test code = 2075-0) 105 98-107 [facility] CenterCarbon Dioxide Qygvr9929-43-41 05:29:00* Test Item Value Reference Range Interpretation Comments Carbon Dioxide Level (test code = 2028-9) 27 22-29 [facility] CenterAnion Vnt9452-52-14 05:29:00* Test Item Value Reference Range Interpretation Comments Anion Gap (test code = 10742-5) 12.4 8-16 [facility] CenterBlood Urea Baqngyop3540-42-63 05:29:00* Test Item Value Reference Range Interpretation Comments Blood Urea Nitrogen (test code = 3094-0) 10 7-26 [facility] CenterCreatinine2019-03-10 05:29:00* Test Item Value Reference Range Interpretation Comments Creatinine (test code = 2160-0) 0.81 0.57-1.11 [facility] CenterBUN/Creatinine Cbweq2076-59-40 05:29:00* Test Item Value Reference Range Interpretation Comments BUN/Creatinine Ratio (test code = 3097-3) 12 6-25 [facility] CenterEstimat Glomerular Filtration Rate 2018-10-23 05:29:00* Test Item Value Reference Range Interpretation Comments Estimat Glomerular Filtration Rate (test code = 034556030) > 60 >60 Ranges were taken from the National Kidney Disease Education Program and the [facility] access hospital Kidney Foundation literature.Reference ranges:60 or greater: Grtzkx95-01 ( for 3 consecutive months): Chronic kidney disease 15 or less: Kidney failureEnnis Regional Medical CenterGlucose Zhpym1019-75-76 05:29:00* Test Item Value Reference Range Interpretation Comments Glucose Level (test code = TGO5250) 97 74-118 [facility] CenterCalcium Cjrir2475-61-09 05:29:00* Test Item Value Reference Range Interpretation Comments Calcium Level (test code = 35001-7) 8.9 8.4-10.2 [facility] CenterTotal Epqssgrsd4770-01-48 05:29:00* Test Item Value Reference Range Interpretation Comments Total Bilirubin (test code = 1975-2) 0.3 0.2-1.2 [facility] CenterAspartate Amino Transf (AST/SGOT) 2018-10-23 05:29:00* Test Item Value Reference Range Interpretation Comments Aspartate Amino Transf (AST/SGOT) (test code = Aspartate Amino Transf (AST/SGOT)) 35 5-34 H [facility] CenterAlanine Aminotransferase (ALT/SGPT) 2018-10-23 05:29:00* Test Item Value Reference Range Interpretation Comments Alanine Aminotransferase (ALT/SGPT) (test code = 1742-6) 54 0-55 [facility] CenterTotal Pqlvpwl5782-99-62 05:29:00* Test Item Value Reference Range Interpretation Comments Total Protein (test code = 2885-2) 7.0 6.5-8.1 [facility] CenterAlbumin2019-03-10 05:29:00* Test Item Value Reference Range Interpretation Comments Albumin (test code = 1751-7) 3.4 3.5-5.0 L [facility] CenterGlobulin2019-03-10 05:29:00* Test Item Value Reference Range Interpretation Comments Globulin (test code = 37166-9) 3.6 2.3-3.5 H [facility] CenterAlbumin/Globulin Xjdoc7558-78-92 05:29:00 * Test Item Value Reference Range Interpretation Comments Albumin/Globulin Ratio (test code = 1759-0) 0.9 0.8-2.0 [facility] CenterAlkaline Sedxlewhgpq9701-18-88 05:29:00* Test Item Value Reference Range Interpretation Comments Alkaline Phosphatase (test code = 6768-6) 74 40-150 [facility] CenterWhite Blood Ktwbw8038-04-88 05:14:00* Test Item Value Reference Range Interpretation Comments White Blood Count (test code = 6690-2) 6.11 4.8-10.8 [facility] CenterRed Blood Shamv5134-14-15 05:14:00* Test Item Value Reference Range Interpretation Comments Red Blood Count (test code = 789-8) 3.87 3.6-5.1 [facility] CenterHemoglobin2019-03-10 05:14:00* Test Item Value Reference Range Interpretation Comments Hemoglobin (test code = 91837-7) 11.2 12.0-16.0 L [facility] CenterHematocrit2019-03-10 05:14:00* Test Item Value Reference Range Interpretation Comments Hematocrit (test code = 4544-3) 34.4 34.2-44.1 [facility] CenterMean Corpuscular Qvuuag4152-54-33 05:14:00* Test Item Value Reference Range Interpretation Comments Mean Corpuscular Volume (test code = 787-2) 88.9 81-99 [facility] CenterMean Corpuscular Woxbhxosjc8867-56-74 05:14:00* Test Item Value Reference Range Interpretation Comments Mean Corpuscular Hemoglobin (test code = 785-6) 28.9 28-32 [facility] CenterMean Corpuscular Hemoglobin Concent 2018-10-23 05:14:00* Test Item Value Reference Range Interpretation Comments Mean Corpuscular Hemoglobin Concent (test code = 786-4) 32.6 31-35 [facility] CenterRed Cell Distribution Ttzph5718-84-76 05:14:00* Test Item Value Reference Range Interpretation Comments Red Cell Distribution Width (test code = 52747-8) 13.2 11.7 -14.4 [facility] CenterPlatelet Hfugq6023-17-03 05:14:00* Test Item Value Reference Range Interpretation Comments Platelet Count (test code = 777-3) 174 140-360 [facility] CenterNeutrophils (%) (Auto)2018-10-23 05:14:00 * Test Item Value Reference Range Interpretation Comments Neutrophils (%) (Auto) (test code = 58321-1) 50.2 38.7-80.0 [facility] CenterLymphocytes (%) (Auto)2018-10-23 05:14:00 * Test Item Value Reference Range Interpretation Comments Lymphocytes (%) (Auto) (test code = 736-9) 36.8 18.0-39.1 [facility] CenterMonocytes (%) (Auto)2018-10-23 05:14:00* Test Item Value Reference Range Interpretation Comments Monocytes (%) (Auto) (test code = 5905-5) 7.5 4.4-11.3 [facility] CenterEosinophils (%) (Auto)2018-10-23 05:14:00 * Test Item Value Reference Range Interpretation Comments Eosinophils (%) (Auto) (test code = 713-8) 4.9 0.0-6.0 [facility] CenterBasophils (%) (Auto)2018-10-23 05:14:00* Test Item Value Reference Range Interpretation Comments Basophils (%) (Auto) (test code = 706-2) 0.3 0.0-1.0 [facility] CenterIM GRANULOCYTES %2018-10-23 05:14:00* Test Item Value Reference Range Interpretation Comments IM GRANULOCYTES % (test code = IM GRANULOCYTES %) 0.3 0.0- 1.0 [facility] CenterNeutrophils # (Auto)2018-10-23 05:14:00* Test Item Value Reference Range Interpretation Comments Neutrophils # (Auto) (test code = 751-8) 3.1 2.1-6.9 [facility] CenterLymphocytes # (Auto)2018-10-23 05:14:00* Test Item Value Reference Range Interpretation Comments Lymphocytes # (Auto) (test code = 80371-0) 2.3 1.0-3.2 [facility] CenterMonocytes # (Auto)2018-10-23 05:14:00* Test Item Value Reference Range Interpretation Comments Monocytes # (Auto) (test code = 742-7) 0.5 0.2-0.8 [facility] CenterEosinophils # (Auto)2018-10-23 05:14:00* Test Item Value Reference Range Interpretation Comments Eosinophils # (Auto) (test code = 711-2) 0.3 0.0-0.4 [facility] CenterBasophils # (Auto)2018-10-23 05:14:00* Test Item Value Reference Range Interpretation Comments Basophils # (Auto) (test code = 704-7) 0.0 0.0-0.1 [facility] CenterAbsolute Immature Granulocyte (auto 2018-10-23 05:14:00* Test Item Value Reference Range Interpretation Comments Absolute Immature Granulocyte (auto (jesus t code = Absolute Immature Granulocyte (auto) 0.02 0-0.1 [facility] Lactoferrin (LAB)2018-10-22 22:28:00* Test Item Value Reference Range Interpretation Comments Stool Lactoferrin (LAB) (test code = 29304-8) NEGATIVE NEGATIVE Testing on stool aspirate specimens is outside credit collector claims since specime n type not validated on this assay.[facility] Lactoferrin (LAB)2018-10-22 22:28:00* Test Item Value Reference Range Interpretation Comments Stool Lactoferrin (LAB) (test code = 94656-0) NEGATIVE NEGATIVE Testing on stool aspirate specimens is outside credit collector claims since specime n type not validated on this assay.[facility] Lactoferrin (LAB)2018-10-22 22:28:00* Test Item Value Reference Range Interpretation Comments Stool Lactoferrin (LAB) (test code = 43734-6) NEGATIVE NEGATIVE Testing on stool aspirate specimens is outside credit collector claims since specime n type not validated on this assay.[facility] Lactoferrin (LAB)2018-10-22 22:28:00* Test Item Value Reference Range Interpretation Comments Stool Lactoferrin (LAB) (test code = 05176-0) NEGATIVE NEGATIVE Testing on stool aspirate specimens is outside credit collector claims since specime n type not validated on this assay.[facility] Lactoferrin (LAB)2018-10-22 22:28:00* Test Item Value Reference Range Interpretation Comments Stool Lactoferrin (LAB) (test code = 35079-8) NEGATIVE NEGATIVE Testing on stool aspirate specimens is outside credit collector claims since specime n type not validated on this assay.[facility] CenterMRI MRCP GSJ1393-04-82 11:16:[address] [address] Patient Name: SASHA POPE MR #: [id number] : 1965 Age/Sex: 53/F Req #: [id number] Adm Physician: CIRO HERNANDEZ MD Ordered by: NATTY COOK MD Report #: [id number] Location: MED/SURG2 Room/Bed: [facility] Procedure: 0308- 0001 MRI/MRI MRCP WWO Exam [...] ABDOMEN ACUTE SERIES W/PA CXR 2018-10-21 07:14:00 [address] [address] Patient Name: SASHA POPE MR #: [id number] : 1965 Age/Sex: 53/F Req #: [id number] Adm Physician: CIRO HERNANDEZ MD Ordered by: DEISY DE LA FUENTE MD Report #: [id number] Location: MED/SURG2 Room/Bed: [facility] Procedure: DX/ABDOMEN ACUTE SERIES W/PA CXR Exam [...] right and left upper quadrants. Sutures in th e right lower quadrant. Nonobstructive bowel gas pattern. IMPRESSION: No acute thoracic abnormality. Nonobstructive bowel gas pattern. Signed b y: DR. Lopez Henson MD on 10/21/2018 7:18 AM Dictated By: LOPEZ Parker 7 Transcribed By: GARO on 10/21/18717 COPY TO: DEISY DE LA FUENTE MD CT ABDOMEN/PELVIS W7109-94-67 14:05:00 [address] [address] Patient Name: SASHA POPE MR #: [id number] : 1965 Age/Sex: 53/F Req #: [id number] Adm Physician: CIRO HERNANDEZ MD Ordered by: CIRO HERNANDEZ MD Report #: [id number] Location: MED/SURG Room/Bed: [facility] Procedure: 0307-[address]/CT ABDOMEN/PELVIS W Exam Date: 10/20/18 Exam Time: 1150 REPORT STATUS: Signed EXAM: CT Abdomen and Pelvis WITH contrast INDICATION: Right sided abdominal pain. COMPARISON: CT abdomen and pelvis 10/20/2018 at 0048 hours TECHNIQUE : Abdomen and pelvis were scanned utilizing a multidetector helical scanner fr om the lung base to the pubic symphysis with administration of IV contrast. C oronal and sagittal reformations were obtained. Routine protocol was performed . Dose modulation, iterative reconstruction and/or weight based adjustment of the mA/kV was utilized to reduce the radiation dose to as low as reasonabl y achievable. IV CONTRAST: 100 cc of Isovue-370 [...] Dictated By: PRERNA NUÑEZ DO 1423 Transcribed By : GARO on 10/20/18 1423 COPY TO: CIRO HERNANDEZ MD Lipase 2018-10-20 06:05:00* Test Item Value Reference Range Interpretation Comments Lipase (test code = 3040-3) 21 8-78 [facility] CenterLactic Acid Xxyve9087-11-99 05:59:00* Test Item Value Reference Range Interpretation Comments Lactic Acid Level (test code = Lactic Acid Level) 11.9 4.5- 19.8 [facility] CenterLactic Acid Pjptw2932-96-29 05:59:00* Test Item Value Reference Range Interpretation Comments Lactic Acid Level (test code = Lactic Acid Level) 11.9 4.5- 19.8 [facility] CenterLactic Acid Rkkgv8866-55-57 05:59:00* Test Item Value Reference Range Interpretation Comments Lactic Acid Level (test code = Lactic Acid Level) 11.9 4.5- 19.8 [facility] CenterLactic Acid Sdnyz9564-28-53 05:59:00* Test Item Value Reference Range Interpretation Comments Lactic Acid Level (test code = Lactic Acid Level) 11.9 4.5- 19.8 [facility] Vdhht6515-32-86 05:59:00* Test Item Value Reference Range Interpretation Comments Lactic Acid Level (test code = Lactic Acid Level) 11.9 4.5- 19.8 [facility] CenterCT A[facility]/PEL WO CXJMIZPZ-QHDF3226-13-07 01:23:00 [address] [address] Patient Name: SASHA POPE MR #: [id number] : 1965 Age/Sex: 53/F Req #: [id number] Adm Physician: Ordered by: CARLEEN ALBERT MD Report #: [id number] Location: [facility] Room/Bed: Procedure: 030 7 HOPD/CT ABD/PEL WO CONTRAST-HOPD Exam Date: 10/20/18 Exam Time: 0045 REPORT STAT US: Signed EXAM: CT Abdomen and Pelvis WITHOUT contrast INDICATION: Right upper quadrant pain. [id number] COMPARISON: CT abdomen and pelvis 05/03/2018 TECHNIQUE: Abdomen and pelvis were scanned utilizing a multidetecto r helical scanner from the lung base to [...] on 10/20/2018 1:31 AM Dictated By: LOPEZ anand Signed By: LOPEZ HENSON MD on 10/20/18130 Transcribed By: GARO on 0 10/20/18130 COPY TO: CARLEEN ALBERT MD Stool Calprotectin 2018-07-05 13:59:00* Test Item Value Reference Range Interpretation Comments Stool Calprotectin (test code = 98853-9) <16 0-120 Concentration Interpretation Follow-Up<16 - 50 ug/g Normal None>50 -120 ug/g Borderline Re-evaluate in 4-6 weeks >120 ug/g Abnormal Repeat as clinically indicatedPerformed at: [address] [id number] Director: Murali Mitchell MD, Phone: [phone] [place] [address] Ooeipkybbcun5892-54-36 13:59:00* Test Item Value Reference Range Interpretation Comments Stool Calprotectin (test code = 84859-9) <16 0-120 Concentration Interpretation Follow-Up<16 - 50 ug/g Normal None>50 -120 ug/g Borderline Re-evaluate in 4-6 weeks >120 ug/g Abnormal Repeat as clinically indicatedPerformed at: [address] [id number] Director: Murali Mitchell MD, Phone: [phone] [place] [address] Wiadfluinaup5751-05-19 13:59:00* Test Item Value Reference Range Interpretation Comments Stool Calprotectin (test code = 54713-1) <16 0-120 Concentration Interpretation Follow-Up<16 - 50 ug/g Normal None>50 -120 ug/g Borderline Re-evaluate in 4-6 weeks >120 ug/g Abnormal Repeat as clinically indicatedPerformed at: [address] [id number] Director: Murali Mitchell MD, Phone: [phone] [facility] Phrvnzohbonm1399-38-72 13:59:00* Test Item Value Reference Range Interpretation Comments Stool Calprotectin (test code = 34803-5) <16 0-120 Concentration Interpretation Follow-Up<16 - 50 ug/g Normal None>50 -120 ug/g Borderline Re-evaluate in 4-6 weeks >120 ug/g Abnormal Repeat as clinically indicatedPerformed at: [address] [id number] Director: Murali Mitchell MD, Phone: [phone] Health [facility] Sukcugehvght4362-50-67 13:59:00* Test Item Value Reference Range Interpretation Comments Stool Calprotectin (test code = 99108-6) <16 0-120 Concentration Interpretation Follow-Up<16 - 50 ug/g Normal None>50 -120 ug/g Borderline Re-evaluate in 4-6 weeks >120 ug/g Abnormal Repeat as clinically indicatedPerformed at: BN - [facility] [address], [place] [address]Cgj Director: Murali Mitchell MD, Phone: [phone] [facility], [facility]PLE[facility] MIN 0IL6179-71-96 13:44:00 [facility] [address] [address] Patient Name: SASHA POPE MR #: [id number] : 1965 Age/Sex: 53/F Req #: [id number] Adm Physician: Ordered by: CIRO HERNANDEZ MD Report #: [id number] Location: [facility] Room/Bed: Procedure: [id number] DX/SP LUMBAR, COMPLETE MIN 4VW Exam Date: [...] 1:55 PM Dictated By: ISHMAEL KATHLEEN MD 1350 Transcribed By: GARO on 07/04/18 135 COPY TO: CIRO HERNANDEZ MD SACRUM [id number] 13:44:00 [address] [place] [address] Patient Name: SASHA POPE MR #: [id number] : 1965 Age/Sex: 53/F Req #: [id number] Adm Physician: Ordered by: CIRO HERNANDEZ MD Report #: [id number] Location: [facility] Room/Bed: Procedure: [id number] DX/SA ROSENDO X-RAY Exam Date: 07/04/18 Exam [...] 1:55 PM Dictated By: ISHMAEL KATHLEEN MD 0770 COPY TO: CIRO HERNANDEZ MD Clostridium Difficile Toxin A & [id number] 13:03:00* Test Item Value Reference Range Interpretation Comments Clostridium Difficile Toxin A & B (test code = 177968634) NEGATIVE NEGATIVE Testing on stool aspirate specimens is outside credit collector claims since specime n type not validated on this assay.[facility] Clostridium Difficile Toxin A & S9931-53-75 13:03:00* Test Item Value Reference Range Interpretation Comments Clostridium Difficile Toxin A & B (test code = 391266918) NEGATIVE NEGATIVE Testing on stool aspirate specimens is outside credit collector claims since specime n type not validated on this assay.[facility] Clostridium Difficile Toxin A & D5765-81-22 13:03:00* Test Item Value Reference Range Interpretation Comments Clostridium Difficile Toxin A & B (test code = 381948974) NEGATIVE NEGATIVE Testing on stool aspirate specimens is outside credit collector claims since specime n type not validated on this assay.[facility] Clostridium Difficile Toxin A & E5545-36-71 13:03:00* Test Item Value Reference Range Interpretation Comments Clostridium Difficile Toxin A & B (test code = 245895348) NEGATIVE NEGATIVE Testing on stool aspirate specimens is outside credit collector claims since specime n type not validated on this assay.[facility] Clostridium Difficile Toxin A & K1417-99-39 13:03:00* Test Item Value Reference Range Interpretation Comments Clostridium Difficile Toxin A & B (test code = 076120926) NEGATIVE NEGATIVE Testing on stool aspirate specimens is outside credit collector claims since specime n type not validated on this assay.[facility] Lact[facility]err[facility]LAB)2018-06-29 14:35:00* Test Item Value Reference Range Interpretation Comments Stool Lactoferrin (LAB) (test code = 14902-5) NEGATIVE NEGATIVE Testing on stool aspirate specimens is outside credit collector claims since specime n type not validated on this assay.[facility]odium Ifezm7640-15-68 05:20:00* Test Item Value Reference Range Interpretation Comments Sodium Level (test code = 2951-2) 142 136-145 [facility] CenterPotassium Zipse1245-78-29 05:20:00* Test Item Value Reference Range Interpretation Comments Potassium Level (test code = 2823-3) 3.8 3.5-5.1 [facility] CenterChloride Hqzje4513-44-05 05:20:00* Test Item Value Reference Range Interpretation Comments Chloride Level (test code = 2075-0) 109 98-107 H [facility] CenterCarbon Dioxide Dvikq4693-39-04 05:20:00* Test Item Value Reference Range Interpretation Comments Carbon Dioxide Level (test code = 2028-9) 23 22-29 [facility] CenterAnion Jps5862-52-30 05:20:00* Test Item Value Reference Range Interpretation Comments Anion Gap (test code = 22638-5) 13.8 8-16 [facility] CenterBlood Urea Hhjweflc0381-16-04 05:20:00* Test Item Value Reference Range Interpretation Comments Blood Urea Nitrogen (test code = 3094-0) 5 7-26 L [facility] CenterCreatinine2018-10-20 05:20:00* Test Item Value Reference Range Interpretation Comments Creatinine (test code = 2160-0) 0.79 0.57-1.11 [facility] CenterBUN/Creatinine Yqgrf2882-53-28 05:20:00* Test Item Value Reference Range Interpretation Comments BUN/Creatinine Ratio (test code = 3097-3) 6 6-25 [facility] CenterEstimat Glomerular Filtration Rate 2018-06-04 05:20:00* Test Item Value Reference Range Interpretation Comments Estimat Glomerular Filtration Rate (test code = 601795102) > 60 >60 Ranges were taken from the National Kidney Disease Education Program and the [facility] literature.Reference ranges:60 or greater: Xzwemh04-24 ( for 3 consecutive months): Chronic kidney disease 15 or less: Kidney failureEnnis Regional Medical CenterGlucose Virhi2090-24-31 05:20:00* Test Item Value Reference Range Interpretation Comments Glucose Level (test code = IMC5356) 101 74-118 [facility] CenterCalcium Oycix1444-30-85 05:20:00* Test Item Value Reference Range Interpretation Comments Calcium Level (test code = 19267-7) 9.1 8.4-10.2 [facility] CenterTotal Mnszjqgjn5779-35-92 05:20:00* Test Item Value Reference Range Interpretation Comments Total Bilirubin (test code = 1975-2) 0.3 0.2-1.2 [facility] CenterAspartate Amino Transf (AST/SGOT) 2018-06-04 05:20:00* Test Item Value Reference Range Interpretation Comments Aspartate Amino Transf (AST/SGOT) (test code = Aspartate Amino Transf (AST/SGOT)) 36 5-34 H [facility] CenterAlanine Aminotransferase (ALT/SGPT) 2018-06-04 05:20:00* Test Item Value Reference Range Interpretation Comments Alanine Aminotransferase (ALT/SGPT) (test code = 1742-6) 41 0-55 [facility] CenterTotal Verczfa9279-56-84 05:20:00* Test Item Value Reference Range Interpretation Comments Total Protein (test code = 2885-2) 6.5 6.5-8.1 [facility] CenterAlbumin2018-10-20 05:20:00* Test Item Value Reference Range Interpretation Comments Albumin (test code = 1751-7) 3.1 3.5-5.0 L [facility] CenterGlobulin2018-10-20 05:20:00* Test Item Value Reference Range Interpretation Comments Globulin (test code = 26965-9) 3.4 2.3-3.5 [facility] CenterAlbumin/Globulin Dzuoj5980-29-82 05:20:00 * Test Item Value Reference Range Interpretation Comments Albumin/Globulin Ratio (test code = 1759-0) 0.9 0.8-2.0 [facility] CenterAlkaline Rmqycviorin5224-76-96 05:20:00* Test Item Value Reference Range Interpretation Comments Alkaline Phosphatase (test code = 6768-6) 66 40-150 [facility] CenterWhite Blood Kwjjn3193-94-03 05:17:00* Test Item Value Reference Range Interpretation Comments White Blood Count (test code = 6690-2) 5.28 4.8-10.8 [facility] CenterRed Blood Tuute1328-93-78 05:17:00* Test Item Value Reference Range Interpretation Comments Red Blood Count (test code = 789-8) 3.82 3.6-5.1 [facility] CenterHemoglobin2018-10-20 05:17:00* Test Item Value Reference Range Interpretation Comments Hemoglobin (test code = 37997-5) 10.6 12.0-16.0 L [facility] CenterHematocrit2018-10-20 05:17:00* Test Item Value Reference Range Interpretation Comments Hematocrit (test code = 4544-3) 32.9 34.2-44.1 L [facility] CenterMean Corpuscular Njlomw1048-46-06 05:17:00* Test Item Value Reference Range Interpretation Comments Mean Corpuscular Volume (test code = 787-2) 86.1 81-99 [facility] CenterMean Corpuscular Kvtcpxfdmk8500-40-85 05:17:00* Test Item Value Reference Range Interpretation Comments Mean Corpuscular Hemoglobin (test code = 785-6) 27.7 28-32 L [facility] CenterMean Corpuscular Hemoglobin Concent 2018-06-04 05:17:00* Test Item Value Reference Range Interpretation Comments Mean Corpuscular Hemoglobin Concent (test code = 786-4) 32.2 31-35 [facility] CenterRed Cell Distribution Mfqsk3767-15-01 05:17:00* Test Item Value Reference Range Interpretation Comments Red Cell Distribution Width (test code = 99042-0) 15.5 11.7 -14.4 H [facility] CenterPlatelet Mqvtp6986-31-63 05:17:00* Test Item Value Reference Range Interpretation Comments Platelet Count (test code = 777-3) 169 140-360 [facility] CenterNeutrophils (%) (Auto)2018-06-04 05:17:00 * Test Item Value Reference Range Interpretation Comments Neutrophils (%) (Auto) (test code = 70292-4) 53.2 38.7-80.0 [facility] CenterLymphocytes (%) (Auto)2018-06-04 05:17:00 * Test Item Value Reference Range Interpretation Comments Lymphocytes (%) (Auto) (test code = 736-9) 35.6 18.0-39.1 [facility] CenterMonocytes (%) (Auto)2018-06-04 05:17:00* Test Item Value Reference Range Interpretation Comments Monocytes (%) (Auto) (test code = 5905-5) 7.6 4.4-11.3 [facility] CenterEosinophils (%) (Auto)2018-06-04 05:17:00 * Test Item Value Reference Range Interpretation Comments Eosinophils (%) (Auto) (test code = 713-8) 3.2 0.0-6.0 [facility] CenterBasophils (%) (Auto)2018-06-04 05:17:00* Test Item Value Reference Range Interpretation Comments Basophils (%) (Auto) (test code = 706-2) 0.4 0.0-1.0 [facility] CenterIM GRANULOCYTES %2018-06-04 05:17:00* Test Item Value Reference Range Interpretation Comments IM GRANULOCYTES % (test code = IM GRANULOCYTES %) 0.0 0.0- 1.0 [facility] CenterNeutrophils # (Auto)2018-06-04 05:17:00* Test Item Value Reference Range Interpretation Comments Neutrophils # (Auto) (test code = 751-8) 2.8 2.1-6.9 [facility] CenterLymphocytes # (Auto)2018-06-04 05:17:00* Test Item Value Reference Range Interpretation Comments Lymphocytes # (Auto) (test code = 20141-6) 1.9 1.0-3.2 [facility] CenterMonocytes # (Auto)2018-06-04 05:17:00* Test Item Value Reference Range Interpretation Comments Monocytes # (Auto) (test code = 742-7) 0.4 0.2-0.8 [facility] CenterEosinophils # (Auto)2018-06-04 05:17:00* Test Item Value Reference Range Interpretation Comments Eosinophils # (Auto) (test code = 711-2) 0.2 0.0-0.4 [facility] CenterBasophils # (Auto)2018-06-04 05:17:00* Test Item Value Reference Range Interpretation Comments Basophils # (Auto) (test code = 704-7) 0.0 0.0-0.1 [facility] CenterAbsolute Immature Granulocyte (auto 2018-06-04 05:17:00* Test Item Value Reference Range Interpretation Comments Absolute Immature Granulocyte (auto (jesus t code = Absolute Immature Granulocyte (auto) 0 0-0.1 [facility] Southtool Occult Uibry1441-37-25 12:23:00* Test Item Value Reference Range Interpretation Comments Stool Occult Blood (test code = 2335-8) NEGATIVE NEGATIVE [facility] CenterUS ABDOMEN AWIYRGQT0596-91-10 09:29:00 [address] [address] Patient Name: SASHA POPE MR #: [id number] : 1965 Age/Sex: 53/F Req #: [id number] Adm Physician: CIRO HERNANDEZ MD Ordered by: CIRO HERNANDEZ MD Report #: [id number] Location: [facility] Room/Bed: [address] [address] Procedure: [id number] US/U S ABDOMEN COMPLETE Exam Date: Exam Time: REPORT STATUS: Signed PROCEDURE: ABDOMI NAL ULTRASOUND COMPARISON: CT abdomen and pelvis with contrast 10/02/2017, CT abdomen pelvis without contrast 05/03/2018. INDICATIONS: ABDOMINAL PAIN TECHNIQUE: Garrett-scale and color sonographic images were obtained of the abdomen in transverse and sagittal planes. FINDINGS: Liver: 14.4 cm in length in right midclavicular line. Normal parenchymal echogenicity. N o masses. Main portal vein: 0.6 cm in [...] HERNANDEZ MD ABDOMEN COMP INCL UPR or WHTSF3522-88-31 03:05:00 [address] [address] Patient Name: SASHA POPE MR #: [id number] : 1965 Age/Sex: 53/F Req #: [id number] Adm Physician: CIRO HERNANDEZ MD Ordered by: CIRO HERNANDEZ MD Report #: [id number] Location: [facility] Room/Bed: [address] [address] Procedure: [id number] DX/A BDOMEN COMP INCL UPR or DECUB [...] PY TO: CIRO HERNANDEZ MD Erythrocyte Sedimentation Ybcz9594-04-13 21:02:00* Test Item Value Reference Range Interpretation Comments Erythrocyte Sedimentation Rate (test code = 4537-7) 41 0- 20 H [facility] CenterErythrocyte Sedimentation Yajw2884-26-16 21:02:00* Test Item Value Reference Range Interpretation Comments Erythrocyte Sedimentation Rate (test code = 4537-7) 41 0- 20 H [facility] CenterErythrocyte Sedimentation Fzsc7080-85-68 21:02:00* Test Item Value Reference Range Interpretation Comments Erythrocyte Sedimentation Rate (test code = 4537-7) 41 0- 20 H [facility] CenterErythrocyte Sedimentation Dsez9538-92-40 21:02:00* Test Item Value Reference Range Interpretation Comments Erythrocyte Sedimentation Rate (test code = 4537-7) 41 0- 20 H [facility] CenterAmylase Vehuo6944-13-03 20:51:00* Test Item Value Reference Range Interpretation Comments Amylase Level (test code = 1798-8) 63 -125 [facility] CenterLipase2018-10-18 20:51:00* Test Item Value Reference Range Interpretation Comments Lipase (test code = 3040-3) 16 78 [facility] CenterAmylase Wfcin5244-56-45 20:51:00* Test Item Value Reference Range Interpretation Comments Amylase Level (test code = 1798-8) 63 25-125 [facility] CenterAmylase Qtxcg6189-06-72 20:51:00* Test Item Value Reference Range Interpretation Comments Amylase Level (test code = 1798-8) 63 25-125 [facility] CenterAmylase Dneda1590-66-09 20:51:00* Test Item Value Reference Range Interpretation Comments Amylase Level (test code = 1798-8) 63 25-125 [facility] CenterUrine CFE3360-79-63 20:33:00* Test Item Value Reference Range Interpretation Comments Urine WBC (test code = 5821-4) NONE 0-5 [facility] CenterUrine HUV9923-48-91 20:33:00* Test Item Value Reference Range Interpretation Comments Urine RBC (test code = 57651-0) NONE 0-5 [facility] CenterUrine Wcrynrkl8109-84-12 20:33:00* Test Item Value Reference Range Interpretation Comments Urine Bacteria (test code = 33357-1) FEW NONE [facility] CenterUrine Epithelial Htdbm7406-18-90 20:33:00 * Test Item Value Reference Range Interpretation Comments Urine Epithelial Cells (test code = 10614-4) MODERATE NONE [facility] CenterUrine RZU5616-99-99 20:33:00* Test Item Value Reference Range Interpretation Comments Urine WBC (test code = 5821-4) NONE 0-5 [facility] CenterUrine BEK1830-22-01 20:33:00* Test Item Value Reference Range Interpretation Comments Urine RBC (test code = 18108-6) NONE 0-5 [facility] CenterUrine Stpszvkl7239-61-84 20:33:00* Test Item Value Reference Range Interpretation Comments Urine Bacteria (test code = 43398-5) FEW NONE [facility] CenterUrine Epithelial Svbal1480-12-68 20:33:00 * Test Item Value Reference Range Interpretation Comments Urine Epithelial Cells (test code = 53610-9) MODERATE NONE [facility] CenterUrine Dsgfp5167-62-65 20:23:00* Test Item Value Reference Range Interpretation Comments Urine Color (test code = 5778-6) YELLOW YELLOW [facility] CenterUrine Uzpufui9895-92-60 20:23:00* Test Item Value Reference Range Interpretation Comments Urine Clarity (test code = 61253-3) SL CLOUDY CLEAR [facility] CenterUrine Specific Mzeiams4428-73-82 20:23:00 * Test Item Value Reference Range Interpretation Comments Urine Specific [place] (test code = 5811-5) 1.005 1.010-1.02 5 L [facility] CenterUrine nL1038-90-88 20:23:00* Test Item Value Reference Range Interpretation Comments Urine pH (test code = 92684-7) 6 5-7 [facility] CenterUrine Leukocyte Ouyyolhy3662-20-79 20:23:00* Test Item Value Reference Range Interpretation Comments Urine Leukocyte Esterase (test code = 5799-2) NEGATIVE NEGATIVE [facility] CenterUrine Unfwunb9135-60-77 20:23:00* Test Item Value Reference Range Interpretation Comments Urine Nitrite (test code = 79158-9) NEGATIVE NEGATIVE [facility] CenterUrine Rntxpel4151-05-85 20:23:00* Test Item Value Reference Range Interpretation Comments Urine Protein (test code = 5804-0) NEGATIVE NEGATIVE [facility] CenterUrine Glucose (UA)2018-06-02 20:23:00* Test Item Value Reference Range Interpretation Comments Urine Glucose (UA) (test code = 2349-9) NEGATIVE NEGATIVE [facility] CenterUrine Fpzkfnv3091-31-45 20:23:00* Test Item Value Reference Range Interpretation Comments Urine Ketones (test code = 32422-8) NEGATIVE NEGATIVE [facility] CenterUrine Kvjmgnsxlrze6602-97-66 20:23:00* Test Item Value Reference Range Interpretation Comments Urine Urobilinogen (test code = 50113-1) 0.2 0.2-1 [facility] CenterUrine Rpaqaigjy5728-75-66 20:23:00* Test Item Value Reference Range Interpretation Comments Urine Bilirubin (test code = 1978-6) NEGATIVE NEGATIVE [facility] CenterUrine Mjyka5659-67-80 20:23:00* Test Item Value Reference Range Interpretation Comments Urine Blood (test code = 93597-4) TRACE NEGATIVE H [facility] CenterUrine Akyst0345-76-44 20:23:00* Test Item Value Reference Range Interpretation Comments Urine Color (test code = 5778-6) YELLOW YELLOW [facility] CenterUrine Eumzhug9181-45-84 20:23:00* Test Item Value Reference Range Interpretation Comments Urine Clarity (test code = 26944-5) SL CLOUDY CLEAR [facility] Specific Cazjcxf4993-22-18 20:23:00 * Test Item Value Reference Range Interpretation Comments Urine Specific [place] (test code = 5811-5) 1.005 1.010-1.02 5 L [facility] CenterUrine yS1645-75-18 20:23:00* Test Item Value Reference Range Interpretation Comments Urine pH (test code = 58746-0) 6 5-7 [facility] CenterU[facility] Leukocyte Extepyfp9171-90-48 20:23:00* Test Item Value Reference Range Interpretation Comments Urine Leukocyte Esterase (test code = 5799-2) NEGATIVE NEGATIVE [facility] CenterUrine Rpuxtiq3135-57-50 20:23:00* Test Item Value Reference Range Interpretation Comments Urine Nitrite (test code = 77591-8) NEGATIVE NEGATIVE [facility] CenterUrine Loubtrx4026-96-51 20:23:00* Test Item Value Reference Range Interpretation Comments Urine Protein (test code = 5804-0) NEGATIVE NEGATIVE [facility] CenterUrine Glucose (UA)2018-06-02 20:23:00* Test Item Value Reference Range Interpretation Comments Urine Glucose (UA) (test code = 2349-9) NEGATIVE NEGATIVE [facility] CenterUrine Oubggfl3465-43-61 20:23:00* Test Item Value Reference Range Interpretation Comments Urine Ketones (test code = 57282-9) NEGATIVE NEGATIVE [facility] CenterUrine Pwgqxavsskhx0651-46-56 20:23:00* Test Item Value Reference Range Interpretation Comments Urine Urobilinogen (test code = 75253-3) 0.2 0.2-1 [facility] CenterUrine Mrigzjvvp2575-17-06 20:23:00* Test Item Value Reference Range Interpretation Comments Urine Bilirubin (test code = 1978-6) NEGATIVE NEGATIVE [facility] CenterUrine Yuoym9130-06-48 20:23:00* Test Item Value Reference Range Interpretation Comments Urine Blood (test code = 51474-2) TRACE NEGATIVE H [facility] CenterCHEST SINGLE (NOT PORTABLE)2018-06-02 19:48:00 [place] [address] Patient Name: SASHA POPE MR #: [id number] : 1965 Age/Sex: 53/F Req #: [id number] Adm Physician: CIRO HERNANDEZ MD Ordered by: CIRO HERNANDEZ MD Report #: [id number] Location: [facility] Room/Bed: [place] [address] Procedure: [id number] DX/C HEST SINGLE (NOT PORTABLE) Exam Date: [...] CIRO HERNANDEZ MD NM Bone Imaging Whole Jekx3975-99-97 15:00:45Patient: SASHA POPE Date/Time05/27/2018 13:00 CDTReason for ExamC18.0 R10.84ReportLocation G84OAITK-EXNX BONE SCANHistory: R10.84 .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 Final Dictated by: MD Vega Eniola FDictated DT/TM: 05/27/2018 2:58 pmSigned by: MD Vega Eniola FSig marly (Electronic Signature): 05/27/2018 3:00 pmCT ABD/PEL WO CONTRAST-HOPD 2018-05-03 21:04:00 [place] [address] Patient Name: SASHA POPE MR #: [id number] : 1965 Age/Sex: 53/F Req #: [id number] Adm Physician: Ordered by: DARREN PERSAUD MD Report #: [id number] Location: [facility] Room/Bed: Procedure: HOPD/CT ABD/PEL WO CONTRAS T-HOPD Exam Date: 05/03/18 Exam Time: 0 REP ORT STATUS: Signed EXAM: CT ABDOMEN AND PELVIS WITHOUT IV CONTRAST INDICATI ON: Right lower quadrant pain, history of kidney cancer COMPARISON: CT of e abdomen and pelvis with IV contrast October [...] WINN MD CT Abdomen and Pelvis w/ Akdrpims3704-01-19 22:23:12 Patient: SASHA POPE am Date/Time03/03/2018 22:08 CDTReason for ExamFeverReportCT SCAN OF THE ABDOMEN AND PELVIS WITH CONTRASTLocation: [id number] HISTORY: Abdominal pain and fev er prior cholecystectomy. Kidney cancer surgery February 17, 2018.TECHNIQUE: Helical CT of the abdomen and pelvis was performed after the administration of 100 cc of Isovue 300 without complication. Exam was performed on an up-to-date helical CT scanner. Automatic exposure control and reduction dose techniques were utili Plethorad. Coronal and sagittal images were reconstructed.DLP: 505 [...] Final Dict ated by: MD Rivera Maria VDictated DT/TM: 03/03/2018 10:12 pmSigned by: Shay peoples MD, Maria VSigned (Electronic Signature): 03/03/2018 10:23 pmXR Chest 1 View Gweolkz7134-12-61 20:28:10Patient: SASHA POPE Date/Time03/03/2018 20:24 CDTReason for ExamFeverReportCHEST X-RAY 1 VIEWLocation: [id number] HISTORY: FeverTechnique:A single frontal view of the chest was obtained. Comparison made to prior study February 18, 2018Findings:Mild degenerative spurring is present at the right shoulder. The aortic, hilar, and cardiac outlines are normal. The lungs are clear of infiltrates or nodules. No pneumothorax. No pleural effusions. Small medical device sales overlies upper half of the cardiac silhouette.IMPRESSION:No acute findings. Clear lungs. Final Dictated by: MD Rivera Maria VDictated DT/TM: 03/03/2018 8:27 pmSigned by: MD Rivera Maria VSigned (Electronic Signature): 03/03/2018 8:28 pmXR Chest 1 View Ibaefsc2056-37-12 08:07:13Patient: SASHA POPE Date/Time02/18/2018 05:41 CDTReason for Examchest tube removal;Other (please specify)PrymzgW38VJYK: XR Chest 1 View FrontalHISTORY: Other (please specify);chest tube removalCOMPARISON: 02/17/2018FINDINGS:Cardiac recording device again noted.Moderate elevation of the right hemidiaphragm.Patchy perihilar airspace opacities. No pleural effusion or pneumothorax. The cardiac silhouette is within normal limits. No acute osseous abnormalities.IMPRESSION:Worsening atelectasis and/or pulmonary edema. Final Dictated by: MD Cortés VivekDictdinorah DT/TM: 02/18/2018 8:06 amSigned by: MD Cortés VivekSigned (Electronic Signature): 02/18/2018 8:07 amXR Chest 2 Ylvec8901-56-74 15:13:02Patient: SASHA POPE Date/Time02/17/2018 10:16 CDTReason for ExamChest tube placementReportDictation location L19Oubkw 2 views.HISTORY: Chest tube placementCOMMENT: Compared to [...] Signature): 02/17/2018 3:13 pmXR Chest 1 View Enrolzj9915-41-46 07:48:53Patient: SASHA POPE Date/Time02/17/2018 05:53 CDTReason for ExamLine wfhritrzwAlreztA60RRIS: XR Chest 1 View FrontalHISTORY: Line placementCOMPARISON: [...] in both lungs. Final Dictated by: MD Cortés VivekDictdinorah DT/TM: 02/17/2018 7:46 amSigned by: MD Cortés VivekSigned (Electronic Signature): 02/17/2018 7:48 amXR Chest 1 View Urnzuqq8581-11-67 09:03:54Patient: SASHA POPE Date/Time02/16/2018 08:39 CDTReason for ExamPneumothoraxReportChest, one viewLOCATION CODE: R 16HISTORY: DyspneaCOMPARISON: 02/15/2018FINDINGS:The cardiac silhouette is normal in size. Mild bilateral mixed alveolar and interstitial lung opacities. No large pleural effusion or pneumothorax. The bones are intact. Right upper quadrant surgical clips are noted.IMPRESSION:Mild bilateral mixed alveolar and interstitial lung opacities. Final Dictated by: MD Umana Roman PDictdinorah DT/TM: 02/16/2018 9:03 amSigned by: MD Umana Roman PSigned (Electron ic Signature): 02/16/2018 9:03 amXR Chest 1 View Drveuxx2265-28-93 14:09:46 Patient: SASHA POPE am Date/Time02/15/2018 13:54 [...] (Electronic Signature): 02/15/2018 2:09 pmXR Chest 2 [id number] 12:23:28Patient: SASHA POPE Date/Time01/31/2018 12:11 CDTReason for [...] (Electronic S ignature): 01/31/2018 12:23 pmCT Biopsy Fmzoy0792-33-60 13:40:17Patient: SASHA POPE Date/Time01/20/2018 11:30 CDTReason for ExamD30.00ReportCT GUIDED CORE NEEDLE B IOPSY OF A LEFT RENAL MASSCLINICAL INDICATION: D30.00OPERATORS: Alan Tee MD SEDATION: Under physician supervision, intravenous Versed and fentanyl were admi nistered for moderate sedation. Pulse oximetry, heart rate, and blood pressure w ere continuously monitored by a dedicated IR trained nurse. The physician spent 30 minutes of continuous flzd-ws-asza sedation time with the patient.TECHNIQUE:T he risks, [...] core needle biopsies were made. The pa thologist/mud jack nozzle worker present on site determined the sample to [...] mass.Location: R16 Final Dictated b y: MD Randal, Alan FDictated DT/TM: 01/20/2018 1:32 pmSigned by: MD Tee Adam FSigned (Electronic Signature): 01/20/2018 1:40 pmSodium Level 2017-10-02 01:14:00* Test Item Value Reference Range Interpretation Comments Sodium Level (test code = 2951-2) 137 136-145 [facility]Potassium Uwuqb4375-58-44 01:14:00* Test Item Value Reference Range Interpretation Comments Potassium Level (test code = 2823-3) 3.6 3.5-5.1 [facility] CenterChloride Gncal0086-25-95 01:14:00* Test Item Value Reference Range Interpretation Comments Chloride Level (test code = 2075-0) 105 98-107 [facility] CenterCarbon Dioxide Dwcwg1627-72-47 01:14:00* Test Item Value Reference Range Interpretation Comments Carbon Dioxide Level (test code = 2028-9) 21 22-29 L [facility] CenterAnion Zmn8585-78-29 01:14:00* Test Item Value Reference Range Interpretation Comments Anion Gap (test code = 45975-9) 14.6 8-16 [facility] CenterBlood Urea Cvhuyzek4770-61-43 01:14:00* Test Item Value Reference Range Interpretation Comments Blood Urea Nitrogen (test code = 3094-0) 18 7-26 [facility] CenterCreatinine2018-02-17 01:14:00* Test Item Value Reference Range Interpretation Comments Creatinine (test code = 2160-0) 0.76 0.57-1.11 [facility] CenterBUN/Creatinine Ltjhz2291-56-18 01:14:00* Test Item Value Reference Range Interpretation Comments BUN/Creatinine Ratio (test code = 3097-3) 24 6-25 [facility] CenterEstimat Glomerular Filtration Rate 2017-10-02 01:14:00* Test Item Value Reference Range Interpretation Comments Estimat Glomerular Filtration Rate (test code = 40840-6) 60- >60 Ranges were taken from the National Kidney Disease Education Program and the [facility] Kid[facility] Foundation literature.Reference ranges:60 or greater: Ryrqth74-84 ( for 3 consecutive months): Chronic kidney disease 15 or less: Kidney failureEnnis [facility] Medical CenterGlucose Oyruy3675-09-35 01:14:00* Test Item Value Reference Range Interpretation Comments Glucose Level (test code = DHI4734) 117 74-118 [facility] CenterCalcium Yvnrw6179-27-28 01:14:00* Test Item Value Reference Range Interpretation Comments Calcium Level (test code = 85320-7) 8.8 8.4-10.2 [facility] CenterTotal Ibjtcbhbb2338-82-47 01:14:00* Test Item Value Reference Range Interpretation Comments Total Bilirubin (test code = 1975-2) -0.3 0.2-1.2 [facility] CenterAspartate Amino Transf (AST/SGOT) 2017-10-02 01:14:00* Test Item Value Reference Range Interpretation Comments Aspartate Amino Transf (AST/SGOT) (test code = Aspartate Amino Transf (AST/SGOT)) 31 5-34 [facility] CenterAlanine Aminotransferase (ALT/SGPT) 2017-10-02 01:14:00* Test Item Value Reference Range Interpretation Comments Alanine Aminotransferase (ALT/SGPT) (test code = 1742-6) 36 0-55 [facility] CenterTotal Cjhzyce8882-19-96 01:14:00* Test Item Value Reference Range Interpretation Comments Total Protein (test code = 2885-2) 7.8 6.5-8.1 [facility] CenterAlbumin2018-02-17 01:14:00* Test Item Value Reference Range Interpretation Comments Albumin (test code = 1751-7) 3.5 3.5-5.0 [facility] CenterGlobulin2018-02-17 01:14:00* Test Item Value Reference Range Interpretation Comments Globulin (test code = 77020-0) 4.3 2.3-3.5 H [facility] CenterAlbumin/Globulin Lbykq0708-30-89 01:14:00 * Test Item Value Reference Range Interpretation Comments Albumin/Globulin Ratio (test code = 1759-0) 0.8 0.8-2.0 [facility] CenterAlkaline Xozltxylyno9270-67-47 01:14:00* Test Item Value Reference Range Interpretation Comments Alkaline Phosphatase (test code = 6768-6) 80 40-150 [facility] CenterAmylase Szoee6933-79-18 01:14:00* Test Item Value Reference Range Interpretation Comments Amylase Level (test code = 1798-8) 113 25-125 [facility] CenterLipase2018-02-17 01:14:00* Test Item Value Reference Range Interpretation Comments Lipase (test code = 3040-3) 31 8-78 [facility]odium Cnuxw0654-96-89 01:14:00* Test Item Value Reference Range Interpretation Comments Sodium Level (test code = 2951-2) 137 136-145 [facility] CenterPotassium Bqcdi6737-64-85 01:14:00* Test Item Value Reference Range Interpretation Comments Potassium Level (test code = 2823-3) 3.6 3.5-5.1 [facility] CenterChloride Qpxkc9471-74-58 01:14:00* Test Item Value Reference Range Interpretation Comments Chloride Level (test code = 2075-0) 105 98-107 [facility] CenterCarbon Dioxide Ziwbk3711-08-72 01:14:00* Test Item Value Reference Range Interpretation Comments Carbon Dioxide Level (test code = 2028-9) 21 22-29 L [facility] CenterAnion Lep8834-65-63 01:14:00* Test Item Value Reference Range Interpretation Comments Anion Gap (test code = 73638-4) 14.6 8-16 [facility] CenterBlood Urea Vxuxczwt8387-81-53 01:14:00* Test Item Value Reference Range Interpretation Comments Blood Urea Nitrogen (test code = 3094-0) 18 7-26 [facility] CenterCreatinine2018-02-17 01:14:00* Test Item Value Reference Range Interpretation Comments Creatinine (test code = 2160-0) 0.76 0.57-1.11 [facility] CenterBUN/Creatinine Ikdxr6113-21-00 01:14:00* Test Item Value Reference Range Interpretation Comments BUN/Creatinine Ratio (test code = 3097-3) 24 6-25 [facility] CenterEstimat Glomerular Filtration Rate 2017-10-02 01:14:00* Test Item Value Reference Range Interpretation Comments Estimat Glomerular Filtration Rate (test code = 987236670) 60- >60 Ranges were taken from the National Kidney Disease Education Program and the [facility] literature.Reference ranges:60 or greater: Yibgku71-25 ( for 3 consecutive months): Chronic kidney disease 15 or less: Kidney failureEnnis Regional Medical CenterGlucose Ahsxm6367-05-18 01:14:00* Test Item Value Reference Range Interpretation Comments Glucose Level (test code = ZMD0076) 117 74-118 [facility] CenterCalcium Ifdog6460-81-07 01:14:00* Test Item Value Reference Range Interpretation Comments Calcium Level (test code = 28462-7) 8.8 8.4-10.2 [facility] CenterTotal Bkzzoqjqb3235-58-91 01:14:00* Test Item Value Reference Range Interpretation Comments Total Bilirubin (test code = 1975-2) -0.3 0.2-1.2 [facility] CenterAspartate Amino Transf (AST/SGOT) 2017-10-02 01:14:00* Test Item Value Reference Range Interpretation Comments Aspartate Amino Transf (AST/SGOT) (test code = Aspartate Amino Transf (AST/SGOT)) 31 5-34 [facility] CenterAlanine Aminotransferase (ALT/SGPT) 2017-10-02 01:14:00* Test Item Value Reference Range Interpretation Comments Alanine Aminotransferase (ALT/SGPT) (test code = 1742-6) 36 0-55 [facility] CenterTotal Wgraquf6628-60-08 01:14:00* Test Item Value Reference Range Interpretation Comments Total Protein (test code = 2885-2) 7.8 6.5-8.1 [facility] CenterAlbumin2018-02-17 01:14:00* Test Item Value Reference Range Interpretation Comments Albumin (test code = 1751-7) 3.5 3.5-5.0 [facility] CenterGlobulin2018-02-17 01:14:00* Test Item Value Reference Range Interpretation Comments Globulin (test code = 26027-1) 4.3 2.3-3.5 H [facility] CenterAlbumin/Globulin Sdaqr8173-23-58 01:14:00 * Test Item Value Reference Range Interpretation Comments Albumin/Globulin Ratio (test code = 1759-0) 0.8 0.8-2.0 [facility] CenterAlkaline Vvcgimcylux5491-60-28 01:14:00* Test Item Value Reference Range Interpretation Comments Alkaline Phosphatase (test code = 6768-6) 80 40-150 [facility] CenterAmylase Nlego0435-43-45 01:14:00* Test Item Value Reference Range Interpretation Comments Amylase Level (test code = 1798-8) 113 25-125 [facility] CenterLipase2018-02-17 01:14:00* Test Item Value Reference Range Interpretation Comments Lipase (test code = 3040-3) 31 8-78 [facility] CenterUrine IUD0659-99-90 00:59:00* Test Item Value Reference Range Interpretation Comments Urine WBC (test code = 5821-4) 0-5 0-5 [facility] CenterUrine FVD3416-34-84 00:59:00* Test Item Value Reference Range Interpretation Comments Urine RBC (test code = 19784-6) 0-5 0-5 [facility] CenterUrine Zzkpvuji2101-97-56 00:59:00* Test Item Value Reference Range Interpretation Comments Urine Bacteria (test code = 64033-6) RARE NONE [facility] CenterUrine Epithelial Oaphv7064-53-12 00:59:00 * Test Item Value Reference Range Interpretation Comments Urine Epithelial Cells (test code = 62562-6) FEW NONE [facility] CenterUrine BDF4521-71-68 00:59:00* Test Item Value Reference Range Interpretation Comments Urine WBC (test code = 5821-4) 0-5 0-5 [facility] CenterUrine ZEC3191-26-32 00:59:00* Test Item Value Reference Range Interpretation Comments Urine RBC (test code = 42466-6) 0-5 0-5 [facility] CenterUrine Skmjlbpb6270-16-67 00:59:00* Test Item Value Reference Range Interpretation Comments Urine Bacteria (test code = 95698-8) RARE NONE [facility] CenterUrine Epithelial Ejehi5868-80-35 00:59:00 * Test Item Value Reference Range Interpretation Comments Urine Epithelial Cells (test code = 21585-0) FEW NONE [facility] CenterUrine Jorgl2151-20-01 00:54:00* Test Item Value Reference Range Interpretation Comments Urine Color (test code = 5778-6) YELLOW YELLOW [facility] CenterUrine Tomvnze1693-29-85 00:54:00* Test Item Value Reference Range Interpretation Comments Urine Clarity (test code = 01961-6) CLEAR CLEAR [facility] CenterUrine Specific Rrakezg1401-88-07 00:54:00 * Test Item Value Reference Range Interpretation Comments Urine Specific [place] (test code = 5811-5) 1.005 1.010-1.02 5 L [facility] CenterUrine rJ4903-40-34 00:54:00* Test Item Value Reference Range Interpretation Comments Urine pH (test code = 22299-2) 6.5 5-7 [facility] CenterUrine Leukocyte Fqckoybf2582-28-70 00:54:00* Test Item Value Reference Range Interpretation Comments Urine Leukocyte Esterase (test code = 5799-2) NEGATIVE NEGATIVE [facility] CenterUrine Qclfqzm3368-30-79 00:54:00* Test Item Value Reference Range Interpretation Comments Urine Nitrite (test code = 11499-3) NEGATIVE NEGATIVE [facility] CenterUrine Zdglqvv3369-08-17 00:54:00* Test Item Value Reference Range Interpretation Comments Urine Protein (test code = 5804-0) NEGATIVE NEGATIVE [facility] Glucose (UA)2017-10-02 00:54:00* Test Item Value Reference Range Interpretation Comments Urine Glucose (UA) (test code = 2349-9) NEGATIVE NEGATIVE [facility] CenterUrine Opqhwfy7140-98-00 00:54:00* Test Item Value Reference Range Interpretation Comments Urine Ketones (test code = 43283-1) NEGATIVE NEGATIVE [facility] Nfbcpugyacgy0575-53-21 00:54:00* Test Item Value Reference Range Interpretation Comments Urine Urobilinogen (test code = 04531-7) 0.2 0.2-1 [facility] Crcwwyhlw0005-41-31 00:54:00* Test Item Value Reference Range Interpretation Comments Urine Bilirubin (test code = 1978-6) NEGATIVE NEGATIVE [facility] Plqnb7035-80-24 00:54:00* Test Item Value Reference Range Interpretation Comments Urine Blood (test code = 44807-2) NEGATIVE NEGATIVE [facility] CenterU[facility] Adwqq5197-40-49 00:54:00* Test Item Value Reference Range Interpretation Comments Urine Color (test code = 5778-6) YELLOW YELLOW [facility] CenterUrine Iwclwop0133-02-34 00:54:00* Test Item Value Reference Range Interpretation Comments Urine Clarity (test code = 82525-9) CLEAR CLEAR [facility] CenterUrine Specific Kuwdlsg6183-07-71 00:54:00 * Test Item Value Reference Range Interpretation Comments Urine Specific [place] (test code = 5811-5) 1.005 1.010-1.02 5 L [facility] CenterUrine bQ9694-94-05 00:54:00* Test Item Value Reference Range Interpretation Comments Urine pH (test code = 93939-8) 6.5 5-7 [facility] CenterUrine Leukocyte Eglbiabg6932-73-02 00:54:00* Test Item Value Reference Range Interpretation Comments Urine Leukocyte Esterase (test code = 5799-2) NEGATIVE NEGATIVE [facility] CenterUrine Rrmtzia8587-25-18 00:54:00* Test Item Value Reference Range Interpretation Comments Urine Nitrite (test code = 99756-4) NEGATIVE NEGATIVE [facility] CenterUrine Hfldxyi6398-18-94 00:54:00* Test Item Value Reference Range Interpretation Comments Urine Protein (test code = 5804-0) NEGATIVE NEGATIVE [facility] CenterUrine Glucose (UA)2017-10-02 00:54:00* Test Item Value Reference Range Interpretation Comments Urine Glucose (UA) (test code = 2349-9) NEGATIVE NEGATIVE [facility] CenterUrine Yfcgjvq8060-79-38 00:54:00* Test Item Value Reference Range Interpretation Comments Urine Ketones (test code = 38760-6) NEGATIVE NEGATIVE [facility] CenterUrine Epecjyytmsdk7773-37-54 00:54:00* Test Item Value Reference Range Interpretation Comments Urine Urobilinogen (test code = 66763-1) 0.2 0.2-1 [facility] CenterUrine Nhlzwpeda3565-65-88 00:54:00* Test Item Value Reference Range Interpretation Comments Urine Bilirubin (test code = 1978-6) NEGATIVE NEGATIVE [facility] CenterUrine Qlzbi4106-81-00 00:54:00* Test Item Value Reference Range Interpretation Comments Urine Blood (test code = 77984-1) NEGATIVE NEGATIVE [facility] CenterWhite Blood Bsyik9641-02-75 00:53:00* Test Item Value Reference Range Interpretation Comments White Blood Count (test code = 6690-2) 8.39 4.8-10.8 [facility] CenterRed Blood Szvey4451-42-04 00:53:00* Test Item Value Reference Range Interpretation Comments Red Blood Count (test code = 789-8) 4.23 3.6-5.1 [facility] CenterHemoglobin2018-02-17 00:53:00* Test Item Value Reference Range Interpretation Comments Hemoglobin (test code = 42125-4) 9.8 12.0-16.0 L [facility] CenterHematocrit2018-02-17 00:53:00* Test Item Value Reference Range Interpretation Comments Hematocrit (test code = 4544-3) 31.9 34.2-44.1 L [facility] CenterMean Corpuscular Ljechs9009-61-51 00:53:00* Test Item Value Reference Range Interpretation Comments Mean Corpuscular Volume (test code = 787-2) 75.4 81-99 L [facility] CenterMean Corpuscular Gazkbxsmbx1257-38-47 00:53:00* Test Item Value Reference Range Interpretation Comments Mean Corpuscular Hemoglobin (test code = 785-6) 23.2 28-32 L [facility] CenterMean Corpuscular Hemoglobin Concent 2017-10-02 00:53:00* Test Item Value Reference Range Interpretation Comments Mean Corpuscular Hemoglobin Concent (test code = 786-4) 30.7 31-35 L [facility] CenterRed Cell Distribution Hapqi2757-53-46 00:53:00* Test Item Value Reference Range Interpretation Comments Red Cell Distribution Width (test code = 85999-9) 17.0 11.7 -14.4 H [facility] CenterPlatelet Gdofk7240-94-11 00:53:00* Test Item Value Reference Range Interpretation Comments Platelet Count (test code = 777-3) 246 140-360 [facility] CenterNeutrophils (%) (Auto)2017-10-02 00:53:00 * Test Item Value Reference Range Interpretation Comments Neutrophils (%) (Auto) (test code = 33585-1) 51.3 38.7-80.0 [facility] CenterLymphocytes (%) (Auto)2017-10-02 00:53:00 * Test Item Value Reference Range Interpretation Comments Lymphocytes (%) (Auto) (test code = 736-9) 37.8 18.0-39.1 [facility] CenterMonocytes (%) (Auto)2017-10-02 00:53:00* Test Item Value Reference Range Interpretation Comments Monocytes (%) (Auto) (test code = 5905-5) 6.1 4.4-11.3 [facility] CenterEosinophils (%) (Auto)2017-10-02 00:53:00 * Test Item Value Reference Range Interpretation Comments Eosinophils (%) (Auto) (test code = 713-8) 4.4 0.0-6.0 [facility] CenterBasophils (%) (Auto)2017-10-02 00:53:00* Test Item Value Reference Range Interpretation Comments Basophils (%) (Auto) (test code = 706-2) 0.2 0.0-1.0 [facility] CenterIM GRANULOCYTES %2017-10-02 00:53:00* Test Item Value Reference Range Interpretation Comments IM GRANULOCYTES % (test code = IM GRANULOCYTES %) 0.2 0.0- 1.0 [facility] CenterNeutrophils # (Auto)2017-10-02 00:53:00* Test Item Value Reference Range Interpretation Comments Neutrophils # (Auto) (test code = 751-8) 4.3 2.1-6.9 [facility] CenterLymphocytes # (Auto)2017-10-02 00:53:00* Test Item Value Reference Range Interpretation Comments Lymphocytes # (Auto) (test code = 42823-7) 3.2 1.0-3.2 [facility] CenterMonocytes # (Auto)2017-10-02 00:53:00* Test Item Value Reference Range Interpretation Comments Monocytes # (Auto) (test code = 742-7) 0.5 0.2-0.8 [facility] CenterEosinophils # (Auto)2017-10-02 00:53:00* Test Item Value Reference Range Interpretation Comments Eosinophils # (Auto) (test code = 711-2) 0.4 0.0-0.4 [facility] CenterBasophils # (Auto)2017-10-02 00:53:00* Test Item Value Reference Range Interpretation Comments Basophils # (Auto) (test code = 704-7) 0.0 0.0-0.1 [facility] CenterAbsolute Immature Granulocyte (auto 2017-10-02 00:53:00* Test Item Value Reference Range Interpretation Comments Absolute Immature Granulocyte (auto (jesus t code = Absolute Immature Granulocyte (auto) 0.02 0-0.1 [facility] CenterWhite Blood Cgmaq6641-42-68 00:53:00* Test Item Value Reference Range Interpretation Comments White Blood Count (test code = 6690-2) 8.39 4.8-10.8 [facility] CenterRed Blood Lavqr8543-33-29 00:53:00* Test Item Value Reference Range Interpretation Comments Red Blood Count (test code = 789-8) 4.23 3.6-5.1 [facility] CenterHemoglobin2018-02-17 00:53:00* Test Item Value Reference Range Interpretation Comments Hemoglobin (test code = 00181-4) 9.8 12.0-16.0 L [facility] CenterHematocrit2018-02-17 00:53:00* Test Item Value Reference Range Interpretation Comments Hematocrit (test code = 4544-3) 31.9 34.2-44.1 L [facility] CenterMean Corpuscular Txdsvu8955-74-60 00:53:00* Test Item Value Reference Range Interpretation Comments Mean Corpuscular Volume (test code = 787-2) 75.4 81-99 L [facility] CenterMean Corpuscular Agzvchfnyh5397-92-39 00:53:00* Test Item Value Reference Range Interpretation Comments Mean Corpuscular Hemoglobin (test code = 785-6) 23.2 28-32 L [facility] CenterMean Corpuscular Hemoglobin Concent 2017-10-02 00:53:00* Test Item Value Reference Range Interpretation Comments Mean Corpuscular Hemoglobin Concent (test code = 786-4) 30.7 31-35 L [facility] CenterRed Cell Distribution Dcpgt4302-03-54 00:53:00* Test Item Value Reference Range Interpretation Comments Red Cell Distribution Width (test code = 12065-1) 17.0 11.7 -14.4 H [facility] CenterPlatelet Ujlpl4580-23-20 00:53:00* Test Item Value Reference Range Interpretation Comments Platelet Count (test code = 777-3) 246 140-360 [facility] CenterNeutrophils (%) (Auto)2017-10-02 00:53:00 * Test Item Value Reference Range Interpretation Comments Neutrophils (%) (Auto) (test code = 61340-2) 51.3 38.7-80.0 [facility] CenterLymphocytes (%) (Auto)2017-10-02 00:53:00 * Test Item Value Reference Range Interpretation Comments Lymphocytes (%) (Auto) (test code = 736-9) 37.8 18.0-39.1 [facility] CenterMonocytes (%) (Auto)2017-10-02 00:53:00* Test Item Value Reference Range Interpretation Comments Monocytes (%) (Auto) (test code = 5905-5) 6.1 4.4-11.3 [facility] CenterEosinophils (%) (Auto)2017-10-02 00:53:00 * Test Item Value Reference Range Interpretation Comments Eosinophils (%) (Auto) (test code = 713-8) 4.4 0.0-6.0 [facility] CenterBasophils (%) (Auto)2017-10-02 00:53:00* Test Item Value Reference Range Interpretation Comments Basophils (%) (Auto) (test code = 706-2) 0.2 0.0-1.0 [facility] CenterIM GRANULOCYTES %2017-10-02 00:53:00* Test Item Value Reference Range Interpretation Comments IM GRANULOCYTES % (test code = IM GRANULOCYTES %) 0.2 0.0- 1.0 [facility] CenterNeutrophils # (Auto)2017-10-02 00:53:00* Test Item Value Reference Range Interpretation Comments Neutrophils # (Auto) (test code = 751-8) 4.3 2.1-6.9 [facility] CenterLymphocytes # (Auto)2017-10-02 00:53:00* Test Item Value Reference Range Interpretation Comments Lymphocytes # (Auto) (test code = 08693-0) 3.2 1.0-3.2 [facility] CenterMonocytes # (Auto)2017-10-02 00:53:00* Test Item Value Reference Range Interpretation Comments Monocytes # (Auto) (test code = 742-7) 0.5 0.2-0.8 [facility] CenterEosinophils # (Auto)2017-10-02 00:53:00* Test Item Value Reference Range Interpretation Comments Eosinophils # (Auto) (test code = 711-2) 0.4 0.0-0.4 [facility] CenterBasophils # (Auto)2017-10-02 00:53:00* Test Item Value Reference Range Interpretation Comments Basophils # (Auto) (test code = 704-7) 0.0 0.0-0.1 [facility] CenterAbsolute Immature Granulocyte (auto 2017-10-02 00:53:00* Test Item Value Reference Range Interpretation Comments Absolute Immature Granulocyte (auto (jesus t code = Absolute Immature Granulocyte (auto) 0.02 0-0.1 [facility] CenterCreatine Kinase RH4744-21-31 06:56:00* Test Item Value Reference Range Interpretation Comments Creatine Kinase MB (test code = 45882-4) 0.80 0.00-5.00 [facility] Y0887-89-68 06:56:00* Test Item Value Reference Range Interpretation Comments Troponin I (test code = ADB6874) 0.014 0-0.300 [facility] CenterCreatine Kinase TZ9520-98-64 06:56:00* Test Item Value Reference Range Interpretation Comments Creatine Kinase MB (test code = 79532-7) 0.80 0.00-5.00 [facility] S4973-41-06 06:56:00* Test Item Value Reference Range Interpretation Comments Troponin I (test code = WKI3811) 0.014 0-0.300 [facility] CenterCreatine Iljfio7960-24-82 06:53:00* Test Item Value Reference Range Interpretation Comments Creatine Kinase (test code = 2157-6) 38 29-168 [facility]Cre[facility] Oyhelp9376-10-94 06:53:00* Test Item Value Reference Range Interpretation Comments Creatine Kinase (test code = 2157-6) 38 29-168 [facility] CenterProthrombin Zadz1835-15-98 16:16:00* Test Item Value Reference Range Interpretation Comments Prothrombin Time (test code = 5902-2) 12.9 11.9-14.5 [facility] CenterProthromb Time International Ratio 2017-07-26 16:16:00* Test Item Value Reference Range Interpretation Comments Prothromb Time International Ratio (test code = 6301-6) 0.93 Oral Anticoagulant Therapy INR Values:1. Low Intensity Therapy 1.5 - 2.02 . Moderate Intensity Therapy 2.0 - 3.03. High Intensity Therapy(1) 2.5 - 3. 54. High Intensity Therapy(2) 3.0 - 4.05. Panic Value INR > 5.0 [facility] CenterActivated Partial Thromboplast Time 2017-07-26 16:16:00* Test Item Value Reference Range Interpretation Comments Activated Partial Thromboplast Time (test code = 00189-7) 24.4 23.8-35.5 [facility] CenterProthrombin Laru8787-14-20 16:16:00* Test Item Value Reference Range Interpretation Comments Prothrombin Time (test code = 5902-2) 12.9 11.9-14.5 [facility] CenterProthromb Time International Ratio 2017-07-26 16:16:00* Test Item Value Reference Range Interpretation Comments Prothromb Time International Ratio (test code = 6301-6) 0.93 Oral Anticoagulant Therapy INR Values:1. Low Intensity Therapy 1.5 - 2.02 . Moderate Intensity Therapy 2.0 - 3.03. High Intensity Therapy(1) 2.5 - 3. 54. High Intensity Therapy(2) 3.0 - 4.05. Panic Value INR > 5.0 [facility] CenterActivated Partial Thromboplast Time 2017-07-26 16:16:00* Test Item Value Reference Range Interpretation Comments Activated Partial Thromboplast Time (test code = 38030-2) 24.4 23.8-35.5 [facility] CenterTriglycerides Nxbzv4440-31-26 06:54:00* Test Item Value Reference Range Interpretation Comments Triglycerides Level (test code = 2571-8) 161 0-149 H [facility] CenterCholesterol Zblje2650-21-45 06:54:00* Test Item Value Reference Range Interpretation Comments Cholesterol Level (test code = 2093-3) 161 0-199 Less than 200 mg/dL Low Ukor412 - 239 mg/dL Borderline Mvdg612 m g/dl and greater High Risk [facility] CenterLDL Anrghqmirhw3226-41-95 06:54:00* Test Item Value Reference Range Interpretation Comments LDL Cholesterol (test code = 76295-5) 81 60-130 [facility] CenterHDL Wmibdcufuug0583-30-08 06:54:00* Test Item Value Reference Range Interpretation Comments HDL Cholesterol (test code = 2085-9) 48 40-60 [facility] CenterCholesterol/HDL Wswbr9328-24-24 06:54:00 * Test Item Value Reference Range Interpretation Comments Cholesterol/HDL Ratio (test code = 9830-1) 3.4 3.0-3.6 [facility] CenterUrine Opiates Vovjxz7711-92-75 04:55:00* Test Item Value Reference Range Interpretation Comments Urine Opiates Screen (test code = 54432-9) NEGATIVE NEGATIVE [facility] CenterUrine Barbiturates Lquxmi4894-42-04 04:55:00* Test Item Value Reference Range Interpretation Comments Urine Barbiturates Screen (test code = 506586754) NEGATIVE NEGA TIVE [facility] CenterUrine Phencyclidine Bxtjku9822-70-48 04:55:00* Test Item Value Reference Range Interpretation Comments Urine Phencyclidine Screen (test code = 85880-6) NEGATIVE NEGAT JESS [facility] CenterUrine Amphetamines Rcbrgj0054-27-46 04:55:00* Test Item Value Reference Range Interpretation Comments Urine Amphetamines Screen (test code = 20742-7) NEGATIVE NEGATI VE [facility] CenterUrine Benzodiazepines Ywtwrh6506-39-91 04:55:00* Test Item Value Reference Range Interpretation Comments Urine Benzodiazepines Screen (test code = 33769-1) NEGATIVE NEG ATIVE [facility] CenterUrine Cocaine Ixaejt1095-31-87 04:55:00* Test Item Value Reference Range Interpretation Comments Urine Cocaine Screen (test code = Urine Cocaine Screen) NEGATIVE NEGATIVE [facility] CenterUrine Cannabinoids Ophpnl2631-19-24 04:55:00* Test Item Value Reference Range Interpretation Comments Urine Cannabinoids Screen (test code = 86312-0) NEGATIVE NEGATI VE THESE RESULTS ARE FOR MEDICAL TREATMENT ONLYTHIS REPORT CONTAINS UNCONFIR MED SCREENING RESULTS*POSITIVE RESULTS WILL BE CONFIRMED BY REFERENCE LAB UPON R EQUEST CUT-OFFDRUG CLASS CONCENTRATION ng/mLAmphetamines 1000Methamphetamines 1000Cocaine 300Opiate 300Phencyc lidine 25Cannabinoid 50Barbiturates 300Benzodiazepine 300Methadone 300[facility] CenterThyroid Stimulating Hormone (TSH)2017-07-01 03:44:00* Test Item Value Reference Range Interpretation Comments Thyroid Stimulating Hormone (TSH) (test code = 34646-4) 3.278 0.350-4.940 [facility] CenterMagnesium Zbtvz3037-43-55 03:29:00* Test Item Value Reference Range Interpretation Comments Magnesium Level (test code = 10208-5) 2.3 1.3-2.1 H [facility] CenterDifferential Total Cells Counted 2017-06-07 12:11:00* Test Item Value Reference Range Interpretation Comments Differential Total Cells Counted (test code = Differen tial Total Cells Counted) 100 [facility] CenterNeutrophils % (Manual)2017-06-07 12:11:00 * Test Item Value Reference Range Interpretation Comments Neutrophils % (Manual) (test code = 78231-4) 31 40-74 L [facility] CenterLymphocytes % (Manual)2017-06-07 12:11:00 * Test Item Value Reference Range Interpretation Comments Lymphocytes % (Manual) (test code = 737-7) 50 19-48 H [facility] CenterMonocytes % (Manual)2017-06-07 12:11:00* Test Item Value Reference Range Interpretation Comments Monocytes % (Manual) (test code = 744-3) 9 3.4-9.0 [facility] CenterEosinophils % (Manual)2017-06-07 12:11:00 * Test Item Value Reference Range Interpretation Comments Eosinophils % (Manual) (test code = 714-6) 4 0-7 [facility] CenterMetamyelocytes %2017-06-07 12:11:00* Test Item Value Reference Range Interpretation Comments Metamyelocytes % (test code = 740-1) 1 0-0 H [facility] CenterReactive Vsjzanbajgh0613-75-19 12:11:00* Test Item Value Reference Range Interpretation Comments Reactive Lymphocytes (test code = 82302-2) 5 [facility] CenterPlatelet Grpvgodz1400-24-25 12:11:00* Test Item Value Reference Range Interpretation Comments Platelet Estimate (test code = 05441-8) ADEQUATE [facility] CenterPlatelet Morphology Rvstlvl8133-54-35 12:11:00* Test Item Value Reference Range Interpretation Comments Platelet Morphology Comment (test code = 84685-0) NORMAL [facility] CenterHypochromasia2017-10-23 12:11:00* Test Item Value Reference Range Interpretation Comments Hypochromasia (test code = 728-6) SLIGHT [facility] CenterAnisocytosis2017-10-23 12:11:00* Test Item Value Reference Range Interpretation Comments Anisocytosis (test code = 702-1) SLIGHT [facility] CenterRed Cell Morphology Tqwruhl9114-13-68 12:11:00* Test Item Value Reference Range Interpretation Comments Red Cell Morphology Comment (test code = 6742-1) ABNORMAL [facility] CenterCT ABDOMEN/PELVIS W [facility] [address] [address] Patient Name: SASHA POPE MR #: [id number] : 1965 Age/Sex: 52/F Req #: [id number] [facility] Physician: Ordered by: ANN CHADWICK MD Report #: [id number] Location: ER Room/Bed: Procedure: [id number] CT/CT ABDOMEN/PELVIS W Exam Date: 10/02/17 Exam Time: 014 REPORT STA TUS: Signed EXAM: CT ABDOMEN/PELVIS [...] TO: ANN CHADWICK MD CHEST 2 VIEWS [place] [address] Patient Name: SASHA POPE MR #: [id number] : 1965 Age/Sex: 52/F Req #: [id number] [facility] Physician: Ordered by: DYLAN PRUITT MD Report #: [id number] Location: ER Room/Bed: Procedure: [id number] DX/CHEST 2 VIEWS Exam Date: 07/26/17 Exam Time: 1546 REPORT STATUS: Signed PROCEDURE: CHEST 2 VIEWS TECHNIQUE: PA and lateral chest INDICATION: Fall COMPARISON: [facility], DX, CHEST 2 VIEWS, 07/01/2017, 3:00. FINDINGS: Lungs are clear and symmetrically inflated. No pleura l effusions. Normal heart size, mediastinal contour, and pulmonary vasculatur e. Loop recorder over the left hemithorax. Intact skeleton. Cholecystectomy clips. CONCLUSION: No acute abnormality. Dictated by : Billy Thorne M.D. on 07/26/2017 at 16:25 Electronically approve d by: Billy Thorne M.D. on 07/26/2017 at 16:25 Dictate d By: BILLY THORNE MD 24 Transcribed By: JERALD on 07/26/171624 COPY TO: DYLAN PRUITT CT CERVICAL SPINE WO [place] [address] Patient Name: SASHA POPE MR #: [id number] : 1965 Age/Sex: 52/F Req #: [id number] Adm Physician: Ordered by: DYLAN PRUITT MD Report #: [id number] Location: ER Room/Bed: Procedure: [id number] CT/CT CERVICAL SPINE WO Exa m Date: 07/26/17 Exam Time: 1530 REPORT [...] No cervical spine fracture or subluxation. 2. Canno t adequately evaluate ligament, spinal cord and or vascular abnormalities on t he basis of this examination. Signed by: Dr. John Olmos M.D. on 017 4:41 PM Dictated By: JOHN OLMOS MD 40 Transcribed By: GARO on 07/26/171640 COPY TO: DYLAN PRUITT MD CT BRAIN WO [address] [place] [address] Patient Name: SASHA POPE MR #: [id number] : 1965 Age/Sex: 52/F Req #: [id number] Adm Physician: Ordered by: DYLAN PRUITT MD Report #: [id number] Location: ER Room/Bed: Procedure: [id number] CT/CT BRAIN WO Exam Date: 09/26/16 Exam [...] : DYLAN PRUITT MD CHEST 2 VIEWS [place] [address] Patient Name: SASHA POPE MR #: [id number] : 1965 Age/Sex: 52/F Req #: [id number] Adm Physician: Ordered by: BULMARO THEODORE MD Report #: [id number] Location: ER Room/Bed: Procedure: [id number] DX/CHEST 2 VIEWS Exam Date: 08/31/16 Exam [...] 3:47 AM Dictated By: ISAAC MCFADDEN MD [facility] Signed By: ISAAC MCFADDEN MD on 07/01/17346 Transcribed By: GARO on 07/01/17346 COPY TO: BULMARO THEODORE MD CHEST SINGLE (PORTABLE) [place] [address] Patient Name: SASHA POPE MR #: [id number] : 1965 Age/Sex: 52/F Req #: [id number] Adm Physician: Ordered by: HELEN GRIFFIN MD Report #: [id number] Location: ER Room/Bed: Procedure: [id number] DX/CHEST SINGLE (PORTABLE) Michelet beyer Date: 06/07/17 Exam Time: 0725 REPORT STATUS: Signed PROCEDURE: A single AP view of the chest. COMPARISON: Portabl e chest 04/23/2015. INDICATIONS: CHEST PAIN, SOB, COUGH FINDINGS : Lines/tubes: None. Lungs: The lungs are well inflated and clear. The re is no evidence of pneumonia or pulmonary [...]
[2020-01-16 20:18] VITALS: BP 102/60
--- NOTE | 2020-01-16 20:22 | Emergency Department Note ---
History of Present Illnes History of Present Illness Chief Complaint: General Medicine Complaints History of Present Illness This is a 55 year old female presents with left side pain since wednesday, starts left mid back and wraps around to under her left breast. nothing makes it worse or better, pt reports she has had shingles twice in past on opposite side with similar pain. seen elda up on wednesday had work up including ct chest that only revealed bronchitis, pt was started on muscle relaxers and pain medication, states pain has not changed since. . Historian: Patient Arrival Mode: Car Onset (how long ago): day(s) (5) Location: left side mid back to under left breast Quality: pain Radiation: other (starts left mid back and wraps to under left breast) Severity: severe Onset quality: gradual Duration (how long): day(s) (5) Timing of current episode: constant Progression: unchanged Chronicity: recurrent (2 similar episodes in past but on opposite side with shingles) Context: recent illness Relieving factors: none Exacerbating factors: none Associated symptoms: denies other symptoms Past Medical/Family History Physician Review I have reviewed the patient's past medical and family history. Any updates have been documented here. Past Medical History Recent Fever: No Clinical Suspicion of Infectio: No New/Unexplained Change in Ment: No Past Medical History: Hypothyroidism, Cancer, Kidney Stones, Hyperlipedemia Other Medical History: colon cancer, kidney cancer partial left kidney removal thyroid ca Past Surgical History: Cholecysctectomy, Appendectomy, Hysterectomy Other Surgery: colectomy THYROIDECTOMY Social History Smoking Cessation: Never Smoker Alcohol Use: None Any Illegal Drug Use: No Family History Family history of heart diseas: No Other Last Tetanus: UTD Review of Systems Review of Systems Constitutional: no symptoms EENTM: no symptoms Cardiovascular: no symptoms Respiratory: no symptoms Gastrointestinal: no symptoms Genitourinary: no symptoms Musculoskeletal: as per HPI Neurological: no symptoms Psychological: no symptoms Endocrine: no symptoms Hematological/Lymphatic: no symptoms Review of other systems All other systems reviewed and negative. Physical Exam Related Data Allergies: Coded Allergies: morphine (Verified Allergy, Mild, HIVES, 12/02/18) Triage Vital Signs Vital Signs Date Time Temp Pulse Resp B/P (MAP) Pulse Ox O2 Delivery O2 Flow Rate FiO2 01/16/20 18:47 98.2 79 18 122/72 97 Vital signs reviewed: Yes Physical Exam CONSTITUTIONAL Constitutional: well-developed, well-nourished HENT HENT: normocephalic, atraumatic, oropharynx clear/moist, nose normal HENT L/R: left ext ear normal, right ext ear normal EYES Eyes: PERRL, conjunctivae normal NECK Neck: ROM normal PULMONARY Pulmonary: effort normal, breath sounds normal CARDIOVASCULAR Cardiovascular: regular rhythm, heart sounds normal, capillary refill normal, normal rate GASTROINTESTINAL Abdominal: soft, nontender, bowel sounds normal GENITOURINARY Genitourinary: exam deferred SKIN Skin: warm, dry, other (no rash noted at this time) MUSCULOSKELETAL Musculoskeletal: ROM normal NEUROLOGICAL Neurological: alert, oriented x 3, no gross motor or sensory deficits PSYCHOLOGICAL Psychological: mood/affect normal, judgement normal Procedures 12 Lead ECG Interpretation Documentation Liaison: Interpreted by ED physician Rhythm: sinus rhythm Rate: bradycardia BPM: 53 QRS axis: normal ST segments normal: Yes T waves normal: Yes Clinical Impression: non-specific ECG Critical Care Time Subsequent provider I assumed direction of critical care for this patient from another provider of my specialty. Assessment & Plan Assessment & Plan Final Impression: (1) ZOSTER WITHOUT COMPLICATIONS Assessment & Plan pt with constant left side pain, h/o shingles with similar symptoms in past but on opposite side twice, pt most likely has pre herpetic neuralgia at this time discharged with valtrex 1000 mg po tid for 7 days and lidoderm patches 1 daily, 12 hours on and 12 hours off Last Vital Signs Date Time Temp Pulse Resp B/P (MAP) Pulse Ox O2 Delivery O2 Flow Rate FiO2 01/16/20 20:07 98.8 62 18 102/60 99 Home Meds Active Scripts Azithromycin (Z-FELIPA) 250 Mg Tablet, 250 MG PO UD for infection for 5 Days, #1 UDPKT 0 Refills Z-Pack Prov:CLAYTON ORR MD 01/14/20 Naproxen (NAPROXEN) 250 Mg Tablet, 500 MG PO BID for muscle pain and inflammation, #20 TAB 0 Refills Prov:CLAYTON ORR MD 01/14/20 Methocarbamol (ROBAXIN-750) 750 Mg Tablet, 1-2 TAB PO Q8H for muscle pain, #20 TAB 0 Refills Do NOT take and drive or operate machinery Prov:CLAYTON ORR MD 01/14/20 Omeprazole (OMEPRAZOLE) 40 Mg Capsule.dr, 1 TAB PO DAILY for 14 Days Prov:CARLEEN ALBERT MD 10/20/18 Ketorolac Tromethamine (TORADOL) 10 Mg Tablet, 10 MG PO Q8H for pain for 7 Days, #21 Prov:CARLEEN ALBERT MD 10/20/18 Reported Medications D-Methorphan Hb/P-Epd Hcl/Bpm (BROMFED DM COUGH SYRUP) 118 Ml Syrup, 10 ML PO Q6H, #200 ML 05/22/19 Albuterol Sulf* (PROAIR HFA INHALER*) 8.5 Gm Inh, 2 INH INH Q4HR PRN for SHORTNESS OF BREATH, #1 05/22/19 Methylprednisolone (MEDROL) 4 Mg Tablet, 4 MG PO UD for 6 Days 05/22/19 Acetaminophen With Codeine (TYLENOL WITH CODEINE #3 TABLET) 1 Each Tablet, 300 MG PO TID PRN for PRN, TAB 06/02/18 Gabapentin (GABAPENTIN) 300 Mg Capsule, 300 MG PO TID, #60 CAP 06/02/18 ANN CHADWICK MD Jan 16, 2020 20:22
== END 2020-01-16 20:22 | disposition home or self-care (01) ==
LOC: ER 18:40
DX: B02.9 Zoster without complications (principal); E78.5 Hyperlipidemia, unspecified; E03.9 Hypothyroidism, unspecified; Z85.038 Personal history of other malignant neoplasm of large intestine; Z85.528 Personal history of other malignant neoplasm of kidney
CPT/HCPCS: 93005; 99283

== ENCOUNTER 2020-04-16 16:10 | Emergency (ER) | payer MEDICARE, OTHER ==
[~2020-04-16] VITALS: Ht 147.3 cm; Wt 63.5 kg
[2020-04-16] MEDS ORDERED: KETOROLAC TROMETHAMINE 30 MG/ML VIAL IV STA (16:24)
[2020-04-16] MEDS ORDERED: METOCLOPRAMIDE HCL 10 MG/2ML VIAL IV STA (16:24)
[2020-04-16] MEDS ORDERED: DIPHENHYDRAMINE HCL INJ 50 MG/ML VIAL IV STA (16:24)
[2020-04-16] MEDS ORDERED: SODIUM CHLORIDE 0.9% 1000ML 1,000 ML IV STA (16:24)
--- NOTE | 2020-04-16 16:24 | Emergency Department Note ---
History of Present Illnes History of Present Illness History of Present Illness This is a 55 year old female presents with 1 week history of left sided ALAMO which radiates to neck. Denies f/c/n/v. Prior h/o of migraine ALAMO but reports that this current ALAMO is different in quality. . Historian: Patient Arrival Mode: Car Manager Ambulatory Required: No Onset (how long ago): week(s) (1) Location: Left sided ALAMO front to occiput Radiation: Reports neck Severity: moderate Onset quality: gradual Duration (how long): week(s) (1) Timing of current episode: constant Progression: worsening Chronicity: new Relieving factors: none Exacerbating factors: none Associated symptoms: Reports headaches; Denies fever/chills, Denies nausea/vomiting Treatments prior to arrival: other (tylenol #3) Past Medical/Family History Physician Review I have reviewed the patient's past medical and family history. Any updates have been documented here. Past Medical History Recent Fever: No Clinical Suspicion of Infectio: No New/Unexplained Change in Ment: No Past Medical History: Hypothyroidism, Cancer, Kidney Stones, Hyperlipedemia Other Medical History: colon cancer, kidney cancer partial left kidney removal thyroid ca Past Surgical History: Cholecysctectomy, Appendectomy, Hysterectomy Other Surgery: colectomy THYROIDECTOMY Other Last Tetanus: UTD Review of Systems Review of Systems Constitutional: Reports no symptoms EENTM: Reports no symptoms Cardiovascular: Reports no symptoms Respiratory: Reports no symptoms Gastrointestinal: Reports no symptoms Genitourinary: Reports no symptoms Musculoskeletal: Reports no symptoms Integumentary: Reports no symptoms Neurological: Reports headache Psychological: Reports no symptoms Endocrine: Reports no symptoms Hematological/Lymphatic: Reports no symptoms Physical Exam Related Data Allergies: Coded Allergies: morphine (Verified Allergy, Mild, HIVES, 12/02/18) Vital signs reviewed: Yes Physical Exam CONSTITUTIONAL Constitutional: Present well-developed, Present well-nourished HENT HENT: Present normocephalic, Present atraumatic, Present oropharynx clear/florencia st, Present nose normal HENT L/R: Present left ext ear normal, Present right ext ear normal EYES Eyes: Reports PERRL, Reports conjunctivae normal NECK Neck: Present ROM normal PULMONARY Pulmonary: Present effort normal, Present breath sounds normal CARDIOVASCULAR Cardiovascular: Present regular rhythm, Present heart sounds normal, Present capillary refill normal, Present normal rate GASTROINTESTINAL Abdominal: Present soft, Present nontender, Present bowel sounds normal GENITOURINARY Genitourinary: Present exam deferred SKIN Skin: Present warm, Present dry MUSCULOSKELETAL Musculoskeletal: Present ROM normal NEUROLOGICAL Neurological: Present alert, Present oriented x 3, Present no gross motor or sensory deficits PSYCHOLOGICAL Psychological: Present mood/affect normal, Present judgement normal Results Laboratory Lab results reviewed: Yes Imaging Imaging results reviewed: Yes Impressions [place] [address] Patient Name: SASHA POPE MR #: [id number] : 1965 Age/Sex: 55/F Req #: [id number] Adm Physician: Ordered by: MARIA ISABEL ARIAS DO Report #: [id number] Location: [facility] Room/Bed: Procedure: [id number] HOPD/CT BRAIN WO-HOP Exam Date: 04/16/20 Exam Time: 1649 REPORT STATUS: Signed Exam: Head CT without contrast History: Severe headache Comparison studies: Head CT 07/26/2017. Technique: Axial images were obtained from the skull base to the vertex. Coronal and sagittal images reconstructed from the axial data. Dose modulation, iterative reconstruction, and/or weight based adjustment of the mA/kV was utilized to reduce the radiation dose to as low as reasonably achievable. Radiation dose: Total DLP: 969.14 mGy*cm. Estimated effective dose: DLP x 0.015 Intravenous contrast: None Findings: Scalp: No abnormalities. Bones: No fractures, blastic or lytic lesions. Brain sulci: Appropriate for age. Ventricles: Normal in size and configuration. No hydrocephalus. Extra-axial spaces: No masses, no fluid collection. Parenchyma: No mass, acute hemorrhage or acute or chronic cortical insults. Incidental physiologic calcifications in the globi pallidi. Sellar/suprasellar region: No abnormalities. Craniocervical junction: Patent foramen magnum. 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 Middle ear cavities and mastoids: Clear. Included paranasal sinuses: Clear. Additional findings: Atherosclerotic calcifications in the carotid siphons. IMPRESSION: 1. No acute abnormalities. 2. No changes from the prior head CT of 07/26/2017. Signed by: Dr. John Saldivar M.D. on 04/16/2020 5:09 PM Dictated By: JOHN SALDIVAR MD 08 Transcribed By: GARO on 04/16/201708 COPY TO: MARIA ISABEL ARIAS DO~ Assessment & Plan Medical Decision Making [facility] DDDx : COVID-19 infection, metastasis to brain, dehydration, SAH, Reassessment Reassessment time: 17:31 Reassessment Patient with marked improvement in ALAMO Assessment & Plan Final Impression: (1) Headache Depart Disposition: HOME, SELF-[facility] Meds Active Scripts Azithromycin (Z-FELIPA) 250 Mg Tablet, 250 MG PO UD for infection for 5 Days, #1 UDPKT 0 Refills Z-Pack Prov:CLAYTON ORR MD 01/14/20 Naproxen (NAPROXEN) 250 Mg Tablet, 500 MG PO BID for muscle pain and inflammation, #20 TAB 0 Refills Prov:CLAYTON ORR MD 01/14/20 Methocarbamol (ROBAXIN-750) 750 Mg Tablet, 1-2 TAB PO Q8H for muscle pain, #20 TAB 0 Refills Do NOT take and drive or operate machinery Prov:CLAYTON ORR MD 01/14/20 Omeprazole (OMEPRAZOLE) 40 Mg Capsule., 1 TAB PO DAILY for 14 Days Prov:CARLEEN ALBERT MD 10/20/18 Ketorolac Tromethamine (TORADOL) 10 Mg Tablet, 10 MG PO Q8H for pain for 7 Days, #21 Prov:CARLEEN ALBERT MD 10/20/18 Reported Medications D-Methorphan Hb/P-Epd Hcl/Bpm (BROMFED DM COUGH SYRUP) 118 Ml Syrup, 10 ML PO Q6H, #200 ML 05/22/19 Albuterol Sulf* (PROAIR HFA INHALER*) 8.5 Gm Inh, 2 INH INH Q4HR PRN for SHORTNESS OF BREATH, #1 05/22/19 Methylprednisolone (MEDROL) 4 Mg Tablet, 4 MG PO UD for 6 Days 05/22/19 Acetaminophen With Codeine (TYLENOL WITH CODEINE #3 TABLET) 1 Each Tablet, 300 MG PO TID PRN for PRN, TAB 06/02/18 Gabapentin (GABAPENTIN) 300 Mg Capsule, 300 MG PO TID, #60 CAP 06/02/18 MARIA ISABEL ARIAS DO Apr 16, 2020 16:24
--- OUTSIDE RECORDS SUMMARY | 2020-04-16 16:28 | XMS REPORT | Clinical Summary ---
Author Author ERI [facility] Address Unknown Phone Unavailable Care Team Providers Care Director Trade Name Role Phone Vrea, Grant Jarrod PCP Allergies Comments Active Allergy [...] THYROIDECTOMY,TOTAL 07/11/2019 Surgery Fareed Vang MD 07/11/2019 [facility] General Internal Me dicine - Encounter 07/12/2019 Kelvin Wells MD 07/05/2019 Hospital Pre-Admission Testi ng Encounter after 04/16/2019 Social History Date Tobacco Use Types Packs/Day [...] Taken Vital Sign Reading 07/12/2019 8:48 AM TIME STAMP ASSEMBLER Blood Pressure 140/67 07/12/2019 8:48 AM TIME STAMP ASSEMBLER Pulse 52 07/12/2019 8:48 AM TIME STAMP ASSEMBLER Temperature 36.1 C (97 F) 07/12/2019 8:48 AM TIME STAMP ASSEMBLER Respiratory Rate 18 07/12/2019 8:48 AM TIME STAMP ASSEMBLER Oxygen Saturation 98% - Inhaled Oxygen - Concentration 07/11/2019 6:20 AM TIME STAMP ASSEMBLER Weight 63.2 kg (139 lb 4.8 oz) 07/11/2019 6:20 AM TIME STAMP ASSEMBLER Height 147.3 cm (4' 10") 07/11/2019 6:20 AM TIME STAMP ASSEMBLER Body Mass Index 29.11 Plan of Treatment Not on file Procedures Comments Procedure Name Priority Date/Time Associated Diag nosis CALCIUM Routine 07/17/2019 Malignant neopl asm of 11:28 AM TIME STAMP ASSEMBLER thyroid gland (HCC) CALCIUM, IONIZED Routine 07/12/2019 8:40 AM TIME STAMP ASSEMBLER CALCIUM, IONIZED Routine 07/11/2019 9:47 PM TIME STAMP ASSEMBLER PTH, INTACT ALISIA 07/11/2019 11:12 AM TIME STAMP ASSEMBLER CALCIUM, IONIZED AILSIA 07/11/2019 11:12 AM TIME STAMP ASSEMBLER TISSUE EXAM AP Routine 07/11/2019 9:47 AM TIME STAMP ASSEMBLER PROCEDURE W/ NIMS 07/11/2019 Malignant neoplasm of 7:30 AM TIME STAMP ASSEMBLER thyroid gland (HCC) Case Notes 2 HRS PER FAX THYROIDECTOMY,TOTAL 07/11/2019 Malignant neoplas m of 7:30 AM TIME STAMP ASSEMBLER thyroid gland (HCC) Case Notes 2 HRS PER FAX PLATELET COUNT Routine 07/05/2019 4:34 PM TIME STAMP ASSEMBLER PROTHROMBIN TIME/INR Routine 07/05/2019 4:34 PM TIME STAMP ASSEMBLER HEMOGLOBIN Routine 07/05/2019 4:34 PM TIME STAMP ASSEMBLER after 04/16/2019 Results * Calcium (07/17/2019 11:28 AM TIME STAMP ASSEMBLER) Calcium 9.9 8.4 - 10.2 mg/dL [facility] Specimen Blood Performing Organization Address [facility] Ph one Number [address] [facility] * Calcium, Ionized (07/12/2019 8:40 AM TIME STAMP ASSEMBLER) Only the most recent of 3 results within the time period is included. Calcium, Ion 1.19 1.12 - 1.27 mmol/L [facility] pH, Blood 7.37 [facility] H [facility] Specimen Blood Performing Organization Address [facility] Ph one Number [address] [facility] * PTH, intact (07/11/2019 11:12 AM TIME STAMP ASSEMBLER) PTH 64.0 8.5 - 72.5 pg/mL [facility] Specimen Blood Performing Organization Address [facility] Ph one Number [address] [facility] * Tissue Exam (07/11/2019 9:47 AM TIME STAMP ASSEMBLER) Case Report Surgical Pathology [facility] TH Report [facility] Case: [id number] Authorizing Provider:Fareed Vang MDCollected: 07/11/2019 0947 Ordering Location: 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 THE NEOPLASM IS PRESENT IN THE RIGHT LOWER LOBE. LYMPHOVASCULAR INVASION IS NOT IDENTIFIED. EXTRATHYROIDAL EXTENSION IS NOT IDENTIFIED. SURGICAL MARGINS ARE NEGATIVE FOR TUMOR. [facility] CLASSIFICATION (8TH EDITION) [id number]. SEE SYNOPTIC REPORT. PART B LEFT LOBE OF THYROID, HEMITHYROIDECTOMY (6.0 GRAMS): THYROID WITHOUT SIGNIFICANT HISTOPATHOLOGIC ALTERATION. NEGATIVE FOR MALIGNANCY. Signing Pathologist Direct Phone Line: [phone] SYNOPTIC REPORT THYROID GLAND(Thyroid - [facility] All Specimens) [facility] 8th Edition - Protocol posted: 10/12/2018 [...] (pT):pT1a Regional Lymph Nodes (pN):pNX CPT Code(s) 87485I8 [facility] CLINICAL HISTORY Malignant neoplasm of thyroid [facility] gland [facility] SPECIMEN SOURCE A. RIGHT LOBE OF THYROID; B. [facility] LEFT LOBE OF THYROID. [facility] GROSS DESCRIPTION The case has two parts. [facility] A. Received in formalin [facility] labeled with the patient's name, accession [...] cut surface is red and finely granular. Dramatic Teacher sections to include the entire nodule are submitted as follows; Section code: [id number] nodule, lower pole A3-uninvolved thyroid, upper pole [...] surface. No discrete lesions are grossly appreciated. Dramatic Teacher sections to include the entire nodule are submitted as follows; Section code: B1-upper pole B2-B3-mid pole B4-B5-lower pole PA/ew MICROSCOPIC DESCRIPTION Performed. [facility] Gross assessment was [facility] performed at [place], Department of [facility] TER Pathology, [address] [place] [id number], Technical component was [facility][note 2] performed at [place], Department of [facility] TER Pathology, [address] [place] [address], Professional component [facility][note 2] was performed at [place], Department of [facility] TER Pathology, [address] [place] [id number], Specimen Tissue - Thyroid, Right Tissue - Thyroid, Left Performing Organization Address City/State/Zipcode Ph one Number [place] [phone] [facility] * Prothrombin time/INR (07/05/2019 4:34 PM TIME STAMP ASSEMBLER) Protime 13.1 11.9 - 14.2 seconds [facility] INR 1.0 <=5.9 [facility] Specimen Blood Narrative Performed At RECOMMENDED COUMADIN/WARFARIN INR THERAPY RANGES [facility] STANDARD DOSE: 2.0 - 3.0 Includes: PROPHYLAXIS fo r venous thrombosis, [facility] systemic embolization; TREATMENT for ve nous thrombosis and/or pulmonary embolus. HIGH RISK: Target INR is 2.5-3.5 for pa tients with mechanical heart valves. Performing Organization Address City/[facility] one Number [address] [facility] * Platelet count (07/05/2019 4:34 PM TIME STAMP ASSEMBLER) Platelets 204 150 - 450 K/CU MM [facility] Specimen Blood Performing Organization Address [facility] one Number [address] [facility] * Hemoglobin (07/05/2019 4:34 PM TIME STAMP ASSEMBLER) Hemoglobin 13.2 11.2 - 15.7 GM/DL [facility] Specimen Blood Performing Organization Address [facility] one Number [address] [facility] after 04/16/2019 Insurance Payer Benefit Subscriber ID Type Phone Address Plan / Group [employer] - [employer] CARE [employer] xxxxxxxxxxx HMO/POS HMO/POS/OP EN ACCESS [phone] Advance Directives For more information, please contact: [address] [phone] Date Inactivated Comments Code Status Date Activated 07/12/2019 12:45 PM Full Code 07/11/2019 1:38 PM This code status was determined by: Patient
--- OUTSIDE RECORDS SUMMARY | 2020-04-16 16:29 | XMS REPORT | Continuity of Care Document ---
Author Author [facility] t Organization [facility] t Address [address] [place] [address] Phone Unavailable Care Team Providers Care Recovery Room Rn Name Role Phone MD Kadeem HERNANDEZ MD PCP Neena ORR Attphys Unavailable Neena THEODORE Attphys Unavailable Emily Vang MD Attphys EMILY VANG Attphys Unavailable Cheryl LUNDBERG, Pat Mcfadden Attphys [phone] Russell LUNDBERG, Darien Warren Attphys Unavailable Carmine DUNLAP Attphys Unavailable Kadeem HERNANDEZ Attphys Unavailable DYLAN ARTIS Attphys Unavailable Dena CHADWICK Attphys Unavailable NATHAN, S MIKALA Attphys Unavailable ZECarmine MARRERO Attphys Unavailable yTlor PERSAUD Attphys Unavailable Priscila PRUITT Attphys Unavailable Elena GRIFFIN Attphys Unavailable EMILY VANG Admphys Unavailable Kadeem HERNANDEZ Admphys Unavailable Payers Payer Name Policy Type Policy Number Effective Date Expiration Date Martell elizabeth Cigna Hmo [id number] 2019 00:00:00 [facility] CIGNA - MGD CARECIGNA HMO/POS/OPEN ACCESSxxxxxxxxxxxHMO/POS xxxxxxxxxxx [facility] Self Pay NA [facility] Cigna Ppo [id number] 2018 00:00:00 [facility] Problems Condition Name Condition Details Condition Category Status Onset Date Resolution Date Last Treatment Date Treating Clinician Comments Source Thyroid cancer Thyroid cancer Disease Active 2019-07-11 00:00:00 [facility] TIA (transient ischemic attack) TIA (transient ischemic attack) Pro blem Active 2015-04-23 00:00:00 [facility] Chest pain Chest pain Problem Active C [facility] Allergies, Adverse Reactions, Alerts Allergy Name Allergy Type Status Severity Reaction(s) Onset Date Inacti ve Date Treating Clinician Comments Source Morphine Propensity to adverse reactions Active Hives 2019-06 00:00:00 [facility] morphine DA Active [place] 2019-02-08 00:00:00 [facility] Morphine Allergy to substance Active Mild HIVES 2018-12-02 00:00:00 [facility] morphine DA Active [place] 2016-07-07 00:00:00 [facility] Social History Social Habit Start Date Stop Date Quantity Comments Source History SDOH Alcohol Std Drinks [facility] History SDOH Alcohol Binge [facility] Sex Assigned At [facility] History SDOH Alcohol Frequency 2019-07-05 00:00:00 2019-07-05 00:00:0 0 1 [facility] Smoking Status Start Date Stop Date Source Never smoker [facility] Medications Ordered Medication Name Filled Medication Name Start Date Stop Da te Current Medication? Ordering Clinician Indication Dosage Frequency Signature (SIG) Comments Components Source Azithromycin (Z-Foster) 250 Mg TABLET Azithromycin (Z-Foster) 250 Mg TABLET 2020-01-14 02:59:00 Yes 250 Use As Directed for Infection [facility] Naproxen Naproxen 2020-01-14 02:57:00 Yes 500 Twice A Day for Muscle Pain And Inflammation [facility] Methocarbamol (Robaxin-750) 750 Mg TABLET Methocarbamo l (Robaxin-750) 750 Mg TABLET 2020-01-14 02:55:00 Yes Every 8 Hours for Muscle Pain [facility] calcitriol (ROCALTROL) 0.25 MCG capsule 2019-07-11 06:54:31 Yes .25ug Q.5D Take 0.25 mcg by mouth 2 (two) times daily. [facility] calcium carbonate (CALCIUM 500 ORAL) 2019-07-11 06:54: 28 2019-07-11 00:00:00 No Take by mouth. [facility] gabapentin (NEURONTIN) 300 MG capsule 2019-07-05 16:14:36 Yes 300mg Q.5D Take 300 mg by mouth 2 (two) times daily. [facility] acetaminophen-codeine (TYLENOL #3) 300-30 mg per tablet 2019-07-05 16:14:36 Yes 1{tbl} Take 1 tablet b y mouth every 4 (four) hours as needed for Pain. [facility] Omeprazole Omeprazole 2018-10-20 00:40:00 Yes 1 Quynh ly [facility] Ketorolac Tromethamine (Toradol) 10 Mg TABLET Ketorola c Tromethamine (Toradol) 10 Mg TABLET 2018-10-20 00:15:00 Yes 10 Every 8 Maurilio rs for Pain [facility] Acetaminophen With Codeine (Tylenol With Codeine #3 Ta blet) 1 Each TABLET Acetaminophen With Codeine (Tylenol With Codeine #3 Tablet) 1 Each TABLET Yes 300 Three Times A Day as needed for Prn [facility] Albuterol Sulfate (Proair Hfa Inhaler*) 8.5 Gm INH Alb uterol Sulfate (Proair Hfa Inhaler*) 8.5 Gm INH Yes 2 Vijaya ry 4 Hours as needed for Shortness Of Breath [facility] D-Methorphan Hb/P-Epd Hcl/Bpm (Bromfed Dm Cough Syrup) 118 Ml SYRUP D-Methorphan Hb/P-Epd Hcl/Bpm (Bromfed Dm Cough Syrup) 118 Ml SYRUP Yes 10 Every 6 Hours [facility] Gabapentin Gabapentin Yes 300 Three Times A Day [facility] Methylprednisolone (Medrol) 4 Mg TABLET Methylprednisolone ( Medrol) 4 Mg TABLET Yes 4 Use As Directed C [facility] Fenofibrate Nanocrystallized (Fenofibrate) 145 Mg TABL ET Fenofibrate Nanocrystallized (Fenofibrate) 145 Mg TABLET 2019-05-21 00:00:00 No 160 Daily [facility] Sucralfate Sucralfate 2019-05-21 00:00:00 No 1 Thr ee Times A Day [facility] Pantoprazole Sodium (Protonix) 40 Mg TABLET. Pantopr azole Sodium (Protonix) 40 Mg TABLET. 2018-06-27 00:00:00 No 40 Daily [facility] Aspirin (Aspir 81) 81 Mg TABLET. Aspirin (Aspir 81) 81 Mg TABL ET. 2018-06-02 00:00:00 No 81 [facility] Atorvastatin Calcium (Lipitor) 20 Mg TABLET Atorvastat in Calcium (Lipitor) 20 Mg TABLET 2018-06-02 00:00:00 No 20 Daily [facility] Cetirizine Hcl Cetirizine Hcl 2018-06-02 00:00:00 No 10 Daily [facility] Ferrous Sulfate Ferrous Sulfate 2018-06-02 00:00:00 No 325 Daily [facility] Ibuprofen Ibuprofen 2018-06-02 00:00:00 No 400 As Ne eded [facility] Brompheniramin/Pe/Dextromethor (Cold & Cough Elixir) 1 18 Ml SOLUTION Brompheniramin/Pe/Dextromethor (Cold & Cough Elixir) 118 Ml SOLUTION 2017-07-02 00:00:00 No [facility] Acyclovir Acyclovir 2017-06-07 00:00:00 No 400 Daily [facility] Gabapentin Gabapentin 2017-06-07 00:00:00 No Twi ce A Day [facility] Tramadol Hcl (Ultram) 50 Mg TABLET Tramadol Hcl (Ultram) 50 Mg T ABLET 2017-06-07 00:00:00 No 50 Every 6 Hours as nee ded for Pain [facility] Vital Signs Vital Name Observation Time Observation Value Comments Source Body Temperature 2020-01-16 20:18:00 98.8 [degF] [facility] Weight 2020-01-16 18:47:00 145 [lb_av] [facility] BMI (Body Mass Index) 2020-01-16 18:47:00 30.3 kg/m2 [facility] Weight 2020 23:40:00 145 [lb_av] [facility] BMI (Body Mass Index) 2020 23:40:00 30.3 kg/m2 [facility] Systolic blood pressure 2019-07-12 08:48:00 140 mm[Hg] [facility] Diastolic blood pressure 2019-07-12 08:48:00 67 mm[Hg] [facility] Heart rate 2019-07-12 08:48:00 52 /min [facility] Body temperature 2019-07-12 08:48:00 36.11 Kathy [facility] Respiratory rate 2019-07-12 08:48:00 18 /min [facility] Oxygen saturation in Arterial blood by Pulse oximetry 2018-08 08:48:00 98 /min [facility] Body height 2019-07-11 06:20:00 147.3 cm [facility] Body weight Measured 2019-07-11 06:20:00 63.186 kg [facility] BMI 2019-07-11 06:20:00 29.11 kg/m2 [facility] Body Temperature 2019-05-22 12:00:00 97.0 [degF] [facility] Procedures Procedure Date / Time Performed Performing Clinician [facility] maninder Computed tomography of abdomen and pelvis with contrast 2019 00:00:00 BULMARO THEODORE [facility] CALCIUM 2019-07-17 11:28:00 Fareed Vang [facility] CALCIUM, IONIZED 2019-07-12 08:40:00 Vang, [facility] CALCIUM, IONIZED 2019-07-11 21:47:00 Taj [facility] CALCIUM, IONIZED 2019-07-11 11:12:00 Taj [facility] PTH, INTACT 2019-07-11 11:12:00 Fareed Vang [facility] TISSUE EXAM 2019-07-11 09:47:00 Taj [facility] THYROIDECTOMY,TOTAL 2019-07-11 07:30:00 Taj Fareed [facility] PROCEDURE W/ NIMS 2019-07-11 07:30:00 Taj [facility] HEMOGLOBIN 2019-07-05 16:34:[address] [facility] PROTHROMBIN TIME/INR 2019-07-05 16:34:00 Kelvin Sanchez [facility] PLATELET COUNT 2019-07-05 16:34:[address] [facility] Plan of Care Planned Activity Planned Date Details Comments Source Instructions [facility] Encounters Start Date/Time End Date/Time Encounter Type Admission Type [facility] Facility Care Department Encounter ID Source 2020-01-16 18:40:00 2020-01-16 20:22:00 Departed Emergency Room [facility] [id number] [facility] dical [place] 2020 23:11:00 2020-01-14 03:15:00 Departed Emergency Room 1 CLAYTON ORR [facility] [id number] [facility] 2019-12-04 07:18:00 2019-12-04 10:11:00 Departed Emergency Room 1 BULMARO THEODORE [facility] [id number] [facility] 2019-06-19 09:23:00 2019-06-19 09:23:00 Registered Clinic 3 STEPHANE ALICEA [facility] [id number] [facility] 2019-05-20 19:49:00 2019-05-22 14:44:00 Discharged Inpatient (obs) 1 CIRO HERNANDEZ [facility] [id number] [facility] 2019-04-23 11:42:00 2019-04-23 13:56:00 Departed Emergency Room 1 DYLAN ARTIS [facility] [id number] [facility] 2019-02-22 04:24:00 2019-02-22 06:08:00 Departed Emergency Room 1 ANN CHADWICK [facility] [id number] [facility] 2018-12-02 09:49:00 2018-12-02 14:30:00 Departed Emergency Room 1 MIKALA EVANS [facility] [id number] [facility] 2018-10-20 06:36:00 2018-10-23 17:21:00 Discharged Inpatient (obs) 1 CIRO HERNANDEZ [facility] [id number] [facility] 2018-10-20 00:06:00 2018-10-20 01:53:00 Departed Emergency Room 1 CARLEEN ALBERT [facility] [id number] [facility] 2018-07-04 11:47:00 2018-07-04 11:47:00 Registered Clinic 3 LIZZIE GASTON CIRO [facility] [id number] [facility] 2018-06-29 10:24:00 2018-06-29 10:24:00 Registered Surgical Day Care [facility] [id number] [facility] 2018-06-02 17:38:00 2018-06-05 13:27:00 Discharged Inpatient (obs) 9 MARY CIRO [facility] [id number] [facility] 2018-05-03 16:59:00 2018-05-03 21:58:00 Departed Emergency Room 1 DARREN PERSAUD [facility] [id number] [facility] 2018-01-14 14:52:00 2018-01-14 18:17:00 Departed Emergency Room [facility] [id number] [facility] 2017-10-02 00:22:00 2017-10-02 03:38:00 Departed Emergency Room ER ANN CHADWICK [facility] [id number] [facility] 2017-07-26 19:54:00 2017-07-28 10:35:00 Discharged Inpatient (obs) ER DYLAN PRUITT [facility] [id number] [facility] 2017-07-01 05:24:00 2017-07-02 11:20:00 Discharged Inpatient (obs) ER BULMARO THEODORE [facility] [id number] [facility] 2017-06-07 06:42:00 2017-06-07 09:18:00 Departed Emergency Room ER HELEN GRIFFIN [facility] [id number] [facility] Results Test Description Test Time Test Comments Results Result Comments Source CT CHEST W/O CONTRAST-HOPD 2020-01-14 01:30:00 [facility] [address] [place] [address] Patient Name: SASHA POPE MR #: [id number] : 1965 Age/Sex: 55/F Req #: [id number] Adm Physician: Ordered by: CLAYTON ORR MD Report #: [id number] Location: [facility] Room/Bed: Procedure: [id number] HOPD/CT CHEST W/O CONTRAST-HOPD Exam Date: Exam [...] ORR MD CT ABDOMEN/PELVIS W 2019-12-04 09:41:00 [place] [address] Patient Name: SASHA POPE MR #: [id number] : 1965 Age/Sex: 54/F Req #: [id number] Adm Physician: Ordered by: BULMARO THEODORE MD Report #: [id number] Location: ER Room/Bed: Procedure: [id number] CT/CT ABDOMEN/PELVIS W Exam Date: 12/04/19 Exam [...] WBC (test code = 5821-4) 0-5 0-5 [facility] [id number] 08:32:00* Test Item Value Reference Range Interpretation Comments Urine RBC (test code = 63942-7) NONE 0-5 [facility] [id number] 08:32:00* Test Item Value Reference Range Interpretation Comments Urine Bacteria (test code = 57711-0) FEW NONE [facility] Epithelial [id number] 08:32:00 * Test Item Value Reference Range Interpretation Comments Urine Epithelial Cells (test code = 53803-7) FEW NONE [facility] [id number] 08:18:00* Test Item Value Reference Range Interpretation Comments Sodium Level (test code = 2951-2) 140 136-145 [facility]Potassium [id number] 08:18:00* Test Item Value Reference Range Interpretation Comments Potassium Level (test code = 2823-3) 4.0 3.5-5.1 [facility] HospitalChloride [id number] 08:18:00* Test Item Value Reference Range Interpretation Comments Chloride Level (test code = 2075-0) 106 98-107 [facility] HospitalCarbon Dioxide [id number] 08:18:00* Test Item Value Reference Range Interpretation Comments Carbon Dioxide Level (test code = 2028-9) 27 22-29 [facility] HospitalAnion [id number] 08:18:00* Test Item Value Reference Range Interpretation Comments Anion Gap (test code = 50845-5) 11.0 8-16 [facility] HospitalBlood Urea Nqvqgxdz5061-11-01 08:18:00* Test Item Value Reference Range Interpretation Comments Blood Urea Nitrogen (test code = 3094-0) 19 7-26 [facility] HospitalCreatinine2020-04-20 08:18:00* Test Item Value Reference Range Interpretation Comments Creatinine (test code = 2160-0) 0.71 0.57-1.11 [facility] HospitalBUN/Creatinine Kgxgv1999-30-81 08:18:00* Test Item Value Reference Range Interpretation Comments BUN/Creatinine Ratio (test code = 3097-3) 27 6-25 H [facility] HospitalEstimat Glomerular Filtration Rate 2019-12-04 08:18:00* Test Item Value Reference Range Interpretation Comments Estimat Glomerular Filtration Rate (test code = 347556390) > 60 >60 Ranges were taken from the National Kidney Disease Education Program and the [facility] literature.Reference ranges:60 or greater: Fmhhok06-50 ( for 3 consecutive months): Chronic kidney disease 15 or less: Kidney failureRio Grande Regional HospitalGlucose Jipzg7481-39-36 08:18:00* Test Item Value Reference Range Interpretation Comments Glucose Level (test code = GPP6318) 92 74-118 [facility] HospitalCalcium [id number] 08:18:00* Test Item Value Reference Range Interpretation Comments Calcium Level (test code = 69462-2) 9.3 8.4-10.2 [facility] HospitalTotal Idnropjfl8566-93-11 08:18:00* Test Item Value Reference Range Interpretation Comments Total Bilirubin (test code = 1975-2) 0.3 0.2-1.2 [facility] HospitalAspartate Amino Transf (AST/SGOT) 2019-12-04 08:18:00* Test Item Value Reference Range Interpretation Comments Aspartate Amino Transf (AST/SGOT) (test code = Aspartate Amino Transf (AST/SGOT)) 52 5-34 H [facility] HospitalAlanine Aminotransferase (ALT/SGPT) 2019-12-04 08:18:00* Test Item Value Reference Range Interpretation Comments Alanine Aminotransferase (ALT/SGPT) (test code = 1742-6) 80 0-55 H [facility] HospitalTotal Ggnyujm4648-31-45 08:18:00* Test Item Value Reference Range Interpretation Comments Total Protein (test code = 2885-2) 7.3 6.5-8.1 [facility] HospitalAlbumin2020-04-20 08:18:00* Test Item Value Reference Range Interpretation Comments Albumin (test code = 1751-7) 3.3 3.5-5.0 L [facility] HospitalGlobulin2020-04-20 08:18:00* Test Item Value Reference Range Interpretation Comments Globulin (test code = 73059-0) 4.0 2.3-3.5 H [facility] HospitalAlbumin/Globulin [id number] 08:18:00 * Test Item Value Reference Range Interpretation Comments Albumin/Globulin Ratio (test code = 1759-0) 0.8 0.8-2.0 [facility] HospitalAlkaline Mmndypdgwzv2331-25-73 08:18:00* Test Item Value Reference Range Interpretation Comments Alkaline Phosphatase (test code = 6768-6) 83 40-150 [facility] HospitalUrine Rzeqh9857-63-58 08:16:00* Test Item Value Reference Range Interpretation Comments Urine Color (test code = 5778-6) YELLOW YELLOW [facility] HospitalU[facility] Eosompk1632-73-72 08:16:00* Test Item Value Reference Range Interpretation Comments Urine Clarity (test code = 69489-1) CLEAR CLEAR [facility] HospitalU[facility] Specific Gvdjrod7245-26-44 08:16:00 * Test Item Value Reference Range Interpretation Comments Urine Specific [place]ane (test code = 5811-5) 1.020 1.010-1.02 5 [facility] HospitalU[facility] [id number] 08:16:00* Test Item Value Reference Range Interpretation Comments Urine pH (test code = 23919-4) 6 5-7 [facility] Leukocyte Ucgbviyu4007-89-07 08:16:00* Test Item Value Reference Range Interpretation Comments Urine Leukocyte Esterase (test code = 5799-2) NEGATIVE NEGATIVE [facility] HospitalU[facility] Asupuxb8071-92-45 08:16:00* Test Item Value Reference Range Interpretation Comments Urine Nitrite (test code = 35442-7) NEGATIVE NEGATIVE [facility] Hospital[facility] Sxpdcvp4152-07-58 08:16:00* Test Item Value Reference Range Interpretation Comments Urine Protein (test code = 5804-0) NEGATIVE NEGATIVE [facility] HospitalU[facility] Glucose (UA)2019-12-04 08:16:00* Test Item Value Reference Range Interpretation Comments Urine Glucose (UA) (test code = 2349-9) NEGATIVE NEGATIVE [facility] HospitalU[facility] Dbtzfyi5981-96-15 08:16:00* Test Item Value Reference Range Interpretation Comments Urine Ketones (test code = 75981-7) NEGATIVE NEGATIVE [facility] HospitalU[facility] Lpicvnccngvx2383-02-70 08:16:00* Test Item Value Reference Range Interpretation Comments Urine Urobilinogen (test code = 80489-1) 0.2 0.2-1 [facility] Hospital[facility] Ehqjftiws3919-27-66 08:16:00* Test Item Value Reference Range Interpretation Comments Urine Bilirubin (test code = 1978-6) NEGATIVE NEGATIVE [facility] HospitalU[facility] Llqbv4280-33-17 08:16:00* Test Item Value Reference Range Interpretation Comments Urine Blood (test code = 27899-8) NEGATIVE NEGATIVE [facility] HospitalWhite Blood Eypda6626-59-40 07:57:00* Test Item Value Reference Range Interpretation Comments White Blood Count (test code = 6690-2) 7.29 4.8-10.8 [facility] HospitalRed Blood Oxxmi5983-82-77 07:57:00* Test Item Value Reference Range Interpretation Comments Red Blood Count (test code = 789-8) 4.38 3.6-5.1 [facility] HospitalHemoglobin2020-04-20 07:57:00* Test Item Value Reference Range Interpretation Comments Hemoglobin (test code = 93917-9) 12.6 12.0-16.0 [facility] HospitalHematocrit2020-04-20 07:57:00* Test Item Value Reference Range Interpretation Comments Hematocrit (test code = 4544-3) 38.2 34.2-44.1 [facility] HospitalMean Corpuscular Skshad8452-18-19 07:57:00* Test Item Value Reference Range Interpretation Comments Mean Corpuscular Volume (test code = 787-2) 87.2 81-99 [facility] HospitalMean Corpuscular Qnsuduwrjg3402-90-36 07:57:00* Test Item Value Reference Range Interpretation Comments Mean Corpuscular Hemoglobin (test code = 785-6) 28.8 28-32 [facility] HospitalMean Corpuscular Hemoglobin Concent 2019-12-04 07:57:00* Test Item Value Reference Range Interpretation Comments Mean Corpuscular Hemoglobin Concent (test code = 786-4) 33.0 31-35 [facility] HospitalRed Cell Distribution Pfrni9717-38-18 07:57:00* Test Item Value Reference Range Interpretation Comments Red Cell Distribution Width (test code = 66346-5) 13.2 11.7 -14.4 [facility] HospitalPlatelet Qinkq7445-48-75 07:57:00* Test Item Value Reference Range Interpretation Comments Platelet Count (test code = 777-3) 201 140-360 [facility] HospitalNeutrophils (%) (Auto)2019-12-04 07:57:00 * Test Item Value Reference Range Interpretation Comments Neutrophils (%) (Auto) (test code = 73741-3) 51.3 38.7-80.0 [facility] HospitalLymphocytes (%) (Auto)2019-12-04 07:57:00 * Test Item Value Reference Range Interpretation Comments Lymphocytes (%) (Auto) (test code = 736-9) 37.9 18.0-39.1 [facility] HospitalMonocytes (%) (Auto)2019-12-04 07:57:00* Test Item Value Reference Range Interpretation Comments Monocytes (%) (Auto) (test code = 5905-5) 6.9 4.4-11.3 [facility] HospitalEosinophils (%) (Auto)2019-12-04 07:57:00 * Test Item Value Reference Range Interpretation Comments Eosinophils (%) (Auto) (test code = 713-8) 3.3 0.0-6.0 [facility] HospitalBasophils (%) (Auto)2019-12-04 07:57:00* Test Item Value Reference Range Interpretation Comments Basophils (%) (Auto) (test code = 706-2) 0.3 0.0-1.0 [facility] HospitalIM GRANULOCYTES %2019-12-04 07:57:00* Test Item Value Reference Range Interpretation Comments IM GRANULOCYTES % (test code = IM GRANULOCYTES %) 0.3 0.0- 1.0 [facility] HospitalNeutrophils # (Auto)2019-12-04 07:57:00* Test Item Value Reference Range Interpretation Comments Neutrophils # (Auto) (test code = 751-8) 3.8 2.1-6.9 [facility] HospitalLymphocytes # (Auto)2019-12-04 07:57:00* Test Item Value Reference Range Interpretation Comments Lymphocytes # (Auto) (test code = 45463-4) 2.8 1.0-3.2 [facility] HospitalMonocytes # (Auto)2019-12-04 07:57:00* Test Item Value Reference Range Interpretation Comments Monocytes # (Auto) (test code = 742-7) 0.5 0.2-0.8 [facility] HospitalEosinophils # (Auto)2019-12-04 07:57:00* Test Item Value Reference Range Interpretation Comments Eosinophils # (Auto) (test code = 711-2) 0.2 0.0-0.4 [facility] HospitalBasophils # (Auto)2019-12-04 07:57:00* Test Item Value Reference Range Interpretation Comments Basophils # (Auto) (test code = 704-7) 0.0 0.0-0.1 [facility] HospitalAbsolute Immature Granulocyte (auto 2019-12-04 07:57:00* Test Item Value Reference Range Interpretation Comments Absolute Immature Granulocyte (auto (jesus t code = Absolute Immature Granulocyte (auto) 0.02 0-0.1 [facility] HospitalBlowat[facility] leukocytes automated count (number/volume)2019-12-04 07:34:00* Test Item Value Reference Range Interpretation Comments White Blood Count (test code = 6690-2) 7.29 4.8-10.8 [facility] erythrocytes automated count (number/volume)2019-12-04 07:34:00* Test Item Value Reference Range Interpretation Comments Red Blood Count (test code = 789-8) 4.38 3.6-5.1 [facility] hemoglobin measurement (moles/volume)2019-12-04 07:34:00* Test Item Value Reference Range Interpretation Comments Hemoglobin (test code = 22685-5) 12.6 12.0-16.0 [facility] HospitalAutomated blood hematocrit (volume fraction)2019-12-04 07:34:00* Test Item Value Reference Range Interpretation Comments Hematocrit (test code = 4544-3) 38.2 34.2-44.1 [facility] HospitalAutomated erythrocyte mean corpuscular izcvaw0145-69-43 07:34:00* Test Item Value Reference Range Interpretation Comments Mean Corpuscular Volume (test code = 787-2) 87.2 81-99 [facility] HospitalAutomated erythrocyte mean corpuscular hemoglobin (mass per erythrocyte)2019-12-04 07:34:00* Test Item Value Reference Range Interpretation Comments Mean Corpuscular Hemoglobin (test code = 785-6) 28.8 28-32 [facility] HospitalAutomated erythrocyte mean corpuscular hemoglobin concentration measurement (mass/volume)2019-12-04 07:34:00* Test Item Value Reference Range Interpretation Comments Mean Corpuscular Hemoglobin Concent (test code = 786-4) 33.0 31-35 [facility] HospitalRDW CnpGa-Vpx5401-47-20 07:34:00* Test Item Value Reference Range Interpretation Comments Red Cell Distribution Width (test code = 96123-5) 13.2 11.7 -14.4 [facility] HospitalAutomated blood platelet count (count/volume)2019-12-04 07:34:00* Test Item Value Reference Range Interpretation Comments Platelet Count (test code = 777-3) 201 140-360 [facility] HospitalAutomated blood segmented neutrophil count as percentage of total ebcabjtqsn5919-17-96 07:34:00* Test Item Value Reference Range Interpretation Comments Neutrophils (%) (Auto) (test code = 47594-0) 51.3 38.7-80.0 [facility] HospitalAutomated blood lymphocyte count as percentage ot total geuhesmnzv4098-27-23 07:34:00* Test Item Value Reference Range Interpretation Comments Lymphocytes (%) (Auto) (test code = 736-9) 37.9 18.0-39.1 [facility] HospitalAutomated blood monocyte count as percentage of total eircafjcak6440-58-13 07:34:00* Test Item Value Reference Range Interpretation Comments Monocytes (%) (Auto) (test code = 5905-5) 6.9 4.4-11.3 [facility] HospitalAutomated blood eosinophil count as percentage of total zmvmawltcf4763-98-08 07:34:00* Test Item Value Reference Range Interpretation Comments Eosinophils (%) (Auto) (test code = 713-8) 3.3 0.0-6.0 [facility] HospitalAutomated blood basophil count as percentage of total ajfnmzmolx8351-65-68 07:34:00* Test Item Value Reference Range Interpretation Comments Basophils (%) (Auto) (test code = 706-2) 0.3 0.0-1.0 [facility] HospitalFluoroscopic procedure less than one hour yhtwlxtr9529-53-52 07:34:00* Test Item Value Reference Range Interpretation Comments IM GRANULOCYTES % (test code = IM GRANULOCYTES %) 0.3 0.0- 1.0 [facility] HospitalAutomated blood neutrophil count 2019-12-04 07:34:00* Test Item Value Reference Range Interpretation Comments Neutrophils # (Auto) (test code = 751-8) 3.8 2.1-6.9 [facility] HospitalBlood lymphocytes count (number/volume) 2019-12-04 07:34:00* Test Item Value Reference Range Interpretation Comments Lymphocytes # (Auto) (test code = 63783-3) 2.8 1.0-3.2 [facility] HospitalBlood monocytes automated count (number/volume)2019-12-04 07:34:00* Test Item Value Reference Range Interpretation Comments Monocytes # (Auto) (test code = 742-7) 0.5 0.2-0.8 [facility] HospitalAutomated blood eosinophil count 2019-12-04 07:34:00* Test Item Value Reference Range Interpretation Comments Eosinophils # (Auto) (test code = 711-2) 0.2 0.0-0.4 [facility] HospitalAutomated blood basophil count (count/volume)2019-12-04 07:34:00* Test Item Value Reference Range Interpretation Comments Basophils # (Auto) (test code = 704-7) 0.0 0.0-0.1 [facility] HospitalFluoroscopic procedure less than one hour karjelrp3686-05-31 07:34:00* Test Item Value Reference Range Interpretation Comments Absolute Immature Granulocyte (auto (jesus t code = Absolute Immature Granulocyte (auto) 0.02 0-0.1 [facility] HospitalUrine color vuxxbhaqqelph4287-43-45 07:34:00* Test Item Value Reference Range Interpretation Comments Urine Color (test code = 5778-6) YELLOW YELLOW [facility] HospitalUrine piqxsca8127-05-55 07:34:00* Test Item Value Reference Range Interpretation Comments Urine Clarity (test code = 55624-9) CLEAR CLEAR [facility]pecific gravity of Urine by Test strip 2019-12-04 07:34:00* Test Item Value Reference Range Interpretation Comments Urine Specific Deane (test code = 5811-5) 1.020 1.010-1.02 5 [facility] HospitalUrine pH measurement by automated test apcsc8241-28-87 07:34:00* Test Item Value Reference Range Interpretation Comments Urine pH (test code = 51851-5) 6 5-7 [facility] HospitalUrine leukocyte esterase detection by tgrxrucf0720-20-30 07:34:00* Test Item Value Reference Range Interpretation Comments Urine Leukocyte Esterase (test code = 5799-2) NEGATIVE NEGATIVE [facility] HospitalUrine nitrite akvsqarct1462-70-58 07:34:00* Test Item Value Reference Range Interpretation Comments Urine Nitrite (test code = 91792-4) NEGATIVE NEGATIVE [facility] HospitalUrine protein measurement by test strip (mass/volume)2019-12-04 07:34:00* Test Item Value Reference Range Interpretation Comments Urine Protein (test code = 5804-0) NEGATIVE NEGATIVE [facility] HospitalUrine glucose ufwobpwlp0707-21-81 07:34:00* Test Item Value Reference Range Interpretation Comments Urine Glucose (UA) (test code = 2349-9) NEGATIVE NEGATIVE [facility] HospitalUrine ketones detection by automated test gvqro2754-88-43 07:34:00* Test Item Value Reference Range Interpretation Comments Urine Ketones (test code = 11848-4) NEGATIVE NEGATIVE [facility] HospitalUrine urobilinogen measurement by test strip (mass/volume)2019-12-04 07:34:00* Test Item Value Reference Range Interpretation Comments Urine Urobilinogen (test code = 03513-8) 0.2 0.2-1 [facility] HospitalUrine total bilirubin measurement (mass/volume)2019-12-04 07:34:00* Test Item Value Reference Range Interpretation Comments Urine Bilirubin (test code = 1978-6) NEGATIVE NEGATIVE [facility] HospitalUrine erythrocytes tvijvtumr0236-52-08 07:34:00* Test Item Value Reference Range Interpretation Comments Urine Blood (test code = 67444-8) NEGATIVE NEGATIVE [facility] HospitalAutomated urine sediment leukocyte count by microscopy (number/high power field)2019-12-04 07:34:00* Test Item Value Reference Range Interpretation Comments Urine WBC (test code = 5821-4) 0-5 0-5 [facility] HospitalErythrocytes detection in urine sediment by light canrszbodf0096-85-13 07:34:00* Test Item Value Reference Range Interpretation Comments Urine RBC (test code = 49796-2) NONE 0-5 [facility] HospitalBacteria detection in urine sediment by light rlvjbyeldi9405-09-04 07:34:00* Test Item Value Reference Range Interpretation Comments Urine Bacteria (test code = 51083-4) FEW NONE [facility] HospitalEpithelial cells detection in urine sediment by light cnlmeqrhpj6756-59-94 07:34:00* Test Item Value Reference Range Interpretation Comments Urine Epithelial Cells (test code = 67664-7) FEW NONE [facility] Hospitalerum or plasma sodium measurement (moles/volume)2019-12-04 07:34:00* Test Item Value Reference Range Interpretation Comments Sodium Level (test code = 2951-2) 140 136-145 [facility] Hospitalerum or plasma potassium measurement (moles/volume)2019-12-04 07:34:00* Test Item Value Reference Range Interpretation Comments Potassium Level (test code = 2823-3) 4.0 3.5-5.1 [facility] Hospitalerum or plasma chloride measurement (moles/volume)2019-12-04 07:34:00* Test Item Value Reference Range Interpretation Comments Chloride Level (test code = 2075-0) 106 98-107 [facility] Hospitalerum or plasma carbon dioxide, total measurement (moles/volume)2019-12-04 07:34:00* Test Item Value Reference Range Interpretation Comments Carbon Dioxide Level (test code = 2028-9) 27 22-29 [facility] Hospitalerum or plasma anion qgg2032-54-27 07:34:00* Test Item Value Reference Range Interpretation Comments Anion Gap (test code = 51656-2) 11.0 8-16 [facility] Hospitalerum or plasma urea nitrogen measurement (mass/volume)2019-12-04 07:34:00* Test Item Value Reference Range Interpretation Comments Blood Urea Nitrogen (test code = 3094-0) 19 7-26 [facility] Hospitalerum or plasma creatinine measurement (mass/volume)2019-12-04 07:34:00* Test Item Value Reference Range Interpretation Comments Creatinine (test code = 2160-0) 0.71 0.57-1.11 [facility] Hospitalerum or plasma urea nitrogen/creatinine mass rkytv9640-13-15 07:34:00* Test Item Value Reference Range Interpretation Comments BUN/Creatinine Ratio (test code = 3097-3) 27 6-25 [facility] HospitalEstimated glomerular filtration rate (GFR) yqczdkqcazwnp5648-88-12 07:34:00* Test Item Value Reference Range Interpretation Comments Estimat Glomerular Filtration Rate (test code = 282206634) > 60 >60 Ranges were taken from the National Kidney Disease Education Program and the [facility] literature.Reference ranges:60 or greater: Cfjhnx62-04 ( for 3 consecutive months): Chronic kidney disease 15 or less: Kidney failureR[facility] HospitalGlucose mttdccazckz2229-76-57 07:34:00* Test Item Value Reference Range Interpretation Comments Glucose Level (test code = JHJ5944) 92 74-118 [facility] Hospitalerum or plasma calcium measurement (mass/volume)2019-12-04 07:34:00* Test Item Value Reference Range Interpretation Comments Calcium Level (test code = 27861-9) 9.3 8.4-10.2 [facility] Hospitalerum or plasma total bilirubin measurement (mass/volume)2019-12-04 07:34:00* Test Item Value Reference Range Interpretation Comments Total Bilirubin (test code = 1975-2) 0.3 0.2-1.2 [facility] HospitalFluoroscopic procedure less than one hour gvgafjoy1949-30-04 07:34:00* Test Item Value Reference Range Interpretation Comments Aspartate Amino Transf (AST/SGOT) (test code = Aspartate Amino Transf (AST/SGOT)) 52 5-34 [facility] Hospitalerum or plasma alanine aminotransferase measurement (enzymatic activity/volume)2019-12-04 07:34:00* Test Item Value Reference Range Interpretation Comments Alanine Aminotransferase (ALT/SGPT) (test code = 1742-6) 80 0-55 [facility] Hospitalerum or plasma protein measurement (mass/volume)2019-12-04 07:34:00* Test Item Value Reference Range Interpretation Comments Total Protein (test code = 2885-2) 7.3 6.5-8.1 [facility] Hospitalerum or plasma albumin measurement (mass/volume)2019-12-04 07:34:00* Test Item Value Reference Range Interpretation Comments Albumin (test code = 1751-7) 3.3 3.5-5.0 [facility] HospitalPlasma globulin measurement (mass/volume) 2019-12-04 07:34:00* Test Item Value Reference Range Interpretation Comments Globulin (test code = 97721-9) 4.0 2.3-3.5 [facility] Hospitalerum or plasma albumin/globulin mass meazc4401-53-33 07:34:00* Test Item Value Reference Range Interpretation Comments Albumin/Globulin Ratio (test code = 1759-0) 0.8 0.8-2.0 [facility] Hospitalerum or plasma alkaline phosphatase measurement (enzymatic activity/volume)2019-12-04 07:34:00* Test Item Value Reference Range Interpretation Comments Alkaline Phosphatase (test code = 6768-6) 83 40-150 [facility] HospitalBlood leukocytes automated count (number/volume)2019-12-04 07:34:00* Test Item Value Reference Range Interpretation Comments White Blood Count (test code = 6690-2) 7.29 4.8-10.8 [facility] HospitalBlood erythrocytes automated count (number/volume)2019-12-04 07:34:00* Test Item Value Reference Range Interpretation Comments Red Blood Count (test code = 789-8) 4.38 3.6-5.1 [facility] HospitalBlood hemoglobin measurement (moles/volume)2019-12-04 07:34:00* Test Item Value Reference Range Interpretation Comments Hemoglobin (test code = 53348-3) 12.6 12.0-16.0 [facility] HospitalAutomated blood hematocrit (volume fraction)2019-12-04 07:34:00* Test Item Value Reference Range Interpretation Comments Hematocrit (test code = 4544-3) 38.2 34.2-44.1 [facility] HospitalAutomated erythrocyte mean corpuscular shsobz0693-00-75 07:34:00* Test Item Value Reference Range Interpretation Comments Mean Corpuscular Volume (test code = 787-2) 87.2 81-99 [facility] HospitalAutomated erythrocyte mean corpuscular hemoglobin (mass per erythrocyte)2019-12-04 07:34:00* Test Item Value Reference Range Interpretation Comments Mean Corpuscular Hemoglobin (test code = 785-6) 28.8 28-32 [facility] HospitalAutomated erythrocyte mean corpuscular hemoglobin concentration measurement (mass/volume)2019-12-04 07:34:00* Test Item Value Reference Range Interpretation Comments Mean Corpuscular Hemoglobin Concent (test code = 786-4) 33.0 31-35 [facility] HospitalRDW BidYz-Tdw3927-78-20 07:34:00* Test Item Value Reference Range Interpretation Comments Red Cell Distribution Width (test code = 82347-2) 13.2 11.7 -14.4 [facility] HospitalAutomated blood platelet count (count/volume)2019-12-04 07:34:00* Test Item Value Reference Range Interpretation Comments Platelet Count (test code = 777-3) 201 140-360 [facility] HospitalAutomated blood segmented neutrophil count as percentage of total thkyahhrnt5834-03-43 07:34:00* Test Item Value Reference Range Interpretation Comments Neutrophils (%) (Auto) (test code = 54079-3) 51.3 38.7-80.0 [facility] HospitalAutomated blood lymphocyte count as percentage ot total fjqitdmibq9653-07-52 07:34:00* Test Item Value Reference Range Interpretation Comments Lymphocytes (%) (Auto) (test code = 736-9) 37.9 18.0-39.1 [facility] HospitalAutomated blood monocyte count as percentage of total nozocwebna0981-45-43 07:34:00* Test Item Value Reference Range Interpretation Comments Monocytes (%) (Auto) (test code = 5905-5) 6.9 4.4-11.3 [facility] HospitalAutomated blood eosinophil count as percentage of total nnwkvfysne0650-08-78 07:34:00* Test Item Value Reference Range Interpretation Comments Eosinophils (%) (Auto) (test code = 713-8) 3.3 0.0-6.0 [facility] HospitalAutomated blood basophil count as percentage of total ijtphovbiq8590-08-55 07:34:00* Test Item Value Reference Range Interpretation Comments Basophils (%) (Auto) (test code = 706-2) 0.3 0.0-1.0 [facility] HospitalFluoroscopic procedure less than one hour dflaqrih3693-97-33 07:34:00* Test Item Value Reference Range Interpretation Comments IM GRANULOCYTES % (test code = IM GRANULOCYTES %) 0.3 0.0- 1.0 [facility] HospitalAutomated blood neutrophil count 2019-12-04 07:34:00* Test Item Value Reference Range Interpretation Comments Neutrophils # (Auto) (test code = 751-8) 3.8 2.1-6.9 [facility] HospitalBlood lymphocytes count (number/volume) 2019-12-04 07:34:00* Test Item Value Reference Range Interpretation Comments Lymphocytes # (Auto) (test code = 60075-3) 2.8 1.0-3.2 [facility] HospitalBlood monocytes automated count (number/volume)2019-12-04 07:34:00* Test Item Value Reference Range Interpretation Comments Monocytes # (Auto) (test code = 742-7) 0.5 0.2-0.8 [facility] HospitalAutomated blood eosinophil count 2019-12-04 07:34:00* Test Item Value Reference Range Interpretation Comments Eosinophils # (Auto) (test code = 711-2) 0.2 0.0-0.4 [facility] HospitalAutomated blood basophil count (count/volume)2019-12-04 07:34:00* Test Item Value Reference Range Interpretation Comments Basophils # (Auto) (test code = 704-7) 0.0 0.0-0.1 [facility] HospitalFluoroscopic procedure less than one hour otjnpsuh9821-23-93 07:34:00* Test Item Value Reference Range Interpretation Comments Absolute Immature Granulocyte (auto (jesus t code = Absolute Immature Granulocyte (auto) 0.02 0-0.1 [facility] HospitalUrine color foauhzhhbytrp0708-15-79 07:34:00* Test Item Value Reference Range Interpretation Comments Urine Color (test code = 5778-6) YELLOW YELLOW [facility] HospitalUrine zxbvysj4885-72-05 07:34:00* Test Item Value Reference Range Interpretation Comments Urine Clarity (test code = 14744-2) CLEAR CLEAR [facility] Hospitalpecific gravity of Urine by Test strip 2019-12-04 07:34:00* Test Item Value Reference Range Interpretation Comments Urine Specific Deane (test code = 5811-5) 1.020 1.010-1.02 5 [facility] HospitalUrine pH measurement by automated test ncciu8211-52-01 07:34:00* Test Item Value Reference Range Interpretation Comments Urine pH (test code = 21085-1) 6 5-7 [facility] HospitalUrine leukocyte esterase detection by aeczmqso5790-01-62 07:34:00* Test Item Value Reference Range Interpretation Comments Urine Leukocyte Esterase (test code = 5799-2) NEGATIVE NEGATIVE [facility] HospitalUrine nitrite asutrocdg2888-44-84 07:34:00* Test Item Value Reference Range Interpretation Comments Urine Nitrite (test code = 30695-7) NEGATIVE NEGATIVE [facility] HospitalUrine protein measurement by test strip (mass/volume)2019-12-04 07:34:00* Test Item Value Reference Range Interpretation Comments Urine Protein (test code = 5804-0) NEGATIVE NEGATIVE [facility] HospitalUrine glucose uunhxpxvl1024-62-70 07:34:00* Test Item Value Reference Range Interpretation Comments Urine Glucose (UA) (test code = 2349-9) NEGATIVE NEGATIVE [facility] HospitalUrine ketones detection by automated test pjeyg7269-76-92 07:34:00* Test Item Value Reference Range Interpretation Comments Urine Ketones (test code = 16373-8) NEGATIVE NEGATIVE [facility] HospitalUrine urobilinogen measurement by test strip (mass/volume)2019-12-04 07:34:00* Test Item Value Reference Range Interpretation Comments Urine Urobilinogen (test code = 01607-1) 0.2 0.2-1 [facility] HospitalUrine total bilirubin measurement (mass/volume)2019-12-04 07:34:00* Test Item Value Reference Range Interpretation Comments Urine Bilirubin (test code = 1978-6) NEGATIVE NEGATIVE [facility] HospitalUrine erythrocytes rqgylcrhd6797-81-72 07:34:00* Test Item Value Reference Range Interpretation Comments Urine Blood (test code = 69067-7) NEGATIVE NEGATIVE [facility] HospitalAutomated urine sediment leukocyte count by microscopy (number/high power field)2019-12-04 07:34:00* Test Item Value Reference Range Interpretation Comments Urine WBC (test code = 5821-4) 0-5 0-5 [facility] HospitalErythrocytes detection in urine sediment by light fisomjiayg7811-01-35 07:34:00* Test Item Value Reference Range Interpretation Comments Urine RBC (test code = 78634-8) NONE 0-5 [facility] HospitalBacteria detection in urine sediment by light bsvsfzapgc8959-91-59 07:34:00* Test Item Value Reference Range Interpretation Comments Urine Bacteria (test code = 02039-8) FEW NONE [facility] HospitalEpithelial cells detection in urine sediment by light ksaiwjntbh0140-78-54 07:34:00* Test Item Value Reference Range Interpretation Comments Urine Epithelial Cells (test code = 97422-4) FEW NONE [facility] Hospitalerum or plasma sodium measurement (moles/volume)2019-12-04 07:34:00* Test Item Value Reference Range Interpretation Comments Sodium Level (test code = 2951-2) 140 136-145 [facility] Hospitalerum or plasma potassium measurement (moles/volume)2019-12-04 07:34:00* Test Item Value Reference Range Interpretation Comments Potassium Level (test code = 2823-3) 4.0 3.5-5.1 [facility] Hospitalerum or plasma chloride measurement (moles/volume)2019-12-04 07:34:00* Test Item Value Reference Range Interpretation Comments Chloride Level (test code = 2075-0) 106 98-107 [facility] Hospitalerum or plasma carbon dioxide, total measurement (moles/volume)2019-12-04 07:34:00* Test Item Value Reference Range Interpretation Comments Carbon Dioxide Level (test code = 2028-9) 27 22-29 [facility] Hospitalerum or plasma anion qiz0091-89-89 07:34:00* Test Item Value Reference Range Interpretation Comments Anion Gap (test code = 95911-0) 11.0 8-16 [facility] Hospitalerum or plasma urea nitrogen measurement (mass/volume)2019-12-04 07:34:00* Test Item Value Reference Range Interpretation Comments Blood Urea Nitrogen (test code = 3094-0) 19 7-26 [facility] Hospitalerum or plasma creatinine measurement (mass/volume)2019-12-04 07:34:00* Test Item Value Reference Range Interpretation Comments Creatinine (test code = 2160-0) 0.71 0.57-1.11 [facility]erum or plasma urea nitrogen/creatinine mass mfddg7035-83-36 07:34:00* Test Item Value Reference Range Interpretation Comments BUN/Creatinine Ratio (test code = 3097-3) 27 6-25 [facility] HospitalEstimated glomerular filtration rate (GFR) bslqbdevttbty8974-62-25 07:34:00* Test Item Value Reference Range Interpretation Comments Estimat Glomerular Filtration Rate (test code = 434954302) > 60 >60 Ranges were taken from the National Kidney Disease Education Program and the [facility] literature.Reference ranges:60 or greater: Ogjett33-33 ( for 3 consecutive months): Chronic kidney disease 15 or less: Kidney failureR[facility] HospitalGlucose btfajvrpegd5942-35-73 07:34:00* Test Item Value Reference Range Interpretation Comments Glucose Level (test code = TUH3967) 92 74-118 [facility] Hospitalerum or plasma calcium measurement (mass/volume)2019-12-04 07:34:00* Test Item Value Reference Range Interpretation Comments Calcium Level (test code = 51412-1) 9.3 8.4-10.2 [facility] Hospitalerum or plasma total bilirubin measurement (mass/volume)2019-12-04 07:34:00* Test Item Value Reference Range Interpretation Comments Total Bilirubin (test code = 1975-2) 0.3 0.2-1.2 [facility] HospitalFluoroscopic procedure less than one hour eizngdxr7468-10-58 07:34:00* Test Item Value Reference Range Interpretation Comments Aspartate Amino Transf (AST/SGOT) (test code = Aspartate Amino Transf (AST/SGOT)) 52 5-34 [facility] Hospitalerum or plasma alanine aminotransferase measurement (enzymatic activity/volume)2019-12-04 07:34:00* Test Item Value Reference Range Interpretation Comments Alanine Aminotransferase (ALT/SGPT) (test code = 1742-6) 80 0-55 [facility]erum or plasma protein measurement (mass/volume)2019-12-04 07:34:00* Test Item Value Reference Range Interpretation Comments Total Protein (test code = 2885-2) 7.3 6.5-8.1 [facility]erum or plasma albumin measurement (mass/volume)2019-12-04 07:34:00* Test Item Value Reference Range Interpretation Comments Albumin (test code = 1751-7) 3.3 3.5-5.0 [facility] HospitalPlasma globulin measurement (mass/volume) 2019-12-04 07:34:00* Test Item Value Reference Range Interpretation Comments Globulin (test code = 14273-1) 4.0 2.3-3.5 [facility]erum or plasma albumin/globulin mass kkwln9865-81-96 07:34:00* Test Item Value Reference Range Interpretation Comments Albumin/Globulin Ratio (test code = 1759-0) 0.8 0.8-2.0 [facility]erum or plasma alkaline phosphatase measurement (enzymatic activity/volume)2019-12-04 07:34:00* Test Item Value Reference Range Interpretation Comments Alkaline Phosphatase (test code = 6768-6) 83 40-150 [facility] HospitalCR MAMM BILATERAL EREN CAD DIGITAL 2019-09-19 13:10:29 - SCR MAMM BILATERAL EREN CAD DIGITALBILATERAL DIGITAL SCREENING MAMMOGRAM 3D/2D WITH CAD: 09/19/2019CLINICAL: Asymptomatic. Digital breast tomosynthesis was performed in addition to routine CC and MLO views. Current mammographic images were evaluated by either a [employer] M-Vu or a [employer] ImageChecker CAD (computer aided detection system). Comparison is made to exams dated 01/06/2018 mammogram and 08/31/2013 mammogram - [facility]- . There are scattered fibroglandular tissues in both breasts. No suspicious mass, architectural distortion, malignant type calcification, or lymph node abnormality detected. Breast architecture is stable compared to prior exams.IMPRESSION: NEGATIVEThere is no mammographic evidence of malignancy. Resume annual screening mammography in one year. Cooper Carter M.D. ss/penrad:09/19/2019 13:10:29 [employer] C[employer] Developer: L[place]to De [place] , [facility]-letter sent: BIRADS 1-2 Normal Mammogram BI-RADS: 1 NegativeTissue Gyep5306-87-34 15:06:00* Test Item Value Reference Range Interpretation Comments Case Report (test code = 104) Surgical Pathology Repor t Case: [id number] Authorizing Provider: Fareed Vang MD Collected: 07/11/2019 0947 Ordering Location: [facility] PERIOPERATIVE Received: 07/11/2019 1249 SERVICES Pathologist: James Davalos MD Specimens: A) - Thyroid, Right B) - Thyroid, Left DIAGNOSIS (test code = 3220) [file] aXKo5GPULTPGFAYT1CIIMdLIWATKIYKNXnKQ5NHUxXSJ2DVCtaEM5pQASSAhsvCGAfPRlGKM7LD2SYNS LUJAvDBVLPPYEKLySzDO7uOPeQKTXNF6mEUZhAR5OCSRdGGpVbEQTjulULLT6NKB0CFZNCDYiWImOYMi HHE2mUPhZPQaVFG6KwVJWDUgFIBflGMR1cdZTtVNIJ ZXUORHpCIs9KLTSBHVPETWORX0mFIwXUKyULO5IeCCMSPsCECxkTWQ5uyEQtZPUHEthQM5CBCL3ZFlmF ZmPsPZFFZB3VX6XGLHNRKQPEHvQHDS3DFa8zfOPjMDPYH3UzP7sIE2RYQusYJBSGK97yTRaCJNLOEMbC IY6HYJNcKCTnUhhKHQ5uN6SRXVTWXe3ZIXvWCJZPHS 6AQY2xiPJqASHwavSQRNCFXVHuJMUYCGMLA8UWLR7AXRFYGXYVXEMtCSnOXPxINUgAJ1aSVNQRK55ELF i9NvJzD3QVGHYcBtraLMPoTWeKEd9QFNKAGVQVF0FWKUSKY94TEchTYK9LETkGT5BYMLZZIG1MW4wPGm ABRVTTOkDJTL1EMwjzGLTiRzKBOSIGOyUhTn6JPT9E PLaURcDOA7hgYDHcux53MXK1JkPmy5B1WVJ5LUDqEGQiw5jyLUEanLTcPoKmDfVrPbYwReojcETaRCHs DiNbx1ikz390fMYhp7unPGZlMtA5gUWuJBDbfURsS938ZHDbEGxuu6htc5OkVBLwyGIoi7Q5SHYWeyig lEd5qPaiH34tf3B4FfnbX3wgWSEhFDDcP8HqCL6lIL WrBbt1RHJ6IUJ1IIZdHYZqV7BaXT3kYWFnzGIzCEx9n7walSnsMOByEOP2m5dfCZjfjmIyEZ9ojc2beM z8v9wpyhAhVVUkTWPhzMUNFVHwZ6HngTmcUa0yfYy5pXavDdyhSFN2Nhp7CA5wop66ofw0rQxcQEKewe ddDoD7LDzbPDEhquvvWOn1NEaeBIErkKX4EYHewMDp B9MvKLReIG1fvgd7UCT2INcjCBZgZhJ2KLQcrFIqXKNecLbjZEqxv559YGL4XlHxRJ2gL3Kyo9U5lJ8k xQHrZYFitRHeMeUiCJPfso7vlWCpZLnnm3ZtVFZ1dgI8yAZbgBOxYBDkRiJ0JJzaVL6pju66PGKzQDA9 rh3vgDAzwQagkeWkqAKnLVgpK1OaWKHrs693SVOnV4 OzNOIxt8F6zmUkBsReOXJtgEC6qnX0IGKzID8fnzwky8gaLGllKIobOCXsazG7pzS9MXUsrMMwX0XjwW 0kMAPjSO8hxtwcf4obJJC6MHooSCIsDWC4PiCjBWDjf6Zpmlc7OxVqv2IccXWiPQtqC45pm661PYJvyu IuH2dgrUAuutqjyUUljrjePDofpyA2WLTcWGmuugoj NWCdEZkgH8ttPxVvXRMzuPydTAefa2FyKUCeATWyIlKttMSuNNEbLzr8DZVeaSQsLKAfCbReV0sqhnst ZsATIGKad0vwR0flvSBSqMEfP4UrUKmcmsPmLXsyHXphNEL6GMD0Jw05YsO2MBMknb77 SYNOPTIC REPORT (test code = 71) THYROID GLAND (Thyro id - All Specimens) 8th Edition - Protocol posted: 10/12/2018 : SPECIMEN Procedure: Total thyroidectomy TUMOR Tumor Focality: Unifocal : : Tumor Site : Right lobe Histologic Type: Papillary carcinoma, classic (usual, conventional) Tumor Size (Centimeters): Greatest Dimension (Centimeters): 1.0 cm Additional Dimension (Centimeters): 0.7 cm Additional Dimension (Centimeters): 0.7 cm Extrathyroidal Extension: Not identified Angioinvasion (vascular invasion): Not identified Lymphatic Invasion: Present Perineural Invasion: Not identified Margins: Uninvolved by carcinoma Distance of Invasive Carcinoma from Closest Margin (Millimeters): 1 mm LYMPH NODES Regional Lymph Nodes: No lymph nodes submitted or found PATHOLOGIC STAGE CLASSIFICATION (pTNM, AJCC 8th Edition) : Primary Tumor (pT): pT1a Regional Lymph Nodes (pN): pNX CPT Code(s) (test code = 3357) o6zvaFJcBAImrGAdQyNoLVOaLIHlj9kcECIxzHFiTpOjRrGvFeRlQymnrXUbCSDyJoHtb7gum573lQVm v7bpDSZnEaG5tBOxXQEalNArZ567d1fcb2xkwrEtaSL3EXCpBZK0OCuahoRuswA0KAuxqWBbCuO8XQqd klKuHFqkupZayhPkRwa2SDZrR427YIQ3rVejg1uxJE K4BDPuBBToNlTlHr1kdYTxX187TTCrDCNWSEQsgEv8TJAplvBurvVmcZFOz367H893l7ltSTHfffYtrK kJoxogf0mqT453LPJklHVqzsZaQdSlOBQvlFUqrWN0ZAGuYK9epvqiDvIkKY4gueljKeTyEE0wwrl3Nz CaNY4gxkaoEpZxONelJLMffeorPMDpe2NzayeeYK1l G2Cjc3J7vN5lrSEjUJAldQOmXeLbBTGtmo5jzYZzNBhuw8BeUGH0drZ7eZUbpAQaAXZiRJ85Asrsl9Kn EtkbKFQ1XSXmiaDlz2Frl0xsEgAwcyIkI0kvZ6UvGWOaYIEpPIDyDgCpgrQkl5Hnq5XngZAyuXq4t0xk TLFxRLMdbFslt9xjCSC9ZNQwO8I2xGRll9gwMTbtYS RtqTO2pyabAEfgOWLvdsM0vvpkVSeqQPPtcHW2wwyfDFvzMJCfQeR2mwhkDAzmELThHAQ1BMqyk567HV C9JHwxRgyvLWouNKIfxgKxxwTdxQvjHROpIBAcWGwqEUSpICheIDYzUDWbCtAmpJpyzWhngV4kVhUqGa TgLDgtXF8eCRAmM4iweFBoGMNzIPLdX7rkEtKleX2kkIqrHRwtdcItNNf8DgM4CFFnyDPsiC== CLINICAL HISTORY (test code = 3356) j2joxRRcHMYoxWZvCjKwWRZjCZAkn9ghZZPywNDeSjSjWvSnSjUeMrzoeNUzEOOrOkLdm0kmp980gTCt x9qhDVXhKtV4nQHrTFZngFUdL751d5nqe0igskVaaBT4STLkCBV3QLbvrvYdzbD3WAblvOIbLyD4PCbu iyTtFQrxkoGiqjKaMwc8SIIrU245HWE9lIyds7oeTJ F6RDUlHUBdApOrFv6inWTtU425AUMjACZBKIJsjJd7ZVRpwnTtviFbkECEu499V922o1dsYXKswuLclT xIinrva7tcX907XHGalQTlwhHeGfAbQEBtqORuaHX7JZDwNY2oqzfvHvGcIA1ohjmhQpEyQQ1jqpq4Iq WjVD4qrgqxFlYzEDxmTNFmpvyrXNYng0NrodzqLC4r C6Exr0U8eX1dwCOpVELrrKFiYmLiVTBuse4zqLJtYZmil2VuYYM1myC6xBUdgKZfEWJwHP59Ydlqw6Yt RjpvUEP0ZSMpyjPza9Fze9tyYdYmkdQnM2ehQ2CwVALcHELmDALxIuRtwmZis5Ags7XjjQEeaOs0k8ou CRBtZRDzmJtbt3nbQYO9RCDiR5Q8pDBbq6frUMldNP SuzDS7gbgbFYwiDLPiwlC8katdVNldKLUcnZS4fibkQVlyGSXtOhD1vldfOFjtMLVjZBS5NRrlc039MG J5VYhvUgebJBogASQretOadvXtxPazCMLsVFEbTRzxGGIbNLexUTLkPNJaRyDgrGerwNkafV2hFhBtRt FpWKzjFD0mROUsL2xlqCQmPJOyECLsF3gbTrIxzR4m sJtuXVsqntNrOQ6ezVlkiaKtrIRkXK9jwEPolUDqNeV6oOfgv6bnLMybLQ8eEYCodz3= SPECIMEN SOURCE (test code = 3377) r0scnHDgMHSvaKWfFjVsFLPfWXTal1nyXJTmqIWsKsRfKyBgTkAzGaccqZNiOVHpKcMjy4ccm635eJYx u2fyDLGoCtM1cIPbYGTyoRLbB080b7ssy3vlsdTbfDP7HIGcJQC2EKnktjLzgtV5SBdfbQZcZlT6EJqc rhUnBMkgsxGxxrQfBan3VKXvR787MAZ0pEios6cxDY H3KRKzHOXfXrCtEy0mtHVbJ966MDIeDEVKTRWdbQm2HIAaaoKzkqXimCWIf150D204e3rvOHOgolAdtW zDsiaqv5rcB020UKKmyYMjwfCoQrAoRLTefNNfdLG3JWSqSJ2wvyzuIeHzKA4yslkbTpAaJK0pbcc3Sn MnVM1gyjfqOuLfIBarFEQyexaxZARjy0GssuwqJL8p T2Jfz3J8kT4lwHVlDYKolGTdUqUmCCNzmj0sbSBhCWjuz0KmFAK2hhX6lCCriXZiVJGoLR41Wjfdz0Qg FyfzLZX8MLPjmgEsv8Sau2adBhXpgwYpM6gdZ9CxBUEhVGGhIEFoXaUfrdNau9Qwj5IohKYjuXh8i8nr WHXpHDGklObbl1kxYNQ3DPAvL7I8fQKyl5qvWDtgSU RufEO4oteyLPyjBQXhmqM1yuhyYHvzHMHhiFB2rdeqJTwmDADfKrN9hpekTKqtLOZuJPI5CJiew805JV C3IBifSictESiiDSGbwnOobaJphXcqKFEeXZJtWGswSXPbOJrbQWLtBEAzCfGmzPptaZmcwA4jFzJcZv VtHMdlMG1aFVJcQ0wttYDrSFVzIEStB7ydHgKtuX0w zRurJXnnknAzALSnDKXXP6zMLHfBHvZqR4NhTCbENd0TLIbjAl7zOLLYATGFT5TIGM2WFNKCGSYVZIPn XHBhcn0= GROSS DESCRIPTION (test code = 3366) [file] BQXrGVboEJZoTFKsIrRuvCMpTzJqTyBnmBbnsTvrCVtjYpPuIMQnXDhiA9xnWwRqGpXfZEgjKFV8 MICROSCOPIC DESCRIPTION (test code = 3371) n9jwuXRqMSTsgNKcMwKfUEKtPTUop0yjSAWtfUSsXwMgAfNsClJqInkktIMjEOXcXlYke7foo423pHBn j3pqOCIuKkO9cGSjKZAowGRbS463d1nwo8eqpyTaeIU7ZWNuBGZ1DBgckkQbywX8THionJEbHvA5KCmc vjAtTNvucpLfswFeAne5GHWkI964WCR4dQlhm6uaTI M1HADqEMUpStPuAz5hqNIjN790EHLeERRJHKXbrMq4REQrezXhdnSrdPCAd473E227t5gpZOIdgoDjeH fKtgbka7mmK195TGKeqNWnrlIpIcMjWHIafNCttPU4NYDxEL0vfznlMzQzNL7lttedAoTtKY6iuom8No LdSE3wgjhzBzXuQThlDHOozplcGFOuo8PllqmqOB0m Y5Wlq9H5nG6yvDQyDAXfyDLfErVzDVDwge2oxLHbHRcvd6JoXKH8tqX1eMAdvTUgKQOfHP47Mvbgk8Gt LilpZQB1ROOqflRcl4Jwn9wyVnOmpjJmF5pjO4CyPKHwPKHvFBRlCbFfobWqz4Tbw0QefRGzqRr6i3pl BCNaXLEpdBdgv4efUOH1OPHiP6J9xPOsl1ceLRziEA DdxEV1vgvkYEuvYLYutyU2asvpINtkUYEowKU2umrxUOfoPJNrHhS5oqacEAvqJAIpNHC8PHdpn271OU S0TCreKghvGNknYTJyvnFotjLpeTbrHDHbRCRfWXrgGQMxFHwfYJJvLKHcJiJzdKmibWzilL2mMoBlAa BvWRdmBY6pGVQsW2ilbYXlGIKwFKMhY2cwZkVjdK6bgRtqQWjnlrLnMWFyegOxxj2hSE7ksMKyvG== Gross assessment was performed at (test code = 2777) [facility], Department of Pathology, [address] [place] [address], Technical component was performed at (test code = 2778 ) [facility], Department of Pathology, [address] [place] [address], Professional component was performed at (test code = 2 779) [facility], Department of Pathology, [address] [place] [address], [facility] [id number] 15:06:00Surgical Pathology Report Case: [id number] Authorizing Provider: Fareed Vang MD Collected: 07/11/2019 0947 Ordering Location: [facility] PERIOPERATIVE Received: 07/11/2019 1249 SERVICES Pathologist: James Davalos MD Specimens: A) - Thyroid, Right B) - Thyroid, Left PART A RIGHT LOBE OF THYROID, JED THYROIDECTOMY (6.0 GRAMS):PAPILLARY THYROID CARCINOMA, CLASSIC MORPHOLOGY, 1.0 C M.THE NEOPLASM IS PRESENT IN THE RIGHT LOWER LOBE.LYMPHOVASCULAR INVASION IS NOT IDENTIFIED.EXTRATHYROIDAL EXTENSION IS NOT IDENTIFIED.SURGICAL MARGINS ARE NEGA TIVE FOR TUMOR.AJCC CLASSIFICATION (8TH EDITION) xN0nKXPS. SEE SYNOPTIC REPORT.P ART B LEFT LOBE OF THYROID, HEMITHYROIDECTOMY (6.0 GRAMS):THYROID WITHOUT SIGNIF ICANT HISTOPATHOLOGIC ALTERATION.NEGATIVE FOR MALIGNANCY. Signing Pathologi st Direct Phone Line: [phone] signed by James Davalos MD on 07/17/2019 [...] : pT1a Regional Lymph Nodes (pN): pNX [id number] neoplasm of thyroi d glandA. RIGHT LOBE [...] cut surface is red and finely granular. Merchandising Director sections to include the entire nodule are submitted as follows;Section code:A1-G7-cfjhqh nodule, lower poleA3-uninvolved thyroid, uppe r poleA4-uninvolved [...] nodule are submitted as follows;Section cod e:B1-upper oiidP7-S0-ocd nrqpS6-N9-ljktl polePA/ewPerformed.[facility], Department of Pathology, [address] [place] [address], T el [phone] [facility], [facility] of [facility]ology, [address] [place] [address], [facility], [facility], [address] [place] [address], Tel [phone] 12:50:00* Test Item Value Reference Range Interpretation Comments Calcium (test code = 20192-3) 9.9 mg/dL 8.4-10.2 Lab Interpretation (test code = 14610-0) [facility] 12:50:00* Test Item Value Reference Range Interpretation Comments CALCIUM (BEAKER) (test code = 697) 9.9 mg/dL 8.4-10.2 Calcium, Kqsovcc1664-56-92 08:49:00* Test Item Value Reference Range Interpretation Comments Calcium, Ion (test code = 1994-3) 1.19 mmol/L 1.12-1.27 pH, Blood (test code = 76277-3) 7.37 [facility], ZULPFCP0294-70-22 08:49:00* Test Item Value Reference Range Interpretation Comments CALCIUM IONIZED (BEAKER) (test code = 698) 1.19 mmol/L 1.12-1.27 PH, BLOOD (BEAKER) (test code = 1810) 7.37 CALCIUM, GMQSIDM6719-54-07 22:57:00* Test Item Value Reference Range Interpretation Comments CALCIUM IONIZED (BEAKER) (test code = 698) 1.12 mmol/L 1.12-1.27 PH, BLOOD (BEAKER) (test code = 1810) 7.38 PTH, htrptr1404-40-71 11:55:00* Test Item Value Reference Range Interpretation Comments PTH (test code = 2731-8) 64.0 pg/mL 8.5-72.5 Lab Interpretation (test code = 70616-6) [facility], RZNSLO4530-09-70 11:55:00* Test Item Value Reference Range Interpretation Comments PARATHYROID HORMONE INTACT (BEAKER) (test code = 577) 64.0 pg/mL 8.5-72.5 CALCIUM, TODKZPE8957-79-21 11:35:00* Test Item Value Reference Range Interpretation Comments CALCIUM IONIZED (BEAKER) (test code = 698) 1.08 mmol/L 1.12-1.27 L PH, BLOOD (BEAKER) (test code = 1810) 7.36 Prothrombin time/WYJ0281-12-31 17:30:00* Test Item Value Reference Range Interpretation Comments Protime (test code = 5902-2) 13.1 11.9- 14.2 seconds INR (test code = 6301-6) 1.0 <=5.9 RADHA (test code = RADHA) RECOMMENDED COUMADIN/WARFARI N INR THERAPY RANGESSTANDARD DOSE: 2.0 - 3.0 Includes: PROPHYLAXIS for venous thrombosis, systemic embolization; TREATMENT for venous thrombosis and/or pulmonary embolus.HIGH RISK: Target INR is 2.5-3.5 for patients with mechanical heart valves. Lab Interpretation (test code = 47253-3) [facility] CenterPROTHROMBIN TIME/ZKZ1167-09-16 17:30:00* Test Item Value Reference Range Interpretation Comments PROTIME (BEAKER) (test code = 759) 13.1 seconds 11.9-14.2 INR (BEAKER) (test code = 370) 1.0 <=5.9 RECOMMENDED COUMADIN/WARFARIN INR THERAPY RANGESSTANDARD DOSE: 2.0 - 3.0 Inclu lilibeth: PROPHYLAXIS for venous thrombosis, systemic embolization; TREATMENT for leatha ous thrombosis and/or pulmonary embolus.HIGH RISK: Target INR is 2.5-3.5 for pat ients with mechanical heart valves.Vcnrtldbdk4610-54-01 17:21:00* Test Item Value Reference Range Interpretation Comments Hemoglobin (test code = 786-4) 13.2 11.2- 15.7 GM/DL Lab Interpretation (test code = 89997-5) [facility] Center[facility]atelet uanet3212-94-67 17:21:00* Test Item Value Reference Range Interpretation Comments Platelets (test code = 777-3) 204 150- 450 K/CU MM Lab Interpretation (test code = 96725-2) [facility] CenterHEMOGLOBIN2019-11-20 17:21:00* Test Item Value Reference Range Interpretation Comments HEMOGLOBIN (BEAKER) (test code = 410) 13.2 GM/DL 11.2-15.7 PLATELET RIXYT8455-74-96 17:21:00* Test Item Value Reference Range Interpretation Comments PLATELET COUNT (BEAKER) (test code = 756) 204 K/CU MM 150-450 BONE and/or JOINT WHOLE SHGH8345-34-06 21:25:00 [place] [address] Patient Name: SASHA POPE MR #: [id number] : 1965 Age/Sex: 54/F Req #: [id number] Adm Physician: Ordered by: STEPHANE DUNLAP M.D. Report #: [id number] Location: [place] Room/Bed: Procedure: 1104-0 004 NM/BONE and/or JOINT [...] COPY TO: STEPHANE DUNLAP M.D. Creatine Kinase [id number] 07:17:00* Test Item Value Reference Range Interpretation Comments Creatine Kinase MB (test code = 45558-8) 1.20 0-5.0 [place] 21545019-10-07 07:17:00* Test Item Value Reference Range Interpretation Comments Troponin I (test code = ERW8148) < 0.001 0-0.300 [facility] Kinase ZT2398-09-25 07:17:00* Test Item Value Reference Range Interpretation Comments Creatine Kinase MB (test code = 55794-9) 1.20 0-5.0 [facility] H5042-38-89 07:17:00* Test Item Value Reference Range Interpretation Comments Troponin I (test code = 38531-2) < 0.001 0-0.300 [facility] HospitalCreatine Gjedpx7481-31-37 07:08:00* Test Item Value Reference Range Interpretation Comments Creatine Kinase (test code = 2157-6) 49 29-168 [facility] HospitalCreatine Spkryy8475-54-58 07:08:00* Test Item Value Reference Range Interpretation Comments Creatine Kinase (test code = 2157-6) 49 29-168 [facility]odium Kfobb7020-95-43 06:25:00* Test Item Value Reference Range Interpretation Comments Sodium Level (test code = 2951-2) 138 136-145 [facility] HospitalPotassium Unihh8379-51-52 06:25:00* Test Item Value Reference Range Interpretation Comments Potassium Level (test code = 2823-3) 4.2 3.5-5.1 [facility] HospitalChloride Gnwrc0184-73-44 06:25:00* Test Item Value Reference Range Interpretation Comments Chloride Level (test code = 2075-0) 104 98-107 [facility] HospitalCarbon Dioxide Aomau1939-19-35 06:25:00* Test Item Value Reference Range Interpretation Comments Carbon Dioxide Level (test code = 2028-9) 25 22-29 [facility] HospitalAnion Pon5112-09-16 06:25:00* Test Item Value Reference Range Interpretation Comments Anion Gap (test code = 61936-2) 13.2 8-16 [facility] HospitalBlood Urea Gsmryjbr8929-63-11 06:25:00* Test Item Value Reference Range Interpretation Comments Blood Urea Nitrogen (test code = 3094-0) 14 7-26 [facility] HospitalCreatinine2019-10-07 06:25:00* Test Item Value Reference Range Interpretation Comments Creatinine (test code = 2160-0) 0.76 0.57-1.11 [facility] HospitalBUN/Creatinine Tioqi5211-61-25 06:25:00* Test Item Value Reference Range Interpretation Comments BUN/Creatinine Ratio (test code = 3097-3) 18 6-25 [facility] HospitalEstimat Glomerular Filtration Rate 2019-05-22 06:25:00* Test Item Value Reference Range Interpretation Comments Estimat Glomerular Filtration Rate (test code = 085737007) > 60 >60 Ranges were taken from the National Kidney Disease Education Program and the [facility] literature.Reference ranges:60 or greater: Rvlbnv32-49 ( for 3 consecutive months): Chronic kidney disease 15 or less: Kidney failureRio Grande Regional HospitalGlucose Flbls2258-86-24 06:25:00* Test Item Value Reference Range Interpretation Comments Glucose Level (test code = PEM4057) 93 74-118 [facility] HospitalCalcium Weylm9116-10-85 06:25:00* Test Item Value Reference Range Interpretation Comments Calcium Level (test code = 26883-0) 9.2 8.4-10.2 [facility] HospitalTotal Itcwgrogv3410-23-36 06:25:00* Test Item Value Reference Range Interpretation Comments Total Bilirubin (test code = 1975-2) 0.2 0.2-1.2 [facility] HospitalAspartate Amino Transf (AST/SGOT) 2019-05-22 06:25:00* Test Item Value Reference Range Interpretation Comments Aspartate Amino Transf (AST/SGOT) (test code = Aspartate Amino Transf (AST/SGOT)) 53 5-34 H [facility] HospitalAlanine Aminotransferase (ALT/SGPT) 2019-05-22 06:25:00* Test Item Value Reference Range Interpretation Comments Alanine Aminotransferase (ALT/SGPT) (test code = 1742-6) 65 0-55 H [facility] HospitalTotal Okogkfw9671-04-62 06:25:00* Test Item Value Reference Range Interpretation Comments Total Protein (test code = 2885-2) 7.2 6.5-8.1 [facility] HospitalAlbumin2019-10-07 06:25:00* Test Item Value Reference Range Interpretation Comments Albumin (test code = 1751-7) 3.2 3.5-5.0 L [facility] HospitalGlobulin2019-10-07 06:25:00* Test Item Value Reference Range Interpretation Comments Globulin (test code = 95848-3) 4.0 2.3-3.5 H [facility] HospitalAlbumin/Globulin Ijeqx6709-05-26 06:25:00 * Test Item Value Reference Range Interpretation Comments Albumin/Globulin Ratio (test code = 1759-0) 0.8 0.8-2.0 [facility] HospitalAlkaline Turxfvwbysg6891-05-33 06:25:00* Test Item Value Reference Range Interpretation Comments Alkaline Phosphatase (test code = 6768-6) 79 40-150 [facility] HospitalWhite Blood Phxrw7437-03-76 06:09:00* Test Item Value Reference Range Interpretation Comments White Blood Count (test code = 6690-2) 6.07 4.8-10.8 [facility] HospitalRed Blood Mwslp7276-83-98 06:09:00* Test Item Value Reference Range Interpretation Comments Red Blood Count (test code = 789-8) 4.26 3.6-5.1 [facility] HospitalHemoglobin2019-10-07 06:09:00* Test Item Value Reference Range Interpretation Comments Hemoglobin (test code = 45391-1) 12.4 12.0-16.0 [facility] HospitalHematocrit2019-10-07 06:09:00* Test Item Value Reference Range Interpretation Comments Hematocrit (test code = 4544-3) 37.5 34.2-44.1 [facility] HospitalMean Corpuscular Odnfvv6747-65-63 06:09:00* Test Item Value Reference Range Interpretation Comments Mean Corpuscular Volume (test code = 787-2) 88.0 81-99 [facility] HospitalMean Corpuscular Osoafnhvzc7472-82-74 06:09:00* Test Item Value Reference Range Interpretation Comments Mean Corpuscular Hemoglobin (test code = 785-6) 29.1 28-32 [facility] Hemoglobin Concent 2019-05-22 06:09:00* Test Item Value Reference Range Interpretation Comments Mean Corpuscular Hemoglobin Concent (test code = 786-4) 33.1 31-35 [facility] HospitalRed Cell Distribution Edrpz6425-97-52 06:09:00* Test Item Value Reference Range Interpretation Comments Red Cell Distribution Width (test code = 82655-3) 13.6 11.7 -14.4 [facility] HospitalPlatelet Rcuzb0477-93-34 06:09:00* Test Item Value Reference Range Interpretation Comments Platelet Count (test code = 777-3) 182 140-360 [facility] HospitalNeutrophils (%) (Auto)2019-05-22 06:09:00 * Test Item Value Reference Range Interpretation Comments Neutrophils (%) (Auto) (test code = 11617-4) 49.6 38.7-80.0 [facility] HospitalLymphocytes (%) (Auto)2019-05-22 06:09:00 * Test Item Value Reference Range Interpretation Comments Lymphocytes (%) (Auto) (test code = 736-9) 37.9 18.0-39.1 [facility] HospitalMonocytes (%) (Auto)2019-05-22 06:09:00* Test Item Value Reference Range Interpretation Comments Monocytes (%) (Auto) (test code = 5905-5) 6.9 4.4-11.3 [facility] (%) (Auto)2019-05-22 06:09:00 * Test Item Value Reference Range Interpretation Comments Eosinophils (%) (Auto) (test code = 713-8) 5.1 0.0-6.0 [facility] (Auto)2019-05-22 06:09:00* Test Item Value Reference Range Interpretation Comments Basophils (%) (Auto) (test code = 706-2) 0.3 0.0-1.0 [facility]IM [facility] %2019-05-22 06:09:00* Test Item Value Reference Range Interpretation Comments IM GRANULOCYTES % (test code = IM GRANULOCYTES %) 0.2 0.0- 1.0 [facility]Neutrophils # (Auto)2019-05-22 06:09:00* Test Item Value Reference Range Interpretation Comments Neutrophils # (Auto) (test code = 751-8) 3.0 2.1-6.9 [facility]Lymphocytes # (Auto)2019-05-22 06:09:00* Test Item Value Reference Range Interpretation Comments Lymphocytes # (Auto) (test code = 00347-0) 2.3 1.0-3.2 [facility]Monocytes # (Auto)2019-05-22 06:09:00* Test Item Value Reference Range Interpretation Comments Monocytes # (Auto) (test code = 742-7) 0.4 0.2-0.8 [facility]Eosinophils # (Auto)2019-05-22 06:09:00* Test Item Value Reference Range Interpretation Comments Eosinophils # (Auto) (test code = 711-2) 0.3 0.0-0.4 [facility]Basophils # (Auto)2019-05-22 06:09:00* Test Item Value Reference Range Interpretation Comments Basophils # (Auto) (test code = 704-7) 0.0 0.0-0.1 [facility] HospitalAbsolute Immature Granulocyte (auto 2019-05-22 06:09:00* Test Item Value Reference Range Interpretation Comments Absolute Immature Granulocyte (auto (jesus t code = Absolute Immature Granulocyte (auto) 0.01 0-0.1 [facility] or plasma creatine kinase measurement (enzymatic activity/volume)2019-05-22 05:00:00* Test Item Value Reference Range Interpretation Comments Creatine Kinase (test code = 2157-6) 49 64-351 [facility] Hospitalerum or plasma creatine kinase MB measurement (mass/volume)2019-05-22 05:00:00* Test Item Value Reference Range Interpretation Comments Creatine Kinase MB (test code = 02275-1) 1.20 0-5.0 [facility] HospitalTroponin I measurement by highly sensitive enzyme cvvpfgsvmfh0353-92-62 05:00:00* Test Item Value Reference Range Interpretation Comments Troponin I (test code = 32609-1) < 0.001 0-0.300 [facility] Hospitalerum or plasma creatine kinase measurement (enzymatic activity/volume)2019-05-22 05:00:00* Test Item Value Reference Range Interpretation Comments Creatine Kinase (test code = 2157-6) 49 29-168 [facility] Hospitalerum or plasma creatine kinase MB measurement (mass/volume)2019-05-22 05:00:00* Test Item Value Reference Range Interpretation Comments Creatine Kinase MB (test code = 75608-8) 1.20 0-5.0 [facility] HospitalTroponin I measurement by highly sensitive enzyme [id number] 05:00:00* Test Item Value Reference Range Interpretation Comments Troponin I (test code = 70073-0) < 0.001 0-0.300 [facility] HospitalLDL Aentleitjfq3335-73-46 16:49:00* Test Item Value Reference Range Interpretation Comments LDL Cholesterol (test code = 2089-1) 118 60-130 [facility] Dzoqjimwbqg3559-17-51 16:49:00* Test Item Value Reference Range Interpretation Comments HDL Cholesterol (test code = 2085-9) 47 40-60 [facility] HospitalCholesterol/HDL [id number] 16:49:00 * Test Item Value Reference Range Interpretation Comments Cholesterol/HDL Ratio (test code = 9830-1) 4.3 3.0-3.6 H [facility] HospitalLDL Vinncyrhpfv0118-21-46 16:49:00* Test Item Value Reference Range Interpretation Comments LDL Cholesterol (test code = 2089-1) 118 60-130 [facility] Wtmvqtoeqst5816-81-81 16:49:00* Test Item Value Reference Range Interpretation Comments HDL Cholesterol (test code = 2085-9) 47 40-60 [facility] HospitalCholesterol/HDL Ldecg5669-91-45 16:49:00 * Test Item Value Reference Range Interpretation Comments Cholesterol/HDL Ratio (test code = 9830-1) 4.3 3.0-3.6 H [facility] HospitalB-Type Natriuretic Pusdodc2326-00-64 14:05:00* Test Item Value Reference Range Interpretation Comments B-Type Natriuretic Peptide (test code = 71704-2) 41.4 0-100 [facility] HospitalThyroid Stimulating Hormone (TSH) 2019-05-21 14:05:00* Test Item Value Reference Range Interpretation Comments Thyroid Stimulating Hormone (TSH) (test code = 21922-4) 3.405 0.350-4.940 [facility] HospitalB-Type Natriuretic Pxaagji6027-13-61 14:05:00* Test Item Value Reference Range Interpretation Comments B-Type Natriuretic Peptide (test code = 88896-9) 41.4 0-100 [facility] HospitalThyroid Stimulating Hormone (TSH) 2019-05-21 14:05:00* Test Item Value Reference Range Interpretation Comments Thyroid Stimulating Hormone (TSH) (test code = 19288-5) 3.405 0.350-4.940 [facility] - Treadmill GHDY9216-56-56 13:30:00 [facility] [address] [address] Patient Name : SASHA POPE MR #: [id number] : 1965 Age/Sex: 54/F Adm Physician : CIRO HERNANDEZ MD Admit Date : 05/20/19 Location : MED/SURG2 Room/Bed : [facility] REPORT: EXERCISE STRESS TEST DATE OF STUDY: [...] p atient at length. Questions are answered. Laura Stacy MD MOYolanda/RACHELL /[id number] Signature Date Dictated By: LAURA STACY MD Transcribed By: RACHELL on 07/24/19 < Electronically signed by LAURA STACY MD><<Signature on File>>07/28/19 1219 COPY TO: Triglycerides Foeyl0941-75-60 12:37:00* Test Item Value Reference Range Interpretation Comments Triglycerides Level (test code = 2571-8) 195 0-149 H [facility] HospitalCholesterol Daops8238-71-83 12:37:00* Test Item Value Reference Range Interpretation Comments Cholesterol Level (test code = 2093-3) 204 0-199 H Less than 200 mg/dL Low Csal005 - 239 mg/dL Borderline Puxj835 m g/dl and greater High Risk [facility] HospitalTriglycerides Jeaft7255-63-41 12:37:00* Test Item Value Reference Range Interpretation Comments Triglycerides Level (test code = 2571-8) 195 0-149 H [facility] HospitalCholesterol Hluiq8025-37-99 12:37:00* Test Item Value Reference Range Interpretation Comments Cholesterol Level (test code = 2093-3) 204 0-199 H Less than 200 mg/dL Low Nlmu059 - 239 mg/dL Borderline Jlsm143 m g/dl and greater High [facility] Hospitalerum or plasma triglyceride measurement (mass/volume)2019-05-21 09:08:00* Test Item Value Reference Range Interpretation Comments Triglycerides Level (test code = 2571-8) 195 0-149 [facility] Hospitalerum or plasma cholesterol measurement (mass/volume)2019-05-21 09:08:00* Test Item Value Reference Range Interpretation Comments Cholesterol Level (test code = 2093-3) 204 0-199 Less than 200 mg/dL Low Ykmq708 - 239 mg/dL Borderline Ouoc693 m g/dl and greater High Risk [facility] Hospitalerum or plasma cholesterol in LDL measurement (mass/volume) 2019-05-21 09:08:00* Test Item Value Reference Range Interpretation Comments LDL Cholesterol (test code = 2089-1) 118 60-130 [facility] Hospitalerum or plasma cholesterol in HDL measurement (mass/volume)2019-05-21 09:08:00* Test Item Value Reference Range Interpretation Comments HDL Cholesterol (test code = 2085-9) 47 40-60 [facility] Hospitalerum or plasma total cholesterol/cholesterol in HDL mass xjjlf3082-87-48 09:08:00* Test Item Value Reference Range Interpretation Comments Cholesterol/HDL Ratio (test code = 9830-1) 4.3 3.0-3.6 [facility] HospitalBNP Lxf-zNgh2632-03-06 09:08:00* Test Item Value Reference Range Interpretation Comments B-Type Natriuretic Peptide (test code = 18275-6) 41.4 0-100 [facility] Hospitalerum or plasma thyrotropin measurement by detection limit <= 0.005 miu/l (units/volume)2019-05-21 09:08:00* Test Item Value Reference Range Interpretation Comments Thyroid Stimulating Hormone (TSH) (test code = 86437-5) 3.405 0.350-4.940 [facility] Hospitalerum or plasma triglyceride measurement (mass/volume)2019-05-21 09:08:00* Test Item Value Reference Range Interpretation Comments Triglycerides Level (test code = 2571-8) 195 0-149 [facility] Hospitalerum or plasma cholesterol measurement (mass/volume)2019-05-21 09:08:00* Test Item Value Reference Range Interpretation Comments Cholesterol Level (test code = 2093-3) 204 0-199 Less than 200 mg/dL Low Mgws171 - 239 mg/dL Borderline Tsqk696 m g/dl and greater High [facility] Hospitalerum or plasma cholesterol in LDL measurement (mass/volume) 2019-05-21 09:08:00* Test Item Value Reference Range Interpretation Comments LDL Cholesterol (test code = 2089-1) 118 60-130 [facility] Hospitalerum or plasma cholesterol in HDL measurement (mass/volume)2019-05-21 09:08:00* Test Item Value Reference Range Interpretation Comments HDL Cholesterol (test code = 2085-9) 47 40-60 [facility] Hospitalerum or plasma total cholesterol/cholesterol in HDL mass onapo4456-33-53 09:08:00* Test Item Value Reference Range Interpretation Comments Cholesterol/HDL Ratio (test code = 9830-1) 4.3 3.0-3.6 [facility] HospitalBNP Mdx-bIxp1367-92-06 09:08:00* Test Item Value Reference Range Interpretation Comments B-Type Natriuretic Peptide (test code = 72041-7) 41.4 0-100 [facility] Hospitalerum or plasma thyrotropin measurement by detection limit <= 0.005 miu/l (units/volume)2019-05-21 09:08:00* Test Item Value Reference Range Interpretation Comments Thyroid Stimulating Hormone (TSH) (test code = 90715-7) 3.405 0.350-4.940 [facility] HospitalCT CHEST WITH DIYBINCP-BDHN9094-11-05 19:19:00 [address] [address] Patient Name: SASHA POPE MR #: [id number] : 1965 Age/Sex: 54/F Req #: [id number] Adm Physician: Ordered by: MARIA ISABEL ARIAS DO Report #: [id number] [facility] Room/Bed: Procedure: 1005-000 7 HOPD/CT CHEST [...] It is below the limits set by [facility] Radiation Protocol Committee (RPC). Dose modulation, iterative [...] By: JEWEL BANDA on 05/20/191925 COPY TO: MRAIA ISABEL ARIAS DO Urinalysis with Culture, if mstvnmjog8374-69-44 00:48:50* Test Item Value Reference Range Interpretation [...] created by rule GL_SJM_UA_MICRO_IND CT Chest w/ Wkhlgifd1002-75-63 00:21:51Patient: SASHA POPE Date/Time04/26/2019 23:21 CDTReason for ExamDyspneaReportLOCATION: [id number]: 54-year-old female, complains of dyspneaCOMMENT:Axial CT imaging [...] LSigned (Electronic Signature): 04/27/2019 0:21 amComprehensive Metabolic Xlgay9260-71-26 00:05:26* Test Item Value Reference Range Interpretation [...] A/G Ratio) 1.1 ratio N Comprehensive Metabolic Usfkp9662-88-72 00:05:26* Test Item Value Reference Range Interpretation [...] is not provided, and the patient is -Chinese, multiply by 1.212. If sex is not [...] is not provided, and the patient is -Chinese, multiply by 1.212. If sex is not [...] the National Kidney Foundation, http://nkdep.nih.gov Comprehensive Metabolic Axfli0143-90-71 00:05:26* Test Item Value Reference Range Interpretation [...] is not provided, and the patient is -Chinese, multiply by 1.212. If sex is not [...] is not provided, and the patient is -Chinese, multiply by 1.212. If sex is not [...] Kidney Foundation, http://nkdep.nih.gov CT Spine Thoracic w/ Egpkyxif6364-18-30 23:56:08Patient: SASHA POPE Date/Time04/26/2019 23:21 CDTReason for ExamRule out mets;Back painReportLOCATION: [id number]: 54-year-old female presents with back pain. Clinical [...] Signature): 04/26/2019 11:56 pmCT Spine Lumbar w/ Gcvukwsr1213-79-15 23:56:08Patient: SASHA POPE Date/Time04/26/2019 23:21 CDTReason for ExamRule out at mets;Back painReportLOCATION: [id number]: 54-year-old female presents with back pain. Clinical [...] Signature): 04/26/2019 11:56 pm Prothrombin Time and FQN1973-50-99 23:34:42* Test Item Value Reference Range Interpretation Comments Prothrombin Time (test code = Prothrombin Time) 11.7 seconds 9.8-13 .4 INR (test code = INR) 1.0 ratio 0.6-1.2 Partial Thromboplastin Lbcr7664-65-05 23:34:42* Test Item Value Reference Range Interpretation Comments Partial Thromboplastin Time (test code = Partial Throm boplastin Time) 31.30 seconds 24.39-37.25 Comprehensive Metabolic Okwul7021-08-02 22:45:31* Test Item Value Reference Range Interpretation [...] A/G Ratio) 1.1 ratio N Comprehensive Metabolic Phxvu7318-51-17 22:45:31* Test Item Value Reference Range Interpretation [...] is not provided, and the patient is -Chinese, multiply by 1.212. If sex is not [...] the National Kidney Foundation, http://nkdep.nih.gov Comprehensive Metabolic Ehtpx3425-13-28 22:45:31* Test Item Value Reference Range Interpretation [...] is not provided, and the patient is -Chinese, multiply by 1.212. If sex is not [...] is not provided, and the patient is -Chinese, multiply by 1.212. If sex is not [...] Kidney Foundation, http://nkdep.nih.gov Complete Blood Count with Nesqemodmbwo7962-71-17 22:18:35* Test Item Value Reference Range Interpretation [...] code = IPF) 0 % N Automated Fgxtgwdwdtqo6024-96-39 22:18:35* Test Item Value Reference Range Interpretation Comments Neutro Auto (test code = Neutro Auto) 58.5 % 36.0-70.0 Lymph Auto (test code = Lymph Auto) 32.2 % 12.0-44.0 Meade Auto (test code = Meade Auto) 5.7 % 0.0-11.0 Eos, Auto (test code = Eos, Auto) 2.9 % 0.0-7.0 Basophil Auto (test code = Basophil Auto) 0.5 % 0.0-2.0 Neutro Absolute (test code = Neutro Absolute) 5.0 x10 1.6-7.4 Lymph Absolute (test code = Lymph Absolute) 2.76 x10 .50-4.60 Meade Absolute (test code = Meade Absolute) .49 x10 .00-1.20 Eos Absolute (test code = Eos Absolute) 0.25 x10 0.00-0.74 Baso Absolute (test code = Baso Absolute) 0.04 x10 0.00-0.21 IG Wkqaw5269-43-53 22:18:35* Test Item Value Reference Range Interpretation Comments IG (test code = IG) 0.2 % 0.0-5.0 IG Abs (test code = IG Abs) 0 x10 N XR Chest 2 Uemqt2411-51-39 20:50:04Patient: SASHA POPE Date/Time04/26/2019 20:43 CDTReason for ExamShortness of breathReportHISTORY: Shortness of breathLocation code: A73HHTV: 2 VIEW CHEST X-RAY.COMPARISON: NoneCOMMENT: PA and lateral views are provided. No acute infiltrate or effusion is seen. Cardiomediastinal silhouette is within normal limits. No acute bony abnormalities.IMPRESSION: No acute disease. Final Dictated by: MD Umana Roman PDictated DT/TM: 04/26/2019 8:49 pmSigned by: MD Umana Roman PSigned (Electronic Signature): 04/26/2019 8:50 pmCT ABD/PEL WO RTKXBPJB-HNBB6245-61-08 13:27:00 [address] [address] Patient Name: SASHA POPE MR #: [id number] : Age/Sex: 54/F Req #: [id number] Adm Physician: Ordered by: DYLAN ARTIS MD Report #: [id number] [facility] Room/Bed: Procedure: 0908- 0004 HOPD/CT ABD/PEL WO [...] 1:34 PM Dictated By: ISHMAEL KATHLEEN MD [id number] Transcribed By: GARO on 04/23/19 5031 COPY TO: DYLAN ARTIS MD Creatine Kinase WK4320-64-55 05:43:00* Test Item Value Reference Range Interpretation Comments Creatine Kinase MB (test code = 32135-8) 1.30 0-5.0 [facility] HospitalTroponin N9371-19-26 05:43:00* Test Item Value Reference Range Interpretation Comments Troponin I (test code = GIV9831) < 0.001 0-0.300 [facility] HospitalCreatine Kinase TQ0191-13-06 05:43:00* Test Item Value Reference Range Interpretation Comments Creatine Kinase MB (test code = 16411-3) 1.30 0-5.0 [facility] HospitalTroponin F0082-52-77 05:43:00* Test Item Value Reference Range Interpretation Comments Troponin I (test code = CYZ7752) < 0.001 0-0.300 [facility] Hospitalodium Drzcl5096-95-91 05:36:00* Test Item Value Reference Range Interpretation Comments Sodium Level (test code = 2951-2) 138 136-145 [facility] HospitalPotassium Ldlho1286-68-91 05:36:00* Test Item Value Reference Range Interpretation Comments Potassium Level (test code = 2823-3) 4.0 3.5-5.1 [facility] HospitalChloride Aflsv1999-69-53 05:36:00* Test Item Value Reference Range Interpretation Comments Chloride Level (test code = 2075-0) 104 98-107 [facility] HospitalCarbon Dioxide Pllyo5351-76-92 05:36:00* Test Item Value Reference Range Interpretation Comments Carbon Dioxide Level (test code = 2028-9) 25 22-29 [facility] HospitalAnion Bsp9874-28-49 05:36:00* Test Item Value Reference Range Interpretation Comments Anion Gap (test code = 12007-7) 13.0 8-16 [facility] HospitalBlood Urea Hbyvwent5784-85-76 05:36:00* Test Item Value Reference Range Interpretation Comments Blood Urea Nitrogen (test code = 3094-0) 16 7-26 [facility] HospitalCreatinine2019-07-10 05:36:00* Test Item Value Reference Range Interpretation Comments Creatinine (test code = 2160-0) 0.73 0.57-1.11 [facility] HospitalBUN/Creatinine Zblmg8132-86-60 05:36:00* Test Item Value Reference Range Interpretation Comments BUN/Creatinine Ratio (test code = 3097-3) 22 6-25 [facility] HospitalEstimat Glomerular Filtration Rate 2019-02-22 05:36:00* Test Item Value Reference Range Interpretation Comments Estimat Glomerular Filtration Rate (test code = 738891530) > 60 >60 Ranges were taken from the National Kidney Disease Education Program and the [facility] Kidney Foundation literature.Reference ranges:60 or greater: Yjiqjp23-95 ( for 3 consecutive months): Chronic kidney disease 15 or less: Kidney failureCHI Houston Methodist The Wood[facility] HospitalGlucose Munwh4841-15-98 05:36:00* Test Item Value Reference Range Interpretation Comments Glucose Level (test code = WPW5057) 99 74-118 [facility] HospitalCalcium Bgjxh3848-57-98 05:36:00* Test Item Value Reference Range Interpretation Comments Calcium Level (test code = 75264-6) 9.5 8.4-10.2 [facility] HospitalTotal Jpkgnygdv2099-60-89 05:36:00* Test Item Value Reference Range Interpretation Comments Total Bilirubin (test code = 1975-2) 0.4 0.2-1.2 [facility] HospitalAspartate Amino Transf (AST/SGOT) 2019-02-22 05:36:00* Test Item Value Reference Range Interpretation Comments Aspartate Amino Transf (AST/SGOT) (test code = Aspartate Amino Transf (AST/SGOT)) 46 5-34 H [facility] HospitalAlanine Aminotransferase (ALT/SGPT) 2019-02-22 05:36:00* Test Item Value Reference Range Interpretation Comments Alanine Aminotransferase (ALT/SGPT) (test code = 1742-6) 61 0-55 H [facility] HospitalTotal Qnjfqew2077-39-75 05:36:00* Test Item Value Reference Range Interpretation Comments Total Protein (test code = 2885-2) 8.0 6.5-8.1 [facility] HospitalAlbumin2019-07-10 05:36:00* Test Item Value Reference Range Interpretation Comments Albumin (test code = 1751-7) 3.6 3.5-5.0 [facility] HospitalGlobulin2019-07-10 05:36:00* Test Item Value Reference Range Interpretation Comments Globulin (test code = 44516-0) 4.4 2.3-3.5 H [facility] HospitalAlbumin/Globulin Gjlcn5068-72-25 05:36:00 * Test Item Value Reference Range Interpretation Comments Albumin/Globulin Ratio (test code = 1759-0) 0.8 0.8-2.0 [facility] HospitalAlkaline Nxcwhxoxclv5155-73-48 05:36:00* Test Item Value Reference Range Interpretation Comments Alkaline Phosphatase (test code = 6768-6) 97 40-150 [facility] HospitalCreatine Tzhplm8944-03-00 05:36:00* Test Item Value Reference Range Interpretation Comments Creatine Kinase (test code = 2157-6) 80 29-168 [facility] Hospitalodium Jlasj2353-32-48 05:36:00* Test Item Value Reference Range Interpretation Comments Sodium Level (test code = 2951-2) 138 136-145 [facility] HospitalPotassium Uggbf3998-28-14 05:36:00* Test Item Value Reference Range Interpretation Comments Potassium Level (test code = 2823-3) 4.0 3.5-5.1 [facility] HospitalChloride Rrwcn1035-94-24 05:36:00* Test Item Value Reference Range Interpretation Comments Chloride Level (test code = 2075-0) 104 98-107 [facility] HospitalCarbon Dioxide Gtrbm3347-87-86 05:36:00* Test Item Value Reference Range Interpretation Comments Carbon Dioxide Level (test code = 2028-9) 25 22-29 [facility] HospitalAnion Yna7140-70-62 05:36:00* Test Item Value Reference Range Interpretation Comments Anion Gap (test code = 87552-9) 13.0 8-16 [facility] HospitalBlood Urea Vrpjxuux9415-48-99 05:36:00* Test Item Value Reference Range Interpretation Comments Blood Urea Nitrogen (test code = 3094-0) 16 7-26 [facility] HospitalCreatinine2019-07-10 05:36:00* Test Item Value Reference Range Interpretation Comments Creatinine (test code = 2160-0) 0.73 0.57-1.11 [facility] HospitalBUN/Creatinine Ewwjn1091-33-84 05:36:00* Test Item Value Reference Range Interpretation Comments BUN/Creatinine Ratio (test code = 3097-3) 22 6-25 [facility] HospitalEstimat Glomerular Filtration Rate 2019-02-22 05:36:00* Test Item Value Reference Range Interpretation Comments Estimat Glomerular Filtration Rate (test code = 369483188) > 60 >60 Ranges were taken from the National Kidney Disease Education Program and the [facility] Foundation literature.Reference ranges:60 or greater: Yajksl26-48 ( for 3 consecutive months): Chronic kidney disease 15 or less: Kidney failureR[facility] Regional HospitalGlucose Anaoi8232-43-61 05:36:00* Test Item Value Reference Range Interpretation Comments Glucose Level (test code = EOT0772) 99 74-118 [facility] HospitalCalcium Pldkg5675-43-45 05:36:00* Test Item Value Reference Range Interpretation Comments Calcium Level (test code = 62794-5) 9.5 8.4-10.2 [facility] HospitalTotal Gosbhuwvz7305-22-23 05:36:00* Test Item Value Reference Range Interpretation Comments Total Bilirubin (test code = 1975-2) 0.4 0.2-1.2 [facility] HospitalAspartate Amino Transf (AST/SGOT) 2019-02-22 05:36:00* Test Item Value Reference Range Interpretation Comments Aspartate Amino Transf (AST/SGOT) (test code = Aspartate Amino Transf (AST/SGOT)) 46 5-34 H [facility] HospitalAlanine Aminotransferase (ALT/SGPT) 2019-02-22 05:36:00* Test Item Value Reference Range Interpretation Comments Alanine Aminotransferase (ALT/SGPT) (test code = 1742-6) 61 0-55 H [facility] HospitalTotal Pgslhga2205-40-96 05:36:00* Test Item Value Reference Range Interpretation Comments Total Protein (test code = 2885-2) 8.0 6.5-8.1 [facility] HospitalAlbumin2019-07-10 05:36:00* Test Item Value Reference Range Interpretation Comments Albumin (test code = 1751-7) 3.6 3.5-5.0 [facility] HospitalGlobulin2019-07-10 05:36:00* Test Item Value Reference Range Interpretation Comments Globulin (test code = 43546-9) 4.4 2.3-3.5 H [facility] HospitalAlbumin/Globulin Vqhfg3658-24-08 05:36:00 * Test Item Value Reference Range Interpretation Comments Albumin/Globulin Ratio (test code = 1759-0) 0.8 0.8-2.0 [facility] HospitalAlkaline Oulyqnkrtji3293-94-12 05:36:00* Test Item Value Reference Range Interpretation Comments Alkaline Phosphatase (test code = 6768-6) 97 40-150 [facility] HospitalCreatine Jknmmn5089-16-89 05:36:00* Test Item Value Reference Range Interpretation Comments Creatine Kinase (test code = 2157-6) 80 29-168 [facility] HospitalCHEST SINGLE (PORTABLE)2019-02-22 05:32:00 [facility] [address] [address] Patient Name: SASHA POPE MR #: [id number] : 1965 Age/Sex: 54/F Req #: [id number] Adm Physician: Ordered by: ANN CHADWICK MD Report #: [id number] Location: ER Room/Bed: Procedure: 5306-9647 DX/CHEST SINGLE (PORTABLE) Exam Date: 02/22/19 Exam [...] COPY TO: JAYY CHADWICK MD White Blood Pgozv4113-50-50 05:24:00* Test Item Value Reference Range Interpretation Comments White Blood Count (test code = 6690-2) 6.24 4.8-10.8 [facility] HospitalRed Blood Jjlvu9291-67-46 05:24:00* Test Item Value Reference Range Interpretation Comments Red Blood Count (test code = 789-8) 4.42 3.6-5.1 [facility] HospitalHemoglobin2019-07-10 05:24:00* Test Item Value Reference Range Interpretation Comments Hemoglobin (test code = 43676-0) 12.9 12.0-16.0 [facility] HospitalHematocrit2019-07-10 05:24:00* Test Item Value Reference Range Interpretation Comments Hematocrit (test code = 4544-3) 39.2 34.2-44.1 [facility] HospitalMean Corpuscular Jsbzah5115-37-89 05:24:00* Test Item Value Reference Range Interpretation Comments Mean Corpuscular Volume (test code = 787-2) 88.7 81-99 [facility] HospitalMean Corpuscular Csxyqdeecy8317-06-51 05:24:00* Test Item Value Reference Range Interpretation Comments Mean Corpuscular Hemoglobin (test code = 785-6) 29.2 28-32 [facility] HospitalMean Corpuscular Hemoglobin Concent 2019-02-22 05:24:00* Test Item Value Reference Range Interpretation Comments Mean Corpuscular Hemoglobin Concent (test code = 786-4) 32.9 31-35 [facility] HospitalRed Cell Distribution Iemch9967-53-01 05:24:00* Test Item Value Reference Range Interpretation Comments Red Cell Distribution Width (test code = 37791-8) 13.8 11.7 -14.4 [facility] HospitalPlatelet Wqjbf3014-50-11 05:24:00* Test Item Value Reference Range Interpretation Comments Platelet Count (test code = 777-3) 202 140-360 [facility] HospitalNeutrophils (%) (Auto)2019-02-22 05:24:00 * Test Item Value Reference Range Interpretation Comments Neutrophils (%) (Auto) (test code = 71479-7) 47.3 38.7-80.0 [facility] HospitalLymphocytes (%) (Auto)2019-02-22 05:24:00 * Test Item Value Reference Range Interpretation Comments Lymphocytes (%) (Auto) (test code = 736-9) 40.9 18.0-39.1 H [facility] HospitalMonocytes (%) (Auto)2019-02-22 05:24:00* Test Item Value Reference Range Interpretation Comments Monocytes (%) (Auto) (test code = 5905-5) 7.2 4.4-11.3 [facility] HospitalEosinophils (%) (Auto)2019-02-22 05:24:00 * Test Item Value Reference Range Interpretation Comments Eosinophils (%) (Auto) (test code = 713-8) 3.8 0.0-6.0 [facility] HospitalBasophils (%) (Auto)2019-02-22 05:24:00* Test Item Value Reference Range Interpretation Comments Basophils (%) (Auto) (test code = 706-2) 0.5 0.0-1.0 [facility] HospitalIM GRANULOCYTES %2019-02-22 05:24:00* Test Item Value Reference Range Interpretation Comments IM GRANULOCYTES % (test code = IM GRANULOCYTES %) 0.3 0.0- 1.0 [facility] HospitalNeutrophils # (Auto)2019-02-22 05:24:00* Test Item Value Reference Range Interpretation Comments Neutrophils # (Auto) (test code = 751-8) 3.0 2.1-6.9 [facility] HospitalLymphocytes # (Auto)2019-02-22 05:24:00* Test Item Value Reference Range Interpretation Comments Lymphocytes # (Auto) (test code = 32109-1) 2.6 1.0-3.2 [facility] HospitalMonocytes # (Auto)2019-02-22 05:24:00* Test Item Value Reference Range Interpretation Comments Monocytes # (Auto) (test code = 742-7) 0.5 0.2-0.8 [facility] HospitalEosinophils # (Auto)2019-02-22 05:24:00* Test Item Value Reference Range Interpretation Comments Eosinophils # (Auto) (test code = 711-2) 0.2 0.0-0.4 [facility] HospitalBasophils # (Auto)2019-02-22 05:24:00* Test Item Value Reference Range Interpretation Comments Basophils # (Auto) (test code = 704-7) 0.0 0.0-0.1 [facility] HospitalAbsolute Immature Granulocyte (auto 2019-02-22 05:24:00* Test Item Value Reference Range Interpretation Comments Absolute Immature Granulocyte (auto (jesus t code = Absolute Immature Granulocyte (auto) 0.02 0-0.1 [facility] HospitalProthrombin Zhdv4315-54-77 05:24:00* Test Item Value Reference Range Interpretation Comments Prothrombin Time (test code = 5902-2) 12.9 11.9-14.5 [facility] HospitalProthromb Time International Ratio 2019-02-22 05:24:00* Test Item Value Reference Range Interpretation Comments Prothromb Time International Ratio (test code = 6301-6) 0.92 Oral Anticoagulant Therapy INR Values:1. Low Intensity Therapy 1.5 - 2.02 . Moderate Intensity Therapy 2.0 - 3.03. High Intensity Therapy(1) 2.5 - 3. 54. High Intensity Therapy(2) 3.0 - 4.05. Panic Value INR > 5.0 [facility] HospitalActivated Partial Thromboplast Time 2019-02-22 05:24:00* Test Item Value Reference Range Interpretation Comments Activated Partial Thromboplast Time (test code = 62622-4) 26.1 23.8-35.5 [facility] HospitalWhite Blood Xgutj7329-39-61 05:24:00* Test Item Value Reference Range Interpretation Comments White Blood Count (test code = 6690-2) 6.24 4.8-10.8 [facility] HospitalRed Blood Bvfcl7233-76-19 05:24:00* Test Item Value Reference Range Interpretation Comments Red Blood Count (test code = 789-8) 4.42 3.6-5.1 [facility]oglobin[facility] 05:24:00* Test Item Value Reference Range Interpretation Comments Hemoglobin (test code = 28510-0) 12.9 12.0-16.0 [facility] HospitalHematocrit2019-07-10 05:24:00* Test Item Value Reference Range Interpretation Comments Hematocrit (test code = 4544-3) 39.2 34.2-44.1 [facility] HospitalMean Corpuscular Olgqgz5483-54-99 05:24:00* Test Item Value Reference Range Interpretation Comments Mean Corpuscular Volume (test code = 787-2) 88.7 81-99 [facility] HospitalMean Corpuscular Ghifknniqq1496-60-48 05:24:00* Test Item Value Reference Range Interpretation Comments Mean Corpuscular Hemoglobin (test code = 785-6) 29.2 28-32 [facility] HospitalMean Corpuscular Hemoglobin Concent 2019-02-22 05:24:00* Test Item Value Reference Range Interpretation Comments Mean Corpuscular Hemoglobin Concent (test code = 786-4) 32.9 31-35 [facility] HospitalRed Cell Distribution Kwtvp0449-15-86 05:24:00* Test Item Value Reference Range Interpretation Comments Red Cell Distribution Width (test code = 67202-0) 13.8 11.7 -14.4 [facility] HospitalPlatelet Ngose7701-73-63 05:24:00* Test Item Value Reference Range Interpretation Comments Platelet Count (test code = 777-3) 202 140-360 [facility] HospitalNeutrophils (%) (Auto)2019-02-22 05:24:00 * Test Item Value Reference Range Interpretation Comments Neutrophils (%) (Auto) (test code = 91816-1) 47.3 38.7-80.0 [facility] HospitalLymphocytes (%) (Auto)2019-02-22 05:24:00 * Test Item Value Reference Range Interpretation Comments Lymphocytes (%) (Auto) (test code = 736-9) 40.9 18.0-39.1 H [facility] HospitalMonocytes (%) (Auto)2019-02-22 05:24:00* Test Item Value Reference Range Interpretation Comments Monocytes (%) (Auto) (test code = 5905-5) 7.2 4.4-11.3 [facility] HospitalEosinophils (%) (Auto)2019-02-22 05:24:00 * Test Item Value Reference Range Interpretation Comments Eosinophils (%) (Auto) (test code = 713-8) 3.8 0.0-6.0 [facility] HospitalBasophils (%) (Auto)2019-02-22 05:24:00* Test Item Value Reference Range Interpretation Comments Basophils (%) (Auto) (test code = 706-2) 0.5 0.0-1.0 [facility] HospitalIM GRANULOCYTES %2019-02-22 05:24:00* Test Item Value Reference Range Interpretation Comments IM GRANULOCYTES % (test code = IM GRANULOCYTES %) 0.3 0.0- 1.0 [facility] HospitalNeutrophils # (Auto)2019-02-22 05:24:00* Test Item Value Reference Range Interpretation Comments Neutrophils # (Auto) (test code = 751-8) 3.0 2.1-6.9 [facility] HospitalLymphocytes # (Auto)2019-02-22 05:24:00* Test Item Value Reference Range Interpretation Comments Lymphocytes # (Auto) (test code = 34942-2) 2.6 1.0-3.2 [facility] HospitalMonocytes # (Auto)2019-02-22 05:24:00* Test Item Value Reference Range Interpretation Comments Monocytes # (Auto) (test code = 742-7) 0.5 0.2-0.8 [facility] HospitalEosinophils # (Auto)2019-02-22 05:24:00* Test Item Value Reference Range Interpretation Comments Eosinophils # (Auto) (test code = 711-2) 0.2 0.0-0.4 [facility] HospitalBasophils # (Auto)2019-02-22 05:24:00* Test Item Value Reference Range Interpretation Comments Basophils # (Auto) (test code = 704-7) 0.0 0.0-0.1 [facility] HospitalAbsolute Immature Granulocyte (auto 2019-02-22 05:24:00* Test Item Value Reference Range Interpretation Comments Absolute Immature Granulocyte (auto (jesus t code = Absolute Immature Granulocyte (auto) 0.02 0-0.1 [facility] HospitalProthrombin [id number] 05:24:00* Test Item Value Reference Range Interpretation Comments Prothrombin Time (test code = 5902-2) 12.9 11.9-14.5 [facility] HospitalProthromb Time International Ratio 2019-02-22 05:24:00* Test Item Value Reference Range Interpretation Comments Prothromb Time International Ratio (test code = 6301-6) 0.92 Oral Anticoagulant Therapy INR Values:1. Low Intensity Therapy 1.5 - 2.02 . Moderate Intensity Therapy 2.0 - 3.03. High Intensity Therapy(1) 2.5 - 3. 54. High Intensity Therapy(2) 3.0 - 4.05. Panic Value INR > 5.0 [facility] HospitalActivated Partial Thromboplast Time 2019-02-22 05:24:00* Test Item Value Reference Range Interpretation Comments Activated Partial Thromboplast Time (test code = 73530-9) 26.1 23.8-35.5 [facility] HospitalProthrombin Kiwb9396-09-25 05:24:00* Test Item Value Reference Range Interpretation Comments Prothrombin Time (test code = 5902-2) 12.9 11.9-14.5 [facility] HospitalProthromb Time International Ratio 2019-02-22 05:24:00* Test Item Value Reference Range Interpretation Comments Prothromb Time International Ratio (test code = 6301-6) 0.92 Oral Anticoagulant Therapy INR Values:1. Low Intensity Therapy 1.5 - 2.02 . Moderate Intensity Therapy 2.0 - 3.03. High Intensity Therapy(1) 2.5 - 3. 54. High Intensity Therapy(2) 3.0 - 4.05. Panic Value INR > 5.0 [facility] HospitalActivated Partial Thromboplast Time 2019-02-22 05:24:00* Test Item Value Reference Range Interpretation Comments Activated Partial Thromboplast Time (test code = 04159-2) 26.1 23.8-35.5 [facility] HospitalProthrombin [id number] 05:24:00* Test Item Value Reference Range Interpretation Comments Prothrombin Time (test code = 5902-2) 12.9 11.9-14.5 [facility] HospitalProthromb Time International Ratio 2019-02-22 05:24:00* Test Item Value Reference Range Interpretation Comments Prothromb Time International Ratio (test code = 6301-6) 0.92 Oral Anticoagulant Therapy INR Values:1. Low Intensity Therapy 1.5 - 2.02 . Moderate Intensity Therapy 2.0 - 3.03. High Intensity Therapy(1) 2.5 - 3. 54. High Intensity Therapy(2) 3.0 - 4.05. Panic Value INR > 5.[address] [facility] [facility] Thromboplast Time 2019-02-22 05:24:00* Test Item Value Reference Range Interpretation Comments Activated Partial Thromboplast Time (test code = 29665-7) 26.1 23.8-35.5 [facility] HEAD/BRAIN W/O [id number] 08:04:00 Name: SASHA POPE [facility] : 1965 Age/S: 54 / F [address] [facility] Unit #: [id number] Loc: [place] [address] Phys: Bo Meneses MD Acct: [id number] Dis Date: Status: REG ER PHONE #: [phone] Exam Date: 02/08/2019800 FAX #: [phone] Reason: headache EXAMS: CPT CODE: [id number] CT HEAD/BRAIN W/O CONT 90311 HISTORY: headache TECHNIQUE: Noncontrast 2.5 mm axial [...] Hernandez RT(R)(CT) CTDI: DLP: Trnscb Date/Time: 02/08/2019 (803) AlexP1 Orig Print D/T: S: 02/08/2019 (0807) PAGE 1 Signed Report URINALYSIS [id number] 08:00:00* Test Item Value Reference Range Interpretation [...] FEW #/LPF FEW Urine Source? Clean CatchURINALYSIS [id number] 07:59:00* Test Item Value Reference Range Interpretation [...] HPF NONE Urine Source? Clean CatchBASIC METABOLIC [id number] 07:43:00* Test Item Value Reference Range Interpretation [...] CA) 9.0 mg/dL 8.5-10.1 N HEPATIC FUNCTION [id number] 07:43:00* Test Item Value Reference Range Interpretation [...] reference range due to change in reagent. [id number] 07:43:00* Test Item Value Reference Range Interpretation Comments LIPASE (test code = LIP) 102 U/L 73.0-393.0 N BASIC METABOLIC [id number] 07:36:00* Test Item Value Reference Range Interpretation [...] code = CA) mg/dL 8.5-10.1 HEPATIC FUNCTION [id number] 07:36:00* Test Item Value Reference Range Interpretation [...] TOTAL (test code = ALKP) IUnit/L 45-117 [id number] 07:36:00* Test Item Value Reference Range Interpretation Comments LIPASE (test code = LIP) U/L 73.0-393.0 CBC W/O [id number] 07:13:00* Test Item Value Reference Range Interpretation [...] 6.7-11.0 N - CT ABD PELVIS W/O [id number] 06:42:00 Name: SASHA POPE [facility] : 1965 Age/S: 54 / F [address] [facility] Unit #: [id number] Loc: [place] [address] Phys: Saurabh Muir PLUG WIRER Acct: [id number] Dis Date: Status: REG ER PHONE #: [phone] Exam Date: 02/08/2019618 FAX #: [phone] Reason: LEFT SIDED ABD PAIN EXAMS: CPT CODE: [id number] CT ABD PELVIS W/O CONT 66895 CT abdomen and pelvis without IV contrast. [...] may be within tasneem l limits versus sales service representative of an ascending urinary tract infection. [...] Sig marly Report (CONTINUED) Name: SASHA POPE [facility] : 1965 Age/S: 54 / F [address] [facility] Unit #: [id number] Loc: [place] [address] Phys: Saurabh Muir PLUG WIRER Acct: [id number] Dis Date: Status: REG ER PHONE #: [phone] Exam Date: 02/08/2019618 FAX #: [phone] Reason: LEFT SIDED ABD PAIN EXAMS: CPT CODE: [id number] CT ABD PELVIS W/O CONT 80584 <Continued> with endoscopy to exclude ulcer. 2. Questionable left renal pelvic induration is nonspecific and may be within normal limits versus sales service representative of an ascending urinary tract infection. Bladder wall thickening is also seen suggestive of possible cystitis Additional findings as detailed above at 0642 Reported and signed by: Karen Raygoza M.D. CC: Saurabh Muir NP Technologist:JOHN URENA CTDI: DLP: Trnscb Date/Time: 02/08/2019 (0642) [email or web address] Orig Print D/T: S: 02/08/2019 (0645) PAGE [address] ABDOMEN/PELVIS [id number] 13:08:00 [place] [address] Patient Name: SASHA POPE MR #: [id number] : 1965 Age/Sex: 53/F Req #: [id number] Adm Physician: Ordered by: MIKALA EVANS MD Report #: [id number] Location: ER Room/Bed: Procedure: 0419- 0014 CT/CT [...] Signed by: Dr. John Carrasquillo M.D. o n 12/02/2018 1:17 PM Dictated By: JOHN CARRASQUILLO MD 1317 Transcribed By: GARO on 12/02/18 1317 COPY TO: MIKALA EVANS MD Sodium Auhqy3289-81-49 11:32:00* Test Item Value Reference Range Interpretation Comments Sodium Level (test code = 2951-2) 140 136-145 [facility] HospitalPotassium Osyfy6862-44-39 11:32:00* Test Item Value Reference Range Interpretation Comments Potassium Level (test code = 2823-3) 3.9 3.5-5.1 [facility] HospitalChloride Fxmkb9525-48-08 11:32:00* Test Item Value Reference Range Interpretation Comments Chloride Level (test code = 2075-0) 106 98-107 [facility] HospitalCarbon Dioxide Erupc1839-94-92 11:32:00* Test Item Value Reference Range Interpretation Comments Carbon Dioxide Level (test code = 8-9) 24 22-29 [facility] HospitalAnion Wjr1399-25-27 11:32:00* Test Item Value Reference Range Interpretation Comments Anion Gap (test code = 31409-4) 13.9 8-16 [facility] HospitalBlood Urea Tsucuxsw1195-54-64 11:32:00* Test Item Value Reference Range Interpretation Comments Blood Urea Nitrogen (test code = 3094-0) 15 7-26 [facility] HospitalCreatinine2019-04-19 11:32:00* Test Item Value Reference Range Interpretation Comments Creatinine (test code = 2160-0) 0.78 0.57-1.11 [facility] HospitalBUN/Creatinine Qoapl4878-64-87 11:32:00* Test Item Value Reference Range Interpretation Comments BUN/Creatinine Ratio (test code = 3097-3) 19 6- [facility] HospitalEstimat Glomerular Filtration Rate 2018-12-02 11:32:00* Test Item Value Reference Range Interpretation Comments Estimat Glomerular Filtration Rate (test code = 335525685) > 60 >60 Ranges were taken from the National Kidney Disease Education Program and the [facility] literature.Reference ranges:60 or greater: Tcbftb23-99 ( for 3 consecutive months): Chronic kidney disease 15 or less: Kidney failureR[facility] HospitalGlucose Qjswu1794-91-30 11:32:00* Test Item Value Reference Range Interpretation Comments Glucose Level (test code = ORV3570) 85 74-118 [facility] HospitalCalcium Jvtai5802-91-25 11:32:00* Test Item Value Reference Range Interpretation Comments Calcium Level (test code = 88900-7) 9.7 8.4-10.2 [facility] HospitalTotal Xwzsgdvqa7505-11-23 11:32:00* Test Item Value Reference Range Interpretation Comments Total Bilirubin (test code = 1975-2) 0.4 0.2-1.2 [facility] HospitalAspartate Amino Transf (AST/SGOT) 2018-12-02 11:32:00* Test Item Value Reference Range Interpretation Comments Aspartate Amino Transf (AST/SGOT) (test code = Aspartate Amino Transf (AST/SGOT)) 48 5-34 H [facility] HospitalAlanine Aminotransferase (ALT/SGPT) 2018-12-02 11:32:00* Test Item Value Reference Range Interpretation Comments Alanine Aminotransferase (ALT/SGPT) (test code = 1742-6) 58 0-55 H [facility] HospitalTotal Dklntoi9956-41-14 11:32:00* Test Item Value Reference Range Interpretation Comments Total Protein (test code = 2885-2) 8.4 6.5-8.1 H [facility] HospitalAlbumin2019-04-19 11:32:00* Test Item Value Reference Range Interpretation Comments Albumin (test code = 1751-7) 3.8 3.5-5.0 [facility] HospitalGlobulin2019-04-19 11:32:00* Test Item Value Reference Range Interpretation Comments Globulin (test code = 80856-6) 4.6 2.3-3.5 H [facility] HospitalAlbumin/Globulin Mpvct2454-00-16 11:32:00 * Test Item Value Reference Range Interpretation Comments Albumin/Globulin Ratio (test code = 1759-0) 0.8 0.8-2.0 [facility] HospitalAlkaline Xsizmjvqepo1832-47-63 11:32:00* Test Item Value Reference Range Interpretation Comments Alkaline Phosphatase (test code = 6768-6) 100 40-150 [facility] HospitalCreatine Hsobwp9560-06-65 11:32:00* Test Item Value Reference Range Interpretation Comments Creatine Kinase (test code = 2157-6) 110 29-168 [facility] HospitalCreatine Kinase [id number] 11:32:00* Test Item Value Reference Range Interpretation Comments Creatine Kinase MB (test code = 23591-4) 1.60 0-5.0 [facility] HospitalTroponin [id number] 11:32:00* Test Item Value Reference Range Interpretation Comments Troponin I (test code = HTH5308) < 0.001 0-0.300 [facility] HospitalLipase2019-04-19 11:32:00* Test Item Value Reference Range Interpretation Comments Lipase (test code = 3040-3) [facility] HospitalLipase2019-04-19 11:32:00* Test Item Value Reference Range Interpretation Comments Lipase (test code = 3040-3) [facility] HospitalLipase2019-04-19 11:32:00* Test Item Value Reference Range Interpretation Comments Lipase (test code = 3040-3) [facility] HospitalLipase2019-04-19 11:32:00* Test Item Value Reference Range Interpretation Comments Lipase (test code = 3040-3) [facility] HospitalUrine [id number] 11:21:00* Test Item Value Reference Range Interpretation Comments Urine WBC (test code = 5821-4) NONE 0-5 [facility] HospitalUrine ZNS0985-31-03 11:21:00* Test Item Value Reference Range Interpretation Comments Urine RBC (test code = 50057-9) NONE 0-5 [facility] HospitalUrine Vafcuzwg5331-72-69 11:21:00* Test Item Value Reference Range Interpretation Comments Urine Bacteria (test code = 67348-9) NONE NONE [facility] HospitalUrine Epithelial Xmvtp6660-79-46 11:21:00 * Test Item Value Reference Range Interpretation Comments Urine Epithelial Cells (test code = 40396-3) FEW NONE [facility] HospitalUrine [id number] 11:21:00* Test Item Value Reference Range Interpretation Comments Urine WBC (test code = 5821-4) NONE 0-5 [facility] HospitalUrine [id number] 11:21:00* Test Item Value Reference Range Interpretation Comments Urine RBC (test code = 07534-5) NONE 0-5 [facility] HospitalUrine Ygosbhwy8124-83-01 11:21:00* Test Item Value Reference Range Interpretation Comments Urine Bacteria (test code = 35905-6) NONE NONE [facility] HospitalUrine Epithelial Ndbty6184-28-41 11:21:00 * Test Item Value Reference Range Interpretation Comments Urine Epithelial Cells (test code = 77167-4) FEW NONE [facility] HospitalUrine [id number] 11:21:00* Test Item Value Reference Range Interpretation Comments Urine WBC (test code = 5821-4) NONE 0-5 [facility] HospitalUrine [id number] 11:21:00* Test Item Value Reference Range Interpretation Comments Urine RBC (test code = 63696-2) NONE 0-5 [facility] HospitalUrine Rdwhmuol9010-34-15 11:21:00* Test Item Value Reference Range Interpretation Comments Urine Bacteria (test code = 04222-3) NONE NONE [facility] HospitalUrine Epithelial Zzmco5730-33-35 11:21:00 * Test Item Value Reference Range Interpretation Comments Urine Epithelial Cells (test code = 57359-7) FEW NONE [facility] HospitalUrine [id number] 11:21:00* Test Item Value Reference Range Interpretation Comments Urine WBC (test code = 5821-4) NONE 0-5 [facility] HospitalUrine [id number] 11:21:00* Test Item Value Reference Range Interpretation Comments Urine RBC (test code = 98122-7) NONE 0-5 [facility] HospitalUrine Aaahnzca4784-78-34 11:21:00* Test Item Value Reference Range Interpretation Comments Urine Bacteria (test code = 60787-2) NONE NONE [facility] HospitalUrine Epithelial Twbbn7042-01-32 11:21:00 * Test Item Value Reference Range Interpretation Comments Urine Epithelial Cells (test code = 55746-2) FEW NONE [facility] HospitalWhite Blood Hzddo9120-49-29 11:20:00* Test Item Value Reference Range Interpretation Comments White Blood Count (test code = 6690-2) 6.00 4.8-10.8 [facility] HospitalRed Blood Zqcxg6197-83-30 11:20:00* Test Item Value Reference Range Interpretation Comments Red Blood Count (test code = 789-8) 4.31 3.6-5.1 [facility] HospitalHemoglobin2019-04-19 11:20:00* Test Item Value Reference Range Interpretation Comments Hemoglobin (test code = 66013-4) 12.4 12.0-16.0 [facility] HospitalHematocrit2019-04-19 11:20:00* Test Item Value Reference Range Interpretation Comments Hematocrit (test code = 4544-3) 38.2 34.2-44.1 [facility] HospitalMean Corpuscular Ibvhza1913-96-14 11:20:00* Test Item Value Reference Range Interpretation Comments Mean Corpuscular Volume (test code = 787-2) 88.6 81-99 [facility] HospitalMean Corpuscular Rcgproqmmj7354-63-06 11:20:00* Test Item Value Reference Range Interpretation Comments Mean Corpuscular Hemoglobin (test code = 785-6) 28.8 28-32 [facility] HospitalMean Corpuscular Hemoglobin Concent 2018-12-02 11:20:00* Test Item Value Reference Range Interpretation Comments Mean Corpuscular Hemoglobin Concent (test code = 786-4) 32.5 31-35 [facility] HospitalRed Cell Distribution Rgcvx9793-73-93 11:20:00* Test Item Value Reference Range Interpretation Comments Red Cell Distribution Width (test code = 47435-0) 13.4 11.7 -14.4 [facility] HospitalPlatelet Bxopd9634-78-26 11:20:00* Test Item Value Reference Range Interpretation Comments Platelet Count (test code = 777-3) 219 140-360 [facility] HospitalNeutrophils (%) (Auto)2018-12-02 11:20:00 * Test Item Value Reference Range Interpretation Comments Neutrophils (%) (Auto) (test code = 46770-7) 49.7 38.7-80.0 [facility] HospitalLymphocytes (%) (Auto)2018-12-02 11:20:00 * Test Item Value Reference Range Interpretation Comments Lymphocytes (%) (Auto) (test code = 736-9) 39.3 18.0-39.1 H [facility] HospitalMonocytes (%) (Auto)2018-12-02 11:20:00* Test Item Value Reference Range Interpretation Comments Monocytes (%) (Auto) (test code = 5905-5) 5.5 4.4-11.3 [facility] HospitalEosinophils (%) (Auto)2018-12-02 11:20:00 * Test Item Value Reference Range Interpretation Comments Eosinophils (%) (Auto) (test code = 713-8) 4.7 0.0-6.0 [facility] HospitalBasophils (%) (Auto)2018-12-02 11:20:00* Test Item Value Reference Range Interpretation Comments Basophils (%) (Auto) (test code = 706-2) 0.5 0.0-1.0 [facility] HospitalIM GRANULOCYTES %2018-12-02 11:20:00* Test Item Value Reference Range Interpretation Comments IM GRANULOCYTES % (test code = IM GRANULOCYTES %) 0.3 0.0- 1.0 [facility] HospitalNeutrophils # (Auto)2018-12-02 11:20:00* Test Item Value Reference Range Interpretation Comments Neutrophils # (Auto) (test code = 751-8) 3.0 2.1-6.9 [facility] HospitalLymphocytes # (Auto)2018-12-02 11:20:00* Test Item Value Reference Range Interpretation Comments Lymphocytes # (Auto) (test code = 65613-5) 2.4 1.0-3.2 [facility] HospitalMonocytes # (Auto)2018-12-02 11:20:00* Test Item Value Reference Range Interpretation Comments Monocytes # (Auto) (test code = 742-7) 0.3 0.2-0.8 [facility] HospitalEosinophils # (Auto)2018-12-02 11:20:00* Test Item Value Reference Range Interpretation Comments Eosinophils # (Auto) (test code = 711-2) 0.3 0.0-0.4 [facility] HospitalBasophils # (Auto)2018-12-02 11:20:00* Test Item Value Reference Range Interpretation Comments Basophils # (Auto) (test code = 704-7) 0.0 0.0-0.1 [facility] HospitalAbsolute Immature Granulocyte (auto 2018-12-02 11:20:00* Test Item Value Reference Range Interpretation Comments Absolute Immature Granulocyte (auto (jesus t code = Absolute Immature Granulocyte (auto) 0.02 0-0.1 [facility] HospitalUrine Mnuex4677-34-83 11:08:00* Test Item Value Reference Range Interpretation Comments Urine Color (test code = 5778-6) YELLOW YELLOW [facility] HospitalUrine Ttoxrcm3743-68-75 11:08:00* Test Item Value Reference Range Interpretation Comments Urine Clarity (test code = 93641-1) SL CLOUDY CLEAR [facility] HospitalUrine Specific Chpwrcc1315-21-49 11:08:00 * Test Item Value Reference Range Interpretation Comments Urine Specific Deane (test code = 5811-5) 1.005 1.010-1.02 5 L [facility] HospitalUrine [id number] 11:08:00* Test Item Value Reference Range Interpretation Comments Urine pH (test code = 17899-8) 6 5-7 [facility] Leukocyte Lcmaeajj2003-49-55 11:08:00* Test Item Value Reference Range Interpretation Comments Urine Leukocyte Esterase (test code = 5799-2) NEGATIVE NEGATIVE [facility] Oytwvoh1634-31-56 11:08:00* Test Item Value Reference Range Interpretation Comments Urine Nitrite (test code = 47416-9) NEGATIVE NEGATIVE [facility] HospitalUrine Qnccctt9051-71-16 11:08:00* Test Item Value Reference Range Interpretation Comments Urine Protein (test code = 5804-0) 3+ NEGATIVE H [facility] Glucose (UA)2018-12-02 11:08:00* Test Item Value Reference Range Interpretation Comments Urine Glucose (UA) (test code = 2349-9) NEGATIVE NEGATIVE [facility] HospitalUrine Lznlqem4189-16-87 11:08:00* Test Item Value Reference Range Interpretation Comments Urine Ketones (test code = 40598-9) NEGATIVE NEGATIVE [facility] Swwlllusejkk4158-52-74 11:08:00* Test Item Value Reference Range Interpretation Comments Urine Urobilinogen (test code = 28562-9) 0.2 0.2-1 [facility] HospitalUrine Fkhkjrfwv2532-33-77 11:08:00* Test Item Value Reference Range Interpretation Comments Urine Bilirubin (test code = 1978-6) NEGATIVE NEGATIVE [facility] HospitalUrine Wwqss6522-08-51 11:08:00* Test Item Value Reference Range Interpretation Comments Urine Blood (test code = 19792-4) NEGATIVE NEGATIVE [facility] HospitalU[facility] Tiowc9637-91-89 11:08:00* Test Item Value Reference Range Interpretation Comments Urine Color (test code = 5778-6) YELLOW YELLOW [facility] HospitalUrine Ogzzexu7706-50-33 11:08:00* Test Item Value Reference Range Interpretation Comments Urine Clarity (test code = 64077-2) SL CLOUDY CLEAR [facility] Specific Nbczkpy3302-91-20 11:08:00 * Test Item Value Reference Range Interpretation Comments Urine Specific [place] (test code = 5811-5) 1.005 1.010-1.02 5 L [facility] HospitalUrine uL2600-85-49 11:08:00* Test Item Value Reference Range Interpretation Comments Urine pH (test code = 58496-1) 6 5-7 [facility] HospitalU[facility] Leukocyte Yitcburp5693-69-64 11:08:00* Test Item Value Reference Range Interpretation Comments Urine Leukocyte Esterase (test code = 5799-2) NEGATIVE NEGATIVE [facility] HospitalUrine Fmoxpkc5766-11-37 11:08:00* Test Item Value Reference Range Interpretation Comments Urine Nitrite (test code = 23055-8) NEGATIVE NEGATIVE [facility] HospitalUrine Wagkafu4074-09-78 11:08:00* Test Item Value Reference Range Interpretation Comments Urine Protein (test code = 5804-0) 3+ NEGATIVE H [facility] Glucose ([facility])2018-12-02 11:08:00* Test Item Value Reference Range Interpretation Comments Urine Glucose (UA) (test code = 2349-9) NEGATIVE NEGATIVE [facility] Csoiqgl4068-22-44 11:08:00* Test Item Value Reference Range Interpretation Comments Urine Ketones (test code = 53124-3) NEGATIVE NEGATIVE [facility] Ksssnesqgvew0345-33-03 11:08:00* Test Item Value Reference Range Interpretation Comments Urine Urobilinogen (test code = 82589-1) 0.2 0.2-1 [facility] Jygthjhmv9090-79-61 11:08:00* Test Item Value Reference Range Interpretation Comments Urine Bilirubin (test code = 1978-6) NEGATIVE NEGATIVE [facility] Hoizp4545-13-31 11:08:00* Test Item Value Reference Range Interpretation Comments Urine Blood (test code = 63072-2) NEGATIVE NEGATIVE [facility] Eqeom1358-75-15 11:08:00* Test Item Value Reference Range Interpretation Comments Urine Color (test code = 5778-6) YELLOW YELLOW [facility] Ulppsgl1333-03-60 11:08:00* Test Item Value Reference Range Interpretation Comments Urine Clarity (test code = 76452-1) SL CLOUDY CLEAR [facility] Specific Todiuud4969-35-31 11:08:00 * Test Item Value Reference Range Interpretation Comments Urine Specific Deane (test code = 5811-5) 1.005 1.010-1.02 5 L [facility] eO5285-21-87 11:08:00* Test Item Value Reference Range Interpretation Comments Urine pH (test code = 03319-7) 6 5-7 [facility] Leukocyte Vymiqalg2163-32-64 11:08:00* Test Item Value Reference Range Interpretation Comments Urine Leukocyte Esterase (test code = 5799-2) NEGATIVE NEGATIVE [facility] Vtipvnn9155-99-79 11:08:00* Test Item Value Reference Range Interpretation Comments Urine Nitrite (test code = 83450-4) NEGATIVE NEGATIVE [facility] Cfxyorf0278-32-28 11:08:00* Test Item Value Reference Range Interpretation Comments Urine Protein (test code = 5804-0) 3+ NEGATIVE H [facility] Glucose (UA)2018-12-02 11:08:00* Test Item Value Reference Range Interpretation Comments Urine Glucose (UA) (test code = 2349-9) NEGATIVE NEGATIVE [facility] Uoidtry2802-85-57 11:08:00* Test Item Value Reference Range Interpretation Comments Urine Ketones (test code = 34547-3) NEGATIVE NEGATIVE [facility] Jwosalahrdmf5246-00-50 11:08:00* Test Item Value Reference Range Interpretation Comments Urine Urobilinogen (test code = 69731-7) 0.2 0.2-1 [facility] Sccxoerdp8788-36-25 11:08:00* Test Item Value Reference Range Interpretation Comments Urine Bilirubin (test code = 1978-6) NEGATIVE NEGATIVE [facility] Orcoc4348-21-42 11:08:00* Test Item Value Reference Range Interpretation Comments Urine Blood (test code = 21541-0) NEGATIVE NEGATIVE [facility] Liofp3323-01-41 11:08:00* Test Item Value Reference Range Interpretation Comments Urine Color (test code = 5778-6) YELLOW YELLOW [facility] Fuofbci8157-31-08 11:08:00* Test Item Value Reference Range Interpretation Comments Urine Clarity (test code = 31813-3) SL CLOUDY CLEAR [facility] Specific Nrzybnc1960-68-99 11:08:00 * Test Item Value Reference Range Interpretation Comments Urine Specific Deane (test code = 5811-5) 1.005 1.010-1.02 5 L [facility] pK5086-55-42 11:08:00* Test Item Value Reference Range Interpretation Comments Urine pH (test code = 69536-2) 6 5-7 [facility] Leukocyte Bxkyxasa2385-00-23 11:08:00* Test Item Value Reference Range Interpretation Comments Urine Leukocyte Esterase (test code = 5799-2) NEGATIVE NEGATIVE [facility] Elovgcl5994-86-46 11:08:00* Test Item Value Reference Range Interpretation Comments Urine Nitrite (test code = 92879-6) NEGATIVE NEGATIVE [facility] Pdwigdh2702-83-01 11:08:00* Test Item Value Reference Range Interpretation Comments Urine Protein (test code = 5804-0) 3+ NEGATIVE H [facility] Glucose (UA)2018-12-02 11:08:00* Test Item Value Reference Range Interpretation Comments Urine Glucose (UA) (test code = 2349-9) NEGATIVE NEGATIVE [facility] Vyynkvc5054-59-52 11:08:00* Test Item Value Reference Range Interpretation Comments Urine Ketones (test code = 74743-5) NEGATIVE NEGATIVE [facility] Bhuvhnalhuua2852-47-74 11:08:00* Test Item Value Reference Range Interpretation Comments Urine Urobilinogen (test code = 02163-2) 0.2 0.2-1 [facility] Kueolchxp7920-07-62 11:08:00* Test Item Value Reference Range Interpretation Comments Urine Bilirubin (test code = 1978-6) NEGATIVE NEGATIVE [facility] Orajx2097-60-52 11:08:00* Test Item Value Reference Range Interpretation Comments Urine Blood (test code = 22805-8) NEGATIVE NEGATIVE [facility] HospitalABDOMEN[facility] (KUB)2018-12-02 10:28:00 [facility] [address] [place] [address] Patient Name: SASHA POPE MR #: [id number] : Age/Sex: 53/F Req #: [id number] Adm Physician: Ordered by: MIKALA EVANS MD Report #: [id number] Location: ER Room/Bed: Procedure: 0419- 0014 DX/ABDOMEN-1VIEW [...] Blood (test code = 2335-8) NEGATIVE NEGATIVE [facility] Occult Lwhxy2028-97-69 07:35:00* Test Item Value Reference Range Interpretation Comments Stool Occult Blood (test code = 2335-8) NEGATIVE NEGATIVE [facility] Occult Mmrxq6541-24-11 07:35:00* Test Item Value Reference Range Interpretation Comments Stool Occult Blood (test code = 2335-8) NEGATIVE NEGATIVE [facility] Occult Ognmo4153-74-61 07:35:00* Test Item Value Reference Range Interpretation Comments Stool Occult Blood (test code = 2335-8) NEGATIVE NEGATIVE [facility] Occult Qmvuv4851-15-89 07:35:00* Test Item Value Reference Range Interpretation Comments Stool Occult Blood (test code = 2335-8) NEGATIVE NEGATIVE [facility] Vnaip7544-28-17 05:29:00* Test Item Value Reference Range Interpretation Comments Sodium Level (test code = 2951-2) 140 136-145 [facility] HospitalPotassium Kammb6774-22-42 05:29:00* Test Item Value Reference Range Interpretation Comments Potassium Level (test code = 2823-3) 4.4 3.5-5.1 [facility] HospitalChloride Wsjct5570-27-97 05:29:00* Test Item Value Reference Range Interpretation Comments Chloride Level (test code = 2075-0) 105 98-107 [facility] HospitalCarbon Dioxide Agglv6715-36-75 05:29:00* Test Item Value Reference Range Interpretation Comments Carbon Dioxide Level (test code = 2028-9) 27 22-29 [facility] HospitalAnion Aeq8250-93-38 05:29:00* Test Item Value Reference Range Interpretation Comments Anion Gap (test code = 24652-3) 12.4 8-16 [facility] HospitalBlood Urea Tclgcguz5999-73-58 05:29:00* Test Item Value Reference Range Interpretation Comments Blood Urea Nitrogen (test code = 3094-0) 10 7-26 [facility] HospitalCreatinine2019-03-10 05:29:00* Test Item Value Reference Range Interpretation Comments Creatinine (test code = 2160-0) 0.81 0.57-1.11 [facility] HospitalBUN/Creatinine Ttoie4764-58-44 05:29:00* Test Item Value Reference Range Interpretation Comments BUN/Creatinine Ratio (test code = 3097-3) 12 6-25 [facility] HospitalEstimat Glomerular Filtration Rate 2018-10-23 05:29:00* Test Item Value Reference Range Interpretation Comments Estimat Glomerular Filtration Rate (test code = 428850028) > 60 >60 Ranges were taken from the National Kidney Disease Education Program and the [facility] literature.Reference ranges:60 or greater: Gdtoxj74-61 ( for 3 consecutive months): Chronic kidney disease 15 or less: Kidney failureR[facility] HospitalGlucose Qbvrs0900-03-54 05:29:00* Test Item Value Reference Range Interpretation Comments Glucose Level (test code = GHO0511) 97 74-118 [facility] HospitalCalcium Salnv2768-52-39 05:29:00* Test Item Value Reference Range Interpretation Comments Calcium Level (test code = 13652-3) 8.9 8.4-10.2 [facility] HospitalTotal Lxbdtomrf7639-61-58 05:29:00* Test Item Value Reference Range Interpretation Comments Total Bilirubin (test code = 1975-2) 0.3 0.2-1.2 [facility] HospitalAspartate Amino Transf (AST/SGOT) 2018-10-23 05:29:00* Test Item Value Reference Range Interpretation Comments Aspartate Amino Transf (AST/SGOT) (test code = Aspartate Amino Transf (AST/SGOT)) 35 5-34 H [facility] HospitalAlanine Aminotransferase (ALT/SGPT) 2018-10-23 05:29:00* Test Item Value Reference Range Interpretation Comments Alanine Aminotransferase (ALT/SGPT) (test code = 1742-6) 54 0-55 [facility] HospitalTotal Pgisqxl9051-21-55 05:29:00* Test Item Value Reference Range Interpretation Comments Total Protein (test code = 2885-2) 7.0 6.5-8.1 [facility] HospitalAlbumin2019-03-10 05:29:00* Test Item Value Reference Range Interpretation Comments Albumin (test code = 1751-7) 3.4 3.5-5.0 L [facility] HospitalGlobulin2019-03-10 05:29:00* Test Item Value Reference Range Interpretation Comments Globulin (test code = 47312-8) 3.6 2.3-3.5 H [facility] HospitalAlbumin/Globulin Rcclw9978-90-26 05:29:00 * Test Item Value Reference Range Interpretation Comments Albumin/Globulin Ratio (test code = 1759-0) 0.9 0.8-2.0 [facility] HospitalAlkaline Ewspmvprrdb3550-18-50 05:29:00* Test Item Value Reference Range Interpretation Comments Alkaline Phosphatase (test code = 6768-6) 74 40-150 [facility] HospitalWhite Blood Ilduu0509-12-13 05:14:00* Test Item Value Reference Range Interpretation Comments White Blood Count (test code = 6690-2) 6.11 4.8-10.8 [facility] HospitalRed Blood Owtcz7550-55-07 05:14:00* Test Item Value Reference Range Interpretation Comments Red Blood Count (test code = 789-8) 3.87 3.6-5.1 [facility] HospitalHemoglobin2019-03-10 05:14:00* Test Item Value Reference Range Interpretation Comments Hemoglobin (test code = 47236-6) 11.2 12.0-16.0 L [facility] HospitalHematocrit2019-03-10 05:14:00* Test Item Value Reference Range Interpretation Comments Hematocrit (test code = 4544-3) 34.4 34.2-44.1 [facility] HospitalMean Corpuscular Iktlsk4079-79-51 05:14:00* Test Item Value Reference Range Interpretation Comments Mean Corpuscular Volume (test code = 787-2) 88.9 81-99 [facility] HospitalMean Corpuscular Mnqjcqpjek1637-78-04 05:14:00* Test Item Value Reference Range Interpretation Comments Mean Corpuscular Hemoglobin (test code = 785-6) 28.9 28-32 [facility] HospitalMean Corpuscular Hemoglobin Concent 2018-10-23 05:14:00* Test Item Value Reference Range Interpretation Comments Mean Corpuscular Hemoglobin Concent (test code = 786-4) 32.6 31-35 [facility] HospitalRed Cell Distribution Wzyis3537-94-83 05:14:00* Test Item Value Reference Range Interpretation Comments Red Cell Distribution Width (test code = 14591-1) 13.2 11.7 -14.4 [facility] HospitalPlatelet Geimi3588-65-28 05:14:00* Test Item Value Reference Range Interpretation Comments Platelet Count (test code = 777-3) 174 140-360 [facility] HospitalNeutrophils (%) (Auto)2018-10-23 05:14:00 * Test Item Value Reference Range Interpretation Comments Neutrophils (%) (Auto) (test code = 25146-4) 50.2 38.7-80.0 [facility] HospitalLymphocytes (%) (Auto)2018-10-23 05:14:00 * Test Item Value Reference Range Interpretation Comments Lymphocytes (%) (Auto) (test code = 736-9) 36.8 18.0-39.1 [facility] HospitalMonocytes (%) (Auto)2018-10-23 05:14:00* Test Item Value Reference Range Interpretation Comments Monocytes (%) (Auto) (test code = 5905-5) 7.5 4.4-11.3 [facility] HospitalEosinophils (%) (Auto)2018-10-23 05:14:00 * Test Item Value Reference Range Interpretation Comments Eosinophils (%) (Auto) (test code = 713-8) 4.9 0.0-6.0 [facility] HospitalBasophils (%) (Auto)2018-10-23 05:14:00* Test Item Value Reference Range Interpretation Comments Basophils (%) (Auto) (test code = 706-2) 0.3 0.0-1.0 [facility] HospitalIM GRANULOCYTES %2018-10-23 05:14:00* Test Item Value Reference Range Interpretation Comments IM GRANULOCYTES % (test code = IM GRANULOCYTES %) 0.3 0.0- 1.0 [facility] HospitalNeutrophils # (Auto)2018-10-23 05:14:00* Test Item Value Reference Range Interpretation Comments Neutrophils # (Auto) (test code = 751-8) 3.1 2.1-6.9 [facility] HospitalLymphocytes # (Auto)2018-10-23 05:14:00* Test Item Value Reference Range Interpretation Comments Lymphocytes # (Auto) (test code = 99330-4) 2.3 1.0-3.2 [facility] HospitalMonocytes # (Auto)2018-10-23 05:14:00* Test Item Value Reference Range Interpretation Comments Monocytes # (Auto) (test code = 742-7) 0.5 0.2-0.8 [facility] HospitalEosinophils # (Auto)2018-10-23 05:14:00* Test Item Value Reference Range Interpretation Comments Eosinophils # (Auto) (test code = 711-2) 0.3 0.0-0.4 [facility] HospitalBasophils # (Auto)2018-10-23 05:14:00* Test Item Value Reference Range Interpretation Comments Basophils # (Auto) (test code = 704-7) 0.0 0.0-0.1 [facility] HospitalAbsolute Immature Granulocyte (auto 2018-10-23 05:14:00* Test Item Value Reference Range Interpretation Comments Absolute Immature Granulocyte (auto (jesus t code = Absolute Immature Granulocyte (auto) 0.02 0-0.1 [facility] Lactoferrin (LAB)2018-10-22 22:28:00* Test Item Value Reference Range Interpretation Comments Stool Lactoferrin (LAB) (test code = 50183-9) NEGATIVE NEGATIVE Testing on stool aspirate specimens is outside product safety manager claims since specime n type not validated on this assay.[facility] Lactoferrin (LAB)2018-10-22 22:28:00* Test Item Value Reference Range Interpretation Comments Stool Lactoferrin (LAB) (test code = 63426-2) NEGATIVE NEGATIVE Testing on stool aspirate specimens is outside product safety manager claims since specime n type not validated on this assay.[facility] Lactoferrin (LAB)2018-10-22 22:28:00* Test Item Value Reference Range Interpretation Comments Stool Lactoferrin (LAB) (test code = 72474-5) NEGATIVE NEGATIVE Testing on stool aspirate specimens is outside product safety manager claims since specime n type not validated on this assay.[facility] Lactoferrin (LAB)2018-10-22 22:28:00* Test Item Value Reference Range Interpretation Comments Stool Lactoferrin (LAB) (test code = 32821-5) NEGATIVE NEGATIVE Testing on stool aspirate specimens is outside product safety manager claims since specime n type not validated on this assay.[facility] Lactoferrin (LAB)2018-10-22 22:28:00* Test Item Value Reference Range Interpretation Comments Stool Lactoferrin (LAB) (test code = 33757-5) NEGATIVE NEGATIVE Testing on stool aspirate specimens is outside product safety manager claims since specime n type not validated on this assay.[facility] LKF0922-78-26 11:16:00 [facility] [address] [address] Patient Name: SASHA POPE MR #: [id number] : 1965 Age/Sex: 53/F Req #: [id number] Adm Physician: CIRO HERNANDEZ MD Ordered by: NATTY COOK MD Report #: [id number] Location: MED/SURG2 Room/Bed: 200 Procedure: 0308- 0001 [...] ABDOMEN ACUTE SERIES W/PA CXR 2018-10-21 07:14:00 [place] [address] Patient Name: SASHA POPE MR #: [id number] : 1965 Age/Sex: 53/F Req #: [id number] Adm Physician: CIRO HERNANDEZ MD Ordered by: DEISY DE LA FUENTE MD Report #: [id number] Location: MED/SURG2 Room/Bed: [facility] Procedure: DX/ABDOMEN ACUTE SERIES W/PA CXR Exam [...] DEISY DE LA FUENTE MD CT ABDOMEN/PELVIS W2894-49-26 14:05:00 [place] [id number] [place] [address] Patient Name: SASHA POPE MR #: [id number] : 1965 Age/Sex: 53/F Req #: [id number] Adm Physician: CIRO HERNANDEZ MD Ordered by: CIRO HERNANDEZ MD Report #: [id number] Location: MED/SURG2 Room/Bed: [facility] Procedure: 0307-[address]/CT ABDOMEN/PELVIS W Exam [...] Interpretation Comments Lipase (test code = 3040-3) [facility] HospitalLactic Acid Dcqib5720-68-86 05:59:00* Test Item Value Reference Range Interpretation Comments Lactic Acid Level (test code = Lactic Acid Level) 11.9 4.5- 19.8 [facility] HospitalLactic Acid Lizsu3867-36-28 05:59:00* Test Item Value Reference Range Interpretation Comments Lactic Acid Level (test code = Lactic Acid Level) 11.9 4.5- 19.[address] [facility] Acid Juiul9091-05-90 05:59:00* Test Item Value Reference Range Interpretation Comments Lactic Acid Level (test code = Lactic Acid Level) 11.9 4.5- 19.8 [facility] Wwqrq6007-26-20 05:59:00* Test Item Value Reference Range Interpretation Comments Lactic Acid Level (test code = Lactic Acid Level) 11.9 4.5- 19.8 [facility] HospitalLactic Acid Kvfhz2417-51-35 05:59:00* Test Item Value Reference Range Interpretation Comments Lactic Acid Level (test code = Lactic Acid Level) 11.9 4.5- 19.8 [facility] HospitalCT ABD/PEL WO RYTUDTCJ-OIYY6360-00-07 01:23:00 [facility] [address] [address] Patient Name: SASHA POPE MR #: [id number] : 1965 Age/Sex: 53/F Req #: [id number] Adm Physician: Ordered by: CARLEEN ALBERT MD Report #: [id number] [facility] Room/Bed: Procedure: 030 7-0001 HOPD/CT ABD/PEL WO CONTRAST-HOPD Exam Date: 10/20/18 Exam Time: 0045 REPORT STAT US: Signed EXAM: CT Abdomen and Pelvis WITHOUT contrast INDICATION: Right upper quadrant pain. [id number] COMPARISON: CT abdomen and pelvis 05/03/2018 [...] Interpretation Comments Stool Calprotectin (test code = 00450-5) <16 0-120 Concentration Interpretation Follow-Up<16 - 50 ug/g Normal None>50 -120 ug/g Borderline Re-evaluate in 4-6 weeks >120 ug/g Abnormal Repeat as clinically indicatedPerformed at: [facility] [id number] Director: Murali Mitchell MD, Phone: [phone]. Luke[facility] Health [facility] Hospitaltool Jyftgqurqidl8165-47-98 13:59:00* Test Item Value Reference Range Interpretation Comments Stool Calprotectin (test code = 16844-6) <16 0-120 Concentration Interpretation Follow-Up<16 - 50 ug/g Normal None>50 -120 ug/g Borderline Re-evaluate in 4-6 weeks >120 ug/g Abnormal Repeat as clinically indicatedPerformed at: [facility] [id number] Director: Murali Mitchell MD, Phone: [phone] Regional Medical Centerol Mmlglkqcwktl5882-14-46 13:59:00* Test Item Value Reference Range Interpretation Comments Stool Calprotectin (test code = 72979-1) <16 0-120 Concentration Interpretation Follow-Up<16 - 50 ug/g Normal None>50 -120 ug/g Borderline Re-evaluate in 4-6 weeks >120 ug/g Abnormal Repeat as clinically indicatedPerformed at: [facility] [id number] Director: Murali Mitchell MD, Phone: [phone] Regional Medical Centerol Ntmoqkuwifuw4621-68-98 13:59:00* Test Item Value Reference Range Interpretation Comments Stool Calprotectin (test code = 56019-7) <16 0-120 Concentration Interpretation Follow-Up<16 - 50 ug/g Normal None>50 -120 ug/g Borderline Re-evaluate in 4-6 weeks >120 ug/g Abnormal Repeat as clinically indicatedPerformed at: [facility] [id number] Director: Murali Mitchell MD, Phone: [phone]. Luke's Health [facility] Hospitaltool Kjiwuqoqcppq3725-49-32 13:59:00* Test Item Value Reference Range Interpretation Comments Stool Calprotectin (test code = 55196-7) <16 0-120 Concentration Interpretation Follow-Up<16 - 50 ug/g Normal None>50 -120 ug/g Borderline Re-evaluate in 4-6 weeks >120 ug/g Abnormal Repeat as clinically indicatedPerformed at: [facility] [employer] [id number] Director: Murali Mitchell MD, Phone: [phone]. Luke's Health – [facility] Living[facility] HospitalP LUMBAR, COMPLETE MIN 4OA6069-60-56 13:44:00 [facility] [address] [address] Patient Name: SASHA POPE MR #: [id number] : 1965 Age/Sex: 53/F Req #: [id number] [facility] Physician: Ordered by: CIRO HERNANDEZ MD Report #: [id number] Location: [facility] Room/Bed: Procedure: [id number] DX/SP LUMBAR, COMPLETE MIN 4VW Exam Date: [...] 1:55 PM Dictated By: ISHMAEL KATHLEEN MD 9904 Transcribed By: GARO on 07/04/18 7900 COPY TO: CIRO HERNANDEZ MD SACRUM [id number] 13:44:00 [facility] [address] [address] Patient Name: SASHA POPE MR #: [id number] : 1965 Age/Sex: 53/F Req #: [id number] Adm Physician: Ordered by: CIRO HERNANDEZ MD Report #: [id number] Location: [facility] Room/Bed: Procedure: [id number] DX/SA ROSENDO X-RAY Exam Date: 07/04/18 Exam [...] 1:55 PM Dictated By: ISHMAEL KATHLEEN MD 3247 COPY TO: CIRO HERNANDEZ MD Clostridium Difficile Toxin A & O4081-57-46 13:03:00* Test Item Value Reference Range Interpretation Comments Clostridium Difficile Toxin A & B (test code = 653280390) NEGATIVE NEGATIVE Testing on stool aspirate specimens is outside product safety manager claims since specime n type not validated on this assay.[facility] Clostridium Difficile Toxin A & M6750-84-50 13:03:00* Test Item Value Reference Range Interpretation Comments Clostridium Difficile Toxin A & B (test code = 599809980) NEGATIVE NEGATIVE Testing on stool aspirate specimens is outside product safety manager claims since specime n type not validated on this assay.[facility] Clostridium Difficile Toxin A & R7746-58-82 13:03:00* Test Item Value Reference Range Interpretation Comments Clostridium Difficile Toxin A & B (test code = 530509627) NEGATIVE NEGATIVE Testing on stool aspirate specimens is outside product safety manager claims since specime n type not validated on this assay.[facility] Clostridium Difficile Toxin A & N8532-00-15 13:03:00* Test Item Value Reference Range Interpretation Comments Clostridium Difficile Toxin A & B (test code = 645322620) NEGATIVE NEGATIVE Testing on stool aspirate specimens is outside product safety manager claims since specime n type not validated on this assay.[facility] Clostridium Difficile Toxin A & F4911-87-82 13:03:00* Test Item Value Reference Range Interpretation Comments Clostridium Difficile Toxin A & B (test code = 433023902) NEGATIVE NEGATIVE Testing on stool aspirate specimens is outside product safety manager claims since specime n type not validated on this assay.[facility] Hospitaltool Lactoferrin (LAB)2018-06-29 14:35:00* Test Item Value Reference Range Interpretation Comments Stool Lactoferrin (LAB) (test code = 52588-5) NEGATIVE NEGATIVE Testing on stool aspirate specimens is outside product safety manager claims since specime n type not validated on this assay.[facility] Hospitalodium Dmhpg6516-12-53 05:20:00* Test Item Value Reference Range Interpretation Comments Sodium Level (test code = 2951-2) 142 136-145 [facility] HospitalPotassium Tkfza6799-83-74 05:20:00* Test Item Value Reference Range Interpretation Comments Potassium Level (test code = 2823-3) 3.8 3.5-5.1 [facility] HospitalChloride Ajwmm5597-12-37 05:20:00* Test Item Value Reference Range Interpretation Comments Chloride Level (test code = 2075-0) 109 98-107 H [facility] HospitalCarbon Dioxide Ehvcx4501-04-95 05:20:00* Test Item Value Reference Range Interpretation Comments Carbon Dioxide Level (test code = 2028-9) 23 22-29 [facility] HospitalAnion Taq7555-01-08 05:20:00* Test Item Value Reference Range Interpretation Comments Anion Gap (test code = 86073-3) 13.8 8-16 [facility] HospitalBlood Urea Cysyrfvk8818-10-61 05:20:00* Test Item Value Reference Range Interpretation Comments Blood Urea Nitrogen (test code = 3094-0) 5 7-26 L [facility] HospitalCreatinine2018-10-20 05:20:00* Test Item Value Reference Range Interpretation Comments Creatinine (test code = 2160-0) 0.79 0.57-1.11 [facility] HospitalBUN/Creatinine Bkbyx6857-17-66 05:20:00* Test Item Value Reference Range Interpretation Comments BUN/Creatinine Ratio (test code = 3097-3) 6 6-25 [facility] HospitalEstimat Glomerular Filtration Rate 2018-06-04 05:20:00* Test Item Value Reference Range Interpretation Comments Estimat Glomerular Filtration Rate (test code = 843783503) > 60 >60 Ranges were taken from the National Kidney Disease Education Program and the [facility] literature.Reference ranges:60 or greater: Abdabw14-44 ( for 3 consecutive months): Chronic kidney disease 15 or less: Kidney failureRio [facility] HospitalGlucose Zblsz3723-42-88 05:20:00* Test Item Value Reference Range Interpretation Comments Glucose Level (test code = RKQ7229) 101 74-118 [facility] HospitalCalcium Xbnhd4763-60-77 05:20:00* Test Item Value Reference Range Interpretation Comments Calcium Level (test code = 05082-6) 9.1 8.4-10.2 [facility] HospitalTotal Omtitnzrp1989-43-74 05:20:00* Test Item Value Reference Range Interpretation Comments Total Bilirubin (test code = 1975-2) 0.3 0.2-1.2 [facility] HospitalAspartate Amino Transf (AST/SGOT) 2018-06-04 05:20:00* Test Item Value Reference Range Interpretation Comments Aspartate Amino Transf (AST/SGOT) (test code = Aspartate Amino Transf (AST/SGOT)) 36 5-34 H [facility] HospitalAlanine Aminotransferase (ALT/SGPT) 2018-06-04 05:20:00* Test Item Value Reference Range Interpretation Comments Alanine Aminotransferase (ALT/SGPT) (test code = 1742-6) 41 0-55 [facility] HospitalTotal Kcaukex0145-43-27 05:20:00* Test Item Value Reference Range Interpretation Comments Total Protein (test code = 2885-2) 6.5 6.5-8.1 [facility] HospitalAlbumin2018-10-20 05:20:00* Test Item Value Reference Range Interpretation Comments Albumin (test code = 1751-7) 3.1 3.5-5.0 L [facility] HospitalGlobulin2018-10-20 05:20:00* Test Item Value Reference Range Interpretation Comments Globulin (test code = 55379-5) 3.4 2.3-3.5 [facility] HospitalAlbumin/Globulin Ergkv7079-93-29 05:20:00 * Test Item Value Reference Range Interpretation Comments Albumin/Globulin Ratio (test code = 1759-0) 0.9 0.8-2.0 [facility] HospitalAlkaline Dtmmpbfvcem6191-96-67 05:20:00* Test Item Value Reference Range Interpretation Comments Alkaline Phosphatase (test code = 6768-6) 66 40-150 [facility] HospitalWhite Blood Kyush5779-54-37 05:17:00* Test Item Value Reference Range Interpretation Comments White Blood Count (test code = 6690-2) 5.28 4.8-10.8 [facility] HospitalRed Blood Gsafc4534-65-94 05:17:00* Test Item Value Reference Range Interpretation Comments Red Blood Count (test code = 789-8) 3.82 3.6-5.1 [facility] HospitalHemoglobin2018-10-20 05:17:00* Test Item Value Reference Range Interpretation Comments Hemoglobin (test code = 08435-3) 10.6 12.0-16.0 L [facility] HospitalHematocrit2018-10-20 05:17:00* Test Item Value Reference Range Interpretation Comments Hematocrit (test code = 4544-3) 32.9 34.2-44.1 L [facility] HospitalMean Corpuscular Lhjgyh2790-62-35 05:17:00* Test Item Value Reference Range Interpretation Comments Mean Corpuscular Volume (test code = 787-2) 86.1 81-99 [facility] HospitalMean Corpuscular Jkgfvyhvbs0739-87-30 05:17:00* Test Item Value Reference Range Interpretation Comments Mean Corpuscular Hemoglobin (test code = 785-6) 27.7 28-32 L [facility] HospitalMean Corpuscular Hemoglobin Concent 2018-06-04 05:17:00* Test Item Value Reference Range Interpretation Comments Mean Corpuscular Hemoglobin Concent (test code = 786-4) 32.2 31-35 [facility] HospitalRed Cell Distribution Snhmx9859-60-25 05:17:00* Test Item Value Reference Range Interpretation Comments Red Cell Distribution Width (test code = 35230-0) 15.5 11.7 -14.4 H [facility] HospitalPlatelet Jcxqu2468-47-91 05:17:00* Test Item Value Reference Range Interpretation Comments Platelet Count (test code = 777-3) 169 140-360 [facility] HospitalNeutrophils (%) (Auto)2018-06-04 05:17:00 * Test Item Value Reference Range Interpretation Comments Neutrophils (%) (Auto) (test code = 59761-7) 53.2 38.7-80.0 [facility] HospitalLymphocytes (%) (Auto)2018-06-04 05:17:00 * Test Item Value Reference Range Interpretation Comments Lymphocytes (%) (Auto) (test code = 736-9) 35.6 18.0-39.1 [facility] HospitalMonocytes (%) (Auto)2018-06-04 05:17:00* Test Item Value Reference Range Interpretation Comments Monocytes (%) (Auto) (test code = 5905-5) 7.6 4.4-11.3 [facility] HospitalEosinophils (%) (Auto)2018-06-04 05:17:00 * Test Item Value Reference Range Interpretation Comments Eosinophils (%) (Auto) (test code = 713-8) 3.2 0.0-6.0 [facility] HospitalBasophils (%) (Auto)2018-06-04 05:17:00* Test Item Value Reference Range Interpretation Comments Basophils (%) (Auto) (test code = 706-2) 0.4 0.0-1.0 [facility] HospitalIM GRANULOCYTES %2018-06-04 05:17:00* Test Item Value Reference Range Interpretation Comments IM GRANULOCYTES % (test code = IM GRANULOCYTES %) 0.0 0.0- 1.0 [facility] HospitalNeutrophils # (Auto)2018-06-04 05:17:00* Test Item Value Reference Range Interpretation Comments Neutrophils # (Auto) (test code = 751-8) 2.8 2.1-6.9 [facility] HospitalLymphocytes # (Auto)2018-06-04 05:17:00* Test Item Value Reference Range Interpretation Comments Lymphocytes # (Auto) (test code = 50685-5) 1.9 1.0-3.2 [facility] HospitalMonocytes # (Auto)2018-06-04 05:17:00* Test Item Value Reference Range Interpretation Comments Monocytes # (Auto) (test code = 742-7) 0.4 0.2-0.8 [facility] HospitalEosinophils # (Auto)2018-06-04 05:17:00* Test Item Value Reference Range Interpretation Comments Eosinophils # (Auto) (test code = 711-2) 0.2 0.0-0.4 [facility] HospitalBasophils # (Auto)2018-06-04 05:17:00* Test Item Value Reference Range Interpretation Comments Basophils # (Auto) (test code = 704-7) 0.0 0.0-0.1 [facility] HospitalAbsolute Immature Granulocyte (auto 2018-06-04 05:17:00* Test Item Value Reference Range Interpretation Comments Absolute Immature Granulocyte (auto (jesus t code = Absolute Immature Granulocyte (auto) 0 0-0.1 [facility] Hospitaltool Occult Eeqya4566-56-43 12:23:00* Test Item Value Reference Range Interpretation Comments Stool Occult Blood (test code = 2335-8) NEGATIVE NEGATIVE [facility] HospitalUS ABDOMEN OVWCDPAF6648-57-20 09:29:00 [facility] [address] [place] [address] Patient Name: SASHA POPE MR #: [id number] : 1965 Age/Sex: 53/F Req #: [id number] Adm Physician: CIRO HERNANDEZ MD Ordered by: ICRO HERNANDEZ MD Report #: [id number] Location: [facility] Room/Bed: [place] [address] Procedure: [id number] US/U S ABDOMEN COMPLETE Exam Date: Exam [...] HERNANDEZ MD ABDOMEN COMP INCL UPR or NXCMB1450-65-83 03:05:00 [place] [address] Patient Name: SASHA POPE MR #: [id number] : 1965 Age/Sex: 53/F Req #: [id number] Adm Physician: CIRO HERNANDEZ MD Ordered by: CIRO HERNANDEZ MD Report #: [id number] Location: [facility] Room/Bed: [place] [address] Procedure: [id number] DX/A BDOMEN COMP INCL UPR or DECUB [...] PY TO: CIRO HERNANDEZ MD Erythrocyte Sedimentation Jvxn0565-90-25 21:02:00* Test Item Value Reference Range Interpretation Comments Erythrocyte Sedimentation Rate (test code = 4537-7) 41 0- 20 H [facility] HospitalErythrocyte Sedimentation Wprb8828-28-70 21:02:00* Test Item Value Reference Range Interpretation Comments Erythrocyte Sedimentation Rate (test code = 4537-7) 41 0- 20 H [facility] HospitalErythrocyte Sedimentation Tvcq1626-84-80 21:02:00* Test Item Value Reference Range Interpretation Comments Erythrocyte Sedimentation Rate (test code = 4537-7) 41 0- 20 H [facility] HospitalErythrocyte Sedimentation Qemj8132-67-64 21:02:00* Test Item Value Reference Range Interpretation Comments Erythrocyte Sedimentation Rate (test code = 4537-7) 41 0- 20 H [facility] HospitalAmylase Gaozx1461-76-36 20:51:00* Test Item Value Reference Range Interpretation Comments Amylase Level (test code = 1798-8) 63 25-125 [facility] HospitalLipase2018-10-18 20:51:00* Test Item Value Reference Range Interpretation Comments Lipase (test code = 3040-3) 16 8-78 [facility] HospitalAmylase Zcjzv4567-21-45 20:51:00* Test Item Value Reference Range Interpretation Comments Amylase Level (test code = 1798-8) 63 25-125 [facility] HospitalAmylase Rimuc4947-86-54 20:51:00* Test Item Value Reference Range Interpretation Comments Amylase Level (test code = 1798-8) 63 25-125 [facility] HospitalAmylase Xrzca8995-62-33 20:51:00* Test Item Value Reference Range Interpretation Comments Amylase Level (test code = 1798-8) 63 25-125 [facility] HospitalUrine LNK0911-96-52 20:33:00* Test Item Value Reference Range Interpretation Comments Urine WBC (test code = 5821-4) NONE 0-5 [facility] HospitalUrine NOR0134-90-65 20:33:00* Test Item Value Reference Range Interpretation Comments Urine RBC (test code = 17999-9) NONE 0-5 [facility] HospitalUrine Xsqxaflc5428-01-29 20:33:00* Test Item Value Reference Range Interpretation Comments Urine Bacteria (test code = 61019-7) FEW NONE [facility] HospitalUrine Epithelial Vqlne9639-84-53 20:33:00 * Test Item Value Reference Range Interpretation Comments Urine Epithelial Cells (test code = 79723-2) MODERATE NONE [facility] HospitalUrine PJG1062-81-73 20:33:00* Test Item Value Reference Range Interpretation Comments Urine WBC (test code = 5821-4) NONE 0-5 [facility] HospitalUrine NVU9375-23-95 20:33:00* Test Item Value Reference Range Interpretation Comments Urine RBC (test code = 06293-0) NONE 0-5 [facility] HospitalUrine Bzwjvruv4189-87-58 20:33:00* Test Item Value Reference Range Interpretation Comments Urine Bacteria (test code = 50615-5) FEW NONE [facility] HospitalUrine Epithelial Ychjp0376-82-72 20:33:00 * Test Item Value Reference Range Interpretation Comments Urine Epithelial Cells (test code = 85451-4) MODERATE NONE [facility] HospitalUrine Doyfn7756-67-60 20:23:00* Test Item Value Reference Range Interpretation Comments Urine Color (test code = 5778-6) YELLOW YELLOW [facility] HospitalUrine Estjdzc1026-32-75 20:23:00* Test Item Value Reference Range Interpretation Comments Urine Clarity (test code = 88063-1) SL CLOUDY CLEAR [facility] HospitalUrine Specific Nxxdmld4970-72-59 20:23:00 * Test Item Value Reference Range Interpretation Comments Urine Specific Deane (test code = 5811-5) 1.005 1.010-1.02 5 L [facility] HospitalUrine cF3520-88-50 20:23:00* Test Item Value Reference Range Interpretation Comments Urine pH (test code = 49480-1) 6 5-7 [facility] HospitalU[facility] Leukocyte Rivdnbtl4951-25-23 20:23:00* Test Item Value Reference Range Interpretation Comments Urine Leukocyte Esterase (test code = 5799-2) NEGATIVE NEGATIVE [facility] Piypufd1818-60-25 20:23:00* Test Item Value Reference Range Interpretation Comments Urine Nitrite (test code = 61026-1) NEGATIVE NEGATIVE [facility] Iplkcjm4382-94-15 20:23:00* Test Item Value Reference Range Interpretation Comments Urine Protein (test code = 5804-0) NEGATIVE NEGATIVE [facility] Glucose (UA)2018-06-02 20:23:00* Test Item Value Reference Range Interpretation Comments Urine Glucose (UA) (test code = 2349-9) NEGATIVE NEGATIVE [facility] HospitalUrine Ltekihi5956-91-26 20:23:00* Test Item Value Reference Range Interpretation Comments Urine Ketones (test code = 83386-0) NEGATIVE NEGATIVE [facility] HospitalUrine Oemmoanhzmva3535-11-77 20:23:00* Test Item Value Reference Range Interpretation Comments Urine Urobilinogen (test code = 54345-7) 0.2 0.2-1 [facility] HospitalUrine Byetpoukf1940-35-15 20:23:00* Test Item Value Reference Range Interpretation Comments Urine Bilirubin (test code = 1978-6) NEGATIVE NEGATIVE [facility] Eimsy7807-01-64 20:23:00* Test Item Value Reference Range Interpretation Comments Urine Blood (test code = 60646-6) TRACE NEGATIVE H [facility] HospitalUrine Doivb4342-68-23 20:23:00* Test Item Value Reference Range Interpretation Comments Urine Color (test code = 5778-6) YELLOW YELLOW [facility] HospitalUrine Emuntkm9293-69-12 20:23:00* Test Item Value Reference Range Interpretation Comments Urine Clarity (test code = 87419-8) SL CLOUDY CLEAR [facility] HospitalUrine Specific Ckzwbiu1652-95-31 20:23:00 * Test Item Value Reference Range Interpretation Comments Urine Specific Deane (test code = 5811-5) 1.005 1.010-1.02 5 L [facility] HospitalUrine gV6610-73-21 20:23:00* Test Item Value Reference Range Interpretation Comments Urine pH (test code = 35030-8) 6 5-7 [facility] HospitalU[facility] Leukocyte Odyhgwoo4321-12-77 20:23:00* Test Item Value Reference Range Interpretation Comments Urine Leukocyte Esterase (test code = 5799-2) NEGATIVE NEGATIVE [facility] HospitalUrine Dtoskdi8355-80-22 20:23:00* Test Item Value Reference Range Interpretation Comments Urine Nitrite (test code = 52953-8) NEGATIVE NEGATIVE [facility] HospitalUrine Odxplba3753-58-67 20:23:00* Test Item Value Reference Range Interpretation Comments Urine Protein (test code = 5804-0) NEGATIVE NEGATIVE [facility] HospitalUrine Glucose (UA)2018-06-02 20:23:00* Test Item Value Reference Range Interpretation Comments Urine Glucose (UA) (test code = 2349-9) NEGATIVE NEGATIVE [facility] HospitalUrine Qzrmyaz0540-99-27 20:23:00* Test Item Value Reference Range Interpretation Comments Urine Ketones (test code = 87247-8) NEGATIVE NEGATIVE [facility] HospitalU[facility] Ybovregkvuow6433-09-07 20:23:00* Test Item Value Reference Range Interpretation Comments Urine Urobilinogen (test code = 40519-7) 0.2 0.2-1 [facility] HospitalUrine Wyrhowtke8868-35-77 20:23:00* Test Item Value Reference Range Interpretation Comments Urine Bilirubin (test code = 1978-6) NEGATIVE NEGATIVE [facility] HospitalUrine Ghrrs7367-14-45 20:23:00* Test Item Value Reference Range Interpretation Comments Urine Blood (test code = 52235-2) TRACE NEGATIVE H [facility]NOT [facility]ABLE)2018-06-02 19:48:00 [facility] [address] [place] [address] Patient Name: SASHA POPE MR #: [id number] : 1965 Age/Sex: 53/F Req #: [id number] Adm Physician: CIRO HERNANDEZ MD Ordered by: CIRO HERNANDEZ MD Report #: [id number] Location: 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).Technique: [...] 3:00 pmCT ABD/PEL WO CONTRAST-HOPD 2018-05-03 21:04:00 [place] [address] Patient Name: SASHA POPE MR #: [id number] : 1965 Age/Sex: 53/F Req #: [id number] Adm Physician: Ordered by: DARREN PERSAUD MD Report #: [id number] Location: [facility] Room/Bed: Procedure: [id number] HOPD/CT ABD/PEL WO CONTRAS T-HOPD Exam Date: 05/03/18 Exam Time: 1920 REP ORT STATUS: Signed EXAM: CT ABDOMEN AND PELVIS WITHOUT IV CONTRAST INDICATI ON: Right lower quadrant pain, history of kidney cancer COMPARISON: CT of th e abdomen and pelvis with IV contrast [...] WINN MD CT Abdomen and Pelvis w/ Knbxulbx6527-57-95 22:23:12 Patient: SASHA POPE am Date/Time03/03/2018 22:08 CDTReason for ExamFeverReportCT SCAN OF THE ABDOMEN AND PELVIS WITH CONTRASTLocation: [id number] HISTORY: Abdominal pain and fev er prior [...] VDictated DT/TM: 03/03/2018 10:12 pmSigned by: Shay epoples MD, Maria VSigned (Electronic Signature): 03/03/2018 10:23 pmXR Chest 1 View Nxrhhzh2649-64-50 20:28:10Patient: SASHA POPE Date/Time03/03/2018 20:24 CDTReason for ExamFeverReportCHEST X-RAY 1 VIEWLocation: [id number] HISTORY: FeverTechnique:A single frontal view of the chest was obtained. Comparison made to prior study February 18, 2018Findings:Mild degenerative spurring is present at the right shoulder. The aortic, hilar, and cardiac outlines are normal. The lungs are clear of infiltrates or nodules. No pneumothorax. No pleural effusions. Small biomedical service engineer overlies upper half of the cardiac silhouette.IMPRESSION:No acute findings. Clear lungs. Final Dictated by: MD Rivera Maria VDictated DT/TM: 03/03/2018 8:27 pmSigned by: MD Rivera Maria VSigned (Electronic Signature): 03/03/2018 8:28 pmXR Chest 1 View Evuntcl5243-10-35 08:07:13Patient: SASHA POPE Date/Time02/18/2018 05:41 CDTReason for Examchest tube removal;Other (please specify)VgaejnU74LSCY: XR Chest 1 View FrontalHISTORY: Other (please [...] (Electronic Signature): 02/18/2018 8:07 amXR Chest 2 Xqgrq7456-68-03 15:13:02Patient: SASHA POPE Date/Time02/17/2018 10:16 CDTReason for ExamChest tube placementReportDictation location N67Nyioq 2 views.HISTORY: Chest tube placementCOMMENT: Compared to [...] chest. Final Dictated by: MD Perera Phebe CDipeeweeated DT/TM: 02/17/2018 3:11 pmSigned by: MD Perera Phebe CSigned (Electronic Signature): 02/17/2018 3:13 pmXR Chest 1 View Ywtatex2452-21-92 07:48:53Patient: SASHA POPE Date/Time02/17/2018 05:53 CDTReason for ExamLine nmbgapbmbDgehulO82RDEY: XR Chest 1 View FrontalHISTORY: Line placementCOMPARISON: [...] Signature): 02/17/2018 7:48 amXR Chest 1 View Tristrg4414-30-19 09:03:54Patient: SASHA POPE Date/Time02/16/2018 08:39 CDTReason for [...] Signature): 02/16/2018 9:03 amXR Chest 1 View Owoudtt4898-89-98 14:09:46 Patient: SASHA POPE am Date/Time02/15/2018 13:54 [...] (Electronic Signature): 02/15/2018 2:09 pmXR Chest 2 Lxima8639-62-24 12:23:28Patient: SASHA POPE Date/Time01/31/2018 12:11 CDTReason for [...] (Electronic S ignature): 01/31/2018 12:23 pmCT Biopsy Xhsrn9062-61-24 13:40:17Patient: SASHA POPE Date/Time01/20/2018 11:30 CDTReason for ExamD30.00ReportCT GUIDED CORE NEEDLE B IOPSY OF A LEFT RENAL MASSCLINICAL INDICATION: D30.00OPERATORS: Alan Tee MD SEDATION: Under physician supervision, intravenous Versed and fentanyl were admi nistered for moderate sedation. Pulse oximetry, heart rate, and blood pressure w ere continuously monitored by a dedicated IR trained nurse. The physician spent 30 minutes of continuous mzvf-bc-ujtq sedation time with the patient.TECHNIQUE:T he risks, [...] core needle biopsies were made. The pa thologist/test engineering intern present on site determined the sample to [...] Level (test code = 2951-2) 137 136-145 [facility] HospitalPotassium Augxe8122-13-38 01:14:00* Test Item Value Reference Range Interpretation Comments Potassium Level (test code = 2823-3) 3.6 3.5-5.1 [facility] HospitalChloride Tmumy8279-81-80 01:14:00* Test Item Value Reference Range Interpretation Comments Chloride Level (test code = 2075-0) 105 98-107 [facility] HospitalCarbon Dioxide Iqzwi8801-35-34 01:14:00* Test Item Value Reference Range Interpretation Comments Carbon Dioxide Level (test code = 2028-9) 21 22-29 L [facility] HospitalAnion Ire0521-01-94 01:14:00* Test Item Value Reference Range Interpretation Comments Anion Gap (test code = 84395-0) 14.6 8-16 [facility] HospitalBlood Urea Hdiangkk7192-69-08 01:14:00* Test Item Value Reference Range Interpretation Comments Blood Urea Nitrogen (test code = 3094-0) 18 7-26 [facility] HospitalCreatinine2018-02-17 01:14:00* Test Item Value Reference Range Interpretation Comments Creatinine (test code = 2160-0) 0.76 0.57-1.11 [facility] HospitalBUN/Creatinine Frvij5148-03-07 01:14:00* Test Item Value Reference Range Interpretation Comments BUN/Creatinine Ratio (test code = 3097-3) 24 6-25 [facility] HospitalEstimat Glomerular Filtration Rate 2017-10-02 01:14:00* Test Item Value Reference Range Interpretation Comments Estimat Glomerular Filtration Rate (test code = 51588-9) 60- >60 Ranges were taken from the National Kidney Disease Education Program and the [facility] literature.Reference ranges:60 or greater: Ylhxgp19-00 ( for 3 consecutive months): Chronic kidney disease 15 or less: Kidney failureRio [facility] Regional HospitalGlucose Opsmo0099-81-45 01:14:00* Test Item Value Reference Range Interpretation Comments Glucose Level (test code = YXV1144) 117 74-118 [facility] HospitalCalcium Horzv7110-41-11 01:14:00* Test Item Value Reference Range Interpretation Comments Calcium Level (test code = 82736-3) 8.8 8.4-10.2 [facility] HospitalTotal Hlkqddajk6337-23-93 01:14:00* Test Item Value Reference Range Interpretation Comments Total Bilirubin (test code = 1975-2) -0.3 0.2-1.2 [facility] HospitalAspartate Amino Transf (AST/SGOT) 2017-10-02 01:14:00* Test Item Value Reference Range Interpretation Comments Aspartate Amino Transf (AST/SGOT) (test code = Aspartate Amino Transf (AST/SGOT)) 31 5-34 [facility] HospitalAlanine Aminotransferase (ALT/SGPT) 2017-10-02 01:14:00* Test Item Value Reference Range Interpretation Comments Alanine Aminotransferase (ALT/SGPT) (test code = 1742-6) 36 0-55 [facility] HospitalTotal Qnseadl9547-18-02 01:14:00* Test Item Value Reference Range Interpretation Comments Total Protein (test code = 2885-2) 7.8 6.5-8.1 [facility] HospitalAlbumin2018-02-17 01:14:00* Test Item Value Reference Range Interpretation Comments Albumin (test code = 1751-7) 3.5 3.5-5.0 [facility] HospitalGlobulin2018-02-17 01:14:00* Test Item Value Reference Range Interpretation Comments Globulin (test code = 31962-6) 4.3 2.3-3.5 H [facility] HospitalAlbumin/Globulin Udcqv8166-22-41 01:14:00 * Test Item Value Reference Range Interpretation Comments Albumin/Globulin Ratio (test code = 1759-0) 0.8 0.8-2.0 [facility] HospitalAlkaline Yonfsqnkali1557-01-32 01:14:00* Test Item Value Reference Range Interpretation Comments Alkaline Phosphatase (test code = 6768-6) 80 40-150 [facility] HospitalAmylase Bqmtw4139-37-72 01:14:00* Test Item Value Reference Range Interpretation Comments Amylase Level (test code = 1798-8) 113 25-125 [facility] HospitalLipase2018-02-17 01:14:00* Test Item Value Reference Range Interpretation Comments Lipase (test code = 3040-3) 31 8-78 [facility] Hospitalodium Pjuoa7971-84-11 01:14:00* Test Item Value Reference Range Interpretation Comments Sodium Level (test code = 2951-2) 137 136-145 [facility] HospitalPotassium Yueow5771-49-78 01:14:00* Test Item Value Reference Range Interpretation Comments Potassium Level (test code = 2823-3) 3.6 3.5-5.1 [facility] HospitalChloride Ozyex4537-09-10 01:14:00* Test Item Value Reference Range Interpretation Comments Chloride Level (test code = 2075-0) 105 98-107 [facility] HospitalCarbon Dioxide Htcdj8349-86-78 01:14:00* Test Item Value Reference Range Interpretation Comments Carbon Dioxide Level (test code = 2028-9) 21 22-29 L [facility] HospitalAnion Kty5322-55-63 01:14:00* Test Item Value Reference Range Interpretation Comments Anion Gap (test code = 76922-5) 14.6 8-16 [facility] HospitalBlood Urea Nmnnqvsy7394-60-19 01:14:00* Test Item Value Reference Range Interpretation Comments Blood Urea Nitrogen (test code = 3094-0) 18 7-26 [facility] HospitalCreatinine2018-02-17 01:14:00* Test Item Value Reference Range Interpretation Comments Creatinine (test code = 2160-0) 0.76 0.57-1.11 [facility] HospitalBUN/Creatinine Bcrqc0238-92-05 01:14:00* Test Item Value Reference Range Interpretation Comments BUN/Creatinine Ratio (test code = 3097-3) 24 6-25 [facility] HospitalEstimat Glomerular Filtration Rate 2017-10-02 01:14:00* Test Item Value Reference Range Interpretation Comments Estimat Glomerular Filtration Rate (test code = 351158094) 60- >60 Ranges were taken from the National Kidney Disease Education Program and the [facility] literature.Reference ranges:60 or greater: Evgjhz51-23 ( for 3 consecutive months): Chronic kidney disease 15 or less: Kidney failureRio [facility] HospitalGlucose Jyepi8263-90-37 01:14:00* Test Item Value Reference Range Interpretation Comments Glucose Level (test code = NAS3644) 117 74-118 [facility] HospitalCalcium Vctas7934-86-67 01:14:00* Test Item Value Reference Range Interpretation Comments Calcium Level (test code = 08403-8) 8.8 8.4-10.2 [facility] HospitalTotal Rojwxdnvw1146-67-21 01:14:00* Test Item Value Reference Range Interpretation Comments Total Bilirubin (test code = 1975-2) -0.3 0.2-1.2 [facility] HospitalAspartate Amino Transf (AST/SGOT) 2017-10-02 01:14:00* Test Item Value Reference Range Interpretation Comments Aspartate Amino Transf (AST/SGOT) (test code = Aspartate Amino Transf (AST/SGOT)) 31 5-34 [facility] HospitalAlanine Aminotransferase (ALT/SGPT) 2017-10-02 01:14:00* Test Item Value Reference Range Interpretation Comments Alanine Aminotransferase (ALT/SGPT) (test code = 1742-6) 36 0-55 [facility] HospitalTotal Abgtptq9077-00-21 01:14:00* Test Item Value Reference Range Interpretation Comments Total Protein (test code = 2885-2) 7.8 6.5-8.1 [facility] HospitalAlbumin2018-02-17 01:14:00* Test Item Value Reference Range Interpretation Comments Albumin (test code = 1751-7) 3.5 3.5-5.0 [facility] HospitalGlobulin2018-02-17 01:14:00* Test Item Value Reference Range Interpretation Comments Globulin (test code = 37000-2) 4.3 2.3-3.5 H [facility] HospitalAlbumin/Globulin Jifoo1104-81-21 01:14:00 * Test Item Value Reference Range Interpretation Comments Albumin/Globulin Ratio (test code = 1759-0) 0.8 0.8-2.0 [facility] HospitalAlkaline Gcvwhllxtat8565-23-62 01:14:00* Test Item Value Reference Range Interpretation Comments Alkaline Phosphatase (test code = 6768-6) 80 40-150 [facility] HospitalAmylase Qhxhh6545-13-87 01:14:00* Test Item Value Reference Range Interpretation Comments Amylase Level (test code = 1798-8) 113 25-125 [facility] HospitalLipase2018-02-17 01:14:00* Test Item Value Reference Range Interpretation Comments Lipase (test code = 3040-3) 31 8-78 [facility] HospitalUrine LHT5972-20-67 00:59:00* Test Item Value Reference Range Interpretation Comments Urine WBC (test code = 5821-4) 0-5 0-5 [facility] HospitalUrine TKA8199-70-83 00:59:00* Test Item Value Reference Range Interpretation Comments Urine RBC (test code = 92619-3) 0-5 0-5 [facility] HospitalUrine Ncdlektw4445-08-86 00:59:00* Test Item Value Reference Range Interpretation Comments Urine Bacteria (test code = 72391-6) RARE NONE [facility] HospitalUrine Epithelial Cdpkn5984-39-77 00:59:00 * Test Item Value Reference Range Interpretation Comments Urine Epithelial Cells (test code = 42105-3) FEW NONE [facility] HospitalUrine HOG9512-67-04 00:59:00* Test Item Value Reference Range Interpretation Comments Urine WBC (test code = 5821-4) 0-5 0-5 [facility] HospitalU[facility] DCC5626-43-56 00:59:00* Test Item Value Reference Range Interpretation Comments Urine RBC (test code = 48813-2) 0-5 0-5 [facility] HospitalUrine Orarqkbi3201-04-65 00:59:00* Test Item Value Reference Range Interpretation Comments Urine Bacteria (test code = 57420-9) RARE NONE [facility] Epithelial Sders8401-23-87 00:59:00 * Test Item Value Reference Range Interpretation Comments Urine Epithelial Cells (test code = 38476-4) FEW NONE [facility] HospitalUrine Rqbll7916-08-00 00:54:00* Test Item Value Reference Range Interpretation Comments Urine Color (test code = 5778-6) YELLOW YELLOW [facility] Afxolxk9707-93-96 00:54:00* Test Item Value Reference Range Interpretation Comments Urine Clarity (test code = 62734-2) CLEAR CLEAR [facility] Specific Gtmwksl4733-94-49 00:54:00 * Test Item Value Reference Range Interpretation Comments Urine Specific Deane (test code = 5811-5) 1.005 1.010-1.02 5 L [facility] HospitalUrine lL2803-67-46 00:54:00* Test Item Value Reference Range Interpretation Comments Urine pH (test code = 47598-8) 6.5 5-7 [facility] HospitalU[facility] Leukocyte Eeqcegxy3574-96-70 00:54:00* Test Item Value Reference Range Interpretation Comments Urine Leukocyte Esterase (test code = 5799-2) NEGATIVE NEGATIVE [facility] HospitalU[facility] Frozccv7322-52-84 00:54:00* Test Item Value Reference Range Interpretation Comments Urine Nitrite (test code = 93926-6) NEGATIVE NEGATIVE [facility] HospitalU[facility] Whlkqjg8592-66-56 00:54:00* Test Item Value Reference Range Interpretation Comments Urine Protein (test code = 5804-0) NEGATIVE NEGATIVE [facility] Glucose (UA)2017-10-02 00:54:00* Test Item Value Reference Range Interpretation Comments Urine Glucose (UA) (test code = 2349-9) NEGATIVE NEGATIVE [facility] HospitalU[facility] Kaprgmf0115-25-02 00:54:00* Test Item Value Reference Range Interpretation Comments Urine Ketones (test code = 94593-0) NEGATIVE NEGATIVE [facility] HospitalUrine Uuwjpoyunqrm0920-56-03 00:54:00* Test Item Value Reference Range Interpretation Comments Urine Urobilinogen (test code = 05266-4) 0.2 0.2-1 [facility] HospitalUrine Rwrfzkdzd6028-31-30 00:54:00* Test Item Value Reference Range Interpretation Comments Urine Bilirubin (test code = 1978-6) NEGATIVE NEGATIVE [facility] HospitalU[facility] Lxolt5172-13-75 00:54:00* Test Item Value Reference Range Interpretation Comments Urine Blood (test code = 78204-4) NEGATIVE NEGATIVE [facility] HospitalU[facility] Gjzyv1743-72-13 00:54:00* Test Item Value Reference Range Interpretation Comments Urine Color (test code = 5778-6) YELLOW YELLOW [facility] HospitalU[facility] Nylgvsx8492-87-11 00:54:00* Test Item Value Reference Range Interpretation Comments Urine Clarity (test code = 04052-3) CLEAR CLEAR [facility] HospitalU[facility] Specific Tweclir4601-91-27 00:54:00 * Test Item Value Reference Range Interpretation Comments Urine Specific Deane (test code = 5811-5) 1.005 1.010-1.02 5 L [facility] HospitalUrine xU6470-01-58 00:54:00* Test Item Value Reference Range Interpretation Comments Urine pH (test code = 69109-6) 6.5 5-7 [facility] HospitalU[facility] Leukocyte Akfrcois8624-90-60 00:54:00* Test Item Value Reference Range Interpretation Comments Urine Leukocyte Esterase (test code = 5799-2) NEGATIVE NEGATIVE [facility] HospitalU[facility] Kgvobtg1168-72-35 00:54:00* Test Item Value Reference Range Interpretation Comments Urine Nitrite (test code = 06100-5) NEGATIVE NEGATIVE [facility] HospitalUrine Spxwaou8294-48-32 00:54:00* Test Item Value Reference Range Interpretation Comments Urine Protein (test code = 5804-0) NEGATIVE NEGATIVE [facility] HospitalUrine Glucose (UA)2017-10-02 00:54:00* Test Item Value Reference Range Interpretation Comments Urine Glucose (UA) (test code = 2349-9) NEGATIVE NEGATIVE [facility] HospitalUrine Yavkkwh7054-89-03 00:54:00* Test Item Value Reference Range Interpretation Comments Urine Ketones (test code = 34582-5) NEGATIVE NEGATIVE [facility] HospitalU[facility] Sqxxynbexoge3369-57-19 00:54:00* Test Item Value Reference Range Interpretation Comments Urine Urobilinogen (test code = 51818-8) 0.2 0.2-1 [facility] HospitalU[facility] Khkoicdgw4145-36-09 00:54:00* Test Item Value Reference Range Interpretation Comments Urine Bilirubin (test code = 1978-6) NEGATIVE NEGATIVE [facility] HospitalUrine Emrpv2856-55-95 00:54:00* Test Item Value Reference Range Interpretation Comments Urine Blood (test code = 30339-2) NEGATIVE NEGATIVE [facility] HospitalWhite Blood Jjrym0996-77-43 00:53:00* Test Item Value Reference Range Interpretation Comments White Blood Count (test code = 6690-2) 8.39 4.8-10.8 [facility] HospitalRed Blood Uryxx7323-14-93 00:53:00* Test Item Value Reference Range Interpretation Comments Red Blood Count (test code = 789-8) 4.23 3.6-5.1 [facility] HospitalHemoglobin2018-02-17 00:53:00* Test Item Value Reference Range Interpretation Comments Hemoglobin (test code = 51728-7) 9.8 12.0-16.0 L [facility] HospitalHematocrit2018-02-17 00:53:00* Test Item Value Reference Range Interpretation Comments Hematocrit (test code = 4544-3) 31.9 34.2-44.1 L [facility] HospitalMean Corpuscular Stecqi4188-53-42 00:53:00* Test Item Value Reference Range Interpretation Comments Mean Corpuscular Volume (test code = 787-2) 75.4 81-99 L [facility] HospitalMean Corpuscular Lhawgdbibg6169-20-40 00:53:00* Test Item Value Reference Range Interpretation Comments Mean Corpuscular Hemoglobin (test code = 785-6) 23.2 28-32 L [facility] HospitalMean Corpuscular Hemoglobin Concent 2017-10-02 00:53:00* Test Item Value Reference Range Interpretation Comments Mean Corpuscular Hemoglobin Concent (test code = 786-4) 30.7 31-35 L [facility] HospitalRed Cell Distribution Xpede3014-04-36 00:53:00* Test Item Value Reference Range Interpretation Comments Red Cell Distribution Width (test code = 48672-5) 17.0 11.7 -14.4 H [facility] HospitalPlatelet Dyidz3311-94-66 00:53:00* Test Item Value Reference Range Interpretation Comments Platelet Count (test code = 777-3) 246 140-360 [facility] HospitalNeutrophils (%) (Auto)2017-10-02 00:53:00 * Test Item Value Reference Range Interpretation Comments Neutrophils (%) (Auto) (test code = 83325-0) 51.3 38.7-80.0 [facility] HospitalLymphocytes (%) (Auto)2017-10-02 00:53:00 * Test Item Value Reference Range Interpretation Comments Lymphocytes (%) (Auto) (test code = 736-9) 37.8 18.0-39.1 [facility] HospitalMonocytes (%) (Auto)2017-10-02 00:53:00* Test Item Value Reference Range Interpretation Comments Monocytes (%) (Auto) (test code = 5905-5) 6.1 4.4-11.3 [facility] HospitalEosinophils (%) (Auto)2017-10-02 00:53:00 * Test Item Value Reference Range Interpretation Comments Eosinophils (%) (Auto) (test code = 713-8) 4.4 0.0-6.0 [facility] HospitalBasophils (%) (Auto)2017-10-02 00:53:00* Test Item Value Reference Range Interpretation Comments Basophils (%) (Auto) (test code = 706-2) 0.2 0.0-1.0 [facility] HospitalIM GRANULOCYTES %2017-10-02 00:53:00* Test Item Value Reference Range Interpretation Comments IM GRANULOCYTES % (test code = IM GRANULOCYTES %) 0.2 0.0- 1.0 [facility] HospitalNeutrophils # (Auto)2017-10-02 00:53:00* Test Item Value Reference Range Interpretation Comments Neutrophils # (Auto) (test code = 751-8) 4.3 2.1-6.9 [facility] HospitalLymphocytes # (Auto)2017-10-02 00:53:00* Test Item Value Reference Range Interpretation Comments Lymphocytes # (Auto) (test code = 32040-5) 3.2 1.0-3.2 [facility] HospitalMonocytes # (Auto)2017-10-02 00:53:00* Test Item Value Reference Range Interpretation Comments Monocytes # (Auto) (test code = 742-7) 0.5 0.2-0.8 [facility] HospitalEosinophils # (Auto)2017-10-02 00:53:00* Test Item Value Reference Range Interpretation Comments Eosinophils # (Auto) (test code = 711-2) 0.4 0.0-0.4 [facility] HospitalBasophils # (Auto)2017-10-02 00:53:00* Test Item Value Reference Range Interpretation Comments Basophils # (Auto) (test code = 704-7) 0.0 0.0-0.1 [facility] HospitalAbsolute Immature Granulocyte (auto 2017-10-02 00:53:00* Test Item Value Reference Range Interpretation Comments Absolute Immature Granulocyte (auto (jesus t code = Absolute Immature Granulocyte (auto) 0.02 0-0.1 [facility] HospitalWhite Blood Fkurk9778-61-20 00:53:00* Test Item Value Reference Range Interpretation Comments White Blood Count (test code = 6690-2) 8.39 4.8-10.8 [facility] HospitalRed Blood Iimpv6999-89-58 00:53:00* Test Item Value Reference Range Interpretation Comments Red Blood Count (test code = 789-8) 4.23 3.6-5.1 [facility] HospitalHemoglobin2018-02-17 00:53:00* Test Item Value Reference Range Interpretation Comments Hemoglobin (test code = 21599-4) 9.8 12.0-16.0 L [facility] HospitalHematocrit2018-02-17 00:53:00* Test Item Value Reference Range Interpretation Comments Hematocrit (test code = 4544-3) 31.9 34.2-44.1 L [facility] HospitalMean Corpuscular Ziahss0782-02-90 00:53:00* Test Item Value Reference Range Interpretation Comments Mean Corpuscular Volume (test code = 787-2) 75.4 81-99 L [facility] HospitalMean Corpuscular Otofxxeoaf7010-89-02 00:53:00* Test Item Value Reference Range Interpretation Comments Mean Corpuscular Hemoglobin (test code = 785-6) 23.2 28-32 L [facility] HospitalMean Corpuscular Hemoglobin Concent 2017-10-02 00:53:00* Test Item Value Reference Range Interpretation Comments Mean Corpuscular Hemoglobin Concent (test code = 786-4) 30.7 31-35 L [facility] HospitalRed Cell Distribution Olrta3910-51-44 00:53:00* Test Item Value Reference Range Interpretation Comments Red Cell Distribution Width (test code = 09870-8) 17.0 11.7 -14.4 H [facility] HospitalPlatelet Earbx8368-07-47 00:53:00* Test Item Value Reference Range Interpretation Comments Platelet Count (test code = 777-3) 246 140-360 [facility] HospitalNeutrophils (%) (Auto)2017-10-02 00:53:00 * Test Item Value Reference Range Interpretation Comments Neutrophils (%) (Auto) (test code = 24681-3) 51.3 38.7-80.0 [facility] HospitalLymphocytes (%) (Auto)2017-10-02 00:53:00 * Test Item Value Reference Range Interpretation Comments Lymphocytes (%) (Auto) (test code = 736-9) 37.8 18.0-39.1 [facility] HospitalMonocytes (%) (Auto)2017-10-02 00:53:00* Test Item Value Reference Range Interpretation Comments Monocytes (%) (Auto) (test code = 5905-5) 6.1 4.4-11.3 [facility] HospitalEosinophils (%) (Auto)2017-10-02 00:53:00 * Test Item Value Reference Range Interpretation Comments Eosinophils (%) (Auto) (test code = 713-8) 4.4 0.0-6.0 [facility] HospitalBasophils (%) (Auto)2017-10-02 00:53:00* Test Item Value Reference Range Interpretation Comments Basophils (%) (Auto) (test code = 706-2) 0.2 0.0-1.0 [facility] HospitalIM GRANULOCYTES %2017-10-02 00:53:00* Test Item Value Reference Range Interpretation Comments IM GRANULOCYTES % (test code = IM GRANULOCYTES %) 0.2 0.0- 1.0 [facility] HospitalNeutrophils # (Auto)2017-10-02 00:53:00* Test Item Value Reference Range Interpretation Comments Neutrophils # (Auto) (test code = 751-8) 4.3 2.1-6.9 [facility] HospitalLymphocytes # (Auto)2017-10-02 00:53:00* Test Item Value Reference Range Interpretation Comments Lymphocytes # (Auto) (test code = 86894-0) 3.2 1.0-3.2 [facility] HospitalMonocytes # (Auto)2017-10-02 00:53:00* Test Item Value Reference Range Interpretation Comments Monocytes # (Auto) (test code = 742-7) 0.5 0.2-0.8 [facility] HospitalEosinophils # (Auto)2017-10-02 00:53:00* Test Item Value Reference Range Interpretation Comments Eosinophils # (Auto) (test code = 711-2) 0.4 0.0-0.4 [facility] HospitalBasophils # (Auto)2017-10-02 00:53:00* Test Item Value Reference Range Interpretation Comments Basophils # (Auto) (test code = 704-7) 0.0 0.0-0.1 [facility] HospitalAbsolute Immature Granulocyte (auto 2017-10-02 00:53:00* Test Item Value Reference Range Interpretation Comments Absolute Immature Granulocyte (auto (jesus t code = Absolute Immature Granulocyte (auto) 0.02 0-0.1 [facility] HospitalCreatine Kinase RX0208-39-49 06:56:00* Test Item Value Reference Range Interpretation Comments Creatine Kinase MB (test code = 27248-8) 0.80 0.00-5.00 [facility] HospitalTrHector [place] [address]37-66-15 06:56:00* Test Item Value Reference Range Interpretation Comments Troponin I (test code = KER3216) 0.014 0-0.300 [facility] HospitalCreatine Kinase ES2496-46-57 06:56:00* Test Item Value Reference Range Interpretation Comments Creatine Kinase MB (test code = 76658-6) 0.80 0.00-5.00 [place] 21545017-12-12 06:56:00* Test Item Value Reference Range Interpretation Comments Troponin I (test code = FTN6552) 0.014 0-0.300 [facility] HospitalCreatine Jxdbqg5024-98-32 06:53:00* Test Item Value Reference Range Interpretation Comments Creatine Kinase (test code = 2157-6) 38 29-168 [facility] HospitalCreatine Oayhvm9088-91-47 06:53:00* Test Item Value Reference Range Interpretation Comments Creatine Kinase (test code = 2157-6) 38 29-168 [facility] HospitalProthrombin Bymu3883-19-77 16:16:00* Test Item Value Reference Range Interpretation Comments Prothrombin Time (test code = 5902-2) 12.9 11.9-14.5 [facility] HospitalProthromb Time International Ratio 2017-07-26 16:16:00* Test Item Value Reference Range Interpretation Comments Prothromb Time International Ratio (test code = 6301-6) 0.93 Oral Anticoagulant Therapy INR Values:1. Low Intensity Therapy 1.5 - 2.02 . Moderate Intensity Therapy 2.0 - 3.03. High Intensity Therapy(1) 2.5 - 3. 54. High Intensity Therapy(2) 3.0 - 4.05. Panic Value INR > 5.0 [facility] HospitalActivated Partial Thromboplast Time 2017-07-26 16:16:00* Test Item Value Reference Range Interpretation Comments Activated Partial Thromboplast Time (test code = 42047-6) 24.4 23.8-35.5 [facility] HospitalProthrombin Qnlv7177-82-86 16:16:00* Test Item Value Reference Range Interpretation Comments Prothrombin Time (test code = 5902-2) 12.9 11.9-14.5 [facility] HospitalProthromb Time International Ratio 2017-07-26 16:16:00* Test Item Value Reference Range Interpretation Comments Prothromb Time International Ratio (test code = 6301-6) 0.93 Oral Anticoagulant Therapy INR Values:1. Low Intensity Therapy 1.5 - 2.02 . Moderate Intensity Therapy 2.0 - 3.03. High Intensity Therapy(1) 2.5 - 3. 54. High Intensity Therapy(2) 3.0 - 4.05. Panic Value INR > 5.0 [facility] HospitalActivated Partial Thromboplast Time 2017-07-26 16:16:00* Test Item Value Reference Range Interpretation Comments Activated Partial Thromboplast Time (test code = 33999-4) 24.4 23.8-35.5 [facility] HospitalTriglycerides Kfbtb5359-97-69 06:54:00* Test Item Value Reference Range Interpretation Comments Triglycerides Level (test code = 2571-8) 161 0-149 H [facility] HospitalCholesterol Kvkdp2528-20-12 06:54:00* Test Item Value Reference Range Interpretation Comments Cholesterol Level (test code = 2093-3) 161 0-199 Less than 200 mg/dL Low Tigt173 - 239 mg/dL Borderline Xtua127 m g/dl and greater High Risk [facility] HospitalLDL Xiiejklykgp3659-81-48 06:54:00* Test Item Value Reference Range Interpretation Comments LDL Cholesterol (test code = 79414-1) 81 60-130 [facility] HospitalHDL Roxovnlvpev9796-17-59 06:54:00* Test Item Value Reference Range Interpretation Comments HDL Cholesterol (test code = 2085-9) 48 40-60 [facility] HospitalCholesterol/HDL Gldgk2777-41-35 06:54:00 * Test Item Value Reference Range Interpretation Comments Cholesterol/HDL Ratio (test code = 9830-1) 3.4 3.0-3.6 [facility] HospitalUrine Opiates Kiyxgj6471-16-96 04:55:00* Test Item Value Reference Range Interpretation Comments Urine Opiates Screen (test code = 87999-8) NEGATIVE NEGATIVE [facility] HospitalUrine Barbiturates Dttjxn6041-33-54 04:55:00* Test Item Value Reference Range Interpretation Comments Urine Barbiturates Screen (test code = 859516397) NEGATIVE NEGA TIVE [facility] HospitalUrine Phencyclidine Cfnlqs3443-30-17 04:55:00* Test Item Value Reference Range Interpretation Comments Urine Phencyclidine Screen (test code = 95936-8) NEGATIVE NEGAT JESS [facility] HospitalUrine Amphetamines Aizeuk9030-02-78 04:55:00* Test Item Value Reference Range Interpretation Comments Urine Amphetamines Screen (test code = 20223-4) NEGATIVE NEGATI VE [facility] HospitalUrine Benzodiazepines Ctvgwv1836-47-14 04:55:00* Test Item Value Reference Range Interpretation Comments Urine Benzodiazepines Screen (test code = 93253-2) NEGATIVE NEG ATIVE [facility] HospitalUrine Cocaine Sdrwch8008-70-60 04:55:00* Test Item Value Reference Range Interpretation Comments Urine Cocaine Screen (test code = Urine Cocaine Screen) NEGATIVE NEGATIVE [facility] HospitalUrine Cannabinoids Gnmcmo7278-29-29 04:55:00* Test Item Value Reference Range Interpretation Comments Urine Cannabinoids Screen (test code = 09377-1) NEGATIVE NEGATI VE THESE RESULTS ARE FOR MEDICAL TREATMENT ONLYTHIS REPORT CONTAINS UNCONFIR MED SCREENING RESULTS*POSITIVE RESULTS WILL BE CONFIRMED BY REFERENCE LAB UPON R EQUEST CUT-OFFDRUG CLASS CONCENTRATION ng/mLAmphetamines 1000Methamphetamines 1000Cocaine 300Opiate 300Phencyc lidine 25Cannabinoid 50Barbiturates 300Benzodiazepine 300Methadone 300[facility] HospitalThyroid Stimulating Hormone (TSH)2017-07-01 03:44:00* Test Item Value Reference Range Interpretation Comments Thyroid Stimulating Hormone (TSH) (test code = 37343-9) 3.278 0.350-4.940 [facility] HospitalMagnesium Mqzys4804-38-93 03:29:00* Test Item Value Reference Range Interpretation Comments Magnesium Level (test code = 49992-3) 2.3 1.3-2.1 H [facility] HospitalDifferential Total Cells Counted 2017-06-07 12:11:00* Test Item Value Reference Range Interpretation Comments Differential Total Cells Counted (test code = Differen tial Total Cells Counted) 100 [facility] HospitalNeutrophils % (Manual)2017-06-07 12:11:00 * Test Item Value Reference Range Interpretation Comments Neutrophils % (Manual) (test code = 27295-7) 31 40-74 L [facility] HospitalLymphocytes % (Manual)2017-06-07 12:11:00 * Test Item Value Reference Range Interpretation Comments Lymphocytes % (Manual) (test code = 737-7) 50 19-48 H [facility] HospitalMonocytes % (Manual)2017-06-07 12:11:00* Test Item Value Reference Range Interpretation Comments Monocytes % (Manual) (test code = 744-3) 9 3.4-9.0 [facility] HospitalEosinophils % (Manual)2017-06-07 12:11:00 * Test Item Value Reference Range Interpretation Comments Eosinophils % (Manual) (test code = 714-6) 4 0-7 [facility] HospitalMetamyelocytes %2017-06-07 12:11:00* Test Item Value Reference Range Interpretation Comments Metamyelocytes % (test code = 740-1) 1 0-0 H [facility] HospitalReactive Tvnkliidoah0325-08-96 12:11:00* Test Item Value Reference Range Interpretation Comments Reactive Lymphocytes (test code = 53865-7) 5 [facility] HospitalPlatelet Khuevnpl5834-47-51 12:11:00* Test Item Value Reference Range Interpretation Comments Platelet Estimate (test code = 82695-8) ADEQUATE [facility] HospitalPlatelet Morphology Hmwvxee2582-33-58 12:11:00* Test Item Value Reference Range Interpretation Comments Platelet Morphology Comment (test code = 16056-3) NORMAL [facility] HospitalHypochromasia2017-10-23 12:11:00* Test Item Value Reference Range Interpretation Comments Hypochromasia (test code = 728-6) SLIGHT [facility] HospitalAnisocytosis2017-10-23 12:11:00* Test Item Value Reference Range Interpretation Comments Anisocytosis (test code = 702-1) SLIGHT [facility] HospitalRed Cell Morphology Mddhvpt9666-44-58 12:11:00* Test Item Value Reference Range Interpretation Comments Red Cell Morphology Comment (test code = 6742-1) ABNORMAL [facility] HospitalCT [facility]PELV[facility] [address] [place] [address] Patient Name: SASHA POPE MR #: [id number] : 1965 Age/Sex: 52/F Req #: [id number] Adm Physician: Ordered by: ANN CHADWICK MD Report #: [id number] Location: ER Room/Bed: Procedure: [id number] CT/CT ABDOMEN/PELVIS W Exam Date: 10/02/17 Exam [...] TO: ANN CHADWICK MD CHEST 2 VIEWS [place] [address] Patient Name: SASHA POPE MR #: [id number] : 1965 Age/Sex: 52/F Req #: [id number] Adm Physician: Ordered by: DYLAN PRUITT MD Report #: [id number] Location: ER Room/Bed: Procedure: [id number] DX/CHEST 2 VIEWS Exam Date: 07/26/17 Exam Time: 1546 REPORT STATUS: Signed PROCEDURE: CHEST 2 VIEWS TECHNIQUE: PA and lateral chest INDICATION: Fall COMPARISON: [facility], DX, CHEST 2 VIEWS, 07/01/2017, 3:00. FINDINGS: [...] on 07/26/17 162 COPY TO: DYLAN PRUITT CT CERVICAL SPINE WO [address] [address] Patient Name: SASHA POPE MR #: [id number] : 1965 Age/Sex: 52/F Req #: [id number] Adm Physician: Ordered by: DYLAN PRUITT MD Report #: [id number] Location: ER Room/Bed: Procedure: [id number] CT/CT CERVICAL SPINE JENNIE beyer Date: 07/26/17 Exam Time: 1530 REPORT STATUS: [...] TO: DYLAN PRUITT MD CT BRAIN WO [place] [address] Patient Name: SASHA POPE MR #: [id number] : 1965 Age/Sex: 52/F Req #: [id number] Adm Physician: Ordered by: DYLAN PRUITT MD Report #: [id number] Location: ER Room/Bed: Procedure: [id number] CT/CT BRAIN WO Exam Date: 09/26/16 Exam [...] : DYLAN PRUITT MD CHEST 2 VIEWS [place] [address] Patient Name: SASHA POPE MR #: [id number] : 1965 Age/Sex: 52/F Req #: [id number] Adm Physician: Ordered by: BULMARO THEODORE MD Report #: [id number] Location: ER Room/Bed: Procedure: [id number] DX/CHEST 2 VIEWS Exam Date: 08/31/16 Exam Time: 0300 REPORT STATUS: Signed CHEST 2 VIEWS, Technique: CHEST 2 VIEWS Comparison: 06/07/2017 Cl inical history: Chest pain DISCUSSION: Stable appearance of the heart, mediastinum, lungs, pleural spaces, and bones. Stable left chest wall electron ic device. IMPRESSION: No acute abnormality. Signed by: Dr Isaac edmondson MD on 07/01/2017 3:47 AM Dictated By: ISAAC Leach kika Signed By: ISAAC MCFADDEN MD on 07/01/17346 Transcribed By: GARO on 07/01/17346 COPY TO: BULMAOR THEODORE MD CHEST SINGLE (PORTABLE) [place] [address] Patient Name: SASHA POPE MR #: [id number] : 1965 Age/Sex: 52/F Req #: [id number] Adm Physician: Ordered by: HELEN GRIFFIN MD Report #: [id number] Location: ER Room/Bed: Procedure: [id number] DX/CHEST SINGLE (PORTABLE) Exa m Date: 06/07/17 [...]
[2020-04-16] MEDS ORDERED: METHYLPREDNISOLONE SOD SUCC 125 MG/2ML VIAL IV ONE (16:30)
[2020-04-16] MEDS ORDERED: PROCHLORPERAZINE MALEATE TAB 10 MG TAB PO STA (16:32)
[2020-04-16] MEDS ORDERED: SODIUM CHLORIDE 0.9% 1000ML 1,000 ML ONE (16:41)
--- NOTE | 2020-04-16 17:12 | Diagnostic Imaging Report ---
Exam: Head CT without contrast History: Severe headache Comparison studies: Head CT 07/26/2017. Technique: Axial images were obtained from the skull base to the vertex. Coronal and sagittal images reconstructed from the axial data. Dose modulation, iterative reconstruction, and/or weight based adjustment of the mA/kV was utilized to reduce the radiation dose to as low as reasonably achievable. Radiation dose: Total DLP: 969.14 mGy*cm. Estimated effective dose: DLP x 0.015 Intravenous contrast: None Findings: Scalp: No abnormalities. Bones: No fractures, blastic or lytic lesions. Brain sulci: Appropriate for age. Ventricles: Normal in size and configuration. No hydrocephalus. Extra-axial spaces: No masses, no fluid collection. Parenchyma: No mass, acute hemorrhage or acute or chronic cortical insults. Incidental physiologic calcifications in the globi pallidi. Sellar/suprasellar region: No abnormalities. Craniocervical junction: Patent foramen magnum. 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 Middle ear cavities and mastoids: Clear. Included paranasal sinuses: Clear. Additional findings: Atherosclerotic calcifications in the carotid siphons. IMPRESSION: 1. No acute abnormalities. 2. No changes from the prior head CT of 07/26/2017. Signed by: Dr. Jeff Saldivar M.D. on 04/16/2020 5:09 PM
== END 2020-04-16 19:21 | disposition home or self-care (01) ==
LOC: FSED 16:10
DX: R51 Headache (principal); E03.9 Hypothyroidism, unspecified; E78.5 Hyperlipidemia, unspecified; Z87.442 Personal history of urinary calculi; Z85.038 Personal history of other malignant neoplasm of large intestine; Z85.528 Personal history of other malignant neoplasm of kidney
CPT/HCPCS: 70450; 99284; J1200; J1885; J2765; J2930; J7030

== ENCOUNTER 2020-06-29 20:59 | Emergency (ER) | payer MEDICARE ==
[~2020-06-29] VITALS: Ht 147.3 cm; Wt 63.5 kg
[2020-06-29] MEDS ORDERED: KETOROLAC TROMETHAMINE 60 MG/2 ML VIAL IM ONE (21:45)
--- NOTE | 2020-06-29 21:46 | Emergency Department Note ---
History of Present Illnes History of Present Illness Chief Complaint: rgt upper arm pain History of Present Illness This is a 55 year old female. was doing well prior to this. 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 Onset (how long ago): week(s) (1) Location: see above Quality: sharp Radiation: Reports non-radiation Severity: severe Onset quality: gradual Duration (how long): week(s) (1) Timing of current episode: constant Progression: worsening Chronicity: new Context: Denies recent illness, Denies recent surgery, Denies recent immobilization, Denies recent travel, Denies trauma/injury, Denies new medications, Denies hx of DVT/PE, Denies non-compliance w/ medications Relieving factors: rest Exacerbating factors: movement Associated symptoms: Reports denies other symptoms Treatments prior to arrival: none Past Medical/Family History Physician Review I have reviewed the patient's past medical and family history. Any updates have been documented here. Past Medical History Recent Fever: No Clinical Suspicion of Infectio: No New/Unexplained Change in Ment: No Past Medical History: Cancer Other Medical History: thyroid, kidney and colon ca Past Surgical History: Cholecysctectomy, Appendectomy, Hysterectomy Other Surgery: thyroidectomy, color 6 inch removal, partial kidney removal Social History Smoking Cessation: Never Smoker Counseling Performed: No Any Illegal Drug Use: No TB Exposure/Symptoms: No Physically hurt or threatened: No Family History Family history of heart diseas: No Other Last Tetanus: UTD Any Pre-Existing Lines (PICC,: No Is patient up to date on immun: No Review of Systems Review of Systems Constitutional: Reports no symptoms EENTM: Reports no symptoms Cardiovascular: Reports no symptoms Respiratory: Reports no symptoms Gastrointestinal: Reports no symptoms Genitourinary: Reports no symptoms Musculoskeletal: Reports as per HPI Integumentary: Reports no symptoms Neurological: Reports no symptoms Psychological: Reports no symptoms Endocrine: Reports no symptoms Hematological/Lymphatic: Reports no symptoms Review of other systems: All other systems negative Physical Exam Related Data Allergies: Coded Allergies: morphine (Verified Allergy, Mild, HIVES, 12/02/18) Vital signs reviewed: Yes Physical Exam CONSTITUTIONAL Constitutional: Present well-developed, Present well-nourished HENT HENT: Present normocephalic, Present atraumatic, Present oropharynx clear/moist, Present nose normal HENT L/R: Present left ext ear normal, Present right ext ear normal EYES Eyes: Reports PERRL, Reports conjunctivae normal NECK Neck: Present ROM normal, Present supple PULMONARY Pulmonary: Present effort normal, Present breath sounds normal CARDIOVASCULAR Cardiovascular: Present regular rhythm, Present heart sounds normal, Present capillary refill normal, Present normal rate GASTROINTESTINAL Abdominal: Present soft, Present nontender, Present bowel sounds normal GENITOURINARY Genitourinary: Present exam deferred SKIN Skin: Present warm, Present dry MUSCULOSKELETAL Musculoskeletal: Present ROM normal, Present tenderness (rgt upper arm) NEUROLOGICAL Neurological: Present alert, Present oriented x 3, Present no gross motor or sensory deficits PSYCHOLOGICAL Psychological: Present mood/affect normal, Present judgement normal Results Imaging Imaging results reviewed: Yes Impressions [place] [address] Patient Name: SASHA POPE MR #: [id number] : 1965 Age/Sex: 55/F Req #: [id number] Adm Physician: Ordered by: FORTUNATO BAEZA Report #: [id number] Location: [facility] Room/Bed: Procedure: [id number] HOPD/HUMERUS 2VIEW RT -HOPD Exam Date: 06/29/20 Exam Time: 2147 REPORT STATUS: Signed X-ray right humerus 2 views HISTORY: Pain. COMPARISON: None available. FINDINGS: Bones: No acute displaced fracture. Osseous alignment is within normal limits. Joints: The joint spaces are well-maintained. Soft tissues: The soft tissues appear unremarkable. IMPRESSION: No acute radiographic abnormality. Signed by: Gurwinder Doty DO on 06/29/2020 10:05 PM Dictated By: GURWINDER DOTY DO 04 Transcribed By: GARO on 06/29/202204 COPY TO: FORTUNATO BAEZA~ Assessment & Plan Medical Decision Making MDM bone mets, fracture, strain Assessment & Plan Final Impression: (1) Muscle strain (2) Arm pain Depart Disposition: HOME, SELF-intermediate Meds Active Scripts Cyclobenzaprine Hcl (FLEXERIL) 5 Mg Tablet, 10 MG PO Q8H PRN for MUSCLE SPASMS, #30 TAB take after prednisone to control pain if need be Prov:FORTUNATO BAEZA 06/29/20 Prednisone (PREDNISONE) 20 Mg Tab, 60 MG PO DAILY PRN for MODERATE PAIN (4-6), #18 TAB take all 3 20 mg pills at once Prov:FORTUNATO BAEZA 06/29/20 Azithromycin (Z-FELIPA) 250 Mg Tablet, 250 MG PO UD for infection for 5 Days, #1 UDPKT 0 Refills Z-Pack Prov:CLAYTON ORR MD 01/14/20 Naproxen (NAPROXEN) 250 Mg Tablet, 500 MG PO BID for muscle pain and inflammation, #20 TAB 0 Refills Prov:CLAYTON ORR MD 01/14/20 Methocarbamol (ROBAXIN-750) 750 Mg Tablet, 1-2 TAB PO Q8H for muscle pain, #20 TAB 0 Refills Do NOT take and drive or operate machinery Prov:CLAYTON ORR MD 01/14/20 Omeprazole (OMEPRAZOLE) 40 Mg Capsule.dr, 1 TAB PO DAILY for 14 Days Prov:CARLEEN ALBERT MD 10/20/18 Ketorolac Tromethamine (TORADOL) 10 Mg Tablet, 10 MG PO Q8H for pain for 7 Days, #21 Prov:CARLEEN ALBERT MD 10/20/18 Reported Medications D-Methorphan Hb/P-Epd Hcl/Bpm (BROMFED DM COUGH SYRUP) 118 Ml Syrup, 10 ML PO Q6H, #200 ML 05/22/19 Albuterol Sulf* (PROAIR HFA INHALER*) 8.5 Gm Inh, 2 INH INH Q4HR PRN for SHORTNESS OF BREATH, #1 05/22/19 Methylprednisolone (MEDROL) 4 Mg Tablet, 4 MG PO UD for 6 Days 05/22/19 Acetaminophen With Codeine (TYLENOL WITH CODEINE #3 TABLET) 1 Each Tablet, 300 MG PO TID PRN for PRN, TAB 06/02/18 Gabapentin (GABAPENTIN) 300 Mg Capsule, 300 MG PO TID, #60 CAP 06/02/18 Medications in the ED Ketorolac Tromethamine 60 mg ONCE ONCE IM ; Start 06/29/20 at 21:45; Stop 06/29/20 at 21:46 FORTUNATO BAEZA Jun 29, 2020 21:46
--- OUTSIDE RECORDS SUMMARY | 2020-06-29 21:46 | XMS REPORT | Clinical Summary ---
Author Author [facility] Address Unknown Phone Unavailable Care Team Providers Care Washer Off Name Role Phone VeraGrant cannon PCP Allergies Comments Active Allergy Reactions Severity [...] mouth 2 (two) times daily. 07/11/2019 Discontinued (Error) calcium carbonate Take by 0 (CALCIUM 500 ORAL) mouth. Active Problems Problem Noted Date Thyroid cancer 07/11/2019 Encounters Care Team Description Date Type Specialty Fareed Vang MD Malignant neoplasm of thyroid gland (HCC ) (Primary Dx) 07/17/2019 Orders Only Lab Marie Bhakta MD Broussard, Tameka Michelle, MD 07/11/2019 Anesthesia Event Fareed Vang MD THYROIDECTOMY,TOTAL 07/11/2019 Surgery Fareed Vang MD 07/11/2019 [facility] General Internal Fl dicine - Encounter 07/12/2019 Kelvin Wells MD 07/05/2019 Hospital Pre-Admission Testi ng Encounter after 06/29/2019 Social History Date Tobacco Use Types Packs/Day Years Used Never Smoker Smokeless Tobacco: Never Used Drinks/Week oz/Week Comments Alcohol Use No Alcohol Habits Answer Date Recorded How often do you have a drink containing alcohol? Never 07/05/2019 How many drinks containing alcohol do you have on No t asked a typical day when you are drinking? How often do you have six or more drinks on one Not asked occasion? Sex Assigned at Date Recorded Not on file Last Filed Vital Signs Reading Time Taken Comments Vital Sign 140/67 07/12/2019 8:48 AM PROJECT PROGRAM MANAGER Blood Pressure 52 07/12/2019 8:48 AM PROJECT PROGRAM MANAGER Pulse 36.1 C (97 F) 07/12/2019 8:48 AM PROJECT PROGRAM MANAGER Temperature 18 07/12/2019 8:48 AM PROJECT PROGRAM MANAGER Respiratory Rate 98% 07/12/2019 8:48 AM PROJECT PROGRAM MANAGER Oxygen Saturation - - Inhaled Oxygen Concentration 63.2 kg (139 lb 4.8 oz) 07/11/2019 6:20 AM PROJECT PROGRAM MANAGER Weight 147.3 cm (4' 10") 07/11/2019 6:20 AM PROJECT PROGRAM MANAGER Height 29.11 07/11/2019 6:20 AM PROJECT PROGRAM MANAGER Body Mass Index Plan of Treatment Health Maintenance Due Date Last Done Comments BREAST CANCER SCREENING 1965 COLON CANCER SCREENING 1965 COLONOSCOPY CERVICAL CANCER SCREENING 01/12/1985 PAP ONLY (Age 21-65) LIPID PANEL 01/12/2009 INFLUENZA VACCINE (#1) 2020 Procedures Comments Procedure Name Priority Date/Time Associated Diag nosis CALCIUM Routine 07/17/2019 Malignant neopl asm of 11:28 AM PROJECT PROGRAM MANAGER thyroid gland (HCC) CALCIUM, IONIZED Routine 07/12/2019 8:40 AM PROJECT PROGRAM MANAGER CALCIUM, IONIZED Routine 07/11/2019 9:47 PM PROJECT PROGRAM MANAGER PTH, INTACT ALISIA 07/11/2019 11:12 AM PROJECT PROGRAM MANAGER CALCIUM, IONIZED ALISIA 07/11/2019 11:12 AM PROJECT PROGRAM MANAGER TISSUE EXAM AP Routine 07/11/2019 9:47 AM PROJECT PROGRAM MANAGER PROCEDURE W/ NIMS 07/11/2019 Malignant neoplasm of 7:31 AM PROJECT PROGRAM MANAGER thyroid gland (HCC) Case Notes 2 HRS PER FAX THYROIDECTOMY,TOTAL 07/11/2019 Malignant neoplas m of 7:31 AM PROJECT PROGRAM MANAGER thyroid gland (HCC) Case Notes 2 HRS PER FAX PLATELET COUNT Routine 07/05/2019 4:34 PM PROJECT PROGRAM MANAGER PROTHROMBIN TIME/INR Routine 07/05/2019 4:34 PM PROJECT PROGRAM MANAGER HEMOGLOBIN Routine 07/05/2019 4:34 PM PROJECT PROGRAM MANAGER after 06/29/2019 Results * Calcium (07/17/2019 11:28 AM PROJECT PROGRAM MANAGER) Calcium 9.9 8.4 - 10.2 mg/dL [facility] Specimen Blood Performing Organization Address [facility] Ph one Number [address] [facility] * Calcium, Ionized (07/12/2019 8:40 AM PROJECT PROGRAM MANAGER) Only the most recent of 3 results within the time period is included. Calcium, Ion 1.19 1.12 - 1.27 mmol/L [facility] pH, Blood 7.37 [facility] Specimen Blood - Entire right upper arm (body structure) Performing Organization Address [facility] Ph one Number [address] [facility] * PTH, intact (07/11/2019 11:12 AM PROJECT PROGRAM MANAGER) PTH 64.0 8.5 - 72.5 pg/mL [facility] Specimen Blood Performing Organization Address [facility] one Number [address] [facility] * Tissue Exam (07/11/2019 9:47 AM PROJECT PROGRAM MANAGER) Case Report Surgical Pathology Report [facility] Case: [id number] [facility] Authorizing Provider: Fareed Vang MD Collected: 07/11/2019 0947 Ordering Location: [facility] PERIOPERATIVE Received: 07/11/2019 1249 SERVICES Pathologist: James Davalos MD Specimens: A) - Thyroid, Right B) - Thyroid, Left DIAGNOSIS PART A RIGHT LOBE OF THYROID, [facility] Electronically HEMITHYROIDECTOMY (6.0 GRAMS): [facility] signed by Anoop, PAPILLARY THYROID CARCINOMA, [facility] James Garcia MD on CLASSIC MORPHOLOGY, 1.0 CM. 07/17/2019 at 3:06 THE NEOPLASM IS PRESENT IN THE PM RIGHT LOWER LOBE. LYMPHOVASCULAR INVASION IS NOT IDENTIFIED. EXTRATHYROIDAL EXTENSION IS NOT IDENTIFIED. SURGICAL MARGINS ARE NEGATIVE FOR TUMOR. AJCC CLASSIFICATION (8TH EDITION) [id number]. SEE SYNOPTIC REPORT. PART B LEFT LOBE OF THYROID, HEMITHYROIDECTOMY (6.0 GRAMS): THYROID WITHOUT SIGNIFICANT HISTOPATHOLOGIC ALTERATION. NEGATIVE FOR MALIGNANCY. Signing Pathologist Direct Phone Line: [phone] SYNOPTIC REPORT THYROID GLAND (Thyroid - All [facility] Specimens) [facility] 8th Edition - Protocol posted: [facility] 10/12/2018 : SPECIMEN Procedure: Total thyroidectomy TUMOR Tumor Focality: Unifocal : : Tumor Site: Right lobe Histologic Type: Papillary carcinoma, classic [...] Regional Lymph Nodes (pN): pNX CPT Code(s) 57803R7 [facility] ANA[facility]ell [facility] Malignant neoplasm of thyroid [facility] ANA[facility] HISTORY gland [facility] SPECIMEN SOURCE A. RIGHT LOBE OF THYROID; B. [facility] ST Dena NEVESS LEFT LOBE OF THYROID. [facility] GROSS The case has two parts. ERI WEISS'Martell DESCRIPTION A. Received in formalin [facility] labeled with the patient's MEDICAL CENTER name, accession number and "right thyroid" is [...] cut surface is red and finely granular. Systems Analyst Developer sections to include the entire nodule are submitted as follows; Section code: A6-L8-ctjiot nodule, lower pole A3-uninvolved thyroid, upper pole [...] surface. No discrete lesions are grossly appreciated. Systems Analyst Developer sections to include the entire nodule are submitted as follows; Section code: B1-upper pole B2-B3-mid pole B4-B5-lower pole PA/ew MICROSCOPIC Performed. [facility] [place] Gross [facility] assessment was [facility] performed at Pathology, [address] [place] [id number], Technical [facility] component was [facility] performed at Pathology, [address] [place] [address], Professional [facility] component was [facility] performed at Pathology, [address] [place] [id number], Specimen Tissue - Thyroid, Right Tissue specimen (specimen) - Thyroid, Left Performing Organization Address City/State[facility] Ph one Number [facility] [facility] [place] * Prothrombin time/INR (07/05/2019 4:34 PM PROJECT PROGRAM MANAGER) Protime 13.1 11.9 - 14.2 seconds [facility] INR 1.0 <=5.9 [facility] Specimen Blood Narrative Performed At RECOMMENDED COUMADIN/WARFARIN INR THERAPY RANGES [facility] STANDARD DOSE: 2.0 - 3.0 Includes: PROPHYLAXIS for venous thrombosis, [facility] systemic embolization; TREATMENT for ve nous thrombosis and/or pulmonary embolus. HIGH RISK: Target INR is 2.5-3.5 for pa tients with mechanical heart valves. Performing Organization Address City/[facility] Ph one Number [address] [facility] [place] * Platelet count (07/05/2019 4:34 PM PROJECT PROGRAM MANAGER) Platelets 204 150 - 450 K/CU MM [facility] Specimen Blood Performing Organization Address City/[facility] Ph one Number [address] [facility] [place] * Hemoglobin (07/05/2019 4:34 PM PROJECT PROGRAM MANAGER) Hemoglobin 13.2 11.2 - 15.7 GM/DL [facility] Specimen Blood Performing Organization Address City/[facility] Ph one Number [address] [facility]ENTER after 06/29/2019 Insurance Type Payer Benefit Subscriber ID Effective Phone Address Plan / Dates Group HMO/POS [employer] - MGD CARE C[employer]NA [id number] 2018-P HMO/POS/OP resent EN ACCESS [id number] Advance Directives For more information, please contact: [phone] Date Inactivated Comments Code Status Date Activated 07/12/2019 12:45 PM Full Code 07/11/2019 1:38 PM This code status was determined by: Patient
--- OUTSIDE RECORDS SUMMARY | 2020-06-29 21:47 | XMS REPORT | Continuity of Care Document ---
Author Author [facility] t Organization [facility] t Address [address] [place] [address] Phone Unavailable Care Team Providers Care Operations Administrative Assistant Name Role Phone MD Kadeem HERNANDEZ MD PCP MARIA ISABEL ARIAS Attphys Unavailable DUCHAMP, A CLAYTON Attphys Unavailable Neena THEODORE LAIMABLE Attphys Unavailable Emily Vang MD Attphys EIMLY VANG Attphys Unavailable Livia LUNDBERG, Amy Salazra Attphys [phone] Cheryl LUNDBERG, Pat Mcfadden Attphys [phone] Russell LUNDBERG, Darien Warren Attphys Unavailable Carmine DUNLAP Attphys Unavailable Kadeem HERNANDEZ Attphys Unavailable DYLAN ARTIS Attphys Unavailable Dena CHADWICK Attphys Unavailable Martell EVANS Attphys Unavailable Carmine ALBERT Attphys Unavailable Tylor PERSAUD Attphys Unavailable Carmen PRUITT Attphys Unavailable Elena GRIFFIN Attphys Unavailable EMILY VANG Admphys Unavailable Kadeem HERNANDEZ Admphys Unavailable Payers Payer Name Policy Type Policy Number Effective Date Expiration Date S clara [employer] Medicare Replacement [id number] 2020 00:00:0 0 [facility] Cigna o [id number] 2019 [facility]/POS/OPEN [id number]/[id number] -PresentHMO/POS [id number] 2018 00:00:00 [id number] 2018 00:00:00 [facility] Problems Condition Name Condition Details Condition Category Status Onset Date Resolution Date Last Treatment Date Treating Clinician Comments Source Thyroid cancer Thyroid cancer Disease Active 2019-07-11 00:00:00 [facility] TIA (transient ischemic attack) TIA (transient ischemic attack) Pro blem Active 2015-04-23 00:00:00 [facility] Chest pain Chest pain Problem Active C [facility] Allergies, Adverse Reactions, Alerts Allergy Name Allergy Type Status Severity Reaction(s) Onset Date Inacti ve Date Treating Clinician Comments Source Morphine Propensity to adverse reactions [facility] morphine DA Active ND 2019-02-08 [facility] Morphine Allergy to substance Active Mild HIVES 2018-12-02 00:00:00 [facility] morphine DA Active ND 2016-07-07 00:00:00 [facility] Social History Social Habit Start Date Stop Date Quantity Comments Source History SDOH Alcohol Std Drinks [facility] History SDOH Alcohol Binge [facility] Sex Assigned At [facility] Tobacco use and exposure 2019-07-11 00:00:00 2019-07-11 00:00:00 Andreae r used [facility] Alcohol intake 2019-07-11 00:00:00 2019-07-11 00:00:00 Current non-drinker of alcohol (finding) [facility] Arsalane r History SDOH Alcohol Frequency 2019-07-05 00:00:00 2019-07-05 00:00:0 0 1 [facility] Smoking Status Start Date Stop Date Source Never smoker [facility] Medications Ordered Medication Name Filled Medication Name Start Date Stop Da te Current Medication? Ordering Clinician Indication Dosage Frequency Signature (SIG) Comments Components Source Azithromycin (Z-Foster) 250 Mg TABLET Azithromycin (Z-Foster) 250 Mg TABLET 2020-01-14 02:59:00 Yes 250 Use As Directed for Infection [facility] Naproxen Naproxen 2020-01-14 02:57:00 Yes 500 Twice A Day for Muscle Pain And Inflammation [facility] Methocarbamol (Robaxin-750) 750 Mg TABLET Methocarbamo l (Robaxin-750) 750 Mg TABLET 2020-01-14 02:55:00 Yes Every 8 Hours for Muscle Pain [facility] gabapentin (NEURONTIN) 300 MG capsule 2019-07-12 10:45:29 Yes 300mg Q.5D Take 300 mg by mouth 2 (two) times daily. [facility] acetaminophen-codeine (TYLENOL #3) 300-30 mg per tablet 2019-07-12 10:45:29 Yes 1{tbl} Take 1 tablet b y mouth every 4 (four) hours as needed for Pain. [facility] calcitriol (ROCALTROL) 0.25 MCG capsule 2019-07-12 10:45:29 Yes .25ug Q.5D Take 0.25 mcg by mouth 2 (two) times daily. [facility] calcium carbonate (CALCIUM 500 ORAL) 2019-07-11 13:33: 46 2019-07-11 00:00:00 No Take by mouth. [facility] Omeprazole Omeprazole 2018-10-20 00:40:00 Yes 1 Quynh ly [facility] Ketorolac Tromethamine (Toradol) 10 Mg TABLET Ketorola c Tromethamine (Toradol) 10 Mg TABLET 2018-10-20 00:15:00 Yes 10 Every 8 Muarilio rs for Pain [facility] Acetaminophen With Codeine (Tylenol With Codeine #3 Ta blet) 1 Each TABLET Acetaminophen With Codeine (Tylenol With Codeine #3 Tablet) 1 Each TABLET Yes 300 Three Times A Day as needed for Prn [facility] Albuterol Sulfate (Proair Hfa Inhaler*) 8.5 Gm INH Alb uterol Sulfate (Proair Hfa Inhaler*) 8.5 Gm INH Yes 2 Vijaya ry 4 Hours as needed for Shortness Of Breath [facility] D-Methorphan Hb/P-Epd Hcl/Bpm (Bromfed Dm Cough Syrup) 118 Ml SYRUP D-Methorphan Hb/P-Epd Hcl/Bpm (Bromfed Dm Cough Syrup) 118 Ml SYRUP Yes 10 Every 6 Hours [facility] Gabapentin Gabapentin Yes 300 Three Times A Day [facility] Methylprednisolone (Medrol) 4 Mg TABLET Methylprednisolone ( Medrol) 4 Mg TABLET Yes 4 Use As Directed C [facility] Fenofibrate Nanocrystallized (Fenofibrate) 145 Mg TABL ET Fenofibrate Nanocrystallized (Fenofibrate) 145 Mg TABLET 2019-05-21 00:00:00 No 160 Daily [facility] Sucralfate Sucralfate 2019-05-21 00:00:00 No 1 Thr ee Times A Day [facility] Pantoprazole Sodium (Protonix) 40 Mg TABLET. Pantopr azole Sodium (Protonix) 40 Mg TABLET. 2018-06-27 00:00:00 No 40 Daily [facility] Aspirin (Aspir 81) 81 Mg TABLET. Aspirin (Aspir 81) 81 Mg TABL ET. 2018-06-02 00:00:00 No 81 [facility] Atorvastatin Calcium (Lipitor) 20 Mg TABLET Atorvastat in Calcium (Lipitor) 20 Mg TABLET 2018-06-02 00:00:00 No 20 Daily [facility] Cetirizine Hcl Cetirizine Hcl 2018-06-02 00:00:00 No 10 Daily [facility] Ferrous Sulfate Ferrous Sulfate 2018-06-02 00:00:00 No 325 Daily [facility] Ibuprofen Ibuprofen 2018-06-02 00:00:00 No 400 As Ne eded [facility] Brompheniramin/Pe/Dextromethor (Cold & Cough Elixir) 1 18 Ml SOLUTION Brompheniramin/Pe/Dextromethor (Cold & Cough Elixir) 118 Ml SOLUTION 2017-07-02 00:00:00 No [facility] Acyclovir Acyclovir 2017-06-07 00:00:00 No 400 Daily [facility] Gabapentin Gabapentin 2017-06-07 00:00:00 No Twi ce A Day [facility] Tramadol Hcl (Ultram) 50 Mg TABLET Tramadol Hcl (Ultram) 50 Mg T ABLET 2017-06-07 00:00:00 No 50 Every 6 Hours as nee ded for Pain [facility] Vital Signs Vital Name Observation Time Observation Value Comments Source Weight 2020-04-16 16:24:00 140 [lb_av] [facility] BMI (Body Mass Index) 2020-04-16 16:24:00 29.3 kg/m2 [facility] Body Temperature 2020-01-16 20:18:00 98.8 [degF] [facility] Weight 2020-01-16 18:47:00 145 [lb_av] [facility] BMI (Body Mass Index) 2020-01-16 18:47:00 30.3 kg/m2 [facility] Weight 2020 23:40:00 145 [lb_av] [facility] BMI (Body Mass Index) 2020 23:40:00 30.3 kg/m2 [facility] Systolic blood pressure 2019-07-12 08:48:00 140 mm[Hg] [facility] Diastolic blood pressure 2019-07-12 08:48:00 67 mm[Hg] [facility] Heart rate 2019-07-12 08:48:00 52 /min [facility] Body temperature 2019-07-12 08:48:00 36.11 Kathy [facility] Respiratory rate 2019-07-12 08:48:00 18 /min [facility] Oxygen saturation in Arterial blood by Pulse oximetry 2018-08 08:48:00 98 /min [facility] height 2019-07-11 06:20:00 147.3 cm [facility] Body weight 2019-07-11 06:20:00 63.186 kg [facility] BMI 2019-07-11 06:20:00 29.11 kg/m2 [facility] Body Temperature 2019-05-22 12:00:00 97.0 [degF] [facility] Procedures Procedure Date / Time Performed Performing Clinician [facility] e Computed tomography of abdomen and pelvis with contrast 2019 00:00:00 BULMARO THEODORE [facility] CALCIUM 2019-07-17 11:28:00 Fareed Vang [facility] CALCIUM, IONIZED 2019-07-12 08:40:00 Taj Fareed [facility] CALCIUM, IONIZED 2019-07-11 21:47:00 Taj Fareedlissett Lomeli [facility] CALCIUM, IONIZED 2019-07-11 11:12:00 Taj [facility] PTH, INTACT 2019-07-11 11:12:00 Fareed Vang [facility] TISSUE EXAM 2019-07-11 09:47:00 Taj Fareedlissett Lomeli [facility] THYROIDECTOMY,TOTAL 2019-07-11 07:31:00 Fareed Vang [facility] PROCEDURE W/ NIMS 2019-07-11 07:31:00 Fareed Vang [facility] HEMOGLOBIN 2019-07-05 16:34:00 Kelvin Sanchez [facility] PROTHROMBIN TIME/INR 2019-07-05 16:34[facility] 2019-07-05 16:34:00 [facility] Planned Activity Planned Date Details Comments Source Future Scheduled Test 2020-04-16 00:00:00 INFLUENZA VACCINE (#1) [code = INFLUENZA VACCINE (#1)] [facility] Future Scheduled Test 2009-01-12 00:00:00 Lipid panel (proce dure) [code = 78241782] [facility] Future Scheduled Test 1985-01-12 00:00:00 Screening for laura gnant neoplasm of cervix (procedure) [code = 018054495] [facility] Future Scheduled Test 1965 00:00:00 Screening for laura gnant neoplasm of breast (procedure) [code = 668102830] [facility] Future Scheduled Test 1964 00:00:00 Screening for laura gnant neoplasm of colon (procedure) [code = 075023643] [facility] Instructions Headache [facility] Encounters Start Date/Time End Date/Time Encounter Type Admission Type [facility] Care Department Encounter ID Source 2020-04-16 16:10:00 2020-04-16 19:21:00 Departed Emergency Room 1 MARIA ISABEL ARIAS [facility] [id number] [facility] 2020-01-16 18:40:00 2020-01-16 20:22:00 Departed Emergency Room [facility] [id number] [facility] 2020 23:11:00 2020-01-14 03:15:00 Departed Emergency Room 1 MAINORJanelleCLAYTON [facility] [id number] [facility] 2019-12-04 07:18:00 2019-12-04 10:11:00 Departed Emergency Room 1 BULMARO THEODORE [facility] [id number] [facility] 2019-06-19 09:23:00 2019-06-19 09:23:00 Registered Clinic 3 STEPHANE ALICEA [facility] [id number] [facility] 2019-05-20 19:49:00 2019-05-22 14:44:00 Discharged Inpatient (obs) 1 [facility] [id number] [facility] 2019-04-23 11:42:00 2019-04-23 13:56:00 Departed Emergency Room 1 DYLAN ARTIS [facility] [id number] [facility] 2019-02-22 04:24:00 2019-02-22 06:08:00 Departed Emergency Room 1 ANN CHADWICK [facility] [id number] [facility] 2018-12-02 09:49:00 2018-12-02 14:30:00 Departed Emergency Room 1 MIKALA EVANS [facility] [id number] [facility] 2018-10-20 06:36:00 2018-10-23 17:21:00 Discharged Inpatient (obs) 1 MARY CIRO [facility] [id number] [facility] 2018-10-20 00:06:00 2018-10-20 01:53:00 Departed Emergency Room 1 CARLEEN ALBERT [facility] [id number] [facility] 2018-07-04 11:47:00 2018-07-04 11:47:00 Registered Clinic 3 LIZZIE GASTON [facility] [id number] [facility]. [facility] 2018-06-29 10:24:00 2018-06-29 10:24:00 Registered Surgical Day Care [facility] [id number] [facility]. [facility] 2018-06-02 17:38:00 2018-06-05 13:27:00 Discharged Inpatient (obs) 9 CIRO HERNANDEZ [facility] [id number] [facility] 2018-05-03 16:59:00 2018-05-03 21:58:00 Departed Emergency Room 1 DARREN PERSAUD [facility] [id number] [facility] 2018-01-14 14:52:00 2018-01-14 18:17:00 Departed Emergency Room [facility] [id number] [facility] 2017-10-02 00:22:00 2017-10-02 03:38:00 Departed Emergency Room ER ANN CHADWICK [facility] [id number] [facility] 2017-07-26 19:54:00 2017-07-28 10:35:00 Discharged Inpatient (obs) ER DYLAN PRUITT [facility] [id number] [facility] 2017-07-01 05:24:00 2017-07-02 11:20:00 Discharged Inpatient (obs) ER BULMARO THEODORE [facility] [id number] [facility] 2017-06-07 06:42:00 2017-06-07 09:18:00 Departed Emergency Room ER HELEN GRIFFIN [facility] [id number] [facility] Results Test Description Test Time Test Comments Results Result Comments Source CT BRAIN WO-HOPD 2020-04-16 17:04:00 [place] [address] Patient Name: SASHA POPE MR #: [id number] : 1965 Age/Sex: 55/F Req #: [id number] Adm Physician: Ordered by: MARIA ISABEL ARIAS DO Report #: [id number] Location: [facility] Room/Bed: Procedure: [id number] HOPD/CT BRAIN WO-HOPD Exam Date: 04/16/20 Exam Time: 1649 REPORT STATUS: Signed Exam: Head CT without contrast History: Severe headache Comparison studies: Head CT 07/26/2017. Technique: Axial images were obtained from the skull base to the vertex. Coronal and sagittal images reconstructed from the axial data. Dose modulation, iterative reconstruction, and/or weight based adjustment of the mA/kV was utilized to reduce the radiation dose to as low as reasonably achievable. Radiation dose: Total DLP: 969.14 mGy*cm. Estimated effective dose: DLP x 0.015 Intravenous contrast: None Findings: Scalp: No abnormalities. Bones: No fractures, blastic or lytic lesions. Brain sulci: Appropriate for age. Ventricles: Normal in size and configuration. No hydrocephalus. Extra-axial spaces: No masses, no fluid collection. Parenchyma: No mass, acute hemorrhage or acute or chronic cortical insults. Incidental physiologic calcifications in the globi pallidi. Sellar/suprasellar region: No abnormalities. Craniocervical junction: Patent foramen magnum. 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 Middle ear cavities and mastoids: Clear. Included paranasal sinuses: Clear. Additional findings: Atherosclerotic calcifications in the carotid siphons. IMPRESSION: 1. No acute abnormalities. 2. No changes from the prior head CT of 07/26/2017. Signed by: Dr. John Olmos M.D. on 04/16/2020 5:09 PM Dictated By: JOHN OLMOS MD 08 Transcribed By: GARO on 04/16/201708 COPY TO: MARIA ISABEL ARIAS DO CT CHEST W/O CONTRAST-HOPD 2020-01-14 01:30:00 [place] [address] Patient Name: SASHA POPE MR #: [id number] : 1965 Age/Sex: 55/F Req #: [id number] Adm Physician: Ordered by: CLAYTON ORR MD Report #: [id number] Location: [facility] Room/Bed: Procedure: [id number] HOPD/CT CHEST W/O CONTRAST-HOPD Exam Date: Exam [...] ORR MD CT ABDOMEN/PELVIS W 2019-12-04 09:41:00 [place] [address] Patient Name: SASHA POPE MR #: [id number] : 1965 Age/Sex: 54/F [facility] #: [id number] Req #: [id number] [facility] Physician: Ordered by: BULMARO THEODORE MD Report #: [id number] Location: ER Room/Bed: Procedure: [id number] CT/CT ABDOMEN/PELVIS W Exam Date: 12/04/19 Exam [...] (test code = 5821-4) 0-5 0-5 [facility] [id number] 08:32:00* Test Item Value Reference Range Interpretation Comments Urine RBC (test code = 23557-5) NONE 0-5 [facility] Ajmvgpmx1675-52-40 08:32:00* Test Item Value Reference Range Interpretation Comments Urine Bacteria (test code = 00123-1) FEW NONE [facility] Epithelial Kfhfa1297-37-41 08:32:00 * Test Item Value Reference Range Interpretation Comments Urine Epithelial Cells (test code = 07798-9) FEW NONE [facility] Qiqyh8435-01-82 08:18:00* Test Item Value Reference Range Interpretation Comments Sodium Level (test code = 2951-2) 140 136-145 [facility]assium Jsesv1569-76-46 08:18:00* Test Item Value Reference Range Interpretation Comments Potassium Level (test code = 2823-3) 4.0 3.5-5.1 [facility] HospitalChloride Katck5413-22-05 08:18:00* Test Item Value Reference Range Interpretation Comments Chloride Level (test code = 2075-0) 106 98-107 [facility] HospitalCarbon Dioxide Kwstk6454-29-70 08:18:00* Test Item Value Reference Range Interpretation Comments Carbon Dioxide Level (test code = 2028-9) 27 22-29 [facility] HospitalAnion [id number] 08:18:00* Test Item Value Reference Range Interpretation Comments Anion Gap (test code = 07342-3) 11.0 8-16 [facility] HospitalBlood Urea Abmmueot7548-50-99 08:18:00* Test Item Value Reference Range Interpretation Comments Blood Urea Nitrogen (test code = 3094-0) 19 7-26 [facility] HospitalCreatinine2020-04-20 08:18:00* Test Item Value Reference Range Interpretation Comments Creatinine (test code = 2160-0) 0.71 0.57-1.11 [facility] HospitalBUN/Creatinine Wkhmj7384-32-76 08:18:00* Test Item Value Reference Range Interpretation Comments BUN/Creatinine Ratio (test code = 3097-3) 27 6-25 H [facility] HospitalEstimat Glomerular Filtration Rate 2019-12-04 08:18:00* Test Item Value Reference Range Interpretation Comments Estimat Glomerular Filtration Rate (test code = 041919914) > 60 >60 Ranges were taken from the National Kidney Disease Education Program and the [employer] community [employer] literature.Reference ranges:60 or greater: Smljch84-32 ( for 3 consecutive months): Chronic kidney disease 15 or less: Kidney failureMethodist Southlake HospitalGlucose Vxmnc1519-65-88 08:18:00* Test Item Value Reference Range Interpretation Comments Glucose Level (test code = WGJ9038) 92 74-118 [facility] HospitalCalcium Ngpym2364-98-44 08:18:00* Test Item Value Reference Range Interpretation Comments Calcium Level (test code = 34538-0) 9.3 8.4-10.2 [facility] HospitalTotal Ncnvryjib8301-76-21 08:18:00* Test Item Value Reference Range Interpretation Comments Total Bilirubin (test code = 1975-2) 0.3 0.2-1.2 [facility] HospitalAspartate Amino Transf (AST/SGOT) 2019-12-04 08:18:00* Test Item Value Reference Range Interpretation Comments Aspartate Amino Transf (AST/SGOT) (test code = Aspartate Amino Transf (AST/SGOT)) 52 5-34 H [facility] HospitalAlanine Aminotransferase (ALT/SGPT) 2019-12-04 08:18:00* Test Item Value Reference Range Interpretation Comments Alanine Aminotransferase (ALT/SGPT) (test code = 1742-6) 80 0-55 H [facility] HospitalTotal Jaqpzbl6006-29-30 08:18:00* Test Item Value Reference Range Interpretation Comments Total Protein (test code = 2885-2) 7.3 6.5-8.1 [facility] HospitalAlbumin2020-04-20 08:18:00* Test Item Value Reference Range Interpretation Comments Albumin (test code = 1751-7) 3.3 3.5-5.0 L [facility] HospitalGlobulin2020-04-20 08:18:00* Test Item Value Reference Range Interpretation Comments Globulin (test code = 31820-0) 4.0 2.3-3.5 H [facility] HospitalAlbumin/Globulin Vpzbv4008-18-37 08:18:00 * Test Item Value Reference Range Interpretation Comments Albumin/Globulin Ratio (test code = 1759-0) 0.8 0.8-2.0 [facility] HospitalAlkaline Stqxohrzbpr9053-17-51 08:18:00* Test Item Value Reference Range Interpretation Comments Alkaline Phosphatase (test code = 6768-6) 83 40-150 [facility] HospitalUrine Vifnn9759-71-41 08:16:00* Test Item Value Reference Range Interpretation Comments Urine Color (test code = 5778-6) YELLOW YELLOW [facility] HospitalU[facility] Ydmwsql7974-24-83 08:16:00* Test Item Value Reference Range Interpretation Comments Urine Clarity (test code = 45381-4) CLEAR CLEAR [facility] HospitalU[facility] Specific Vjvjope2923-69-87 08:16:00 * Test Item Value Reference Range Interpretation Comments Urine Specific [place] (test code = 5811-5) 1.020 1.010-1.02 5 [facility] [id number] 08:16:00* Test Item Value Reference Range Interpretation Comments Urine pH (test code = 24651-6) 6 5-7 [facility] Leukocyte Itlgnhmo3101-84-17 08:16:00* Test Item Value Reference Range Interpretation Comments Urine Leukocyte Esterase (test code = 5799-2) NEGATIVE NEGATIVE [facility] Hospital[facility] Aszyoxo8690-72-71 08:16:00* Test Item Value Reference Range Interpretation Comments Urine Nitrite (test code = 16567-9) NEGATIVE NEGATIVE [facility] Hospital[facility] Gsywnxl6601-89-28 08:16:00* Test Item Value Reference Range Interpretation Comments Urine Protein (test code = 5804-0) NEGATIVE NEGATIVE [facility] Hospital[facility] Glucose (UA)2019-12-04 08:16:00* Test Item Value Reference Range Interpretation Comments Urine Glucose (UA) (test code = 2349-9) NEGATIVE NEGATIVE [facility] Hospital[facility] Uakaqfh4207-17-13 08:16:00* Test Item Value Reference Range Interpretation Comments Urine Ketones (test code = 06349-0) NEGATIVE NEGATIVE [facility] Hospital[facility] Zgsseosszqnf5690-19-71 08:16:00* Test Item Value Reference Range Interpretation Comments Urine Urobilinogen (test code = 95386-1) 0.2 0.2-1 [facility] HospitalU[facility] Bavflxblt3535-14-83 08:16:00* Test Item Value Reference Range Interpretation Comments Urine Bilirubin (test code = 1978-6) NEGATIVE NEGATIVE [facility] HospitalU[facility] Phdaw3521-41-58 08:16:00* Test Item Value Reference Range Interpretation Comments Urine Blood (test code = 27481-0) NEGATIVE NEGATIVE [facility] HospitalWhite Blood Hbuuf2951-02-16 07:57:00* Test Item Value Reference Range Interpretation Comments White Blood Count (test code = 6690-2) 7.29 4.8-10.8 [facility] HospitalRed Blood Uiokj2035-47-37 07:57:00* Test Item Value Reference Range Interpretation Comments Red Blood Count (test code = 789-8) 4.38 3.6-5.1 [facility] HospitalHemoglobin2020-04-20 07:57:00* Test Item Value Reference Range Interpretation Comments Hemoglobin (test code = 02179-6) 12.6 12.0-16.0 [facility] HospitalHematocrit2020-04-20 07:57:00* Test Item Value Reference Range Interpretation Comments Hematocrit (test code = 4544-3) 38.2 34.2-44.1 [facility] HospitalMean Corpuscular Iptjar3568-62-47 07:57:00* Test Item Value Reference Range Interpretation Comments Mean Corpuscular Volume (test code = 787-2) 87.2 81-99 [facility] HospitalMean Corpuscular Wofejbjdpm6255-37-23 07:57:00* Test Item Value Reference Range Interpretation Comments Mean Corpuscular Hemoglobin (test code = 785-6) 28.8 28-32 [facility] HospitalMean Corpuscular Hemoglobin Concent 2019-12-04 07:57:00* Test Item Value Reference Range Interpretation Comments Mean Corpuscular Hemoglobin Concent (test code = 786-4) 33.0 31-35 [facility] HospitalRed Cell Distribution Ozwwl4617-59-30 07:57:00* Test Item Value Reference Range Interpretation Comments Red Cell Distribution Width (test code = 88529-8) 13.2 11.7 -14.4 [facility] HospitalPlatelet Nejhz6183-17-77 07:57:00* Test Item Value Reference Range Interpretation Comments Platelet Count (test code = 777-3) 201 140-360 [facility] HospitalNeutrophils (%) (Auto)2019-12-04 07:57:00 * Test Item Value Reference Range Interpretation Comments Neutrophils (%) (Auto) (test code = 35376-2) 51.3 38.7-80.0 [facility] HospitalLymphocytes (%) (Auto)2019-12-04 07:57:00 * Test Item Value Reference Range Interpretation Comments Lymphocytes (%) (Auto) (test code = 736-9) 37.9 18.0-39.1 [facility] HospitalMonocytes (%) (Auto)2019-12-04 07:57:00* Test Item Value Reference Range Interpretation Comments Monocytes (%) (Auto) (test code = 5905-5) 6.9 4.4-11.3 [facility] HospitalEosinophils (%) (Auto)2019-12-04 07:57:00 * Test Item Value Reference Range Interpretation Comments Eosinophils (%) (Auto) (test code = 713-8) 3.3 0.0-6.0 [facility] HospitalBasophils (%) (Auto)2019-12-04 07:57:00* Test Item Value Reference Range Interpretation Comments Basophils (%) (Auto) (test code = 706-2) 0.3 0.0-1.0 [facility] HospitalIM GRANULOCYTES %2019-12-04 07:57:00* Test Item Value Reference Range Interpretation Comments IM GRANULOCYTES % (test code = IM GRANULOCYTES %) 0.3 0.0- 1.0 [facility] HospitalNeutrophils # (Auto)2019-12-04 07:57:00* Test Item Value Reference Range Interpretation Comments Neutrophils # (Auto) (test code = 751-8) 3.8 2.1-6.9 [facility] HospitalLymphocytes # (Auto)2019-12-04 07:57:00* Test Item Value Reference Range Interpretation Comments Lymphocytes # (Auto) (test code = 66029-6) 2.8 1.0-3.2 [facility] HospitalMonocytes # (Auto)2019-12-04 07:57:00* Test Item Value Reference Range Interpretation Comments Monocytes # (Auto) (test code = 742-7) 0.5 0.2-0.8 [facility] HospitalEosinophils # (Auto)2019-12-04 07:57:00* Test Item Value Reference Range Interpretation Comments Eosinophils # (Auto) (test code = 711-2) 0.2 0.0-0.4 [facility] HospitalBasophils # (Auto)2019-12-04 07:57:00* Test Item Value Reference Range Interpretation Comments Basophils # (Auto) (test code = 704-7) 0.0 0.0-0.1 [facility] HospitalAbsolute Immature Granulocyte (auto 2019-12-04 07:57:00* Test Item Value Reference Range Interpretation Comments Absolute Immature Granulocyte (auto (jesus t code = Absolute Immature Granulocyte (auto) 0.02 0-0.1 [facility] HospitalBlood leukocytes automated count (number/volume)2019-12-04 07:34:00* Test Item Value Reference Range Interpretation Comments White Blood Count (test code = 6690-2) 7.29 4.8-10.8 [facility] HospitalBlunited [facility] erythrocytes automated count (number/volume)2019-12-04 07:34:00* Test Item Value Reference Range Interpretation Comments Red Blood Count (test code = 789-8) 4.38 3.6-5.1 [facility] HospitalBlood hemoglobin measurement (moles/volume)2019-12-04 07:34:00* Test Item Value Reference Range Interpretation Comments Hemoglobin (test code = 44512-1) 12.6 12.0-16.0 [facility] HospitalAutomated blood hematocrit (volume fraction)2019-12-04 07:34:00* Test Item Value Reference Range Interpretation Comments Hematocrit (test code = 4544-3) 38.2 34.2-44.1 [facility] HospitalAutomated erythrocyte mean corpuscular gqkdes7572-29-85 07:34:00* Test Item Value Reference Range Interpretation Comments Mean Corpuscular Volume (test code = 787-2) 87.2 81-99 [facility] HospitalAutomated erythrocyte mean corpuscular hemoglobin (mass per erythrocyte)2019-12-04 07:34:00* Test Item Value Reference Range Interpretation Comments Mean Corpuscular Hemoglobin (test code = 785-6) 28.8 28-32 [facility] HospitalAutomated erythrocyte mean corpuscular hemoglobin concentration measurement (mass/volume)2019-12-04 07:34:00* Test Item Value Reference Range Interpretation Comments Mean Corpuscular Hemoglobin Concent (test code = 786-4) 33.0 31-35 [facility] HospitalRDW VljNo-Jox4577-77-20 07:34:00* Test Item Value Reference Range Interpretation Comments Red Cell Distribution Width (test code = 41595-9) 13.2 11.7 -14.4 [facility] HospitalAutomated blood platelet count (count/volume)2019-12-04 07:34:00* Test Item Value Reference Range Interpretation Comments Platelet Count (test code = 777-3) 201 140-360 [facility] HospitalAutomated blood segmented neutrophil count as percentage of total yeeolekdmk5396-81-77 07:34:00* Test Item Value Reference Range Interpretation Comments Neutrophils (%) (Auto) (test code = 36925-2) 51.3 38.7-80.0 [facility] HospitalAutomated blood lymphocyte count as percentage ot total fjxthlnfzj8443-78-75 07:34:00* Test Item Value Reference Range Interpretation Comments Lymphocytes (%) (Auto) (test code = 736-9) 37.9 18.0-39.1 [facility] HospitalAutomated blood monocyte count as percentage of total khayrqbblo9638-22-53 07:34:00* Test Item Value Reference Range Interpretation Comments Monocytes (%) (Auto) (test code = 5905-5) 6.9 4.4-11.3 [facility] HospitalAutomated blood eosinophil count as percentage of total cbgrzdtjzn2607-54-57 07:34:00* Test Item Value Reference Range Interpretation Comments Eosinophils (%) (Auto) (test code = 713-8) 3.3 0.0-6.0 [facility] HospitalAutomated blood basophil count as percentage of total lugmbmzgme0174-00-62 07:34:00* Test Item Value Reference Range Interpretation Comments Basophils (%) (Auto) (test code = 706-2) 0.3 0.0-1.0 [facility] HospitalFluoroscopic procedure less than one hour cgnqhiai7050-15-38 07:34:00* Test Item Value Reference Range Interpretation Comments IM GRANULOCYTES % (test code = IM GRANULOCYTES %) 0.3 0.0- 1.0 [facility] HospitalAutomated blood neutrophil count 2019-12-04 07:34:00* Test Item Value Reference Range Interpretation Comments Neutrophils # (Auto) (test code = 751-8) 3.8 2.1-6.9 [facility] HospitalBlood lymphocytes count (number/volume) 2019-12-04 07:34:00* Test Item Value Reference Range Interpretation Comments Lymphocytes # (Auto) (test code = 83392-0) 2.8 1.0-3.2 [facility] HospitalBlood monocytes automated count (number/volume)2019-12-04 07:34:00* Test Item Value Reference Range Interpretation Comments Monocytes # (Auto) (test code = 742-7) 0.5 0.2-0.8 [facility] HospitalAutomated blood eosinophil count 2019-12-04 07:34:00* Test Item Value Reference Range Interpretation Comments Eosinophils # (Auto) (test code = 711-2) 0.2 0.0-0.4 [facility] HospitalAutomated blood basophil count (count/volume)2019-12-04 07:34:00* Test Item Value Reference Range Interpretation Comments Basophils # (Auto) (test code = 704-7) 0.0 0.0-0.1 [facility] HospitalFluoroscopic procedure less than one hour raxhoudo6227-43-98 07:34:00* Test Item Value Reference Range Interpretation Comments Absolute Immature Granulocyte (auto (jesus t code = Absolute Immature Granulocyte (auto) 0.02 0-0.1 [facility] HospitalUrine color xmibglnuxjarw1568-51-19 07:34:00* Test Item Value Reference Range Interpretation Comments Urine Color (test code = 5778-6) YELLOW YELLOW [facility] HospitalUrine alqfwsi7204-56-35 07:34:00* Test Item Value Reference Range Interpretation Comments Urine Clarity (test code = 18059-9) CLEAR [facility]AR [facility] by Test strip 2019-12-04 07:34:00* Test Item Value Reference Range Interpretation Comments Urine Specific [place] (test code = 5811-5) 1.020 1.010-1.02 5 [facility] HospitalUrine pH measurement by automated test uwayd8826-73-84 07:34:00* Test Item Value Reference Range Interpretation Comments Urine pH (test code = 61688-9) 6 5-7 [facility] HospitalUrine leukocyte esterase detection by joazmqjc8558-85-70 07:34:00* Test Item Value Reference Range Interpretation Comments Urine Leukocyte Esterase (test code = 5799-2) NEGATIVE NEGATIVE [facility] HospitalUrine nitrite qanzgrghk1934-66-53 07:34:00* Test Item Value Reference Range Interpretation Comments Urine Nitrite (test code = 93454-8) NEGATIVE NEGATIVE [facility] HospitalUrine protein measurement by test strip (mass/volume)2019-12-04 07:34:00* Test Item Value Reference Range Interpretation Comments Urine Protein (test code = 5804-0) NEGATIVE NEGATIVE [facility] HospitalUrine glucose mulmbnaiq8638-36-31 07:34:00* Test Item Value Reference Range Interpretation Comments Urine Glucose (UA) (test code = 2349-9) NEGATIVE NEGATIVE [facility] HospitalUrine ketones detection by automated test yrrco4587-01-96 07:34:00* Test Item Value Reference Range Interpretation Comments Urine Ketones (test code = 91311-2) NEGATIVE NEGATIVE [facility] HospitalUrine urobilinogen measurement by test strip (mass/volume)2019-12-04 07:34:00* Test Item Value Reference Range Interpretation Comments Urine Urobilinogen (test code = 98085-1) 0.2 0.2-1 [facility] HospitalUrine total bilirubin measurement (mass/volume)2019-12-04 07:34:00* Test Item Value Reference Range Interpretation Comments Urine Bilirubin (test code = 1978-6) NEGATIVE NEGATIVE [facility] HospitalUrine erythrocytes nrovzafsl1197-04-77 07:34:00* Test Item Value Reference Range Interpretation Comments Urine Blood (test code = 20213-9) NEGATIVE NEGATIVE [facility] HospitalAutomated urine sediment leukocyte count by microscopy (number/high power field)2019-12-04 07:34:00* Test Item Value Reference Range Interpretation Comments Urine WBC (test code = 5821-4) 0-5 0-5 [facility] HospitalErythrocytes detection in urine sediment by light ykwzivxlij5491-73-88 07:34:00* Test Item Value Reference Range Interpretation Comments Urine RBC (test code = 57807-8) NONE 0-5 [facility] HospitalBacteria detection in urine sediment by light efvjkawpgr0519-51-12 07:34:00* Test Item Value Reference Range Interpretation Comments Urine Bacteria (test code = 85380-2) FEW NONE [facility] HospitalEpithelial cells detection in urine sediment by light krfotmrntn1872-94-79 07:34:00* Test Item Value Reference Range Interpretation Comments Urine Epithelial Cells (test code = 90758-7) FEW NONE [facility] sodium measurement (moles/volume)2019-12-04 07:34:00* Test Item Value Reference Range Interpretation Comments Sodium Level (test code = 2951-2) 140 136-145 [facility] or plasma potassium measurement (moles/volume)2019-12-04 07:34:00* Test Item Value Reference Range Interpretation Comments Potassium Level (test code = 2823-3) 4.0 3.5-5.1 [facility] or plasma chloride measurement (moles/volume)2019-12-04 07:34:00* Test Item Value Reference Range Interpretation Comments Chloride Level (test code = 2075-0) 106 98-107 [facility] or plasma carbon dioxide, total measurement (moles/volume)2019-12-04 07:34:00* Test Item Value Reference Range Interpretation Comments Carbon Dioxide Level (test code = 2028-9) 27 22-29 [facility] or plasma anion nsk7214-87-58 07:34:00* Test Item Value Reference Range Interpretation Comments Anion Gap (test code = 07685-5) 11.0 8-16 [facility] plasma urea nitrogen measurement (mass/volume)2019-12-04 07:34:00* Test Item Value Reference Range Interpretation Comments Blood Urea Nitrogen (test code = 3094-0) 19 7-26 [facility] plasma creatinine measurement (mass/volume)2019-12-04 07:34:00* Test Item Value Reference Range Interpretation Comments Creatinine (test code = 2160-0) 0.71 0.57-1.11 [facility] or plasma urea nitrogen/creatinine mass gxlnr5240-11-27 07:34:00* Test Item Value Reference Range Interpretation Comments BUN/Creatinine Ratio (test code = 3097-3) 27 6-25 [facility] HospitalEstimated glomerular filtration rate (GFR) uoyfnhrzxqcmd8096-34-74 07:34:00* Test Item Value Reference Range Interpretation Comments Estimat Glomerular Filtration Rate (test code = 321947796) > 60 >60 Ranges were taken from the National Kidney Disease Education Program and the [facility] literature.Reference ranges:60 or greater: Fwrvtt49-10 ( for 3 consecutive months): Chronic kidney disease 15 or less: Kidney failureMethod[facility] HospitalGlucose ugqijwredph4002-63-37 07:34:00* Test Item Value Reference Range Interpretation Comments Glucose Level (test code = ZWN8590) 92 74-118 [facility] plasma calcium measurement (mass/volume)2019-12-04 07:34:00* Test Item Value Reference Range Interpretation Comments Calcium Level (test code = 10704-4) 9.3 8.4-10.2 [facility] plasma total bilirubin measurement (mass/volume)2019-12-04 07:34:00* Test Item Value Reference Range Interpretation Comments Total Bilirubin (test code = 1975-2) 0.3 0.2-1.2 [facility] HospitalFluoroscopic procedure less than one hour tkhrgsvl3794-38-81 07:34:00* Test Item Value Reference Range Interpretation Comments Aspartate Amino Transf (AST/SGOT) (test code = Aspartate Amino Transf (AST/SGOT)) 52 5-34 [facility] or plasma alanine aminotransferase measurement (enzymatic activity/volume)2019-12-04 07:34:00* Test Item Value Reference Range Interpretation Comments Alanine Aminotransferase (ALT/SGPT) (test code = 1742-6) 80 0-55 [facility] or plasma protein measurement (mass/volume)2019-12-04 07:34:00* Test Item Value Reference Range Interpretation Comments Total Protein (test code = 2885-2) 7.3 6.5-8.1 [facility] plasma albumin measurement (mass/volume)2019-12-04 07:34:00* Test Item Value Reference Range Interpretation Comments Albumin (test code = 1751-7) 3.3 3.5-5.0 [facility] HospitalPlasma globulin measurement (mass/volume) 2019-12-04 07:34:00* Test Item Value Reference Range Interpretation Comments Globulin (test code = 53907-0) 4.0 2.3-3.5 [facility] or plasma albumin/globulin mass xfdbg9552-76-80 07:34:00* Test Item Value Reference Range Interpretation Comments Albumin/Globulin Ratio (test code = 1759-0) 0.8 0.8-2.0 [facility] plasma alkaline phosphatase measurement (enzymatic activity/volume)2019-12-04 07:34:00* Test Item Value Reference Range Interpretation Comments Alkaline Phosphatase (test code = 6768-6) 83 40-150 [facility] HospitalBlood leukocytes automated count (number/volume)2019-12-04 07:34:00* Test Item Value Reference Range Interpretation Comments White Blood Count (test code = 6690-2) 7.29 4.8-10.8 [facility] HospitalBlood erythrocytes automated count (number/volume)2019-12-04 07:34:00* Test Item Value Reference Range Interpretation Comments Red Blood Count (test code = 789-8) 4.38 3.6-5.1 [facility] HospitalBlood hemoglobin measurement (moles/volume)2019-12-04 07:34:00* Test Item Value Reference Range Interpretation Comments Hemoglobin (test code = 07703-0) 12.6 12.0-16.0 [facility] HospitalAutomated blood hematocrit (volume fraction)2019-12-04 07:34:00* Test Item Value Reference Range Interpretation Comments Hematocrit (test code = 4544-3) 38.2 34.2-44.1 [facility] HospitalAutomated erythrocyte mean corpuscular ugzfom4144-95-15 07:34:00* Test Item Value Reference Range Interpretation Comments Mean Corpuscular Volume (test code = 787-2) 87.2 81-99 [facility] HospitalAutomated erythrocyte mean corpuscular hemoglobin (mass per erythrocyte)2019-12-04 07:34:00* Test Item Value Reference Range Interpretation Comments Mean Corpuscular Hemoglobin (test code = 785-6) 28.8 28-32 [facility] HospitalAutomated erythrocyte mean corpuscular hemoglobin concentration measurement (mass/volume)2019-12-04 07:34:00* Test Item Value Reference Range Interpretation Comments Mean Corpuscular Hemoglobin Concent (test code = 786-4) 33.0 31-35 [facility] HospitalRDW BqtAc-Sxl2934-68-20 07:34:00* Test Item Value Reference Range Interpretation Comments Red Cell Distribution Width (test code = 49760-7) 13.2 11.7 -14.4 [facility] HospitalAutomated blood platelet count (count/volume)2019-12-04 07:34:00* Test Item Value Reference Range Interpretation Comments Platelet Count (test code = 777-3) 201 140-360 [facility] HospitalAutomated blood segmented neutrophil count as percentage of total kmlvpnnnlh1452-98-54 07:34:00* Test Item Value Reference Range Interpretation Comments Neutrophils (%) (Auto) (test code = 10906-9) 51.3 38.7-80.0 [facility] HospitalAutomated blood lymphocyte count as percentage ot total afboidfpjj2195-29-88 07:34:00* Test Item Value Reference Range Interpretation Comments Lymphocytes (%) (Auto) (test code = 736-9) 37.9 18.0-39.1 [facility] HospitalAutomated blood monocyte count as percentage of total wigfyxmpoy3543-45-20 07:34:00* Test Item Value Reference Range Interpretation Comments Monocytes (%) (Auto) (test code = 5905-5) 6.9 4.4-11.3 [facility] HospitalAutomated blood eosinophil count as percentage of total zlkvgivfwb0379-55-51 07:34:00* Test Item Value Reference Range Interpretation Comments Eosinophils (%) (Auto) (test code = 713-8) 3.3 0.0-6.0 [facility] HospitalAutomated blood basophil count as percentage of total qjqjqpwahi1836-77-95 07:34:00* Test Item Value Reference Range Interpretation Comments Basophils (%) (Auto) (test code = 706-2) 0.3 0.0-1.0 [facility] HospitalFluoroscopic procedure less than one hour sfflioku8842-52-84 07:34:00* Test Item Value Reference Range Interpretation Comments IM GRANULOCYTES % (test code = IM GRANULOCYTES %) 0.3 0.0- 1.0 [facility] HospitalAutomated blood neutrophil count 2019-12-04 07:34:00* Test Item Value Reference Range Interpretation Comments Neutrophils # (Auto) (test code = 751-8) 3.8 2.1-6.9 [facility] HospitalBlood lymphocytes count (number/volume) 2019-12-04 07:34:00* Test Item Value Reference Range Interpretation Comments Lymphocytes # (Auto) (test code = 44007-1) 2.8 1.0-3.2 [facility] HospitalBlood monocytes automated count (number/volume)2019-12-04 07:34:00* Test Item Value Reference Range Interpretation Comments Monocytes # (Auto) (test code = 742-7) 0.5 0.2-0.8 [facility] HospitalAutomated blood eosinophil count 2019-12-04 07:34:00* Test Item Value Reference Range Interpretation Comments Eosinophils # (Auto) (test code = 711-2) 0.2 0.0-0.4 [facility] HospitalAutomated blood basophil count (count/volume)2019-12-04 07:34:00* Test Item Value Reference Range Interpretation Comments Basophils # (Auto) (test code = 704-7) 0.0 0.0-0.1 [facility] HospitalFluoroscopic procedure less than one hour lrgyjisq5858-94-96 07:34:00* Test Item Value Reference Range Interpretation Comments Absolute Immature Granulocyte (auto (jesus t code = Absolute Immature Granulocyte (auto) 0.02 0-0.1 [facility] HospitalUrine color vgpvhtgrifaiw3184-47-87 07:34:00* Test Item Value Reference Range Interpretation Comments Urine Color (test code = 5778-6) YELLOW YELLOW [facility] HospitalUrine noscuuh4446-59-55 07:34:00* Test Item Value Reference Range Interpretation Comments Urine Clarity (test code = 47781-5) CLEAR CLEAR [facility] gravity of Urine by Test strip 2019-12-04 07:34:00* Test Item Value Reference Range Interpretation Comments Urine Specific [place] (test code = 5811-5) 1.020 1.010-1.02 5 [facility] HospitalUrine pH measurement by automated test bscyf5335-47-84 07:34:00* Test Item Value Reference Range Interpretation Comments Urine pH (test code = 84671-4) 6 5-7 [facility] HospitalUrine leukocyte esterase detection by jvdfkdtb1832-35-02 07:34:00* Test Item Value Reference Range Interpretation Comments Urine Leukocyte Esterase (test code = 5799-2) NEGATIVE NEGATIVE [facility] HospitalUrine nitrite zqyvcufav1518-44-90 07:34:00* Test Item Value Reference Range Interpretation Comments Urine Nitrite (test code = 12639-9) NEGATIVE NEGATIVE [facility] HospitalUrine protein measurement by test strip (mass/volume)2019-12-04 07:34:00* Test Item Value Reference Range Interpretation Comments Urine Protein (test code = 5804-0) NEGATIVE NEGATIVE [facility] HospitalUrine glucose qssoxbdwo8426-90-40 07:34:00* Test Item Value Reference Range Interpretation Comments Urine Glucose (UA) (test code = 2349-9) NEGATIVE NEGATIVE [facility] HospitalUrine ketones detection by automated test hovno6226-26-73 07:34:00* Test Item Value Reference Range Interpretation Comments Urine Ketones (test code = 61943-9) NEGATIVE NEGATIVE [facility] HospitalUrine urobilinogen measurement by test strip (mass/volume)2019-12-04 07:34:00* Test Item Value Reference Range Interpretation Comments Urine Urobilinogen (test code = 76988-9) 0.2 0.2-1 [facility] HospitalUrine total bilirubin measurement (mass/volume)2019-12-04 07:34:00* Test Item Value Reference Range Interpretation Comments Urine Bilirubin (test code = 1978-6) NEGATIVE NEGATIVE [facility] HospitalUrine erythrocytes vbphpdoez5075-72-44 07:34:00* Test Item Value Reference Range Interpretation Comments Urine Blood (test code = 12096-5) NEGATIVE NEGATIVE [facility] HospitalAutomated urine sediment leukocyte count by microscopy (number/high power field)2019-12-04 07:34:00* Test Item Value Reference Range Interpretation Comments Urine WBC (test code = 5821-4) 0-5 0-5 [facility] HospitalErythrocytes detection in urine sediment by light cnhjtdztse6344-60-08 07:34:00* Test Item Value Reference Range Interpretation Comments Urine RBC (test code = 88948-7) NONE 0-5 [facility] HospitalBacteria detection in urine sediment by light ghiqbtzntg6763-42-45 07:34:00* Test Item Value Reference Range Interpretation Comments Urine Bacteria (test code = 36388-0) FEW NONE [facility] HospitalEpithelial cells detection in urine sediment by light mfufanglci3100-70-95 07:34:00* Test Item Value Reference Range Interpretation Comments Urine Epithelial Cells (test code = 68370-0) FEW NONE [facility] plasma sodium measurement (moles/volume)2019-12-04 07:34:00* Test Item Value Reference Range Interpretation Comments Sodium Level (test code = 2951-2) 140 136-145 [facility] or plasma potassium measurement (moles/volume)2019-12-04 07:34:00* Test Item Value Reference Range Interpretation Comments Potassium Level (test code = 2823-3) 4.0 3.5-5.1 [facility] or plasma chloride measurement (moles/volume)2019-12-04 07:34:00* Test Item Value Reference Range Interpretation Comments Chloride Level (test code = 2075-0) 106 98-107 [facility] or plasma carbon dioxide, total measurement (moles/volume)2019-12-04 07:34:00* Test Item Value Reference Range Interpretation Comments Carbon Dioxide Level (test code = 2028-9) 27 22-29 [facility] or plasma anion wph7744-09-06 07:34:00* Test Item Value Reference Range Interpretation Comments Anion Gap (test code = 58962-9) 11.0 8-16 [facility] plasma urea nitrogen measurement (mass/volume)2019-12-04 07:34:00* Test Item Value Reference Range Interpretation Comments Blood Urea Nitrogen (test code = 3094-0) 19 7-26 [facility] creatinine measurement (mass/volume)2019-12-04 07:34:00* Test Item Value Reference Range Interpretation Comments Creatinine (test code = 2160-0) 0.71 0.57-1.11 [facility] plasma urea nitrogen/creatinine mass eyrxw5534-19-91 07:34:00* Test Item Value Reference Range Interpretation Comments BUN/Creatinine Ratio (test code = 3097-3) 27 6-25 [facility] HospitalEstimated glomerular filtration rate (GFR) mdxmasaaiubqd3834-92-29 07:34:00* Test Item Value Reference Range Interpretation Comments Estimat Glomerular Filtration Rate (test code = 555805741) > 60 >60 Ranges were taken from the National Kidney Disease Education Program and the [facility] literature.Reference ranges:60 or greater: Kgumwk84-64 ( for 3 consecutive months): Chronic kidney disease 15 or less: Kidney failureMethod[facility] HospitalGlucose ydxolhtmamg3650-07-63 07:34:00* Test Item Value Reference Range Interpretation Comments Glucose Level (test code = OIT8314) 92 74-118 [facility] calcium [facility] (mass/volume)2019-12-04 07:34:00* Test Item Value Reference Range Interpretation Comments Calcium Level (test code = 74396-2) 9.3 8.4-10.2 [facility] total bilirubin measurement (mass/volume)2019-12-04 07:34:00* Test Item Value Reference Range Interpretation Comments Total Bilirubin (test code = 1975-2) 0.3 0.2-1.2 [facility]Flu[facility] less than one hour vvedildz0769-83-42 07:34:00* Test Item Value Reference Range Interpretation Comments Aspartate Amino Transf (AST/SGOT) (test code = Aspartate Amino Transf (AST/SGOT)) 52 5-34 [facility] alanine aminotransferase measurement (enzymatic activity/volume)2019-12-04 07:34:00* Test Item Value Reference Range Interpretation Comments Alanine Aminotransferase (ALT/SGPT) (test code = 1742-6) 80 0-55 [facility] protein measurement (mass/volume)2019-12-04 07:34:00* Test Item Value Reference Range Interpretation Comments Total Protein (test code = 2885-2) 7.3 6.5-8.1 [facility] albumin [facility] (mass/volume)2019-12-04 07:34:00* Test Item Value Reference Range Interpretation Comments Albumin (test code = 1751-7) 3.3 3.5-5.0 [facility] HospitalPlasma globulin measurement (mass/volume) 2019-12-04 07:34:00* Test Item Value Reference Range Interpretation Comments Globulin (test code = 59145-4) 4.0 2.3-3.5 [facility] albumin/globulin mass tyuie5030-74-81 07:34:00* Test Item Value Reference Range Interpretation Comments Albumin/Globulin Ratio (test code = 1759-0) 0.8 0.8-2.0 [facility] alkaline phosphatase measurement (enzymatic activity/volume)2019-12-04 07:34:00* Test Item Value Reference Range Interpretation Comments Alkaline Phosphatase (test code = 6768-6) 83 40-150 [facility]Blood leukocytes automated count (number/volume)2019-12-04 07:34:00* Test Item Value Reference Range Interpretation Comments White Blood Count (test code = 6690-2) 7.29 4.8-10.8 [facility]Blood erythrocytes automated count (number/volume)2019-12-04 07:34:00* Test Item Value Reference Range Interpretation Comments Red Blood Count (test code = 789-8) 4.38 3.6-5.1 [facility]Blood hemoglobin measurement (moles/volume)2019-12-04 07:34:00* Test Item Value Reference Range Interpretation Comments Hemoglobin (test code = 49247-1) 12.6 12.0-16.0 [facility] HospitalAutomated blood hematocrit (volume fraction)2019-12-04 07:34:00* Test Item Value Reference Range Interpretation Comments Hematocrit (test code = 4544-3) 38.2 34.2-44.1 [facility] HospitalAutomated erythrocyte mean corpuscular tosagb3801-80-51 07:34:00* Test Item Value Reference Range Interpretation Comments Mean Corpuscular Volume (test code = 787-2) 87.2 81-99 [facility] HospitalAutomated erythrocyte mean corpuscular hemoglobin (mass per erythrocyte)2019-12-04 07:34:00* Test Item Value Reference Range Interpretation Comments Mean Corpuscular Hemoglobin (test code = 785-6) 28.8 28-32 [facility] HospitalAutomated erythrocyte mean corpuscular hemoglobin concentration measurement (mass/volume)2019-12-04 07:34:00* Test Item Value Reference Range Interpretation Comments Mean Corpuscular Hemoglobin Concent (test code = 786-4) 33.0 31-35 [facility] HospitalRDW SieYp-Mhp0233-34-20 07:34:00* Test Item Value Reference Range Interpretation Comments Red Cell Distribution Width (test code = 89580-4) 13.2 11.7 -14.4 [facility] HospitalAutomated blood platelet count (count/volume)2019-12-04 07:34:00* Test Item Value Reference Range Interpretation Comments Platelet Count (test code = 777-3) 201 140-360 [facility] HospitalAutomated blood segmented neutrophil count as percentage of total gsakguptwf5480-46-88 07:34:00* Test Item Value Reference Range Interpretation Comments Neutrophils (%) (Auto) (test code = 28046-8) 51.3 38.7-80.0 [facility] HospitalAutomated blood lymphocyte count as percentage ot total bbmygcsqdw9522-23-86 07:34:00* Test Item Value Reference Range Interpretation Comments Lymphocytes (%) (Auto) (test code = 736-9) 37.9 18.0-39.1 [facility] HospitalAutomated blood monocyte count as percentage of total pfptpkeloc2456-85-46 07:34:00* Test Item Value Reference Range Interpretation Comments Monocytes (%) (Auto) (test code = 5905-5) 6.9 4.4-11.3 [facility] HospitalAutomated blood eosinophil count as percentage of total cbwothmtev1088-32-21 07:34:00* Test Item Value Reference Range Interpretation Comments Eosinophils (%) (Auto) (test code = 713-8) 3.3 0.0-6.0 [facility] HospitalAutomated blood basophil count as percentage of total eicwhkrtcy7921-18-78 07:34:00* Test Item Value Reference Range Interpretation Comments Basophils (%) (Auto) (test code = 706-2) 0.3 0.0-1.0 [facility] HospitalFluoroscopic procedure less than one hour buiukupq4860-40-51 07:34:00* Test Item Value Reference Range Interpretation Comments IM GRANULOCYTES % (test code = IM GRANULOCYTES %) 0.3 0.0- 1.0 [facility]Automated blood neutrophil count 2019-12-04 07:34:00* Test Item Value Reference Range Interpretation Comments Neutrophils # (Auto) (test code = 751-8) 3.8 2.1-6.9 [facility]Blood lymphocytes count (number/volume) 2019-12-04 07:34:00* Test Item Value Reference Range Interpretation Comments Lymphocytes # (Auto) (test code = 36945-4) 2.8 1.0-3.2 [facility] HospitalBlood monocytes automated count (number/volume)2019-12-04 07:34:00* Test Item Value Reference Range Interpretation Comments Monocytes # (Auto) (test code = 742-7) 0.5 0.2-0.8 [facility] HospitalAutomated blood eosinophil count 2019-12-04 07:34:00* Test Item Value Reference Range Interpretation Comments Eosinophils # (Auto) (test code = 711-2) 0.2 0.0-0.4 [facility] HospitalAutomated blood basophil count (count/volume)2019-12-04 07:34:00* Test Item Value Reference Range Interpretation Comments Basophils # (Auto) (test code = 704-7) 0.0 0.0-0.1 [facility] HospitalFluoroscopic procedure less than one hour xoqvqwmo1097-02-14 07:34:00* Test Item Value Reference Range Interpretation Comments Absolute Immature Granulocyte (auto (jesus t code = Absolute Immature Granulocyte (auto) 0.02 0-0.1 [facility] HospitalUrine color rwgxriczhnipv6929-78-62 07:34:00* Test Item Value Reference Range Interpretation Comments Urine Color (test code = 5778-6) YELLOW YELLOW [facility] HospitalUrine wvzvxtg3559-13-58 07:34:00* Test Item Value Reference Range Interpretation Comments Urine Clarity (test code = 05290-4) CLEAR CLEAR [facility] gravity of Urine by Test strip 2019-12-04 07:34:00* Test Item Value Reference Range Interpretation Comments Urine Specific [place] (test code = 5811-5) 1.020 1.010-1.02 5 [facility] HospitalUrine pH measurement by automated test imrpg0859-43-44 07:34:00* Test Item Value Reference Range Interpretation Comments Urine pH (test code = 53500-8) 6 5-7 [facility] HospitalUrine leukocyte esterase detection by khmdftxd3121-97-23 07:34:00* Test Item Value Reference Range Interpretation Comments Urine Leukocyte Esterase (test code = 5799-2) NEGATIVE NEGATIVE [facility] HospitalUrine nitrite wqnkagvxz3741-19-83 07:34:00* Test Item Value Reference Range Interpretation Comments Urine Nitrite (test code = 42431-7) NEGATIVE NEGATIVE [facility] HospitalUrine protein measurement by test strip (mass/volume)2019-12-04 07:34:00* Test Item Value Reference Range Interpretation Comments Urine Protein (test code = 5804-0) NEGATIVE NEGATIVE [facility] HospitalUrine glucose rypbfyamp8148-00-09 07:34:00* Test Item Value Reference Range Interpretation Comments Urine Glucose (UA) (test code = 2349-9) NEGATIVE NEGATIVE [facility] HospitalUrine ketones detection by automated test miwnj1749-92-31 07:34:00* Test Item Value Reference Range Interpretation Comments Urine Ketones (test code = 54712-8) NEGATIVE NEGATIVE [facility] HospitalUrine urobilinogen measurement by test strip (mass/volume)2019-12-04 07:34:00* Test Item Value Reference Range Interpretation Comments Urine Urobilinogen (test code = 99194-6) 0.2 0.2-1 [facility] HospitalUrine total bilirubin measurement (mass/volume)2019-12-04 07:34:00* Test Item Value Reference Range Interpretation Comments Urine Bilirubin (test code = 1978-6) NEGATIVE NEGATIVE [facility] HospitalUrine erythrocytes dklufzoad8725-88-15 07:34:00* Test Item Value Reference Range Interpretation Comments Urine Blood (test code = 60770-6) NEGATIVE NEGATIVE [facility] HospitalAutomated urine sediment leukocyte count by microscopy (number/high power field)2019-12-04 07:34:00* Test Item Value Reference Range Interpretation Comments Urine WBC (test code = 5821-4) 0-5 0-5 [facility] HospitalErythrocytes detection in urine sediment by light jxbwwzyefg0006-33-50 07:34:00* Test Item Value Reference Range Interpretation Comments Urine RBC (test code = 60166-7) NONE 0-5 [facility] HospitalBacteria detection in urine sediment by light ibnhoqbmor1313-47-41 07:34:00* Test Item Value Reference Range Interpretation Comments Urine Bacteria (test code = 11594-8) FEW NONE [facility] HospitalEpithelial cells detection in urine sediment by light eqwuzjafnf8100-83-32 07:34:00* Test Item Value Reference Range Interpretation Comments Urine Epithelial Cells (test code = 95280-6) FEW NONE [facility] sodium measurement (moles/volume)2019-12-04 07:34:00* Test Item Value Reference Range Interpretation Comments Sodium Level (test code = 2951-2) 140 136-145 [facility] potassium measurement (moles/volume)2019-12-04 07:34:00* Test Item Value Reference Range Interpretation Comments Potassium Level (test code = 2823-3) 4.0 3.5-5.1 [facility] chloride measurement (moles/volume)2019-12-04 07:34:00* Test Item Value Reference Range Interpretation Comments Chloride Level (test code = 2075-0) 106 98-107 [facility] carbon dioxide, total measurement (moles/volume)2019-12-04 07:34:00* Test Item Value Reference Range Interpretation Comments Carbon Dioxide Level (test code = 2028-9) 27 22-29 [facility] anion rmb1770-07-96 07:34:00* Test Item Value Reference Range Interpretation Comments Anion Gap (test code = 50187-5) 11.0 8-16 [facility] urea nitrogen measurement (mass/volume)2019-12-04 07:34:00* Test Item Value Reference Range Interpretation Comments Blood Urea Nitrogen (test code = 3094-0) 19 7-26 [facility] creatinine measurement (mass/volume)2019-12-04 07:34:00* Test Item Value Reference Range Interpretation Comments Creatinine (test code = 2160-0) 0.71 0.57-1.11 [facility] urea nitrogen/creatinine mass hptgt6574-78-80 07:34:00* Test Item Value Reference Range Interpretation Comments BUN/Creatinine Ratio (test code = 3097-3) 27 6-25 [facility] HospitalEstimated glomerular filtration rate (GFR) jjzlqgcqctfbh9606-04-53 07:34:00* Test Item Value Reference Range Interpretation Comments Estimat Glomerular Filtration Rate (test code = 452815199) > 60 >60 Ranges were taken from the National Kidney Disease Education Program and the [facility] literature.Reference ranges:60 or greater: Bnpcls23-39 ( for 3 consecutive months): Chronic kidney disease 15 or less: Kidney failureMethodist Southlake HospitalGlucose bfiuszelnen5765-23-05 07:34:00* Test Item Value Reference Range Interpretation Comments Glucose Level (test code = YNI1559) 92 74-118 [facility] calcium measurement (mass/volume)2019-12-04 07:34:00* Test Item Value Reference Range Interpretation Comments Calcium Level (test code = 59684-9) 9.3 8.4-10.2 [facility] total bilirubin measurement (mass/volume)2019-12-04 07:34:00* Test Item Value Reference Range Interpretation Comments Total Bilirubin (test code = 1975-2) 0.3 0.2-1.2 [facility] HospitalFluoroscopic procedure less than one hour fdbvdbdf9862-20-90 07:34:00* Test Item Value Reference Range Interpretation Comments Aspartate Amino Transf (AST/SGOT) (test code = Aspartate Amino Transf (AST/SGOT)) 52 5-34 [facility] alanine aminotransferase measurement (enzymatic activity/volume)2019-12-04 07:34:00* Test Item Value Reference Range Interpretation Comments Alanine Aminotransferase (ALT/SGPT) (test code = 1742-6) 80 0-55 [facility] protein measurement (mass/volume)2019-12-04 07:34:00* Test Item Value Reference Range Interpretation Comments Total Protein (test code = 2885-2) 7.3 6.5-8.1 [facility] plasma albumin measurement (mass/volume)2019-12-04 07:34:00* Test Item Value Reference Range Interpretation Comments Albumin (test code = 1751-7) 3.3 3.5-5.0 [facility] HospitalPlasma globulin measurement (mass/volume) 2019-12-04 07:34:00* Test Item Value Reference Range Interpretation Comments Globulin (test code = 00016-3) 4.0 2.3-3.5 [facility] albumin/globulin mass xolbq9301-93-79 07:34:00* Test Item Value Reference Range Interpretation Comments Albumin/Globulin Ratio (test code = 1759-0) 0.8 0.8-2.0 [facility] alkaline phosphatase measurement (enzymatic activity/volume)2019-12-04 07:34:00* Test Item Value Reference Range Interpretation Comments Alkaline Phosphatase (test code = 6768-6) 83 40-150 [facility]CR [facility]M BILATERAL EREN CAD DIGITAL 2019-09-19 13:10:29 - SCR MAMM BILATERAL EREN CAD DIGITALBILATERAL DIGITAL SCREENING MAMMOGRAM 3D/2D WITH CAD: 09/19/2019CLINICAL: Asymptomatic. Digital breast tomosynthesis was performed in addition to routine CC and MLO views. Current mammographic images were evaluated by either a [employer] M-Vu or a [employer] Image[employer]er CAD (computer aided detection system). Comparison is made to exams dated 01/06/2018 mammogram and 08/31/2013 mammogram - [facility]-. There are scattered fibroglandular tissues in both breasts. No suspicious mass, architectural distortion, malignant type calcification, or lymph node abnormality detected. Breast architecture is stable compared to prior exams.IMPRESSION: NEGATIVEThere is no mammographic evidence of malignancy. Resume annual screening mammography in one year. Cooper Carter M.D. ss/penrad:09/19/2019 13:10:29 Standards Engineer: Loreto De La Fuente , [facility]-letter sent: BIRADS 1-2 Normal Mammogram BI-RADS: 1 NegativeTissue Lbac5360-65-13 15:06:00* Test Item Value Reference Range Interpretation Comments Case Report (test code = 104) Surgical Pathology Repor t Case: [id number] Authorizing Provider: Fareed Vang MD Collected: 07/11/2019 0947 Ordering Location: [facility] Received: 07/11/2019 1249 SERVICES Pathologist: James Davalos MD Specimens: A) - Thyroid, Right B) - Thyroid, Left DIAGNOSIS (test code = 3220) [file] xQKc8FABCGSRXOXN7KIGGoLWJLWWTNFXObDZ8UPIbNNW7BZVsjLS3rPBCELrvkJGFcPXxTQB9OO6BWGJ GJYWrWVWWUXOMLLbQwUS9yIYmUKPYNG5lKZItJM6ROFJeINaAuLXRronSEOK4LMO0EKMESKRbUOfIODc ZIC3vTBuZGXsHXS1QhNKUGOoIRVptSSD9qqMXbLSLZ HQSCBAyBUx3BMPSQCBMRFLJVT5aCImNYVdIIO9WgIHWLRyFAFeoTWF9pzPXbBFUABbvKD6WWUA0RVutX ZmMwSORTWP1JE0QVHDUAWLBWBcEWQD0QTn4haRQvKEHKZ6SlF5tJR3PRCczDVHWLK49yUEfLMXPHBWoN EH4HANVrTGFnGmtFVA0lQ2LBCQRQEg2VYOxJYEBYHJ 4KVO2heETgOROrbzYVOOSQXZDxOPQXQCAFT1KYZC8JUTSTBHGTSGLsUFqLLSaYQMuGE3dIYNFZX24PTL n1AmKxK6NSHHCtByzmFYUlAGwETi3UREITYCFEF9BFNVKKQ81TIfaSBJ8BSPeXJ2NEYEPSPZ7PB1mRPv NAGGEXGnUBKQ6JLmddHPFnGeBTXDVSDcErTl6NSQ7Q DChZQcKOE1htXWHxgk47KQT6CjZny5D6RGW6RFNjHCMqz2xxGUQuzTRnOjKiDaOwLpGkIiukhSWxENSh BaXaw5uxi508jPGla1ctHFUoAxO2vLZqDOKlxUNaN317OGVtWMmjq6teu8UiISHobDTol1T3CMIKqcqg nBd3xPykU98yl8M2KmosX6gyFCGtYZRjP8SzIS0qYK MhOwn0RLQ8LCJ1FPNbOYRoN0NdMC8tSWIbzEJmOXy6o1uynNncINFgZSH9s0akENamigItJI1jpd5kkJ b6r5vrszXuKOTiNIYfpZQNNXBgP5VndCrtJh3udEu9tOlzOdfpCKY4Cmv2BD7ezh27smv0zGemGREohv uyPsX9XLzgEVZbvylbABg5CRiqWSHcyDY1PPDfiONq B6CcXMVcEI1clrz4XYM9BQtsWCDyWkQ6ELLggWDkNXXnpLwpDPfhm021HRT1HqGzXO1pD3Mxv2J5hJ1k pFYxYYRaeOCaDjMxHSWwmr9gqKYkWVzin3YfGTB1jmW9aIJiuFKjCQCnPxR7PMphJA7bwz53NFJeRCD5 cj4tzDKdsCjxfdKfgCPkSZvpE7DuAAFfu482NKXdX4 IfGKRui0V0qgCgBpKnSJNraAI8upL9ONOqLY5lpaici7hqVStiMYlcLXMekwC9aqW7NVOllPLcF9LkbR 5cOZIyWR4yhifpp9ofUTI1ZCdhRLJaJRL6SiJbYJCwc9Xxbzv0DfHen8PlvPNxFFbjN41yx964FMGwms YsP9oonIMthypfaGOplxbbSUajgcU4MXVfGYoowtqi UDGnAYjvX6yhIlIfIMEuzGqdXVbqm4AoVDEjOGZyZeVpmXEbPIWeZuy8VAGhaDFuPAQnOyEaF1xvbpsw WuEBSGLgy0muE2edcQIBjVZfR6ZwVKddxjXbTMwhCJrtPCO8ERO9Km69CtX4NJMina61 SYNOPTIC REPORT (test code = 71) THYROID [...] pNX CPT Code(s) (test code = 3357) f5eldGGrVMCuvZFqNfYiXFFrKQNxu7rtVTXrgFGsWsAqOnYkXtLnFzytjECmPGXpJpEuj6vkq718aUTl w4jmGIAdCpK1lWFmPVGuhQOoN566p3nug2opsrReiZF3NOMaVJL8XCypigSqhiZ9NBkgcYPjKiQ9GUev tsXtBZeuryAqltHhOml0ZPPmM709QDY5eFqvi7shZL R0LNSxWUIeOeRiBx7mwLVeW993FLFyWOAYLYFkpRm8KMZwusVealWdfYFMv718X326w8bxNKPhhkVroR nWytmlr0ucX312UCUfaZXrfsKdNrHtKJTfsTFssXQ2EYJgJW5wbvjbUxZfQO6jmirjAdNcKO9fnun4Tf WsEL3atatfQjTsABnaXWRpkfbnGBKob4CasqkiVP1v O0Ikb6X6hL2toSTvHKFkfHCeAiNuOUKbdc0ijUPyJFzec4UaOKL9wiR1kFFudXNoKVGvRA45Henwn8Ln XnkpJTH3LWGgfjGdi5Dlk9zaMtWxmxToX4uoT6NuAHVyWFDgIUZhHkMonfKfq1Pgt2DaaEXkvBg1s9ov KGFkUZTzwQsge5yqJJI1EWBeA2N3cNOpj1liBJkeYX NzjST3ohvgJJkoEAEquoP1muleSTbpBWRukWZ9nyvmAEqoTYItUnC4ezmmLGagRLCeTIW4EVzrr644NU Q9DYokTeffNZerSQSwjqPdapQlvUyuUYAiIXElRZqlNUAvHVecUFWcWRPkCuLbpBcloDrvkB2eNwNaCu GbWKvwQN6mAJEmH1xanUGqZRViHVEvJ2klTlYsyG2ycSzdDOzrazIlVOw0XrG3JINvmTWuzF== CLINICAL HISTORY (test code = 3356) y6mrdVFmZMIorZUeSbQyJUUyBVRyj9ouKTYysZKoHdPpLcUsXjDtRhadrNPxMFDyVsHkg0ihk811xMAx z0muPQLkEbQ5xLVjWEYnjAUlY941t6kmc5ikotMfsAU2IHVlMJG7DRvqqrRdabH3MGdjtKKhNiX5ALrp xxHdQAxqibCngoJsGka1CSQwY266GYC1uZqdm3poEF G0KNBkVQGeUiUpTy4tnRKiJ286SOXfIDTVWYSobHt0RQSdnlUrkjHusXVEu187E044w4rmZTQhhsMziG nLujiwu5cyI552UIFdjFKqfvVtXsPpWJGfiEPzeKR4AXOyKW6pvknfVyCiNV6vhznjOsAsFW2dsgg5Pm HrVN9kexzoJbJjBUcvKELsyuueNRHnb9XzxnioNX2z C6Fie0X7iB1feYYbWASfiAOuGnSmZYFvow3hbXHqKGvlj4WlLRJ0zqU3jOKnlWIyJDWbRV12Ecyvc5Qy QxtuNVM9BJHsvzEcn2Yff8dhGkAlavFkQ4syU2QjHCFqOWQtJUGkLzVcjhAvu3Yey6FcfVYmnDu0g1yk YPJeXPJpiSxrk8yiHCI1WEVuS9Z5gQDvj9jxUKpnSA QbdYU4pcwzOEdpRMPiepX6nrisIVrfWXKjyPS9adwmFLfvMOJkObD8hiehSZiqGBElRYK8BSjbo535OE L3BQocIkjqGVemTUDunuScsuDjmUktTENtRUBzSPqtIBNbNUejNGPxVTTuJoLlzFoxxYcwnG5eJhRsWb DrKSznDR7dPZLeU0weqAWcKZQqLZNlF7hxDiTyqP7s cOrsPBczknVkLA4hxQnztcMjxNJhNX2zhNWdzDQdEoG0kZwkp7ykFFtsKV0bICAdai2= SPECIMEN SOURCE (test code = 3377) e7jwvMIcFBZbjXYzEzFuKVYjJYUzh7ztOEHmdQVuDlSrRkCvCuCmLcviiHZaRTXuDaLjx0peh092cCHw g2koBHLzObL2fWBrEGYmlLAkO900j9pta8gghbCseGI9EGUfFUK3TOlaneTfjcZ0RBdjcMWoVyW9VXen vcRcJNkxjjSmxiYkRfx2FLBqB003XQN8gGzhe3uuNN O3LGCcXTTnZcLiXh7enWTgM041PEZwOROJMXZgeUy9GQYbhhWitvVmmVYRi430G313g1iuJQGmahLtcG pNeamtp5vtS438FVHmzHShoeScUdMcKBEpyVLbxWJ6MMGnRI2szgysXdJgMG4fsuaiEwKeCM9vtoq0Hu GoZV8gatbdSeYjIYknOGCmaermJYNaq3ApbeyeGP6h B3Uwf4X3rU9afRIrHVHdoNPoPeImGGIths0zrBCjFDccl9WsOOB7ejK2nVIqbSZpFPSzOZ38Mqnsh6Of WmqnZMF4ALBoqcIuq8Ugc4epXeExfgUsL3tjF2NhSDMrTTJcBHXxCzKhboReb2Szd6SuaFTqpPy3p5vi XYHlECQmgCrwe2hzMNH1FOIaZ9D1sHGwy5lzKPzwHJ RygWL2ujniBJhoVIQtipG9lfktSMmfSVIraVT6mwmmEYpeEMKkIvK3toetJGvnXNSkLOE1WFnfz803HT X8ACokAsntYVpmANWgkjAjqzEptSjfQZWjWONzAMkeVUBjRNsyHMJgCNEdMdLwbOnawLgneO7rKhIhZf OwHAzfAC1yQZGyI5ktlKPlWYChQGJnG6nrWoNbmY2y yXahOJbenuUnYVEoWLGVL9qDFRuFLxIoV3DwWUwGDl2BHYviAm2kNDGBYMHOH5CYJP9TCINZAWCVHCXu XHBhcn0= GROSS DESCRIPTION (test code = 3366) [file] CBBmDResGWRuRSKdBlVswGAlWlNaJwOfmGwvbCtzXRriYcTeSDSeUWbcW4diElQsToZcHUyiFHM6 MICROSCOPIC DESCRIPTION (test code = 3371) v6feyPSfXCAlcDEmKsHuCXHwJOZkr7dmBCOhuXWyIzByJtArHoBoFeiaoPMfBZRfGvGwy0plu513aKZy o3laQONrIjW0aXUiUHIhuXZaZ513u0bry2ddtwAumHJ7VWVxSNV5FZevluUhxpM3FWyevTOrIxT3AYao njJpNAtgolYedrBlYjb8YOExN722MNV9gUbfg5ofNS K6ITChWVStMcJyHp8fpAKjX582ZVTwDFZKYMDukVx7PLHmcdKduyJjcIOJl558B257i0yuSZZwziSlvS oJscxxy3neO924VEZsmYUjxdJaPyDdFUXegFHahUA9JBHgFF6mngiaSsNgZU0yhlnvVdTlLC8utwx8Vg SbNG8drodaCgHfXAxaABWjdhdeVPOdz8BzutupIS7w R1Lwo7Y2oR2stGAuXAVbfLRjOmSdMOTobi2slOFyVPyck0GfFJD2gcX4pXJrfRSvLEEeST71Ouniy6Jk GoevQXP5YLBbtvVik5Gjn9waPiIrnyGzQ1ubZ4GuNIGvPCOxHPInZpQrkuQhb8Apd4GduSBzwNy6x6bd STOkIZUgpJbgk9kfOCM8XCXgL7I6yFTdt1nhRDxiGG SorYH2fopfJOlaXPPqlyC4pjmnWQaaRGHvyKG9bejzJOebXNSdYeR9bbddQDatALZzRDR4MVgbl715YW B1HKwfUhybCOjjPLGnkzAndpCiuEixCFSsWMIxTVtcDZQmLIgyOKNuRZJqOiAlwCqwdOpizD9tCtXqOu JzLEbhZL8zKICrT8nslUZiDKCsVFMwQ6agDtEpmQ0huXeeQQeyfxBzUSTkepKfpr6aKI4pfSWvzY== Gross assessment was performed at (test code = 2777) [facility], Department of Pathology, [address] [place] [address], Technical component was performed at (test code = 2778 ) [facility], Department of Pathology, [address] [place] [id number], Professional component was performed at (test code = 2 779) [facility], Department of Pathology, [address] [place], [place] [address], [facility] [id number] 15:06:00Surgical Pathology Report Case: [id number] Authorizing Provider: Fareed Vang MD Collected: 07/11/2019 0947 Ordering Location: [facility] Received: 07/11/2019 1249 SERVICES Pathologist: James Davalos MD Specimens: A) - Thyroid, Right B) - Thyroid, Left PART A RIGHT LOBE OF THYROID, JED THYROIDECTOMY (6.0 GRAMS):PAPILLARY THYROID CARCINOMA, CLASSIC MORPHOLOGY, 1.0 C M.THE NEOPLASM IS PRESENT IN THE RIGHT LOWER LOBE.LYMPHOVASCULAR INVASION IS NOT IDENTIFIED.EXTRATHYROIDAL EXTENSION IS NOT IDENTIFIED.SURGICAL MARGINS ARE NEGA TIVE FOR TUMOR.AJCC CLASSIFICATION (8TH EDITION) [id number]. SEE SYNOPTIC REPORT.P ART B LEFT LOBE OF THYROID, HEMITHYROIDECTOMY (6.0 GRAMS):THYROID WITHOUT SIGNIF ICANT HISTOPATHOLOGIC ALTERATION.NEGATIVE FOR MALIGNANCY. Signing Pathologi st Direct Phone Line: [phone] signed by James Davalos MD on 07/17/2019 [...] : pT1a Regional Lymph Nodes (pN): pNX [id number] neoplasm of thyroi d glandA. RIGHT LOBE [...] cut surface is red and finely granular. [facility] sections to include the entire nodule are submitted as follows;Section code:A5-N6-deimpt nodule, lower poleA3-uninvolved thyroid, upper poleA4-uninvolved thyroid, [...] nodule are submitted as follows;Section cod e:B1-upper [id number]-nsq ygitF4-M8-axetd polePA/ewPerformed.[facility], Department of Pathology, [address] [place] [address], T el [phone], Department of Pathology, [address] [place] [address], [facility], Department of [facility], [address] [place] [address], Tel [id number] 12:50:00* Test Item Value Reference Range Interpretation Comments Calcium (test code = 50361-7) 9.9 mg/dL 8.4-10.2 Lab Interpretation (test code = 29490-9) [facility] 12:[facility]* Test Item Value Reference Range Interpretation Comments CALCIUM (BEAKER) (test code = 697) 9.9 mg/dL 8.4-10.2 Calcium, [id number] 08:49:00* Test Item Value Reference Range Interpretation Comments Calcium, Ion (test code = 1994-3) 1.19 mmol/L 1.12-1.27 pH, Blood (test code = 90232-4) 7.37 [facility], [id number] 08:49:00* Test Item Value Reference Range Interpretation Comments CALCIUM IONIZED (BEAKER) (test code = 698) 1.19 mmol/L 1.12-1.27 PH, BLOOD (BEAKER) (test code = 1810) 7.37 CALCIUM, [id number] 22:57:00* Test Item Value Reference Range Interpretation Comments CALCIUM IONIZED (BEAKER) (test code = 698) 1.12 mmol/L 1.12-1.27 PH, BLOOD (BEAKER) (test code = 1810) 7.38 PTH, [id number] 11:55:00* Test Item Value Reference Range Interpretation Comments PTH (test code = 2731-8) 64.0 pg/mL 8.5-72.5 Lab Interpretation (test code = 49449-3) [facility] [place] HLNBBB0446-72-31 11:55:00* Test Item Value Reference Range Interpretation Comments PARATHYROID HORMONE INTACT (BEAKER) (test code = 577) 64.0 pg/mL 8.5-72.5 CALCIUM, JJGVEYU4146-98-67 11:35:00* Test Item Value Reference Range Interpretation Comments CALCIUM IONIZED (BEAKER) (test code = 698) 1.08 mmol/L 1.12-1.27 L PH, BLOOD (BEAKER) (test code = 1810) 7.36 Prothrombin time/GKB0497-30-80 17:30:00* Test Item Value Reference Range Interpretation [...] heart valves. Lab Interpretation (test code = 90274-9) [facility]/QCV6458-23-32 17:30:00* Test Item Value Reference Range Interpretation Comments PROTIME (BEAKER) (test code = 759) 13.1 seconds 11.9-14.2 INR (BEAKER) (test code = 370) 1.0 <=5.9 RECOMMENDED COUMADIN/WARFARIN INR THERAPY RANGESSTANDARD DOSE: 2.0 - 3.0 Inclu lilibeth: PROPHYLAXIS for venous thrombosis, systemic embolization; TREATMENT for leatha ous thrombosis and/or pulmonary embolus.HIGH RISK: Target INR is 2.5-3.5 for pat ients with mechanical heart valves.Fsnsyegnzl8591-42-89 17:21:00* Test Item Value Reference Range Interpretation Comments Hemoglobin (test code = 786-4) 13.2 11.2- 15.7 GM/DL Lab Interpretation (test code = 67058-1) [facility] qvwcc9918-66-12 17:21:00* Test Item Value Reference Range Interpretation Comments Platelets (test code = 777-3) 204 150- 450 K/CU MM Lab Interpretation (test code = 10987-1) [facility] [place]MOGLOBIN2019-11-20 17:21:00* Test Item Value Reference Range Interpretation Comments HEMOGLOBIN (BEAKER) (test code = 410) 13.2 GM/DL 11.2-15.7 PLATELET WADGU2535-96-22 17:21:00* Test Item Value Reference Range Interpretation Comments PLATELET COUNT (BEAKER) (test code = 756) 204 K/CU MM 150-450 BONE and/or JOINT WHOLE QIVN3002-34-12 21:25:00 [place] [address] Patient Name: SASHA POPE MR #: [id number] : 1965 Age/Sex: 54/F Req #: [id number] [facility] Physician: Ordered by: STEPHANE DUNLAP M.D. Report #: [id number] Location: [place] Room/Bed: Procedure: 1104-0 004 NM/BONE [...] COPY TO: STEPHANE DUNLAP M.D. Creatine Kinase XO5011-62-06 07:17:00* Test Item Value Reference Range Interpretation Comments Creatine Kinase MB (test code = 67984-8) 1.20 0-5.0 [facility] W5592-71-68 07:17:00* Test Item Value Reference Range Interpretation Comments Troponin I (test code = MND5606) < 0.001 0-0.300 [facility] HospitalCreatine Kinase SI3005-55-08 07:17:00* Test Item Value Reference Range Interpretation Comments Creatine Kinase MB (test code = 20132-1) 1.20 0-5.0 [facility] HospitalTroponin L0757-44-26 07:17:00* Test Item Value Reference Range Interpretation Comments Troponin I (test code = 88112-8) < 0.001 0-0.300 [facility] HospitalCreatine Ibmvrr9626-28-09 07:08:00* Test Item Value Reference Range Interpretation Comments Creatine Kinase (test code = 2157-6) 49 29-168 [facility] HospitalCreatine Gvrauu1080-69-57 07:08:00* Test Item Value Reference Range Interpretation Comments Creatine Kinase (test code = 2157-6) 49 29-168 [facility] Aagpr2934-26-67 06:25:00* Test Item Value Reference Range Interpretation Comments Sodium Level (test code = 2951-2) 138 136-145 [facility] HospitalPotassium Hrwtc0304-60-85 06:25:00* Test Item Value Reference Range Interpretation Comments Potassium Level (test code = 2823-3) 4.2 3.5-5.1 [facility] HospitalChloride Kbrpp5537-29-62 06:25:00* Test Item Value Reference Range Interpretation Comments Chloride Level (test code = 2075-0) 104 98-107 [facility] HospitalCarbon Dioxide Npzvs5115-17-66 06:25:00* Test Item Value Reference Range Interpretation Comments Carbon Dioxide Level (test code = 2028-9) 25 22-29 [facility] HospitalAnion Vqn1964 06:25:00* Test Item Value Reference Range Interpretation Comments Anion Gap (test code = 94286-7) 13.2 8-16 [facility] HospitalBlood Urea Vmjtkxbd0724-43-00 06:25:00* Test Item Value Reference Range Interpretation Comments Blood Urea Nitrogen (test code = 3094-0) 14 7-26 [facility] HospitalCreatinine2019-10-07 06:25:00* Test Item Value Reference Range Interpretation Comments Creatinine (test code = 2160-0) 0.76 0.57-1.11 [facility] HospitalBUN/Creatinine Drmxw4937-34-21 06:25:00* Test Item Value Reference Range Interpretation Comments BUN/Creatinine Ratio (test code = 3097-3) 18 6-25 [facility] HospitalEstimat Glomerular Filtration Rate 2019-05-22 06:25:00* Test Item Value Reference Range Interpretation Comments Estimat Glomerular Filtration Rate (test code = 336534045) > 60 >60 Ranges were taken from the National Kidney Disease Education Program and the [facility] literature.Reference ranges:60 or greater: Dwyobx69-47 ( for 3 consecutive months): Chronic kidney disease 15 or less: Kidney failureMethodist Southlake HospitalGlucose Hicxr7533-54-76 06:25:00* Test Item Value Reference Range Interpretation Comments Glucose Level (test code = QHP3380) 93 74-118 [facility] HospitalCalcium Vlnqa6036-43-00 06:25:00* Test Item Value Reference Range Interpretation Comments Calcium Level (test code = 73260-8) 9.2 8.4-10.2 [facility] HospitalTotal Dfhyxtvcn3736-88-19 06:25:00* Test Item Value Reference Range Interpretation Comments Total Bilirubin (test code = 1975-2) 0.2 0.2-1.2 [facility] HospitalAspartate Amino Transf (AST/SGOT) 2019-05-22 06:25:00* Test Item Value Reference Range Interpretation Comments Aspartate Amino Transf (AST/SGOT) (test code = Aspartate Amino Transf (AST/SGOT)) 53 5-34 H [facility] HospitalAlanine Aminotransferase (ALT/SGPT) 2019-05-22 06:25:00* Test Item Value Reference Range Interpretation Comments Alanine Aminotransferase (ALT/SGPT) (test code = 1742-6) 65 0-55 H [facility] HospitalTotal Indfebj7036-08-07 06:25:00* Test Item Value Reference Range Interpretation Comments Total Protein (test code = 2885-2) 7.2 6.5-8.1 [facility] HospitalAlbumin2019-10-07 06:25:00* Test Item Value Reference Range Interpretation Comments Albumin (test code = 1751-7) 3.2 3.5-5.0 L [facility] HospitalGlobulin2019-10-07 06:25:00* Test Item Value Reference Range Interpretation Comments Globulin (test code = 43269-7) 4.0 2.3-3.5 H [facility] HospitalAlbumin/Globulin Roakq3298-35-60 06:25:00 * Test Item Value Reference Range Interpretation Comments Albumin/Globulin Ratio (test code = 1759-0) 0.8 0.8-2.0 [facility] HospitalAlkaline Yaqwsrazfvk8875-54-28 06:25:00* Test Item Value Reference Range Interpretation Comments Alkaline Phosphatase (test code = 6768-6) 79 40-150 [facility] HospitalWhite Blood Swdfa8237-95-05 06:09:00* Test Item Value Reference Range Interpretation Comments White Blood Count (test code = 6690-2) 6.07 4.8-10.8 [facility] HospitalRed Blood Lukek4890-72-22 06:09:00* Test Item Value Reference Range Interpretation Comments Red Blood Count (test code = 789-8) 4.26 3.6-5.1 [facility] HospitalHemoglobin2019-10-07 06:09:00* Test Item Value Reference Range Interpretation Comments Hemoglobin (test code = 47447-1) 12.4 12.0-16.0 [facility] HospitalHematocrit2019-10-07 06:09:00* Test Item Value Reference Range Interpretation Comments Hematocrit (test code = 4544-3) 37.5 34.2-44.1 [facility] HospitalMean Corpuscular Rwdidd1795-58-09 06:09:00* Test Item Value Reference Range Interpretation Comments Mean Corpuscular Volume (test code = 787-2) 88.0 81-99 [facility] HospitalMean Corpuscular Irmivsqsnb9677-21-14 06:09:00* Test Item Value Reference Range Interpretation Comments Mean Corpuscular Hemoglobin (test code = 785-6) 29.1 28-32 [facility] HospitalMean Corpuscular Hemoglobin Concent 2019-05-22 06:09:00* Test Item Value Reference Range Interpretation Comments Mean Corpuscular Hemoglobin Concent (test code = 786-4) 33.1 31-35 [facility] HospitalRed Cell Distribution Ggalh3272-59-36 06:09:00* Test Item Value Reference Range Interpretation Comments Red Cell Distribution Width (test code = 98163-5) 13.6 11.7 -14.4 [facility] HospitalPlatelet Axlgt8860-99-20 06:09:00* Test Item Value Reference Range Interpretation Comments Platelet Count (test code = 777-3) 182 140-360 [facility] HospitalNeutrophils (%) (Auto)2019-05-22 06:09:00 * Test Item Value Reference Range Interpretation Comments Neutrophils (%) (Auto) (test code = 83855-1) 49.6 38.7-80.0 [facility] HospitalLymphocytes (%) (Auto)2019-05-22 06:09:00 * Test Item Value Reference Range Interpretation Comments Lymphocytes (%) (Auto) (test code = 736-9) 37.9 18.0-39.1 [facility] HospitalMonocytes (%) (Auto)2019-05-22 06:09:00* Test Item Value Reference Range Interpretation Comments Monocytes (%) (Auto) (test code = 5905-5) 6.9 4.4-11.3 [facility] HospitalEosinophils (%) (Auto)2019-05-22 06:09:00 * Test Item Value Reference Range Interpretation Comments Eosinophils (%) (Auto) (test code = 713-8) 5.1 0.0-6.0 [facility] HospitalBasophils (%) (Auto)2019-05-22 06:09:00* Test Item Value Reference Range Interpretation Comments Basophils (%) (Auto) (test code = 706-2) 0.3 0.0-1.0 [facility] HospitalIM GRANULOCYTES %2019-05-22 06:09:00* Test Item Value Reference Range Interpretation Comments IM GRANULOCYTES % (test code = IM GRANULOCYTES %) 0.2 0.0- 1.0 [facility] HospitalNeutrophils # (Auto)2019-05-22 06:09:00* Test Item Value Reference Range Interpretation Comments Neutrophils # (Auto) (test code = 751-8) 3.0 2.1-6.9 [facility] HospitalLymphocytes # (Auto)2019-05-22 06:09:00* Test Item Value Reference Range Interpretation Comments Lymphocytes # (Auto) (test code = 71613-9) 2.3 1.0-3.2 [facility] HospitalMonocytes # (Auto)2019-05-22 06:09:00* Test Item Value Reference Range Interpretation Comments Monocytes # (Auto) (test code = 742-7) 0.4 0.2-0.8 [facility] HospitalEosinophils # (Auto)2019-05-22 06:09:00* Test Item Value Reference Range Interpretation Comments Eosinophils # (Auto) (test code = 711-2) 0.3 0.0-0.4 [facility] HospitalBasophils # (Auto)2019-05-22 06:09:00* Test Item Value Reference Range Interpretation Comments Basophils # (Auto) (test code = 704-7) 0.0 0.0-0.1 [facility] HospitalAbsolute Immature Granulocyte (auto 2019-05-22 06:09:00* Test Item Value Reference Range Interpretation Comments Absolute Immature Granulocyte (auto (jesus t code = Absolute Immature Granulocyte (auto) 0.01 0-0.1 [facility]um or plasma creatine kinase measurement (enzymatic activity/volume)2019-05-22 05:00:00* Test Item Value Reference Range Interpretation Comments Creatine Kinase (test code = 2157-6) 49 29-168 [facility] Texaserum or plasma creatine kinase MB measurement (mass/volume)2019-05-22 05:00:00* Test Item Value Reference Range Interpretation Comments Creatine Kinase MB (test code = 21620-2) 1.20 0-5.0 [facility] HospitalTroponin I measurement by highly sensitive enzyme xcsxksnpzrj6774-62-36 05:00:00* Test Item Value Reference Range Interpretation Comments Troponin I (test code = 93976-6) < 0.001 0-0.300 [facility] Texaserum or plasma creatine kinase measurement (enzymatic activity/volume)2019-05-22 05:00:00* Test Item Value Reference Range Interpretation Comments Creatine Kinase (test code = 2157-6) 49 29-168 [facility] Texaserum or plasma creatine kinase MB measurement (mass/volume)2019-05-22 05:00:00* Test Item Value Reference Range Interpretation Comments Creatine Kinase MB (test code = 17244-3) 1.20 0-5.0 [facility] HospitalTroponin I measurement by highly sensitive enzyme btuinryecfg7476-37-42 05:00:00* Test Item Value Reference Range Interpretation Comments Troponin I (test code = 88894-0) < 0.001 0-0.300 [facility] HospitalLDL Fyooekaomyw0118-95-77 16:49:00* Test Item Value Reference Range Interpretation Comments LDL Cholesterol (test code = 2089-1) 118 60-130 [facility] Duzgralkqdv0450-16-05 16:49:00* Test Item Value Reference Range Interpretation Comments HDL Cholesterol (test code = 2085-9) 47 40-60 [facility] HospitalCholesterol/HDL Vzjrt8530-21-94 16:49:00 * Test Item Value Reference Range Interpretation Comments Cholesterol/HDL Ratio (test code = 9830-1) 4.3 3.0-3.6 H [facility] HospitalLDL Fvqzrblpxpd6585-55-50 16:49:00* Test Item Value Reference Range Interpretation Comments LDL Cholesterol (test code = 2089-1) 118 60-130 [facility]L Uerudtvffaf2858-99-41 16:49:00* Test Item Value Reference Range Interpretation Comments HDL Cholesterol (test code = 2085-9) 47 40-60 [facility] HospitalCholesterol/HDL Tosdu4475-86-59 16:49:00 * Test Item Value Reference Range Interpretation Comments Cholesterol/HDL Ratio (test code = 9830-1) 4.3 3.0-3.6 H [facility] HospitalB-Type Natriuretic Gitejjp3274-89-51 14:05:00* Test Item Value Reference Range Interpretation Comments B-Type Natriuretic Peptide (test code = 73996-2) 41.4 0-100 [facility] HospitalThyroid Stimulating Hormone (TSH) 2019-05-21 14:05:00* Test Item Value Reference Range Interpretation Comments Thyroid Stimulating Hormone (TSH) (test code = 63464-5) 3.405 0.350-4.940 [facility] HospitalB-Type Natriuretic Iczvymn3214-08-64 14:05:00* Test Item Value Reference Range Interpretation Comments B-Type Natriuretic Peptide (test code = 96273-5) 41.4 0-100 [facility] HospitalThyroid Stimulating Hormone (TSH) 2019-05-21 14:05:00* Test Item Value Reference Range Interpretation Comments Thyroid Stimulating Hormone (TSH) (test code = 72224-9) 3.405 0.350-4.940 [facility] Texastress Test - Treadmill WJAH2593-43-47 13:30:00 [place] [address] Patient Name : SASHA POPE MR #: [id number] : 1965 Age/Sex: 54/F Adm Physician : CIRO HERNANDEZ MD Admit Date : 05/20/19 Location : MED/SURG2 Room/Bed : [facility] REPORT: EXERCISE STRESS TEST DATE OF STUDY: [...] length. Questions are answered. MD CARRIE Cruz/RACHELL /[id number] Signature Date Dictated By: OTTO STACY MD Transcribed By: RACHELL on 07/24/19 < Electronically signed by OTTO STACY MD><<Signature on File>>07/28/19 1216 COPY TO: Triglycerides Prske4469-59-56 12:37:00* Test Item Value Reference Range Interpretation Comments Triglycerides Level (test code = 2571-8) 195 0-149 H [facility] HospitalCholesterol Btrwg6534-28-86 12:37:00* Test Item Value Reference Range Interpretation Comments Cholesterol Level (test code = 2093-3) 204 0-199 H Less than 200 mg/dL Low Mkqm899 - 239 mg/dL Borderline Ikng976 m g/dl and greater High Risk [facility] HospitalTriglycerides Qpdmx2820-60-77 12:37:00* Test Item Value Reference Range Interpretation Comments Triglycerides Level (test code = 2571-8) 195 0-149 H [facility] HospitalCholesterol Knaai8857-43-27 12:37:00* Test Item Value Reference Range Interpretation Comments Cholesterol Level (test code = 2093-3) 204 0-199 H Less than 200 mg/dL Low Gntr070 - 239 mg/dL Borderline Kgqk809 m g/dl and greater High Risk [facility]erum or plasma triglyceride measurement (mass/volume)2019-05-21 09:08:00* Test Item Value Reference Range Interpretation Comments Triglycerides Level (test code = 2571-8) 195 0-149 [facility] Texaserum or plasma cholesterol measurement (mass/volume)2019-05-21 09:08:00* Test Item Value Reference Range Interpretation Comments Cholesterol Level (test code = 2093-3) 204 0-199 Less than 200 mg/dL Low Sjnc903 - 239 mg/dL Borderline Yvtk050 m g/dl and greater High Risk [facility]um or plasma cholesterol in LDL measurement (mass/volume) 2019-05-21 09:08:00* Test Item Value Reference Range Interpretation Comments LDL Cholesterol (test code = 2089-1) 118 60-130 [facility]erum or plasma cholesterol in HDL measurement (mass/volume)2019-05-21 09:08:00* Test Item Value Reference Range Interpretation Comments HDL Cholesterol (test code = 2085-9) 47 40-60 [facility]erum or plasma total cholesterol/cholesterol in HDL mass yruyj4783-10-67 09:08:00* Test Item Value Reference Range Interpretation Comments Cholesterol/HDL Ratio (test code = 9830-1) 4.3 3.0-3.6 [facility] HospitalBNP Msy-xFbc7287-70-06 09:08:00* Test Item Value Reference Range Interpretation Comments B-Type Natriuretic Peptide (test code = 69771-4) 41.4 0-100 [facility]erum or plasma thyrotropin measurement by detection limit <= 0.005 miu/l (units/volume)2019-05-21 09:08:00* Test Item Value Reference Range Interpretation Comments Thyroid Stimulating Hormone (TSH) (test code = 83442-3) 3.405 0.350-4.940 [facility]erum or plasma triglyceride measurement (mass/volume)2019-05-21 09:08:00* Test Item Value Reference Range Interpretation Comments Triglycerides Level (test code = 2571-8) 195 0-149 [facility]erum or plasma cholesterol measurement (mass/volume)2019-05-21 09:08:00* Test Item Value Reference Range Interpretation Comments Cholesterol Level (test code = 2093-3) 204 0-199 Less than 200 mg/dL Low Zvzv740 - 239 mg/dL Borderline Gvtx377 m g/dl and greater High Risk [facility]um or plasma cholesterol in LDL measurement (mass/volume) 2019-05-21 09:08:00* Test Item Value Reference Range Interpretation Comments LDL Cholesterol (test code = 2089-1) 118 60-130 [facility]erum or plasma cholesterol in HDL measurement (mass/volume)2019-05-21 09:08:00* Test Item Value Reference Range Interpretation Comments HDL Cholesterol (test code = 2085-9) 47 40-60 [facility]um or plasma total cholesterol/cholesterol in HDL mass cfflk0292-44-40 09:08:00* Test Item Value Reference Range Interpretation Comments Cholesterol/HDL Ratio (test code = 9830-1) 4.3 3.0-3.6 [facility] HospitalBNP Lky-sPxj3201-82-06 09:08:00* Test Item Value Reference Range Interpretation Comments B-Type Natriuretic Peptide (test code = 83099-0) 41.4 0-100 [facility]erum or plasma thyrotropin measurement by detection limit <= 0.005 miu/l (units/volume)2019-05-21 09:08:00* Test Item Value Reference Range Interpretation Comments Thyroid Stimulating Hormone (TSH) (test code = 00293-2) 3.405 0.350-4.940 [facility] HospitalCT CHEST WITH MWSUZVNN-IGSH5513-81-05 19:19:00 [place] [address] Patient Name: SASHA POPE MR #: [id number] : 1965 Age/Sex: 54/F Req #: [id number] Adm Physician: Ordered by: MARIA ISABEL ARIAS DO Report #: [id number] Location: [facility] Room/Bed: Procedure: 1005-000 7 HOPD/CT [...] ISABEL ARIAS DO Urinalysis with Culture, if eziahxshh6919-03-14 00:48:50* Test Item Value Reference Range Interpretation [...] created by rule GL_SJM_UA_MICRO_IND CT Chest w/ Jdxxkyxq4382-06-57 00:21:51Patient: SASHA POPE Date/Time04/26/2019 23:21 CDTReason for ExamDyspneaReportLOCATION: T80SHKLONL: 54-year-old female, complains of dyspneaCOMMENT:Axial CT imaging [...] LSigned (Electronic Signature): 04/27/2019 0:21 amComprehensive Metabolic Tddyk6803-84-22 00:05:26* Test Item Value Reference Range Interpretation [...] A/G Ratio) 1.1 ratio N Comprehensive Metabolic Ejyic6161-74-55 00:05:26* Test Item Value Reference Range Interpretation [...] is not provided, and the patient is -[place]ene[place], multiply by 1.212. If sex is not [...] is not provided, and the patient is -[place], multiply by 1.212. If sex is not [...] the National Kidney Foundation, http://nkdep.nih.gov Comprehensive Metabolic Wxxtk1581-75-21 00:05:26* Test Item Value Reference Range Interpretation [...] is not provided, and the patient is -[place], multiply by 1.212. If sex is not [...] is not provided, and the patient is -[place], multiply by 1.212. If sex is not [...] Kidney Foundation, http://nkdep.nih.gov CT Spine Thoracic w/ Ezbenbma8292-36-16 23:56:08Patient: SASHA POPE Date/Time04/26/2019 23:21 CDTReason for ExamRule out mets;Back painReportLOCATION: M09XEOGNDH: 54-year-old female presents with back pain. Clinical [...] Signature): 04/26/2019 11:56 pmCT Spine Lumbar w/ Nvisbabk1303-01-96 23:56:08Patient: SASHA POPE Date/Time04/26/2019 23:21 CDTReason for ExamRule out at mets;Back painReportLOCATION: D60AHXPNAZ: 54-year-old female presents with back pain. Clinical [...] Signature): 04/26/2019 11:56 pm Prothrombin Time and RWU9953-16-27 23:34:42* Test Item Value Reference Range Interpretation Comments Prothrombin Time (test code = Prothrombin Time) 11.7 seconds 9.8-13 .4 INR (test code = INR) 1.0 ratio 0.6-1.2 Partial Thromboplastin Cspj1947-09-69 23:34:42* Test Item Value Reference Range Interpretation Comments Partial Thromboplastin Time (test code = Partial Throm boplastin Time) 31.30 seconds 24.39-37.25 Comprehensive Metabolic Rbjxu8797-17-98 22:45:31* Test Item Value Reference Range Interpretation [...] A/G Ratio) 1.1 ratio N Comprehensive Metabolic Mirbi5273-47-50 22:45:31* Test Item Value Reference Range Interpretation [...] is not provided, and the patient is -[place]ene[place], multiply by 1.212. If sex is not [...] the National Kidney Foundation, http://nkdep.nih.gov Comprehensive Metabolic Dybag7788-84-36 22:45:31* Test Item Value Reference Range Interpretation Comments Sodium Level (test code = Sodium Level) 136.0 mmol/L 135.0-145.0 Potassium Level (test code = Potassium Level) see comment mmol/L 3. 5-5.1 N K=5.0AST=62Specimen slightly hemolyzed; K and AST may be falsely elevated. Suggest verify by recollect.alessanrda ler Chloride Level (test code = Chloride [...] is not provided, and the patient is -[place]enegr[place], multiply by 1.212. If sex is not [...] is not provided, and the patient is -[place]ene[place], multiply by 1.212. If sex is not [...] Kidney Foundation, http://nkdep.nih.gov Complete Blood Count with Jmyslovbvyvc5237-11-80 22:18:35* Test Item Value Reference Range Interpretation [...] code = IPF) 0 % N Automated Xkiqdyxykslk5743-21-40 22:18:35* Test Item Value Reference Range Interpretation Comments Neutro Auto (test code = Neutro Auto) 58.5 % 36.0-70.0 Lymph Auto (test code = Lymph Auto) 32.2 % 12.0-44.0 Labette Auto (test code = Labette Auto) 5.7 % 0.0-11.0 Eos, Auto (test code = Eos, Auto) 2.9 % 0.0-7.0 Basophil Auto (test code = Basophil Auto) 0.5 % 0.0-2.0 Neutro Absolute (test code = Neutro Absolute) 5.0 x10 1.6-7.4 Lymph Absolute (test code = Lymph Absolute) 2.76 x10 .50-4.60 Labette Absolute (test code = Labette Absolute) .49 x10 .00-1.20 Eos Absolute (test code = Eos Absolute) 0.25 x10 0.00-0.74 Baso Absolute (test code = Baso Absolute) 0.04 x10 0.00-0.21 IG Jtpty5474-79-08 22:18:35* Test Item Value Reference Range Interpretation Comments IG (test code = IG) 0.2 % 0.0-5.0 IG Abs (test code = IG Abs) 0 x10 N XR Chest 2 Mpcgx2133-30-78 20:50:04Patient: SASHA POPE Date/Time04/26/2019 20:43 CDTReason for ExamShortness of breathReportHISTORY: Shortness of breathLocation code: V76FGDN: 2 VIEW CHEST X-RAY.COMPARISON: NoneCOMMENT: PA and lateral views are provided. No acute infiltrate or effusion is seen. Cardiomediastinal silhouette is within normal limits. No acute bony abnormalities.IMPRESSION: No acute disease. Final Dictated by: MD Umana Roman PDictated DT/TM: 04/26/2019 8:49 pmSigned by: MD Umana Roman PSigned (Electronic Signature): 04/26/2019 8:50 pmCT ABD/PEL WO OWEPLMXP-XNLW0741-74-08 13:27:00 [place] [address] Patient Name: SASHA POPE MR #: [id number] : Age/Sex: 54/F Req #: [id number] Adm Physician: Ordered by: DYLAN ARTIS MD Report #: [id number] Location: [facility] Room/Bed: Procedure: 0908- 0004 HOPD/CT ABD/PEL WO [...] 1:34 PM Dictated By: ISHMAEL KATHLEEN MD 33 Transcribed By: GARO on 04/23/194 COPY TO: DYLAN ARTIS MD Creatine Kinase VI9486-69-03 05:43:00* Test Item Value Reference Range Interpretation Comments Creatine Kinase MB (test code = 74429-4) 1.30 0-5.0 [facility] R2645-37-66 05:43:00* Test Item Value Reference Range Interpretation Comments Troponin I (test code = USX9091) < 0.001 0-0.300 [facility] HospitalCreatine Kinase SW5472-53-89 05:43:00* Test Item Value Reference Range Interpretation Comments Creatine Kinase MB (test code = 38418-0) 1.30 0-5.0 [facility] HospitalTroponin V4537-33-56 05:43:00* Test Item Value Reference Range Interpretation Comments Troponin I (test code = IEB7899) < 0.001 0-0.300 [facility] Zbhgj6221-28-64 05:36:00* Test Item Value Reference Range Interpretation Comments Sodium Level (test code = 2951-2) 138 136-145 [facility] HospitalPotassium Lbshz4428-91-46 05:36:00* Test Item Value Reference Range Interpretation Comments Potassium Level (test code = 2823-3) 4.0 3.5-5.1 [facility] HospitalChloride Tgytl7274-83-50 05:36:00* Test Item Value Reference Range Interpretation Comments Chloride Level (test code = 2075-0) 104 98-107 [facility] HospitalCarbon Dioxide Ytbcs4726-96-85 05:36:00* Test Item Value Reference Range Interpretation Comments Carbon Dioxide Level (test code = 2028-9) 25 22-29 [facility] HospitalAnion Seo8102-64-70 05:36:00* Test Item Value Reference Range Interpretation Comments Anion Gap (test code = 88458-0) 13.0 8-16 [facility] HospitalBlood Urea Sjbsqrmi3454-91-00 05:36:00* Test Item Value Reference Range Interpretation Comments Blood Urea Nitrogen (test code = 3094-0) 16 7-26 [facility] HospitalCreatinine2019-07-10 05:36:00* Test Item Value Reference Range Interpretation Comments Creatinine (test code = 2160-0) 0.73 0.57-1.11 [facility] HospitalBUN/Creatinine Vwuzg6541-61-05 05:36:00* Test Item Value Reference Range Interpretation Comments BUN/Creatinine Ratio (test code = 3097-3) 22 6- [facility] HospitalEstimat Glomerular Filtration Rate 2019-02-22 05:36:00* Test Item Value Reference Range Interpretation Comments Estimat Glomerular Filtration Rate (test code = 520573920) > 60 >60 Ranges were taken from the National Kidney Disease Education Program and the [facility] [employer] literature.Reference ranges:60 or greater: Cpjexc80-79 ( for 3 consecutive months): Chronic kidney disease 15 or less: Kidney failureMethodist Southlake HospitalGlucose Slbze2392-14-36 05:36:00* Test Item Value Reference Range Interpretation Comments Glucose Level (test code = OKY4487) 99 74-118 [facility] HospitalCalcium Zcgtm8250-39-79 05:36:00* Test Item Value Reference Range Interpretation Comments Calcium Level (test code = 69548-8) 9.5 8.4-10.2 [facility] HospitalTotal Xtnwmfvpn1874-82-90 05:36:00* Test Item Value Reference Range Interpretation Comments Total Bilirubin (test code = 1975-2) 0.4 0.2-1.2 [facility] HospitalAspartate Amino Transf (AST/SGOT) 2019-02-22 05:36:00* Test Item Value Reference Range Interpretation Comments Aspartate Amino Transf (AST/SGOT) (test code = Aspartate Amino Transf (AST/SGOT)) 46 5-34 H [facility] HospitalAlanine Aminotransferase (ALT/SGPT) 2019-02-22 05:36:00* Test Item Value Reference Range Interpretation Comments Alanine Aminotransferase (ALT/SGPT) (test code = 1742-6) 61 0-55 H [facility] HospitalTotal Jnepahv4784-89-93 05:36:00* Test Item Value Reference Range Interpretation Comments Total Protein (test code = 2885-2) 8.0 6.5-8.1 [facility] HospitalAlbumin2019-07-10 05:36:00* Test Item Value Reference Range Interpretation Comments Albumin (test code = 1751-7) 3.6 3.5-5.0 [facility] HospitalGlobulin2019-07-10 05:36:00* Test Item Value Reference Range Interpretation Comments Globulin (test code = 08727-7) 4.4 2.3-3.5 H [facility] HospitalAlbumin/Globulin Tplto6780-59-14 05:36:00 * Test Item Value Reference Range Interpretation Comments Albumin/Globulin Ratio (test code = 1759-0) 0.8 0.8-2.0 [facility] HospitalAlkaline Mrsmvbvapmv8226-34-91 05:36:00* Test Item Value Reference Range Interpretation Comments Alkaline Phosphatase (test code = 6768-6) 97 40-150 [facility] HospitalCreatine Geuwuj9584-90-98 05:36:00* Test Item Value Reference Range Interpretation Comments Creatine Kinase (test code = 2157-6) 80 29-168 [facility] Zijye7292-80-14 05:36:00* Test Item Value Reference Range Interpretation Comments Sodium Level (test code = 2951-2) 138 136-145 [facility] HospitalPotassium Gypgk7500-09-22 05:36:00* Test Item Value Reference Range Interpretation Comments Potassium Level (test code = 2823-3) 4.0 3.5-5.1 [facility] HospitalChloride Teonp8497-22-34 05:36:00* Test Item Value Reference Range Interpretation Comments Chloride Level (test code = 2075-0) 104 98-107 [facility] HospitalCarbon Dioxide Zphlb6104-97-83 05:36:00* Test Item Value Reference Range Interpretation Comments Carbon Dioxide Level (test code = 2028-9) 25 22-29 [facility] HospitalAnion Cwt0809-43-38 05:36:00* Test Item Value Reference Range Interpretation Comments Anion Gap (test code = 04840-9) 13.0 8-16 [facility] HospitalBlood Urea Qhxbmrab4339-10-86 05:36:00* Test Item Value Reference Range Interpretation Comments Blood Urea Nitrogen (test code = 3094-0) 16 7-26 [facility] HospitalCreatinine2019-07-10 05:36:00* Test Item Value Reference Range Interpretation Comments Creatinine (test code = 2160-0) 0.73 0.57-1.11 [facility] HospitalBUN/Creatinine Vbjip8801-75-72 05:36:00* Test Item Value Reference Range Interpretation Comments BUN/Creatinine Ratio (test code = 3097-3) 22 6-25 [facility] HospitalEstimat Glomerular Filtration Rate 2019-02-22 05:36:00* Test Item Value Reference Range Interpretation Comments Estimat Glomerular Filtration Rate (test code = 306164891) > 60 >60 Ranges were taken from the National Kidney Disease Education Program and the [facility] literature.Reference ranges:60 or greater: Sbjpac41-03 ( for 3 consecutive months): Chronic kidney disease 15 or less: Kidney failureMethodist Southlake HospitalGlucose Vulbs6362-42-71 05:36:00* Test Item Value Reference Range Interpretation Comments Glucose Level (test code = OWA6643) 99 74-118 [facility] HospitalCalcium Ozicu1664-36-66 05:36:00* Test Item Value Reference Range Interpretation Comments Calcium Level (test code = 49461-7) 9.5 8.4-10.2 [facility] HospitalTotal Gxkbnifjx0638-29-59 05:36:00* Test Item Value Reference Range Interpretation Comments Total Bilirubin (test code = 1975-2) 0.4 0.2-1.2 [facility] HospitalAspartate Amino Transf (AST/SGOT) 2019-02-22 05:36:00* Test Item Value Reference Range Interpretation Comments Aspartate Amino Transf (AST/SGOT) (test code = Aspartate Amino Transf (AST/SGOT)) 46 5-34 H [facility] HospitalAlanine Aminotransferase (ALT/SGPT) 2019-02-22 05:36:00* Test Item Value Reference Range Interpretation Comments Alanine Aminotransferase (ALT/SGPT) (test code = 1742-6) 61 0-55 H [facility] Xmyewil7677-84-07 05:36:00* Test Item Value Reference Range Interpretation Comments Total Protein (test code = 2885-2) 8.0 6.5-8.1 [facility] HospitalAlbumin2019-07-10 05:36:00* Test Item Value Reference Range Interpretation Comments Albumin (test code = 1751-7) 3.6 3.5-5.0 [facility] HospitalGlobulin2019-07-10 05:36:00* Test Item Value Reference Range Interpretation Comments Globulin (test code = 20486-1) 4.4 2.3-3.5 H [facility] HospitalAlbumin/Globulin Fvdpd6997-58-71 05:36:00 * Test Item Value Reference Range Interpretation Comments Albumin/Globulin Ratio (test code = 1759-0) 0.8 0.8-2.0 [facility] HospitalAlkaline Gnhndpiqbmp9375-07-27 05:36:00* Test Item Value Reference Range Interpretation Comments Alkaline Phosphatase (test code = 6768-6) 97 40-150 [facility] HospitalCreatine Faybyn6638-41-87 05:36:00* Test Item Value Reference Range Interpretation Comments Creatine Kinase (test code = 2157-6) 80 29-168 [facility] SINGLE (PORTABLE)2019-02-22 05:32:00 [facility] [address] [address] Patient Name: SASHA POPE MR #: [id number] : 1965 Age/Sex: 54/F Req #: [id number] Adm Physician: Ordered by: ANN CHADWICK MD Report #: [id number] Location: ER Room/Bed: Procedure: [id number] DX/CHEST SINGLE (PORTABLE) Exam Date: 02/22/19 Exam [...] COPY TO: JAYY CHADWICK MD White Blood Dtdeb8357-73-08 05:24:00* Test Item Value Reference Range Interpretation Comments White Blood Count (test code = 6690-2) 6.24 4.8-10.8 [facility] HospitalRed Blood Fbwps8402-99-81 05:24:00* Test Item Value Reference Range Interpretation Comments Red Blood Count (test code = 789-8) 4.42 3.6-5.1 [facility] HospitalHemoglobin2019-07-10 05:24:00* Test Item Value Reference Range Interpretation Comments Hemoglobin (test code = 78451-1) 12.9 12.0-16.0 [facility] HospitalHematocrit2019-07-10 05:24:00* Test Item Value Reference Range Interpretation Comments Hematocrit (test code = 4544-3) 39.2 34.2-44.1 [facility] HospitalMean Corpuscular Fmbqxv4283-96-26 05:24:00* Test Item Value Reference Range Interpretation Comments Mean Corpuscular Volume (test code = 787-2) 88.7 81-99 [facility] HospitalMean Corpuscular Oujdrjdidx7564-12-99 05:24:00* Test Item Value Reference Range Interpretation Comments Mean Corpuscular Hemoglobin (test code = 785-6) 29.2 28-32 [facility] Concent 2019-02-22 05:24:00* Test Item Value Reference Range Interpretation Comments Mean Corpuscular Hemoglobin Concent (test code = 786-4) 32.9 31-35 [facility] HospitalRed Cell Distribution Vaphp0501-39-77 05:24:00* Test Item Value Reference Range Interpretation Comments Red Cell Distribution Width (test code = 46923-6) 13.8 11.7 -14.4 [facility] HospitalPlatelet Manfe5495-56-71 05:24:00* Test Item Value Reference Range Interpretation Comments Platelet Count (test code = 777-3) 202 140-360 [facility] HospitalNeutrophils (%) (Auto)2019-02-22 05:24:00 * Test Item Value Reference Range Interpretation Comments Neutrophils (%) (Auto) (test code = 11813-6) 47.3 38.7-80.0 [facility] HospitalLymphocytes (%) (Auto)2019-02-22 05:24:00 * Test Item Value Reference Range Interpretation Comments Lymphocytes (%) (Auto) (test code = 736-9) 40.9 18.0-39.1 H [facility] HospitalMonocytes (%) (Auto)2019-02-22 05:24:00* Test Item Value Reference Range Interpretation Comments Monocytes (%) (Auto) (test code = 5905-5) 7.2 4.4-11.3 [facility] HospitalEosinophils (%) (Auto)2019-02-22 05:24:00 * Test Item Value Reference Range Interpretation Comments Eosinophils (%) (Auto) (test code = 713-8) 3.8 0.0-6.0 [facility] HospitalBasophils (%) (Auto)2019-02-22 05:24:00* Test Item Value Reference Range Interpretation Comments Basophils (%) (Auto) (test code = 706-2) 0.5 0.0-1.0 [facility] HospitalIM GRANULOCYTES %2019-02-22 05:24:00* Test Item Value Reference Range Interpretation Comments IM GRANULOCYTES % (test code = IM GRANULOCYTES %) 0.3 0.0- 1.0 [facility] HospitalNeutrophils # (Auto)2019-02-22 05:24:00* Test Item Value Reference Range Interpretation Comments Neutrophils # (Auto) (test code = 751-8) 3.0 2.1-6.9 [facility] HospitalLymphocytes # (Auto)2019-02-22 05:24:00* Test Item Value Reference Range Interpretation Comments Lymphocytes # (Auto) (test code = 30511-3) 2.6 1.0-3.2 [facility] HospitalMonocytes # (Auto)2019-02-22 05:24:00* Test Item Value Reference Range Interpretation Comments Monocytes # (Auto) (test code = 742-7) 0.5 0.2-0.8 [facility] HospitalEosinophils # (Auto)2019-02-22 05:24:00* Test Item Value Reference Range Interpretation Comments Eosinophils # (Auto) (test code = 711-2) 0.2 0.0-0.4 [facility] HospitalBasophils # (Auto)2019-02-22 05:24:00* Test Item Value Reference Range Interpretation Comments Basophils # (Auto) (test code = 704-7) 0.0 0.0-0.1 [facility] HospitalAbsolute Immature Granulocyte (auto 2019-02-22 05:24:00* Test Item Value Reference Range Interpretation Comments Absolute Immature Granulocyte (auto (jesus t code = Absolute Immature Granulocyte (auto) 0.02 0-0.1 [facility] HospitalProthrombin Jgxx6502-46-29 05:24:00* Test Item Value Reference Range Interpretation Comments Prothrombin Time (test code = 5902-2) 12.9 11.9-14.5 [facility] HospitalProthromb Time International Ratio 2019-02-22 05:24:00* Test Item Value Reference Range Interpretation Comments Prothromb Time International Ratio (test code = 6301-6) 0.92 Oral Anticoagulant Therapy INR Values:1. Low Intensity Therapy 1.5 - 2.02 . Moderate Intensity Therapy 2.0 - 3.03. High Intensity Therapy(1) 2.5 - 3. 54. High Intensity Therapy(2) 3.0 - 4.05. Panic Value INR > 5.0 [facility] HospitalActivated Partial Thromboplast Time 2019-02-22 05:24:00* Test Item Value Reference Range Interpretation Comments Activated Partial Thromboplast Time (test code = 67998-9) 26.1 23.8-35.5 [facility] HospitalWhite Blood Rdfls4930-84-37 05:24:00* Test Item Value Reference Range Interpretation Comments White Blood Count (test code = 6690-2) 6.24 4.8-10.8 [facility] HospitalRed Blood Pzfgj0133-34-05 05:24:00* Test Item Value Reference Range Interpretation Comments Red Blood Count (test code = 789-8) 4.42 3.6-5.1 [facility] HospitalHemoglobin2019-07-10 05:24:00* Test Item Value Reference Range Interpretation Comments Hemoglobin (test code = 50138-3) 12.9 12.0-16.0 [facility] HospitalHematocrit2019-07-10 05:24:00* Test Item Value Reference Range Interpretation Comments Hematocrit (test code = 4544-3) 39.2 34.2-44.1 [facility] HospitalMean Corpuscular Xmwnig4528-14-63 05:24:00* Test Item Value Reference Range Interpretation Comments Mean Corpuscular Volume (test code = 787-2) 88.7 81-99 [facility] HospitalMean Corpuscular Tkntbmuuvf0444-08-80 05:24:00* Test Item Value Reference Range Interpretation Comments Mean Corpuscular Hemoglobin (test code = 785-6) 29.2 28-32 [facility] HospitalMean Corpuscular Hemoglobin Concent 2019-02-22 05:24:00* Test Item Value Reference Range Interpretation Comments Mean Corpuscular Hemoglobin Concent (test code = 786-4) 32.9 31-35 [facility] HospitalRed Cell Distribution Bltrj5449-69-14 05:24:00* Test Item Value Reference Range Interpretation Comments Red Cell Distribution Width (test code = 84318-1) 13.8 11.7 -14.4 [facility] HospitalPlatelet Bkqin0988-76-46 05:24:00* Test Item Value Reference Range Interpretation Comments Platelet Count (test code = 777-3) 202 140-360 [facility] HospitalNeutrophils (%) (Auto)2019-02-22 05:24:00 * Test Item Value Reference Range Interpretation Comments Neutrophils (%) (Auto) (test code = 59302-9) 47.3 38.7-80.0 [facility] HospitalLymphocytes (%) (Auto)2019-02-22 05:24:00 * Test Item Value Reference Range Interpretation Comments Lymphocytes (%) (Auto) (test code = 736-9) 40.9 18.0-39.1 H [facility] HospitalMonocytes (%) (Auto)2019-02-22 05:24:00* Test Item Value Reference Range Interpretation Comments Monocytes (%) (Auto) (test code = 5905-5) 7.2 4.4-11.3 [facility] HospitalEosinophils (%) (Auto)2019-02-22 05:24:00 * Test Item Value Reference Range Interpretation Comments Eosinophils (%) (Auto) (test code = 713-8) 3.8 0.0-6.0 [facility] HospitalBasophils (%) (Auto)2019-02-22 05:24:00* Test Item Value Reference Range Interpretation Comments Basophils (%) (Auto) (test code = 706-2) 0.5 0.0-1.0 [facility] HospitalIM GRANULOCYTES %2019-02-22 05:24:00* Test Item Value Reference Range Interpretation Comments IM GRANULOCYTES % (test code = IM GRANULOCYTES %) 0.3 0.0- 1.0 [facility] HospitalNeutrophils # (Auto)2019-02-22 05:24:00* Test Item Value Reference Range Interpretation Comments Neutrophils # (Auto) (test code = 751-8) 3.0 2.1-6.9 [facility] HospitalLymphocytes # (Auto)2019-02-22 05:24:00* Test Item Value Reference Range Interpretation Comments Lymphocytes # (Auto) (test code = 81066-7) 2.6 1.0-3.2 [facility] HospitalMonocytes # (Auto)2019-02-22 05:24:00* Test Item Value Reference Range Interpretation Comments Monocytes # (Auto) (test code = 742-7) 0.5 0.2-0.8 [facility] HospitalEosinophils # (Auto)2019-02-22 05:24:00* Test Item Value Reference Range Interpretation Comments Eosinophils # (Auto) (test code = 711-2) 0.2 0.0-0.4 [facility] HospitalBasophils # (Auto)2019-02-22 05:24:00* Test Item Value Reference Range Interpretation Comments Basophils # (Auto) (test code = 704-7) 0.0 0.0-0.1 [facility] HospitalAbsolute Immature Granulocyte (auto 2019-02-22 05:24:00* Test Item Value Reference Range Interpretation Comments Absolute Immature Granulocyte (auto (jesus t code = Absolute Immature Granulocyte (auto) 0.02 0-0.1 [facility] HospitalProthrombin Ztji2946-74-62 05:24:00* Test Item Value Reference Range Interpretation Comments Prothrombin Time (test code = 5902-2) 12.9 11.9-14.5 [facility] HospitalProthromb Time International Ratio 2019-02-22 05:24:00* Test Item Value Reference Range Interpretation Comments Prothromb Time International Ratio (test code = 6301-6) 0.92 Oral Anticoagulant Therapy INR Values:1. Low Intensity Therapy 1.5 - 2.02 . Moderate Intensity Therapy 2.0 - 3.03. High Intensity Therapy(1) 2.5 - 3. 54. High Intensity Therapy(2) 3.0 - 4.05. Panic Value INR > 5.0 [facility] HospitalActivated Partial Thromboplast Time 2019-02-22 05:24:00* Test Item Value Reference Range Interpretation Comments Activated Partial Thromboplast Time (test code = 40343-9) 26.1 23.8-35.5 [facility] HospitalProthrombin Xapw3418-95-69 05:24:00* Test Item Value Reference Range Interpretation Comments Prothrombin Time (test code = 5902-2) 12.9 11.9-14.5 [facility] HospitalProthromb Time International Ratio 2019-02-22 05:24:00* Test Item Value Reference Range Interpretation Comments Prothromb Time International Ratio (test code = 6301-6) 0.92 Oral Anticoagulant Therapy INR Values:1. Low Intensity Therapy 1.5 - 2.02 . Moderate Intensity Therapy 2.0 - 3.03. High Intensity Therapy(1) 2.5 - 3. 54. High Intensity Therapy(2) 3.0 - 4.05. Panic Value INR > 5.0 [facility] HospitalActivated Partial Thromboplast Time 2019-02-22 05:24:00* Test Item Value Reference Range Interpretation Comments Activated Partial Thromboplast Time (test code = 83179-2) 26.1 23.8-35.5 [facility] HospitalProthrombin Ecqg9928-26-22 05:24:00* Test Item Value Reference Range Interpretation Comments Prothrombin Time (test code = 5902-2) 12.9 11.9-14.5 [facility] HospitalProthromb Time International Ratio 2019-02-22 05:24:00* Test Item Value Reference Range Interpretation Comments Prothromb Time International Ratio (test code = 6301-6) 0.92 Oral Anticoagulant Therapy INR Values:1. Low Intensity Therapy 1.5 - 2.02 . Moderate Intensity Therapy 2.0 - 3.03. High Intensity Therapy(1) 2.5 - 3. 54. High Intensity Therapy(2) 3.0 - 4.05. Panic Value INR > 5.0 [facility] HospitalActivated Partial Thromboplast Time 2019-02-22 05:24:00* Test Item Value Reference Range Interpretation Comments Activated Partial Thromboplast Time (test code = 58166-6) 26.1 23.8-35.5 [facility] HEAD/BRAIN W/O XDHJ8248-52-10 08:04:00 Name: SASHA POPE [facility] : 1965 Age/S: 54 / F [address] [facility] Unit #: [id number] Loc: [place] [address] Phys: Bo Meneses MD Acct: [id number] Dis Date: Status: REG ER PHONE #: [phone] Exam Date: 02/08/2019 0801 FAX #: [phone] Reason: headache EXAMS: CPT CODE: [id number] CT HEAD/BRAIN W/O CONT 14603 HISTORY: headache TECHNIQUE: Noncontrast 2.5 mm axial [...] RT(R)(CT) CTDI: DLP: Trnscb Date/Time: 02/08/2019 (803) t.LDP1 Orig Print D/T: S: 02/08/2019 (806) PAGE 1 Signed Report URINALYSIS LJTQPIXV0366-46-08 08:00:00* Test Item Value Reference Range Interpretation [...] FEW #/LPF FEW Urine Source? Clean CatchURINALYSIS BBVGJZXX7697-50-35 07:59:00* Test Item Value Reference Range Interpretation [...] HPF NONE Urine Source? Clean CatchBASIC METABOLIC LROXX2051-31-25 07:43:00* Test Item Value Reference Range Interpretation [...] CA) 9.0 mg/dL 8.5-10.1 N HEPATIC FUNCTION NKOUW5275-68-92 07:43:00* Test Item Value Reference Range Interpretation [...] reference range due to change in reagent. HDNEJP4397-29-37 07:43:00* Test Item Value Reference Range Interpretation Comments LIPASE (test code = LIP) 102 U/L 73.0-393.0 N BASIC METABOLIC OGHTM3874-91-49 07:36:00* Test Item Value Reference Range Interpretation [...] code = CA) mg/dL 8.5-10.1 HEPATIC FUNCTION FDMAZ2505-36-03 07:36:00* Test Item Value Reference Range Interpretation [...] TOTAL (test code = ALKP) IUnit/L 45-117 ISTKNG9116-59-66 07:36:00* Test Item Value Reference Range Interpretation Comments LIPASE (test code = LIP) U/L 73.0-393.0 CBC W/O SEDM8040-68-83 07:13:00* Test Item Value Reference Range Interpretation [...] 6.7-11.0 N - CT ABD PELVIS W/O TDNO8858-94-48 06:42:00 Name: SASHA POPE [facility] : 1965 Age/S: 54 / F [address] [facility] Unit #: [id number] Loc: [place] [address] Phys: Saurabh Muir [employer] Acct: [id number] Dis Date: Status: REG ER PHONE #: [phone] Exam Date: 02/08/2019618 FAX #: [phone] Reason: LEFT SIDED ABD PAIN EXAMS: CPT CODE: [id number] CT ABD PELVIS W/O CONT 97974 CT abdomen and pelvis without IV contrast. [...] may be within tasneem l limits versus eligibility services representative of an ascending urinary tract infection. [...] Sig marly Report (CONTINUED) Name: SASHA POPE [facility] : 1965 Age/S: 54 / F [address] [facility] Unit #: [id number] Loc: [place] [address] Phys: Saurabh Muir [employer] Acct: [id number] Dis Date: Status: REG ER PHONE #: [phone] Exam Date: 02/08/2019618 FAX #: [phone] Reason: LEFT SIDED ABD PAIN EXAMS: CPT CODE: [id number] CT ABD PELVIS W/O CONT 03358 <Continued> with endoscopy to exclude ulcer. 2. Questionable left renal pelvic induration is nonspecific and may be within normal limits versus eligibility services representative of an ascending urinary tract infection. Bladder wall thickening is also seen suggestive of possible cystitis Additional findings as detailed above at 0642 Reported and signed by: Karen Raygoza M.D. CC: Saurabh Muir NP Technologist:JOHN URENA CTDI: DLP: Trnscb Date/Time: 02/08/2019 (641) [email or web address].[email or web address] Orig Print D/T: S: 02/08/2019 (0645) PAGE [address] ABDOMEN/PELVIS [id number] 13:08:00 [address] [address] Patient Name: SASHA POPE MR #: [id number] : 1965 Age/Sex: 53/F Req #: [id number] Adm Physician: Ordered by: MIKALA EVANS MD Report #: [id number] Location: ER Room/Bed: Procedure: 0419- 0014 CT/CT [...] 1:17 PM Dictated By: JOHN CARRASQUILLO MD Transcribed By: GARO on 12/02/187 COPY TO: MIKALA EVANS MD Sodium Nwqxb5705-32-08 11:32:00* Test Item Value Reference Range Interpretation Comments Sodium Level (test code = 2951-2) 140 136-145 [facility] HospitalPotassium Nfird1658-73-98 11:32:00* Test Item Value Reference Range Interpretation Comments Potassium Level (test code = 2823-3) 3.9 3.5-5.1 [facility] HospitalChloride Ajvmz4649-88-60 11:32:00* Test Item Value Reference Range Interpretation Comments Chloride Level (test code = 2075-0) 106 98-107 [facility] HospitalCarbon Dioxide Bpuec5461-98-03 11:32:00* Test Item Value Reference Range Interpretation Comments Carbon Dioxide Level (test code = 2028-9) 24 22-29 [facility] HospitalAnion Xhm2696-78-89 11:32:00* Test Item Value Reference Range Interpretation Comments Anion Gap (test code = 18583-4) 13.9 8-16 [facility] HospitalBlood Urea Rnuxhzmk0729-91-01 11:32:00* Test Item Value Reference Range Interpretation Comments Blood Urea Nitrogen (test code = 3094-0) 15 7-26 [facility] HospitalCreatinine2019-04-19 11:32:00* Test Item Value Reference Range Interpretation Comments Creatinine (test code = 2160-0) 0.78 0.57-1.11 [facility] HospitalBUN/Creatinine Sutsm8631-15-20 11:32:00* Test Item Value Reference Range Interpretation Comments BUN/Creatinine Ratio (test code = 3097-3) 19 6-25 [facility] HospitalEstimat Glomerular Filtration Rate 2018-12-02 11:32:00* Test Item Value Reference Range Interpretation Comments Estimat Glomerular Filtration Rate (test code = 778266480) > 60 >60 Ranges were taken from the National Kidney Disease Education Program and the [facility] literature.Reference ranges:60 or greater: Euwbnv84-16 ( for 3 consecutive months): Chronic kidney disease 15 or less: Kidney failureMethodist Southlake HospitalGlucose Zipue9042-70-09 11:32:00* Test Item Value Reference Range Interpretation Comments Glucose Level (test code = [id number]) 85 74-118 [facility]Calcium Nwaxt3387-18-73 11:32:00* Test Item Value Reference Range Interpretation Comments Calcium Level (test code = 25326-3) 9.7 8.4-10.2 [facility] HospitalTotal Pxbwdbrhk2851-66-52 11:32:00* Test Item Value Reference Range Interpretation Comments Total Bilirubin (test code = 1975-2) 0.4 0.2-1.2 [facility] HospitalAspartate Amino Transf (AST/SGOT) 2018-12-02 11:32:00* Test Item Value Reference Range Interpretation Comments Aspartate Amino Transf (AST/SGOT) (test code = Aspartate Amino Transf (AST/SGOT)) 48 5-34 H [facility] HospitalAlanine Aminotransferase (ALT/SGPT) 2018-12-02 11:32:00* Test Item Value Reference Range Interpretation Comments Alanine Aminotransferase (ALT/SGPT) (test code = 1742-6) 58 0-55 H [facility] HospitalTotal Eeuldmn3545-09-87 11:32:00* Test Item Value Reference Range Interpretation Comments Total Protein (test code = 2885-2) 8.4 6.5-8.1 H [facility] HospitalAlbumin2019-04-19 11:32:00* Test Item Value Reference Range Interpretation Comments Albumin (test code = 1751-7) 3.8 3.5-5.0 [facility] HospitalGlobulin2019-04-19 11:32:00* Test Item Value Reference Range Interpretation Comments Globulin (test code = 05815-2) 4.6 2.3-3.5 H [facility] HospitalAlbumin/Globulin Iubng9430-15-55 11:32:00 * Test Item Value Reference Range Interpretation Comments Albumin/Globulin Ratio (test code = 1759-0) 0.8 0.8-2.0 [facility] HospitalAlkaline Qjalaepgcdz8046-60-22 11:32:00* Test Item Value Reference Range Interpretation Comments Alkaline Phosphatase (test code = 6768-6) 100 40-150 [facility] HospitalCreatine Phfoif2013-28-53 11:32:00* Test Item Value Reference Range Interpretation Comments Creatine Kinase (test code = 2157-6) 110 29-168 [facility] HospitalCreatine Kinase HA5707-35-23 11:32:00* Test Item Value Reference Range Interpretation Comments Creatine Kinase MB (test code = 47311-8) 1.60 0-5.0 [facility] HospitalTroponin C3160-51-68 11:32:00* Test Item Value Reference Range Interpretation Comments Troponin I (test code = QQZ1159) < 0.001 0-0.300 [facility] HospitalLipase2019-04-19 11:32:00* Test Item Value Reference Range Interpretation Comments Lipase (test code = 3040-3) 11 [facility] HospitalLipase2019-04-19 11:32:00* Test Item Value Reference Range Interpretation Comments Lipase (test code = 3040-3) 11 [facility] HospitalLipase2019-04-19 11:32:00* Test Item Value Reference Range Interpretation Comments Lipase (test code = 3040-3) [facility]Lipase2019-04-19 11:32:00* Test Item Value Reference Range Interpretation Comments Lipase (test code = 3040-3) 11 [facility] HospitalUrine OLU9986-66-70 11:21:00* Test Item Value Reference Range Interpretation Comments Urine WBC (test code = 5821-4) NONE 0-5 [facility] HospitalU[facility] BZU1144-57-29 11:21:00* Test Item Value Reference Range Interpretation Comments Urine RBC (test code = 27961-4) NONE 0-5 [facility] HospitalU[facility] Swodcybt5103-86-39 11:21:00* Test Item Value Reference Range Interpretation Comments Urine Bacteria (test code = 84662-9) NONE NONE [facility] HospitalUrine Epithelial Adxjd6719-88-94 11:21:00 * Test Item Value Reference Range Interpretation Comments Urine Epithelial Cells (test code = 12523-4) FEW NONE [facility] WJB1454-74-52 11:21:00* Test Item Value Reference Range Interpretation Comments Urine WBC (test code = 5821-4) NONE 0-5 [facility] COG4163-11-07 11:21:00* Test Item Value Reference Range Interpretation Comments Urine RBC (test code = 82377-0) NONE 0-5 [facility] Npftvlcm2212-27-18 11:21:00* Test Item Value Reference Range Interpretation Comments Urine Bacteria (test code = 56375-0) NONE NONE [facility] Epithelial Hibkc9409-94-41 11:21:00 * Test Item Value Reference Range Interpretation Comments Urine Epithelial Cells (test code = 24560-0) FEW NONE [facility] PUW3198-95-99 11:21:00* Test Item Value Reference Range Interpretation Comments Urine WBC (test code = 5821-4) NONE 0-5 [facility] EFT9056-80-87 11:21:00* Test Item Value Reference Range Interpretation Comments Urine RBC (test code = 76912-2) NONE 0-5 [facility] Erlgapvz4740-42-47 11:21:00* Test Item Value Reference Range Interpretation Comments Urine Bacteria (test code = 09504-0) NONE NONE [facility] Epithelial Bqzuh0300-87-22 11:21:00 * Test Item Value Reference Range Interpretation Comments Urine Epithelial Cells (test code = 62525-2) FEW NONE [facility] THW1282-88-86 11:21:00* Test Item Value Reference Range Interpretation Comments Urine WBC (test code = 5821-4) NONE 0-5 [facility] FKV1445-57-70 11:21:00* Test Item Value Reference Range Interpretation Comments Urine RBC (test code = 59782-9) NONE 0-5 [facility] Odwzrogp5347-24-00 11:21:00* Test Item Value Reference Range Interpretation Comments Urine Bacteria (test code = 68688-0) NONE NONE [facility] Epithelial Gisto1902-14-41 11:21:00 * Test Item Value Reference Range Interpretation Comments Urine Epithelial Cells (test code = 68809-6) FEW NONE [facility] HospitalWhite Blood Vylqh1963-64-32 11:20:00* Test Item Value Reference Range Interpretation Comments White Blood Count (test code = 6690-2) 6.00 4.8-10.8 [facility] HospitalRed Blood Hmezu5735-89-88 11:20:00* Test Item Value Reference Range Interpretation Comments Red Blood Count (test code = 789-8) 4.31 3.6-5.1 [facility] HospitalHemoglobin2019-04-19 11:20:00* Test Item Value Reference Range Interpretation Comments Hemoglobin (test code = 32091-6) 12.4 12.0-16.0 [facility] HospitalHematocrit2019-04-19 11:20:00* Test Item Value Reference Range Interpretation Comments Hematocrit (test code = 4544-3) 38.2 34.2-44.1 [facility] HospitalMean Corpuscular Uowlau8381-58-50 11:20:00* Test Item Value Reference Range Interpretation Comments Mean Corpuscular Volume (test code = 787-2) 88.6 81-99 [facility] HospitalMean Corpuscular Jtbokyztaz2281-67-51 11:20:00* Test Item Value Reference Range Interpretation Comments Mean Corpuscular Hemoglobin (test code = 785-6) 28.8 28-32 [facility] HospitalMean Corpuscular Hemoglobin Concent 2018-12-02 11:20:00* Test Item Value Reference Range Interpretation Comments Mean Corpuscular Hemoglobin Concent (test code = 786-4) 32.5 31-35 [facility] HospitalRed Cell Distribution Kgdze3458-03-50 11:20:00* Test Item Value Reference Range Interpretation Comments Red Cell Distribution Width (test code = 33541-8) 13.4 11.7 -14.4 [facility] HospitalPlatelet Jatqe8185-32-69 11:20:00* Test Item Value Reference Range Interpretation Comments Platelet Count (test code = 777-3) 219 140-360 [facility] HospitalNeutrophils (%) (Auto)2018-12-02 11:20:00 * Test Item Value Reference Range Interpretation Comments Neutrophils (%) (Auto) (test code = 11104-3) 49.7 38.7-80.0 [facility] HospitalLymphocytes (%) (Auto)2018-12-02 11:20:00 * Test Item Value Reference Range Interpretation Comments Lymphocytes (%) (Auto) (test code = 736-9) 39.3 18.0-39.1 H [facility] HospitalMonocytes (%) (Auto)2018-12-02 11:20:00* Test Item Value Reference Range Interpretation Comments Monocytes (%) (Auto) (test code = 5905-5) 5.5 4.4-11.3 [facility] HospitalEosinophils (%) (Auto)2018-12-02 11:20:00 * Test Item Value Reference Range Interpretation Comments Eosinophils (%) (Auto) (test code = 713-8) 4.7 0.0-6.0 [facility] HospitalBasophils (%) (Auto)2018-12-02 11:20:00* Test Item Value Reference Range Interpretation Comments Basophils (%) (Auto) (test code = 706-2) 0.5 0.0-1.0 [facility] HospitalIM GRANULOCYTES %2018-12-02 11:20:00* Test Item Value Reference Range Interpretation Comments IM GRANULOCYTES % (test code = IM GRANULOCYTES %) 0.3 0.0- 1.0 [facility] HospitalNeutrophils # (Auto)2018-12-02 11:20:00* Test Item Value Reference Range Interpretation Comments Neutrophils # (Auto) (test code = 751-8) 3.0 2.1-6.9 [facility] HospitalLymphocytes # (Auto)2018-12-02 11:20:00* Test Item Value Reference Range Interpretation Comments Lymphocytes # (Auto) (test code = 97714-5) 2.4 1.0-3.2 [facility] HospitalMonocytes # (Auto)2018-12-02 11:20:00* Test Item Value Reference Range Interpretation Comments Monocytes # (Auto) (test code = 742-7) 0.3 0.2-0.8 [facility] HospitalEosinophils # (Auto)2018-12-02 11:20:00* Test Item Value Reference Range Interpretation Comments Eosinophils # (Auto) (test code = 711-2) 0.3 0.0-0.4 [facility] HospitalBasophils # (Auto)2018-12-02 11:20:00* Test Item Value Reference Range Interpretation Comments Basophils # (Auto) (test code = 704-7) 0.0 0.0-0.1 [facility] HospitalAbsolute Immature Granulocyte (auto 2018-12-02 11:20:00* Test Item Value Reference Range Interpretation Comments Absolute Immature Granulocyte (auto (jesus t code = Absolute Immature Granulocyte (auto) 0.02 0-0.1 [facility] HospitalUrine Qozbz8552-72-10 11:08:00* Test Item Value Reference Range Interpretation Comments Urine Color (test code = 5778-6) YELLOW YELLOW [facility] HospitalUrine Nonnvfp0873-24-13 11:08:00* Test Item Value Reference Range Interpretation Comments Urine Clarity (test code = 87029-4) SL CLOUDY CLEAR [facility] HospitalUrine Specific Coyujum5070-88-81 11:08:00 * Test Item Value Reference Range Interpretation Comments Urine Specific [place] (test code = 5811-5) 1.005 1.010-1.02 5 L [facility] HospitalUrine bS5035-29-56 11:08:00* Test Item Value Reference Range Interpretation Comments Urine pH (test code = 32027-1) 6 5-7 [facility] HospitalUrine Leukocyte Khrkxfyy7106-77-14 11:08:00* Test Item Value Reference Range Interpretation Comments Urine Leukocyte Esterase (test code = 5799-2) NEGATIVE NEGATIVE [facility] HospitalUrine Hlnsakf8427-80-00 11:08:00* Test Item Value Reference Range Interpretation Comments Urine Nitrite (test code = 57280-0) NEGATIVE NEGATIVE [facility] HospitalUrine Xvahjok4440-84-00 11:08:00* Test Item Value Reference Range Interpretation Comments Urine Protein (test code = 5804-0) 3+ NEGATIVE H [facility] HospitalUrine Glucose (UA)2018-12-02 11:08:00* Test Item Value Reference Range Interpretation Comments Urine Glucose (UA) (test code = 2349-9) NEGATIVE NEGATIVE [facility] HospitalUrine Rfkyktw3723-39-30 11:08:00* Test Item Value Reference Range Interpretation Comments Urine Ketones (test code = 42914-1) NEGATIVE NEGATIVE [facility] Wukdwgtrelmh7803-67-60 11:08:00* Test Item Value Reference Range Interpretation Comments Urine Urobilinogen (test code = 44830-9) 0.2 0.2-1 [facility] Wkflbsuzo1405-81-59 11:08:00* Test Item Value Reference Range Interpretation Comments Urine Bilirubin (test code = 1978-6) NEGATIVE NEGATIVE [facility] Lhxrb6703-15-19 11:08:00* Test Item Value Reference Range Interpretation Comments Urine Blood (test code = 74618-6) NEGATIVE NEGATIVE [facility] HospitalUrine Fjqyt7404-72-85 11:08:00* Test Item Value Reference Range Interpretation Comments Urine Color (test code = 5778-6) YELLOW YELLOW [facility] HospitalUrine Gakxflu8603-09-89 11:08:00* Test Item Value Reference Range Interpretation Comments Urine Clarity (test code = 23119-8) SL CLOUDY CLEAR [facility] HospitalUrine Specific Nzthoyk2427-97-72 11:08:00 * Test Item Value Reference Range Interpretation Comments Urine Specific [place] (test code = 5811-5) 1.005 1.010-1.02 5 L [facility] HospitalUrine fB1495-55-50 11:08:00* Test Item Value Reference Range Interpretation Comments Urine pH (test code = 77032-5) 6 5-7 [facility] HospitalU[facility] Leukocyte Dwyznykx4461-79-04 11:08:00* Test Item Value Reference Range Interpretation Comments Urine Leukocyte Esterase (test code = 5799-2) NEGATIVE NEGATIVE [facility] Urqpumj0276-45-86 11:08:00* Test Item Value Reference Range Interpretation Comments Urine Nitrite (test code = 99434-9) NEGATIVE NEGATIVE [facility] Qqtsvcp0664-41-08 11:08:00* Test Item Value Reference Range Interpretation Comments Urine Protein (test code = 5804-0) 3+ NEGATIVE H [facility] Glucose (UA)2018-12-02 11:08:00* Test Item Value Reference Range Interpretation Comments Urine Glucose (UA) (test code = 2349-9) NEGATIVE NEGATIVE [facility] Rbokqpd5777-73-36 11:08:00* Test Item Value Reference Range Interpretation Comments Urine Ketones (test code = 17670-6) NEGATIVE NEGATIVE [facility] Enoqtrnnoqwf3959-36-20 11:08:00* Test Item Value Reference Range Interpretation Comments Urine Urobilinogen (test code = 08352-7) 0.2 0.2-1 [facility] Sdvwbexgx3281-63-58 11:08:00* Test Item Value Reference Range Interpretation Comments Urine Bilirubin (test code = 1978-6) NEGATIVE NEGATIVE [facility] Qxhlp0667-65-21 11:08:00* Test Item Value Reference Range Interpretation Comments Urine Blood (test code = 63709-8) NEGATIVE NEGATIVE [facility] Tvlme5090-73-08 11:08:00* Test Item Value Reference Range Interpretation Comments Urine Color (test code = 5778-6) YELLOW YELLOW [facility] HospitalUrine Ngmhjci3410-28-83 11:08:00* Test Item Value Reference Range Interpretation Comments Urine Clarity (test code = 24708-2) SL CLOUDY CLEAR [facility] HospitalUrine Specific Coujnzs8640-58-40 11:08:00 * Test Item Value Reference Range Interpretation Comments Urine Specific [place] (test code = 5811-5) 1.005 1.010-1.02 5 L [facility] HospitalUrine gV8289-41-21 11:08:00* Test Item Value Reference Range Interpretation Comments Urine pH (test code = 25756-1) 6 5-7 [facility] Leukocyte Xelbqwww2324-61-71 11:08:00* Test Item Value Reference Range Interpretation Comments Urine Leukocyte Esterase (test code = 5799-2) NEGATIVE NEGATIVE [facility] Zvhbaxo1797-30-81 11:08:00* Test Item Value Reference Range Interpretation Comments Urine Nitrite (test code = 80111-2) NEGATIVE NEGATIVE [facility] Kmqhviz6170-43-93 11:08:00* Test Item Value Reference Range Interpretation Comments Urine Protein (test code = 5804-0) 3+ NEGATIVE H [facility] Glucose (UA)2018-12-02 11:08:00* Test Item Value Reference Range Interpretation Comments Urine Glucose (UA) (test code = 2349-9) NEGATIVE NEGATIVE [facility] Rzhapup9406-82-65 11:08:00* Test Item Value Reference Range Interpretation Comments Urine Ketones (test code = 36747-1) NEGATIVE NEGATIVE [facility] Johrflsljxbq7422-70-24 11:08:00* Test Item Value Reference Range Interpretation Comments Urine Urobilinogen (test code = 87981-1) 0.2 0.2-1 [facility] Jpgaatdzm4086-77-76 11:08:00* Test Item Value Reference Range Interpretation Comments Urine Bilirubin (test code = 1978-6) NEGATIVE NEGATIVE [facility] Cxbbi4309-95-43 11:08:00* Test Item Value Reference Range Interpretation Comments Urine Blood (test code = 54087-7) NEGATIVE NEGATIVE [facility] Jifms4486-84-23 11:08:00* Test Item Value Reference Range Interpretation Comments Urine Color (test code = 5778-6) YELLOW YELLOW [facility] Uyihdcg4326-40-49 11:08:00* Test Item Value Reference Range Interpretation Comments Urine Clarity (test code = 93686-2) SL CLOUDY CLEAR [facility] HospitalUrine Specific Hbmawuy6330-22-81 11:08:00 * Test Item Value Reference Range Interpretation Comments Urine Specific [place] (test code = 5811-5) 1.005 1.010-1.02 5 L [facility] HospitalU[facility] qU4274-97-63 11:08:00* Test Item Value Reference Range Interpretation Comments Urine pH (test code = 63378-9) 6 5-7 [facility] Leukocyte Dsmgmfdl6284-16-66 11:08:00* Test Item Value Reference Range Interpretation Comments Urine Leukocyte Esterase (test code = 5799-2) NEGATIVE NEGATIVE [facility] Nhjudcg7011-83-85 11:08:00* Test Item Value Reference Range Interpretation Comments Urine Nitrite (test code = 20452-1) NEGATIVE NEGATIVE [facility] Wgcoxte1076-93-10 11:08:00* Test Item Value Reference Range Interpretation Comments Urine Protein (test code = 5804-0) 3+ NEGATIVE H [facility] Glucose (UA)2018-12-02 11:08:00* Test Item Value Reference Range Interpretation Comments Urine Glucose (UA) (test code = 2349-9) NEGATIVE NEGATIVE [facility] Xyxqaip7110-04-98 11:08:00* Test Item Value Reference Range Interpretation Comments Urine Ketones (test code = 98243-3) NEGATIVE NEGATIVE [facility] Pqbzbccjyejh8178-80-81 11:08:00* Test Item Value Reference Range Interpretation Comments Urine Urobilinogen (test code = 07593-8) 0.2 0.2-1 [facility] Dpaqfdibi3495-77-50 11:08:00* Test Item Value Reference Range Interpretation Comments Urine Bilirubin (test code = 1978-6) NEGATIVE NEGATIVE [facility] Eszmv3173-87-97 11:08:00* Test Item Value Reference Range Interpretation Comments Urine Blood (test code = 34775-6) NEGATIVE NEGATIVE [facility]ABDOM[facility] (KUB)2018-12-02 10:28:00 [facility] [address] [place] [address] Patient Name: SASHA POPE MR #: [id number] : Age/Sex: 53/F Req #: [id number] Adm Physician: Ordered by: MIKALA EVANS MD Report #: [id number] Location: ER Room/Bed: Procedure: [id number] 0014 DX/ABDOMEN-1VIEW [...] (test code = 2335-8) NEGATIVE NEGATIVE [facility] Occult Nnvwh3007-64-66 07:35:00* Test Item Value Reference Range Interpretation Comments Stool Occult Blood (test code = 2335-8) NEGATIVE NEGATIVE [facility] Occult Vdatn6707-19-03 07:35:00* Test Item Value Reference Range Interpretation Comments Stool Occult Blood (test code = 2335-8) NEGATIVE NEGATIVE [facility] Occult Bhdfj9947-76-44 07:35:00* Test Item Value Reference Range Interpretation Comments Stool Occult Blood (test code = 2335-8) NEGATIVE NEGATIVE [facility] Occult Ruxrx1560-91-28 07:35:00* Test Item Value Reference Range Interpretation Comments Stool Occult Blood (test code = 2335-8) NEGATIVE [facility]GAT[facility] Ofqxx4235-49-88 05:29:00* Test Item Value Reference Range Interpretation Comments Sodium Level (test code = 2951-2) 140 136-145 [facility] HospitalPotassium Icmkj2857-55-58 05:29:00* Test Item Value Reference Range Interpretation Comments Potassium Level (test code = 2823-3) 4.4 3.5-5.1 [facility] HospitalChloride Oeswl4337-66-90 05:29:00* Test Item Value Reference Range Interpretation Comments Chloride Level (test code = 2075-0) 105 98-107 [facility] HospitalCarbon Dioxide Ddrub2271-30-33 05:29:00* Test Item Value Reference Range Interpretation Comments Carbon Dioxide Level (test code = 2028-9) 27 22-29 [facility] HospitalAnion Lpb8333-63-64 05:29:00* Test Item Value Reference Range Interpretation Comments Anion Gap (test code = 51925-4) 12.4 8-16 [facility] HospitalBlood Urea Rhxaauya0653-02-71 05:29:00* Test Item Value Reference Range Interpretation Comments Blood Urea Nitrogen (test code = 3094-0) 10 7-26 [facility] HospitalCreatinine2019-03-10 05:29:00* Test Item Value Reference Range Interpretation Comments Creatinine (test code = 2160-0) 0.81 0.57-1.11 [facility] HospitalBUN/Creatinine Mgehb0655-65-93 05:29:00* Test Item Value Reference Range Interpretation Comments BUN/Creatinine Ratio (test code = 3097-3) 12 6-25 [facility] HospitalEstimat Glomerular Filtration Rate 2018-10-23 05:29:00* Test Item Value Reference Range Interpretation Comments Estimat Glomerular Filtration Rate (test code = 729280911) > 60 >60 Ranges were taken from the National Kidney Disease Education Program and the [facility] literature.Reference ranges:60 or greater: Ddnhrt32-41 ( for 3 consecutive months): Chronic kidney disease 15 or less: Kidney failureMethodist Southlake HospitalGlucose Ztmru9584-53-57 05:29:00* Test Item Value Reference Range Interpretation Comments Glucose Level (test code = DWD3692) 97 74-118 [facility] HospitalCalcium Yrafx2665-52-94 05:29:00* Test Item Value Reference Range Interpretation Comments Calcium Level (test code = 36173-3) 8.9 8.4-10.2 [facility] HospitalTotal Izigkhdhb9343-67-72 05:29:00* Test Item Value Reference Range Interpretation Comments Total Bilirubin (test code = 1975-2) 0.3 0.2-1.2 [facility] HospitalAspartate Amino Transf (AST/SGOT) 2018-10-23 05:29:00* Test Item Value Reference Range Interpretation Comments Aspartate Amino Transf (AST/SGOT) (test code = Aspartate Amino Transf (AST/SGOT)) 35 5-34 H [facility] HospitalAlanine Aminotransferase (ALT/SGPT) 2018-10-23 05:29:00* Test Item Value Reference Range Interpretation Comments Alanine Aminotransferase (ALT/SGPT) (test code = 1742-6) 54 0-55 [facility] HospitalTotal Yvgaldn0670-48-80 05:29:00* Test Item Value Reference Range Interpretation Comments Total Protein (test code = 2885-2) 7.0 6.5-8.1 [facility] HospitalAlbumin2019-03-10 05:29:00* Test Item Value Reference Range Interpretation Comments Albumin (test code = 1751-7) 3.4 3.5-5.0 L [facility] HospitalGlobulin2019-03-10 05:29:00* Test Item Value Reference Range Interpretation Comments Globulin (test code = 98039-8) 3.6 2.3-3.5 H [facility] HospitalAlbumin/Globulin Vrnjv2054-64-37 05:29:00 * Test Item Value Reference Range Interpretation Comments Albumin/Globulin Ratio (test code = 1759-0) 0.9 0.8-2.0 [facility] HospitalAlkaline Ewtkptiwtkv7624-40-06 05:29:00* Test Item Value Reference Range Interpretation Comments Alkaline Phosphatase (test code = 6768-6) 74 40-150 [facility] HospitalWhite Blood Szqsl1492-48-92 05:14:00* Test Item Value Reference Range Interpretation Comments White Blood Count (test code = 6690-2) 6.11 4.8-10.8 [facility] HospitalRed Blood Kkzmi1176-47-66 05:14:00* Test Item Value Reference Range Interpretation Comments Red Blood Count (test code = 789-8) 3.87 3.6-5.1 [facility] 05:14:00* Test Item Value Reference Range Interpretation Comments Hemoglobin (test code = 91119-0) 11.2 12.0-16.0 L [facility] HospitalHematocrit2019-03-10 05:14:00* Test Item Value Reference Range Interpretation Comments Hematocrit (test code = 4544-3) 34.4 34.2-44.1 [facility] HospitalMean Corpuscular Vbvxfs3721-65-42 05:14:00* Test Item Value Reference Range Interpretation Comments Mean Corpuscular Volume (test code = 787-2) 88.9 81-99 [facility]Mean Corpuscular Fbjvftctrs1215-25-17 05:14:00* Test Item Value Reference Range Interpretation Comments Mean Corpuscular Hemoglobin (test code = 785-6) 28.9 28-32 [facility]Mean Corpuscular Hemoglobin Concent 2018-10-23 05:14:00* Test Item Value Reference Range Interpretation Comments Mean Corpuscular Hemoglobin Concent (test code = 786-4) 32.6 31-35 [facility] HospitalRed Cell Distribution Rilns5615-14-05 05:14:00* Test Item Value Reference Range Interpretation Comments Red Cell Distribution Width (test code = 74041-8) 13.2 11.7 -14.4 [facility] HospitalPlatelet Zbzar2645-82-13 05:14:00* Test Item Value Reference Range Interpretation Comments Platelet Count (test code = 777-3) 174 140-360 [facility] HospitalNeutrophils (%) (Auto)2018-10-23 05:14:00 * Test Item Value Reference Range Interpretation Comments Neutrophils (%) (Auto) (test code = 36984-7) 50.2 38.7-80.0 [facility] HospitalLymphocytes (%) (Auto)2018-10-23 05:14:00 * Test Item Value Reference Range Interpretation Comments Lymphocytes (%) (Auto) (test code = 736-9) 36.8 18.0-39.1 [facility] HospitalMonocytes (%) (Auto)2018-10-23 05:14:00* Test Item Value Reference Range Interpretation Comments Monocytes (%) (Auto) (test code = 5905-5) 7.5 4.4-11.3 [facility] HospitalEosinophils (%) (Auto)2018-10-23 05:14:00 * Test Item Value Reference Range Interpretation Comments Eosinophils (%) (Auto) (test code = 713-8) 4.9 0.0-6.0 [facility] HospitalBasophils (%) (Auto)2018-10-23 05:14:00* Test Item Value Reference Range Interpretation Comments Basophils (%) (Auto) (test code = 706-2) 0.3 0.0-1.0 [facility] HospitalIM GRANULOCYTES %2018-10-23 05:14:00* Test Item Value Reference Range Interpretation Comments IM GRANULOCYTES % (test code = IM GRANULOCYTES %) 0.3 0.0- 1.0 [facility] HospitalNeutrophils # (Auto)2018-10-23 05:14:00* Test Item Value Reference Range Interpretation Comments Neutrophils # (Auto) (test code = 751-8) 3.1 2.1-6.9 [facility] HospitalLymphocytes # (Auto)2018-10-23 05:14:00* Test Item Value Reference Range Interpretation Comments Lymphocytes # (Auto) (test code = 61372-4) 2.3 1.0-3.2 [facility] HospitalMonocytes # (Auto)2018-10-23 05:14:00* Test Item Value Reference Range Interpretation Comments Monocytes # (Auto) (test code = 742-7) 0.5 0.2-0.8 [facility] HospitalEosinophils # (Auto)2018-10-23 05:14:00* Test Item Value Reference Range Interpretation Comments Eosinophils # (Auto) (test code = 711-2) 0.3 0.0-0.4 [facility] HospitalBasophils # (Auto)2018-10-23 05:14:00* Test Item Value Reference Range Interpretation Comments Basophils # (Auto) (test code = 704-7) 0.0 0.0-0.1 [facility] HospitalAbsolute Immature Granulocyte (auto 2018-10-23 05:14:00* Test Item Value Reference Range Interpretation Comments Absolute Immature Granulocyte (auto (jesus t code = Absolute Immature Granulocyte (auto) 0.02 0-0.1 [facility] Lactof[facility])2018-10-22 22:28:00* Test Item Value Reference Range Interpretation Comments Stool Lactoferrin (LAB) (test code = 18391-6) NEGATIVE NEGATIVE Testing on stool aspirate specimens is outside airport driver claims since specime n type not validated on this assay.[facility] Texast[facility] Lactoferrin (LAB)2018-10-22 22:28:00* Test Item Value Reference Range Interpretation Comments Stool Lactoferrin (LAB) (test code = 14623-0) NEGATIVE NEGATIVE Testing on stool aspirate specimens is outside airport driver claims since specime n type not validated on this assay.[facility] Lactoferrin (LAB)2018-10-22 22:28:00* Test Item Value Reference Range Interpretation Comments Stool Lactoferrin (LAB) (test code = 18039-6) NEGATIVE NEGATIVE Testing on stool aspirate specimens is outside airport driver claims since specime n type not validated on this assay.[facility] Lactoferrin (LAB)2018-10-22 22:28:00* Test Item Value Reference Range Interpretation Comments Stool Lactoferrin (LAB) (test code = 37272-0) NEGATIVE NEGATIVE Testing on stool aspirate specimens is outside airport driver claims since specime n type not validated on this assay.[facility] Lactoferrin (LAB)2018-10-22 22:28:00* Test Item Value Reference Range Interpretation Comments Stool Lactoferrin (LAB) (test code = 26113-4) NEGATIVE NEGATIVE Testing on stool aspirate specimens is outside airport driver claims since specime n type not validated on this assay.[facility] SWO0940-84-03 11:16:00 [place] [address] Patient Name: SASHA POPE MR #: [id number] : 1965 Age/Sex: 53/F Req #: [id number] Adm Physician: CIRO HERNANDEZ MD Ordered by: NATTY COOK MD Report #: [id number] Location: MED/SURG2 [place] [facility] [facility] [place] Procedure: 0308- 0001 MRI/MRI MRCP WWO Exam [...] ABDOMEN ACUTE SERIES W/PA CXR 2018-10-21 07:14:00 [place] [address] Patient Name: SASHA POPE MR #: [id number] : 1965 Age/Sex: 53/F Req #: [id number] Adm Physician: CIRO HERNANDEZ MD Ordered by: DEISY DE LA FUENTE MD Report #: [id number] Location: MED/SURG2 Room/Bed: 200 Procedure: DX/ABDOMEN ACUTE SERIES W/PA CXR Exam [...] DEISY DE LA FUENTE MD CT ABDOMEN/PELVIS D5803-42-28 14:05:00 [place] [address] Patient Name: SASHA POPE MR #: [id number] : 1965 Age/Sex: 53/F Req #: [id number] Adm Physician: CIRO HERNANDEZ MD Ordered by: CIRO HERNANDEZ MD Report #: [id number] Location: MED/SURG2 Room/Bed: 200 Procedure: 0307-[address]/CT ABDOMEN/PELVIS W Exam [...] 2:23 PM Dictated By: PRERNA NUÑEZ DO 142 Transcribed By: GARO on 10/20/18 1423 COPY TO: CIRO HERNANDEZ MD Lipase 2018-10-20 06:05:00* Test Item Value Reference Range Interpretation Comments Lipase (test code = 3040-3) 21 8-78 [facility] HospitalLactic Acid Zwknd0369-35-46 05:59:00* Test Item Value Reference Range Interpretation Comments Lactic Acid Level (test code = Lactic Acid Level) 11.9 4.5- 19.8 [facility] HospitalLactic Acid Actnl8901-76-89 05:59:00* Test Item Value Reference Range Interpretation Comments Lactic Acid Level (test code = Lactic Acid Level) 11.9 4.5- 19.8 [facility] Oisvz4459-53-37 05:59:00* Test Item Value Reference Range Interpretation Comments Lactic Acid Level (test code = Lactic Acid Level) 11.9 4.5- 19.8 [facility] Hgqej0651-07-06 05:59:00* Test Item Value Reference Range Interpretation Comments Lactic Acid Level (test code = Lactic Acid Level) 11.9 4.5- 19.8 [facility] HospitalLactic Acid Ubywd8831-19-86 05:59:00* Test Item Value Reference Range Interpretation Comments Lactic Acid Level (test code = Lactic Acid Level) 11.9 4.5- 19.8 [facility] HospitalCT ABD/PEL WO DWXMAARP-FGSL4244-89-07 01:23:00 [facility] [address] [place] [address] Patient Name: SASHA POPE MR #: [id number] : 1965 Age/Sex: 53/F Req #: [id number] Adm Physician: Ordered by: CARLEEN ALBERT MD Report #: [id number] Location: [facility] Room/Bed: Procedure: 030 7-0001 HOPD/CT ABD/PEL WO CONTRAST-HOPD Exam Date: 10/20/18 Exam Time: 44 REPORT STAT US: Signed EXAM: CT Abdomen and Pelvis WITHOUT contrast INDICATION: Right upper quadrant pain. [id number] COMPARISON: CT abdomen and pelvis 05/03/2018 [...] on 10/20/2018 1:31 AM Dictated By: [facility]Z [facility] Signed By: LOPEZ HENSNO MD on 10/20/18130 Transcribed By: GARO on 0 10/20/18130 COPY TO: CARLEEN ALBERT MD Stool Calprotectin 2018-07-05 13:59:00* Test Item Value Reference Range Interpretation Comments Stool Calprotectin (test code = 08306-0) <16 0-120 Concentration Interpretation Follow-Up<16 - 50 ug/g Normal None>50 -120 ug/g Borderline Re-evaluate in 4-6 weeks >120 ug/g Abnormal Repeat as clinically indicatedPerformed at: [facility] [address] [id number] Director: Murali Mitchell MD, Phone: [phone] [facility] & [facility] Zvuukqiikbnp5007-95-28 13:59:00* Test Item Value Reference Range Interpretation Comments Stool Calprotectin (test code = 55669-3) <16 0-120 Concentration Interpretation Follow-Up<16 - 50 ug/g Normal None>50 -120 ug/g Borderline Re-evaluate in 4-6 weeks >120 ug/g Abnormal Repeat as clinically indicatedPerformed at: [facility] [address] [id number] Director: Murali Mitchell MD, Phone: [phone] Scott & [facility] Ufqmflfrhwvb0374-29-57 13:59:00* Test Item Value Reference Range Interpretation Comments Stool Calprotectin (test code = 40461-9) <16 0-120 Concentration Interpretation Follow-Up<16 - 50 ug/g Normal None>50 -120 ug/g Borderline Re-evaluate in 4-6 weeks >120 ug/g Abnormal Repeat as clinically indicatedPerformed at: [facility] [address] [id number] Director: Murali Mitchell MD, Phone: [phone] Scott & [facility] Yhwvvzswuizo3893-38-01 13:59:00* Test Item Value Reference Range Interpretation Comments Stool Calprotectin (test code = 51907-1) <16 0-120 Concentration Interpretation Follow-Up<16 - 50 ug/g Normal None>50 -120 ug/g Borderline Re-evaluate in 4-6 weeks >120 ug/g Abnormal Repeat as clinically indicatedPerformed at: [facility] CenterOgddpycnqi[address] [place], [place] [id number] Director: Murali Mitchell MD, Phone: [phone] [facility]ertool Suxflkckkjpb1208-13-60 13:59:00* Test Item Value Reference Range Interpretation Comments Stool Calprotectin (test code = 27205-6) <16 0-120 Concentration Interpretation Follow-Up<16 - 50 ug/g Normal None>50 -120 ug/g Borderline Re-evaluate in 4-6 weeks >120 ug/g Abnormal Repeat as clinically indicatedPerformed at: - [facility] CenterXrhunzvtpq0517 [place], [place] [id number] Director: Murali Mitchell MD, Phone: [phone] Central TexasP LUMBAR, COMPLETE MIN 8VW0540-95-84 13:44:00 [place] [address] Patient Name: SASHA POPE MR #: [id number] : 1965 Age/Sex: 53/F Req #: [id number] Adm Physician: Ordered by: CIRO HERNANDEZ MD Report #: [id number] Location: [facility] Room/Bed: Procedure: [id number] DX/SP LUMBAR, COMPLETE MIN 4VW Exam Date: [...] 1:55 PM Dictated By: ISHMAEL KATHLEEN MD 135 Transcribed By: GARO on 07/04/18 1351 COPY TO: CIRO HERNANDEZ MD SACRUM [id number]-[id number] 13:44:00 [place] [address] Patient Name: SASHA POPE MR #: [id number] : 1965 Age/Sex: 53/F Req #: [id number] Adm Physician: Ordered by: CIRO HERNANDEZ MD Report #: [id number] Location: [facility] Room/Bed: Procedure: [id number] DX/SA ROSENDO X-RAY Exam Date: 07/04/18 Exam [...] 1:55 PM Dictated By: ISHMAEL KATHLEEN MD 7490 Transcribed By: GARO on 07/04/18 8250 COPY TO: CIRO HERNANDEZ MD Clostridium Difficile Toxin A & G3558-95-77 13:03:00* Test Item Value Reference Range Interpretation Comments Clostridium Difficile Toxin A & B (test code = 501322005) NEGATIVE NEGATIVE Testing on stool aspirate specimens is outside airport driver claims since specime n type not validated on this assay.[facility] Clostridium Difficile Toxin A & F4041-26-60 13:03:00* Test Item Value Reference Range Interpretation Comments Clostridium Difficile Toxin A & B (test code = 337975459) NEGATIVE NEGATIVE Testing on stool aspirate specimens is outside airport driver claims since specime n type not validated on this assay.[facility] Clostridium Difficile Toxin A & J9933-30-24 13:03:00* Test Item Value Reference Range Interpretation Comments Clostridium Difficile Toxin A & B (test code = 984860410) NEGATIVE NEGATIVE Testing on stool aspirate specimens is outside airport driver claims since specime n type not validated on this assay.[facility] Clostridium Difficile Toxin A & E7978-91-97 13:03:00* Test Item Value Reference Range Interpretation Comments Clostridium Difficile Toxin A & B (test code = 820249091) NEGATIVE NEGATIVE Testing on stool aspirate specimens is outside airport driver claims since specime n type not validated on this assay.[facility] Clostridium Difficile Toxin A & U3854-86-05 13:03:00* Test Item Value Reference Range Interpretation Comments Clostridium Difficile Toxin A & B (test code = 520614507) NEGATIVE NEGATIVE Testing on stool aspirate specimens is outside airport driver claims since specime n type not validated on this assay.[facility] Lactoferrin (LAB)2018-06-29 14:35:00* Test Item Value Reference Range Interpretation Comments Stool Lactoferrin (LAB) (test code = 39788-1) NEGATIVE NEGATIVE Testing on stool aspirate specimens is outside airport driver claims since specime n type not validated on this assay.[facility] Texasodium Jxogc1326-75-99 05:20:00* Test Item Value Reference Range Interpretation Comments Sodium Level (test code = 2951-2) 142 136-145 [facility] HospitalPotassium Xtpqz9988-53-19 05:20:00* Test Item Value Reference Range Interpretation Comments Potassium Level (test code = 2823-3) 3.8 3.5-5.1 [facility] HospitalChloride Tdjxv8061-11-38 05:20:00* Test Item Value Reference Range Interpretation Comments Chloride Level (test code = 2075-0) 109 98-107 H [facility] HospitalCarbon Dioxide Sujdx5939-48-07 05:20:00* Test Item Value Reference Range Interpretation Comments Carbon Dioxide Level (test code = 2028-9) 23 22-29 [facility] HospitalAnion Lce7353-76-40 05:20:00* Test Item Value Reference Range Interpretation Comments Anion Gap (test code = 71018-7) 13.8 8-16 [facility] HospitalBlood Urea Vkhfdprt8956-26-59 05:20:00* Test Item Value Reference Range Interpretation Comments Blood Urea Nitrogen (test code = 3094-0) 5 7-26 L [facility] HospitalCreatinine2018-10-20 05:20:00* Test Item Value Reference Range Interpretation Comments Creatinine (test code = 2160-0) 0.79 0.57-1.11 [facility] HospitalBUN/Creatinine Xeryp9556-83-03 05:20:00* Test Item Value Reference Range Interpretation Comments BUN/Creatinine Ratio (test code = 3097-3) 6 6-25 [facility] HospitalEstimat Glomerular Filtration Rate 2018-06-04 05:20:00* Test Item Value Reference Range Interpretation Comments Estimat Glomerular Filtration Rate (test code = 269232754) > 60 >60 Ranges were taken from the National Kidney Disease Education Program and the [employer] literature.Reference ranges:60 or greater: Urnnww93-91 ( for 3 consecutive months): Chronic kidney disease 15 or less: Kidney failureMethodist Southlake HospitalGlucose Nltfk6822-89-42 05:20:00* Test Item Value Reference Range Interpretation Comments Glucose Level (test code = ASM2793) 101 74-118 [facility] HospitalCalcium Milyi1413-85-27 05:20:00* Test Item Value Reference Range Interpretation Comments Calcium Level (test code = 44693-1) 9.1 8.4-10.2 [facility] HospitalTotal Gawgxltwm6196-78-87 05:20:00* Test Item Value Reference Range Interpretation Comments Total Bilirubin (test code = 1975-2) 0.3 0.2-1.2 [facility] HospitalAspartate Amino Transf (AST/SGOT) 2018-06-04 05:20:00* Test Item Value Reference Range Interpretation Comments Aspartate Amino Transf (AST/SGOT) (test code = Aspartate Amino Transf (AST/SGOT)) 36 5-34 H [facility] HospitalAlanine Aminotransferase (ALT/SGPT) 2018-06-04 05:20:00* Test Item Value Reference Range Interpretation Comments Alanine Aminotransferase (ALT/SGPT) (test code = 1742-6) 41 0-55 [facility] HospitalTotal Hatxkko8201-60-71 05:20:00* Test Item Value Reference Range Interpretation Comments Total Protein (test code = 2885-2) 6.5 6.5-8.1 [facility] HospitalAlbumin2018-10-20 05:20:00* Test Item Value Reference Range Interpretation Comments Albumin (test code = 1751-7) 3.1 3.5-5.0 L [facility] HospitalGlobulin2018-10-20 05:20:00* Test Item Value Reference Range Interpretation Comments Globulin (test code = 04214-6) 3.4 2.3-3.5 [facility] HospitalAlbumin/Globulin Xenuk3303-61-31 05:20:00 * Test Item Value Reference Range Interpretation Comments Albumin/Globulin Ratio (test code = 1759-0) 0.9 0.8-2.0 [facility] HospitalAlkaline Yqqfoxfxwcm6674-84-65 05:20:00* Test Item Value Reference Range Interpretation Comments Alkaline Phosphatase (test code = 6768-6) 66 40-150 [facility] HospitalWhite Blood Vlmbk2906-96-58 05:17:00* Test Item Value Reference Range Interpretation Comments White Blood Count (test code = 6690-2) 5.28 4.8-10.8 [facility] HospitalRed Blood Epztw1641-02-99 05:17:00* Test Item Value Reference Range Interpretation Comments Red Blood Count (test code = 789-8) 3.82 3.6-5.1 [facility] HospitalHemoglobin2018-10-20 05:17:00* Test Item Value Reference Range Interpretation Comments Hemoglobin (test code = 35321-1) 10.6 12.0-16.0 L [facility] HospitalHematocrit2018-10-20 05:17:00* Test Item Value Reference Range Interpretation Comments Hematocrit (test code = 4544-3) 32.9 34.2-44.1 L [facility] HospitalMean Corpuscular Kzrton7628-69-05 05:17:00* Test Item Value Reference Range Interpretation Comments Mean Corpuscular Volume (test code = 787-2) 86.1 81-99 [facility] HospitalMean Corpuscular Swciuvgdut2698-23-83 05:17:00* Test Item Value Reference Range Interpretation Comments Mean Corpuscular Hemoglobin (test code = 785-6) 27.7 28-32 L [facility] HospitalMean Corpuscular Hemoglobin Concent 2018-06-04 05:17:00* Test Item Value Reference Range Interpretation Comments Mean Corpuscular Hemoglobin Concent (test code = 786-4) 32.2 31-35 [facility] HospitalRed Cell Distribution Uwkwg5751-79-47 05:17:00* Test Item Value Reference Range Interpretation Comments Red Cell Distribution Width (test code = 74139-8) 15.5 11.7 -14.4 H [facility] HospitalPlatelet Exczv8896-73-50 05:17:00* Test Item Value Reference Range Interpretation Comments Platelet Count (test code = 777-3) 169 140-360 [facility] HospitalNeutrophils (%) (Auto)2018-06-04 05:17:00 * Test Item Value Reference Range Interpretation Comments Neutrophils (%) (Auto) (test code = 35420-2) 53.2 38.7-80.0 [facility] HospitalLymphocytes (%) (Auto)2018-06-04 05:17:00 * Test Item Value Reference Range Interpretation Comments Lymphocytes (%) (Auto) (test code = 736-9) 35.6 18.0-39.1 [facility] HospitalMonocytes (%) (Auto)2018-06-04 05:17:00* Test Item Value Reference Range Interpretation Comments Monocytes (%) (Auto) (test code = 5905-5) 7.6 4.4-11.3 [facility] HospitalEosinophils (%) (Auto)2018-06-04 05:17:00 * Test Item Value Reference Range Interpretation Comments Eosinophils (%) (Auto) (test code = 713-8) 3.2 0.0-6.0 [facility] HospitalBasophils (%) (Auto)2018-06-04 05:17:00* Test Item Value Reference Range Interpretation Comments Basophils (%) (Auto) (test code = 706-2) 0.4 0.0-1.0 [facility] HospitalIM GRANULOCYTES %2018-06-04 05:17:00* Test Item Value Reference Range Interpretation Comments IM GRANULOCYTES % (test code = IM GRANULOCYTES %) 0.0 0.0- 1.0 [facility] HospitalNeutrophils # (Auto)2018-06-04 05:17:00* Test Item Value Reference Range Interpretation Comments Neutrophils # (Auto) (test code = 751-8) 2.8 2.1-6.9 [facility] HospitalLymphocytes # (Auto)2018-06-04 05:17:00* Test Item Value Reference Range Interpretation Comments Lymphocytes # (Auto) (test code = 14309-5) 1.9 1.0-3.2 [facility] HospitalMonocytes # (Auto)2018-06-04 05:17:00* Test Item Value Reference Range Interpretation Comments Monocytes # (Auto) (test code = 742-7) 0.4 0.2-0.8 [facility] HospitalEosinophils # (Auto)2018-06-04 05:17:00* Test Item Value Reference Range Interpretation Comments Eosinophils # (Auto) (test code = 711-2) 0.2 0.0-0.4 [facility] HospitalBasophils # (Auto)2018-06-04 05:17:00* Test Item Value Reference Range Interpretation Comments Basophils # (Auto) (test code = 704-7) 0.0 0.0-0.1 [facility] HospitalAbsolute Immature Granulocyte (auto 2018-06-04 05:17:00* Test Item Value Reference Range Interpretation Comments Absolute Immature Granulocyte (auto (jesus t code = Absolute Immature Granulocyte (auto) 0 0-0.1 [facility]astool Occult Ozajr4939-79-01 12:23:00* Test Item Value Reference Range Interpretation Comments Stool Occult Blood (test code = 2335-8) NEGATIVE NEGATIVE [facility] HospitalUS ABDOMEN NTQGETOA2204-92-17 09:29:00 [place] [address] Patient Name: SASHA POPE MR #: [id number] : 1965 Age/Sex: 53/F Req #: [id number] Adm Physician: CIRO HERNANDEZ MD Ordered by: CIRO HERNANDEZ MD Report #: [id number] Location: [facility] Room/Bed: [place] [address] Procedure: [id number] US/U S ABDOMEN COMPLETE Exam Date: Exam [...] HERNANDEZ MD ABDOMEN COMP INCL UPR or XVQGW6993-57-21 03:05:00 [place] [address] Patient Name: SASHA POPE MR #: [id number] : 1965 Age/Sex: 53/F Req #: [id number] Adm Physician: CIRO HERNANDEZ MD Ordered by: CIRO HERNANDEZ MD Report #: [id number] Location: [facility] Room/Bed: [address] Procedure: [id number] DX/A BDOMEN COMP INCL UPR or DECUB [...] PY TO: CIRO HERNANDEZ MD Erythrocyte Sedimentation Wjdh2379-34-13 21:02:00* Test Item Value Reference Range Interpretation Comments Erythrocyte Sedimentation Rate (test code = 4537-7) 41 0- 20 H [facility] HospitalErythrocyte Sedimentation Ungi5760-53-37 21:02:00* Test Item Value Reference Range Interpretation Comments Erythrocyte Sedimentation Rate (test code = 4537-7) 41 0- 20 H [facility] HospitalErythrocyte Sedimentation Pdpc9770-53-31 21:02:00* Test Item Value Reference Range Interpretation Comments Erythrocyte Sedimentation Rate (test code = 4537-7) 41 0- 20 H [facility] HospitalErythrocyte Sedimentation Pwqn7025-63-42 21:02:00* Test Item Value Reference Range Interpretation Comments Erythrocyte Sedimentation Rate (test code = 4537-7) 41 0- 20 H [facility] HospitalAmylase Gmbcq5073-22-54 20:51:00* Test Item Value Reference Range Interpretation Comments Amylase Level (test code = 1798-8) 63 25-125 [facility] HospitalLipase2018-10-18 20:51:00* Test Item Value Reference Range Interpretation Comments Lipase (test code = 3040-3) 16 8-78 [facility] HospitalAmylase Unmpa1363-13-73 20:51:00* Test Item Value Reference Range Interpretation Comments Amylase Level (test code = 1798-8) 63 25-125 [facility] HospitalAmylase Pdbuq1281-31-64 20:51:00* Test Item Value Reference Range Interpretation Comments Amylase Level (test code = 1798-8) 63 25-125 [facility] HospitalAmylase Jxtke9105-99-06 20:51:00* Test Item Value Reference Range Interpretation Comments Amylase Level (test code = 1798-8) 63 25-125 [facility] HospitalUrine CRA7616-19-76 20:33:00* Test Item Value Reference Range Interpretation Comments Urine WBC (test code = 5821-4) NONE 0-5 [facility] HospitalUrine HWJ0373-75-46 20:33:00* Test Item Value Reference Range Interpretation Comments Urine RBC (test code = 53455-7) NONE 0-5 [facility] HospitalUrine Cnjtrixr3905-55-10 20:33:00* Test Item Value Reference Range Interpretation Comments Urine Bacteria (test code = 90086-9) FEW NONE [facility] HospitalUrine Epithelial Bcvhg5223-57-55 20:33:00 * Test Item Value Reference Range Interpretation Comments Urine Epithelial Cells (test code = 58647-9) MODERATE NONE [facility] HospitalUrine ZWV7738-75-92 20:33:00* Test Item Value Reference Range Interpretation Comments Urine WBC (test code = 5821-4) NONE 0-5 [facility] KNG3645-95-89 20:33:00* Test Item Value Reference Range Interpretation Comments Urine RBC (test code = 86453-4) NONE 0-5 [facility] Xlaoarzo4252-30-12 20:33:00* Test Item Value Reference Range Interpretation Comments Urine Bacteria (test code = 68128-3) FEW NONE [facility] Epithelial Bygdj4635-67-04 20:33:00 * Test Item Value Reference Range Interpretation Comments Urine Epithelial Cells (test code = 42737-4) MODERATE NONE [facility] Fdydw4342-67-48 20:23:00* Test Item Value Reference Range Interpretation Comments Urine Color (test code = 5778-6) YELLOW YELLOW [facility] Mvwgbjt5993-69-32 20:23:00* Test Item Value Reference Range Interpretation Comments Urine Clarity (test code = 82790-3) SL CLOUDY CLEAR [facility] Specific Onnlpjp2047-34-94 20:23:00 * Test Item Value Reference Range Interpretation Comments Urine Specific [place] (test code = 5811-5) 1.005 1.010-1.02 5 L [facility] dK3762-88-78 20:23:00* Test Item Value Reference Range Interpretation Comments Urine pH (test code = 89198-9) 6 5-7 [facility] Leukocyte Vuxdmvzy7234-80-06 20:23:00* Test Item Value Reference Range Interpretation Comments Urine Leukocyte Esterase (test code = 5799-2) NEGATIVE NEGATIVE [facility] Mmejkvi9778-94-09 20:23:00* Test Item Value Reference Range Interpretation Comments Urine Nitrite (test code = 32147-1) NEGATIVE NEGATIVE [facility] Pmimmpa9309-18-07 20:23:00* Test Item Value Reference Range Interpretation Comments Urine Protein (test code = 5804-0) NEGATIVE NEGATIVE [facility] Glucose (UA)2018-06-02 20:23:00* Test Item Value Reference Range Interpretation Comments Urine Glucose (UA) (test code = 2349-9) NEGATIVE NEGATIVE [facility] Jbfflzz2529-00-37 20:23:00* Test Item Value Reference Range Interpretation Comments Urine Ketones (test code = 48662-2) NEGATIVE NEGATIVE [facility] Evkzvhielbkh9027-86-05 20:23:00* Test Item Value Reference Range Interpretation Comments Urine Urobilinogen (test code = 28131-6) 0.2 0.2-1 [facility] Apdivnjyb1984-29-78 20:23:00* Test Item Value Reference Range Interpretation Comments Urine Bilirubin (test code = 1978-6) NEGATIVE NEGATIVE [facility] Mmtfq4482-77-42 20:23:00* Test Item Value Reference Range Interpretation Comments Urine Blood (test code = 40291-5) TRACE NEGATIVE H [facility] Bucdg8368-57-13 20:23:00* Test Item Value Reference Range Interpretation Comments Urine Color (test code = 5778-6) YELLOW YELLOW [facility] Thsmeyb7364-76-56 20:23:00* Test Item Value Reference Range Interpretation Comments Urine Clarity (test code = 46499-1) SL CLOUDY CLEAR [facility] Specific Fhxmaco7076-17-01 20:23:00 * Test Item Value Reference Range Interpretation Comments Urine Specific [place] (test code = 5811-5) 1.005 1.010-1.02 5 L [facility] wS3118-64-55 20:23:00* Test Item Value Reference Range Interpretation Comments Urine pH (test code = 88810-2) 6 5-7 [facility] Leukocyte Yilmutjm1550-32-46 20:23:00* Test Item Value Reference Range Interpretation Comments Urine Leukocyte Esterase (test code = 5799-2) NEGATIVE NEGATIVE [facility] Fcbzvqs1476-17-53 20:23:00* Test Item Value Reference Range Interpretation Comments Urine Nitrite (test code = 25181-0) NEGATIVE NEGATIVE [facility] Bnzizxl6790-77-23 20:23:00* Test Item Value Reference Range Interpretation Comments Urine Protein (test code = 5804-0) NEGATIVE NEGATIVE [facility] Glucose (UA)2018-06-02 20:23:00* Test Item Value Reference Range Interpretation Comments Urine Glucose (UA) (test code = 2349-9) NEGATIVE NEGATIVE [facility] Ielvjcc0861-88-01 20:23:00* Test Item Value Reference Range Interpretation Comments Urine Ketones (test code = 22786-1) NEGATIVE NEGATIVE [facility] Qgsocjwqjgey9037-63-71 20:23:00* Test Item Value Reference Range Interpretation Comments Urine Urobilinogen (test code = 40568-5) 0.2 0.2-1 [facility] Cdrbbwbfu2276-58-35 20:23:00* Test Item Value Reference Range Interpretation Comments Urine Bilirubin (test code = 1978-6) NEGATIVE NEGATIVE [facility] Cnyoj5491-72-43 20:23:00* Test Item Value Reference Range Interpretation Comments Urine Blood (test code = 03512-4) TRACE NEGATIVE H [facility] HospitalCHEST SINGLE (NOT PORTABLE)2018-06-02 19:48:00 [place] [address] Patient Name: SASHA POPE MR #: [id number] : 1965 Age/Sex: 53/F Req #: [id number] Adm Physician: CIRO HERNANDEZ MD Ordered by: CIRO HERNANDEZ MD Report #: [id number] Location: [facility] Room/Bed: [place] [address] Procedure: [id number] DX/C HEST SINGLE (NOT PORTABLE) Exam Date: [...] CIRO HERNANDEZ MD [facility] Whole Egje2066-75-12 15:00:45Patient: SASHA POPE Date/Time05/27/2018 13:00 CDTReason for ExamC18.0 R10.84ReportLocation [id number] BONE SCANHistory: R10.84 .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 [address] [address] Patient Name: SASHA POPE MR #: [id number] : 1965 Age/Sex: 53/F Req #: [id number] Adm Physician: Ordered by: DARREN PERSAUD MD Report #: [id number] Location: [facility] Room /Bed: Procedure: [id number] HOPD/CT ABD/PEL WO CONTRAS T-HOPD Exam Date: [...] WINN MD CT Abdomen and Pelvis w/ Arqkdhth8944-49-68 22:23:12 Patient: SASHA POPE am Date/Time03/03/2018 22:08 CDTReason for ExamFeverReportCT SCAN OF THE ABDOMEN AND PELVIS WITH CONTRASTLocation: [id number] HISTORY: Abdominal pain and fev er prior [...] Signature): 03/03/2018 10:23 pmXR Chest 1 View Unnpgaq0298-55-57 20:28:10Patient: SASHA POPE Date/Time03/03/2018 20:24 CDTReason for ExamFeverReportCHEST X-RAY 1 VIEWLocation: [id number] HISTORY: FeverTechnique:A single frontal view of the chest was obtained. Comparison made to prior study February 18, 2018Findings:Mild degenerative spurring is present at the right shoulder. The aortic, hilar, and cardiac outlines are normal. The lungs are clear of infiltrates or nodules. No pneumothorax. No pleural effusions. Small medical assistant overlies upper half of the cardiac silhouette.IMPRESSION:No acute findings. Clear lungs. Final Dictated by: MD Rivera Maria VDictated DT/TM: 03/03/2018 8:27 pmSigned by: MD Rivera Maria VSigned (Electronic Signature): 03/03/2018 8:28 pmXR Chest 1 View Rfppcdj7216-25-75 08:07:13Patient: SASHA POPE Date/Time02/18/2018 05:41 CDTReason for Examchest tube removal;Other (please specify)QnuzrqE09OUNV: XR Chest 1 View FrontalHISTORY: Other (please [...] (Electronic Signature): 02/18/2018 8:07 amXR Chest 2 Ktkxb3105-97-84 15:13:02Patient: SASHA POPE Date/Time02/17/2018 10:16 CDTReason for ExamChest tube placementReportDictation location D90Tpymb 2 views.HISTORY: Chest tube placementCOMMENT: Compared to [...] Signature): 02/17/2018 3:13 pmXR Chest 1 View Qddlysd9257-45-21 07:48:53Patient: SASHA POPE Date/Time02/17/2018 05:53 CDTReason for ExamLine smijvthbmAqjesiS65SSVF: XR Chest 1 View FrontalHISTORY: Line placementCOMPARISON: [...] both lungs. Final Dictated by: MD Cortés VivekDisaturnino DT/TM: 02/17/2018 7:46 amSigned by: MD Cortés VivekSigned (Electronic Signature): 02/17/2018 7:48 amXR Chest 1 View Bdfouxt9899-54-85 09:03:54Patient: SASHA POPE Date/Time02/16/2018 08:39 CDTReason for [...] Signature): 02/16/2018 9:03 amXR Chest 1 View Rflckwx5263-81-32 14:09:46 Patient: SASHA POPE am Date/Time02/15/2018 13:54 [...] (Electronic Signature): 02/15/2018 2:09 pmXR Chest 2 Rhgue6672-74-98 12:23:28Patient: SASHA POPE Date/Time01/31/2018 12:11 CDTReason for [...] (Electronic S ignature): 01/31/2018 12:23 pmCT Biopsy Dislc5992-36-89 13:40:17Patient: SASHA POPE Date/Time01/20/2018 11:30 CDTReason for ExamD30.00ReportCT GUIDED CORE NEEDLE B IOPSY OF A LEFT RENAL MASSCLINICAL INDICATION: D30.00OPERATORS: Alan Tee MD SEDATION: Under physician supervision, intravenous Versed and fentanyl were admi nistered for moderate sedation. Pulse oximetry, heart rate, and blood pressure w ere continuously monitored by a dedicated IR trained nurse. The physician spent 30 minutes of continuous ggtw-dz-pknz sedation time with the patient.TECHNIQUE:T he risks, [...] core needle biopsies were made. The pa thologist/dairy farm supervisor present on site determined the sample to [...] (test code = 2951-2) 137 136-145 [facility]Potassium Kpgst2171-06-33 01:14:00* Test Item Value Reference Range Interpretation Comments Potassium Level (test code = 2823-3) 3.6 3.5-5.1 [facility] HospitalChloride Vkcyy2390-30-90 01:14:00* Test Item Value Reference Range Interpretation Comments Chloride Level (test code = 2075-0) 105 98-107 [facility] HospitalCarbon Dioxide Cuusz9891-67-02 01:14:00* Test Item Value Reference Range Interpretation Comments Carbon Dioxide Level (test code = 2028-9) 21 22-29 L [facility] HospitalAnion Lkq1767-44-80 01:14:00* Test Item Value Reference Range Interpretation Comments Anion Gap (test code = 30439-4) 14.6 8-16 [facility] HospitalBlood Urea Khjzjfyx9259-73-53 01:14:00* Test Item Value Reference Range Interpretation Comments Blood Urea Nitrogen (test code = 3094-0) 18 7-26 [facility] HospitalCreatinine2018-02-17 01:14:00* Test Item Value Reference Range Interpretation Comments Creatinine (test code = 2160-0) 0.76 0.57-1.11 [facility] HospitalBUN/Creatinine Arluy4989-39-59 01:14:00* Test Item Value Reference Range Interpretation Comments BUN/Creatinine Ratio (test code = 3097-3) 24 6-25 [facility] HospitalEstimat Glomerular Filtration Rate 2017-10-02 01:14:00* Test Item Value Reference Range Interpretation Comments Estimat Glomerular Filtration Rate (test code = 11227-6) 60- >60 Ranges were taken from the National Kidney Disease Education Program and the [employer] community [employer] literature.Reference ranges:60 or greater: Plvdpn31-16 ( for 3 consecutive months): Chronic kidney disease 15 or less: Kidney failureMethodist [facility]lake HospitalGlucose Ttsxt5022-08-63 01:14:00* Test Item Value Reference Range Interpretation Comments Glucose Level (test code = OKD2060) 117 74-118 [facility] HospitalCalcium Xuhsc2440-52-29 01:14:00* Test Item Value Reference Range Interpretation Comments Calcium Level (test code = 72106-6) 8.8 8.4-10.2 [facility] HospitalTotal Dmvoqgqlo5142-22-92 01:14:00* Test Item Value Reference Range Interpretation Comments Total Bilirubin (test code = 1975-2) -0.3 0.2-1.2 [facility] HospitalAspartate Amino Transf (AST/SGOT) 2017-10-02 01:14:00* Test Item Value Reference Range Interpretation Comments Aspartate Amino Transf (AST/SGOT) (test code = Aspartate Amino Transf (AST/SGOT)) 31 5-34 [facility] HospitalAlanine Aminotransferase (ALT/SGPT) 2017-10-02 01:14:00* Test Item Value Reference Range Interpretation Comments Alanine Aminotransferase (ALT/SGPT) (test code = 1742-6) 36 0-55 [facility] HospitalTotal Togkvip7055-93-25 01:14:00* Test Item Value Reference Range Interpretation Comments Total Protein (test code = 2885-2) 7.8 6.5-8.1 [facility] HospitalAlbumin2018-02-17 01:14:00* Test Item Value Reference Range Interpretation Comments Albumin (test code = 1751-7) 3.5 3.5-5.0 [facility] HospitalGlobulin2018-02-17 01:14:00* Test Item Value Reference Range Interpretation Comments Globulin (test code = 54015-9) 4.3 2.3-3.5 H [facility] HospitalAlbumin/Globulin Hhskl2756-40-31 01:14:00 * Test Item Value Reference Range Interpretation Comments Albumin/Globulin Ratio (test code = 1759-0) 0.8 0.8-2.0 [facility] HospitalAlkaline Zfxylsflusy5579-11-35 01:14:00* Test Item Value Reference Range Interpretation Comments Alkaline Phosphatase (test code = 6768-6) 80 40-150 [facility] HospitalAmylase Czsov7442-85-77 01:14:00* Test Item Value Reference Range Interpretation Comments Amylase Level (test code = 1798-8) 113 25-125 [facility] HospitalLipase2018-02-17 01:14:00* Test Item Value Reference Range Interpretation Comments Lipase (test code = 3040-3) 31 8-78 [facility] Klabk9607-57-91 01:14:00* Test Item Value Reference Range Interpretation Comments Sodium Level (test code = 2951-2) 137 136-145 [facility] HospitalPotassium Ntzlm5924-84-42 01:14:00* Test Item Value Reference Range Interpretation Comments Potassium Level (test code = 2823-3) 3.6 3.5-5.1 [facility] HospitalChloride Exvhq6022-47-13 01:14:00* Test Item Value Reference Range Interpretation Comments Chloride Level (test code = 2075-0) 105 98-107 [facility] HospitalCarbon Dioxide Yidgs7300-30-03 01:14:00* Test Item Value Reference Range Interpretation Comments Carbon Dioxide Level (test code = 2028-9) 21 22-29 L [facility] HospitalAnion Aqv0063-25-50 01:14:00* Test Item Value Reference Range Interpretation Comments Anion Gap (test code = 72575-9) 14.6 8-16 [facility] HospitalBlood Urea Wwdcvyrt3142-43-93 01:14:00* Test Item Value Reference Range Interpretation Comments Blood Urea Nitrogen (test code = 3094-0) 18 7-26 [facility] HospitalCreatinine2018-02-17 01:14:00* Test Item Value Reference Range Interpretation Comments Creatinine (test code = 2160-0) 0.76 0.57-1.11 [facility] HospitalBUN/Creatinine Lzlxg1644-88-50 01:14:00* Test Item Value Reference Range Interpretation Comments BUN/Creatinine Ratio (test code = 3097-3) 24 6-25 [facility] HospitalEstimat Glomerular Filtration Rate 2017-10-02 01:14:00* Test Item Value Reference Range Interpretation Comments Estimat Glomerular Filtration Rate (test code = 828612108) 60- >60 Ranges were taken from the National Kidney Disease Education Program and the [facility] community health[facility] Kid[employer] Foundation literature.Reference ranges:60 or greater: Cjdmtq11-49 ( for 3 consecutive months): Chronic kidney disease 15 or less: Kidney failureMethodist Southlake HospitalGlucose Jupvv3688-49-24 01:14:00* Test Item Value Reference Range Interpretation Comments Glucose Level (test code = OJP2622) 117 74-118 [facility] HospitalCalcium Ocrxj0330-61-88 01:14:00* Test Item Value Reference Range Interpretation Comments Calcium Level (test code = 48042-9) 8.8 8.4-10.2 [facility] HospitalTotal Dadakcgbk7795-83-58 01:14:00* Test Item Value Reference Range Interpretation Comments Total Bilirubin (test code = 1975-2) -0.3 0.2-1.2 [facility] HospitalAspartate Amino Transf (AST/SGOT) 2017-10-02 01:14:00* Test Item Value Reference Range Interpretation Comments Aspartate Amino Transf (AST/SGOT) (test code = Aspartate Amino Transf (AST/SGOT)) 31 5-34 [facility] HospitalAlanine Aminotransferase (ALT/SGPT) 2017-10-02 01:14:00* Test Item Value Reference Range Interpretation Comments Alanine Aminotransferase (ALT/SGPT) (test code = 1742-6) 36 0-55 [facility] HospitalTotal Retkyet8666-55-67 01:14:00* Test Item Value Reference Range Interpretation Comments Total Protein (test code = 2885-2) 7.8 6.5-8.1 [facility] HospitalAlbumin2018-02-17 01:14:00* Test Item Value Reference Range Interpretation Comments Albumin (test code = 1751-7) 3.5 3.5-5.0 [facility] HospitalGlobulin2018-02-17 01:14:00* Test Item Value Reference Range Interpretation Comments Globulin (test code = 70322-6) 4.3 2.3-3.5 H [facility] HospitalAlbumin/Globulin Wnwpv4187-77-98 01:14:00 * Test Item Value Reference Range Interpretation Comments Albumin/Globulin Ratio (test code = 1759-0) 0.8 0.8-2.0 [facility] HospitalAlkaline Ulksdeybxtr0051-15-92 01:14:00* Test Item Value Reference Range Interpretation Comments Alkaline Phosphatase (test code = 6768-6) 80 40-150 [facility] HospitalAmylase Fdxac2000-63-39 01:14:00* Test Item Value Reference Range Interpretation Comments Amylase Level (test code = 1798-8) 113 25-125 [facility] HospitalLipase2018-02-17 01:14:00* Test Item Value Reference Range Interpretation Comments Lipase (test code = 3040-3) 31 8-78 [facility] HospitalUrine FGJ4291-52-01 00:59:00* Test Item Value Reference Range Interpretation Comments Urine WBC (test code = 5821-4) 0-5 0-5 [facility] HospitalU[facility] VLU3140-84-23 00:59:00* Test Item Value Reference Range Interpretation Comments Urine RBC (test code = 30719-1) 0-5 0-5 [facility] HospitalU[facility] Loearvxo0364-58-89 00:59:00* Test Item Value Reference Range Interpretation Comments Urine Bacteria (test code = 71190-2) RARE NONE [facility] HospitalUrine Epithelial Dlsyj7534-47-72 00:59:00 * Test Item Value Reference Range Interpretation Comments Urine Epithelial Cells (test code = 91608-5) FEW NONE [facility] HospitalU[facility] XQH0262-14-03 00:59:00* Test Item Value Reference Range Interpretation Comments Urine WBC (test code = 5821-4) 0-5 0-5 [facility] GJB8682-35-28 00:59:00* Test Item Value Reference Range Interpretation Comments Urine RBC (test code = 76285-8) 0-5 0-5 [facility] HospitalUrine Vdmtepac6526-29-06 00:59:00* Test Item Value Reference Range Interpretation Comments Urine Bacteria (test code = 72289-2) RARE NONE [facility] HospitalU[facility] Epithelial Ycpfd3660-34-58 00:59:00 * Test Item Value Reference Range Interpretation Comments Urine Epithelial Cells (test code = 00893-2) FEW NONE [facility] HospitalU[facility] Lccro8752-50-01 00:54:00* Test Item Value Reference Range Interpretation Comments Urine Color (test code = 5778-6) YELLOW YELLOW [facility] HospitalU[facility] Jjznvdd0336-15-29 00:54:00* Test Item Value Reference Range Interpretation Comments Urine Clarity (test code = 19959-5) CLEAR CLEAR [facility] HospitalUrine Specific Ctawdnp7025-64-44 00:54:00 * Test Item Value Reference Range Interpretation Comments Urine Specific [place] (test code = 5811-5) 1.005 1.010-1.02 5 L [facility] HospitalUrine dZ5236-22-10 00:54:00* Test Item Value Reference Range Interpretation Comments Urine pH (test code = 30930-7) 6.5 5-7 [facility] Leukocyte Qvkoqrdm6942-21-39 00:54:00* Test Item Value Reference Range Interpretation Comments Urine Leukocyte Esterase (test code = 5799-2) NEGATIVE NEGATIVE [facility] HospitalUrine Axwwssn6461-13-99 00:54:00* Test Item Value Reference Range Interpretation Comments Urine Nitrite (test code = 84234-8) NEGATIVE NEGATIVE [facility] HospitalU[facility] Pjgbxzy9285-04-78 00:54:00* Test Item Value Reference Range Interpretation Comments Urine Protein (test code = 5804-0) NEGATIVE NEGATIVE [facility] HospitalU[facility] Glucose (UA)2017-10-02 00:54:00* Test Item Value Reference Range Interpretation Comments Urine Glucose (UA) (test code = 2349-9) NEGATIVE NEGATIVE [facility] Dliwoij4543-98-71 00:54:00* Test Item Value Reference Range Interpretation Comments Urine Ketones (test code = 82972-5) NEGATIVE NEGATIVE [facility] Gxyigsaoceel6236-40-54 00:54:00* Test Item Value Reference Range Interpretation Comments Urine Urobilinogen (test code = 77217-1) 0.2 0.2-1 [facility] Gnwtmxlhc3450-15-40 00:54:00* Test Item Value Reference Range Interpretation Comments Urine Bilirubin (test code = 1978-6) NEGATIVE NEGATIVE [facility] Klqpw7266-41-14 00:54:00* Test Item Value Reference Range Interpretation Comments Urine Blood (test code = 05689-1) NEGATIVE NEGATIVE [facility] Fkerk3387-20-67 00:54:00* Test Item Value Reference Range Interpretation Comments Urine Color (test code = 5778-6) YELLOW YELLOW [facility] Pdotmxc9839-53-36 00:54:00* Test Item Value Reference Range Interpretation Comments Urine Clarity (test code = 65688-2) CLEAR CLEAR [facility] Specific Xkxdpki9889-23-11 00:54:00 * Test Item Value Reference Range Interpretation Comments Urine Specific [place] (test code = 5811-5) 1.005 1.010-1.02 5 L [facility] vX1008-50-67 00:54:00* Test Item Value Reference Range Interpretation Comments Urine pH (test code = 01574-3) 6.5 5-7 [facility] Leukocyte Fleqzkdf3116-44-33 00:54:00* Test Item Value Reference Range Interpretation Comments Urine Leukocyte Esterase (test code = 5799-2) NEGATIVE NEGATIVE [facility] Obufwrl4852-20-34 00:54:00* Test Item Value Reference Range Interpretation Comments Urine Nitrite (test code = 09381-6) NEGATIVE NEGATIVE [facility] Bskybcm3311-21-29 00:54:00* Test Item Value Reference Range Interpretation Comments Urine Protein (test code = 5804-0) NEGATIVE NEGATIVE [facility] Glucose (UA)2017-10-02 00:54:00* Test Item Value Reference Range Interpretation Comments Urine Glucose (UA) (test code = 2349-9) NEGATIVE NEGATIVE [facility] Iknzthz7049-19-76 00:54:00* Test Item Value Reference Range Interpretation Comments Urine Ketones (test code = 77628-5) NEGATIVE NEGATIVE [facility] Gxtacwscijcp6076-36-01 00:54:00* Test Item Value Reference Range Interpretation Comments Urine Urobilinogen (test code = 23012-0) 0.2 0.2-1 [facility] Csxndwlub9481-89-19 00:54:00* Test Item Value Reference Range Interpretation Comments Urine Bilirubin (test code = 1978-6) NEGATIVE NEGATIVE [facility] Jycek6366-34-85 00:54:00* Test Item Value Reference Range Interpretation Comments Urine Blood (test code = 67928-6) NEGATIVE NEGATIVE [facility] HospitalWhite Blood Vznfl8372-90-01 00:53:00* Test Item Value Reference Range Interpretation Comments White Blood Count (test code = 6690-2) 8.39 4.8-10.8 [facility] HospitalRed Blood Siadg2264-02-99 00:53:00* Test Item Value Reference Range Interpretation Comments Red Blood Count (test code = 789-8) 4.23 3.6-5.1 [facility] HospitalHemoglobin2018-02-17 00:53:00* Test Item Value Reference Range Interpretation Comments Hemoglobin (test code = 80793-1) 9.8 12.0-16.0 L [facility] HospitalHematocrit2018-02-17 00:53:00* Test Item Value Reference Range Interpretation Comments Hematocrit (test code = 4544-3) 31.9 34.2-44.1 L [facility] HospitalMean Corpuscular Daipgz7256-90-11 00:53:00* Test Item Value Reference Range Interpretation Comments Mean Corpuscular Volume (test code = 787-2) 75.4 81-99 L [facility] HospitalMean Corpuscular Gixsopfsxd9830-62-98 00:53:00* Test Item Value Reference Range Interpretation Comments Mean Corpuscular Hemoglobin (test code = 785-6) 23.2 28-32 L [facility] HospitalMean Corpuscular Hemoglobin Concent 2017-10-02 00:53:00* Test Item Value Reference Range Interpretation Comments Mean Corpuscular Hemoglobin Concent (test code = 786-4) 30.7 31-35 L [facility] HospitalRed Cell Distribution Xfixp5740-53-05 00:53:00* Test Item Value Reference Range Interpretation Comments Red Cell Distribution Width (test code = 58274-4) 17.0 11.7 -14.4 H [facility] HospitalPlatelet Jcxan4304-87-61 00:53:00* Test Item Value Reference Range Interpretation Comments Platelet Count (test code = 777-3) 246 140-360 [facility] HospitalNeutrophils (%) (Auto)2017-10-02 00:53:00 * Test Item Value Reference Range Interpretation Comments Neutrophils (%) (Auto) (test code = 31691-7) 51.3 38.7-80.0 [facility]Lymph[facility] (%) (Auto)2017-10-02 00:53:00 * Test Item Value Reference Range Interpretation Comments Lymphocytes (%) (Auto) (test code = 736-9) 37.8 18.0-39.1 [facility] HospitalMonocytes (%) (Auto)2017-10-02 00:53:00* Test Item Value Reference Range Interpretation Comments Monocytes (%) (Auto) (test code = 5905-5) 6.1 4.4-11.3 [facility]Eosinophils (%) (Auto)2017-10-02 00:53:00 * Test Item Value Reference Range Interpretation Comments Eosinophils (%) (Auto) (test code = 713-8) 4.4 0.0-6.0 [facility]Basophils (%) (Auto)2017-10-02 00:53:00* Test Item Value Reference Range Interpretation Comments Basophils (%) (Auto) (test code = 706-2) 0.2 0.0-1.0 [facility] HospitalIM GRANULOCYTES %2017-10-02 00:53:00* Test Item Value Reference Range Interpretation Comments IM GRANULOCYTES % (test code = IM GRANULOCYTES %) 0.2 0.0- 1.0 [facility] HospitalNeutrophils # (Auto)2017-10-02 00:53:00* Test Item Value Reference Range Interpretation Comments Neutrophils # (Auto) (test code = 751-8) 4.3 2.1-6.9 [facility] HospitalLymphocytes # (Auto)2017-10-02 00:53:00* Test Item Value Reference Range Interpretation Comments Lymphocytes # (Auto) (test code = 95678-1) 3.2 1.0-3.2 [facility] HospitalMonocytes # (Auto)2017-10-02 00:53:00* Test Item Value Reference Range Interpretation Comments Monocytes # (Auto) (test code = 742-7) 0.5 0.2-0.8 [facility] HospitalEosinophils # (Auto)2017-10-02 00:53:00* Test Item Value Reference Range Interpretation Comments Eosinophils # (Auto) (test code = 711-2) 0.4 0.0-0.4 [facility] HospitalBasophils # (Auto)2017-10-02 00:53:00* Test Item Value Reference Range Interpretation Comments Basophils # (Auto) (test code = 704-7) 0.0 0.0-0.1 [facility] HospitalAbsolute Immature Granulocyte (auto 2017-10-02 00:53:00* Test Item Value Reference Range Interpretation Comments Absolute Immature Granulocyte (auto (jesus t code = Absolute Immature Granulocyte (auto) 0.02 0-0.1 [facility] HospitalWhite Blood Sidlu4885-15-41 00:53:00* Test Item Value Reference Range Interpretation Comments White Blood Count (test code = 6690-2) 8.39 4.8-10.8 [facility] HospitalRed Blood Fgyww1954-40-72 00:53:00* Test Item Value Reference Range Interpretation Comments Red Blood Count (test code = 789-8) 4.23 3.6-5.1 [facility] HospitalHemoglobin2018-02-17 00:53:00* Test Item Value Reference Range Interpretation Comments Hemoglobin (test code = 16795-8) 9.8 12.0-16.0 L [facility] HospitalHematocrit2018-02-17 00:53:00* Test Item Value Reference Range Interpretation Comments Hematocrit (test code = 4544-3) 31.9 34.2-44.1 L [facility] HospitalMean Corpuscular Lwvlar3959-08-25 00:53:00* Test Item Value Reference Range Interpretation Comments Mean Corpuscular Volume (test code = 787-2) 75.4 81-99 L [facility] HospitalMean Corpuscular Wmurmkpgbe1206-67-49 00:53:00* Test Item Value Reference Range Interpretation Comments Mean Corpuscular Hemoglobin (test code = 785-6) 23.2 28-32 L [facility] HospitalMean Corpuscular Hemoglobin Concent 2017-10-02 00:53:00* Test Item Value Reference Range Interpretation Comments Mean Corpuscular Hemoglobin Concent (test code = 786-4) 30.7 31-35 L [facility] HospitalRed Cell Distribution Nzqmm5428-69-45 00:53:00* Test Item Value Reference Range Interpretation Comments Red Cell Distribution Width (test code = 87753-0) 17.0 11.7 -14.4 H [facility] HospitalPlatelet Uuxlo6047-71-68 00:53:00* Test Item Value Reference Range Interpretation Comments Platelet Count (test code = 777-3) 246 140-360 [facility] HospitalNeutrophils (%) (Auto)2017-10-02 00:53:00 * Test Item Value Reference Range Interpretation Comments Neutrophils (%) (Auto) (test code = 92868-6) 51.3 38.7-80.0 [facility] HospitalLymphocytes (%) (Auto)2017-10-02 00:53:00 * Test Item Value Reference Range Interpretation Comments Lymphocytes (%) (Auto) (test code = 736-9) 37.8 18.0-39.1 [facility] HospitalMonocytes (%) (Auto)2017-10-02 00:53:00* Test Item Value Reference Range Interpretation Comments Monocytes (%) (Auto) (test code = 5905-5) 6.1 4.4-11.3 [facility] HospitalEosinophils (%) (Auto)2017-10-02 00:53:00 * Test Item Value Reference Range Interpretation Comments Eosinophils (%) (Auto) (test code = 713-8) 4.4 0.0-6.0 [facility] HospitalBasophils (%) (Auto)2017-10-02 00:53:00* Test Item Value Reference Range Interpretation Comments Basophils (%) (Auto) (test code = 706-2) 0.2 0.0-1.0 [facility] HospitalIM GRANULOCYTES %2017-10-02 00:53:00* Test Item Value Reference Range Interpretation Comments IM GRANULOCYTES % (test code = IM GRANULOCYTES %) 0.2 0.0- 1.0 [facility] HospitalNeutrophils # (Auto)2017-10-02 00:53:00* Test Item Value Reference Range Interpretation Comments Neutrophils # (Auto) (test code = 751-8) 4.3 2.1-6.9 [facility] HospitalLymphocytes # (Auto)2017-10-02 00:53:00* Test Item Value Reference Range Interpretation Comments Lymphocytes # (Auto) (test code = 66355-7) 3.2 1.0-3.2 [facility] HospitalMonocytes # (Auto)2017-10-02 00:53:00* Test Item Value Reference Range Interpretation Comments Monocytes # (Auto) (test code = 742-7) 0.5 0.2-0.8 [facility] HospitalEosinophils # (Auto)2017-10-02 00:53:00* Test Item Value Reference Range Interpretation Comments Eosinophils # (Auto) (test code = 711-2) 0.4 0.0-0.4 [facility] HospitalBasophils # (Auto)2017-10-02 00:53:00* Test Item Value Reference Range Interpretation Comments Basophils # (Auto) (test code = 704-7) 0.0 0.0-0.1 [facility] HospitalAbsolute Immature Granulocyte (auto 2017-10-02 00:53:00* Test Item Value Reference Range Interpretation Comments Absolute Immature Granulocyte (auto (jesus t code = Absolute Immature Granulocyte (auto) 0.02 0-0.1 [facility] HospitalCreatine Kinase HH2732-65-55 06:56:00* Test Item Value Reference Range Interpretation Comments Creatine Kinase MB (test code = 99539-1) 0.80 0.00-5.00 [facility] HospitalTroponin J3559-98-76 06:56:00* Test Item Value Reference Range Interpretation Comments Troponin I (test code = ELB9811) 0.014 0-0.300 [facility] HospitalCreatine Kinase YH3048-30-23 06:56:00* Test Item Value Reference Range Interpretation Comments Creatine Kinase MB (test code = 75702-1) 0.80 0.00-5.00 [facility] HospitalTroponin K3984-21-07 06:56:00* Test Item Value Reference Range Interpretation Comments Troponin I (test code = FWZ6284) 0.014 0-0.300 [facility] HospitalCreatine Gbdxzm7578-31-50 06:53:00* Test Item Value Reference Range Interpretation Comments Creatine Kinase (test code = 2157-6) 38 29-168 [facility]Cre[facility] Upprdq5646-77-60 06:53:00* Test Item Value Reference Range Interpretation Comments Creatine Kinase (test code = 2157-6) 38 29-168 [facility] HospitalProthrombin Yrza7652-45-74 16:16:00* Test Item Value Reference Range Interpretation Comments Prothrombin Time (test code = 5902-2) 12.9 11.9-14.5 [facility] HospitalProthromb Time International Ratio 2017-07-26 16:16:00* Test Item Value Reference Range Interpretation Comments Prothromb Time International Ratio (test code = 6301-6) 0.93 Oral Anticoagulant Therapy INR Values:1. Low Intensity Therapy 1.5 - 2.02 . Moderate Intensity Therapy 2.0 - 3.03. High Intensity Therapy(1) 2.5 - 3. 54. High Intensity Therapy(2) 3.0 - 4.05. Panic Value INR > 5.0 [facility] HospitalActivated Partial Thromboplast Time 2017-07-26 16:16:00* Test Item Value Reference Range Interpretation Comments Activated Partial Thromboplast Time (test code = 32457-1) 24.4 23.8-35.5 [facility] HospitalProthrombin Hrcs5823-83-61 16:16:00* Test Item Value Reference Range Interpretation Comments Prothrombin Time (test code = 5902-2) 12.9 11.9-14.5 [facility] HospitalProthromb Time International Ratio 2017-07-26 16:16:00* Test Item Value Reference Range Interpretation Comments Prothromb Time International Ratio (test code = 6301-6) 0.93 Oral Anticoagulant Therapy INR Values:1. Low Intensity Therapy 1.5 - 2.02 . Moderate Intensity Therapy 2.0 - 3.03. High Intensity Therapy(1) 2.5 - 3. 54. High Intensity Therapy(2) 3.0 - 4.05. Panic Value INR > 5.0 [facility] HospitalActivated Partial Thromboplast Time 2017-07-26 16:16:00* Test Item Value Reference Range Interpretation Comments Activated Partial Thromboplast Time (test code = 67955-3) 24.4 23.8-35.5 [facility] HospitalTriglycerides Gwoug5966-15-67 06:54:00* Test Item Value Reference Range Interpretation Comments Triglycerides Level (test code = 2571-8) 161 0-149 H [facility] HospitalCholesterol Faqfp2827-38-08 06:54:00* Test Item Value Reference Range Interpretation Comments Cholesterol Level (test code = 2093-3) 161 0-199 Less than 200 mg/dL Low Zvty697 - 239 mg/dL Borderline Fvvx056 m g/dl and greater High Risk [facility] HospitalLDL Iaxotmvuuhb2536-62-99 06:54:00* Test Item Value Reference Range Interpretation Comments LDL Cholesterol (test code = 44375-4) 81 60-130 [facility] HospitalHDL Gwgrsxchkjc9460-15-55 06:54:00* Test Item Value Reference Range Interpretation Comments HDL Cholesterol (test code = 2085-9) 48 40-60 [facility] HospitalCholesterol/HDL Zlhot3222-43-27 06:54:00 * Test Item Value Reference Range Interpretation Comments Cholesterol/HDL Ratio (test code = 9830-1) 3.4 3.0-3.6 [facility] HospitalUrine Opiates Bgchvm5699-68-08 04:55:00* Test Item Value Reference Range Interpretation Comments Urine Opiates Screen (test code = 55982-6) NEGATIVE NEGATIVE [facility] HospitalUrine Barbiturates Akvlnl3924-35-83 04:55:00* Test Item Value Reference Range Interpretation Comments Urine Barbiturates Screen (test code = 247044507) NEGATIVE NEGA TIVE [facility] HospitalUrine Phencyclidine Kxshqi0527-69-94 04:55:00* Test Item Value Reference Range Interpretation Comments Urine Phencyclidine Screen (test code = 70961-7) NEGATIVE NEGAT JESS [facility] HospitalUrine Amphetamines Wjbsjk2515-07-87 04:55:00* Test Item Value Reference Range Interpretation Comments Urine Amphetamines Screen (test code = 98800-6) NEGATIVE NEGATI VE [facility] HospitalUrine Benzodiazepines Dcxxno1051-71-02 04:55:00* Test Item Value Reference Range Interpretation Comments Urine Benzodiazepines Screen (test code = 11615-1) NEGATIVE NEG ATIVE [facility] HospitalUrine Cocaine Epxqdj3970-41-26 04:55:00* Test Item Value Reference Range Interpretation Comments Urine Cocaine Screen (test code = Urine Cocaine Screen) NEGATIVE NEGATIVE [facility] HospitalUrine Cannabinoids Tqluur9514-21-67 04:55:00* Test Item Value Reference Range Interpretation Comments Urine Cannabinoids Screen (test code = 81752-4) NEGATIVE NEGATI VE THESE RESULTS ARE FOR MEDICAL TREATMENT ONLYTHIS REPORT CONTAINS UNCONFIR MED SCREENING RESULTS*POSITIVE RESULTS WILL BE CONFIRMED BY REFERENCE LAB UPON R EQUEST CUT-OFFDRUG CLASS CONCENTRATION ng/mLAmphetamines 1000Methamphetamines 1000Cocaine 300Opiate 300Phencyc lidine 25Cannabinoid 50Barbiturates 300Benzodiazepine 300Methadone 300[facility] HospitalThyroid Stimulating Hormone (TSH)2017-07-01 03:44:00* Test Item Value Reference Range Interpretation Comments Thyroid Stimulating Hormone (TSH) (test code = 95431-5) 3.278 0.350-4.940 [facility] HospitalMagnesium Mjyan4113-26-08 03:29:00* Test Item Value Reference Range Interpretation Comments Magnesium Level (test code = 07839-8) 2.3 1.3-2.1 H [facility] HospitalDifferential Total Cells Counted 2017-06-07 12:11:00* Test Item Value Reference Range Interpretation Comments Differential Total Cells Counted (test code = Differen tial Total Cells Counted) 100 [facility] HospitalNeutrophils % (Manual)2017-06-07 12:11:00 * Test Item Value Reference Range Interpretation Comments Neutrophils % (Manual) (test code = 19801-1) 31 40-74 L [facility] HospitalLymphocytes % (Manual)2017-06-07 12:11:00 * Test Item Value Reference Range Interpretation Comments Lymphocytes % (Manual) (test code = 737-7) 50 19-48 H [facility] HospitalMonocytes % (Manual)2017-06-07 12:11:00* Test Item Value Reference Range Interpretation Comments Monocytes % (Manual) (test code = 744-3) 9 3.4-9.0 [facility] HospitalEosinophils % (Manual)2017-06-07 12:11:00 * Test Item Value Reference Range Interpretation Comments Eosinophils % (Manual) (test code = 714-6) 4 0-7 [facility] HospitalMetamyelocytes %2017-06-07 12:11:00* Test Item Value Reference Range Interpretation Comments Metamyelocytes % (test code = 740-1) 1 0-0 H [facility] HospitalReactive Fsamdnnsbkm5308-95-12 12:11:00* Test Item Value Reference Range Interpretation Comments Reactive Lymphocytes (test code = 11865-3) 5 [facility] HospitalPlatelet Itjaxlxf9722-90-65 12:11:00* Test Item Value Reference Range Interpretation Comments Platelet Estimate (test code = 27709-4) ADEQUATE [facility] HospitalPlatelet Morphology Qpblknt5301-42-70 12:11:00* Test Item Value Reference Range Interpretation Comments Platelet Morphology Comment (test code = 55246-7) NORMAL [facility] HospitalHypochromasia2017-10-23 12:11:00* Test Item Value Reference Range Interpretation Comments Hypochromasia (test code = 728-6) SLIGHT [facility] HospitalAnisocytosis2017-10-23 12:11:00* Test Item Value Reference Range Interpretation Comments Anisocytosis (test code = 702-1) SLIGHT [facility] HospitalRed Cell Morphology Rovixyo8053-49-07 12:11:00* Test Item Value Reference Range Interpretation Comments Red Cell Morphology Comment (test code = 6742-1) [facility]AL [facility] [address] [address] Patient Name: SASHA POPE MR #: [id number] : 1965 Age/Sex: 52/F Req #: [id number] Adm Physician: Ordered by: ANN CHADWICK MD Report #: [id number] Location: ER Room/Bed: Procedure: [id number] CT/CT ABDOMEN/PELVIS W Exam Date: 10/02/17 Exam Time: 147 REPORT STA TUS: Signed EXAM: CT ABDOMEN/PELVIS [...] TO: ANN CHADWICK MD CHEST 2 VIEWS [place] [address] Patient Name: SASHA POPE MR #: [id number] : 1965 Age/Sex: 52/F Req #: [id number] Adm Physician: Ordered by: DYLAN PRUITT MD Report #: [id number] Location: ER Room/Bed: Procedure: [id number] DX/CHEST 2 VIEWS Exam Date: 07/26/17 Exam [...] DYLAN PRUITT MD CT CERVICAL SPINE WO [place] [address] Patient Name: SASHA POPE MR #: [id number] : 1965 Age/Sex: 52/F Req #: [id number] Adm Physician: Ordered by: DYLAN PRUITT MD Report #: [id number] Location: ER Room/Bed: Procedure: [id number] CT/CT CERVICAL SPINE WO [facility] m Date: 07/26/17 Exam Time: 1530 REPORT [...] TO: DYLAN PRUITT MD CT BRAIN WO [place] [address] Patient Name: SASHA POPE MR #: [id number] : 1965 Age/Sex: 52/F Req #: [id number] Adm Physician: Ordered by: DYLAN PRUITT MD Report #: [id number] Location: Room/Bed: Procedure: [id number] CT/CT BRAIN WO Exam Date: 09/26/16 Exam [...] : DYLAN PRUITT MD CHEST 2 VIEWS [place] [address] Patient Name: SASHA POPE MR #: [id number] : 1965 Age/Sex: 52/F Req #: [id number] Adm Physician: Ordered by: BULMARO THEODORE MD Report #: [id number] Location: ER Room/Bed: Procedure: [id number] DX/CHEST 2 VIEWS Exam Date: 08/31/16 Exam [...] AM Dictated By: ISAAC MCFADDEN MD Electroni [facility] Signed By: ISAAC MCFADDEN MD on 07/01/17346 Transcribed By: GARO on 07/01/17346 COPY TO: BULMARO THEODORE MD CHEST SINGLE (PORTABLE) [place] [address] Patient Name: SASHA POPE MR #: [id number] : 1965 Age/Sex: 52/F Req #: [id number] Adm Physician: Ordered by: HELEN GRIFFIN MD Report #: [id number] Location: ER Room/Bed: Procedure: [id number] DX/CHEST SINGLE (PORTABLE) Exa m Date: 06/07/17 Exam Time: 724 REPORT STATUS: Signed PROCEDURE: A single AP [...] onically Signed By: JOHN UNDERWOOD MD on 06/07/17 075 Transcribed By: JERALD on 075 COPY TO: HELEN GRFIFIN MD
[2020-06-29] MEDS ORDERED: KETOROLAC TROMETHAMINE 60 MG/2 ML VIAL ONE (22:03)
--- NOTE | 2020-06-29 22:08 | Diagnostic Imaging Report ---
X-ray right humerus 2 views HISTORY: Pain. COMPARISON: None available. FINDINGS: Bones: No acute displaced fracture. Osseous alignment is within normal limits. Joints: The joint spaces are well-maintained. Soft tissues: The soft tissues appear unremarkable. IMPRESSION: No acute radiographic abnormality. Signed by: Gurwinder Doty DO on 06/29/2020 10:05 PM
[2020-06-29] MEDS ORDERED: CYCLOBENZAPRINE5 MG PO (22:26)
[2020-06-29] MEDS ORDERED: PREDNISONE20 MG PO (22:26)
[2020-06-29] MEDS ORDERED: PREDNISONE 20 MG TAB PO ONE (22:45)
[2020-06-29] MEDS ORDERED: PREDNISONE 20 MG TAB ONE (22:48)
== END 2020-06-29 22:55 | disposition home or self-care (01) ==
LOC: FSED 21:30
DX: M25.511 Pain in right shoulder (principal); S43.401A Unspecified sprain of right shoulder joint, initial encounter; Z85.038 Personal history of other malignant neoplasm of large intestine; Z85.528 Personal history of other malignant neoplasm of kidney; Z85.850 Personal history of malignant neoplasm of thyroid
CPT/HCPCS: 73060; 99283; J1885; J7512

== ENCOUNTER 2021-02-08 19:50 | Emergency (ER) | payer MEDICARE ==
[~2021-02-08] VITALS: Ht 147.3 cm; Wt 61.2 kg
[~2021-02-08 19:50] MED LIST changes: +CYCLOBENZAPRINE5 MG PO; +PREDNISONE20 MG PO
[2021-02-08] MEDS ORDERED: PREDNISONE50 MG PO (21:07)
[2021-02-08] MEDS ORDERED: CYCLOBENZAPRINE10 MG PO (21:09)
== END 2021-02-08 21:25 | disposition home or self-care (01) ==
LOC: FSED 20:16
DX: M54.16 Radiculopathy, lumbar region (principal); G62.9 Polyneuropathy, unspecified; E03.9 Hypothyroidism, unspecified; Z85.038 Personal history of other malignant neoplasm of large intestine; Z85.528 Personal history of other malignant neoplasm of kidney; Z85.850 Personal history of malignant neoplasm of thyroid
CPT/HCPCS: 81003; 99282

== ENCOUNTER 2021-04-23 20:00 | Emergency (ER) | payer MEDICARE ==
[~2021-04-23] VITALS: Ht 147.3 cm; Wt 61.2 kg
[~2021-04-23 20:00] MED LIST changes: +CYCLOBENZAPRINE10 MG PO; +PREDNISONE50 MG PO
[2021-04-23] MEDS ORDERED: LIDOPATCH1 EACH TOP (21:42)
== END 2021-04-23 22:44 | disposition home or self-care (01) ==
LOC: FSED 20:03
DX: G89.29 Other chronic pain (principal); Z88.5 Allergy status to narcotic agent; R79.89 Other specified abnormal findings of blood chemistry; Z90.5 Acquired absence of kidney
CPT/HCPCS: 74176; 80053; 81003; 85025; 99284

== ENCOUNTER 2022-03-08 19:24 | Emergency (ER) | payer MEDICARE ==
[~2022-03-08] VITALS: Ht 147.3 cm; Wt 63.5 kg
[~2022-03-08 19:24] MED LIST changes: +LEVOTHYROXINE112 MCG PO; +LIDOPATCH1 EACH TOP; +PAXLOVID 150-11 EACH PO
[2022-03-08] MEDS ORDERED: TRAMADOL HCL 50 MG TAB PO STA (19:44)
[2022-03-08] MEDS ORDERED: TRAMADOL HCL 50 MG TAB ONE (19:58)
[2022-03-08 20:27] LABS: CLARITY,URINE CLEAR (CLEAR); COLOR,URINE YELLOW (YELLOW); LEUKOCYTE ESTERASE ,URINE NEGATIVE (NEGATIVE); NITRITE,URINE NEGATIVE (NEGATIVE)
[2022-03-08 20:28] LABS: KETONES,URINE NEGATIVE (NEGATIVE); PROTEIN,URINE DIPSTICK NEGATIVE (NEGATIVE); URINE UROBILINOGEN 1 mg/dL (0.2 - 1)
[2022-03-08 20:35] LABS: BACTERIA,URINE FEW /HPF; EPITHELIAL CELLS,URINE MANY /LPF; WBC,URINE (MAN) 0-5 /HPF (0-5)
[2022-03-08] MEDS ORDERED: FENTANYL CITRATE/PF 100MCG/2 ML INJ IV STA (21:56)
[2022-03-08 22:17] VITALS: BP 151/75
[2022-03-08] MEDS ORDERED: ACETAMINOPHEN-1 EAC4 PO (22:19)
== END 2022-03-08 22:22 | disposition home or self-care (01) ==
LOC: ER 19:28
DX: M54.50 Low back pain, unspecified (principal); E78.5 Hyperlipidemia, unspecified; E03.9 Hypothyroidism, unspecified; K21.9 Gastro-esophageal reflux disease without esophagitis; Z85.038 Personal history of other malignant neoplasm of large intestine; Z85.850 Personal history of malignant neoplasm of thyroid; Z85.528 Personal history of other malignant neoplasm of kidney
CPT/HCPCS: 74176; 81001; 99283; J3010

== ENCOUNTER 2022-06-23 11:29 | Emergency (ER) | payer MEDICARE ==
[~2022-06-23] VITALS: Ht 147.3 cm; Wt 63.5 kg
[~2022-06-23 11:29] MED LIST changes: +ACETAMINOPHEN-1 EAC4 PO
[2022-06-23] MEDS ORDERED: KETOROLAC TROMETHAMINE 30 MG/ML VIAL IV STA (12:28)
[2022-06-23] MEDS ORDERED: DICYCLOMINE HCL 20 MG/2 ML VIAL IM ONE ×2 (12:45→12:52)
[2022-06-23] MEDS ORDERED: DICYCLOMINE HCL10 MG PO (14:16)
[2022-06-23 14:22] VITALS: BP 128/72
== END 2022-06-23 14:24 | disposition home or self-care (01) ==
LOC: FSED 11:35
DX: R10.33 Periumbilical pain (principal); E03.9 Hypothyroidism, unspecified; K21.9 Gastro-esophageal reflux disease without esophagitis; E78.5 Hyperlipidemia, unspecified; M54.9 Dorsalgia, unspecified; G89.29 Other chronic pain; Z85.850 Personal history of malignant neoplasm of thyroid; Z85.528 Personal history of other malignant neoplasm of kidney; Z85.038 Personal history of other malignant neoplasm of large intestine
CPT/HCPCS: 74176; 99284; J0500

== ENCOUNTER 2022-07-20 19:20 | Emergency (ER) | payer MEDICARE ==
[~2022-07-20] VITALS: Ht 147.3 cm; Wt 63.5 kg
[~2022-07-20 19:20] MED LIST changes: +DICYCLOMINE HCL10 MG PO
[2022-07-20] MEDS ORDERED: ONDANSETRON HCL INJ 2MG/ML 2ML 2 MG/ML VIAL IV STA (20:21)
[2022-07-20 20:51] LABS: BASOPHILS % 0.4 % (0.0-1.0); EOSINOPHILS # (AUTO) 0.3 (0.0-0.4); HEMATOCRIT 40.4 % (34.2-44.1); HEMOGLOBIN 12.8 g/dL (12.0-16.0); LYMPHOCYTES # (AUTO) 2.8 (1.0-3.2); LYMPHOCYTES % 35.5 % (18.0-39.1); MEAN CORPUSCULAR HEMOGLOBIN 29.6 pg (28-32); MEAN CORPUSCULAR HGB CONC 31.7 g/dL (31-35); MEAN CORPUSCULAR VOLUME 93.5 fL (81-99); MONOCYTES # (AUTO) 0.4 (0.2-0.8); MONOCYTES % 5.5 % (4.4-11.3); NEUTROPHILS # (AUTO) 4.3 (2.1-6.9); NEUTROPHILS % 54.3 % (38.7-80.0); PLATELET COUNT 224 x10e3/uL (140-360); RED BLOOD COUNT 4.32 x10e6/uL (3.6-5.1); RED CELL DISTRIBUTION WIDTH 12.6 % (11.7-14.4)
[2022-07-20 21:10] LABS: ALBUMIN 3.9 g/dL (3.5-5.0); CREATININE, SERUM 0.83 mg/dL (0.57-1.11)
[2022-07-20 21:17] LABS: CREATINE KINASE MB 0.7 ng/mL (0-5.0)
[2022-07-20] MEDS ORDERED: IOPAMIDOL 370 MG/ML 100 ML INFUS..BTL INJ ONE (21:41)
[2022-07-20 23:02] LABS: CLARITY,URINE CLEAR (CLEAR); COLOR,URINE YELLOW (YELLOW); KETONES,URINE NEGATIVE (NEGATIVE); LEUKOCYTE ESTERASE ,URINE NEGATIVE (NEGATIVE); NITRITE,URINE NEGATIVE (NEGATIVE); PROTEIN,URINE DIPSTICK NEGATIVE (NEGATIVE); URINE UROBILINOGEN 0.2 mg/dL (0.2 - 1)
[2022-07-20 23:14] LABS: BACTERIA,URINE RARE /HPF; EPITHELIAL CELLS,URINE MODERATE /LPF; RBC,URINE 0-5 /HPF (0-5); WBC,URINE (MAN) 0-5 /HPF (0-5)
[2022-07-20 23:28] VITALS: BP 147/61
[2022-07-20] MEDS ORDERED: ONDANSETRON ODT4 MG PO (23:30)
[2022-07-20] MEDS ORDERED: DICYCLOMINE HCL20 MG PO (23:30)
[2022-07-20] MEDS ORDERED: PANTOPRAZOLE SO40 MG PO (23:30)
[2022-07-24] MEDS ORDERED: TRICOR145 MG PO (15:01)
== END 2022-07-20 23:35 | disposition home or self-care (01) ==
LOC: ER 19:50
DX: R11.2 Nausea with vomiting, unspecified (principal); K29.70 Gastritis, unspecified, without bleeding; R10.31 Right lower quadrant pain; E03.9 Hypothyroidism, unspecified; E78.5 Hyperlipidemia, unspecified; K21.9 Gastro-esophageal reflux disease without esophagitis; R94.31 Abnormal electrocardiogram [ECG] [EKG]; Z85.850 Personal history of malignant neoplasm of thyroid; Z85.528 Personal history of other malignant neoplasm of kidney; Z85.038 Personal history of other malignant neoplasm of large intestine
CPT/HCPCS: 36415; 74177; 80053; 81001; 82550; 82553; 83690; 84484; 85025; 93005; 99284; C9113; J2405; Q9967

== ENCOUNTER 2022-09-21 18:59 | Emergency (ER) | payer MEDICARE ==
[~2022-09-21] VITALS: Ht 147.3 cm; Wt 59.0 kg
[~2022-09-21 18:59] MED LIST changes: +DICYCLOMINE HCL20 MG PO; +ONDANSETRON ODT4 MG PO; +TRICOR145 MG PO
[2022-09-21] MEDS ORDERED: METHOCARBAMOL 750 MG TAB PO ONE (20:00)
[2022-09-21] MEDS ORDERED: KETOROLAC TROMETHAMINE 60 MG/2 ML VIAL IM ONE (20:00)
[2022-09-21] MEDS ORDERED: HYDROCODONE/APAP 5MG-325MG TAB PO ONE (20:00)
[2022-09-21] MEDS ORDERED: HYDROCODONE/APAP 5MG-325MG TAB ONE (20:16)
[2022-09-21] MEDS ORDERED: METHOCARBAMOL 750 MG TAB ONE (20:16)
[2022-09-21] MEDS ORDERED: ACETAMINOPHEN-1 EAC4 PO (22:40)
[2022-09-21] MEDS ORDERED: METHOCARBAMOL500 MG PO (22:40)
[2022-09-21 22:49] VITALS: BP 150/80
== END 2022-09-21 22:52 | disposition home or self-care (01) ==
LOC: ER 19:14
DX: M54.16 Radiculopathy, lumbar region (principal); G62.9 Polyneuropathy, unspecified; E78.5 Hyperlipidemia, unspecified; E03.9 Hypothyroidism, unspecified; K21.9 Gastro-esophageal reflux disease without esophagitis; Z85.850 Personal history of malignant neoplasm of thyroid; Z85.528 Personal history of other malignant neoplasm of kidney; Z85.038 Personal history of other malignant neoplasm of large intestine
CPT/HCPCS: 72131; 74176; 99283

== ENCOUNTER → 2022-12-14 | Outpatient (CLI) | payer MEDICARE ==
[~2022-12-14] MED LIST changes: +METHOCARBAMOL500 MG PO
== END ==
LOC: US 14:10
PROVIDERS: ATTEND Internal Medicine
DX: K40.90 Unilateral inguinal hernia, without obstruction or gangrene, not specified as recurrent (principal)
CPT/HCPCS: 76882

== ENCOUNTER 2024-06-13 10:45 | Emergency (ER) | payer MEDICARE ==
[~2024-06-13] VITALS: Ht 147.3 cm; Wt 63.5 kg
[~2024-06-13 10:45] MED LIST changes: +ASPIRIN CHEW81 MG PO; +ATORVASTATIN CA10 MG PO; +ESIDRIX25 MG PO; +LEVOFLOXACIN750 MG PO; +LEVOTHYROXINE100 MCG PO; +TRAZODONE HCL50 MG PO; +ZETIA10 MG PO
[2024-06-13 11:30] VITALS: PULSE 50; RESP 16; TEMP 98.5; O2SAT 100
[2024-06-13] MEDS: DEXAMETHASONE 4 MG TAB PO STA (11:32)
[2024-06-13] MEDS: LIDOCAINE 4% PATCH TP STA (11:33)
[2024-06-13] MEDS: ACETAMINOPHEN 325 MG TAB PO ONE (11:33)
[2024-06-13] MEDS: KETOROLAC TROMETHAMINE 30 MG/ML VIAL IM STA (11:34)
[2024-06-13] MEDS ORDERED: NAPROXEN250 MG PO (11:45)
== END 2024-06-13 11:57 | disposition home or self-care (01) ==
LOC: ER 10:58
DX: S39.012A Strain of muscle, fascia and tendon of lower back, initial encounter (principal); X50.1XXA Overexertion from prolonged static or awkward postures, initial encounter; Y92.89 Other specified places as the place of occurrence of the external cause; E78.5 Hyperlipidemia, unspecified; Z85.038 Personal history of other malignant neoplasm of large intestine; Z85.528 Personal history of other malignant neoplasm of kidney; Z85.850 Personal history of malignant neoplasm of thyroid
CPT/HCPCS: 99282; J1885; J8540

== ENCOUNTER 2024-08-14 18:02 | Emergency (ER) | payer MEDICARE ==
[~2024-08-14] VITALS: Ht 147.3 cm; Wt 63.5 kg
[2024-08-14 18:09] VITALS: PULSE 67; RESP 16; TEMP 98.5
[2024-08-14] MEDS: SODIUM CHLORIDE 0.9% 1000ML 1,000 ML IV SCH (19:00)
[2024-08-14] MEDS: ONDANSETRON HCL INJ 2MG/ML 2ML 2 MG/ML VIAL IV STA (19:00)
[2024-08-14 20:57] VITALS: BP 133/65; PULSE 53; RESP 18; TEMP 98.2; O2SAT 98
== END 2024-08-14 20:57 | disposition home or self-care (01) ==
LOC: FSED 18:07
DX: R53.83 Other fatigue (principal); R53.1 Weakness; R11.0 Nausea; E78.5 Hyperlipidemia, unspecified; E03.9 Hypothyroidism, unspecified; Z11.52 Encounter for screening for COVID-19; Z85.038 Personal history of other malignant neoplasm of large intestine; Z85.528 Personal history of other malignant neoplasm of kidney; Z85.850 Personal history of malignant neoplasm of thyroid
CPT/HCPCS: 0223U; 70450; 71046; 80053; 81003; 83518; 85025; 87400; 99284; J2405; J7030

== ENCOUNTER 2024-10-24 12:11 | Emergency (ER) | payer MEDICARE ==
[~2024-10-24] VITALS: Ht 147.3 cm; Wt 65.4 kg
[2024-10-24] MEDS: ONDANSETRON HCL INJ 2MG/ML 2ML 2 MG/ML VIAL IV STA (14:14)
[2024-10-24] MEDS: FAMOTIDINE 20 MG/2 ML VIAL IV STA (14:15)
[2024-10-24] MEDS: MAGNESIUM/ALUMINUM/SIMETHICONE 30 ML UDC PO ONE (14:15)
[2024-10-24] MEDS: LACTATED RINGER'S 1,000 ML INJ ONE (14:15)
[2024-10-24] MEDS ORDERED: ONDANSETRON ODT4 MG PO (15:34)
[2024-10-24 15:57] VITALS: PULSE 52; RESP 18; TEMP 97.9; O2SAT 98
== END 2024-10-24 15:57 | disposition home or self-care (01) ==
LOC: FSED 12:27
DX: R11.2 Nausea with vomiting, unspecified (principal); K52.9 Noninfective gastroenteritis and colitis, unspecified; R10.30 Lower abdominal pain, unspecified; K57.30 Diverticulosis of large intestine without perforation or abscess without bleeding
CPT/HCPCS: 74177; 80053; 80076; 81003; 83880; 85025; 87400; 99283; J2405; J7121

== ENCOUNTER → 2024-12-12 | Outpatient (REF) | payer MEDICARE | LOC: RAD 11:23 | PROVIDERS: ATTEND Internal Medicine | DX: M76.61 Achilles tendinitis, right leg (principal) ==

== ENCOUNTER → 2025-01-23 | Outpatient (REF) | payer MEDICARE | LOC: US 09:03 | PROVIDERS: ATTEND Nurse Practitioner | DX: K76.0 Fatty (change of) liver, not elsewhere classified (principal) | CPT/HCPCS: 76700 ==

== ENCOUNTER → 2025-02-05 | Day surgery (SDC) | payer MEDICARE ==
[~2025-02-05] MED LIST changes: +LACTATED RINGER'S 1,000 ML ONE; +LIDOCAINE HCL 2% LOCAL INJ 5 ML SDV VIAL INJ ONE; +PROPOFOL IV EMULSION 10 MG/ML 20 ML VIAL ONE; +PROPOFOL IV EMULSION 50 ML IV ONE
[2025-02-05 11:05] VITALS: TEMP 97.7
[2025-02-05 11:35] VITALS: BP 154/89; PULSE 53; RESP 16; O2SAT 98
[2025-02-07 13:12] LABS: ENDOMYSIAL ANTIBODIES, IGA Negative (Negative)
[2025-02-07 14:30] LABS: IMMUNOGLOBULIN A 351 mg/dL (87-352); TISSUE TRANSGLUTAMINASE IGA AB <2 U/mL (0-3)
== END | disposition home or self-care (01) ==
LOC: OR 07:57
PROVIDERS: ATTEND Internal Medicine Gastroenterology
DX: Z08 Encounter for follow-up examination after completed treatment for malignant neoplasm (principal); K57.30 Diverticulosis of large intestine without perforation or abscess without bleeding; K63.5 Polyp of colon; K64.8 Other hemorrhoids; R13.10 Dysphagia, unspecified; K20.90 Esophagitis, unspecified without bleeding; K29.50 Unspecified chronic gastritis without bleeding; E78.00 Pure hypercholesterolemia, unspecified; K76.0 Fatty (change of) liver, not elsewhere classified; Z90.49 Acquired absence of other specified parts of digestive tract; Z90.5 Acquired absence of kidney; Z79.899 Other long term (current) drug therapy; Z85.850 Personal history of malignant neoplasm of thyroid; Z85.528 Personal history of other malignant neoplasm of kidney
CPT/HCPCS: 43239; 43450; 45385; 82784; 83516; 86256; 93005; J2003; J2470; J2704 ×2; J7121; 45378

== ENCOUNTER 2025-03-20 15:36 | Inpatient (IN) | payer MEDICARE ==
[~2025-03-20] VITALS: Ht 147.3 cm; Wt 64.9 kg
[~2025-03-20 15:36] MED LIST changes: -LACTATED RINGER'S 1,000 ML ONE; -LIDOCAINE HCL 2% LOCAL INJ 5 ML SDV VIAL INJ ONE; -PROPOFOL IV EMULSION 10 MG/ML 20 ML VIAL ONE; -PROPOFOL IV EMULSION 50 ML IV ONE
[2025-03-20] MEDS: KETOROLAC TROMETHAMINE 30 MG/ML VIAL IV STA (17:19)
[2025-03-20] MEDS: SODIUM CHLORIDE 0.9% 1000ML 1,000 ML IV ONE (17:20)
[2025-03-20] MEDS: HYDROCODONE/APAP 5MG-325MG TAB PO ONE (19:12)
[2025-03-20] MEDS ORDERED: HYDROMORPHONE 1MG/1ML INJ IV PRN (19:15)
[2025-03-20] MEDS ORDERED: ONDANSETRON HCL INJ 2MG/ML 2ML 2 MG/ML VIAL IV PRN (19:15)
[2025-03-20] MEDS ORDERED: DIPHENHYDRAMINE HCL INJ 50 MG/ML VIAL IV PRN (19:15)
[2025-03-20 21:28] VITALS: PULSE 53; RESP 17; TEMP 97.6
[2025-03-20] MEDS ORDERED: SIMETHICONE 80 MG CHEW PO PRN (22:15)
[2025-03-20] MEDS ORDERED: DOCUSATE SODIUM 100 MG CAP PO PRN (22:15)
[2025-03-20] MEDS ORDERED: POTASSIUM CHLORIDE 20 MEQ TAB CR PO PRN (22:15)
[2025-03-20] MEDS ORDERED: DEXTROSE 50% SYRINGE 50 ML IV PRN (22:15)
[2025-03-20] MEDS ORDERED: ALBUTEROL/IPRATROPIUM 3 ML NEB NEB PRN (22:15)
[2025-03-20] MEDS ORDERED: DIPHENHYDRAMINE HCL 25 MG CAP PO PRN (22:15)
[2025-03-20] MEDS ORDERED: BENZONATATE 100 MG CAP PO PRN (22:15)
[2025-03-20] MEDS ORDERED: HYDRALAZINE HCL 20 MG/ML VIAL IV PRN (22:15)
[2025-03-20] MEDS ORDERED: LIDOCAINE 4% PATCH TP PRN (22:15)
[2025-03-20 23:32] VITALS: BP 138/69; PULSE 51; RESP 18; TEMP 97.6; O2SAT 100
[2025-03-21] VITALS (8 sets, daily range): BP systolic 120–146; BP diastolic 64–80; PULSE 48–79; RESP 17–18; TEMP 97.6–98.3; O2SAT 97–100
[2025-03-21] MEDS ORDERED: HYDROMORPHONE 1MG/1ML INJ IV PRN (01:15)
[2025-03-21] MEDS: SODIUM CHLORIDE 0.9% 1000ML 1,000 ML IV SCH (03:15)
[2025-03-21 06:14] LABS: BASOPHILS % 0.3 % (0.0-1.0); EOSINOPHILS % 5.6 % (0.0-6.0); LYMPHOCYTES % 39.8 % (18.0-39.1); MONOCYTES % 6.4 % (4.4-11.3); NEUTROPHILS % 47.6 % (38.7-80.0); RED CELL DISTRIBUTION WIDTH 13.2 % (11.7-14.4)
[2025-03-21 06:45] LABS: EST GLOMERULAR FILTRATION RATE 98.0 ML/MIN (>=60)
[2025-03-21] MEDS: PANTOPRAZOLE SOD 40 MG TABEC PO SCH (08:42)
[2025-03-21] MEDS: HYDROMORPHONE 1MG/1ML INJ IV PRN (13:57)
[2025-03-21] MEDS: ONDANSETRON HCL INJ 2MG/ML 2ML 2 MG/ML VIAL IV PRN (13:57)
[2025-03-21] MEDS: ENOXAPARIN SOD INJ 40 MG/0.4 ML SYR SC SCH (17:26)
[2025-03-21] MEDS: MELATONIN 5 MG TABLET PO PRN (21:53)
[2025-03-21] MEDS: KETOROLAC TROMETHAMINE 30 MG/ML VIAL IV PRN (21:53)
[2025-03-22] VITALS (10 sets, daily range): BP systolic 114–144; BP diastolic 60–78; PULSE 51–78; RESP 12–18; TEMP 97.7–98.4; O2SAT 98–100
[2025-03-22 06:23] LABS: BASOPHILS % 0.3 % (0.0-1.0); EOSINOPHILS % 3.6 % (0.0-6.0); LYMPHOCYTES % 30.9 % (18.0-39.1); MONOCYTES % 6.5 % (4.4-11.3); NEUTROPHILS % 58.5 % (38.7-80.0); RED CELL DISTRIBUTION WIDTH 13.2 % (11.7-14.4)
[2025-03-22 07:17] LABS: EST GLOMERULAR FILTRATION RATE 97.0 ML/MIN (>=60)
[2025-03-22] MEDS ORDERED: GADOBENATE DIMEGLUMINE 1 ML IV ONE (09:16)
[2025-03-22] MEDS ORDERED: HYDROCODONE/APAP 5MG-325MG TAB PO PRN (12:45)
[2025-03-22] MEDS: TRAZODONE HCL 50 MG TAB PO SCH (21:22)
[2025-03-22] MEDS: EZETIMIBE 10 MG TAB PO SCH (21:23)
[2025-03-23] VITALS: BP 103/53; PULSE 63; RESP 17; TEMP 98.7; O2SAT 100
[2025-03-23 04:00] VITALS: BP 122/78; PULSE 68; RESP 17; TEMP 99.6; O2SAT 97
[2025-03-23] MEDS: LEVOTHYROXINE SODIUM 100 MCG TAB PO SCH (04:59)
[2025-03-23 06:24] LABS: BASOPHILS % 0.2 % (0.0-1.0); EOSINOPHILS % 2.5 % (0.0-6.0); LYMPHOCYTES % 22.3 % (18.0-39.1); MONOCYTES % 11.8 % (4.4-11.3); NEUTROPHILS % 63.0 % (38.7-80.0); RED CELL DISTRIBUTION WIDTH 13.2 % (11.7-14.4)
[2025-03-23] MEDS ORDERED: IOPAMIDOL 370 MG/ML 100 ML INFUS..BTL INJ ONE (06:28)
[2025-03-23 06:53] LABS: EST GLOMERULAR FILTRATION RATE 88.0 ML/MIN (>=60)
[2025-03-23 07:30] VITALS: PULSE 61; RESP 16; O2SAT 97
[2025-03-23 09:18] LABS: HEPATITIS B CORE IGM (P) Negative; HEPATITIS B SURFACE AG (P) Negative
[2025-03-23 09:19] LABS: HEPATITIS A ANTIBODY IGM (P) Negative
[2025-03-23] MEDS: SUCRALFATE 1 GM TAB PO SCH (09:25)
[2025-03-23] MEDS: ACETAMINOPHEN 325 MG TAB PO PRN (09:28)
[2025-03-23 12:00] VITALS: BP 105/59; PULSE 55; RESP 17; TEMP 97.9; O2SAT 99
[2025-03-23 13:36] VITALS: PULSE 63; RESP 16; O2SAT 96
[2025-03-23 16:00] VITALS: BP 132/68; PULSE 63; RESP 18; TEMP 98.1; O2SAT 100
== END 2025-03-23 18:02 | disposition home or self-care (01) | DRG 392 ==
LOC: FSED 16:23 → ERHOLD 19:08 → MED/SURG2 23:13
PROVIDERS: ADMIT Internal Medicine; ATTEND Internal Medicine
DX: R10.11 Right upper quadrant pain (principal); R51.9 Headache, unspecified; E78.5 Hyperlipidemia, unspecified; E89.0 Postprocedural hypothyroidism; R12 Heartburn; K29.70 Gastritis, unspecified, without bleeding; R74.01 Elevation of levels of liver transaminase levels; Z87.442 Personal history of urinary calculi; Z85.038 Personal history of other malignant neoplasm of large intestine; Z85.850 Personal history of malignant neoplasm of thyroid; Z85.528 Personal history of other malignant neoplasm of kidney; Z90.49 Acquired absence of other specified parts of digestive tract; Z90.710 Acquired absence of both cervix and uterus; Z79.890 Hormone replacement therapy; Z79.891 Long term (current) use of opiate analgesic
CPT/HCPCS: 36415; 71260; 74176; 74183; 76705; 80053; 80076; 81003; 83735; 85025; 94799; 99284; J1171; J1650; J1885; J2405; J2470; J7030; Q9967